=== PATIENT | female | born 1945 | race Caucasian/White ===

== ENCOUNTER → 2017-02-05 | Day surgery (SDC) | payer OTHER ==
[2017-01-30 10:48] VITALS: BMI 51.0
[~2017-02-05] VITALS: Ht 167.6 cm; Wt 144.1 kg
[~2017-02-05] MED LIST: ALBINS/ INH; ALBUAER INH; ALLO300T2 PO; ATV1 PO; BUPR200T2 PO; CALC-51 PO; CHOL20009 PO; CMD4 PO; DTR5 PO; DVNC160 PO; ENOX80IN SQ; GLIP-199 PO; INSDGI SC; LIDOCAINE HCL 2% 2 ML VIAL (20MG/ML) ONE; LPT/40 PO; LSX20 PO; OXGN; OXYC-106 PO; OXYC-292 PO; POLY335019 PO; PROPOFOL IV EMULSION 10 MG/ML 20 ML VIAL IV ONE; RANI300T2 PO; SODIUM CHLORIDE 0.9% 500ML 500 ML IV ONE; WARF6TAB5 PO; ZINC1TAB PO
--- NOTE | 2017-02-05 09:15 | Endo History and Physical ---
History & Physical Date of Service: Feb 05, 2017. Chief Complaint: history of polyps Referring Physician: Dr. Shea History of Present Illness history of polyps Past Medical History Diabetes, Arthritis, Gastrointestinal Disorder, Pulmonary Emboli, Anxiety, Blood Dyscrasias, High Cholesterol, Sleep Apnea, Hypertension, Thrombophlebitis , COPD, Kidney Disease, Other, Depression Past Surgical History Hx Cardiac Surgery: No Hx Internal Defibrillator: No Hx Pacemaker: No Hx Abdominal Surgery: Yes (SIGMOID COLON RESECTION, TUBAL LIGATION, UMBILICAL HERNIA REPAIR) Hx of Implantable Prosthesis: No Hx Post-Op Nausea and Vomiting: No Hx Cancer Surgery: No Hx Thoracic Surgery: No Hx Orthopedic: Yes (RT/LT MINI, MULTIPLE LT HIP REVISIONS (ONLY SPACER)) Hx Urinary Tract Surgery: No Family History None Social History Smoking Status: Former Smoker Hx Substance Use: Yes (SEE MED REC) Hx Alcohol Use: No Allergies Coded Allergies: Quinolones (Verified Allergy, Mild, NEUROLOGIC SYMPTOMS, 01/30/17) Adhesives (Verified Allergy, Unknown, BLISTERS WITH STERI-STRIPS, 01/30/17) Ciprofloxacin (Verified Allergy, Unknown, RASH, 01/30/17) Naproxen (Verified Allergy, Unknown, SWELLING - TOLERATES ESTEVES-[address] HALL, 01/30/17) Penicillins (Verified Allergy, Unknown, HIVES, 01/30/17) Current Medications Reported Home Medications Medications Dose Route/Sig Max Daily Dose Days Date Category Dose Instructions Proventil 0.083% 2.5MG/3ML (Albuterol Sulf) 2.5 Mg/3 Ml Nebu 2.5 Mg INH QID PRN 01/30/17 Reported Jantoven (Warfarin Sodium) 6 Mg Tab 6 Mg PO 5XWK 01/30/17 Reported SUN,TUES,WED,THURS,SAT Oxycodone Hcl Er (Oxycodone Hcl) 10 Mg Tab 10 Mg PO Q12 01/30/17 Reported Zinc (Zinc Gluconate) 50 Mg Tab 1 Tab PO QAM 01/30/17 Reported Percocet 10MG/325MG (Oxycodone/Acetaminophen) Tab 1 Tab PO Q4H PRN 08/21/16 Reported Vitamin D (Cholecalciferol) 2,000 Unit Tab 1 Tab PO QAM 08/21/16 Reported Lantus (Insulin Glargine) 100 Unit/Ml Inj 10 Units SC HS 08/21/16 Reported Glipizide Er (Glipizide) 10 Mg Tab 1 Tab PO BID 08/21/16 Reported Oxygen Gas 2 Liters NA HS 12/20/15 Reported Miralax (Polyethylene Glycol 3350) 1 Pow Pow 17 Gm PO QAM 12/20/15 Reported Calcium (Calcium Carbonate-Vitamin D) 1 Tab Tab 1 Tab PO QAM 12/20/15 Reported Proventil Hfa (Albuterol) Aers 2 Puffs INH QID PRN 12/20/15 Reported Zyloprim (Allopurinol) 300 Mg Tab 300 Mg PO QAM 12/20/15 Reported Zantac (Ranitidine HCl) 300 Mg Tab 300 Mg PO DAILY PRN 08/17/14 Reported Lipitor (Atorvastatin) 40 Mg Tab 40 Mg PO QPM 01/27/12 Reported Diovan * (Valsartan) 160 Mg Cap 160 Mg PO QAM 08/23/10 Reported Wellbutrin Sr (Bupropion HCl) 200 Mg Ertab 200 Mg PO BID 08/23/10 Reported Lasix * (Furosemide) 20 Mg Tab 20 Mg PO QAM 08/23/10 Reported Ativan * (Lorazepam) 1 Mg Tab 1 Mg PO TID PRN 08/23/10 Reported Ditropan * (Oxybutynin Chloride) 5 Mg Tab 5 Mg PO BID 02/21/10 Reported Coumadin * (Warfarin Sodium) 4 Mg Tab 4 Mg PO 2XWK 02/21/10 Reported FRIDAY AND FRIDAY Vital Signs Weight (Kilograms): 144.09 Height (Feet): 5 Height (Inches): 6 Physical Exam General Appearance: WD/WN, no apparent distress Assessment and Plan colonoscopy today
[2017-02-05 09:21] VITALS: Ht 167.6 cm; Wt 144.1 kg
--- NOTE | 2017-02-05 09:57 | GI REPORT ---
Procedure Date: 02/05/2017 9:04 AM Procedure: Colonoscopy Indications: High risk colon cancer surveillance: Personal history of colonic polyps, High risk colon cancer surveillance: Personal history of adenoma with villous component Medicines: See the Anesthesia note for documentation of the administered medications Complications: No immediate complications. Estimated blood loss: Minimal. Estimated Blood Loss: Estimated blood loss was minimal. Procedure: Pre-Anesthesia Assessment: - Prior to the procedure, a History and Physical was performed, and patient medications, allergies and sensitivities were reviewed. The patient's tolerance of previous anesthesia was reviewed. - The risks and benefits of the procedure and the sedation options and risks were discussed with the patient. All questions were answered and informed consent was obtained. - Patient identification and proposed procedure were verified prior to the procedure by the physician and the nurse. The procedure was verified in the pre-procedure area in the procedure room. - Mental Status Examination: alert and oriented. Airway Examination: normal oropharyngeal airway and neck mobility. Respiratory Examination: clear to auscultation. CV Examination: normal. Abdominal Examination: bowel sounds present, abdomen soft and non-tender, no masses or organomegaly noted. - ASA Grade Assessment: III - A patient with severe systemic disease. After I obtained informed consent, the scope was passed under direct vision. Throughout the procedure, the patient's blood pressure, pulse, and oxygen saturations were monitored continuously. The Scope was introduced through the anus and advanced to the cecum, identified by appendiceal orifice and ileocecal valve. The colonoscopy was performed without difficulty. The patient tolerated the procedure well. The quality of the bowel preparation was good. Findings: The perianal and digital rectal examinations were normal. Pertinent negatives include normal sphincter tone and no palpable rectal lesions. Two sessile polyps were found in the descending colon. The polyps were 3 to 4 mm in size. These polyps were removed with a cold snare. Resection and retrieval were complete. Verification of patient identification for the specimen was done by the physician and nurse using the patient's name and date. Estimated blood loss was minimal. Many small and large-mouthed diverticula were found in the sigmoid colon. Internal hemorrhoids were found during retroflexion. The hemorrhoids were medium-sized and Grade I (internal hemorrhoids that do not prolapse). Impression: - Two 3 to 4 mm polyps in the descending colon, removed with a cold snare. Resected and retrieved. - Diverticulosis in the sigmoid colon. - Internal hemorrhoids. Recommendation: - Await pathology results. - Repeat colonoscopy in 3 years for surveillance. - OK to resume anticoagulation. - Return to primary care physician as previously scheduled. - Discharge patient to home. Amanda Vicente D.O. Amanda Vicente DO 02/05/2017 9:57:13 AM This report has been signed electronically. Note Initiated On: 02/05/2017 9:04 AM I attest to the content of the Intraoperative Record and orders documented therein, exceptions below
--- NOTE | 2017-02-05 09:58 | Discharge Instructions ---
Endoscopy Patient Instructions Date / Procedure(s) Performed Feb 05, 2017. Colonoscopy Allergy Information Coded Allergies: Quinolones (Verified Allergy, Mild, NEUROLOGIC SYMPTOMS, 01/30/17) Adhesives (Verified Allergy, Unknown, BLISTERS WITH STERI-STRIPS, 01/30/17) Ciprofloxacin (Verified Allergy, Unknown, RASH, 01/30/17) Naproxen (Verified Allergy, Unknown, SWELLING - TOLERATES ESTEVES-[address] HALL, 01/30/17) Penicillins (Verified Allergy, Unknown, HIVES, 01/30/17) Discharge Date / Findings Feb 05, 2017. polyps, diverticulosis, hemorrhoids Medication Instructions Stopped Medication(s): COUMADIN 4MG LAST DOSE 01/31/17 BRIDGED WITH LOVENOX LAST DOSE 02/04/17 Restart Stopped Medication(s): OK to resume all home medications including blood thinners. as above Provider Instructions Activity Restrictions - No exercising or heavy lifting for 24 hours. - Do not drink alcohol the day of the procedure. - Do not drive a car or operate machinery until the day after the procedure. - Do not make any important decisions or sign important papers in 24 hours after the procedure. Following Day: - Return to full activity which may include returning to work/school. Diet Start your diet with liquids and light foods (jello, soup, juice, toast). Then eat your usual diet if not nauseated. Treatment For Common After Affects For mild abdominal pain, bloating, or excessive gas: - Rest - Eat lightly - Lie on right side Follow-Up Information Follow-up with DR SINGH as scheduled Anesthesia Information What You Should Know You have had a procedure that required some medicine to reduce anxiety and discomfort. This treatment is called moderate sedation. After receiving the treatment, you may be sleepy, but you will be able to breathe on your own. The effects of the treatment may last for several hours. Follow these instructions along with Activity/Diet recommendations noted above: * Do NOT do anything where dizziness or clumsiness would be dangerous. * Rest quietly at home today, then you can be up and about tomorrow. * Have a responsible person stay with you the rest of today. * You may have had an I.V. today. If so, you may take the dressing off later today. Recommendations Call your doctor if: * Trouble breathing * Continuous vomiting for more than 24 hours * Temperature above 101 degrees * Severe abdominal pain or bloating * Pain not relieved by pain medicine ordered * There is increased drainage or redness from any incision * A large amount of rectal bleeding greater than 2-3 tablespoons. (If you had a polyp/s removed or have hemorrhoids, a small amount of blood - from the rectum is to be expected.) * You have any unanswered questions or concerns. IN THE EVENT OF A SERIOUS EMERGENCY, GO TO THE NEAREST EMERGENCY ROOM Your discharge instructions were prepared by provider Amanda Vicente. Patient Instructions Signature Page Pb Liang Patient (or Guardian) Signature/Date: I have read and understand the instructions given to me by my caregivers. Caregiver/RN/Doctor Signature/Date: The above-named patient and/or guardian has received patient instructions on this date. + Original Patient Signature Page (only) stays with chart. Please make copy for patient.
--- NOTE | 2017-02-05 10:20 | Anesthesiology Progress Note ---
Anesthesia Post Op Note Date & Time Feb 05, 2017 at 10:20 Vital Signs Pain Intensity: 0 Vital Signs Past 12 Hours Date Time Temp Pulse Resp B/P Pulse Ox O2 Delivery O2 Flow Rate FiO2 02/05/17 10:14 67 16 142/61 99 Room Air 02/05/17 09:59 80 14 113/58 99 Room Air 02/05/17 09:20 36.5 94 14 199/84 99 Room Air Notes Mental Status: alert / awake / arousable, participated in evaluation Pt Amnestic to Procedure: Yes Nausea / Vomiting: adequately controlled Pain: adequately controlled Airway Patency, RR, SpO2: stable & adequate BP & HR: stable & adequate Hydration State: stable & adequate Anesthetic Complications: no major complications apparent
[2017-02-05 10:29] VITALS: BP 151/67; PULSE 72; O2SAT 97
== END | disposition home or self-care (01) ==
LOC: C.GI 08:45
PROVIDERS: ATTEND Internal Medicine
DX: Z12.11 Encounter for screening for malignant neoplasm of colon (principal); D12.4 Benign neoplasm of descending colon; K64.8 Other hemorrhoids; Z86.010 Personal history of colon polyps; E11.9 Type 2 diabetes mellitus without complications; Z79.01 Long term (current) use of anticoagulants; Z79.4 Long term (current) use of insulin; J44.9 Chronic obstructive pulmonary disease, unspecified; I10 Essential (primary) hypertension; Z87.891 Personal history of nicotine dependence

== ENCOUNTER 2020-06-21 19:55 | Inpatient (IN) ==
[2020-06-21] MEDS ORDERED: SODIUM CHLORIDE 0.9% 1000ML 1,000 ML IV SCH (21:00)
[2020-06-21] MEDS ORDERED: ONDANSETRON INJ 2 MG/ML 2 ML VIAL IV STA (21:04)
--- NOTE | 2020-06-21 21:25 | Emergency Department Note ---
Impression & Plan Diverticulitis, Non-ST elevation ND (NSTEMI), Acute UTI, Weakness, Diarrhea, Kidney stone on left side ED Provider Note Provider: Santana Allison MD DATE OF SERVICE: 06/21/2020 CHIEF COMPLAINT: Diarrhea, chills, weakness HISTORY OF PRESENT ILLNESS: Patient is a 74-year-old female with a past medical history of factor V Leiden, endometrial adenocarcinoma, prior left hip injury, atrial fibrillation, aortic valve dysfunction, GERD, gout and hypertension presenting here today stating that just over 24 hours ago she began to have some lower abdominal discomfort as well as diarrhea. States there is been a little bit of blood in the diarrhea and also had some chills overnight into today. No fever reported. Does report a little bit of urinary frequency and discomfort. Denies trauma. Denies chest pain or shortness of breath at this time. States he feels low but generally weak. Patient also states she had little discomfort of right knee but denies striking it. Patient states she some difficulty with transferring this evening given continued symptoms came here for reevaluation. REVIEW OF SYSTEMS: A total of 10 review of systems was obtained and negative except as stated above in the HPI. PAST MEDICAL HISTORY: As noted above MEDICATIONS: Reviewed home medication list which does include Coumadin SOCIAL HISTORY: Retired and lives with son. PHYSICAL EXAM: GENERAL: alert and oriented in no acute distress on stretcher Head: normocephalic and atraumatic EYES: No injection, discharge or icterus. NECK: Trachea midline. Supple. ENT: Mucous membranes pink and moist. LUNGS: Airway patent. No retractions. Breath sounds clear HEART: Regular rate and rhythm. No chest wall tenderness ABDOMEN: Soft with some slight left lower quadrant tenderness. SKIN: Acyanotic, warm, dry, without rashes EXTREMITIES: Bilateral lower extremities are edematous approximately 2+ bilaterally. No crepitus appreciated. Patient dorsal some slight discomfort around the right knee joint. NEUROLOGICAL: No focal deficits. No aphasia. No facial droop or slurred speech. EK bpm normal sinus rhythm without PVCs or PAC. No acute ST segment elevation concordant leads is noted. When compared to prior EKG from April 08 this year appears similar. CONTINUOUS CARDIAC MONITORING: was ordered and showed a heart rate of 77 bpm in normal sinus rhythm HOSPITAL COURSE: 2099 Patient was first seen and H&P performed. 2234 Patient reassessed and updated. Patient was resting in bed comfortably. Denies any chest pain. Patient's laboratory studies and imaging reviewed. 1 view chest x-ray was reviewed by myself and interpreted showing no acute pneumothorax or pneumonia. Prior reverse left shoulder joint replacement. Mild cardiomegaly noted. 4 view x-ray of the knee was obtained and interpreted and reviewed by myself showing degenerative changes without evidence of dislocation. Do not see clear evidence of acute fracture at this point. Differential includes Infection, dehydration, metabolic abnormality, hypo/hyperglycemia, electrolyte disturbance, anemia, hypoxia, cardiac sources, intracerebral event, toxicologic, neurologic, as well as other pathologies. IMPRESSION/MEDICAL DECISION MAKING: Patient presents here complaining of abdominal symptoms and some weakness since yesterday. Denies any chest pain. No history of kidney stone. History of diverticulitis. Some mild bleeding reported in the stool. Hemoglobin likely stable. EKG without significant changes. Patient denies chest pain. Troponin is significantly elevated. Patient states compliance with Coumadin at home although her INR is subtherapeutic 1.7. proBNP is also mildly elevated. Leukocytes of 12.9 reported. More concern for possible diverticulitis given her pain to left lower quadrant with CT findings and given ceftriaxone. Lactate not elevated. TSH within normal limits. CT scan additionally shows evidence of beyond diverticulitis a large left-sided kidney stone. Again the patient denies a history of stones. proBNP is elevated. Does have some swelling of the lower extremities I believe is more related to edema. Patient had already received initial IV bolus while here. X-ray of the knee without acute fracture noted. Doubt this is acutely infected. Discussed with the [facility] hospitalist for admission for further care. Urinalysis was ordered and does later return positiv e. Already covered with antibiotics and the hospitalist is aware of this finding and her other associated findings including kidney stone. I did order stool cultures and C. difficile although no recent antibiotic exposure given the diarrhea. These are pending collection. DIAGNOSIS: Diverticulitis, left-sided kidney stone, acute UTI, NSTEMI DISPOSITION: Hospitalist will evaluate Patient was agreeable with this plan. Critical Care I have personally spent 32 minutes of critical care time in the direct management of this patient. This includes bedside care, interpretation of diagnostic studies, and testing, discussion with consultants, patient, and family members, and other required patient management activities. These 32 minutes is in excess of all separately billable procedures. Past Med/Surg History Medical History (Updated 06/22/20 @ 00:32 by Santana Allison M.D.) Aortic valve defect pt states she will be needing a valve sx (not scheduled yet) Atrial fibrillation follows with Dr. Bui Chronic back pain Degenerative disc disease Diverticular disease Dyslipidemia Factor 5 Leiden mutation, heterozygous Gastric reflux GERD (gastroesophageal reflux disease) Gout History of anxiety History of blood clots 2003 ? began in left leg and moved to both lungs d/t Factor V History of cellulitis both legs History of COPD mild--inhaler/nebulizer prn History of depression History of esophageal disorder esophageal diverticulum History of obstructive sleep apnea pt wears CPAP History of peripheral neuropathy bilateral feet History of stress incontinence Hx of cancer of uterus diagnosed 03/2019---radiation only Hx of cardiac murmur Hx of carotid artery stenosis left Hx of iron deficiency anemia Hypertension Hyperuricemia Intestinal disorder post op malabsorption On anticoagulant therapy warfarin daily Osteoarthritis Pes planus Post traumatic stress disorder Pulmonary embolism hx of bilateral 2003? Spinal stenosis Stroke 06/03/2019 after I&D left hip--vision loss in left eye--no neurologist Vision abnormalities r peripheral vision loss( posterior ischemic optic neuropathyleft eye), left side altered vision like looking through a screen door Wheelchair dependence Surgical History History of arthroplasty of left hip 2006 @ [facility], [place]--infected after, multiple sx's History of biopsy of bladder benign History of colonoscopy with polypectomy History of incision and drainage 05/2019 of left hip---wound vac placed (currently still on as of 12/31/2019) History of left hip replacement 03/2019 @ [facility] [place] History of left shoulder replacement History of right hip replacement 2005 @ [facility], [place] History of tonsillectomy and adenoidectomy History of tooth extraction Hx of gastric bypass Hx of tubal ligation Hx of umbilical hernia repair mesh inserted S/P colon resection 1984 @ [facility], [place] complete sigmoid removed d/t diverticular disease Family History Mother , age 91 Heart disease Family hx colonic polyps Father , age 42 Factor V deficiency Myocardial infarction Sister No problems noted. Sister Endometrial cancer Brother Family hx colonic polyps Brother , age 50 Meningitis Brother No problems noted. Brother No problems noted. Son No problems noted. Son No problems noted. Son Colon abnormality Son , in his 30 `s , " girl friend over dosed the patients son " Drug overdose Grandfather (Paternal) Family history of diabetes mellitus Other No family history of adverse response to anesthesia Social History Smoking Status: Never smoker Age Started Using Tobacco: 22; packs per day: 0.5; Cigarettes Per Day: 10; Second Hand Exposure: Yes (parents smoked/ smoked); Hx Alcohol Use: No Hx Substance Use: No Preferred Language: Upper Sorbian Communication Ability: Effective Visual Impairment: Limited Hearing Ability: Normal Middleware Consultant Required: No Beliefs That Will Affect Care: None marital status: / Current Living Situation: Family Current Living Situation Comment: Lives with son current occupational status: retired 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 Feels Safe at Home: Yes Allergies Allergies Allergy/AdvReac Type Severity Reaction Status Date / Time adhesive Allergy Intermediate BLISTERS Verified 06/21/20 22:26 WITH STERI-STRIPS Iodinated Contrast Media Allergy Intermediate hive Verified 06/21/20 22:26 [Iodinated Contrast- Oral and IV Dye] naproxen Allergy Intermediate SWELLING - Verified 06/21/20 22:26 TOLERATES ESTEVES-[address] HALL ciprofloxacin Allergy Mild RASH Verified 06/21/20 22:26 Quinolones Allergy Mild NEUROLOGIC Verified 06/21/20 22:26 SYMPTOMS Cipro Allergy Unknown RASH Verified 02/05/17 10:40 Home Meds Home Medications Medication Instructions Recorded Confirmed allopurinol 100 mg PO BID 06/23/19 06/21/20 ascorbic acid (vitamin C) [Vitamin 250 mg PO BID 06/23/19 06/21/20 C] buspirone 5 mg PO TID 06/23/19 06/21/20 cyanocobalamin (vitamin B-12) 1,000 mcg IM UD 06/23/19 06/21/20 duloxetine [Cymbalta] 40 mg PO HS 06/23/19 06/21/20 ondansetron 4 mg PO Q8H PRN 06/23/19 06/21/20 oxycodone [Roxicodone] 5 mg PO Q4 PRN 06/23/19 06/21/20 Flintstones Complete 1 tab PO BID 08/27/19 06/21/20 docusate sodium 100 mg capsule 100 mg PO BID PRN 08/30/19 06/21/20 acetaminophen 650 mg PO Q4 PRN 12/31/19 06/21/20 atorvastatin 40 mg PO PM 12/31/19 06/21/20 bupropion HCl 200 mg PO BID 12/31/19 06/21/20 calcium carbonate [Tums Extra 750 mg PO UD PRN 12/31/19 06/21/20 Strength Smoothies] calcium carbonate-vitamin D3 1 cap PO BID 12/31/19 06/21/20 [Calcium 600 with Vitamin D3] carvedilol 3.125 mg PO BID 12/31/19 06/21/20 cholecalciferol (vitamin D3) 2,000 unit PO QAM 12/31/19 06/21/20 [Vitamin D3] furosemide 20 mg PO QAM 12/31/19 06/21/20 nystatin 1 appln TOP BID PRN 12/31/19 06/21/20 omeprazole 20 mg PO QAM 12/31/19 06/21/20 oxybutynin chloride 5 mg PO BID 12/31/19 06/21/20 spironolactone 25 mg PO QAM 12/31/19 06/21/20 valsartan 320 mg PO QAM 12/31/19 06/21/20 diphenoxylate-atropine [Lomotil] 0 tab PO Q6H PRN MDD 8 tablets (20 04/08/20 06/21/20 mg) lactobacillus combination no.4 3,000 mmu cells PO DAILY 06/21/20 06/21/20 [Probiotic] potassium chloride [K-Tab] 20 meq PO DAILY 06/21/20 06/21/20 warfarin 2 mg PO .Q TU & Fri06/21/20 06/21/20 warfarin 4 mg PO [id number] 06/21/20 06/21/20 Results & Data (ED) Vital Signs Vital Signs - 24 hr 06/21/20 20:13 06/21/20 21:55 06/21/20 22:02 Temperature 37.2 C Temperature Source Oral Pulse Rate 76 Pulse Rate [Apical] 62 Respiratory Rate 18 18 Respiratory Effort / Characteristics Non-Labored Respiratory Depth Normal Respiratory Pattern Blood Pressure 102/69 Blood Pressure [Right Arm] 104/53 L Blood Pressure Mean 80 Blood Pressure Mean [Right Arm] 70 Blood Pressure Position [Right Arm] Pulse Oximetry 97 98 96 Oxygen Delivery Method Room Air Room Air Sepsis Recent Fever Within 48 Hours No Sepsis New/Unexplained Change in Mental Status N/A Sepsis Action Taken by Nursing No Action Required 06/21/20 23:22 06/22/20 01:03 Temperature Temperature Source Pulse Rate 60 Pulse Rate [Apical] 77 Respiratory Rate 18 18 Respiratory Effort / Characteristics Non-Labored Respiratory Depth Normal Respiratory Pattern Regular Blood Pressure 99/54 L Blood Pressure [Right Arm] 98/61 L Blood Pressure Mean Blood Pressure Mean [Right Arm] 73 Blood Pressure Position [Right Arm] Lying Pulse Oximetry 97 96 Oxygen Delivery Method Room Air Room Air Sepsis Recent Fever Within 48 Hours Sepsis New/Unexplained Change in Mental Status Sepsis Action Taken by Nursing Laboratory Data Result diagrams: 06/22/20 00:38 06/21/20 21:46 Lab Results 06/21/20 06/21/20 06/21/20 Range/Units 21:46 21:46 21:46 WBC 12.92 H (4.8-10.8) K/uL RBC 3.59 L (4.2-5.4) M/uL Hgb 11.1 L (12.0-16.0) g/dL Hct 34.2 L (37-47) % MCV 95.3 (80-100) fL MCH 30.9 (25-34) pg MCHC 32.5 (32-36) g/dL RDW Std Deviation 52.4 H (36.4-46.3) fL RDW Coeff of Karla 15.0 H (11.5-14.5) % Plt Count 174 (130-400) K/uL MPV 10.4 (7.4-10.4) fL Immature Gran % (Auto) 0.2 % Neut % (Auto) 87.1 % Lymph % (Auto) 7.2 % [place] % (Auto) 5.1 % Eos % (Auto) 0.2 % Baso % (Auto) 0.2 % Neut # (Auto) 11.27 H (1.4-6.5) K/uL Lymph # (Auto) 0.93 L (1.2-3.4) K/uL [place] # (Auto) 0.66 H (0.11-0.59) K/uL Eos # (Auto) 0.02 (0-0.5) K/uL Baso # (Auto) 0.02 (0-0.2) K/uL Immature Gran # (Auto) 0.02 (0.00-0.02) K/uL PT 17.8 H (9.0-12.0) Seconds INR 1.7 H (0.9-1.1) APTT 31.3 H (21.0-31.0) Seconds PTT Ratio 1.1 Sodium 141 (136-145) mmol/L Potassium 3.7 (3.5-5.1) mmol/L Chloride 110 H (98-107) mmol/L Carbon Dioxide 27 (21-32) mmol/L Anion Gap 4.0 (3-11) BUN 32 H (7-18) mg/dl Creatinine 0.93 (0.6-1.2) mg/dl Est Cr Clr Drug Dosing Not Reportable Est GFR ( Amer) 70.7 Est GFR (Non-Af Amer) 61.0 BUN/Creatinine Ratio 34.2 H (10-20) Glucose 81 (70-99) mg/dl Lactate (0.4-2.0) mmol/L Calcium 8.2 L (8.5-10.1) mg/dl Magnesium 2.0 (1.8-2.4) mg/dl Total Bilirubin 0.4 (0.2-1) mg/dl AST 36 (15-37) U/L ALT 32 (12-78) U/L Alkaline Phosphatase 100 (45-117) U/L Troponin I 3.350 H* (0-0.045) ng/ml NT-Pro-B Natriuret Pep 6545 H (0-900) pg/ml Total Protein 4.8 L (6.4-8.2) gm/dl Albumin 1.9 L (3.4-5.0) gm/dl Globulin 2.9 (2.5-4.0) gm/dl Albumin/Globulin Ratio 0.7 L (0.9-2) TSH 2.160 (0.300-4.500) uIu/ml Urine Color Urine Appearance (Clear) Urine pH (4.5-7.5) Ur Specific [place] (1.000-1.030) Urine Protein (Negative) Urine Glucose (UA) (Negative) Urine Ketones (Negative) Urine Blood (Negative) Urine Nitrite (Negative) Urine Bilirubin (Negative) Urine Urobilinogen (Negative) Ur Leukocyte Esterase (Negative) Urine WBC (Auto) (0-5) /hpf Urine RBC (Auto) (0-4) /hpf U Hyaline Cast (Auto) (0-5) /lpf U Epithel Cells (Auto) (0-5) /lpf Urine Bacteria (Auto) (Negative) Blood Type Antibody Screen 06/21/20 06/21/20 06/22/20 Range/Units 21:57 22:45 00:38 WBC (4.8-10.8) K/uL RBC (4.2-5.4) M/uL Hgb (12.0-16.0) g/dL Hct (37-47) % MCV (80-100) fL MCH (25-34) pg MCHC (32-36) g/dL RDW Std Deviation (36.4-46.3) fL RDW Coeff of Karla (11.5-14.5) % Plt Count (130-400) K/uL MPV (7.4-10.4) fL Immature Gran % (Auto) % Neut % (Auto) % Lymph % (Auto) % [place] % (Auto) % Eos % (Auto) % Baso % (Auto) % Neut # (Auto) (1.4-6.5) K/uL Lymph # (Auto) (1.2-3.4) K/uL [place] # (Auto) (0.11-0.59) K/uL Eos # (Auto) (0-0.5) K/uL Baso # (Auto) (0-0.2) K/uL Immature Gran # (Auto) (0.00-0.02) K/uL PT (9.0-12.0) Seconds INR (0.9-1.1) APTT (21.0-31.0) Seconds PTT Ratio Sodium (136-145) mmol/L Potassium (3.5-5.1) mmol/L Chloride (98-107) mmol/L Carbon Dioxide (21-32) mmol/L Anion Gap (3-11) BUN (7-18) mg/dl Creatinine (0.6-1.2) mg/dl Est Cr Clr Drug Dosing Est GFR ( Amer) Est GFR (Non-Af Amer) BUN/Creatinine Ratio (10-20) Glucose (70-99) mg/dl Lactate 1.4 (0.4-2.0) mmol/L Calcium (8.5-10.1) mg/dl Magnesium (1.8-2.4) mg/dl Total Bilirubin (0.2-1) mg/dl AST (15-37) U/L ALT (12-78) U/L Alkaline Phosphatase (45-117) U/L Troponin I (0-0.045) ng/ml NT-Pro-B Natriuret Pep (0-900) pg/ml Total Protein (6.4-8.2) gm/dl Albumin (3.4-5.0) gm/dl Globulin (2.5-4.0) gm/dl Albumin/Globulin Ratio (0.9-2) TSH (0.300-4.500) uIu/ml Urine Color Dark Yellow Urine Appearance Cloudy A (Clear) Urine pH 5.0 (4.5-7.5) Ur Specific [place] 1.019 (1.000-1.030) Urine Protein Negative (Negative) Urine Glucose (UA) Negative (Negative) Urine Ketones Trace H (Negative) Urine Blood Negative (Negative) Urine Nitrite Positive A (Negative) Urine Bilirubin Negative (Negative) Urine Urobilinogen Negative (Negative) Ur Leukocyte Esterase 2+ H (Negative) Urine WBC (Auto) 10-30 H (0-5) /hpf Urine RBC (Auto) 0-4 (0-4) /hpf U Hyaline Cast (Auto) 5-10 H (0-5) /lpf U Epithel Cells (Auto) 0-5 (0-5) /lpf Urine Bacteria (Auto) 4+ H (Negative) Blood Type A Positive Antibody Screen NEGATIVE 06/22/20 06/22/20 Range/Units 00:38 00:38 WBC (4.8-10.8) K/uL RBC (4.2-5.4) M/uL Hgb 10.3 L (12.0-16.0) g/dL Hct 31.6 L (37-47) % MCV (80-100) fL MCH (25-34) pg MCHC (32-36) g/dL RDW Std Deviation (36.4-46.3) fL RDW Coeff of Karla (11.5-14.5) % Plt Count (130-400) K/uL MPV (7.4-10.4) fL Immature Gran % (Auto) % Neut % (Auto) % Lymph % (Auto) % [place] % (Auto) % Eos % (Auto) % Baso % (Auto) % Neut # (Auto) (1.4-6.5) K/uL Lymph # (Auto) (1.2-3.4) K/uL [place] # (Auto) (0.11-0.59) K/uL Eos # (Auto) (0-0.5) K/uL Baso # (Auto) (0-0.2) K/uL Immature Gran # (Auto) (0.00-0.02) K/uL PT (9.0-12.0) Seconds INR (0.9-1.1) APTT (21.0-31.0) Seconds PTT Ratio Sodium (136-145) mmol/L Potassium (3.5-5.1) mmol/L Chloride (98-107) mmol/L Carbon Dioxide (21-32) mmol/L Anion Gap (3-11) BUN (7-18) mg/dl Creatinine (0.6-1.2) mg/dl Est Cr Clr Drug Dosing Est GFR ( Amer) Est GFR (Non-Af Amer) BUN/Creatinine Ratio (10-20) Glucose (70-99) mg/dl Lactate (0.4-2.0) mmol/L Calcium (8.5-10.1) mg/dl Magnesium (1.8-2.4) mg/dl Total Bilirubin (0.2-1) mg/dl AST (15-37) U/L ALT (12-78) U/L Alkaline Phosphatase (45-117) U/L Troponin I 3.150 H* (0-0.045) ng/ml NT-Pro-B Natriuret Pep (0-900) pg/ml Total Protein (6.4-8.2) gm/dl Albumin (3.4-5.0) gm/dl Globulin (2.5-4.0) gm/dl Albumin/Globulin Ratio (0.9-2) TSH (0.300-4.500) uIu/ml Urine Color Urine Appearance (Clear) Urine pH (4.5-7.5) Ur Specific [place] (1.000-1.030) Urine Protein (Negative) Urine Glucose (UA) (Negative) Urine Ketones (Negative) Urine Blood (Negative) Urine Nitrite (Negative) Urine Bilirubin (Negative) Urine Urobilinogen (Negative) Ur Leukocyte Esterase (Negative) Urine WBC (Auto) (0-5) /hpf Urine RBC (Auto) (0-4) /hpf U Hyaline Cast (Auto) (0-5) /lpf U Epithel Cells (Auto) (0-5) /lpf Urine Bacteria (Auto) (Negative) Blood Type Antibody Screen Administered Medications Discontinued Medications Sodium Chloride (Nss 1000ml) 1,000 mls @ 999 mls/hr IV .[id number] NAY Stop: 06/21/20 22:00 Last Infusion: 06/21/20 23:05 Dose: 0 mls/hr Documented by: [id number] Admin: 06/21/20 22:02 Dose: 999 mls/hr Documented by: [id number] Ceftriaxone Sodium (Rocephin) 2,000 mg in 70 mls @ 140 mls/hr IV NOW STA Stop: 06/21/20 22:37 Last Infusion: 06/21/20 23:05 Dose: 0 mls/hr Documented by: [id number] Admin: 06/21/20 22:32 Dose: 140 mls/hr Documented by: [id number] Metronidazole (Flagyl) 500 mg in 100 mls @ 100 mls/hr IV NOW STA Stop: 06/22/20 00:01 Last Admin: 06/21/20 23:27 Dose: 100 mls/hr Documented by: [id number] Cefepime HCl (Maxipime) 2,000 mg in 20 mls @ 5 mls/min IV NOW STA; Protocol Stop: 06/21/20 23:12 Last Admin: 06/21/20 23:27 Dose: 5 mls/min Documented by: [id number] Miscellaneous (Patient's Weight Needed) 1 ea N/A NOW STA Stop: 06/22/20 00:15 Last Admin: 06/22/20 00:43 Dose: 1 ea Documented by: [id number] Ondansetron HCl (Ondansetron Inj 2 Mg/Ml 2 Ml Vial) 4 mg IV NOW STA Stop: 06/21/20 21:05 Last Admin: 06/21/20 22:02 Dose: 4 mg Documented by: [id number] Discharge Plan Visit Data Chief Complaint: Illness Stated Complaint: CHILLS, DIARRHEA ED Provider: Santana Allison Discharge Problem: Diverticulitis, Non-ST elevation ND (NSTEMI), Acute UTI, Weakness, Diarrhea, Kidney stone on left side Patient Disposition: Admitted As Inpatient Discharge Instructions Interventions: ED Discharge Assessment Last Done: 06/22/20 01:03 Forms Stand Alone Forms: [facility] Prescriptions Prescriptions: No Action Flintstones Complete Tablet,Chewable 1 tab PO BID RF: 0 acetaminophen 325 mg Tablet 650 mg PO Q4 PRN (Reason: Pain) RF: 0 calcium carbonate [Tums Extra Strength Smoothies] 300 mg (750 mg) Tablet,Chewable 750 mg PO UD PRN (Reason: Heartburn) RF: 0 spironolactone 25 mg Tablet 25 mg PO QAM RF: 0 carvedilol 3.125 mg Tablet 3.125 mg PO BID RF: 0 omeprazole 20 mg Tablet,Delayed Release (Dr/Ec) 20 mg PO QAM RF: 0 nystatin 100,000 unit/gram powder 1 appln TOP BID PRN (Reason: rash) RF: 0 atorvastatin 40 mg Tablet 40 mg PO PM RF: 0 valsartan 320 mg Tablet 320 mg PO QAM RF: 0 furosemide 20 mg Tablet 20 mg PO QAM RF: 0 oxybutynin chloride 5 mg Tablet 5 mg PO BID RF: 0 bupropion HCl 200 mg Tablet Sustained-Release 12 Hr 200 mg PO BID RF: 0 cholecalciferol (vitamin D3) [Vitamin D3] 50 mcg (2,000 unit) Tablet 2,000 unit PO QAM RF: 0 calcium carbonate-vitamin D3 [Calcium 600 with Vitamin D3] 600 mg(1,500mg) - 500 unit Capsule 1 cap PO BID RF: 0 oxycodone [Roxicodone] 5 mg Tablet 5 mg PO Q4 PRN (Reason: Pain) RF: 0 buspirone 5 mg Tablet 5 mg PO TID RF: 0 ascorbic acid (vitamin C) [Vitamin C] 250 mg Tablet 250 mg PO BID RF: 0 ondansetron 4 mg Tablet,Disintegrating 4 mg PO Q8H PRN (Reason: Nausea) RF: 0 allopurinol 100 mg Tablet 100 mg PO BID RF: 0 duloxetine [Cymbalta] 20 mg Capsule,Delayed Release(Dr/Ec) 40 mg PO HS RF: 0 cyanocobalamin (vitamin B-12) 1,000 mcg/mL Kit 1,000 mcg IM UD RF: 0 docusate sodium 100 mg capsule 100 mg PO BID PRN (Reason: constipation) RF: 0 diphenoxylate-atropine [Lomotil] 2.5-0.025 mg tablet 0 tab PO Q6H MDD 8 tablets (20 mg) PRN (Reason: diarrhea) RF: 0 potassium chloride [K-Tab] 10 mEq tablet extended release 20 meq PO DAILY RF: 0 Probiotic 3 billion cell Capsule 3,000 mmu cells PO DAILY RF: 0 warfarin 4 mg tablet 4 mg PO [id number] RF: 0 warfarin 4 mg tablet 2 mg PO .Q TUES & FRI RF: 0 Referrals Referrals: Sadi Shea DO [Primary Care Provider] - Discharge Problem: Diarrhea Qualifiers: Diarrhea type: unspecified type Qualified Code(s): R19.7 - Diarrhea, unspecified
[2020-06-21 21:57] LABS: Basophils # (auto) 0.02 K/uL (0-0.2); Basophils % (auto) 0.2 %; Eosinophils # (auto) 0.02 K/uL (0-0.5); Eosinophils % (auto) 0.2 %; Hematocrit (blood only) 34.2 % (37-47); Hemoglobin 11.1 g/dL (12.0-16.0); Immature Granulocytes # (auto) 0.02 K/uL (0.00-0.02); Immature Granulocytes % (auto) 0.2 %; Lymphocytes # (auto) 0.93 K/uL (1.2-3.4); Lymphocytes % (auto) 7.2 %; Mean Corpuscular Hemoglobin 30.9 pg (25-34); Mean Corpuscular Hgb Conc 32.5 g/dL (32-36); Mean Corpuscular Volume 95.3 fL (80-100); Mean Platelet Volume 10.4 fL (7.4-10.4); Monocytes # (auto) 0.66 K/uL (0.11-0.59); Monocytes % (auto) 5.1 %; Neutrophils # (auto) 11.27 K/uL (1.4-6.5); Neutrophils % (auto) 87.1 %; Platelet Count 174 K/uL (130-400); RDW Standard Deviation 52.4 fL (36.4-46.3); Red Blood Count 3.59 M/uL (4.2-5.4); White Blood Count 12.92 K/uL (4.8-10.8)
[2020-06-21 22:08] LABS: INR 1.7 (0.9-1.1); Partial Thromboplastin Ratio 1.1; Partial Thromboplastin Time 31.3 Seconds (21.0-31.0); Prothrombin Time 17.8 Seconds (9.0-12.0)
[2020-06-21] MEDS ORDERED: cefTRIAXone SODIUM 2,000 MG/70 ML BAG IV STA (22:08)
[2020-06-21 22:13] LABS: Alanine Aminotransferase 32 U/L (12-78); Albumin Level 1.9 gm/dl (3.4-5.0); Aspartate Aminotransferase 36 U/L (15-37); BUN Creatinine Ratio 34.2 (10-20); Blood Urea Nitrogen 32 mg/dl (7-18); Calcium 8.2 mg/dl (8.5-10.1); Carbon Dioxide 27 mmol/L (21-32); Chloride 110 mmol/L (98-107); Est GFR (African American) 70.7; Glucose 81 mg/dl (70-99); Potassium 3.7 mmol/L (3.5-5.1); Sodium 141 mmol/L (136-145)
[2020-06-21 22:28] LABS: Albumin Globulin Ratio 0.7 (0.9-2); Alkaline Phosphatase 100 U/L (45-117); Bilirubin,Total 0.4 mg/dl (0.2-1); Globulin 2.9 gm/dl (2.5-4.0); NT Pro B Type Natriuretic Pept 6545 pg/ml (0-900); Total Protein 4.8 gm/dl (6.4-8.2)
[2020-06-21] MEDS ORDERED: metroNIDAZOLE 500 MG/100 ML BAG IV STA (23:02)
[2020-06-21 23:08] LABS: Appearance Urine Cloudy (Clear); Bacteria Urine Automated 4+ (Negative); Bilirubin Urine Negative (Negative); Blood Urine Negative (Negative); Color Urine Dark Yellow; Epithelial Cell Urine Auto 0-5 /lpf (0-5); Glucose Urine UA Negative (Negative); Ketones Urine Trace (Negative); Leukocyte Esterase Urine 2+ (Negative); Nitrite Urine Positive (Negative); Protein Urine Negative (Negative); RBC Urine Automated 0-4 /hpf (0-4); Specific Gravity Urine 1.019 (1.000-1.030); Urobilinogen Urine Negative (Negative)
[2020-06-21] MEDS ORDERED: CEFEPIME 2,000 MG/20 ML VIAL IV STA (23:09)
[2020-06-21] MEDS ORDERED: DAPTOMYCIN CONSULT ACTIVE PRN (23:55)
--- NOTE | 2020-06-21 23:55 | History & Physical Report ---
Date of Service June 21, 2020 Assessment & Plan (1) Sepsis: Admission and Anticipated Discharge Date Admission Date: Multifactorial : Diverticulitis rule out C. difficile, patient with L GIB symptoms, hemoglobin at baseline although BP soft Complicated UTI, obstructive uropathy (hx recurrent UTI, VRE as per records) Troponin elevation secondary to above History nonocclusive CAD/PVD/stroke as per records Chronic diastolic heart failure Equivocal volume status Congestion on x-ray Patient intravascularly dry. Hypertension, BP on the lower side hypercoagulable state (recurrent PE/DVT plus factor V Leiden mutation status post IVC filter placement on Coumadin), subtherapeutic INR COPD, not in acute exacerbation hyperlipidemia, on statin Rx moderate/severe aortic stenosis (DSE 2018) uterine cancer status post radiation DM 2 diet-controlled, well-controlled as of recent outpatient hemoglobin A1c of 5.14 November 2019 past tobacco abuse. PCU given troponin elevation Cultures, Daptomycin and Cefepime for complicated UTI on the basis of urinary pathogen history Add Flagyl to cefepime for diverticulitis Check stool C. difficile Urology consult Re: Obstructive uropathy N.p.o. until patient seen by urology in a.m. Appropriate to hold anticoagulation for now given a GI bleed Transfuse PRBC if hemoglobin less than 8 and or for symptomatic anemia Follow troponin TTE RE troponin elevation Cardiology consult if with troponin progression Appropriate to hold antihypertensives for now given low blood pressure DVT prophylaxis. SCDs while Coumadin on hold if INR less than 2 RE L GIB Full code Text document was generated using [employer] voice recognition software. It may contain grammatical or spelling errors. Kindly contact undersigned for clarification of any documentation item in question. History of Present Illness Chief Complaint: Fever chills abdominal pain Primary Care Provider: Sadi Shea DO History obtained from patient and records. Medical history significant for hypercoagulable state (recurrent PE/DVT plus factor V Leiden mutation status post IVC filter placement on Coumadin), COPD, chronic diastolic heart failure (EF 70%, TTE 2018), nonocclusive CAD/PVD as per records, history CVA as per records hypertension, hyperlipidemia, moderate/severe aortic stenosis (DSE 2018), chronic anemia (baseline hemoglobin 10-11), uterine cancer status post radiation, DM 2 diet-controlled, recurrent UTIs (hx VRE as per records), NICOLASA on BiPAP, history gastric bypass surgery, history diverticulosis/internal hemorrhoids, past tobacco abuse. Last confinement January 2012 for complicated UTI. Cultures grew Morganella morganii and Enterococcus. Yesterday patient noted gassy lower abdominal discomfort with bloody diarrhea symptoms and dysuria symptoms. Fever, chills at home. Patient denies chest pain, cough, S OB. Right leg more swollen than usual as per patient. At the ER, patient received ceftriaxone for sepsis. Medical History as above 2020 colonoscopy showed sigmoid diverticulosis and internal hemorrhoids. 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 Allergies Allergy/AdvReac Type Severity Reaction Status Date / Time adhesive Allergy Intermediate BLISTERS Verified 06/21/20 22:26 WITH STERI-STRIPS Iodinated Contrast Media Allergy Intermediate hive Verified 06/21/20 22:26 [Iodinated Contrast- Oral and IV Dye] naproxen Allergy Intermediate SWELLING - Verified 06/21/20 22:26 TOLERATES ESTEVES-[address] HALL ciprofloxacin Allergy Mild RASH Verified 06/21/20 22:26 Quinolones Allergy Mild NEUROLOGIC Verified 06/21/20 22:26 SYMPTOMS Cipro Allergy Unknown RASH Verified 02/05/17 10:40 Home Medications Home Medications Medication Instructions Recorded Confirmed Type allopurinol 100 mg PO BID 06/23/19 06/21/20 History ascorbic acid (vitamin C) [Vitamin 250 mg PO BID 06/23/19 06/21/20 History C] buspirone 5 mg PO TID 06/23/19 06/21/20 History cyanocobalamin (vitamin B-12) 1,000 mcg IM UD 06/23/19 06/21/20 History duloxetine [Cymbalta] 40 mg PO HS 06/23/19 06/21/20 History ondansetron 4 mg PO Q8H PRN 06/23/19 06/21/20 History oxycodone [Roxicodone] 5 mg PO Q4 PRN 06/23/19 06/21/20 History Flintstones Complete 1 tab PO BID 08/27/19 06/21/20 History docusate sodium 100 mg capsule 100 mg PO BID PRN 08/30/19 06/21/20 History acetaminophen 650 mg PO Q4 PRN 12/31/19 06/21/20 History atorvastatin 40 mg PO PM 12/31/19 06/21/20 History bupropion HCl 200 mg PO BID 12/31/19 06/21/20 History calcium carbonate [Tums Extra 750 mg PO UD PRN 12/31/19 06/21/20 History Strength Smoothies] calcium carbonate-vitamin D3 1 cap PO BID 12/31/19 06/21/20 History [Calcium 600 with Vitamin D3] carvedilol 3.125 mg PO BID 12/31/19 06/21/20 History cholecalciferol (vitamin D3) 2,000 unit PO QAM 12/31/19 06/21/20 History [Vitamin D3] furosemide 20 mg PO QAM 12/31/19 06/21/20 History nystatin 1 appln TOP BID PRN 12/31/19 06/21/20 History omeprazole 20 mg PO QAM 12/31/19 06/21/20 History oxybutynin chloride 5 mg PO BID 12/31/19 06/21/20 History spironolactone 25 mg PO QAM 12/31/19 06/21/20 History valsartan 320 mg PO QAM 12/31/19 06/21/20 History diphenoxylate-atropine [Lomotil] 0 tab PO Q6H PRN MDD 8 tablets (04/08/20 06/21/20 History mg) lactobacillus combination no.4 3,000 mmu cells PO DAILY 06/21/20 06/21/20 History [Probiotic] potassium chloride [K-Tab] 20 meq PO DAILY 06/21/20 06/21/20 History warfarin 2 mg PO .Q TUES & FRI 06/21/20 06/21/20 History warfarin 4 mg PO 5XWK 06/21/20 06/21/20 History Past Med/Surg History Medical History (Updated 06/22/20 @ 08:36 by MORGAN Dozier) Aortic valve defect pt states she will be needing a valve sx (not scheduled yet) Atrial fibrillation follows with Dr. Bui Chronic back pain Degenerative disc disease Diverticular disease Dyslipidemia Factor 5 Leiden mutation, heterozygous Gastric reflux GERD (gastroesophageal reflux disease) Gout History of anxiety History of blood clots 2002 ? began in left leg and moved to both lungs d/t Factor V History of cellulitis both legs History of COPD mild--inhaler/nebulizer prn History of depression History of esophageal disorder esophageal diverticulum History of obstructive sleep apnea pt wears CPAP History of peripheral neuropathy bilateral feet History of stress incontinence Hx of cancer of uterus diagnosed 03/2019---radiation only Hx of cardiac murmur Hx of carotid artery stenosis left Hx of iron deficiency anemia Hypertension Hyperuricemia Intestinal disorder post op malabsorption On anticoagulant therapy warfarin daily Osteoarthritis Pes planus Post traumatic stress disorder Pulmonary embolism hx of bilateral 2002? Spinal stenosis Stroke 06/03/2019 after I&D left hip--vision loss in left eye--no neurologist Vision abnormalities r peripheral vision loss( posterior ischemic optic neuropathyleft eye), left side altered vision like looking through a screen door Wheelchair dependence Surgical History History of arthroplasty of left hip 2006 @ [facility]--infected after, multiple sx's History of biopsy of bladder benign History of colonoscopy with polypectomy History of incision and drainage 05/2019 of left hip---wound vac placed (currently still on as of 12/31/2019) History of left hip replacement 03/2019 @ [facility] [place] History of left shoulder replacement History of right hip replacement 2005 @ [facility] History of tonsillectomy and adenoidectomy History of tooth extraction Hx of gastric bypass Hx of tubal ligation Hx of umbilical hernia repair mesh inserted S/P colon resection 1984 @ [facility] complete sigmoid removed d/t diverticular disease Family History Mother , age 91 Heart disease Family hx colonic polyps Father , age 42 Factor V deficiency Myocardial infarction Sister No problems noted. Sister Endometrial cancer Brother Family hx colonic polyps Brother , age 50 Meningitis Brother No problems noted. Brother No problems noted. Son No problems noted. Son No problems noted. Son Colon abnormality Son , in his 30 `s , " girl friend over dosed the patients son " Drug overdose Grandfather (Paternal) Family history of diabetes mellitus Other No family history of adverse response to anesthesia Social History Smoking Status: Former smoker Age Started Using Tobacco: 22; packs per day: 0.5; Cigarettes Per Day: 10; Smoking End Date: 1998; Second Hand Exposure: Yes (parents smoked/ smoked); Hx Alcohol Use: No Hx Substance Use: No Preferred Language: Moroccan Communication Ability: Effective Visual Impairment: Limited Hearing Ability: Normal Compressor Station Engineer Required: No Beliefs That Will Affect Care: None marital status: / Current Living Situation: Family Current Living Situation Comment: lives with son giovanny) current occupational status: retired 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 Other Information That Helps Us Care for You: No Feels Safe at Home: Yes Safety Concerns: Feels Safe At This Time Review of Systems Review of Systems: As per HPI, all 10 systems reviewed, all other ROS negative Physical Exam Physical Exam: GENERAL: Comfortable, pleasant, obese, no respiratory distress SKIN: Pallor, warm HEENT: Pale palpebral conjunctivae, no ptosis, dry buccal mucosa NECK : Supple, short neck, no tenderness CHEST : Decreased breath sounds , no tenderness HEART : RRR, systolic murmur ABDOMEN: Some distention, hypogastric tenderness EXTREMITIES : RLE swelling, no LE tenderness, no other conspicuous deformities noted NEUROLOGIC : Coherent, no facial asymmetry, no other gross focality Results & Data Results & Data ([facility]) Vital Signs (Past 12 Hours) Vital Signs Temp Pulse Pulse Resp BP BP Pulse Ox 06/21/20 23:22 77 18 98/61 L 97 06/21/20 22:02 96 06/21/20 21:55 62 18 104/53 L 98 06/21/20 20:13 37.2 C 76 18 102/69 97 Laboratory Results Laboratory Results WBC 12.92 K/uL (4.8-10.8) H 06/21/20 21:46 RBC 3.59 M/uL (4.2-5.4) L 06/21/20 21:46 Hgb 11.1 g/dL (12.0-16.0) L 06/21/20 21:46 Hct 34.2 % (37-47) L 06/21/20 21:46 MCV 95.3 fL (80-100) 06/21/20 21:46 MCH 30.9 pg (25-34) 06/21/20 21:46 MCHC 32.5 g/dL (32-36) 06/21/20 21:46 RDW Std Deviation 52.4 fL (36.4-46.3) H 06/21/20 21:46 RDW Coeff of Karla 15.0 % (11.5-14.5) H 06/21/20 21:46 Plt Count 174 K/uL (130-400) 06/21/20 21:46 MPV 10.4 fL (7.4-10.4) 06/21/20 21:46 Immature Gran % (Auto) 0.2 % 06/21/20 21:46 Neut % (Auto) 87.1 % 06/21/20 21:46 Lymph % (Auto) 7.2 % 06/21/20 21:46 [place] % (Auto) 5.1 % 06/21/20 21:46 Eos % (Auto) 0.2 % 06/21/20 21:46 Baso % (Auto) 0.2 % 06/21/20 21:46 Neut # (Auto) 11.27 K/uL (1.4-6.5) H 06/21/20 21:46 Lymph # (Auto) 0.93 K/uL (1.2-3.4) L 06/21/20 21:46 [place] # (Auto) 0.66 K/uL (0.11-0.59) H 06/21/20 21:46 Eos # (Auto) 0.02 K/uL (0-0.5) 06/21/20 21:46 Baso # (Auto) 0.02 K/uL (0-0.2) 06/21/20 21:46 Immature Gran # (Auto) 0.02 K/uL (0.00-0.02) 06/21/20 21:46 PT 17.8 Seconds (9.0-12.0) H 06/21/20 21:46 INR 1.7 (0.9-1.1) H 06/21/20 21:46 APTT 31.3 Seconds (21.0-31.0) H 06/21/20 21:46 PTT Ratio 1.1 06/21/20 21:46 Sodium 141 mmol/L (136-145) 06/21/20 21:46 Potassium 3.7 mmol/L (3.5-5.1) 06/21/20 21:46 Chloride 110 mmol/L (98-107) H 06/21/20 21:46 Carbon Dioxide 27 mmol/L (21-32) 06/21/20 21:46 Anion Gap 4.0 (3-11) 06/21/20 21:46 BUN 32 mg/dl (7-18) H 06/21/20 21:46 Creatinine 0.93 mg/dl (0.6-1.2) 06/21/20 21:46 Est Cr Clr Drug Dosing Not Reportable 06/21/20 21:46 Est GFR ( Amer) 70.7 06/21/20 21:46 Est GFR (Non-Af Amer) 61.0 06/21/20 21:46 BUN/Creatinine Ratio 34.2 (10-20) H 06/21/20 21:46 Glucose 81 mg/dl (70-99) 06/21/20 21:46 Lactate 1.4 mmol/L (0.4-2.0) 06/21/20 21:57 Calcium 8.2 mg/dl (8.5-10.1) L 06/21/20 21:46 Magnesium 2.0 mg/dl (1.8-2.4) 06/21/20 21:46 Total Bilirubin 0.4 mg/dl (0.2-1) 06/21/20 21:46 AST 36 U/L (15-37) 06/21/20 21:46 ALT 32 U/L (12-78) 06/21/20 21:46 Alkaline Phosphatase 100 U/L (45-117) 06/21/20 21:46 Troponin I 3.350 ng/ml (0-0.045) H* 06/21/20 21:46 NT-Pro-B Natriuret Pep 6545 pg/ml (0-900) H 06/21/20 21:46 Total Protein 4.8 gm/dl (6.4-8.2) L 06/21/20 21:46 Albumin 1.9 gm/dl (3.4-5.0) L 06/21/20 21:46 Globulin 2.9 gm/dl (2.5-4.0) 06/21/20 21:46 Albumin/Globulin Ratio 0.7 (0.9-2) L 06/21/20 21:46 TSH 2.160 uIu/ml (0.300-4.500) 06/21/20 21:46 Urine Color Dark Yellow 06/21/20 22:45 Urine Appearance Cloudy (Clear) A 06/21/20 22:45 Urine pH 5.0 (4.5-7.5) 06/21/20 22:45 Ur Specific [place] 1.019 (1.000-1.030) 06/21/20 22:45 Urine Protein Negative (Negative) 06/21/20 22:45 Urine Glucose (UA) Negative (Negative) 06/21/20 22:45 Urine Ketones Trace (Negative) H 06/21/20 22:45 Urine Blood Negative (Negative) 06/21/20 22:45 Urine Nitrite Positive (Negative) A 06/21/20 22:45 Urine Bilirubin Negative (Negative) 06/21/20 22:45 Urine Urobilinogen Negative (Negative) 06/21/20 22:45 Ur Leukocyte Esterase 2+ (Negative) H 06/21/20 22:45 Urine WBC (Auto) 10-30 /hpf (0-5) H 06/21/20 22:45 Urine RBC (Auto) 0-4 /hpf (0-4) 06/21/20 22:45 U Hyaline Cast (Auto) 5-10 /lpf (0-5) H 06/21/20 22:45 U Epithel Cells (Auto) 0-5 /lpf (0-5) 06/21/20 22:45 Urine Bacteria (Auto) 4+ (Negative) H 06/21/20 22:[address] abdomen pelvis initial read: Diverticulosis with mild adjacent fat stranding which could represent diverticulitis. Obstructing left ureteropelvic junction stone measuring up to 13 mm with moderate left hydroureteronephrosis. Streak artifact from right hip prosthesis. Cystitis. Moderate hiatal hernia. Postop changes left femur, ventral abdominal hernia repair. Hyperdensity in the gallbladder may represent sludge or cholelithiasis. Chest x-ray as per my interpretation mild cardiomegaly, no infiltrate RLE venous Dopplers initial read no DVT, mild cellulitis EKG as per my interpretation : Rate 65, NSR, normal axis, septal infarct
[2020-06-22] MEDS ORDERED: PATIENT'S WEIGHT NEEDED STA (00:14)
[2020-06-22] MEDS ORDERED: DAPTOmycin 325 MG in SYRINGE 0 ML IV STA (01:08)
[2020-06-22 01:13] LABS: Hematocrit (blood only) 31.6 % (37-47); Hemoglobin 10.3 g/dL (12.0-16.0)
[2020-06-22] MEDS ORDERED: CEFEPIME CONSULT ACTIVE PRN (02:27)
[2020-06-22] MEDS ORDERED: PROMETHAZINE HCL 12.5 MG in SODIUM CHLORIDE 0.9% 50 ML IV PRN (02:27)
[2020-06-22] MEDS ORDERED: ACETAMINOPHEN 325 MG TAB PO PRN (02:27)
[2020-06-22] MEDS ORDERED: DEXTROSE 50% 50 ML SYRINGE IV PRN (03:56)
[2020-06-22] MEDS ORDERED: CARBOHYDRATES FOR HYPOGLYCEMIA PO PRN (03:56)
[2020-06-22] MEDS ORDERED: GLUCOSE 10 TABS/TUBE PO PRN (03:56)
[2020-06-22] MEDS ORDERED: GLUCOSE 40% GEL 15 GM TUBE PO PRN (03:56)
[2020-06-22] MEDS ORDERED: GLUCAGON FOR INJ 1 MG VIAL SQ PRN (03:56)
[2020-06-22] MEDS: INSULIN ASPART 100 UNITS/ML 3 ML PEN SC SCH ×3 (05:10→17:03)
[2020-06-22 06:09] LABS: Basophils # (auto) 0.01 K/uL (0-0.2); Basophils % (auto) 0.1 %; Eosinophils # (auto) 0.05 K/uL (0-0.5); Eosinophils % (auto) 0.6 %; Hematocrit (blood only) 32.1 % (37-47); Hemoglobin 10.6 g/dL (12.0-16.0); Immature Granulocytes # (auto) 0.01 K/uL (0.00-0.02); Immature Granulocytes % (auto) 0.1 %; Lymphocytes # (auto) 0.42 K/uL (1.2-3.4); Lymphocytes % (auto) 4.7 %; Mean Corpuscular Hemoglobin 31.6 pg (25-34); Mean Corpuscular Volume 95.8 fL (80-100); Mean Platelet Volume 11.2 fL (7.4-10.4); Monocytes # (auto) 0.49 K/uL (0.11-0.59); Monocytes % (auto) 5.5 %; Neutrophils # (auto) 7.95 K/uL (1.4-6.5); Platelet Count 138 K/uL (130-400); RDW Coefficient of Variation 15.1 % (11.5-14.5); RDW Standard Deviation 53.4 fL (36.4-46.3); Red Blood Count 3.35 M/uL (4.2-5.4); White Blood Count 8.93 K/uL (4.8-10.8)
[2020-06-22 06:18] LABS: INR 1.9 (0.9-1.1); Prothrombin Time 19.2 Seconds (9.0-12.0)
--- NOTE | 2020-06-22 06:27 | Ultrasound Report ---
US venous doppler LE RT CLINICAL HISTORY: RLE swelling PAIN. EDEMA. COMPARISON STUDY: No previous studies for comparison. FINDINGS: Real-time and color flow Doppler imaging were performed. Flow was seen within the femoral, popliteal and calf veins with no intraluminal thrombus demonstrated. The saphenous vein is patent. IMPRESSION: No evidence of deep venous thrombosis. ACT 112: Negative or not required by law. The above report was generated using voice recognition software. It may contain grammatical, syntax or spelling errors. Electronically signed by: Michael Min M.D. 06/22/2020 6:26 AM
[2020-06-22 06:40] LABS: BUN Creatinine Ratio 40.3 (10-20); Calcium 7.3 mg/dl (8.5-10.1); Creatinine Clr Calc Pharmacy 89.4 ml/min; Est GFR (African American) 100.1; Est GFR (Non-African American) 86.4; Potassium 3.3 mmol/L (3.5-5.1)
[2020-06-22 06:47] LABS: Troponin I 3.12 ng/ml (0-0.045)
[2020-06-22] MEDS ORDERED: POTASSIUM CHLORIDE 20 MEQ TABCR PO STA (06:58)
[2020-06-22 07:55] LABS: Estimated Average Glucose 100 mg/dl; Hemoglobin A1C 5.1 % (4.5-5.6)
[2020-06-22] MEDS: metroNIDAZOLE 500 MG/100 ML BAG IV SCH ×2 (07:57→15:50)
[2020-06-22] MEDS: PANTOprazole 40 MG TAB PO SCH (07:58)
[2020-06-22] MEDS: BuPROPion SR 100 MG TABCR PO SCH ×2 (07:58→20:05)
[2020-06-22] MEDS: allopurinoL 100 MG TAB PO SCH ×2 (07:58→20:06)
[2020-06-22] MEDS: OXYBUTYNIN CHLORIDE 5 MG TAB PO SCH ×2 (07:58→20:06)
[2020-06-22] MEDS: FLINTSTONES COMPLETE CHEWABLE TAB PO SCH ×2 (07:58→20:06)
--- NOTE | 2020-06-22 08:02 | XRay Report ---
XR knee RT 4V HISTORY: 74 years-old Female pain acute right knee pain COMPARISON: None TECHNIQUE: 4 views of the right knee FINDINGS: Moderate lateral compartment with severe medial and patellofemoral compartment osteoarthritis. Small joint effusion. Arterial calcifications. No acute fracture or dislocation. Probable chondrocalcinosis . Diffuse soft tissue prominence. IMPRESSION: 1. Tricompartmental osteoarthritis and chondrocalcinosis without acute fracture or dislocation. 2. Small joint effusion. ACT 112: Negative or not required by law. The above report was generated using voice recognition software. It may contain grammatical, syntax o r spelling errors. Electronically signed by: Ezequiel Denise M.D. 06/22/2020 8:01 AM
--- NOTE | 2020-06-22 08:06 | CT Scan Report ---
CT SCAN OF THE ABDOMEN AND PELVIS WITHOUT IV CONTRAST CLINICAL HISTORY: Diarrhea. Chills. COMPARISON STUDY: Abdominal CT dated 02/19/2010. TECHNIQUE: CT scan of the abdomen and pelvis is performed from the lung bases to the proximal femora. Images are reviewed in the axial, sagittal, and coronal planes. IV contrast was not administered for this examination as per the referring clinician. A dose lowering technique was utilized adhering to the principles of ALARA. CT DOSE: 1444.61 mGy.cm FINDINGS: Lung bases: The heart is normal in size and without pericardial effusion. The mitral annulus is dense ly calcified. There is a small to moderate hiatal hernia. There is trace left pleural effusion and de pendent atelectasis. Liver: The unenhanced liver is normal in size, contour, and attenuation. There is no intrahepatic jayda iary ductal dilatation. Gallbladder: There are numerous small calcified gallstones with no CT evidence of acute cholecystitis . Spleen: Normal in size and attenuation. A 1.7 cm splenic hypodensity seen on image #61 and is of doub tful significance. Pancreas: The unenhanced pancreas is atrophic and grossly unremarkable. Adrenal glands: Bilateral adrenal adenomas measure up to 2.2 cm. Kidneys: The unenhanced kidneys are atrophic. There is an 18 mm obstructing calculus in the left prox imal ureter at the level of L4. This is seen on axial image #194 and causes moderate left-sided hydro ureteronephrosis. No additional calculi are identified in either kidney. There is no right-sided hydr onephrosis. A 1.8 cm cyst arises from the interpolar left kidney. Abdominal vasculature: The abdominal aorta is normal in course and caliber noting advanced atheroscle rotic calcification. An IVC filter is in place. Bowel: Postoperative change is noted involving the stomach. There is also postoperative change from l eft colonic resection. A small bowel anastomosis is noted in the left lower quadrant. There is mild d iverticulosis of the remaining colon without CT evidence of acute diverticulitis. There is no bowel o bstruction. The appendix is not visualized. Peritoneum: There is no intraperitoneal free air or abdominal ascites. Postoperative change is noted in the ventral abdominal wall. Lymphadenopathy: None. Pelvic viscera: Evaluation of the pelvis is degraded by streak artifact from a right hip arthroplasty . The bladder wall is thickened and trabeculated. There are numerous small bladder diverticula. Mild pericystic stranding is noted. The uterus and adnexa are normal as imaged. Skeletal structures: The skeletal structures are osteopenic. There is advanced lumbosacral spondylosi s and mild scoliosis. No lytic or blastic lesions are seen. A right hip arthroplasty is in place. The re are healed left-sided rib fractures. There is advanced chronic deformity of the left hip with dest ruction of the left femoral head and surrounding bursal fluid. There is dorsal dislocation of the pro ximal femur. Soft tissues: There is body wall edema. IMPRESSION: 1. There is an 18 mm obstructing calculus in the left proximal ureter. This causes moderate left-side d hydroureteronephrosis. 2. No additional calculi are identified in either kidney. 3. Postoperative change is noted involving the stomach, colon, and small bowel. There is no bowel obs truction. 4. Chronic destructive change and deformity/dislocation is seen in the left hip. 5. Cholelithiasis. 6. The bladder wall is thickened and trabeculated and there are numerous small bladder diverticula. T he appearance suggests neurogenic bladder or chronic outlet obstruction. There is mild pericystic str anding. Correlate clinically and with urinalysis for evidence of superimposed cystitis. 7. Additional findings as above. ACT 112: Negative or not required by law. Electronically signed by: Srinivasan Finn M.D. 06/22/2020 8:04 AM
--- NOTE | 2020-06-22 08:17 | XRay Report ---
XR chest 1V portable HISTORY: 74 years-old Female weakness acute weakness COMPARISON: Chest radiograph 01/27/2012 TECHNIQUE: Portable AP view of the chest FINDINGS: Cardiac silhouette is mildly enlarged. Chronic interstitial coarsening of the lung bases. Calcified p laque of the thoracic aortic arch. No pneumothorax, pleural effusion, overt pulmonary edema or airspa ce consolidation typical for pneumonia. Sigmoidal thoracolumbar scoliosis. Severe osteoarthritis of t he right glenohumeral joint with loose bodies of the subscapularis and axillary recesses. Reverse lef t shoulder total joint arthroplasty. Remote left clavicular fracture deformity. Hiatal hernia. IMPRESSION: No acute process. ACT 112: Negative or not required by law. The above report was generated using voice recognition software. It may contain grammatical, syntax o r spelling errors. Electronically signed by: Ezequiel Denise M.D. 06/22/2020 8:15 AM
--- NOTE | 2020-06-22 08:42 | Urology Consultation ---
Date of Consultation June 22, 2020 Assessment & Plan (1) Left ureteral calculus: (2) Hydronephrosis, left: 74yo F with a complex medical history with an 18mm left proximal ureteral stone with moderate left hydronephrosis -Reviewed plan of care with Dr. Castellanos -Patient doing well -She remains afebrile, WBC and Cr are stable -Urine and blood cultures are pending, continue broad spectrum antibiotics -Given she is awaiting work-up for other acute findings, no emergent intervention planned today -Continue to monitor status, Make NPO at midnight to reassess in the morning -Please consult our service urgently if patient develops fever >101F, intractable pain or nausea, as this will necessitate urgent surgical intervention. Thank you for the consultation and we will continue to monitor closely with primary service. History of Present Illness Reason for Consultation: Obstructive Uropathy Attending Physician: Hermelindo Dyer MD History of Present Illness Patient is a 74yo F with a complex medical history including Factor V Leiden, uterine ca s/p radiation, Afib, and COPD who presented to the ER on 06/21/20 with c/o lower abdominal discomfort, diarrhea, and chills. Chart Review: -Afebrile -WBC (06/22)- 8.93 -Cr (06/22)- 0.69 -HgB (06/22)- 10.6 -UA- 4+Bacteria, 10-30WBC, 2+Leuks, Positive Nitrites, trace ketones -Urine and blood cultures - pending -Currently on Daptomycin, Cefepime, and Flagyl for suspected Diverticulitis/UTI -CT Abd/Pelvis - An 18 mm obstructing calculus in the left proximal ureter with moderate left-sided hydroureteronephrosis; No additional calculi are identified in either kidney; The bladder wall is thickened and trabeculated and there are numerous small bladder diverticula. The appearance suggests neurogenic bladder or chronic outlet obstruction. There is mild pericystic stranding. Patient was examined at the bedside today. She reports a significant improvement in symptoms since yesterday. She denies any back, flank, or abdominal pain. Denies fevers or chills. No nausea or vomiting. She has been NPO since midnight. At present, she denies gross hematuria or dysuria. Patient denies any additional urinary symptoms. She has not been seen by our service in the past. She denies a prior history of stones. She reports a history of microscopic hematuria and recurrent UTIs. No additional Urological concerns today Allergies Allergy/AdvReac Type Severity Reaction Status Date / Time adhesive Allergy Intermediate BLISTERS Verified 06/21/20 22:26 WITH STERI-STRIPS Iodinated Contrast Media Allergy Intermediate hive Verified 06/21/20 22:26 [Iodinated Contrast- Oral and IV Dye] naproxen Allergy Intermediate SWELLING - Verified 06/21/20 22:26 TOLERATES ESTEVES-[address] HALL ciprofloxacin Allergy Mild RASH Verified 06/21/20 22:26 Quinolones Allergy Mild NEUROLOGIC Verified 06/21/20 22:26 SYMPTOMS Cipro Allergy Unknown RASH Verified 02/05/17 10:40 Home Medications Home Medications Medication Instructions Recorded Confirmed Type allopurinol 100 mg PO BID 06/23/19 06/21/20 History ascorbic acid (vitamin C) [Vitamin 250 mg PO BID 06/23/19 06/21/20 History C] buspirone 5 mg PO TID 06/23/19 06/21/20 History cyanocobalamin (vitamin B-12) 1,000 mcg IM UD 06/23/19 06/21/20 History duloxetine [Cymbalta] 40 mg PO HS 06/23/19 06/21/20 History ondansetron 4 mg PO Q8H PRN 06/23/19 06/21/20 History oxycodone [Roxicodone] 5 mg PO Q4 PRN 06/23/19 06/21/20 History Flintstones Complete 1 tab PO BID 08/27/19 06/21/20 History docusate sodium 100 mg capsule 100 mg PO BID PRN 08/30/19 06/21/20 History acetaminophen 650 mg PO Q4 PRN 12/31/19 06/21/20 History atorvastatin 40 mg PO PM 12/31/19 06/21/20 History bupropion HCl 200 mg PO BID 12/31/19 06/21/20 History calcium carbonate [Tums Extra 750 mg PO UD PRN 12/31/19 06/21/20 History Strength Smoothies] calcium carbonate-vitamin D3 1 cap PO BID 12/31/19 06/21/20 History [Calcium 600 with Vitamin D3] carvedilol 3.125 mg PO BID 12/31/19 06/21/20 History cholecalciferol (vitamin D3) 2,000 unit PO QAM 12/31/19 06/21/20 History [Vitamin D3] furosemide 20 mg PO QAM 12/31/19 06/21/20 History nystatin 1 appln TOP BID PRN 12/31/19 06/21/20 History omeprazole 20 mg PO QAM 12/31/19 06/21/20 History oxybutynin chloride 5 mg PO BID 12/31/19 06/21/20 History spironolactone 25 mg PO QAM 12/31/19 06/21/20 History valsartan 320 mg PO QAM 12/31/19 06/21/20 History diphenoxylate-atropine [Lomotil] 0 tab PO Q6H PRN MDD 8 tablets (04/08/20 06/21/20 History mg) lactobacillus combination no.4 3,000 mmu cells PO DAILY 06/21/20 06/21/20 History [Probiotic] potassium chloride [K-Tab] 20 meq PO DAILY 06/21/20 06/21/20 History warfarin 2 mg PO .Q TUES & FRI 06/21/20 06/21/20 History warfarin 4 mg PO 5XWK 06/21/20 06/21/20 History Patient History Medical History Aortic valve defect pt states she will be needing a valve sx (not scheduled yet) Atrial fibrillation follows with Dr. Bui Chronic back pain Degenerative disc disease Diverticular disease Dyslipidemia Factor 5 Leiden mutation, heterozygous Gastric reflux GERD (gastroesophageal reflux disease) Gout History of anxiety History of blood clots 2002 ? began in left leg and moved to both lungs d/t Factor V History of cellulitis both legs History of COPD mild--inhaler/nebulizer prn History of depression History of esophageal disorder esophageal diverticulum History of obstructive sleep apnea pt wears CPAP History of peripheral neuropathy bilateral feet History of stress incontinence Hx of cancer of uterus diagnosed 03/2019---radiation only Hx of cardiac murmur Hx of carotid artery stenosis left Hx of iron deficiency anemia Hypertension Hyperuricemia Intestinal disorder post op malabsorption On anticoagulant therapy warfarin daily Osteoarthritis Pes planus Post traumatic stress disorder Pulmonary embolism hx of bilateral 2003? Spinal stenosis Stroke 06/03/2019 after I&D left hip--vision loss in left eye--no neurologist Vision abnormalities r peripheral vision loss( posterior ischemic optic neuropathyleft eye), left side altered vision like looking through a screen door Wheelchair dependence Surgical History History of arthroplasty of left hip 2006 @ [facility]--infected after, multiple sx's History of biopsy of bladder benign History of colonoscopy with polypectomy History of incision and drainage 05/2019 of left hip---wound vac placed (currently still on as of 12/31/2019) [place] [facility] [place] of left shoulder replacement History of right hip replacement 2005 @ [facility] History of tonsillectomy and adenoidectomy History of tooth extraction Hx of gastric bypass Hx of tubal ligation Hx of umbilical hernia repair mesh inserted S/P colon resection 1984 @ [facility] complete sigmoid removed d/t diverticular disease Family History Mother , age 91 Heart disease Family hx colonic polyps Father , age 42 Factor V deficiency Myocardial infarction Sister No problems noted. Sister Endometrial cancer Brother Family hx colonic polyps Brother , age 50 Meningitis Brother No problems noted. Brother No problems noted. Son No problems noted. Son No problems noted. Son Colon abnormality Son , in his 30 `s , " girl friend over dosed the patients son " Drug overdose Grandfather (Paternal) Family history of diabetes mellitus Other No family history of adverse response to anesthesia Social History Smoking Status: Former smoker Age Started Using Tobacco: 22; packs per day: 0.5; Cigarettes Per Day: 10; Smoking End Date: 1998; Second Hand Exposure: Yes (parents smoked/ smoked); Hx Alcohol Use: No Hx Substance Use: No Preferred Language: Turkish Communication Ability: Effective Visual Impairment: Limited Hearing Ability: Normal [employer] Required: No Beliefs That Will Affect Care: None marital status: / Current Living Situation: Family Current Living Situation Comment: lives with son (laurent) current occupational status: retired 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 Other Information That Helps Us Care for You: No Feels Safe at Home: Yes Safety Concerns: Feels Safe At This Time Review of Systems Review of Systems: All systems reviewed & are unremarkable except as noted in HPI & below Physical Exam Constitutional: well developed, well nourished and + obese; no acute distress Eyes: no eyelid abnormality ENMT: Ears: no external ear abnormality Neck: normal visual inspection; no anterior neck swelling Respiratory: normal respiratory effort and able to speak in complete sentences Cardiovascular: Rate/Rhythm: regular rate and regular rhythm Extremities: + edema (2+BLE) Gastrointestinal (Abdomen): Inspection/Auscultation: abdomen normal to inspection; abdomen not distended Percussion/Palpation: abdomen soft; abdomen nontender and no guarding Musculoskeletal: Head/Neck/Chest: normocephalic and head atraumatic Skin: no rashes, warm and dry normal color to visualized skin areas Neurologic: awake; not confused Psychiatric: Orientation: alert, oriented x 3 and cooperative Genitourinary: no CVA tenderness Results & Data ([facility]) Vital Signs (Past 12 Hours) Vital Signs Temp Pulse Pulse Resp BP BP BP 06/22/20 07:16 36.5 C 64 19 107/63 06/22/20 03:00 65 16 06/22/20 02:38 71 06/22/20 01:50 36.7 C 66 20 94/54 L 06/22/20 01:03 60 18 99/54 L 06/21/20 23:22 77 18 98/61 L 06/21/20 22:02 06/21/20 21:55 62 18 104/53 L Pulse Ox 06/22/20 07:16 98 06/22/20 03:00 97 06/22/20 02:38 06/22/20 01:50 99 06/22/20 01:03 96 06/21/20 23:22 97 06/21/20 22:02 96 06/21/20 21:55 98 PG Care Time/CCT Total # of Minutes Spent Total Time Spent with Patient: Total time spent is greater than 50% in coordination of care (as documented) at patient's floor/unit and/or counseling patient: Coding Level of Care Code 90359 Initial Inpt Care Lvl 3 Diagnoses Left ureteral calculus N20.1 Hydronephrosis, left N13.30
[2020-06-22] MEDS: OXYCODONE HCL IR 5 MG TAB (IMMEDIATE RELEASE) PO PRN ×2 (10:17→20:40)
[2020-06-22] MEDS: CEFEPIME 2,000 MG in SYRINGE 7.5 ML IV SCH ×2 (10:48→22:04)
--- NOTE | 2020-06-22 12:46 | Hospitalist Progress Note ---
Date of Service June 22, 2020 Assessment & Plan (1) Left ureteral calculus: (2) Hydronephrosis, left: Present on admission with abdominal pain and diarrhea CT abd/pelvis showed 18 mm obstructing calculus in the left proximal ureter. This causes moderate left-sided hydroureteronephrosis. Urology on board No emergent intervention plan by urology today If pt develops any fever, intractable pain or nausea, will require urgent intervention procedure Will make NPO after midnight (3) Acute UTI: Sepsis r/o since pt is afebrile, no tachycardia with normal respiratory rate UA positive for leukocytes and nitrites and bacteria Received IV Rocephin in the ER Continue Cefepime currently Urine cx and blood cx pending Consider to D/C dapto if blood cx negative Continue monitor closely (4) Non-ST elevation IN (NSTEMI): Mostly related to acute illness Troponin on admission 3.35, then slightly decreased to 3.15 -->3.12 EKG showed no acute ischemic changes Cardiology on board Echo showed moderate concentric left ventricular hypertrophy. There was focal ballooning severe hypokinesis of the apex with ejection fraction 45 to 50%. Severe calcific aortic valve stenosis. Moderate to severe mitral annular calcification. No aspirin due to GI bleed INR 1.9 today Continue statin and carvedilol GI bleed Abdominal pain Diarrhea CT abd/pelvis showed mild diverticulosis of the remaining colon without CT evidence of acute diverticulitis. There is no bowel obstruction. Stools for Cdiff did not collect yet since diarrhea improves Continue Cefepime and Flagyl Starting on clear liquid diet Coumadin on hold due to GI bleed Hgb stable at 10.7 Continue monitor H/H Factor V Leiden mutation Hx DVT and PE S/P IVC filter Coumadin on hold due to GI bleed as pt reported INR 1.9 today If hgb stable and no GI bleeding, will consider to resume anticoagulant soon HTN BP in the low side Continue to hold spironolactone, furosemide and Valsartan Continue monitor BP closely Right Lower extremity swelling/Erythema Doppler of LE extremity showed no evidence of DVT Continue monitor Anxiety Continue Bupropion Will add a low dose of Ativan since her anxiety worsening by being in the hospital DVT px coumadin on hold due to GI bleed INR 1.9 today Will add SCDs CODE STATUS FULL CODE Admission and Anticipated Discharge Date Admission Date: June 21, 2020 Subjective Pt was seen and examined Lying in bed with no distress Pt said that her abdominal pain slightly improves She said that her last episode of diarrhea was around 2AM She said that she feels very anxious by being in the hospital Denies any chest pain, palpitation, N/V and SOB Physical Exam Physical Exam: General- No acute distress Head- atraumatic Eyes- PERRL, EOMI, ENT- oropharynx clear Neck- supple, no JVD Lungs- diminished BS Heart- regular rhythm; +systolic murmur Abdomen- normal bowel sounds, soft Extremities- no calf tenderness, +edema Neuro- alert, oriented x 3; PERRL, EOMI; no facial palsy; no dysarthria Skin- warm & dry Results & Data Results & Data ([facility]) Vital Signs (Past 12 Hours) Vital Signs Temp Pulse Pulse Resp BP BP BP 06/22/20 11:29 36.8 C 70 19 94/50 L 06/22/20 07:16 36.5 C 64 19 107/63 06/22/20 03:00 65 16 06/22/20 02:38 71 06/22/20 01:50 36.7 C 66 20 94/54 L 06/22/20 01:03 60 18 99/54 L Pulse Ox 06/22/20 11:29 98 06/22/20 07:16 98 06/22/20 03:00 97 06/22/20 02:38 06/22/20 01:50 99 06/22/20 01:03 96
[2020-06-22 13:14] LABS: Hematocrit (blood only) 33.8 % (37-47); Hemoglobin 10.7 g/dL (12.0-16.0)
--- NOTE | 2020-06-22 15:23 | Cardiology Consultation ---
Date of Consultation June 22, 2020 Assessment & Plan (1) Sepsis: Patient is a 74-year-old female with multiple underlying medical issues as well outlined above presents with 2-day history of chills and rigor, diarrhea abdominal pain with possible sepsis. Imaging studies demonstrating ureteral stone. Past history notable for significant infections underlying severe aortic stenosis. Troponins as noted are elevated but flat EKG suggests septal infarct echocardiogram reveals apical ballooning wall motion abnormality question ischemic versus stress mediated Patient already anticoagulated orally Plan: Continue to follow closely, restarting beta-sheryl using metoprolol succinate to allow slightly higher blood pressure than carvedilol Continue to hold valsartan and diuretics Follow infectious process closely given underlying valvular heart disease. Echocardiogram insufficient to exclude vegetation. multiple other infectious sources present. Blood cultures pending (2) Diarrhea: (3) Elevated troponin: (4) Aortic stenosis, severe: (5) Factor V Leiden mutation: History of Present Illness Reason for Consultation: Elevated troponin, acute febrile illness Requesting Physician: Dr. Dyer Attending Physician: Hermelindo Dyer MD History of Present Illness Patient is a 74-year-old female weighing cardiac and medical issues include 1. Longstanding hypertension with hypertensive heart disease and past diastolic heart failure 2. Calcific aortic valve disease approaching severe 3. Factor V Leiden mutation with past DVT/thromboembolic disease with indwelling [place] filter and chronic anticoagulation with warfarin 4. Obstructive sleep apnea 5. Morbid obesity status post gastric bypass surgery 2016 6. Chronic obstructive lung disease 7. Left carotid artery stenosis, moderate 8. Diabetes mellitus 9. Prior left prosthetic hip joint infection November 2011 Patient presents this admission noting approximately 2-day history of not abdominal discomfort malaise chills with rigor, diarrhea possible bloody stools. Patient noted minimal dysuria and increased urinary frequent. No chest pains no tachypalpitations no syncope. No nausea or vomiting. No overt bleeding issues though stools possibly bloody. No headache or visual changes no rash arthritic complaints though right leg warm and knee tender. No acute changes in medications. Compliant with therapies. No acute weight loss or gain Allergies Allergy/AdvReac Type Severity Reaction Status Date / Time adhesive Allergy Intermediate BLISTERS Verified 06/21/20 22:26 WITH STERI-STRIPS Iodinated Contrast Media Allergy Intermediate hive Verified 06/21/20 22:26 [Iodinated Contrast- Oral and IV Dye] naproxen Allergy Intermediate SWELLING - Verified 06/21/20 22:26 TOLERATES ESTEVES-[address] HALL ciprofloxacin Allergy Mild RASH Verified 06/21/20 22:26 Quinolones Allergy Mild NEUROLOGIC Verified 06/21/20 22:26 SYMPTOMS Cipro Allergy Unknown RASH Verified 02/05/17 10:40 Home Medications Home Medications Medication Instructions Recorded Confirmed Type allopurinol 100 mg PO BID 06/23/19 06/21/20 History ascorbic acid (vitamin C) [Vitamin 250 mg PO BID 06/23/19 06/21/20 History C] buspirone 5 mg PO TID 06/23/19 06/21/20 History cyanocobalamin (vitamin B-12) 1,000 mcg IM UD 06/23/19 06/21/20 History duloxetine [Cymbalta] 40 mg PO HS 06/23/19 06/21/20 History ondansetron 4 mg PO Q8H PRN 06/23/19 06/21/20 History oxycodone [Roxicodone] 5 mg PO Q4 PRN 06/23/19 06/21/20 History Flintstones Complete 1 tab PO BID 08/27/19 06/21/20 History docusate sodium 100 mg capsule 100 mg PO BID PRN 08/30/19 06/21/20 History acetaminophen 650 mg PO Q4 PRN 12/31/19 06/21/20 History atorvastatin 40 mg PO PM 12/31/19 06/21/20 History bupropion HCl 200 mg PO BID 12/31/19 06/21/20 History calcium carbonate [Tums Extra 750 mg PO UD PRN 12/31/19 06/21/20 History Strength Smoothies] calcium carbonate-vitamin D3 1 cap PO BID 12/31/19 06/21/20 History [Calcium 600 with Vitamin D3] carvedilol 3.125 mg PO BID 12/31/19 06/21/20 History cholecalciferol (vitamin D3) 2,000 unit PO QAM 12/31/19 06/21/20 History [Vitamin D3] furosemide 20 mg PO QAM 12/31/19 06/21/20 History nystatin 1 appln TOP BID PRN 12/31/19 06/21/20 History omeprazole 20 mg PO QAM 12/31/19 06/21/20 History oxybutynin chloride 5 mg PO BID 12/31/19 06/21/20 History spironolactone 25 mg PO QAM 12/31/19 06/21/20 History valsartan 320 mg PO QAM 12/31/19 06/21/20 History diphenoxylate-atropine [Lomotil] 0 tab PO Q6H PRN MDD 8 tablets (20 04/08/20 06/21/20 History mg) lactobacillus combination no.4 3,000 mmu cells PO DAILY 06/21/20 06/21/20 History [Probiotic] potassium chloride [K-Tab] 20 meq PO DAILY 06/21/20 06/21/20 History warfarin 2 mg PO .Q TUES & Fri06/21/20 06/21/20 History warfarin 4 mg PO 5XWK 06/21/20 06/21/20 History Patient History Medical History Aortic valve defect pt states she will be needing a valve sx (not scheduled yet) Atrial fibrillation follows with Dr. Bui Chronic back pain Degenerative disc disease Diverticular disease Dyslipidemia Factor 5 Leiden mutation, heterozygous Gastric reflux GERD (gastroesophageal reflux disease) Gout History of anxiety History of blood clots 2002 ? began in left leg and moved to both lungs d/t Factor V History of cellulitis both legs History of COPD mild--inhaler/nebulizer prn History of depression History of esophageal disorder esophageal diverticulum History of obstructive sleep apnea pt wears CPAP History of peripheral neuropathy bilateral feet History of stress incontinence Hx of cancer of uterus diagnosed 03/2019---radiation only Hx of cardiac murmur Hx of carotid artery stenosis left Hx of iron deficiency anemia Hypertension Hyperuricemia Intestinal disorder post op malabsorption On anticoagulant therapy warfarin daily Osteoarthritis Pes planus Post traumatic stress disorder Pulmonary embolism hx of bilateral 2003? Spinal stenosis Stroke 06/03/2019 after I&D left hip--vision loss in left eye--no neurologist Vision abnormalities r peripheral vision loss( posterior ischemic optic neuropathyleft eye), left side altered vision like looking through a screen door Wheelchair dependence Surgical History History of arthroplasty of left hip 2006 @ [facility]--infected after, multiple sx's History of biopsy of bladder benign History of colonoscopy with polypectomy History of incision and drainage 05/2019 of left hip---wound vac placed (currently still on as of 12/31/2019) History of left hip replacement 03/2019 @ [facility] [place] History of left shoulder replacement History of right hip replacement 2005 @ [facility] History of tonsillectomy and adenoidectomy History of tooth extraction Hx of gastric bypass Hx of tubal ligation Hx of umbilical hernia repair mesh inserted S/P colon resection 1984 @ [facility] complete sigmoid removed d/t diverticular disease Family History Mother , age 91 Heart disease Family hx colonic polyps Father , age 42 Factor V deficiency Myocardial infarction Sister No problems noted. Sister Endometrial cancer Brother Family hx colonic polyps Brother , age 50 Meningitis Brother No problems noted. Brother No problems noted. Son No problems noted. Son No problems noted. Son Colon abnormality Son , in his 30 `s , " girl friend over dosed the patients son " Drug overdose Grandfather (Paternal) Family history of diabetes mellitus Other No family history of adverse response to anesthesia Social History Smoking Status: Former smoker Age Started Using Tobacco: 22; packs per day: 0.5; Cigarettes Per Day: 10; Smoking End Date: 1998; Second Hand Exposure: Yes (parents smoked/ smoked); Hx Alcohol Use: No Hx Substance Use: No Preferred Language: Venezuelan Communication Ability: Effective Visual Impairment: Limited Hearing Ability: Normal Toppiece Cutter Required: No Beliefs That Will Affect Care: None marital status: / Current Living Situation: Family Current Living Situation Comment: lives with son giovanny) current occupational status: retired 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
[2020-06-22] MEDS: METOPROLOL SUCC 25MG EXT REL TAB PO SCH (17:03)
[2020-06-22] MEDS ORDERED: DAPTOmycin 325 MG in SYRINGE 0 ML IV SCH (20:00)
[2020-06-22] MEDS: DULOXETINE HCL 20 MG CAP PO SCH (20:06)
[2020-06-22] MEDS ORDERED: Nursing to Pharmacy Communication SCH (22:00)
--- NOTE | 2020-06-22 22:05 | Urology Progress Note ---
Date of Service June 22, 2020 Assessment & Plan Admission and Anticipated Discharge Date Admission Date: June 21, 2020 Subjective Checked on patient at approximately 9:30 PM She is awake and alert She has no flank pain Her only complaint is some low back pain and she tells me she has had that for years secondary to arthritis No nausea or vomiting Temp is 36.8 pulse 71 respiratory rate 20 O2 sat 95 Blood pressure is 94/59 which she says is a little bit low for her she tells me she usually runs about 120/80 Her cardiac work-up is in progress He did have positive blood cultures Urine cultures are pending Assessment 1 left Ureteral calculus Patient will need stent placed at some point Need cardiac clearance for anesthesia Due to elevated troponin and question of NH She does not appear septic at this point so emergent stent placement is not necessary if she would develop a fever or shaking chills or signs of sepsis the stent needs to be placed emergently. Results & Data ([facility]) Vital Signs (Past 12 Hours) Vital Signs Temp Pulse Pulse Resp BP Pulse Ox 06/22/20 20:02 36.8 C 71 20 94/59 L 95 06/22/20 14:59 36.7 C 70 16 98/58 L 96 06/22/20 11:29 36.8 C 70 19 94/50 L 98 PG Care Time/CCT Total # of Minutes Spent Total Time Spent with Patient: Total time spent is greater than 50% in coordination of care (as documented) at patient's floor/unit and/or counseling patient: Coding Level of Care Code None
[2020-06-23] MEDS: metroNIDAZOLE 500 MG/100 ML BAG IV SCH ×3 (00:01→17:58)
--- NOTE | 2020-06-23 06:06 | Electrocardiogram Report ---
Test Reason : Blood Pressure : / mmHG Vent. Rate : 064 BPM Atrial Rate : 064 BPM P-R Int : 160 ms QRS Dur : 096 ms QT Int : 428 ms P-R-T Axes : 064 014 020 degrees QTc Int : 441 ms Normal sinus rhythm Septal infarct (cited on or before 08-APR-2020) Abnormal ECG When compared with ECG of 08-APR-2020 13:17, No significant change was found Confirmed by Harrison Ware ([id number]) on 06/23/2020 6:06:25 AM Referred By: REFERRED SELF Confirmed By:Harrison Ware
[2020-06-23 06:16] LABS: Hemoglobin 10.8 g/dL (12.0-16.0); Mean Corpuscular Hemoglobin 32.2 pg (25-34); Mean Corpuscular Hgb Conc 33.8 g/dL (32-36); Mean Corpuscular Volume 95.5 fL (80-100); Platelet Count 137 K/uL (130-400); RDW Coefficient of Variation 15.1 % (11.5-14.5); RDW Standard Deviation 52.4 fL (36.4-46.3); Red Blood Count 3.35 M/uL (4.2-5.4); White Blood Count 6.12 K/uL (4.8-10.8)
[2020-06-23 06:27] LABS: INR 1.6 (0.9-1.1); Prothrombin Time 16.4 Seconds (9.0-12.0)
[2020-06-23] MEDS: BuPROPion SR 100 MG TABCR PO SCH ×2 (06:31→14:31)
[2020-06-23 07:10] LABS: BUN Creatinine Ratio 28.8 (10-20); Calcium 8.2 mg/dl (8.5-10.1); Creatinine Clr Calc Pharmacy 88.8 ml/min; Est GFR (African American) 100.1; Est GFR (Non-African American) 86.4; Potassium 3.9 mmol/L (3.5-5.1)
[2020-06-23] MEDS: INSULIN ASPART 100 UNITS/ML 3 ML PEN SC SCH ×2 (07:58→12:26)
[2020-06-23] MEDS: FLINTSTONES COMPLETE CHEWABLE TAB PO SCH ×2 (08:10→21:41)
[2020-06-23] MEDS: PANTOprazole 40 MG TAB PO SCH (08:11)
[2020-06-23] MEDS: allopurinoL 100 MG TAB PO SCH ×2 (08:11→21:40)
[2020-06-23] MEDS: OXYBUTYNIN CHLORIDE 5 MG TAB PO SCH ×2 (08:11→21:40)
[2020-06-23] MEDS: METOPROLOL SUCC 25MG EXT REL TAB PO SCH ×2 (08:15→18:04)
[2020-06-23] MEDS: CEFEPIME 2,000 MG in SYRINGE 7.5 ML IV SCH ×2 (10:10→21:41)
--- NOTE | 2020-06-23 10:33 | Urology Progress Note ---
Date of Service June 23, 2020 Assessment & Plan (1) Left ureteral calculus: (2) Hydronephrosis, left: 74yo F with a complex medical history with an 18mm left proximal ureteral stone with moderate left hydronephrosis -Patient remains afebrile, WBC and Cr are stable -Urine and blood cultures prelim - gram negative bacilli - continue broad- spectrum antibiotics while awaiting final culture sensitivities -Keep NPO -Findings reviewed with Dr. Pabon. Given her hydronephrosis and preliminary positive urine culture in the context of an obstructing 18mm left proximal ureteral stone, will proceed with OR for cysto, Left retrograde pyelogram and Left stent placement. Risks and benefits to be reviewed with patient by Dr. Pabon. OR notified. Preoperative CXR and EKG completed while inpatient. Patient currently on IV Flagyl and Cefepime. Admission and Anticipated Discharge Date Admission Date: June 21, 2020 Subjective 74yo F with a complex medical history with an 18mm left proximal ureteral stone with moderate left hydronephrosis Patient doing well overall, resting in bed Denies fevers or chills Denies back, flank, and suprapubic pain Tolerated clear liquids for breakfast without nausea or vomiting Denies gross hematuria and dysuria Urine and blood cultures still pending - receiving IV Flagyl and Cefepime No additional Urological concerns today Review of Systems Constitutional: as per Subjective / HPI Gastrointestinal: as per Subjective / HPI Genitourinary: as per Subjective / HPI Physical Exam Constitutional: well developed, well nourished and + obese; no acute distress and not ill appearing Eyes: no eyelid abnormality ENMT: Ears: no external ear abnormality Neck: normal visual inspection; no anterior neck swelling Respiratory: normal respiratory effort and able to speak in complete sentences Cardiovascular: Rate/Rhythm: regular rate and regular rhythm Extremities: + edema (2+BLE) Gastrointestinal (Abdomen): Percussion/Palpation: abdomen soft; abdomen nontender and no guarding Musculoskeletal: Head/Neck/Chest: normocephalic and head atraumatic Skin: no rashes, warm and dry normal color to visualized skin areas Neurologic: awake; not confused Psychiatric: Orientation: alert, oriented x 3 and cooperative Genitourinary: no CVA tenderness Results & Data ([facility]) Vital Signs (Past 12 Hours) Vital Signs Temp Pulse Pulse Resp BP BP Pulse Ox 08/14/20 07:19 36.7 C 71 19 100/59 L 96 06/23/20 03:12 36.8 C 60 18 95/60 L 95 06/22/20 23:20 62 12 96 06/22/20 23:07 36.8 C 87 19 106/67 94 PG Care Time/CCT Total # of Minutes Spent Total Time Spent with Patient: Total time spent is greater than 50% in coordination of care (as documented) at patient's floor/unit and/or counseling patient: Coding Level of Care Code 07039 Subseq Hosp Care Lvl 2 Diagnoses Left ureteral calculus N20.1 Hydronephrosis, left N13.30
--- NOTE | 2020-06-23 10:46 | Cardiology Progress Note ---
Date of Service June 23, 2020 Assessment & Plan (1) Sepsis: Patient is a 74-year-old female with multiple underlying medical issues as well outlined above presents with 2-day history of chills and rigor, diarrhea abdominal pain with possible sepsis. Imaging studies demonstrating ureteral stone. Past history notable for significant infections underlying severe aortic stenosis. Troponins as noted are elevated but flat, EKG suggests septal infarct however echocardiogram reveals apical ballooning wall motion abnormality question ischemic versus likely stress mediated Patient already anticoagulated orally Urine and blood cultures now growing gram-negative bacilli, CT scan with obstru ctive uropathy Plan: Agree with urology proceeding with ureteral stent. Continue beta-sheryl, holding diuretics and valsartan Treat underlying infectious process. Will likely require RAHUL to aid in determining length of course. 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 Patient on appropriate beta-sheryl therapy (3) Diarrhea: (4) Elevated troponin: (5) Aortic stenosis, severe: (6) Factor V Leiden mutation: Admission and Anticipated Discharge Date Admission Date: June 21, 2020 Subjective Patient was seen and examined, chart, medications, telemetry reviewed. Feeling substantially improved overnight. No further fever or chills. No chest pain or discomfort no worsening shortness of breath no tachypalpitations. No dizziness or lightheadedness. Review of Systems Review of Systems: All systems reviewed & are unremarkable except as noted in HPI & below Physical Exam Constitutional: + morbidly obese Eyes: PERRL, conjunctivae normal, anicteric sclerae ENMT: external ear and nose normal, oropharynx normal Neck: trachea midline, no thyromegaly Respiratory: normal respiratory effort, lungs clear to auscultation Cardiovascular: Rate/Rhythm: regular rate and regular rhythm Heart Sounds: normal S1 and + murmur (Harsh grade 3/6 systolic murmur heard throughout the precordium); + abnormal S2 (Diminished) and no gallop Palpation: no heave Vessels: no JVD Extremities: no edema Gastrointestinal (Abdomen): normal bowel sounds, soft, nontender, no hepatosplenomegaly Musculoskeletal: no cyanosis or clubbing, extremities motor strength 5/5 Neurologic: PERRL, EOMI, accommodation nl, no face palsy, no dysarthria Psychiatric: A+Ox3, euthymic affect Results & Data ([facility]) Vital Signs (Past 12 Hours) Vital Signs Temp Pulse Pulse Resp BP BP Pulse Ox 06/23/20 07:19 36.7 C 71 19 100/59 L 96 06/23/20 03:12 36.8 C 60 18 95/60 L 95 06/22/20 23:20 62 12 96 06/22/20 23:07 36.8 C 87 19 106/67 94 Laboratory Results Laboratory Results - last 24 hr 06/22/20 06/22/20 06/22/20 00:38 11:26 12:33 WBC RBC Hgb 10.7 L Hct 33.8 L MCV MCH MCHC RDW Std Deviation RDW Coeff of Karla Plt Count MPV PT INR Sodium Potassium Chloride Carbon Dioxide Anion Gap BUN Creatinine Est Cr Clr Drug Dosing Est GFR ( Amer) Est GFR (Non-Af Amer) BUN/Creatinine Ratio Glucose POC Glucose 81 Calcium Specimen Hemolysis Antigen Identification E Antigen - NEGATIVE 06/22/20 06/22/20 06/23/20 16:00 21:11 05:29 WBC 6.12 RBC 3.35 L Hgb 10.8 L Hct 32.0 L MCV 95.5 MCH 32.2 MCHC 33.8 RDW Std Deviation 52.4 H RDW Coeff of Karla 15.1 H Plt Count 137 MPV 11.0 H PT INR Sodium Potassium Chloride Carbon Dioxide Anion Gap BUN Creatinine Est Cr Clr Drug Dosing Est GFR ( Amer) Est GFR (Non-Af Amer) BUN/Creatinine Ratio Glucose POC Glucose 107 H 100 H Calcium Specimen Hemolysis Antigen Identification 06/23/20 06/23/20 06/23/20 05:29 05:29 07:17 WBC RBC Hgb Hct MCV MCH MCHC RDW Std Deviation RDW Coeff of Karla Plt Count MPV PT 16.4 H INR 1.6 H Sodium 141 Potassium 3.9 D Chloride 111 H Carbon Dioxide 26 Anion Gap 4.0 BUN 20 H Creatinine 0.69 Est Cr Clr Drug Dosing 88.8 Est GFR ( Amer) 100.1 Est GFR (Non-Af Amer) 86.4 BUN/Creatinine Ratio 28.8 H Glucose 73 POC Glucose 78 Calcium 8.2 L Specimen Hemolysis Antigen Identification (1) Diarrhea Diarrhea type: unspecified type Qualified Code(s): R19.7 - Diarrhea, unspecified
[2020-06-23] MEDS ORDERED: MIDAZOLAM HCL 1 MG/ML 2ML VIAL ONE (13:25)
[2020-06-23] MEDS ORDERED: fentaNYL citrate 100 MCG/2 ML VIAL ONE (13:25)
[2020-06-23] MEDS ORDERED: LIDOCAINE HCL 2% 2 ML VIAL/AMP(20MG/ML) INFIL ONE (13:25)
[2020-06-23] MEDS ORDERED: PROPOFOL IV EMULSION 10 MG/ML 20 ML VIAL IV ONE (13:25)
--- NOTE | 2020-06-23 14:08 | History & Physical Bridge Note ---
Date of Service June 23, 2020 History & Physical Bridge Note I have examined the patient, reviewed the History & Physical and in the interval since the performance of the History & Physical I have noted the following changes of clinical significance: no changes noted
--- NOTE | 2020-06-23 14:10 | Anesthesiology Consultation ---
Date of Service June 23, 2020 Assessment & Plan (1) Encounter for pre-operative examination: Chart Review Chart Review: Acceptable Risk for Surgery and Patient NOT seen in Pre Admission Testing Consults Requested none Cardiology consult 06/23/2020: Plan: Agree with urology proceeding with ureteral stent. Continue beta-sheryl, holding diuretics and valsartan Treat underlying infectious process. Will likely require RAHUL to aid in dete rmining length of course. 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 Patient on appropriate beta-sheryl therapy History Surgery Operation Date: 06/23/20 17:15 Proposed Procedures p Cystoscopy, Left Retrogradepyelogram, stent placement - Chad Pabon MD Height/Weight Height: 5 ft 6 in Weight: 104.7 kg Allergies Allergy/AdvReac Type Severity Reaction Status Date / Time adhesive Allergy Intermediate BLISTERS Verified 06/21/20 22:26 WITH STERI-STRIPS Iodinated Contrast Media Allergy Intermediate hive Verified 06/21/20 22:26 [Iodinated Contrast- Oral and IV Dye] naproxen Allergy Intermediate SWELLING - Verified 06/21/20 22:26 TOLERATES ESTEVES-[address] HALL ciprofloxacin Allergy Mild RASH Verified 06/21/20 22:26 Quinolones Allergy Mild NEUROLOGIC Verified 06/21/20 22:26 SYMPTOMS Cipro Allergy Unknown RASH Verified 02/05/17 10:40 Medications Home Medications Medication Instructions Recorded Confirmed Last Taken allopurinol 100 mg PO BID 06/23/19 06/21/20 04/08/20 ascorbic acid (vitamin C) [Vitamin 250 mg PO BID 06/23/19 06/21/20 04/08/20 C] buspirone 5 mg PO TID 06/23/19 06/21/20 04/08/20 cyanocobalamin (vitamin B-12) 1,000 mcg IM UD 06/23/19 06/21/20 01/11/20 duloxetine [Cymbalta] 40 mg PO HS 06/23/19 06/21/20 04/07/20 ondansetron 4 mg PO Q8H PRN 06/23/19 06/21/20 Unknown oxycodone [Roxicodone] 5 mg PO Q4 PRN 06/23/19 06/21/20 01/11/20 Flintstones Complete 1 tab PO BID 08/27/19 06/21/20 04/08/20 docusate sodium 100 mg capsule 100 mg PO BID PRN 08/30/19 06/21/20 01/11/20 acetaminophen 650 mg PO Q4 PRN 12/31/19 06/21/20 Unknown atorvastatin 40 mg PO PM 12/31/19 06/21/20 01/11/20 bupropion HCl 200 mg PO BID 12/31/19 06/21/20 04/08/20 calcium carbonate [Tums Extra 750 mg PO UD PRN 12/31/19 06/21/20 Unknown Strength Smoothies] calcium carbonate-vitamin D3 1 cap PO BID 12/31/19 06/21/20 04/08/20 [Calcium 600 with Vitamin D3] carvedilol 3.125 mg PO BID 12/31/19 06/21/20 04/08/20 cholecalciferol (vitamin D3) 2,000 unit PO QAM 12/31/19 06/21/20 04/08/20 [Vitamin D3] furosemide 20 mg PO QAM 12/31/19 06/21/20 04/08/20 nystatin 1 appln TOP BID PRN 12/31/19 06/21/20 Unknown omeprazole 20 mg PO QAM 12/31/19 06/21/20 04/08/20 oxybutynin chloride 5 mg PO BID 12/31/19 06/21/20 04/08/20 spironolactone 25 mg PO QAM 12/31/19 06/21/20 04/08/20 valsartan 320 mg PO QAM 12/31/19 06/21/20 04/08/20 diphenoxylate-atropine [Lomotil] 0 tab PO Q6H PRN MDD 8 tablets (04/08/20 06/21/20 Unknown mg) lactobacillus combination no.4 3,000 mmu cells PO DAILY 06/21/20 06/21/20 Unknown [Probiotic] potassium chloride [K-Tab] 20 meq PO DAILY 06/21/20 06/21/20 Unknown warfarin 2 mg PO .Q TUES & FRI 06/21/20 06/21/20 Unknown warfarin 4 mg PO [id number] 06/21/20 06/21/20 06/21/20 Active Medications Generic Name Dose Route Start Last Admin Trade Name Abilio PRN Reason Stop Dose Admin Acetaminophen 650 mg 06/22/20 02:27 06/22/20 13:45 Acetaminophen 325 Mg Tab PO 07/22/20 02:26 650 mg Q4 PRN Administration Pain Allopurinol 100 mg 06/22/20 09:00 06/23/20 08:11 Allopurinol 100 Mg Tab PO 07/22/20 08:59 100 mg BID NAY Administration Bupropion HCl 200 mg 06/23/20 07:00 06/23/20 06:31 Bupropion Sr 100 Mg Tabcr PO 07/23/20 06:59 200 mg BID@0700,1300 NAY Administration Buspirone HCl 5 mg 06/22/20 09:00 06/23/20 08:10 Buspirone 5 Mg Tab PO 07/22/20 08:59 5 mg TID NAY Administration Duloxetine HCl 40 mg 06/22/20 21:00 06/22/20 20:06 Duloxetine Hcl 20 Mg Cap PO 07/22/20 20:59 40 mg HS NAY Administration Metronidazole 500 mg in 100 mls @ 100 mls/hr 06/22/20 08:00 06/23/20 09:15 Flagyl IV 07/02/20 07:59 Infused Q8H NAY Infusion Cefepime HCl 2,000 mg/ Syringe 20 mls @ 5 mls/min 06/22/20 10:00 06/23/20 10:10 IV 07/02/20 09:59 5 mls/min Q12H NAY Administration Protocol Insulin Aspart 0 units 06/23/20 07:30 06/23/20 12:26 Insulin Aspart 100 Units/Ml 3 Ml Pen SC 07/23/20 07:29 Not Given ACHS NAY Metoprolol Succinate 12.5 mg 06/22/20 17:00 06/23/20 08:15 Metoprolol Succ 25mg Ext Rel Tab PO 07/22/20 16:59 12.5 mg [id number] NAY Administration Multivitamins/Folic Acid/Vitamin C 1 tab 06/22/20 09:00 06/23/20 08:10 Flintstones Complete Chewable Tab PO 07/22/20 08:59 1 tab BID NAY Administration Oxybutynin Chloride 5 mg 06/22/20 09:00 06/23/20 08:11 Oxybutynin Chloride 5 Mg Tab PO 07/22/20 08:59 5 mg BID NAY Administration Oxycodone HCl 5 mg 06/22/20 02:27 06/22/20 20:40 Oxycodone Hcl Ir 5 Mg Tab (Immediate Release) PO 07/06/20 02:26 5 mg Q4 PRN Administration Pain Pantoprazole Sodium 40 mg 06/22/20 09:00 06/23/20 08:11 Pantoprazole 40 Mg Tab PO 07/22/20 08:59 40 mg QAM NAY Administration NPO Date Last Intake of Fluids: 06/23/20 Time Last Intake of Fluids: 10:00 Date Last Intake of Solids: 06/23/20 Time Last Intake of Solids: 10:00 Past Medical History Medical History Aortic valve defect pt states she will be needing a valve sx (not scheduled yet) Atrial fibrillation follows with Dr. Bui Chronic back pain Degenerative disc disease Diverticular disease Dyslipidemia Factor 5 Leiden mutation, heterozygous Gastric reflux GERD (gastroesophageal reflux disease) Gout History of anxiety History of blood clots 2003 ? began in left leg and moved to both lungs d/t Factor V History of cellulitis both legs History of COPD mild--inhaler/nebulizer prn History of depression History of esophageal disorder esophageal diverticulum History of obstructive sleep apnea pt wears CPAP History of peripheral neuropathy bilateral feet History of stress incontinence Hx of cancer of uterus diagnosed 03/2019---radiation only Hx of cardiac murmur Hx of carotid artery stenosis left Hx of iron deficiency anemia Hypertension Hyperuricemia Intestinal disorder post op malabsorption On anticoagulant therapy warfarin daily Osteoarthritis Pes planus Post traumatic stress disorder Pulmonary embolism hx of bilateral 2003? Spinal stenosis Stroke 06/03/2019 after I&D left hip--vision loss in left eye--no neurologist Vision abnormalities r peripheral vision loss( posterior ischemic optic neuropathyleft eye), left side altered vision like looking through a screen door Wheelchair dependence Exercise / Class Metabolic Activity III < 4 Walking/Shop/Light housework Past Family History Family History Mother , age 91 Heart disease Family hx colonic polyps Father , age 42 Factor V deficiency Myocardial infarction Sister No problems noted. Sister Endometrial cancer Brother Family hx colonic polyps Brother , age 50 Meningitis Brother No problems noted. Brother No problems noted. Son No problems noted. Son No problems noted. Son Colon abnormality Son , in his 30 `s , " girl friend over dosed the patients son " Drug overdose Grandfather (Paternal) Family history of diabetes mellitus Other No family history of adverse response to anesthesia Past Surgical History Surgical History History of arthroplasty of left hip 2006 @ [facility]--infected after, multiple sx's History of biopsy of bladder benign History of colonoscopy with polypectomy History of incision and drainage 05/2019 of left hip---wound vac placed (currently still on as of 12/31/2019) History of left hip replacement 03/2019 @ [facility] [place] History of left shoulder replacement History of right hip replacement 2005 @ [facility] History of tonsillectomy and adenoidectomy History of tooth extraction Hx of gastric bypass Hx of tubal ligation Hx of umbilical hernia repair mesh inserted S/P colon resection 1984 @ [facility] complete sigmoid removed d/t diverticular disease Past Anesthesia History No Hx of Anesthesia Complications and No Family Hx of Anesthesia Complications History of PONV No Hx of PONV and No Hx of Motion Sickness Social History Smoking Status: Former smoker tobacco type: cigarettes Smoking cigarettes per day: 10 Smoking End Date: 1998 Hx Alcohol Use: No Hx Substance Use: No substance use type: does not use Physical Exam Vital Signs Last Vital Signs Temp 37.1 C 06/23/20 14:01 Pulse 70 06/23/20 14:01 Resp 19 06/23/20 14:01 BP 118/72 06/23/20 14:01 Pulse Ox 98 06/23/20 14:01 Testing Laboratory Results 06/23/20 05:29 06/23/20 05:29 PT 16.4 Seconds (9.0-12.0) H 06/23/20 05:29 INR 1.6 (0.9-1.1) H 06/23/20 05:29 APTT 31.3 Seconds (21.0-31.0) H 06/21/20 21:46 Hemoglobin A1c 5.1 % (4.5-5.6) 06/22/20 05:20 Urine Color Dark Yellow 06/21/20 22:45 Urine Appearance Cloudy (Clear) A 06/21/20 22:45 Urine pH 5.0 (4.5-7.5) 06/21/20 22:45 Ur Specific Fishtail 1.019 (1.000-1.030) 06/21/20 22:45 Urine Protein Negative (Negative) 06/21/20 22:45 Urine Glucose (UA) Negative (Negative) 06/21/20 22:45 Urine Ketones Trace (Negative) H 06/21/20 22:45 Urine Nitrite Positive (Negative) A 06/21/20 22:45 Ur Leukocyte Esterase 2+ (Negative) H 06/21/20 22:45 Urine WBC (Auto) 10-30 /hpf (0-5) H 06/21/20 22:45 Urine RBC (Auto) 0-4 /hpf (0-4) 06/21/20 22:45 U Hyaline Cast (Auto) 5-10 /lpf (0-5) H 06/21/20 22:45 U Epithel Cells (Auto) 0-5 /lpf (0-5) 06/21/20 22:45 Urine Bacteria (Auto) 4+ (Negative) H 06/21/20 22:45 Blood Type A Positive 06/22/20 00:38 Antibody Screen NEGATIVE 06/22/20 00:38 06/21/20 21:57 Aerobic Blood Culture - Preliminary Blood Gram negative bacilli Anaerobic Blood Culture - Preliminary No growth in Anaerobic bottle after 24 hours. 06/21/20 21:46 Aerobic Blood Culture - Preliminary Blood Gram negative bacilli Anaerobic Blood Culture - Final 06/21/20 22:45 Urine Culture - Preliminary Urine,Straight Cath Gram negative bacilli 06/23/20 06/23/20 11:16 07:17 POC Glucose 84 78 Electrocardiogram Date: 06/23/20 Normal sinus rhythm Anteroseptal infarct (cited on or before 08-APR-2020) ACUTE AK / STEMI Abnormal ECG When compared with ECG of 21-JUN-2020 21:47, No significant change was found Echocardiogram Date: 06/22/20 LV normal size Moderate LVH Focal ballooning severe hypokinesis of apex EF 45-50% Severe Trace mitral regurg
[2020-06-23] MEDS ORDERED: ONDANSETRON INJ 2 MG/ML 2 ML VIAL ONE (14:30)
--- NOTE | 2020-06-23 14:31 | Hospitalist Progress Note ---
Date of Service June 23, 2020 Assessment & Plan (1) Left ureteral calculus: (2) Hydronephrosis, left: Present on admission with abdominal pain and diarrhea CT abd/pelvis showed 18 mm obstructing calculus in the left proximal ureter. This causes moderate left-sided hydroureteronephrosis. Urology on board Plan to proceed with OR for cysto, Left retrograde pyelogram and Left stent placement. Will keep NPO for now (3) Acute UTI: Sepsis r/o since pt is afebrile, no tachycardia with normal respiratory rate UA positive for leukocytes and nitrites and bacteria Urine cx positive for gram negative baccili Received IV Rocephin in the ER Continue Cefepime and flagyl currently Daptomycin discontinued Will follow urine sensitivity Continue monitor closely (4) Bacteremia due to Gram-negative bacteria: Blood cx positive for gram negative bacilli Continue Cefepime IV repeat blood cx collected today Will discuss with ID after sensitivity resolves (5) Non-ST elevation AL (NSTEMI): Mostly related to acute illness Troponin on admission 3.35, then slightly decreased to 3.15 -->3.12 EKG showed no acute ischemic changes Cardiology on board Echo showed moderate concentric left ventricular hypertrophy. There was focal ballooning severe hypokinesis of the apex with ejection fraction 45 to 50%. Severe calcific aortic valve stenosis. Moderate to severe mitral annular calcification. No aspirin due to GI bleed INR 1.6 today Continue statin and carvedilol GI bleed Abdominal pain Diarrhea CT abd/pelvis showed mild diverticulosis of the remaining colon without CT evidence of acute diverticulitis. There is no bowel obstruction. Stools for Cdiff did not collect yet since diarrhea improves Continue Cefepime and Flagyl FOBT negative Plan to resume coumadin, once stable after urology procedure Hgb stable at 10.8 Monitor CBC Factor V Leiden mutation Hx DVT and PE S/P IVC filter Coumadin on hold due to GI bleed as pt reported, but FOBT negative INR 1.6 today Will resume anticoagulant after urology intervention HTN BP stable Continue to hold spironolactone, furosemide and Valsartan Continue monitor BP closely Right Lower extremity swelling/Erythema Doppler of LE extremity showed no evidence of DVT Continue monitor Anxiety Continue Bupropion Will add a low dose of Ativan since her anxiety worsening by being in the hospital DVT px coumadin on hold due to GI bleed INR 1.9 today Will add SCDs CODE STATUS FULL CODE Admission and Anticipated Discharge Date Admission Date: June 21, 2020 Subjective Pt was seen and examined Lying in bed with no distress Pt said that she feels better She said that she had a normal bowel movement this morning She said that her pain improved Denies any chest pain, palpitation, dizziness and SOB Physical Exam Physical Exam: General- No acute distress Head- atraumatic Eyes- PERRL, EOMI, ENT- oropharynx clear Neck- supple, no JVD Lungs- diminished BS Heart- regular rhythm; +systolic murmur Abdomen- normal bowel sounds, soft Extremities- no calf tenderness, +edema Neuro- alert, oriented x 3; PERRL, EOMI; no facial palsy; no dysarthria Skin- warm & dry Results & Data Results & Data ([facility]) Vital Signs (Past 12 Hours) Vital Signs Temp Pulse Pulse Resp BP BP Pulse Ox 06/23/20 14:01 37.1 C 70 19 118/72 98 06/23/20 11:47 62 06/23/20 11:18 36.8 C 66 19 98/62 L 98 06/23/20 07:19 36.7 C 71 19 100/59 L 96 06/23/20 03:12 36.8 C 60 18 95/60 L 95
--- NOTE | 2020-06-23 15:02 | Post Operative Brief Note ---
PG Immediate Post Op with CF Date of Surgery June 23, 2020 Pre & Post Diagnosis Operation Date: 06/23/20 17:15 Pre-Op Diagnosis: Left Ureteral Calculus Post-Op Diagnosis: Left Ureteral Calculus I identified the patient and participated in the time-out.: Yes Procedure Operation Date: 06/23/20 17:15 Actual Procedures p Cystoscopy, Left Retrograde Pyelogram, stent placement(Left) - Chad Pabon MD Surgeon hCad Pabon MD Outbound Supervisor none Estimated Blood Loss 0 Findings Consistent with Post-Op Diagnosis Specimens Specimen Description: None per surgeon
[2020-06-23] MEDS ORDERED: DIPHENOXYLATE/ATROPINE 2.5/0.025MG TAB PO PRN (15:57)
[2020-06-23] MEDS ORDERED: CALCIUM CARBONATE 500 MG CHEWABLE TAB PO PRN (15:57)
[2020-06-23] MEDS ORDERED: ONDANSETRON 4 MG OD TAB PO PRN (15:57)
[2020-06-23] MEDS ORDERED: DOCUSATE SODIUM 100 MG CAP PO PRN (15:57)
[2020-06-23] MEDS ORDERED: NON-FORMULARY MEDICATION (Cyanocobalamin (Vitamin B-12) 1,000 MCG) IM SCH (15:57)
[2020-06-23] MEDS ORDERED: NYSTATIN POWDER 15GM BTL EXT PRN (15:57)
--- NOTE | 2020-06-23 16:10 | Fluoroscopy Report ---
FL retrograde includes kub HISTORY: 74 years-old Female LT CYSTO/STENT left-sided cystourethrogram with stent placement COMPARISON: CT abdomen and pelvis 06/21/2020 TECHNIQUE: 33 spot fluoroscopic images of the abdomen were obtained utilizing 171.5 seconds fluorosco py time. FINDINGS: Left-sided urethrogram. Duplicated renal collecting system is noted with dilation of the inferior azeb e moiety and ureter. Subsequent images demonstrate a guidewire within the inferior pole with deployme nt of a ureteral stent. The proximal portion appears to be in satisfactory positioning. The distal po rtion of the stent was not imaged. IMPRESSION: Fluoroscopic assistance as above. Please see procedural report for further details. ACT 112: Negative or not required by law. The above report was generated using voice recognition software. It may contain grammatical, syntax o r spelling errors. Electronically signed by: Ezequiel Denise M.D. 06/23/2020 4:08 PM
[2020-06-23] MEDS ORDERED: IOTHALAMATE MEGLUMINE II 17.2% 250 ML VIAL INSTIL ONE (16:33)
--- NOTE | 2020-06-23 16:55 | Anesthesiology Progress Note ---
Date of Service June 23, 2020 Anesthesia Post Procedure Vital Signs Vital Signs: Temp Pulse Pulse Pulse Resp BP BP 06/23/20 16:05 36.9 C 66 16 124/73 06/23/20 15:50 36.9 C 62 16 115/71 06/23/20 15:15 67 15 125/68 06/23/20 15:05 36.6 C 68 16 119/60 06/23/20 14:01 37.1 C 70 19 118/72 06/23/20 11:47 62 06/23/20 11:18 36.8 C 66 19 98/62 L 06/23/20 07:19 36.7 C 71 19 100/59 L 06/23/20 03:12 36.8 C 60 18 95/60 L 06/22/20 23:20 62 12 06/22/20 23:07 36.8 C 87 19 106/67 06/22/20 20:02 36.8 C 71 20 94/59 L Pulse Ox 06/23/20 16:05 98 06/23/20 15:50 97 06/23/20 15:15 98 06/23/20 15:05 100 06/23/20 14:01 98 06/23/20 11:47 06/23/20 11:18 98 06/23/20 07:19 96 06/23/20 03:12 95 06/22/20 23:20 96 06/22/20 23:07 94 06/22/20 20:02 95 Pain Intensity Generalized: Pain Intensity: 5 Transfer of Care Handoff Completed per policy Notes Mental Status: alert / awake / arousable and participated in evaluation Patient Amnestic to Procedure: Yes Nausea / Vomiting: adequately controlled Pain: adequately controlled Airway Patency, RR, SpO2: stable & adequate BP & HR: stable & adequate Hydration State: stable & adequate Anesthetic Complications: no major complications apparent and Pt Satisfied with anesthetic care
[2020-06-23] MEDS: OXYCODONE HCL IR 5 MG TAB (IMMEDIATE RELEASE) PO PRN ×2 (18:01→21:49)
[2020-06-23] MEDS: WARFARIN SOD 2 MG TAB PO SCH (18:49)
[2020-06-23] MEDS: CALCIUM 600MG + VIT D 400 IU TAB PO SCH (21:40)
[2020-06-23] MEDS: DULOXETINE HCL 20 MG CAP PO SCH (21:41)
[2020-06-23] MEDS: ASCORBIC ACID 500 MG TAB PO SCH (21:41)
[2020-06-23] MEDS: carvediloL 3.125 MG TAB PO SCH (21:41)
[2020-06-23] MEDS: ATORVASTATIN 40 MG TAB PO SCH (21:47)
[2020-06-24] MEDS: metroNIDAZOLE 500 MG/100 ML BAG IV SCH ×4 (00:10→22:49)
[2020-06-24] MEDS: BuPROPion SR 100 MG TABCR PO SCH ×2 (06:28→11:57)
--- NOTE | 2020-06-24 07:11 | Electrocardiogram Report ---
Test Reason : Blood Pressure : / mmHG Vent. Rate : 068 BPM Atrial Rate : 068 BPM P-R Int : 160 ms QRS Dur : 092 ms QT Int : 412 ms P-R-T Axes : 049 007 064 degrees QTc Int : 438 ms Normal sinus rhythm Anteroseptal infarct (cited on or before 08-APR-2020) Abnormal ECG When compared with ECG of 21-JUN-2020 21:47, No significant change was found Confirmed by Harrison Ware ([id number]) on 06/24/2020 7:11:09 AM Referred By: REFERRED SELF Confirmed By:Harrison Ware
[2020-06-24 07:39] LABS: Hematocrit (blood only) 32.9 % (37-47); Hemoglobin 10.8 g/dL (12.0-16.0); Mean Corpuscular Hemoglobin 31.5 pg (25-34); Mean Corpuscular Hgb Conc 32.8 g/dL (32-36); Mean Corpuscular Volume 95.9 fL (80-100); Mean Platelet Volume 10.8 fL (7.4-10.4); Platelet Count 137 K/uL (130-400); RDW Standard Deviation 52.3 fL (36.4-46.3); Red Blood Count 3.43 M/uL (4.2-5.4); White Blood Count 5.39 K/uL (4.8-10.8)
[2020-06-24] MEDS: OXYCODONE HCL IR 5 MG TAB (IMMEDIATE RELEASE) PO PRN ×2 (07:59→17:08)
[2020-06-24] MEDS: carvediloL 3.125 MG TAB PO SCH ×2 (08:01→21:20)
[2020-06-24] MEDS: LACTOBACILLUS ACIDOPHILUS (FLORANEX) TAB PO SCH (08:01)
[2020-06-24 08:02] LABS: INR 1.6 (0.9-1.1); Prothrombin Time 16.3 Seconds (9.0-12.0)
[2020-06-24] MEDS: VALSARTAN 80 MG TAB PO SCH (08:02)
[2020-06-24] MEDS: POTASSIUM CHLORIDE 20 MEQ TABCR PO SCH (08:02)
[2020-06-24] MEDS: OXYBUTYNIN CHLORIDE 5 MG TAB PO SCH ×2 (08:03→21:00)
[2020-06-24] MEDS: ASCORBIC ACID 500 MG TAB PO SCH ×2 (08:04→20:59)
[2020-06-24] MEDS: allopurinoL 100 MG TAB PO SCH ×2 (08:04→21:00)
[2020-06-24] MEDS: PANTOprazole 40 MG TAB PO SCH (08:04)
[2020-06-24] MEDS: FLINTSTONES COMPLETE CHEWABLE TAB PO SCH ×2 (08:05→21:00)
[2020-06-24] MEDS: FUROSEMIDE 20 MG TAB PO SCH (08:05)
[2020-06-24 08:06] LABS: Calcium 7.5 mg/dl (8.5-10.1); Creatinine Clr Calc Pharmacy 101.6 ml/min; Est GFR (African American) 104.8; Est GFR (Non-African American) 90.4; Potassium 3.6 mmol/L (3.5-5.1)
[2020-06-24] MEDS: CHOLECALCIFEROL 1,000 UNITS 25 MCG TAB PO SCH (08:06)
[2020-06-24] MEDS: CALCIUM 600MG + VIT D 400 IU TAB PO SCH ×2 (08:06→21:00)
[2020-06-24] MEDS: SPIRONOLACTONE 25 MG TAB PO SCH (08:08)
[2020-06-24] MEDS: METOPROLOL SUCC 25MG EXT REL TAB PO SCH ×2 (09:04→16:43)
[2020-06-24] MEDS: CEFEPIME 2,000 MG in SYRINGE 7.5 ML IV SCH (09:05)
--- NOTE | 2020-06-24 11:45 | Cardiology Progress Note ---
Date of Service June 24, 2020 Assessment & Plan (1) Sepsis: Patient is a 74-year-old female with multiple underlying medical issues as well outlined above presents with 2-day history of chills and rigor, diarrhea abdominal pain with possible sepsis. Imaging studies demonstrating ureteral stone. Past history notable for significant infections underlying severe aortic stenosis. Troponins as noted are elevated but flat, EKG suggests septal infarct however echocardiogram reveals apical ballooning wall motion abnormality question ischemic versus likely stress mediated Patient already anticoagulated orally Urine and blood cultures positive for E. coli Plan: Tolerated ureteral stent Continue beta-sheryl, holding diuretics and valsartan Treat underlying infectious process. 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 Patient on appropriate beta-sheryl therapy (3) Diarrhea: (4) Elevated troponin: (5) Aortic stenosis, severe: (6) Factor V Leiden mutation: Admission and Anticipated Discharge Date Admission Date: June 21, 2020 Subjective Patient seen and examined, chart, medications, telemetry reviewed Patient feels improved this morning. No cardiac complaints, chest pain, shortness of breath Blood cultures growing E. coli consistent with urinary tract infection, obstructive uropathy Physical Exam Constitutional: + morbidly obese Eyes: PERRL, conjunctivae normal, anicteric sclerae ENMT: external ear and nose normal, oropharynx normal Neck: trachea midline, no thyromegaly Respiratory: normal respiratory effort, lungs clear to auscultation Cardiovascular: Rate/Rhythm: regular rate and regular rhythm Heart Sounds: normal S1 and + murmur (Harsh grade 3/6 systolic murmur heard throughout the precordium); + abnormal S2 (Diminished) and no gallop Palpation: no heave Vessels: no JVD Extremities: no edema Gastrointestinal (Abdomen): normal bowel sounds, soft, nontender, no hepatosplenomegaly Musculoskeletal: no cyanosis or clubbing, extremities motor strength 5/5 Neurologic: PERRL, EOMI, accommodation nl, no face palsy, no dysarthria Psychiatric: A+Ox3, euthymic affect Results & Data ([facility]) Vital Signs (Past 12 Hours) Vital Signs Temp Pulse Pulse Resp BP Pulse Ox 06/24/20 11:08 36.8 C 65 18 124/63 95 06/24/20 06:51 36.8 C 65 20 123/58 L 96 06/24/20 03:52 36.6 C 60 20 110/66 96 (1) Diarrhea Diarrhea type: unspecified type Qualified Code(s): R19.7 - Diarrhea, unspecified
--- NOTE | 2020-06-24 12:35 | Operative Report (OR) ---
DATE OF OPERATION: 06/21/2020 PROCEDURES PERFORMED: Cystoscopy, left retrograde and left stent placement. PREOPERATIVE DIAGNOSES: Urosepsis, history of heart failure and proximal left ureteral stone. HISTORY OF PRESENTATION: The patient is a 74-year-old female who presented with abdominal pain, but also had significant cardiac issues with elevated troponins and was evaluated, initially was not febrile and did not have an elevated white blood cell count, but did have positive blood cultures and obstructing stone with hydronephrosis, as well as what appeared to be a UTI. The patient was evaluated the day of her admission because of the cardiac status and the lack of fever, it was opted not to place a stent. She was reevaluated that night, was still afebrile, had not been definitively cleared by cardiology. I spoke with cardiology the morning of the procedure and they did clear her for a stent placement under sedation. DESCRIPTION OF THE PROCEDURE: The patient was taken to the cystoscopy suite where she had been on IV antibiotics. She had her legs placed in dorsal lithotomy position, she was prepped and draped in the usual sterile fashion. A cystoscope was passed per urethra and the left orifice was visualized, it was cannulated and a retrograde was performed. 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 It was attempted to pass a wire, but would not go by this, had to pass the 5-[place]izen [place] open-ended catheter over the wire up to just below where the stone appeared to be fine. I was able to pass a dual-flex guidewire beyond the obstructing stone into the distal ____ and then a 4.8-[place]izen [place] 24 cm stent beyond the stone into the distal hydronephrotic ____ and there was a curl left in the bladder. There did appear to be a hydronephrotic drip after this through the stent and I did speak with radiology and confirmed that the stent was in good position beyond the obstructing stone. At the end of the procedure, the patient was transferred to recovery room in stable condition. I attest to the content of the Intraoperative Record and any orders documented therein. Any exception s are noted below.
[2020-06-24] MEDS: WARFARIN SOD 4 MG TAB PO SCH (15:20)
--- NOTE | 2020-06-24 20:20 | Hospitalist Progress Note ---
Date of Service June 24, 2020 Assessment & Plan (1) Left ureteral calculus: (2) Hydronephrosis, left: Present on admission with abdominal pain and diarrhea CT abd/pelvis showed 18 mm obstructing calculus in the left proximal ureter. This causes moderate left-sided hydroureteronephrosis. Urology on board S/P day#1 cysto, Left retrograde pyelogram and Left stent placement. Stable (3) Acute UTI: Sepsis r/o since pt is afebrile, no tachycardia with normal respiratory rate UA positive for leukocytes and nitrites and bacteria Urine cx positive for gram negative baccili Received IV Rocephin in the ER On Cefepime and flagyl currently Urine cx and blood cx grew Ecoli Daptomycin discontinued Will changed Cefepime to Rocephin IV Continue monitor closely (4) Bacteremia due to Gram-negative bacteria: Blood cx positive for gram negative bacilli - Ecoli IV Cefepime IV changed to rocephin Repeat blood cx collected on 06/23 showed no growth Plan for RAHUL on Friday (5) Non-ST elevation CT (NSTEMI): Mostly related to acute illness Troponin on admission 3.35, then slightly decreased to 3.15 -->3.12 EKG showed no acute ischemic changes Cardiology on board Echo showed moderate concentric left ventricular hypertrophy. There was focal ballooning severe hypokinesis of the apex with ejection fraction 45 to 50%. Severe calcific aortic valve stenosis. Moderate to severe mitral annular calcification. No aspirin due to GI bleed INR 1.6 today Continue statin and carvedilol GI bleed Abdominal pain Diarrhea CT abd/pelvis showed mild diverticulosis of the remaining colon without CT evidence of acute diverticulitis. There is no bowel obstruction. Stools for Cdiff did not collect yet since diarrhea improves Continue Cefepime and Flagyl FOBT negative Continue coumadin, Hgb stable at 10.8 Monitor CBC Factor V Leiden mutation Hx DVT and PE S/P IVC filter Coumadin on hold due to GI bleed as pt reported, but FOBT negative INR 1.6 today Continue coumadin HTN BP stable Continue to hold spironolactone, furosemide and Valsartan Continue monitor BP closely Right Lower extremity swelling/Erythema Doppler of LE extremity showed no evidence of DVT Continue monitor Anxiety Continue Bupropion Will add a low dose of Ativan since her anxiety worsening by being in the hospital DVT px On coumadin INR 1.6 today On SCDs CODE STATUS FULL CODE Admission and Anticipated Discharge Date Admission Date: June 21, 2020 Subjective Pt was seen and examined Lying in bed with no distress Pt said that she feels much better She said that her pain improves Denies any chest pain, dizziness and SOB Physical Exam Physical Exam: General- No acute distress Head- atraumatic Eyes- PERRL, EOMI, ENT- oropharynx clear Neck- supple, no JVD Lungs- diminished BS Heart- regular rhythm; +systolic murmur Abdomen- normal bowel sounds, soft Extremities- no calf tenderness, +edema Neuro- alert, oriented x 3; PERRL, EOMI; no facial palsy; no dysarthria Skin- warm & dry Results & Data Results & Data ([facility]) Vital Signs (Past 12 Hours) Vital Signs Temp Pulse Resp BP Pulse Ox 06/24/20 20:04 36.9 C 65 20 114/70 94 06/24/20 14:55 37.0 C 64 18 119/61 100 06/24/20 11:08 36.8 C 65 18 124/63 95
[2020-06-24] MEDS: cefTRIAXone SODIUM 2,000 MG in DEXTROSE 5% 50 ML IV SCH (21:00)
[2020-06-24] MEDS: ATORVASTATIN 40 MG TAB PO SCH (21:00)
[2020-06-24] MEDS: DULOXETINE HCL 20 MG CAP PO SCH (21:00)
[2020-06-25] MEDS: OXYCODONE HCL IR 5 MG TAB (IMMEDIATE RELEASE) PO PRN ×3 (05:07→20:15)
[2020-06-25] MEDS: BuPROPion SR 100 MG TABCR PO SCH ×2 (06:19→13:21)
[2020-06-25 07:15] LABS: INR 1.7 (0.9-1.1); Prothrombin Time 17.7 Seconds (9.0-12.0)
[2020-06-25] MEDS: metroNIDAZOLE 500 MG/100 ML BAG IV SCH ×2 (07:39→15:30)
[2020-06-25] MEDS: ASCORBIC ACID 500 MG TAB PO SCH ×2 (07:40→20:16)
[2020-06-25] MEDS: allopurinoL 100 MG TAB PO SCH ×2 (07:40→20:16)
[2020-06-25] MEDS: SPIRONOLACTONE 25 MG TAB PO SCH (07:40)
[2020-06-25] MEDS: POTASSIUM CHLORIDE 20 MEQ TABCR PO SCH (07:40)
[2020-06-25] MEDS: CALCIUM 600MG + VIT D 400 IU TAB PO SCH ×2 (07:41→20:15)
[2020-06-25] MEDS: VALSARTAN 80 MG TAB PO SCH (07:41)
[2020-06-25] MEDS: PANTOprazole 40 MG TAB PO SCH (07:41)
[2020-06-25] MEDS: FLINTSTONES COMPLETE CHEWABLE TAB PO SCH ×2 (07:41→20:15)
[2020-06-25] MEDS: CHOLECALCIFEROL 1,000 UNITS 25 MCG TAB PO SCH (07:41)
[2020-06-25] MEDS: FUROSEMIDE 20 MG TAB PO SCH (07:42)
[2020-06-25] MEDS: LACTOBACILLUS ACIDOPHILUS (FLORANEX) TAB PO SCH (07:42)
[2020-06-25] MEDS: carvediloL 3.125 MG TAB PO SCH ×2 (07:42→20:16)
[2020-06-25] MEDS: METOPROLOL SUCC 25MG EXT REL TAB PO SCH ×2 (07:43→16:44)
[2020-06-25] MEDS: OXYBUTYNIN CHLORIDE 5 MG TAB PO SCH ×2 (07:43→20:17)
--- NOTE | 2020-06-25 11:24 | Cardiology Progress Note ---
Date of Service June 25, 2020 Assessment & Plan (1) Sepsis: Patient is a 74-year-old female with multiple underlying medical issues as well outlined above presents with 2-day history of chills and rigor, diarrhea abdominal pain with possible sepsis. Imaging studies demonstrating ureteral stone. Past history notable for significant infections underlying severe aortic stenosis. Troponins as noted are elevated but flat, EKG suggests septal infarct however echocardiogram reveals apical ballooning wall motion abnormality question ischemic versus likely stress mediated Patient already anticoagulated orally Urine and blood cultures positive for E. coli, pansensitive Plan: Tolerated ureteral stent Continue beta-sheryl, holding diuretics and valsartan Treat underlying infectious process. 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 Patient on appropriate beta-sheryl therapy (3) Diarrhea: (4) Elevated troponin: (5) Aortic stenosis, severe: (6) Factor V Leiden mutation: Admission and Anticipated Discharge Date Admission Date: June 21, 2020 Subjective Patient seen and examined, chart medications telemetry reviewed States feels better. Has not been out of bed. No chest pains or dizziness. No lightheadedness. Physical Exam Constitutional: + morbidly obese Eyes: PERRL, conjunctivae normal, anicteric sclerae ENMT: external ear and nose normal, oropharynx normal Neck: trachea midline, no thyromegaly Respiratory: normal respiratory effort, lungs clear to auscultation Cardiovascular: Rate/Rhythm: regular rate and regular rhythm Heart Sounds: normal S1 and + murmur (Harsh grade 3/6 systolic murmur heard throughout the precordium); + abnormal S2 (Diminished) and no gallop Palpation: no heave Vessels: no JVD Extremities: no edema Gastrointestinal (Abdomen): normal bowel sounds, soft, nontender, no hepatosplenomegaly Musculoskeletal: no cyanosis or clubbing, extremities motor strength 5/5 Neurologic: PERRL, EOMI, accommodation nl, no face palsy, no dysarthria Psychiatric: A+Ox3, euthymic affect Results & Data ([facility]) Vital Signs (Past 12 Hours) Vital Signs Temp Pulse Pulse Pulse Resp BP Pulse Ox 06/25/20 11:19 36.8 C 64 16 111/69 95 06/25/20 08:02 36.6 C 78 19 115/75 95 06/25/20 08:00 65 06/25/20 07:30 80 06/25/20 02:58 36.9 C 59 L 17 103/53 L 94 Laboratory Results Laboratory Results - last 24 hr 06/24/20 06/24/20 06/25/20 16:13 20:45 06:34 PT 17.7 H INR 1.7 H POC Glucose 146 H 184 H 06/25/20 06/25/20 07:15 11:17 PT INR POC Glucose 96 123 H (1) Diarrhea Diarrhea type: unspecified type Qualified Code(s): R19.7 - Diarrhea, unspecified
[2020-06-25] MEDS: WARFARIN SOD 4 MG TAB PO SCH (15:30)
--- NOTE | 2020-06-25 18:04 | Hospitalist Progress Note ---
Date of Service June 25, 2020 Assessment & Plan (1) Left ureteral calculus: (2) Hydronephrosis, left: Present on admission with abdominal pain and diarrhea CT abd/pelvis showed 18 mm obstructing calculus in the left proximal ureter. This causes moderate left-sided hydroureteronephrosis. Urology on board S/P day#2 cysto, Left retrograde pyelogram and Left stent placement. Stable (3) Acute UTI: Sepsis r/o since pt is afebrile, no tachycardia with normal respiratory rate UA positive for leukocytes and nitrites and bacteria Urine cx positive for gram negative baccili Received IV Rocephin in the ER On Cefepime and flagyl currently Urine cx and blood cx grew Ecoli Daptomycin discontinued Will changed Cefepime to Rocephin IV, continue IV rocephin Continue monitor closely (4) Bacteremia due to Gram-negative bacteria: Blood cx positive for gram negative bacilli - Ecoli IV Cefepime IV changed to rocephin Repeat blood cx collected on 06/23 showed no growth Plan for RAHUL tomorrow Will make NPO after midnight (5) Non-ST elevation [place] (NSTEMI): Mostly related to acute illness Troponin on admission 3.35, then slightly decreased to 3.15 -->3.12 EKG showed no acute ischemic changes Cardiology on board Echo showed moderate concentric left ventricular hypertrophy. There was focal ballooning severe hypokinesis of the apex with ejection fraction 45 to 50%. Severe calcific aortic valve stenosis. Moderate to severe mitral annular calcification. No aspirin due to GI bleed INR 1.7 today Continue statin and carvedilol GI bleed Abdominal pain Diarrhea CT abd/pelvis showed mild diverticulosis of the remaining colon without CT evidence of acute diverticulitis. There is no bowel obstruction. Stools for Cdiff did not collect yet since diarrhea improves Continue Cefepime and Flagyl FOBT negative Continue coumadin, Hgb stable at 10.8 Monitor CBC Factor V Leiden mutation Hx DVT and PE S/P IVC filter Coumadin on hold due to GI bleed as pt reported, but FOBT negative INR 1.7 today Continue coumadin HTN BP stable Continue to hold spironolactone, furosemide and Valsartan Continue monitor BP closely Right Lower extremity swelling/Erythema Doppler of LE extremity showed no evidence of DVT Continue monitor Anxiety Continue Bupropion Will add a low dose of Ativan since her anxiety worsening by being in the hospital DVT px On coumadin INR 1.7 today On SCDs CODE STATUS FULL CODE Admission and Anticipated Discharge Date Admission Date: June 21, 2020 Subjective Pt was seen and examined Lying in bed with no distress Pt said that she feels achy ( she said that is her normal arthritis pain) Denies any chest pain, palpitation, dizziness and SOB Physical Exam Physical Exam: General- No acute distress Head- atraumatic Eyes- PERRL, EOMI, ENT- oropharynx clear Neck- supple, no JVD Lungs- diminished BS Heart- regular rhythm; +systolic murmur Abdomen- normal bowel sounds, soft Extremities- no calf tenderness, +edema Neuro- alert, oriented x 3; PERRL, EOMI; no facial palsy; no dysarthria Skin- warm & dry Results & Data Results & Data ([facility]) Vital Signs (Past 12 Hours) Vital Signs Temp Pulse Pulse Pulse Resp BP Pulse Ox 06/25/20 16:43 125/78 06/25/20 16:02 67 06/25/20 15:06 37 C 63 18 98/64 L 95 06/25/20 11:19 36.8 C 64 16 111/69 95 06/25/20 08:02 36.6 C 78 19 115/75 95 06/25/20 08:00 65 06/25/20 07:30 80
[2020-06-25] MEDS: ATORVASTATIN 40 MG TAB PO SCH (20:15)
[2020-06-25] MEDS: cefTRIAXone SODIUM 2,000 MG in DEXTROSE 5% 50 ML IV SCH (20:16)
[2020-06-25] MEDS: DULOXETINE HCL 20 MG CAP PO SCH (20:16)
[2020-06-26] MEDS: metroNIDAZOLE 500 MG/100 ML BAG IV SCH ×4 (00:19→23:33)
[2020-06-26] MEDS: BuPROPion SR 100 MG TABCR PO SCH ×2 (06:43→14:10)
[2020-06-26 07:54] LABS: INR 1.9 (0.9-1.1); Prothrombin Time 19.7 Seconds (9.0-12.0)
[2020-06-26 08:00] LABS: BUN Creatinine Ratio 20.5 (10-20); Calcium 7.3 mg/dl (8.5-10.1); Creatinine Clr Calc Pharmacy 88.2 ml/min; Est GFR (African American) 100.6; Est GFR (Non-African American) 86.8; Potassium 3.6 mmol/L (3.5-5.1)
[2020-06-26] MEDS ORDERED: fentaNYL citrate 100 MCG/2 ML VIAL ONE ×2 (09:46→09:47)
[2020-06-26] MEDS ORDERED: MIDAZOLAM HCL 1 MG/ML 2ML VIAL ONE ×3 (09:47)
--- NOTE | 2020-06-26 10:30 | Pre Anesthesia Assessment ---
Date of Service June 26, 2020 Pre Sedation Assessment Vital Signs Temp Pulse Pulse Pulse Resp BP Pulse Ox 06/26/20 10:25 69 18 157/81 H 100 06/26/20 10:20 83 18 160/79 H 98 06/26/20 10:15 77 20 154/77 H 98 06/26/20 10:10 83 20 145/62 H 100 06/26/20 10:09 81 20 148/68 H 100 06/26/20 10:08 83 20 146/68 H 99 06/26/20 08:00 66 06/26/20 07:11 36.7 C 68 18 100/60 97 06/26/20 03:25 36.7 C 63 21 93/61 L 95 06/25/20 23:06 36.7 C 63 20 104/68 96 06/25/20 19:31 36.6 C 65 18 115/72 96 06/25/20 16:43 125/78 06/25/20 16:02 67 06/25/20 15:06 37 C 63 18 98/64 L 95 06/25/20 11:19 36.8 C 64 16 111/69 95 Cardiovascular + regular rate and + regular rhythm + murmur; no gallop no heave Respiratory normal respiratory effort, lungs clear to auscultation Pre-Sedation Airway Assessment Smoking Status: Former smoker Hx Sleep Apnea: No Short, Thick Neck: Yes Thyromental Distance: > or= 3.5 Finger Breadths Oral Cavity: + WNL Mallampati Class: II ASA: ASA3 NPO Status Date of Last Intake of Fluids: 06/25/20 Date of Last Intake of Solid Food: 06/25/20 Procedure Planning Contraindications for Sedation: none Current Medications Reviewed: Yes Notes The planned sedation has been discussed with the patient. Informed Consent was obtained. I have identified the patient, determined the appropriateness of sedation and have assessed the patient immediately prior to the procedure. All medicine(s) and interventions are by my order.
--- NOTE | 2020-06-26 10:51 | Post Anesthesia Assessment ---
Date of Service June 26, 2020 Post Sedation Assessment Vital Signs Temp Pulse Pulse Pulse Resp BP Pulse Ox 06/26/20 10:30 72 20 141/67 H 99 06/26/20 10:25 69 18 157/81 H 100 06/26/20 10:20 83 18 160/79 H 98 06/26/20 10:15 77 20 154/77 H 98 06/26/20 10:10 83 20 145/62 H 100 06/26/20 10:09 81 20 148/68 H 100 06/26/20 10:08 83 20 146/68 H 99 06/26/20 08:00 66 06/26/20 07:11 36.7 C 68 18 100/60 97 06/26/20 03:25 36.7 C 63 21 93/61 L 95 06/25/20 23:06 36.7 C 63 20 104/68 96 06/25/20 19:31 36.6 C 65 18 115/72 96 06/25/20 16:43 125/78 06/25/20 16:02 67 06/25/20 15:06 37 C 63 18 98/64 L 95 06/25/20 11:19 36.8 C 64 16 111/69 95 Recovery Score Activity: Moves 4 extremities Respiration: Deep Breath/Cough Circulation: +/-20% PreAnes Value Consciousness: Fully Awake Oxygen Saturation: > 92% On Room Air Post Anesthesia Score: 10 Discharge Sedation Level of Care: Phase I Post Sedation Plan On clinical assessment, the patient appears to have tolerated the sedation without complications. Patient is recovering as anticipated. Patient will continue to be monitored by nursing and may be discharged when sedation discharge criteria are met per below protocol. Upon Completions of procedure up to 15 minutes continue every 5 minute vital s igns and the P.A.R. score; then discharge to a Phase I or Fast Track to Phase II per the following guidelines: * Discharge Patient to appropriate Phase II area if PAR is 8 or greater or return to pre- procedure baseline. The post - procedure orders will be as directed. * If PAR score is less than 8 or not return to pre-procedure baseline then patient will follow Phase I monitoring till PAR is reached for Phase II. The Phase I may be done in procedure room or may call to secure a Phase I area. * If naloxone or flumazenil are used for reversal, hold in Phase I for continued monitoring from when last reversal dose was given for a minimum of 60 minutes or longer pending the nurse and/or physician discretion of patient condition before discharge to Phase II. Please call the Sedation Physician to re-evaluate and complete post-note for discharge to Phase II area. Do NOT discharge from procedure sedation or Phase 1 until post- sedation evaluation note is complete by procedure /sedation MD Sedation Discharge Instructions to be given to the patient at discharge to home.
--- NOTE | 2020-06-26 10:55 | Cardiology Progress Note ---
Date of Service June 26, 2020 Assessment & Plan (1) Sepsis: Patient is a 74-year-old female with multiple underlying medical issues as well outlined above presented with 2-day history of chills and rigor, diarrhea abdominal pain with possible sepsis. Imaging studies demonstrating ureteral stone. Past history notable for significant infections underlying severe aortic stenosis. Troponins as noted are elevated but flat, EKG suggests septal infarct however echocardiogram reveals apical ballooning wall motion abnormality question ischemic versus likely stress mediated Patient already anticoagulated orally Urine and blood cultures positive for E. coli, pansensitive Plan: Tolerated ureteral stent Continue beta-sheryl, holding diuretics and valsartan Treat underlying infectious process. RAHUL today demonstrates severe calcific aortic stenosis, mild focal hypokinesis the apex with preserved LV systolic function. 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 Patient on appropriate beta-sheryl therapy (3) Diarrhea: (4) Elevated troponin: (5) Aortic stenosis, severe: (6) Factor V Leiden mutation: Admission and Anticipated Discharge Date Admission Date: June 21, 2020 Subjective Patient was seen and examined chart medications telemetry reviewed with patient examined both pre-and post transesophageal echocardiogram No complaints overnight no further fevers or chills. No chest pain or discomfort. Physical Exam Constitutional: + morbidly obese Eyes: PERRL, conjunctivae normal, anicteric sclerae ENMT: Mallampati Class: II Neck: trachea midline, no thyromegaly Respiratory: normal respiratory effort, lungs clear to auscultation Cardiovascular: Rate/Rhythm: regular rate and regular rhythm Heart Sounds: normal S1 and + murmur; + abnormal S2 (Diminished) and no gallop Palpation: no heave Vessels: no JVD Extremities: no edema Gastrointestinal (Abdomen): normal bowel sounds, soft, nontender, no hepatosplenomegaly Musculoskeletal: no cyanosis or clubbing, extremities motor strength 5/5 Neurologic: PERRL, EOMI, accommodation nl, no face palsy, no dysarthria Psychiatric: A+Ox3, euthymic affect Results & Data ([facility]) Vital Signs (Past 12 Hours) Vital Signs Temp Pulse Pulse Pulse Resp BP Pulse Ox 06/26/20 10:45 80 20 123/54 L 100 06/26/20 10:30 72 20 141/67 H 99 06/26/20 10:25 69 18 157/81 H 100 06/26/20 10:20 83 18 160/79 H 98 06/26/20 10:15 77 20 154/77 H 98 06/26/20 10:10 83 20 145/62 H 100 06/26/20 10:09 81 20 148/68 H 100 06/26/20 10:08 83 20 146/68 H 99 06/26/20 08:00 66 06/26/20 07:11 36.7 C 68 18 100/60 97 06/26/20 03:25 36.7 C 63 21 93/61 L 95 06/25/20 23:06 36.7 C 63 20 104/68 96 (1) Diarrhea Diarrhea type: unspecified type Qualified Code(s): R19.7 - Diarrhea, unspecified
[2020-06-26] MEDS: LACTOBACILLUS ACIDOPHILUS (FLORANEX) TAB PO SCH (11:04)
[2020-06-26] MEDS: FUROSEMIDE 20 MG TAB PO SCH (11:04)
[2020-06-26] MEDS: ASCORBIC ACID 500 MG TAB PO SCH ×2 (11:04→19:51)
[2020-06-26] MEDS: OXYBUTYNIN CHLORIDE 5 MG TAB PO SCH ×2 (11:04→19:50)
[2020-06-26] MEDS: CHOLECALCIFEROL 1,000 UNITS 25 MCG TAB PO SCH (11:05)
[2020-06-26] MEDS: FLINTSTONES COMPLETE CHEWABLE TAB PO SCH ×2 (11:05→19:51)
[2020-06-26] MEDS: SPIRONOLACTONE 25 MG TAB PO SCH (11:05)
[2020-06-26] MEDS: METOPROLOL SUCC 25MG EXT REL TAB PO SCH ×2 (11:05→15:53)
[2020-06-26] MEDS: VALSARTAN 80 MG TAB PO SCH (11:06)
[2020-06-26] MEDS: carvediloL 3.125 MG TAB PO SCH ×2 (11:06→19:50)
[2020-06-26] MEDS: allopurinoL 100 MG TAB PO SCH ×2 (11:06→19:52)
[2020-06-26] MEDS: POTASSIUM CHLORIDE 20 MEQ TABCR PO SCH (11:06)
[2020-06-26] MEDS: CALCIUM 600MG + VIT D 400 IU TAB PO SCH ×2 (11:07→19:50)
[2020-06-26] MEDS: PANTOprazole 40 MG TAB PO SCH (11:07)
[2020-06-26] MEDS: OXYCODONE HCL IR 5 MG TAB (IMMEDIATE RELEASE) PO PRN ×2 (14:14→19:52)
--- NOTE | 2020-06-26 14:34 | Hospitalist Progress Note ---
Date of Service June 26, 2020 Assessment & Plan (1) Left ureteral calculus: (2) Hydronephrosis, left: Present on admission with abdominal pain and diarrhea CT abd/pelvis showed 18 mm obstructing calculus in the left proximal ureter. This causes moderate left-sided hydroureteronephrosis. Urology on board S/P day#3 cysto, Left retrograde pyelogram and Left stent placement. Stable (3) Acute UTI: Sepsis r/o since pt is afebrile, no tachycardia with normal respiratory rate UA positive for leukocytes and nitrites and bacteria Urine cx positive for gram negative baccili Received IV Rocephin in the ER On Cefepime and flagyl currently Urine cx and blood cx grew Ecoli Daptomycin discontinued Will changed Cefepime to Rocephin IV, continue IV rocephin Waiting for call back from ID in [place] for abx on discharge Will transition to PO Bactrim on discharge (4) Bacteremia due to Gram-negative bacteria: Blood cx positive for gram negative bacilli - Ecoli IV Cefepime IV changed to rocephin Repeat blood cx collected on 06/23 showed no growth RAHUL done today showed no vegetation ID at [facility] contacted about final axb course on discharge Case discussed with ID Dr. Wagner in [place] that recommended to transition to PO Bactrim to complete 14 days course (5) Non-ST elevation [place] (NSTEMI): Mostly related to acute illness Troponin on admission 3.35, then slightly decreased to 3.15 -->3.12 EKG showed no acute ischemic changes Cardiology on board Echo showed moderate concentric left ventricular hypertrophy. There was focal ballooning severe hypokinesis of the apex with ejection fraction 45 to 50%. Severe calcific aortic valve stenosis. Moderate to severe mitral annular calcification. No aspirin due to GI bleed INR 1.9 today Continue statin and carvedilol GI bleed Abdominal pain Diarrhea CT abd/pelvis showed mild diverticulosis of the remaining colon without CT evidence of acute diverticulitis. There is no bowel obstruction. Stools for Cdiff did not collect yet since diarrhea improves Continue Cefepime and Flagyl FOBT negative Continue coumadin, Hgb stable at 10.8 Monitor CBC Factor V Leiden mutation Hx DVT and PE S/P IVC filter Coumadin on hold due to GI bleed as pt reported, but FOBT negative INR 1.9 today Continue coumadin HTN BP stable Continue to hold spironolactone, furosemide and Valsartan Continue monitor BP closely Severe Aortic Stenosis RAHUL done today showed moderate concentric left ventricular hypertrophy. Moderate apical wall hypokinesis. Aortic valve is trileaflet. Severe calcific aortic valve stenosis. Ejection fraction 50 to 55%. cardiology on board Will need surgical evaluation for aortic valve replacement versus TAVR likely next 6 months time Right Lower extremity swelling/Erythema Doppler of LE extremity showed no evidence of DVT Continue monitor Anxiety Continue Bupropion Will add a low dose of Ativan since her anxiety worsening by being in the hospital DVT px On coumadin INR 1.9 today On SCDs CODE STATUS FULL CODE Disposition Possible discharge home tomorrow Admission and Anticipated Discharge Date Admission Date: June 21, 2020 Subjective Pt was seen and examined Lying in bed with no distress Pt said that she feels tired because she just got back from [place] Denies any chest pain, palpitation, dizziness and SOB Physical Exam Physical Exam: General- No acute distress Head- atraumatic Eyes- PERRL, EOMI, ENT- oropharynx clear Neck- supple, no JVD Lungs- diminished BS Heart- regular rhythm; +systolic murmur Abdomen- normal bowel sounds, soft Extremities- no calf tenderness, +edema Neuro- alert, oriented x 3; PERRL, EOMI; no facial palsy; no dysarthria Skin- warm & dry Results & Data Results & Data ([facility]) Vital Signs (Past 12 Hours) Vital Signs Temp Pulse Pulse Pulse Resp BP Pulse Ox 06/26/20 11:29 36.7 C 65 18 95/50 L 98 06/26/20 11:00 36.9 C 68 20 117/66 97 06/26/20 10:45 80 20 123/54 L 100 06/26/20 10:30 72 20 141/67 H 99 06/26/20 10:25 69 18 157/81 H 100 06/26/20 10:20 83 18 160/79 H 98 06/26/20 10:15 77 20 154/77 H 98 06/26/20 10:10 83 20 145/62 H 100 06/26/20 10:09 81 20 148/68 H 100 06/26/20 10:08 83 20 146/68 H 99 06/26/20 08:00 66 06/26/20 07:11 36.7 C 68 18 100/60 97 06/26/20 03:25 36.7 C 63 21 93/61 L 95
[2020-06-26] MEDS: WARFARIN SOD 4 MG TAB PO SCH (15:54)
[2020-06-26] MEDS: cefTRIAXone SODIUM 2,000 MG in DEXTROSE 5% 50 ML IV SCH (19:44)
[2020-06-26] MEDS: DULOXETINE HCL 20 MG CAP PO SCH (19:50)
[2020-06-26] MEDS: ATORVASTATIN 40 MG TAB PO SCH (19:50)
[2020-06-27 08:05] LABS: INR 2.1 (0.9-1.1); Prothrombin Time 20.9 Seconds (9.0-12.0)
[2020-06-27] MEDS: allopurinoL 100 MG TAB PO SCH ×2 (08:16→21:16)
[2020-06-27] MEDS: POTASSIUM CHLORIDE 20 MEQ TABCR PO SCH (08:16)
[2020-06-27] MEDS: SPIRONOLACTONE 25 MG TAB PO SCH (08:16)
[2020-06-27] MEDS: CHOLECALCIFEROL 1,000 UNITS 25 MCG TAB PO SCH (08:16)
[2020-06-27] MEDS: FLINTSTONES COMPLETE CHEWABLE TAB PO SCH ×2 (08:16→21:15)
[2020-06-27] MEDS: OXYBUTYNIN CHLORIDE 5 MG TAB PO SCH ×2 (08:16→21:16)
[2020-06-27] MEDS: ASCORBIC ACID 500 MG TAB PO SCH ×2 (08:16→21:14)
[2020-06-27] MEDS: METOPROLOL SUCC 25MG EXT REL TAB PO SCH ×2 (08:17→17:03)
[2020-06-27] MEDS: carvediloL 3.125 MG TAB PO SCH ×2 (08:17→21:15)
[2020-06-27] MEDS: VALSARTAN 80 MG TAB PO SCH (08:17)
[2020-06-27] MEDS: PANTOprazole 40 MG TAB PO SCH (08:17)
[2020-06-27] MEDS: BuPROPion SR 100 MG TABCR PO SCH ×2 (08:17→13:19)
[2020-06-27] MEDS: CALCIUM 600MG + VIT D 400 IU TAB PO SCH ×2 (08:17→21:14)
[2020-06-27] MEDS: FUROSEMIDE 20 MG TAB PO SCH (08:17)
[2020-06-27] MEDS: LACTOBACILLUS ACIDOPHILUS (FLORANEX) TAB PO SCH (08:18)
[2020-06-27] MEDS: metroNIDAZOLE 500 MG/100 ML BAG IV SCH ×2 (08:18→17:03)
--- NOTE | 2020-06-27 10:00 | Urology Progress Note ---
Date of Service June 27, 2020 Assessment & Plan (1) Left ureteral calculus: (2) Hydronephrosis, left: (3) Acute UTI: 74 year-old female with a complex medical history status post cystoscopy, left retrograde pyelogram, and left stent placement secondary to 18 mm left proximal ureteral stone and UTI. -Clinically progressing as expected. -Remains afebrile, creatinine stable. -Urine and blood cultures positive for E.Coli, currently on Ceftriaxone. -Agree with awaiting recommendations from ID regarding antibiotic regimen on discharge. -Will arrange outpatient follow-up with urology service to discuss stone management. -Okay from perspective for discharge once medically stable, continue management per primary team. Thank you for allowing us to participate in the acute care of Mrs. Liang. Please reconsult us with additional questions, concerns or changes in patient status. Admission and Anticipated Discharge Date Admission Date: June 21, 2020 Subjective Patient POD#4 cystoscopy, left retrograde pyelogram, and left stent placement secondary to 18 mm left proximal ureteral stone and UTI. Patient feeling better overall. Does complain of having several episodes of loose stool today. Denies flank or abdominal pain. Denies fevers or chills. No nausea or vomiting. Denies urinary frequency or urgency. Denies dysuria or hematuria. Tolerating stent well. Denies additional urologic concerns today. Review of Systems Constitutional: as per Subjective / HPI; no fever and no chills Respiratory: no cough and no dyspnea Cardiovascular: + edema Gastrointestinal: as per Subjective / HPI and + diarrhea/loose stools; no nausea and no vomiting Genitourinary: as per Subjective / HPI Physical Exam Constitutional: well developed and well nourished; no acute distress and not ill appearing Respiratory: normal respiratory effort and able to speak in complete sentences; no respiratory distress and no audible wheezes Cardiovascular: Extremities: + edema (Trace pitting edema to bilateral lower extremities) Gastrointestinal (Abdomen): Inspection/Auscultation: abdomen normal to inspection; abdomen not distended Percussion/Palpation: abdomen soft; abdomen nontender and no guarding Psychiatric: Orientation: alert, oriented x 3 and cooperative Affect: euthymic affect Genitourinary: no CVA tenderness Results & Data ([facility]) Vital Signs (Past 12 Hours) Vital Signs Temp Pulse Pulse Resp BP Pulse Ox 06/27/20 07:04 36.4 C L 72 19 104/68 97 06/27/20 03:01 36.5 C 69 20 104/67 96 06/27/20 00:08 64 06/26/20 23:13 36.6 C 74 19 106/69 95 PG Care Time/CCT Total # of Minutes Spent Total Time Spent with Patient: Total time spent is greater than 50% in coordination of care (as documented) at patient's floor/unit and/or counseling patient: Coding Level of Care Code 52959 Subseq Hosp Care Lvl 2 Diagnoses Left ureteral calculus N20.1 Hydronephrosis, left N13.30 Acute UTI N39.0
[2020-06-27] MEDS ORDERED: LOPERAMIDE HCL 2 MG CAP PO PRN (10:46)
--- NOTE | 2020-06-27 12:17 | Cardiology Progress Note ---
Date of Service June 27, 2020 Assessment & Plan (1) Sepsis: Patient is a 74-year-old female with multiple underlying medical issues as well outlined above presented with 2-day history of chills and rigor, diarrhea abdominal pain with possible sepsis. Imaging studies demonstrating ureteral stone. Past history notable for significant orthopedic infections ,underlying severe aortic stenosis. Troponins as noted are elevated but flat, EKG suggests septal infarct however echocardiogram reveals apical ballooning wall motion abnormality question ischemic versus likely stress mediated Patient already anticoagulated orally Urine and blood cultures positive for E. 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 Patient on appropriate beta-sheryl therapy Would continue to hold valsartan. Carvedilol switch to metoprolol succinate Patient will require diagnostic cardiac catheterization in future as part of evaluation of aortic valve disease, scheduled appointment with cardiology on 07/07/2020 (3) Diarrhea: (4) Elevated troponin: (5) Aortic stenosis, severe: Patient scheduled for outpatient follow-up on 07/07/2020 will begin to process towards evaluation for elective surgical procedure versus TAVR (6) Factor V Leiden mutation: [place] filter in place Patient on full anticoagulation with warfarin Admission and Anticipated Discharge Date Admission Date: June 21, 2020 Subjective Patient seen and examined, chart, medications, telemetry reviewed. No chest pains or shortness of breath. No tachypalpitations or dizziness. No significant activity in hospital but patient at home wheelchair-bound due to nonfunctional left hip Physical Exam Constitutional: + morbidly obese Eyes: PERRL, conjunctivae normal, anicteric sclerae ENMT: Mallampati Class: II Neck: trachea midline, no thyromegaly Respiratory: normal respiratory effort, lungs clear to auscultation Cardiovascular: Rate/Rhythm: regular rate and regular rhythm Heart Sounds: normal S1 and + murmur; + abnormal S2 (Diminished) and no gallop Palpation: no heave Vessels: no JVD Extremities: no edema Gastrointestinal (Abdomen): normal bowel sounds, soft, nontender, no hepatosplenomegaly Musculoskeletal: no cyanosis or clubbing, extremities motor strength 5/5 Neurologic: PERRL, EOMI, accommodation nl, no face palsy, no dysarthria Psychiatric: A+Ox3, euthymic affect Results & Data ([facility]) Vital Signs (Past 12 Hours) Vital Signs Temp Pulse Resp BP Pulse Ox 06/27/20 11:28 36.5 C 76 20 98/66 L 98 06/27/20 07:04 36.4 C L 72 19 104/68 97 06/27/20 03:01 36.5 C 69 20 104/67 96 Laboratory Results Laboratory Results - last 24 hr 06/26/20 06/26/20 06/27/20 16:13 20:14 07:13 PT 20.9 H INR 2.1 H POC Glucose 174 H 133 H Stl C. diff Tox B Gene 06/27/20 06/27/20 06/27/20 07:24 08:45 11:27 PT INR POC Glucose 81 97 Stl C. diff Tox B Gene Negative Cdiff Gene (1) Diarrhea Diarrhea type: unspecified type Qualified Code(s): R19.7 - Diarrhea, unspecified
[2020-06-27] MEDS: OXYCODONE HCL IR 5 MG TAB (IMMEDIATE RELEASE) PO PRN ×2 (14:55→19:38)
[2020-06-27] MEDS: WARFARIN SOD 2 MG TAB PO SCH (17:03)
--- NOTE | 2020-06-27 17:47 | Hospitalist Progress Note ---
Date of Service June 27, 2020 Assessment & Plan (1) Left ureteral calculus: (2) Hydronephrosis, left: Present on admission with abdominal pain and diarrhea CT abd/pelvis showed 18 mm obstructing calculus in the left proximal ureter. This causes moderate left-sided hydroureteronephrosis. Urology on board S/P day#4 cysto, Left retrograde pyelogram and Left stent placement. [facility] Ok from urology standpoint to discharge home (3) Acute UTI: Sepsis r/o since pt is afebrile, no tachycardia with normal respiratory rate UA positive for leukocytes and nitrites and bacteria Urine cx positive for gram negative baccili Received IV Rocephin in the ER On Cefepime and flagyl currently Urine cx and blood cx grew Ecoli Daptomycin discontinued Cefepime changed to Rocephin IV Case discussed with YARELI Wagner that recommended to transition to PO Bactrim DS on discharge to complete a total 14 days course from 06/23 (4) Bacteremia due to Gram-negative bacteria: Blood cx positive for gram negative bacilli - Ecoli IV Cefepime IV changed to rocephin Repeat blood cx collected on 06/23 showed no growth RAHUL done today showed no vegetation ID at [facility] contacted about final axb course on discharge Case discussed with ID Dr. Wagner in [place] that recommended to transition to PO Bactrim to complete 14 days course (5) Non-ST elevation [place] (NSTEMI): Mostly related to acute illness Troponin on admission 3.35, then slightly decreased to 3.15 -->3.12 EKG showed no acute ischemic changes Cardiology on board Echo showed moderate concentric left ventricular hypertrophy. There was focal ballooning severe hypokinesis of the apex with ejection fraction 45 to 50%. Severe calcific aortic valve stenosis. Moderate to severe mitral annular calcification. No aspirin due to GI bleed INR 2.1 today Continue statin and carvedilol GI bleed Abdominal pain Diarrhea CT abd/pelvis showed mild diverticulosis of the remaining colon without CT evidence of acute diverticulitis. There is no bowel obstruction. Stools for Cdiff did not collect yet since diarrhea improves Continue Cefepime and Flagyl FOBT negative Continue coumadin Hgb stable at 10.8 Monitor CBC Factor V Leiden mutation Hx DVT and PE S/P IVC filter Coumadin was held for possible GI bleed as pt reported, but FOBT negative INR 2.1 today Continue coumadin Follow up with the [facility] HTN BP stable Continue to hold spironolactone, furosemide and Valsartan Continue monitor BP closely Severe Aortic Stenosis RAHUL done today showed moderate concentric left ventricular hypertrophy. Moderate apical wall hypokinesis. Aortic valve is trileaflet. Severe calcific aortic valve stenosis. Ejection fraction 50 to 55%. cardiology on board Will need surgical evaluation for aortic valve replacement versus TAVR likely next 6 months time as per cardiology Ok from cardiology standpoint to discharge home Right Lower extremity swelling/Erythema Doppler of LE extremity showed no evidence of DVT Continue monitor Anxiety Continue Bupropion Stable Diarrhea Possible related to abx Stools for Cdiff negative Loperamide added PRN Monitor electrolytes DVT px On coumadin INR 2.1 today CODE STATUS FULL CODE Disposition Possible discharge home tomorrow if diarrhea improves Will transfer to Medical Admission and Anticipated Discharge Date Admission Date: June 21, 2020 Subjective Pt was seen and examined Lying in bed with no distress Pt said that she feels fine She would like to go home today, but she is having recurrent episode diarrhea She said that she had more than 6 episodes of diarrhea today Denies any abdominal pain, SOB, dizziness and SOB Physical Exam Physical Exam: General- No acute distress Head- atraumatic Eyes- PERRL, EOMI, ENT- oropharynx clear Neck- supple, no JVD Lungs- diminished BS Heart- regular rhythm; +systolic murmur Abdomen- normal bowel sounds, soft Extremities- no calf tenderness, +edema Neuro- alert, oriented x 3; PERRL, EOMI; no facial palsy; no dysarthria Skin- warm & dry Results & Data Results & Data ([facility]) Vital Signs (Past 12 Hours) Vital Signs Temp Pulse Resp BP Pulse Ox 06/27/20 15:27 36.9 C 74 18 107/70 98 06/27/20 11:28 36.5 C 76 20 98/66 L 98 06/27/20 07:04 36.4 C L 72 19 104/68 97
[2020-06-27] MEDS: cefTRIAXone SODIUM 2,000 MG in DEXTROSE 5% 50 ML IV SCH (21:13)
[2020-06-27] MEDS: DULOXETINE HCL 20 MG CAP PO SCH (21:14)
[2020-06-27] MEDS: ATORVASTATIN 40 MG TAB PO SCH (21:16)
[2020-06-28] MEDS: metroNIDAZOLE 500 MG/100 ML BAG IV SCH ×2 (00:01→09:04)
[2020-06-28] MEDS: BuPROPion SR 100 MG TABCR PO SCH ×2 (06:28→13:53)
[2020-06-28 06:40] LABS: Hematocrit (blood only) 36.2 % (37-47); Hemoglobin 11.5 g/dL (12.0-16.0); Mean Corpuscular Hemoglobin 30.7 pg (25-34); Mean Corpuscular Hgb Conc 31.8 g/dL (32-36); Mean Corpuscular Volume 96.5 fL (80-100); Mean Platelet Volume 10.4 fL (7.4-10.4); Platelet Count 260 K/uL (130-400); RDW Standard Deviation 52.6 fL (36.4-46.3); Red Blood Count 3.75 M/uL (4.2-5.4); White Blood Count 7.26 K/uL (4.8-10.8)
[2020-06-28 06:49] LABS: INR 2.1 (0.9-1.1); Prothrombin Time 21.1 Seconds (9.0-12.0)
[2020-06-28 07:08] LABS: Calcium 7.6 mg/dl (8.5-10.1); Creatinine Clr Calc Pharmacy 72.7 ml/min; Est GFR (African American) 82.3; Magnesium 1.8 mg/dl (1.8-2.4); Potassium 3.8 mmol/L (3.5-5.1)
[2020-06-28] MEDS ORDERED: ACETAMINOPHEN 325 MG TAB PO PRN (07:27)
[2020-06-28] MEDS ORDERED: MAGNESIUM SULFATE / D5W 1 GM/100 ML BAG IV SCH (07:45)
[2020-06-28 08:18] VITALS: O2SAT 95
[2020-06-28] MEDS ORDERED: MAGNESIUM OXIDE 400 MG TAB PO SCH (09:00)
[2020-06-28] MEDS: PANTOprazole 40 MG TAB PO SCH (09:11)
[2020-06-28] MEDS: FLINTSTONES COMPLETE CHEWABLE TAB PO SCH (09:11)
[2020-06-28] MEDS: LACTOBACILLUS ACIDOPHILUS (FLORANEX) TAB PO SCH (09:11)
[2020-06-28] MEDS: carvediloL 3.125 MG TAB PO SCH (09:12)
[2020-06-28] MEDS: CALCIUM 600MG + VIT D 400 IU TAB PO SCH (09:13)
[2020-06-28] MEDS: CHOLECALCIFEROL 1,000 UNITS 25 MCG TAB PO SCH (09:13)
[2020-06-28] MEDS: METOPROLOL SUCC 25MG EXT REL TAB PO SCH ×2 (09:14→15:59)
[2020-06-28] MEDS: SPIRONOLACTONE 25 MG TAB PO SCH (09:14)
[2020-06-28] MEDS: ASCORBIC ACID 500 MG TAB PO SCH (09:15)
[2020-06-28] MEDS: POTASSIUM CHLORIDE 20 MEQ TABCR PO SCH (09:16)
[2020-06-28] MEDS: FUROSEMIDE 20 MG TAB PO SCH (09:19)
[2020-06-28] MEDS: allopurinoL 100 MG TAB PO SCH (09:26)
[2020-06-28] MEDS: VALSARTAN 80 MG TAB PO SCH (09:26)
[2020-06-28] MEDS: OXYBUTYNIN CHLORIDE 5 MG TAB PO SCH (09:27)
--- NOTE | 2020-06-28 12:12 | Urology Progress Note ---
Date of Service June 28, 2020 Assessment & Plan (1) Kidney stone on left side: (2) Bacteremia due to Gram-negative bacteria: ok for discharge on antibiotic from gu Point of view on oral antibiotics follow up with urology next 1 to 2 weeks fto schedule ureteroscopy as outpatient Admission and Anticipated Discharge Date Admission Date: June 21, 2020 Subjective Pt feeling well from urologic point of view .Spoke with Dr. Stroud pt cleared for outpatient ureteroscopy in several weeks . She needs to come in to urology to set up date . Would stay on bactrim or keflex 250 q6 per culture as outpatient for 2 weeks Results & Data ([facility]) Vital Signs (Past 12 Hours) Vital Signs Temp Pulse Resp BP Pulse Ox 06/28/20 08:17 36.6 C 72 14 111/70 95 PG Care Time/CCT Total # of Minutes Spent Total Time Spent with Patient: Total time spent is greater than 50% in coordination of care (as documented) at patient's floor/unit and/or counseling patient: Coding Level of Care Code 67524 Subseq Hosp Care Lvl 1 Diagnoses Kidney stone on left side N20.0 Bacteremia due to Gram-negative bacteria R78.81
--- NOTE | 2020-06-28 12:18 | Hospitalist Progress Note ---
Date of Service June 28, 2020 Assessment & Plan (1) Left ureteral calculus: (2) Hydronephrosis, left: -Present on admission with abdominal pain and diarrhea -admission CT abd/pelvis showed 18 mm obstructing calculus in the left proximal ureter. This causes moderate left-sided hydroureteronephrosis. -Patient had left ureteral stent placed by Dr. Chad Pabon on 06/24/2020 and patient will need to follow up with [facility] [address] [place] [address], [place] [address] on outpatient basis in regard to future management of the left ureteral stent (3) Acute UTI: -Urine and blood cultures positive for E. coli, pansensitive. Patient responded to treatment for sepsis. Transesophageal echocardiogram did not demonstrate significant valvular vegetation or infection. Patient will require repeat blood cultures post completion of antibiotics -Received IV Rocephin in the ER, then on Cefepime and dapotmycin and metronidazole, then ceftriaxone and metronidazole -Case discussed with YARELI Wagner that recommended to transition to PO Bactrim DS on discharge to complete a total 14 days course from 06/23 (4) Bacteremia due to Gram-negative bacteria: Bacteremia due to Gram negative bacteria (E.coli in blood cultures) - management as above discharge medications sent electronically to [facility] [address] [facility], [place] [address] of metoprolol 12.5 mg twice a day (do not take the home dose carvedilol while on metoprolol) magnesium oxide 400 mg daily for 10 days loperamide 2 mg every 6 hours as needed for loose stools (20 tablets) prescribed Bactrim DS on discharge to complete a total 14 days course of antibiotics from 06/23/2020 (bactrim to be completed as last day on 07/07/2020) INR is 2.1 on 06/28/2020. Because bactrim can affect INR, patient should have INR checked by outpatient doctors Urine and blood cultures positive for E. coli, pansensitive. Patient responded to treatment for sepsis. Transesophageal echocardiogram did not demonstrate significant valvular vegetation or infection. Patient will require repeat blood cultures post completion of antibiotics upcoming appointments 07/03/2020 3:00 PM Provider Sadi Shea DO Department General Internal Medicine [facility] Patient will require diagnostic cardiac catheterization in future as part of evaluation of aortic valve disease, scheduled appointment with cardiology on 07/07/2020 1:30 PM Provider Michael Bui PA-C Department Cardiology, [facility] 07/25/2020 1:00 PM Provider Sadi Shea DO Department General Internal Medicine [facility] 08/01/2020 12:00 PM Provider [facility]rese [facility]/10/2020 11:30 AM Provider Neida Elias DO Department Endocrinology, [place] (5) Non-ST elevation [place] (NSTEMI): Apical ballooning syndrome with elevated troponin, Non-ST elevation [place] was suspected Severe Aortic Stenosis -Troponin on admission 3.35, then slightly decreased to 3.15 -->3.12; Echo showed moderate concentric left ventricular hypertrophy. There was focal ballooning severe hypokinesis of the apex with ejection fraction 45 to 50%. -as per cardiology 06/27/2020 "Only mild left ventricular dysfunction and suspect stress mediated etiology rather than acute ischemic event. Carvedilol switch to metoprolol succinate" -Severe calcific aortic valve stenosis. Moderate to severe mitral annular calcification; Patient will require diagnostic cardiac catheterization in future as part of evaluation of aortic valve disease, scheduled appointment with cardiology on 07/07/2020 1:30 PM Provider Michael Bui PA-C Department Cardiology, [facility] Hypertension -blood pressure stable with metoprolol, valsartan, spironolactone, furosemide -patient to be on scheduled oral magnesium after IV magnesium given on 06/28/2020 Factor V Leiden mutation -Hx DVT and PE and S/P IVC filter -on coumadin continue Right Lower extremity swelling/Erythema -Doppler of LE extremity showed no evidence of DVT Anemia GI bleed ruled out -CT abd/pelvis showed mild diverticulosis of the remaining colon without CT evidence of acute diverticulitis. There is no bowel obstruction. -FOBT negative -Hgb stable above 10 Diarrhea -Stools for Cdiff negative -Loperamide added PRN Anxiety -Continue home dose Bupropion CODE STATUS FULL CODE Admission and Anticipated Discharge Date Admission Date: June 21, 2020 Subjective Patient reports some diarrhea. but she wishes to be discharged to home. she reports her immobility is baseline. she can raise her right leg but not her left leg which is baseline for her. she reports that she lives with son and that she can trasnfer herself to electric wheel chair/scooter at home. Review of Systems Review of Systems: All systems reviewed & are unremarkable except as noted in Subjective Physical Exam Constitutional: comfortable Eyes: PERRL, conjunctivae normal, anicteric sclerae EOM intact bilaterally ENMT: external ear and nose normal, oropharynx normal Neck: trachea midline, no thyromegaly Respiratory: normal respiratory effort, lungs clear to auscultation Cardiovascular: Rate/Rhythm: regular rate Heart Sounds: + murmur Gastrointestinal (Abdomen): normal bowel sounds, soft, nontender, no hepatosplenomegaly Musculoskeletal: Head/Neck/Chest: normocephalic and head atraumatic Neurologic: PERRL, EOMI, accommodation nl, no face palsy, no dysarthria (patient generally bedbound, she reports she can transfer motor wheelchair) Psychiatric: A+Ox3, euthymic affect Results & Data Results & Data ([facility]) Vital Signs (Past 12 Hours) Vital Signs Temp Pulse Resp BP Pulse Ox 06/28/20 08:17 36.6 C 72 14 111/70 95
--- NOTE | 2020-06-28 12:36 | Discharge Summary ---
Date of Service June 28, 2020 Admission HPI Per Admitting Provider History obtained from patient and records. 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 Last confinement January 2012 for complicated UTI. Cultures grew Morganella morganii and Enterococcus. Yesterday patient noted gassy lower abdominal discomfort with bloody diarrhea symptoms and dysuria symptoms. Fever, chills at home. Patient denies chest pain, cough, S OB. Right leg more swollen than usual as per patient. At the ER, patient received ceftriaxone for sepsis. Medical History as above 2019 colonoscopy showed sigmoid diverticulosis and internal hemorrhoids. 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 Principal Diagnosis Left ureteral calculus Hydronephrosis, left Acute Urinary tract infection Bacteremia due to Gram-negative bacteria (E.coli) Diarrhea Apical ballooning syndrome with elevated troponin, Non-ST elevation OR was suspected Severe Aortic Stenosis Hypertension Factor V Leiden mutation Discharge Exam Constitutional comfortable Eyes PERRL, conjunctivae normal, anicteric sclerae EOM intact bilaterally ENMT external ear and nose normal, oropharynx normal Neck trachea midline, no thyromegaly Respiratory normal respiratory effort, lungs clear to auscultation Cardiovascular Rate/Rhythm: regular rate Heart Sounds: + murmur Gastrointestinal (Abdomen) normal bowel sounds, soft, nontender, no hepatosplenomegaly Musculoskeletal Head/Neck/Chest: normocephalic and head atraumatic Neurologic PERRL, EOMI, accommodation nl, no face palsy, no dysarthria (patient generally bedbound, she reports she can transfer motor wheelchair) Psychiatric A+Ox3, euthymic affect Discharge Data Allergies Allergy/AdvReac Type Severity Reaction Status Date / Time adhesive Allergy Intermediate BLISTERS Verified 06/21/20 22:26 WITH STERI-STRIPS Iodinated Contrast Media Allergy Intermediate hive Verified 06/21/20 22:26 [Iodinated Contrast- Oral and IV Dye] naproxen Allergy Intermediate SWELLING - Verified 06/21/20 22:26 TOLERATES ESTEVES-[address] HALL ciprofloxacin Allergy Mild RASH Verified 06/21/20 22:26 Quinolones Allergy Mild NEUROLOGIC Verified 06/21/20 22:26 SYMPTOMS Cipro Allergy Unknown RASH Verified 02/05/17 10:40 Consultations 06/21/20 22:43 ED Decision to Admit Stat 06/22/20 02:27 Consult Urology Routine 06/22/20 07:55 Consult Cardiology Routine Procedures Performed Operation Date: 06/23/20 17:15 Actual Procedures p Cystoscopy, Left Retrograde Pyelogram, stent placement(Left) - Chad nava MD Operation Date: 06/26/20 09:30 Actual Procedures p Echo Transesophageal - Joaquin Stroud MD s Echo Color Flow - Joaquin Stroud MD s Echo Doppler Complete - Joaquin Stroud MD Ordered Studies 06/21/20 20:54 CT abd pelvis wo con Stat 06/22/20 00:00 US venous doppler LE RT Urgent 06/23/20 13:30 FL retrograde includes kub Routine Hospital Course (1) Left ureteral calculus: (2) Hydronephrosis, left: -Present on admission with abdominal pain and diarrhea -admission CT abd/pelvis showed 18 mm obstructing calculus in the left proximal ureter. This causes moderate left-sided hydroureteronephrosis. -Patient had left ureteral stent placed by Dr. Chad Pabon on 06/24/2020 and patient will need to follow up with [facility] [address] [place] [address] Dr, [place], [place] [id number] on outpatient basis in regard to future management of the left ureteral stent (3) Acute UTI: -Urine and blood cultures positive for E. coli, pansensitive. Patient responded to treatment for sepsis. Transesophageal echocardiogram did not demonstrate significant valvular vegetation or infection. Patient will require repeat blood cultures post completion of antibiotics -Received IV Rocephin in the ER, then on Cefepime and dapotmycin and metronidazole, then ceftriaxone and metronidazole -Case discussed with YARELI Wagner that recommended to transition to PO Bactrim DS on discharge to complete a total 14 days course from 06/23 (4) Bacteremia due to Gram-negative bacteria: Bacteremia due to Gram negative bacteria (E.coli in blood cultures) - management as above discharge medications sent electronically to [facility] [address] [place] [facility] [place] [address] of metoprolol 12.5 mg twice a day (do not take the home dose carvedilol while on metoprolol) magnesium oxide 400 mg daily for 10 days loperamide 2 mg every 6 hours as needed for loose stools (20 tablets) prescribed Bactrim DS on discharge to complete a total 14 days course of antibiotics from 06/23/2020 (bactrim to be completed as last day on 07/07/2020) INR is 2.1 on 06/28/2020. Because bactrim can affect INR, patient should have INR checked by outpatient doctors Urine and blood cultures positive for E. coli, pansensitive. Patient responded to treatment for sepsis. Transesophageal echocardiogram did not demonstrate significant valvular vegetation or infection. Patient will require repeat blood cultures post completion of antibiotics upcoming appointments 07/03/2020 3:00 PM Provider Sadi Shea DO Department General Internal Medicine [facility] Patient will require diagnostic cardiac catheterization in future as part of evaluation of aortic valve disease, scheduled appointment with cardiology on 07/07/2020 1:30 PM Provider Michael Bui PA-C Department Cardiology, [facility] 07/25/2020 1:00 PM Provider Sadi Shea DO Department General Internal Medicine [facility] 08/01/2020 12:00 PM Provider Tyrese Baker [facility]-C [facility] 08/10/2020 11:30 AM Provider Neida Elias DO Department Endocrinology, [place] (5) Non-ST elevation OR (NSTEMI): Apical ballooning syndrome with elevated troponin, Non-ST elevation OR was suspected Severe Aortic Stenosis -Troponin on admission 3.35, then slightly decreased to 3.15 -->3.12; Echo showed moderate concentric left ventricular hypertrophy. There was focal ballooning severe hypokinesis of the apex with ejection fraction 45 to 50%. -as per cardiology 06/27/2020 "Only mild left ventricular dysfunction and suspect stress mediated etiology rather than acute ischemic event. Carvedilol switch to metoprolol succinate" -Severe calcific aortic valve stenosis. Moderate to severe mitral annular calcification; Patient will require diagnostic cardiac catheterization in future as part of evaluation of aortic valve disease, scheduled appointment with cardiology on 07/07/2020 1:30 PM Provider Michael Bui PA-C Department Cardiology, [facility] Hypertension -blood pressure stable with metoprolol, valsartan, spironolactone, furosemide -patient to be on scheduled oral magnesium after IV magnesium given on 06/28/2020 Factor V Leiden mutation -Hx DVT and PE and S/P IVC filter -on coumadin continue Right Lower extremity swelling/Erythema -Doppler of LE extremity showed no evidence of DVT Anemia GI bleed ruled out -CT abd/pelvis showed mild diverticulosis of the remaining colon without CT evidence of acute diverticulitis. There is no bowel obstruction. -FOBT negative -Hgb stable above 10 Diarrhea -Stools for Cdiff negative -Loperamide added PRN Anxiety -Continue home dose Bupropion CODE STATUS FULL CODE Total Time Total Time Spent Total Time Spent (In Minutes): 40 minutes Total Time Includes: Examination of the Patient, Discharge Planning, Medication Reconciliation and Communication With Other Providers Discharge Plan Discharge Items Patient Disposition: Home - Self-Care Reason For Visit: DEPSIS, NSTEMI Discharge Diagnosis: Left ureteral calculus Hydronephrosis, left Acute Urinary tract infection Bacteremia due to Gram-negative bacteria (E.coli) Diarrhea Apical ballooning syndrome with elevated troponin, Non-ST elevation OR was suspected Severe Aortic Stenosis Hypertension Factor V Leiden mutation Condition on Discharge: Good Activity: Resume your previous activity Non-emergency contact: Primary Care Provider and 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 Box Operator Call non-emergency contact if: you have any medication questions Follow-up/Referrals: Sadi Shea DO [Primary Care Provider] - 07/03/20 3:00 pm (Date & Time 07/03/2020 3:00 PM Provider Sadi Shea DO Department General Internal Medicine [facility] ) Diet: Heart Healthy Add Attending Provider Instructions: discharge medications sent electronically to [facility] [address] [place] [facility] [place] [address] of metoprolol 12.5 mg twice a day (do not take the home dose carvedilol while on metoprolol) magnesium oxide 400 mg daily for 10 days loperamide 2 mg every 6 hours as needed for loose stools (20 tablets) prescribed Bactrim DS on discharge to complete a total 14 days course of antibiotics from 06/23/2020 (bactrim to be completed as last day on 07/07/2020) INR is 2.1 on 06/28/2020. Because bactrim can affect INR, patient should have INR checked by outpatient doctors Urine and blood cultures positive for E. coli, pansensitive. Patient responded to treatment for sepsis. Transesophageal echocardiogram did not demonstrate significant valvular vegetation or infection. Patient will require repeat blood cultures post completion of antibiotics upcoming appointments 07/03/2020 3:00 PM Provider Sadi Shea DO Department General Internal Medicine [facility] Patient will require diagnostic cardiac catheterization in future as part of evaluation of aortic valve disease, scheduled appointment with cardiology on 07/07/2020 1:30 PM Provider Michael Bui PA-C Department Cardiology, [facility] 07/25/2020 1:00 PM Provider Sadi Shea DO Department General Internal Medicine [facility] 08/01/2020 12:00 PM Provider Tyrese Baker PA-C Department Gynecology/Oncology, [place] 08/10/2020 11:30 AM Provider Neida Elias DO Department Endocrinology, [facility] Material Flow Analyst Provider Instructions: Patient had left ureteral stent placed by Dr. Chad Pabon on 06/24/2020 and patient will need to follow up with [facility] [address] [place] [address], [place], [place] [id number] on outpatient basis in regard to future management of the left ureteral stent in next 1 to 2 weeks for schedule ureteroscopy as outpatient Pending Studies at Discharge: No Stand-Alone Forms: [email or web address], Smoking Cessation Medications and DC Order Prescriptions: New loperamide 2 mg Capsule 2 mg PO Q6H PRN (Reason: loose stool) 5 Days Qty: 20 RF: 0 magnesium oxide 400 mg (241.3 mg magnesium) Tablet 400 mg PO QAM 10 Days Qty: 10 RF: 0 metoprolol succinate 25 mg Tablet Extended Release 24 Hr 12.5 mg PO BID17 30 Days Qty: 15 RF: 0 Continued Flintstones Complete Tablet,Chewable 1 tab PO BID RF: 0 calcium carbonate [Tums Extra Strength Smoothies] 300 mg (750 mg) Tablet,Chewable 750 mg PO UD PRN (Reason: Heartburn) RF: 0 spironolactone 25 mg Tablet 25 mg PO QAM RF: 0 omeprazole 20 mg Tablet,Delayed Release (Dr/Ec) 20 mg PO QAM RF: 0 nystatin 100,000 unit/gram powder 1 appln TOP BID PRN (Reason: rash) RF: 0 atorvastatin 40 mg Tablet 40 mg PO PM RF: 0 valsartan 320 mg Tablet 320 mg PO QAM RF: 0 furosemide 20 mg Tablet 20 mg PO QAM RF: 0 oxybutynin chloride 5 mg Tablet 5 mg PO BID RF: 0 bupropion HCl 200 mg Tablet Sustained-Release 12 Hr 200 mg PO BID RF: 0 cholecalciferol (vitamin D3) [Vitamin D3] 50 mcg (2,000 unit) Tablet 2,000 unit PO QAM RF: 0 calcium carbonate-vitamin D3 [Calcium 600 with Vitamin D3] 600 mg(1,500mg) - 500 unit Capsule 1 cap PO BID RF: 0 oxycodone [Roxicodone] 5 mg Tablet 5 mg PO Q4 PRN (Reason: Pain) RF: 0 buspirone 5 mg Tablet 5 mg PO TID RF: 0 ascorbic acid (vitamin C) [Vitamin C] 250 mg Tablet 250 mg PO BID RF: 0 ondansetron 4 mg Tablet,Disintegrating 4 mg PO Q8H PRN (Reason: Nausea) RF: 0 allopurinol 100 mg Tablet 100 mg PO BID RF: 0 duloxetine [Cymbalta] 20 mg Capsule,Delayed Release(Dr/Ec) 40 mg PO HS RF: 0 cyanocobalamin (vitamin B-12) 1,000 mcg/mL Kit 1,000 mcg IM UD RF: 0 docusate sodium 100 mg capsule 100 mg PO BID PRN (Reason: constipation) RF: 0 potassium chloride [K-Tab] 10 mEq tablet extended release 20 meq PO DAILY RF: 0 Probiotic 3 billion cell Capsule 3,000 mmu cells PO DAILY RF: 0 warfarin 4 mg tablet 4 mg PO 5XWK RF: 0 warfarin 4 mg tablet 2 mg PO .Q TUES & FRI RF: 0 Discontinued acetaminophen 325 mg Tablet 650 mg PO Q4 PRN (Reason: Pain) RF: 0 carvedilol 3.125 mg Tablet 3.125 mg PO BID RF: 0 diphenoxylate-atropine [Lomotil] 2.5-0.025 mg tablet 0 tab PO Q6H MDD 8 tablets (20 mg) PRN (Reason: diarrhea) RF: 0 Discharge Orders: Discharge Order (Routine); Ordered 06/28/20 Ordered By: Ten Cho Admission Data Admit Date/Time: 06/21/20 23:59 Attending Provider: Ten Cho Admit Provider: Biju Zhao Primary Care Provider: Sadi Shea Other Providers: Biju Zhao ; Chad Pabon ; Cem Holguin ; Vasile Arauz I. ; Crispin Sanchez ; Kathelen Arce ; Yvette Zhao ; Albert Castellanos ; Dilcia Porter ; Chandni Anand ; Omar Joshi ; Mary Mejia ; Joaquin Stroud
[2020-06-28] MEDS: OXYCODONE HCL IR 5 MG TAB (IMMEDIATE RELEASE) PO PRN (13:54)
[2020-06-28 15:26] VITALS: BP 114/69; PULSE 78; TEMP 98.6
[2020-06-28] MEDS: WARFARIN SOD 4 MG TAB PO SCH (15:59)
[2020-06-28] MEDS ORDERED: SULFAMETHOXAZOLE/TRIMETHOPRIM DS 800/160MG TAB PO SCH (21:00)
== END 2020-06-28 16:35 | disposition home or self-care (01) | DRG 871 ==
LOC: ED 19:55 → 2S 23:59 → SUATTDRO 23:59 → 2S 06-22 01:03 → 3W 06-27 22:13

== ENCOUNTER 2020-08-01 07:13 | Inpatient (IN) ==
--- NOTE | 2020-08-01 08:42 | XRay Report ---
XR chest 1V portable HISTORY: 74 years-old Female Chest Pain acute atypical chest pain COMPARISON: Chest radiograph 06/21/2020 TECHNIQUE: Portable AP view of the chest FINDINGS: Cardiac silhouette is mildly enlarged. Chronic interstitial coarsening of the lung bases. Calcified p laque of the thoracic aortic arch. No pneumothorax, pleural effusion, overt pulmonary edema or airspa ce consolidation typical for pneumonia. Sigmoidal thoracolumbar scoliosis. Severe osteoarthritis of t he right glenohumeral joint with loose bodies of the subscapularis and axillary recesses. Reverse lef t shoulder total joint arthroplasty. Remote left clavicular fracture deformity. Loose bodies of the r ight subscapularis recess. Hiatal hernia. IMPRESSION: No acute process. ACT 112: Negative or not required by law. The above report was generated using voice recognition software. It may contain grammatical, syntax o r spelling errors. Electronically signed by: Ezequiel Denise M.D. 08/01/2020 8:41 AM
[2020-08-01 08:53] LABS: Basophils # (auto) 0.02 K/uL (0-0.2); Basophils % (auto) 0.2 %; Eosinophils # (auto) 0.14 K/uL (0-0.5); Eosinophils % (auto) 1.4 %; Hematocrit (blood only) 34.6 % (37-47); Hemoglobin 10.9 g/dL (12.0-16.0); Immature Granulocytes # (auto) 0.02 K/uL (0.00-0.02); Immature Granulocytes % (auto) 0.2 %; Lymphocytes # (auto) 0.87 K/uL (1.2-3.4); Mean Corpuscular Hemoglobin 30.6 pg (25-34); Mean Corpuscular Hgb Conc 31.5 g/dL (32-36); Mean Corpuscular Volume 97.2 fL (80-100); Mean Platelet Volume 10.4 fL (7.4-10.4); Monocytes # (auto) 0.47 K/uL (0.11-0.59); Monocytes % (auto) 4.9 %; Neutrophils # (auto) 8.17 K/uL (1.4-6.5); Neutrophils % (auto) 84.3 %; Platelet Count 277 K/uL (130-400); RDW Coefficient of Variation 16.3 % (11.5-14.5); RDW Standard Deviation 57.8 fL (36.4-46.3); Red Blood Count 3.56 M/uL (4.2-5.4); White Blood Count 9.69 K/uL (4.8-10.8)
[2020-08-01 09:03] LABS: INR 2.3 (0.9-1.1); Partial Thromboplastin Ratio 1.1; Partial Thromboplastin Time 31.8 Seconds (21.0-31.0); Prothrombin Time 23.5 Seconds (9.0-12.0)
[2020-08-01 09:10] LABS: Alanine Aminotransferase 35 U/L (12-78); Albumin Level 2.2 gm/dl (3.4-5.0); Aspartate Aminotransferase 30 U/L (15-37); BUN Creatinine Ratio 26.4 (10-20); Blood Urea Nitrogen 22 mg/dl (7-18); Calcium 8.1 mg/dl (8.5-10.1); Carbon Dioxide 29 mmol/L (21-32); Chloride 109 mmol/L (98-107); Est GFR (African American) 81.1; Glucose 80 mg/dl (70-99); Lipase 63 U/L (73-393); Potassium 3.5 mmol/L (3.5-5.1); Sodium 145 mmol/L (136-145)
[2020-08-01 09:15] LABS: Albumin Globulin Ratio 0.7 (0.9-2); Alkaline Phosphatase 102 U/L (45-117); Bilirubin,Total 0.4 mg/dl (0.2-1); Creatine Kinase 51 U/L (26-192); Creatine Kinase MB 1.2 ng/ml (0.5-3.6); NT Pro B Type Natriuretic Pept 6495 pg/ml (0-900); Total Protein 5.2 gm/dl (6.4-8.2); Troponin I 0.022 ng/ml (0-0.045)
[2020-08-01] MEDS ORDERED: PIPERACILLIN/TAZOBACTAM 4.5 GM/120 ML BAG IV ONE (09:23)
[2020-08-01] MEDS ORDERED: FUROSEMIDE 40 MG/4 ML VIAL IV STA (09:23)
[2020-08-01] MEDS ORDERED: PIPERACILL/TAZOBAC CONSULT ACTIVE PRN (09:23)
--- NOTE | 2020-08-01 10:48 | History & Physical Report ---
Date of Service August 01, 2020 Assessment & Plan (1) Acute on chronic heart failure with preserved ejection fraction (HFpEF): This is a 74-year-old female who has significant past medical history of HTN, HLD, severe calcific aortic valve stenosis, factor V Leiden deficiency, history of recurrent DVT, on long-term anticoagulation, history of left prosthetic hip infection now wheelchair-bound, GERD, gout, history of gastric bypass who presents to ED secondary to "I am filling up with fluid since yesterday." Admit to tele Consult cardiology Lasix 40mg IVBID 17 - caution with strict I and O, mccurdy placement (2) Cellulitis of right lower extremity: Erythema and warmth to pretibial aspect of RLE, no fluctuance or abscess formation Nurse to may with skin marker Start IV Ancef and likely transition to oral keflex wound nurse consulted for b/l lower extremity drainage (3) Aortic stenosis, severe: Follows [facility] cardiology recent echo 06/2020 revealed severe calcific (4) BRBPR (bright red blood per rectum): pt c/o BRBPR x several months She had colonoscopy by Dr. Vicente 01/2020 which revealed internal hemorrhoids and sigmoid diverticulosis She notes worsening over the past week and passing, clots H&H stable at 10.9 and 34 point Recently had iron panel on 07/27 iron 52, total saturation 23, TIBC 230, ferritin 3476 (previous ferritin level 11/2019 223.9) Ferritin possibly elevated in setting of acute phase reactant Will follow H&H, repeat at 7 PM if continues/worsens consult GI Continue PPI (5) Dyslipidemia: continue statin (6) Left ureteral stone: Status post cystoscopy, laser treatment and stent exchange on 07/20/[address] Sanchez Patient she is to have a stent removed 08/08 Will obtain renal ultrasound to ensure stent patency (7) Factor V Leiden mutation: History of DVT/PE on long-term anticoagulation INR therapeutic Warfarin home regimen 2 mg Friday and Friday and 4 mg all other days (8) Gout: Continue allopurinol (9) GERD (gastroesophageal reflux disease): Continue PPI (10) Depression with anxiety: Continue Cymbalta, Wellbutrin and BuSpar Mood stable (11) Wheelchair dependence: Secondary to left periprosthetic hip infection status post removal Currently not on any long-term antibiotics (12) DVT prophylaxis: Continue warfarin, INR therapeutic Disposition: Admit to telemetry Follow-up: PCP Dr. Shea upon discharge Patient was seen and examined in collaboration with Dr. Lyman, please see addendum History of Present Illness Chief Complaint: "I am feeling up with fluid since yesterday." Primary Care Provider: Sadi Shea, DO This is a 74-year-old female who has significant past medical history of HTN, HLD, severe calcific aortic valve stenosis, factor V Leiden deficiency, history of recurrent DVT, on long-term anticoagulation, history of left prosthetic hip infection now wheelchair-bound, GERD, gout, history of gastric bypass who presents to ED secondary to "I am filling up with fluid since yesterday." Of significance patient did have surgical procedure for left ureteral stone on 07/20. She underwent cystoscopy with laser destruction and stent placement by Dr. Sanchez. She tolerated the procedure well and is to have stent out 08/08. She states since yesterday she has been filling up with fluid everywhere. She notes increased lower extremity swelling, arm swelling, bloating, early satiety. She also notes decreased urinary frequency and output, increased bright red blood per rectum and passing clots and generalized weakness. She also admits to fluid draining from left leg and increased redness to right lower extremity. At baseline she is wheelchair-bound. She denies any fever, chills, sweats, lightheadedness, dizziness, chest pain, shortness of breath, cough, orthopnea, PND, nausea, vomiting, abdominal pain. She denies any hematuria or dysuria. She follows with [facility] and had a colonoscopy 01/2020. She was found to have internal hemorrhoids and sigmoid diverticulosis. She has been complaining of bright red blood per rectum for the past several weeks but over the past week has noted passing significant bright red blood clots. She also admits to having recent blood work by Dr. Shea stating that her ferritin is very high in the 30 00. She has been compliant with her BiPAP at night. She also is taking 20 mg of Lasix daily. She admits to drinking at least 64 ounces of water for the past week secondary to having her kidney stone. In ED patient remained hemodynamically stable, blood pressure 156/84 upon my evaluation. She is saturating well on room air. She is not in any distress. She is afebrile and WBC is 9.69, H&H stable at 10.9 and 34.6, INR 2.3, K3.5, BUN 22, creatinine 0.83, proBNP 6495. Chest x-ray was negative for acute process. In ED patient did receive IV Zosyn secondary to concern for lower extremity cellulitis as well as 40 mg of IV Lasix. Per ER physician patient was heme positive. Allergies Allergy/AdvReac Type Severity Reaction Status Date / Time adhesive Allergy Intermediate BLISTERS Verified 08/01/20 08:25 WITH STERI-STRIPS Iodinated Contrast Media Allergy Intermediate hive Verified 08/01/20 08:25 [Iodinated Contrast- Oral and IV Dye] naproxen Allergy Intermediate SWELLING - Verified 08/01/20 08:25 TOLERATES ESTEVES-[address] HALL ciprofloxacin Allergy Mild RASH Verified 08/01/20 08:25 Quinolones Allergy Mild NEUROLOGIC Verified 08/01/20 08:25 SYMPTOMS Home Medications Home Medications Medication Instructions Recorded Confirmed Type allopurinol 100 mg PO BID 06/23/19 08/01/20 History ascorbic acid (vitamin C) [Vitamin 250 mg PO BID 06/23/19 08/01/20 History C] buspirone 5 mg PO TID 06/23/19 08/01/20 History cyanocobalamin (vitamin B-12) 1,000 mcg IM UD 06/23/19 08/01/20 History duloxetine [Cymbalta] 40 mg PO HS 06/23/19 08/01/20 History ondansetron 4 mg PO Q8H PRN 06/23/19 08/01/20 History oxycodone [Roxicodone] 5 mg PO Q4 PRN 06/23/19 08/01/20 History Flintstones Complete 1 tab PO BID 08/27/19 08/01/20 History docusate sodium 100 mg capsule 100 mg PO BID PRN 08/30/19 08/01/20 History atorvastatin 40 mg PO PM 12/31/19 08/01/20 History bupropion HCl 200 mg PO BID 12/31/19 08/01/20 History calcium carbonate [Tums Extra 750 mg PO UD PRN 12/31/19 08/01/20 History Strength Smoothies] calcium carbonate-vitamin D3 1 cap PO BID 12/31/19 08/01/20 History [Calcium 600 with Vitamin D3] cholecalciferol (vitamin D3) 2,000 unit PO QAM 12/31/19 08/01/20 History [Vitamin D3] furosemide 20 mg PO QAM 12/31/19 08/01/20 History nystatin 1 appln TOP BID PRN 12/31/19 08/01/20 History omeprazole 20 mg PO QAM 12/31/19 08/01/20 History oxybutynin chloride 5 mg PO BID 12/31/19 08/01/20 History Probiotic 3,000 mmu cells PO QAM 06/21/20 08/01/20 History potassium chloride [K-Tab] 10 meq PO DAILY 06/21/20 08/01/20 History warfarin 4 mg PO SUMOWETHSA 06/21/20 08/01/20 History metoprolol succinate 12.5 mg PO BID 08/01/20 08/01/20 History warfarin 2 mg PO TUFR 08/01/20 08/01/20 History Past Med/Surg History Medical History (Updated 08/01/20 @ 14:40 by Joaquin Stroud MD) Aortic stenosis, severe 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 Per cardiology consult , "Only mild left ventricular dysfunction and suspect stress mediated etiology rather than acute ischemic event. Patient on appropriate beta-sheryl therapy." Arthritis Atrial fibrillation follows with Dr. Bui Carotid artery stenosis [place] , 50%, LICA 50-69% by 04/09/19 doppler Chronic back pain Degenerative disc disease Depression Diverticulitis Dyslipidemia Factor 5 Leiden mutation, heterozygous recurrent PE/DVT; status post IVC filter placement, on Coumadin Frequent UTI GERD (gastroesophageal reflux disease) Gout [place] filter in place History of anxiety History of cellulitis both legs History of COPD mild--inhaler/nebulizer prn History of depression History of esophageal disorder esophageal diverticulum History of obstructive sleep apnea pt wears CPAP History of peripheral neuropathy bilateral feet History of stress incontinence Hx of cancer of uterus diagnosed 03/2019---radiation only Hx of iron deficiency anemia Hypertension Hyperuricemia Intestinal disorder post op malabsorption Non-ST elevation ND (NSTEMI) On anticoagulant therapy warfarin daily Osteoarthritis Pes planus Post traumatic stress disorder Pulmonary embolism hx of bilateral ~2002 2/2 FFL Spinal stenosis Stroke 06/03/2019 after I&D left hip--vision loss in left eye--no neurologist Vision abnormalities r peripheral vision loss( posterior ischemic optic neuropathyleft eye), left side altered vision like looking through a screen door Weakness Wheelchair dependence Surgical History H/O cystoscopy 06/23/20 [facility] History of arthroplasty of left hip 2006 @ [facility]--infected after, multiple sx's History of biopsy of bladder benign History of colonoscopy with polypectomy History of incision and drainage 05/2019 of left hip---wound vac placed (currently still on as of 12/31/2019) History of left hip replacement 03/2019 @ [facility] History of left shoulder replacement History of right hip replacement 2005 @ [facility] History of tonsillectomy and adenoidectomy History of tooth extraction Hx of gastric bypass Hx of tubal ligation Hx of umbilical hernia repair mesh inserted S/P colon resection 1984 @ [facility] complete sigmoid removed d/t diverticular disease Family History Mother , age 91 Heart disease Family hx colonic polyps Father , age 42 Factor V deficiency Myocardial infarction Sister No problems noted. Sister Endometrial cancer Brother Family hx colonic polyps Brother , age 50 Meningitis Brother No problems noted. Brother No problems noted. Son No problems noted. Son No problems noted. Son Colon abnormality Son , in his 30 `s , " girl friend over dosed the patients son " Drug overdose Grandfather (Paternal) Family history of diabetes mellitus Family hx of colon cancer Other No family history of adverse response to anesthesia Social History Smoking Status: Former smoker Age Started Using Tobacco: 22; packs per day: 0.5; Cigarettes Per Day: 10; Second Hand Exposure: Yes (PARENTS SMOKED); Hx Alcohol Use: No Hx Substance Use: No Preferred Language: Scottish Communication Ability: Effective Visual Impairment: No Limitations Hearing Ability: Normal Furniture Sprayer Required: No Beliefs That Will Affect Care: None marital status: / Current Living Situation: Family Current Living Situation Comment: lives with son giovanny) current occupational status: retired 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 Other Information That Helps Us Care for You: No Feels Safe at Home: Yes Safety Concerns: Feels Safe At This Time Assistive Devices: CPAP, Glasses and Wheelchair Review of Systems Review of Systems: All systems reviewed & are unremarkable except as noted in HPI & below Physical Exam Physical Exam: Constitutional: WD/WN, obese, female, vitals as above, NAD, sitting up in bed, pleasant, conversing easily Head: Normocephalic, Atraumatic Eyes: PERRL, conjunctivae normal, anicteric sclerae ENMT: external ear and nose normal, oropharynx normal Neck: trachea midline, no thyromegaly normal visual inspection Respiratory: normal respiratory effort, lungs clear to auscultation, no wheeze, rales, rhonchi. Normal insp/exp effort, no accessory muscle use Cardiovascular: RRR, 3/6 harsh JAMAL best RUSB, bilateral lower extremity pitting edema, right pretibial erythematous and warm to palpation, left pretibial area with clear drainage Vessels: no JVD or carotid bruit Chest: normal inspection of chest Abdomen: Obese abdomen, normal bowel sounds, soft, nontender, no hepatosplenomegaly Musculoskeletal: no cyanosis or clubbing, patient with limited range of motion to left lower extremity otherwise active range of motion x3, strength intact in bilateral lower extremities 5/5 Skin: Right lower extremity pretibial erythema and warmth, warm and dry normal turgor Neurologic: PERRL, EOMI, accommodation nl, no face palsy, no dysarthria CN's II-XI intact bilaterally and moves all extremities Psychiatric: A+Ox3, euthymic affect Lymphatic: no cervical or axillary lymphadenopathy : deferred Results & Data Results & Data ([facility]) Vital Signs (Past 12 Hours) Vital Signs Temp Pulse Pulse Resp BP BP Pulse Ox 08/01/20 10:01 69 18 08/01/20 10:00 82 15 156/84 H 95 08/01/20 09:31 77 19 97 08/01/20 09:30 67 18 134/101 H 95 08/01/20 09:18 64 22 162/63 H 95 08/01/20 09:02 63 17 97 08/01/20 09:01 60 22 162/63 H 99 08/01/20 09:00 64 15 95 08/01/20 08:45 59 L 20 154/64 H 99 08/01/20 08:30 63 08/01/20 08:00 62 142/48 H 08/01/20 07:57 62 22 98 08/01/20 07:36 68 14 96 08/01/20 07:34 64 13 143/87 H 100 08/01/20 07:22 36.8 C 78 20 142/72 H 95 Laboratory Results Short CBC 08/01/20 Range/Units 08:41 WBC 9.69 (4.8-10.8) K/uL Hgb 10.9 L (12.0-16.0) g/dL Hct 34.6 L (37-47) % Plt Count 277 (130-400) K/uL BMP 08/01/20 08:41 Sodium 145 Potassium 3.5 Chloride 109 H Carbon Dioxide 29 BUN 22 H Creatinine 0.83 Glucose 80 Calcium 8.1 L Cardiac Enzymes 08/01/20 Range/Units 08:41 Total Creatine Kinase 51 (26-192) U/L CK-MB (CK-2) 1.2 (0.5-3.6) ng/ml Troponin I 0.022 (0-0.045) ng/ml Liver Function 08/01/20 Range/Units 08:41 Total Bilirubin 0.4 (0.2-1) mg/dl AST 30 (15-37) U/L ALT 35 (12-78) U/L Alkaline Phosphatase 102 (45-117) U/L Albumin 2.2 L (3.4-5.0) gm/dl Diagnostic Findings CXR: negative for acute process. Medications Administered Discontinued Medications Furosemide (Furosemide 40 Mg/4 Ml Vial) 40 mg IV NOW STA Stop: 08/01/20 09:24 Last Admin: 08/01/20 10:53 Dose: 40 mg Documented by: [id number] Piperacillin Sod/Tazobactam Sod (Zosyn) 4.5 gm in 120 mls @ 240 mls/hr IV NOW ONE Stop: 08/01/20 09:52 Last Infusion: 08/01/20 10:42 Dose: 0 mls/hr Documented by: [id number] Admin: 08/01/20 10:01 Dose: 240 mls/hr Documented by: [id number] ECG Rate (beats per minute): 63 Rhythm: normal sinus Code Status & VTE Plan Code Status Full Code VTE Prophylaxis Plan VTE Prophylaxis will be ordered: No Reason for no VTE drug order: Contraindicated (pt on warfarin) Reason for no VTE mechanical prophylaxis: Contraindicated (pt with cellulitis and drainage to LLE) Supervising Physician Co-Signing Physician Notes Attending addendum The patient was seen and examined in medical telemetry unit She is a 74-year-old obese female with significant past medical history as mentioned in H&P including severe calcific aortic valve stenosis has been complaining of bloating due to fluid overload all over She did not have any significant shortness of breath at rest She received intravenous Lasix and has been feeling a lot better since admission Denies any significant symptoms during examination On examination Lying in bed comfortably Hemodynamically stable with blood pressure on the upper side of systolic 157 Chest-clear to auscultate bilaterally Heart-S1-S2, regular with 2/6 systolic murmur over aortic area Abdomen-distended, soft, benign, was not present Extremities-bilateral leg edema about 1-2+ with left mid leg inflammatory palumbo ges Admission labs, EKG and imaging studies reviewed Has acute on chronic heart failure with preserved ejection fraction complicated by severe aortic stenosis Cellulitis of the left leg Status post left ureteric stent placed on of this month Agree with assessment and plan as outlined above by Tricia Lyman
[2020-08-01 11:08] LABS: Appearance Urine Cloudy (Clear); Bacteria Urine Automated Negative (Negative); Bilirubin Urine Negative (Negative); Blood Urine 3+ (Negative); Color Urine Dark Yellow; Epithelial Cell Urine Auto >30 /lpf (0-5); Glucose Urine UA Negative (Negative); Ketones Urine Negative (Negative); Leukocyte Esterase Urine 2+ (Negative); Nitrite Urine Negative (Negative); Protein Urine 1+ (Negative); Urobilinogen Urine Negative (Negative); WBC Urine Automated >30 /hpf (0-5); pH Urine 5.5 (4.5-7.5)
[2020-08-01] MEDS ORDERED: ONDANSETRON INJ 2 MG/ML 2 ML VIAL IV PRN (11:53)
[2020-08-01] MEDS ORDERED: ALUMINUM/MAGNESIUM SUSP 30 ML UDC PO PRN (11:53)
[2020-08-01] MEDS ORDERED: ACETAMINOPHEN 325 MG TAB PO PRN (11:53)
[2020-08-01] MEDS ORDERED: POLYETHYLENE (MIRALAX) 17 GM PACK PO PRN (11:53)
[2020-08-01] MEDS ORDERED: MAGNESIUM HYDROXIDE SUSP 30 ML UDC PO PRN (11:53)
[2020-08-01 11:59] LABS: Amorphous Sediment Urine Present (None Prsent)
[2020-08-01] MEDS ORDERED: CALCIUM CARBONATE 500 MG CHEWABLE TAB PO PRN (12:08)
[2020-08-01] MEDS ORDERED: POTASSIUM CHLORIDE 20 MEQ TABCR PO STA (14:30)
--- NOTE | 2020-08-01 14:30 | Cardiology Consultation ---
Date of Consultation August 01, 2020 Assessment & Plan (1) Acute on chronic heart failure with preserved ejection fraction (HFpEF): Patient is a 74-year-old female with complex underlying issues as noted presents with acute on chronic decompensated right greater than left diastolic heart failure secondary to valvular disease. Symptoms of volume overload and edema possibly worsened by increased volume intake aid in urinary stone passing. Patient initially responding to IV diuretics would continue holding dose after this evening's dose given brisk response. Follow renal function electrolytes closely Medications as prescribed (2) Aortic stenosis, severe: Patient scheduled for valve clinic evaluation August 14 (3) Left ureteral stone: Status post laser lithotripsy. Patient without current complaint, anticipate removal of urinary stent on 08/08/2020 History of Present Illness Reason for Consultation: Volume overload, edema Requesting Physician: Dr. Lyman Attending Physician: Janett Lyman MD History of Present Illness Patient is a 74-year-old female with complex underlying cardiac and noncardiac issues including 1. Chronic diastolic congestive heart failure 2. Severe calcific aortic valve stenosis, peak aortic valve velocity 4.1 m/sec, mean gradient 40 mm Hg June 23, 2020 3. Hypertension, hypertensive heart disease. 4. Apical ballooning LV dysfunction June 2020 stress versus ischemic mediated 5. History of ocular CVA 6. Factor V Leiden mutation, on chronic Coumadin therapy. 7. History of recurrent DVT/pulmonary embolus, [place] filter in place 8. Carotid artery stenosis, moderate 9. Diabetes mellitus with neuropathy 10. Dyslipidemia 11. Chronic left hip prosthetic joint infection, status post prior excisional debridement permanent nonunion, wheelchair-bound 12. Obesity, Status post gastric bypass 13. Iron deficiency anemia secondary to chronic urinary and GI blood loss 14. Obstructive sleep apnea on BiPAP therapy 15. Gout 16. Uterine cancer, status post radiation 17. Acute E coli sepsis secondary to obstructive uropathy/renal lithiasis June 21, 2020 requiring left ureteral stenting for hydronephrosis. 18. Status post laser lithotripsy 07/20/2020 with anticipated ureteral stent removal 08/08/2020 Patient presents now noting "filling up with fluid " over the past 2 days. Patient notes increasing abdominal girth and lower extremity edema. Has been drinking additional fluid to aid in passing of ureteral stone. Notes no fevers chills, chest pain, tachypalpitations, syncope, near syncope. Leg edema substantially worse. Had been taking medications as prescribed. No overt change in dietary sodium indiscretion. Has chronic rectal bleeding attributed to hemorrhoidal bleeding in the past. Patient presented for evaluation he has received 40 mg IV Lasix in the emergency room. Patient had as had already a profound response with nearly 2 L diuresis. Patient feeling improved EKG without acute ischemic changes. Initial troponin negative Allergies Allergy/AdvReac Type Severity Reaction Status Date / Time adhesive Allergy Intermediate BLISTERS Verified 08/01/20 08:25 WITH STERI-STRIPS Iodinated Contrast Media Allergy Intermediate hive Verified 08/01/20 08:25 [Iodinated Contrast- Oral and IV Dye] naproxen Allergy Intermediate SWELLING - Verified 08/01/20 08:25 TOLERATES ESTEVES-[address] HALL ciprofloxacin Allergy Mild RASH Verified 08/01/20 08:25 Quinolones Allergy Mild NEUROLOGIC Verified 08/01/20 08:25 SYMPTOMS Home Medications Home Medications Medication Instructions Recorded Confirmed Type allopurinol 100 mg PO BID 06/23/19 08/01/20 History ascorbic acid (vitamin C) [Vitamin 250 mg PO BID 06/23/19 08/01/20 History C] buspirone 5 mg PO TID 06/23/19 08/01/20 History cyanocobalamin (vitamin B-12) 1,000 mcg IM UD 06/23/19 08/01/20 History duloxetine [Cymbalta] 40 mg PO HS 06/23/19 08/01/20 History ondansetron 4 mg PO Q8H PRN 06/23/19 08/01/20 History oxycodone [Roxicodone] 5 mg PO Q4 PRN 06/23/19 08/01/20 History Flintstones Complete 1 tab PO BID 08/27/19 08/01/20 History docusate sodium 100 mg capsule 100 mg PO BID PRN 08/30/19 08/01/20 History atorvastatin 40 mg PO PM 12/31/19 08/01/20 History bupropion HCl 200 mg PO BID 12/31/19 08/01/20 History calcium carbonate [Tums Extra 750 mg PO UD PRN 12/31/19 08/01/20 History Strength Smoothies] calcium carbonate-vitamin D3 1 cap PO BID 12/31/19 08/01/20 History [Calcium 600 with Vitamin D3] cholecalciferol (vitamin D3) 2,000 unit PO QAM 12/31/19 08/01/20 History [Vitamin D3] furosemide 20 mg PO QAM 12/31/19 08/01/20 History nystatin 1 appln TOP BID PRN 12/31/19 08/01/20 History omeprazole 20 mg PO QAM 12/31/19 08/01/20 History oxybutynin chloride 5 mg PO BID 12/31/19 08/01/20 History Probiotic 3,000 mmu cells PO QAM 06/21/20 08/01/20 History potassium chloride [K-Tab] 10 meq PO DAILY 06/21/20 08/01/20 History warfarin 4 mg PO SUMOWETHSA 06/21/20 08/01/20 History metoprolol succinate 12.5 mg PO BID 08/01/20 08/01/20 History warfarin 2 mg PO TUFR 08/01/20 08/01/20 History Patient History Medical History (Updated 08/01/20 @ 14:40 by Joaquin Stroud MD) Aortic stenosis, severe Apical ballooning syndrome Noted on RAHUL. Per cardiology consult , "Only mild left ventricular dysfunction and suspect stress mediated etiology rather than acute ischemic event. Patient on appropriate beta-sheryl therapy." Arthritis Atrial fibrillation follows with Dr. Bui Carotid artery stenosis [place] , 50%, [place]ICA 50-69% by 04/09/19 doppler Chronic back pain Degenerative disc disease Depression Diverticulitis Dyslipidemia Factor 5 Leiden mutation, heterozygous recurrent PE/DVT; status post IVC filter placement, on Coumadin Frequent UTI GERD (gastroesophageal reflux disease) Gout [place] filter in place History of anxiety History of cellulitis both legs History of COPD mild--inhaler/nebulizer prn History of depression History of esophageal disorder esophageal diverticulum History of obstructive sleep apnea pt wears CPAP History of peripheral neuropathy bilateral feet History of stress incontinence Hx of cancer of uterus diagnosed 03/2019---radiation only Hx of iron deficiency anemia Hypertension Hyperuricemia Intestinal disorder post op malabsorption Non-ST elevation UT (NSTEMI) On anticoagulant therapy warfarin daily Osteoarthritis Pes planus Post traumatic stress disorder Pulmonary embolism hx of bilateral ~12/12 FFL Spinal stenosis Stroke 06/03/2019 after I&D left hip--vision loss in left eye--no neurologist Vision abnormalities r peripheral vision loss( posterior ischemic optic neuropathyleft eye), left side altered vision like looking through a screen door Weakness Wheelchair dependence Surgical History H/O cystoscopy 06/23/20 [facility] History of arthroplasty of left hip 2006 @ [facility]--infected after, multiple sx's History of biopsy of bladder benign History of colonoscopy with polypectomy History of incision and drainage 05/2019 of left hip---wound vac placed (currently still on as of 12/31/2019) History of left hip replacement 03/2019 @ [facility] [place] History of left shoulder replacement History of right hip replacement 2005 @ [facility] History of tonsillectomy and adenoidectomy History of tooth extraction Hx of gastric bypass Hx of tubal ligation Hx of umbilical hernia repair mesh inserted S/P colon resection 1984 @ [facility] complete sigmoid removed d/t diverticular disease Family History Mother , age 91 Heart disease Family hx colonic polyps Father , age 42 Factor V deficiency Myocardial infarction Sister No problems noted. Sister Endometrial cancer Brother Family hx colonic polyps Brother , age 50 Meningitis Brother No problems noted. Brother No problems noted. Son No problems noted. Son No problems noted. Son Colon abnormality Son , in his 30 `s , " girl friend over dosed the patients son " Drug overdose Grandfather (Paternal) Family history of diabetes mellitus Family hx of colon cancer Other No family history of adverse response to anesthesia Social History Smoking Status: Former smoker Age Started Using Tobacco: 22; packs per day: 0.5; Cigarettes Per Day: 10; Second Hand Exposure: Yes (PARENTS SMOKED); Hx Alcohol Use: No Hx Substance Use: No Preferred Language: Mohawk Communication Ability: Effective Visual Impairment: No Limitations Hearing Ability: Normal Content Coordinator Required: No Beliefs That Will Affect Care: None marital status: / Current Living Situation: Family Current Living Situation Comment: lives with son (laurent) current occupational status: retired 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 Other Information That Helps Us Care for You: No Feels Safe at Home: Yes Safety Concerns: Feels Safe At This Time Assistive Devices: CPAP, Glasses and Wheelchair Review of Systems Review of Systems: All systems reviewed & are unremarkable except as noted in HPI & below Physical Exam Constitutional: WD/WN, vitals as above + morbidly obese Eyes: PERRL, conjunctivae normal, anicteric sclerae ENMT: external ear and nose normal, oropharynx normal Neck: trachea midline, no thyromegaly Respiratory: Auscultation: + diminished lung sounds; no rales Cardiovascular: Rate/Rhythm: regular rate and regular rhythm Heart Sounds: normal S1, normal S2 and + murmur (Grade 3/6 harsh systolic murmur); no gallop Palpation: normal PMI Vessels: normal carotid upstroke and radial pulses present; no JVD and no carotid bruit Extremities: + edema (2-3+ lower extremity edema) Gastrointestinal (Abdomen): normal bowel sounds, soft, nontender, no hepatosplenomegaly Musculoskeletal: no cyanosis or clubbing, extremities motor strength 5/5 Skin: Skin breakdown over left and right bella Neurologic: PERRL, EOMI, accommodation nl, no face palsy, no dysarthria Psychiatric: A+Ox3, euthymic affect Results & Data ([facility]) Vital Signs (Past 12 Hours) Vital Signs Temp Pulse Pulse Resp BP BP BP 08/01/20 12:13 36.8 C 62 18 136/76 08/01/20 11:00 62 22 147/51 H 08/01/20 10:31 66 20 152/66 H 08/01/20 10:30 64 17 08/01/20 10:01 69 18 08/01/20 10:00 82 15 156/84 H 08/01/20 09:31 77 19 08/01/20 09:30 67 18 134/101 H 08/01/20 09:18 64 22 162/63 H 08/01/20 09:02 63 17 08/01/20 09:01 60 22 162/63 H 08/01/20 09:00 64 15 08/01/20 08:45 59 L 20 154/64 H 08/01/20 08:30 63 08/01/20 08:00 62 142/48 H 08/01/20 07:57 62 22 08/01/20 07:36 68 14 08/01/20 07:34 64 13 143/87 H 08/01/20 07:22 36.8 C 78 20 142/72 H Pulse Ox 08/01/20 12:13 99 08/01/20 11:00 99 08/01/20 10:31 08/01/20 10:30 08/01/20 10:01 08/01/20 10:00 95 08/01/20 09:31 97 08/01/20 09:30 95 08/01/20 09:18 95 08/01/20 09:02 97 08/01/20 09:01 99 08/01/20 09:00 95 08/01/20 08:45 99 08/01/20 08:30 08/01/20 08:00 08/01/20 07:57 98 08/01/20 07:36 96 08/01/20 07:34 100 08/01/20 07:22 95 Laboratory Results Laboratory Results - last 24 hr 08/01/20 08/01/20 08/01/20 08:41 08:41 08:41 WBC 9.69 RBC 3.56 L Hgb 10.9 L Hct 34.6 L MCV 97.2 MCH 30.6 MCHC 31.5 L RDW Std Deviation 57.8 H RDW Coeff of Karla 16.3 H Plt Count 277 MPV 10.4 Immature Gran % (Auto) 0.2 Neut % (Auto) 84.3 Lymph % (Auto) 9.0 [place] % (Auto) 4.9 Eos % (Auto) 1.4 Baso % (Auto) 0.2 Neut # (Auto) 8.17 H Lymph # (Auto) 0.87 L [place] # (Auto) 0.47 Eos # (Auto) 0.14 Baso # (Auto) 0.02 Immature Gran # (Auto) 0.02 PT 23.5 H INR 2.3 H APTT 31.8 H PTT Ratio 1.1 Sodium 145 Potassium 3.5 Chloride 109 H Carbon Dioxide 29 Anion Gap 7.0 BUN 22 H Creatinine 0.83 Est Cr Clr Drug Dosing Not Reportable Est GFR ( Amer) 81.1 Est GFR (Non-Af Amer) 70.0 BUN/Creatinine Ratio 26.4 H Glucose 80 Calcium 8.1 L Total Bilirubin 0.4 AST 30 ALT 35 Alkaline Phosphatase 102 Total Creatine Kinase 51 CK-MB (CK-2) 1.2 CK/CKMB % Calc 2.4 Troponin I 0.022 NT-Pro-B Natriuret Pep 6495 H Total Protein 5.2 L Albumin 2.2 L Globulin 3.0 Albumin/Globulin Ratio 0.7 L Lipase 63 L Urine Color Urine Appearance Urine pH Ur Specific Heath Urine Protein Urine Glucose (UA) Urine Ketones Urine Blood Urine Nitrite Urine Bilirubin Urine Urobilinogen Ur Leukocyte Esterase Urine WBC (Auto) Urine RBC (Auto) U Hyaline Cast (Auto) U Epithel Cells (Auto) Urine Bacteria (Auto) Ur Renal Epithelial Cell Amorphous Sediment Urine Yeast 08/01/20 10:50 WBC RBC Hgb Hct MCV MCH MCHC RDW Std Deviation RDW Coeff of Karla Plt Count MPV Immature Gran % (Auto) Neut % (Auto) Lymph % (Auto) [place] % (Auto) Eos % (Auto) Baso % (Auto) Neut # (Auto) Lymph # (Auto) [place] # (Auto) Eos # (Auto) Baso # (Auto) Immature Gran # (Auto) PT INR APTT PTT Ratio Sodium Potassium Chloride Carbon Dioxide Anion Gap BUN Creatinine Est Cr Clr Drug Dosing Est GFR ( Amer) Est GFR (Non-Af Amer) BUN/Creatinine Ratio Glucose Calcium Total Bilirubin AST ALT Alkaline Phosphatase Total Creatine Kinase CK-MB (CK-2) CK/CKMB % Calc Troponin I NT-Pro-B Natriuret Pep Total Protein Albumin Globulin Albumin/Globulin Ratio Lipase Urine Color Dark Yellow Urine Appearance Cloudy A Urine pH 5.5 Ur Specific [place] 1.020 Urine Protein 1+ H Urine Glucose (UA) Negative Urine Ketones Negative Urine Blood 3+ H Urine Nitrite Negative Urine Bilirubin Negative Urine Urobilinogen Negative Ur Leukocyte Esterase 2+ H Urine WBC (Auto) >30 H Urine RBC (Auto) 10-30 H U Hyaline Cast (Auto) 10-30 H U Epithel Cells (Auto) >30 H Urine Bacteria (Auto) Negative Ur Renal Epithelial Cell Not Reportable Amorphous Sediment Present A Urine Yeast Not Reportable
--- NOTE | 2020-08-01 15:27 | Ultrasound Report ---
RENAL ULTRASOUND HISTORY: Left ureteral stent. Assess for hydronephrosis. COMPARISON: Abdomen and pelvis CT 06/21/2020. FINDINGS: Right kidney: 10.2 cm. No hydronephrosis. Normal corticomedullary differentiation and cortical thickn ess. Left kidney: 11.9 cm. Moderate hydronephrosis. This remains unchanged. There is a 1.[address] Normal corticomedullary differentiation and cortical thickness. Bladder: Decompressed by a Ramírez catheter. The bladder wall appears thickened and irregular. However, this is not well visualized due to the decompression. IMPRESSION: 1. Moderate left hydronephrosis, unchanged. 2. Normal right kidney. 3. Thickened and irregular bladder wall which is suboptimally assessed given the decompression by the Ramírez catheter. ACT 112: Negative or not required by law. Electronically signed by: Lane Bridges M.D. 08/01/2020 3:25 PM
--- NOTE | 2020-08-01 15:30 | Emergency Department Note ---
History of Present Illness General Chief complaint: Swelling/Edema to Extremity Stated complaint: FILLING UP W/ FLUID, BLEEDING FROM RECTUM Source: patient, family, EMS, RN notes reviewed and old records reviewed Mode of arrival: EMS Limitations: no limitations History of Present Illness Onset (ago): day(s) 1 Location: abdomen Severity: mild Pain Consistency: + intermittent Maximum Pain Intensity: 5 Current Pain Intensity: 5 Quality: + aching Relieved By: + immobilization Exacerbated By: + movement Associated symptoms: + cough, + nausea/vomiting, + shortness of breath and + other (rectal bleeding); no chest pain and no fever/chills Treatments prior to arrival: other (Lasix) This is a 74-year-old female who presents emergency department complaining of abdominal cramping as well as shortness of breath. Patient reports that she took Lasix for the shortness of breath however she still has a cough. In addition to the cough she is also complaining of generalized body aches abdominal pain as well as rectal bleeding she describes the pain as a cramping sensation that comes and goes. She has not taken anything for the pain. Home Medications Home Medications Medication Instructions Recorded Confirmed Type allopurinol 100 mg PO BID 06/23/19 08/01/20 History ascorbic acid (vitamin C) [Vitamin 250 mg PO BID 06/23/19 08/01/20 History C] buspirone 5 mg PO TID 06/23/19 08/01/20 History cyanocobalamin (vitamin B-12) 1,000 mcg IM UD 06/23/19 08/01/20 History duloxetine [Cymbalta] 40 mg PO HS 06/23/19 08/01/20 History ondansetron 4 mg PO Q8H PRN 06/23/19 08/01/20 History oxycodone [Roxicodone] 5 mg PO Q4 PRN 06/23/19 08/01/20 History Flintstones Complete 1 tab PO BID 08/27/19 08/01/20 History docusate sodium 100 mg capsule 100 mg PO BID PRN 08/30/19 08/01/20 History atorvastatin 40 mg PO PM 12/31/19 08/01/20 History bupropion HCl 200 mg PO BID 12/31/19 08/01/20 History calcium carbonate [Tums Extra 750 mg PO UD PRN 12/31/19 08/01/20 History Strength Smoothies] calcium carbonate-vitamin D3 1 cap PO BID 12/31/19 08/01/20 History [Calcium 600 with Vitamin D3] cholecalciferol (vitamin D3) 2,000 unit PO QAM 12/31/19 08/01/20 History [Vitamin D3] nystatin 1 appln TOP BID PRN 12/31/19 08/01/20 History omeprazole 20 mg PO QAM 12/31/19 08/01/20 History oxybutynin chloride 5 mg PO BID 12/31/19 08/01/20 History Probiotic 3,000 mmu cells PO QAM 06/21/20 08/01/20 History potassium chloride [K-Tab] 10 meq PO DAILY 06/21/20 08/01/20 History warfarin 4 mg PO SUMOWETHSA 06/21/20 08/01/20 History metoprolol succinate 12.5 mg PO BID 08/01/20 08/01/20 History warfarin 2 mg PO TUFR 08/01/20 08/01/20 History cephalexin [Keflex] 500 mg PO Q6H #28 cap 08/03/20 Rx furosemide [Lasix] 40 mg PO DAILY #30 tab 08/03/20 Rx hydrocortisone acetate [Anusol-HC] 25 mg OR HS #24 ea 08/03/20 Rx spironolactone 25 mg PO QAM #30 tab 08/03/20 Rx Allergies Allergy/AdvReac Type Severity Reaction Status Date / Time adhesive Allergy Intermediate BLISTERS Verified 08/01/20 08:25 WITH STERI-STRIPS Iodinated Contrast Media Allergy Intermediate hive Verified 08/01/20 08:25 [Iodinated Contrast- Oral and IV Dye] naproxen Allergy Intermediate SWELLING - Verified 08/01/20 08:25 TOLERATES ESTEVES-[address] HALL ciprofloxacin Allergy Mild RASH Verified 08/01/20 08:25 Quinolones Allergy Mild NEUROLOGIC Verified 08/01/20 08:25 SYMPTOMS Past Med/Surg History Medical History Aortic stenosis, severe Apical ballooning syndrome Noted on RAHUL. Per cardiology consult , "Only mild left ventricular dysfunction and suspect stress mediated etiology rather than acute ischemic event. Patient on appropriate beta-sheryl therapy." Arthritis Atrial fibrillation follows with Dr. Ramya Carotid artery stenosis [place] , 50%, LICA 50-69% by 04/09/19 doppler Chronic back pain Degenerative disc disease Depression Diverticulitis Dyslipidemia Factor 5 Leiden mutation, heterozygous recurrent PE/DVT; status post IVC filter placement, on Coumadin Frequent UTI GERD (gastroesophageal reflux disease) Gout [place] filter in place History of anxiety History of cellulitis both legs History of COPD mild--inhaler/nebulizer prn History of depression History of esophageal disorder esophageal diverticulum History of obstructive sleep apnea pt wears CPAP History of peripheral neuropathy bilateral feet History of stress incontinence Hx of cancer of uterus diagnosed 03/2019---radiation only Hx of iron deficiency anemia Hypertension Hyperuricemia Intestinal disorder post op malabsorption Non-ST elevation HI (NSTEMI) On anticoagulant therapy warfarin daily Osteoarthritis Pes planus Post traumatic stress disorder Pulmonary embolism hx of bilateral ~12/12 FFL Spinal stenosis Stroke 06/03/2019 after I&D left hip--vision loss in left eye--no neurologist Vision abnormalities r peripheral vision loss( posterior ischemic optic neuropathyleft eye), left side altered vision like looking through a screen door Weakness Wheelchair dependence Surgical History H/O cystoscopy 06/23/20 [facility] History of arthroplasty of left hip 2006 @ [facility]--infected after, multiple sx's History of biopsy of bladder benign History of colonoscopy with polypectomy History of incision and drainage 05/2019 of left hip---wound vac placed (currently still on as of 12/31/2019) History of left hip replacement 03/2019 @ [facility] [place] History of left shoulder replacement History of right hip replacement 2005 @ [facility] History of tonsillectomy and adenoidectomy History of tooth extraction Hx of gastric bypass Hx of tubal ligation Hx of umbilical hernia repair mesh inserted S/P colon resection 1984 @ [facility] complete sigmoid removed d/t diverticular disease Family History Mother , age 91 Heart disease Family hx colonic polyps Father , age 42 Factor V deficiency Myocardial infarction Sister No problems noted. Sister Endometrial cancer Brother Family hx colonic polyps Brother , age 50 Meningitis Brother No problems noted. Brother No problems noted. Son No problems noted. Son No problems noted. Son Colon abnormality Son , in his 30 `s , " girl friend over dosed the patients son " Drug overdose Grandfather (Paternal) Family history of diabetes mellitus Family hx of colon cancer Other No family history of adverse response to anesthesia Social History Smoking Status: Former smoker Age Started Using Tobacco: 22; packs per day: 0.5; Cigarettes Per Day: 10; Second Hand Exposure: Yes (PARENTS SMOKED); Hx Alcohol Use: No Hx Substance Use: No Preferred Language: Dutch Communication Ability: Effective Visual Impairment: No Limitations Hearing Ability: Normal Stenotype Operator Required: No Beliefs That Will Affect Care: None marital status: / Current Living Situation: Family Current Living Situation Comment: lives with son (laurent) current occupational status: retired 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 Other Information That Helps Us Care for You: No Feels Safe at Home: Yes Safety Concerns: Feels Safe At This Time Assistive Devices: Wheelchair Review of Systems A total of 10 systems reviewed and were otherwise negative Physical Exam Vital Signs Vital Signs - 24 hr 08/01/20 07:22 08/01/20 07:34 08/01/20 07:36 Temperature 36.8 C Temperature Source Oral Pulse Rate 78 64 68 Pulse Rate [Apical] Pulse Rate from SpO2 Sensor 66 69 Pulse Rhythm Regular Pulse Strength Normal Respiratory Rate 20 13 14 Respiratory Effort / Characteristics Non-Labored Spontaneous Normal for Patient Respiratory Depth Normal Respiratory Pattern Regular Blood Pressure 142/72 H 143/87 H Blood Pressure [Right Arm] Blood Pressure Mean 95 99 Blood Pressure Mean [Right Arm] Blood Pressure Position Sitting Pulse Oximetry 95 100 96 Oxygen Delivery Method Room Air Sepsis Recent Fever Within 48 Hours No Sepsis New/Unexplained Change in Mental Status N/A Sepsis Action Taken by Nursing No Action Required 08/01/20 07:57 08/01/20 08:00 08/01/20 08:30 Temperature Temperature Source Pulse Rate 62 62 63 Pulse Rate [Apical] Pulse Rate from SpO2 Sensor Pulse Rhythm Pulse Strength Respiratory Rate 22 Respiratory Effort / Characteristics Respiratory Depth Respiratory Pattern Blood Pressure 142/48 H Blood Pressure [Right Arm] Blood Pressure Mean 76 Blood Pressure Mean [Right Arm] Blood Pressure Position Pulse Oximetry 98 Oxygen Delivery Method Room Air Sepsis Recent Fever Within 48 Hours Sepsis New/Unexplained Change in Mental Status Sepsis Action Taken by Nursing 08/01/20 08:45 08/01/20 09:00 08/01/20 09:01 Temperature Temperature Source Pulse Rate 59 L 64 60 Pulse Rate [Apical] Pulse Rate from SpO2 Sensor 58 L 66 60 Pulse Rhythm Pulse Strength Respiratory Rate 20 15 22 Respiratory Effort / Characteristics Respiratory Depth Respiratory Pattern Blood Pressure 154/64 H 162/63 H Blood Pressure [Right Arm] Blood Pressure Mean 103 94 Blood Pressure Mean [Right Arm] Blood Pressure Position Pulse Oximetry 99 95 99 Oxygen Delivery Method Sepsis Recent Fever Within 48 Hours Sepsis New/Unexplained Change in Mental Status Sepsis Action Taken by Nursing 08/01/20 09:02 08/01/20 09:18 08/01/20 09:30 Temperature Temperature Source Pulse Rate 63 67 Pulse Rate [Apical] 64 Pulse Rate from SpO2 Sensor 62 65 Pulse Rhythm Pulse Strength Respiratory Rate 17 22 18 Respiratory Effort / Characteristics Non-Labored Spontaneous Respiratory Depth Normal Respiratory Pattern Regular Blood Pressure 134/101 H Blood Pressure [Right Arm] 162/63 H Blood Pressure Mean 116 Blood Pressure Mean [Right Arm] 96 Blood Pressure Position Pulse Oximetry 97 95 95 Oxygen Delivery Method Room Air Sepsis Recent Fever Within 48 Hours Sepsis New/Unexplained Change in Mental Status Sepsis Action Taken by Nursing 08/01/20 09:31 Temperature Temperature Source Pulse Rate 77 Pulse Rate [Apical] Pulse Rate from SpO2 Sensor 71 Pulse Rhythm Pulse Strength Respiratory Rate 19 Respiratory Effort / Characteristics Respiratory Depth Respiratory Pattern Blood Pressure Blood Pressure [Right Arm] Blood Pressure Mean Blood Pressure Mean [Right Arm] Blood Pressure Position Pulse Oximetry 97 Oxygen Delivery Method Sepsis Recent Fever Within 48 Hours Sepsis New/Unexplained Change in Mental Status Sepsis Action Taken by Nursing VITAL SIGNS - Vital signs and nursing notes were reviewed. GENERAL - 74-year-old female appearing stated age who is in no acute distress. Communicates well with provider and answers questions appropriately. SKIN - Without rashes. HEAD - NC/AT. EYES - PERRL with EOMI bilaterally. Sclera anicteric. Palpebral conjunctiva pink and moist with no injection noted. EARS - No deformities of external structures noted on gross examination bilaterally. No pain elicited with palpation of the tragus bilaterally. External auditory canals without discharge or otorrhea. Tympanic membranes pearly valentino without retraction or bulging. No fluid or purulent material visualized behind the TM. Handle of malleus, umbo, cone of light, pars tensa/flaccid all easily visualized. NOSE - Midline and without cyanosis. No epistaxis or purulent drainage noted. Septum midline without deviation or septal hematoma noted. MOUTH/OROPHARYNX - Without perioral cyanosis. Buccal mucosa pink and moist and without leukoplakia. Tongue midline with equal elevation of palate bilaterally. No tonsillar hypertrophy, erythema, or exudates noted. dentition noted. NECK - Neck with FROM. Supple to palpation. lymphadenopathy noted. No nuchal rigidity. LUNGS - Chest wall symmetric without accessory muscle use, intercostals retractions, or central cyanosis. Normal vesicular breath sounds CTA B/L. No wheezes, rales, or rhonchi appreciated. CARDIAC - RRR with S1/S2. No murmur, rubs, or gallops appreciated. ABDOMEN - Abdominal contour without pulsations or visible masses. BS normoactive all four quadrants. No tenderness, palpable masses, hepat osplenomegaly, or ascites noted. EXTREMITIES - No clubbing or peripheral cyanosis. No pretibial edema present. +3/5 radial, posterior tibial, and dorsalis pedis pulses palpated throughout. +5/5 strength noted in UE/LE bilaterally. NEUROLOGIC - Cranial nerves II through XII grossly intact. Sensory intact to light touch throughout. Patellar reflexes +2/4. PSYCH - A&Ox3 and cooperates fully with examiner. Pt is very pleasant and interacts well with examiner. Course Administered Medications Discontinued Medications Allopurinol (Allopurinol 100 Mg Tab) 100 mg PO BID [facility] Stop: 08/31/20 20:59 Last Admin: 08/03/20 08:13 Dose: 100 mg Documented by: [id number] Admin: 08/02/20 20:28 Dose: 100 mg Documented by: [id number] Admin: 08/02/20 08:15 Dose: 100 mg Documented by: [id number] Admin: 08/01/20 20:28 Dose: 100 mg Documented by: [id number] Ascorbic Acid (Ascorbic Acid 500 Mg Tab) 250 mg PO BID NAY Stop: 08/31/20 20:59 Last Admin: 08/03/20 08:09 Dose: 250 mg Documented by: [id number] Admin: 08/02/20 20:27 Dose: 250 mg Documented by: [id number] Admin: 08/02/20 08:14 Dose: 250 mg Documented by: [id number] Admin: 08/01/20 20:27 Dose: 250 mg Documented by: [id number] Atorvastatin Calcium (Atorvastatin 40 Mg Tab) 40 mg PO PM NAY Stop: 08/31/20 20:59 Last Admin: 08/02/20 20:28 Dose: 40 mg Documented by: [id number] Admin: 08/01/20 20:27 Dose: 40 mg Documented by: [id number] Bupropion HCl (Bupropion Sr 100 Mg Tabcr) 200 mg PO BID NAY Stop: 08/31/20 20:59 Last Admin: 08/03/20 08:10 Dose: 200 mg Documented by: [id number] Admin: 08/02/20 20:27 Dose: 200 mg Documented by: [id number] Admin: 08/02/20 09:33 Dose: 200 mg Documented by: [id number] Admin: 08/01/20 20:28 Dose: 200 mg Documented by: [id number] Buspirone HCl (Buspirone 5 Mg Tab) 5 mg PO TID NAY Stop: 08/31/20 13:59 Last Admin: 08/03/20 13:58 Dose: 5 mg Documented by: [id number] Admin: 08/03/20 08:11 Dose: 5 mg Documented by: [id number] Admin: 08/02/20 20:28 Dose: 5 mg Documented by: [id number] Admin: 08/02/20 14:21 Dose: 5 mg Documented by: [id number] Admin: 08/02/20 08:13 Dose: 5 mg Documented by: [id number] Admin: 08/01/20 20:26 Dose: 5 mg Documented by: [id number] Admin: 08/01/20 13:51 Dose: 5 mg Documented by: [id number] Duloxetine HCl (Duloxetine Hcl 20 Mg Cap) 40 mg PO HS NAY Stop: 08/31/20 20:59 Last Admin: 08/02/20 20:28 Dose: 40 mg Documented by: [id number] Admin: 08/01/20 20:23 Dose: 40 mg Documented by: [id number] Furosemide (Furosemide 40 Mg/4 Ml Vial) 40 mg IV NOW STA Stop: 08/01/20 09:24 Last Admin: 08/01/20 10:53 Dose: 40 mg Documented by: [id number] Piperacillin Sod/Tazobactam Sod (Zosyn) 4.5 gm in 120 mls @ 240 mls/hr IV NOW ONE Stop: 08/01/20 09:52 Last Infusion: 08/01/20 10:42 Dose: 0 mls/hr Documented by: [id number] Admin: 08/01/20 10:01 Dose: 240 mls/hr Documented by: [id number] Cefazolin Sodium (Ancef 1000mg) 1,000 mg in 7.5 mls @ 2.5 mls/min IV Q8H NAY Stop: 08/08/20 15:59 Last Admin: 08/03/20 08:14 Dose: 2.5 mls/min Documented by: [id number] Admin: 08/02/20 23:48 Dose: 2.5 mls/min Documented by: [id number] Admin: 08/02/20 15:31 Dose: 2.5 mls/min Documented by: [id number] Admin: 08/02/20 09:50 Dose: 2.5 mls/min Documented by: [id number] Admin: 08/02/20 00:04 Dose: 2.5 mls/min Documented by: [id number] Admin: 08/01/20 16:24 Dose: 2.5 mls/min Documented by: [id number] Furosemide 40 mg/ Syringe 4 mls @ 4 mls/min IV [id number] NAY Stop: 08/31/20 16:59 Last Admin: 08/01/20 16:36 Dose: 4 mls/min Documented by: [id number] Furosemide 40 mg/ Syringe 4 mls @ 4 mls/min IV ONE ONE Stop: 08/02/20 11:16 Last Admin: 08/02/20 12:14 Dose: 4 mls/min Documented by: [id number] Furosemide 40 mg/ Syringe 4 mls @ 4 mls/min IV ONE ONE Stop: 08/02/20 19:01 Last Admin: 08/02/20 18:56 Dose: 4 mls/min Documented by: [id number] Magnesium Sulfate/Dextrose (Magnesium Sulfate / D5w) 1 gm in 100 mls @ 50 mls/hr IV Q2H NAY Stop: 08/03/20 13:59 Last Infusion: 08/03/20 13:39 Dose: 0 mls/hr Documented by: [id number] Admin: 08/03/20 11:06 Dose: 50 mls/hr Documented by: [id number] Infusion: 08/03/20 11:06 Dose: 50 mls/hr Documented by: [id number] Admin: 08/03/20 11:06 Dose: 50 mls/hr Documented by: [id number] Lactobacillus Acidophilus (Lactobacillus Acidophilus (Floranex) Tab) 4 tab PO QAM NAY Stop: 09/01/20 08:59 Last Admin: 08/03/20 08:09 Dose: 4 tab Documented by: [id number] Admin: 08/02/20 08:13 Dose: 4 tab Documented by: [id number] Metoprolol Succinate (Metoprolol Succ 25mg Ext Rel Tab) 12.5 mg PO BID NAY Stop: 08/31/20 20:59 Last Admin: 08/03/20 08:12 Dose: 12.5 mg Documented by: [id number] Admin: 08/02/20 20:27 Dose: 12.5 mg Documented by: [id number] Admin: 08/02/20 08:13 Dose: 12.5 mg Documented by: [id number] Admin: 08/01/20 20:28 Dose: 12.5 mg Documented by: [id number] Multivitamins/Folic Acid/Vitamin C (Flintstones Complete Chewable Tab) 1 tab PO BID NAY Stop: 08/31/20 20:59 Last Admin: 08/03/20 08:08 Dose: 1 tab Documented by: [id number] Admin: 08/02/20 20:27 Dose: 1 tab Documented by: [id number] Admin: 08/02/20 08:13 Dose: 1 tab Documented by: [id number] Admin: 08/01/20 20:26 Dose: 1 tab Documented by: [id number] Multivitamins/Minerals (Calcium 600mg + Vit D 400 Iu Tab) 1 tab PO BID NAY Stop: 08/31/20 20:59 Last Admin: 08/03/20 08:08 Dose: 1 tab Documented by: [id number] Admin: 08/02/20 20:28 Dose: 1 tab Documented by: [id number] Admin: 08/02/20 08:13 Dose: 1 tab Documented by: [id number] Admin: 08/01/20 20:26 Dose: 1 tab Documented by: [id number] Oxybutynin Chloride (Oxybutynin Chloride 5 Mg Tab) 5 mg PO BID NAY Stop: 08/31/20 20:59 Last Admin: 08/03/20 08:13 Dose: 5 mg Documented by: [id number] Admin: 08/02/20 20:28 Dose: 5 mg Documented by: [id number] Admin: 08/02/20 08:13 Dose: 5 mg Documented by: [id number] Admin: 08/01/20 20:27 Dose: 5 mg Documented by: [id number] Oxycodone HCl (Oxycodone Hcl Ir 5 Mg Tab (Immediate Release)) 5 mg PO Q4 PRN PRN Reason: Pain Stop: 08/15/20 12:09 Last Admin: 08/03/20 10:25 Dose: 5 mg Documented by: [id number] Admin: 08/02/20 23:48 Dose: 5 mg Documented by: [id number] Admin: 08/02/20 15:31 Dose: 5 mg Documented by: [id number] Admin: 08/02/20 09:49 Dose: 5 mg Documented by: [id number] Admin: 08/01/20 16:22 Dose: 5 mg Documented by: [id number] Pantoprazole Sodium (Pantoprazole 40 Mg Tab) 40 mg PO QAM [facility] Stop: 09/01/20 08:59 Last Admin: 08/03/20 08:10 Dose: 40 mg Documented by: [id number] Admin: 08/02/20 08:13 Dose: 40 mg Documented by: [id number] Potassium Chloride (Potassium Chloride 10 Meq Tabcr) 10 meq PO DAILY NAY Stop: 09/01/20 08:59 Last Admin: 08/03/20 08:13 Dose: 10 meq Documented by: [id number] Admin: 08/02/20 08:13 Dose: 10 meq Documented by: [id number] Potassium Chloride (Potassium Chloride 20 Meq Tabcr) 40 meq PO NOW STA Stop: 08/01/20 14:31 Last Admin: 08/01/20 16:24 Dose: 40 meq Documented by: [id number] Potassium Chloride (Potassium Chloride 20 Meq Tabcr) 40 meq PO ONE ONE Stop: 08/02/20 10:31 Last Admin: 08/02/20 12:13 Dose: 40 meq Documented by: [id number] Spironolactone (Spironolactone 25 Mg Tab) 25 mg PO QAM [facility] Stop: 09/01/20 11:14 Last Admin: 08/03/20 08:11 Dose: 25 mg Documented by: [id number] Admin: 08/02/20 12:14 Dose: 25 mg Documented by: [id number] Vitamin D (Cholecalciferol 1,000 Units 25 Mcg Tab) [facility] [place] Stop: 09/01/20 08:59 Last Admin: 08/03/20 08:12 Dose: 2,000 units Documented by: [id number] Admin: 08/02/20 08:15 Dose: 2,000 units Documented by: [id number] Warfarin Sodium (Warfarin Sod 2 Mg Tab) 2 mg PO TuFr@1600 NAY Stop: 08/31/20 15:59 Last Admin: 08/01/20 16:36 Dose: 2 mg Documented by: [id number] Warfarin Sodium (Warfarin Sod 4 Mg Tab) 4 mg PO SuMoWeThSa@1600 NAY Stop: 09/01/20 15:59 Last Admin: 08/02/20 15:31 Dose: 4 mg Documented by: [id number] Medical Decision Making Differential Diagnosis Reactive airway disease, pneumonia, pneumothorax, COPD, CHF, infections, cardiac ischemia, pulmonary embolism, musculoskeletal, gastrointestinal, as well as other pathologies. Medical Records Attestation: I reviewed the patient's medical records. Home Medications Current Medication List: was personally reviewed by me Laboratory Data Attestation: I reviewed the patient's lab results. Result diagrams: 08/03/20 05:52 08/03/20 05:52 Lab Results 08/01/20 08/01/20 08/01/20 Range/Units 08:41 08:41 08:41 WBC 9.69 (4.8-10.8) K/uL RBC 3.56 L (4.2-5.4) M/uL Hgb 10.9 L (12.0-16.0) g/dL Hct 34.6 L (37-47) % MCV 97.2 (80-100) fL MCH 30.6 (25-34) pg MCHC 31.5 L (32-36) g/dL RDW Std Deviation 57.8 H (36.4-46.3) fL RDW Coeff of Karla 16.3 H (11.5-14.5) % Plt Count 277 (130-400) K/uL MPV 10.4 (7.4-10.4) fL Immature Gran % (Auto) 0.2 % Neut % (Auto) 84.3 % Lymph % (Auto) 9.0 % [place] % (Auto) 4.9 % Eos % (Auto) 1.4 % Baso % (Auto) 0.2 % Neut # (Auto) 8.17 H (1.4-6.5) K/uL Lymph # (Auto) 0.87 L (1.2-3.4) K/uL [place] # (Auto) 0.47 (0.11-0.59) K/uL Eos # (Auto) 0.14 (0-0.5) K/uL Baso # (Auto) 0.02 (0-0.2) K/uL Immature Gran # (Auto) 0.02 (0.00-0.02) K/uL PT 23.5 H (9.0-12.0) Seconds INR 2.3 H (0.9-1.1) APTT 31.8 H (21.0-31.0) Seconds PTT Ratio 1.1 Sodium 145 (136-145) mmol/L Potassium 3.5 (3.5-5.1) mmol/L Chloride 109 H (98-107) mmol/L Carbon Dioxide 29 (21-32) mmol/L Anion Gap 7.0 (3-11) BUN 22 H (7-18) mg/dl Creatinine 0.83 (0.6-1.2) mg/dl Est Cr Clr Drug Dosing Not Reportable Est GFR ( Amer) 81.1 Est GFR (Non-Af Amer) 70.0 BUN/Creatinine Ratio 26.4 H (10-20) Glucose 80 (70-99) mg/dl Calcium 8.1 L (8.5-10.1) mg/dl Total Bilirubin 0.4 (0.2-1) mg/dl AST 30 (15-37) U/L ALT 35 (12-78) U/L Alkaline Phosphatase 102 (45-117) U/L Total Creatine Kinase 51 (26-192) U/L CK-MB (CK-2) 1.2 (0.5-3.6) ng/ml CK/CKMB % Calc 2.4 (0-3.0) Troponin I 0.022 (0-0.045) ng/ml NT-Pro-B Natriuret Pep 6495 H (0-900) pg/ml Total Protein 5.2 L (6.4-8.2) gm/dl Albumin 2.2 L (3.4-5.0) gm/dl Globulin 3.0 (2.5-4.0) gm/dl Albumin/Globulin Ratio 0.7 L (0.9-2) Lipase 63 L (73-393) U/L Urine Color Urine Appearance (Clear) Urine pH (4.5-7.5) Ur Specific [place] (1.000-1.030) Urine Protein (Negative) Urine Glucose (UA) (Negative) Urine Ketones (Negative) Urine Blood (Negative) Urine Nitrite (Negative) Urine Bilirubin (Negative) Urine Urobilinogen (Negative) Ur Leukocyte Esterase (Negative) Urine WBC (Auto) (0-5) /hpf Urine RBC (Auto) (0-4) /hpf U Hyaline Cast (Auto) (0-5) /lpf U Epithel Cells (Auto) (0-5) /lpf Urine Bacteria (Auto) (Negative) Ur Renal Epithelial Cell Amorphous Sediment (None Prsent) Urine Yeast 08/01/20 08/01/20 08/02/20 Range/Units 10:50 19:29 07:16 WBC 7.06 (4.8-10.8) K/uL RBC 3.35 L (4.2-5.4) M/uL Hgb 9.7 L 10.1 L (12.0-16.0) g/dL Hct 30.5 L 32.1 L (37-47) % MCV 95.8 (80-100) fL MCH 30.1 (25-34) pg MCHC 31.5 L (32-36) g/dL RDW Std Deviation 57.0 H (36.4-46.3) fL RDW Coeff of Karla 16.2 H (11.5-14.5) % Plt Count 242 (130-400) K/uL MPV 10.1 (7.4-10.4) fL Immature Gran % (Auto) 0.3 % Neut % (Auto) 81.2 % Lymph % (Auto) 10.6 % [place] % (Auto) 5.8 % Eos % (Auto) 1.7 % Baso % (Auto) 0.4 % Neut # (Auto) 5.73 (1.4-6.5) K/uL Lymph # (Auto) 0.75 L (1.2-3.4) K/uL [place] # (Auto) 0.41 (0.11-0.59) K/uL Eos # (Auto) 0.12 (0-0.5) K/uL Baso # (Auto) 0.03 (0-0.2) K/uL Immature Gran # (Auto) 0.02 (0.00-0.02) K/uL PT (9.0-12.0) Seconds INR (0.9-1.1) APTT (21.0-31.0) Seconds PTT Ratio Sodium (136-145) mmol/L Potassium (3.5-5.1) mmol/L Chloride (98-107) mmol/L Carbon Dioxide (21-32) mmol/L Anion Gap (3-11) BUN (7-18) mg/dl Creatinine (0.6-1.2) mg/dl Est Cr Clr Drug Dosing Est GFR ( Amer) Est GFR (Non-Af Amer) BUN/Creatinine Ratio (10-20) Glucose (70-99) mg/dl Calcium (8.5-10.1) mg/dl Total Bilirubin (0.2-1) mg/dl AST (15-37) U/L ALT (12-78) U/L Alkaline Phosphatase (45-117) U/L Total Creatine Kinase (26-192) U/L CK-MB (CK-2) (0.5-3.6) ng/ml CK/CKMB % Calc (0-3.0) Troponin I (0-0.045) ng/ml NT-Pro-B Natriuret Pep (0-900) pg/ml Total Protein (6.4-8.2) gm/dl Albumin (3.4-5.0) gm/dl Globulin (2.5-4.0) gm/dl Albumin/Globulin Ratio (0.9-2) Lipase (73-393) U/L Urine Color Dark Yellow Urine Appearance Cloudy A (Clear) Urine pH 5.5 (4.5-7.5) Ur Specific [place] 1.020 (1.000-1.030) Urine Protein 1+ H (Negative) Urine Glucose (UA) Negative (Negative) Urine Ketones Negative (Negative) Urine Blood 3+ H (Negative) Urine Nitrite Negative (Negative) Urine Bilirubin Negative (Negative) Urine Urobilinogen Negative (Negative) Ur Leukocyte Esterase 2+ H (Negative) Urine WBC (Auto) >30 H (0-5) /hpf Urine RBC (Auto) 10-30 H (0-4) /hpf U Hyaline Cast (Auto) 10-30 H (0-5) /lpf U Epithel Cells (Auto) >30 H (0-5) /lpf Urine Bacteria (Auto) Negative (Negative) Ur Renal Epithelial Cell Not Reportable Amorphous Sediment Present A (None Prsent) Urine Yeast Not Reportable 08/02/20 08/02/20 Range/Units 07:16 07:16 WBC (4.8-10.8) K/uL RBC (4.2-5.4) M/uL Hgb (12.0-16.0) g/dL Hct (37-47) % MCV (80-100) fL MCH (25-34) pg MCHC (32-36) g/dL RDW Std Deviation (36.4-46.3) fL RDW Coeff of Karla (11.5-14.5) % Plt Count (130-400) K/uL MPV (7.4-10.4) fL Immature Gran % (Auto) % Neut % (Auto) % Lymph % (Auto) % [place] % (Auto) % Eos % (Auto) % Baso % (Auto) % Neut # (Auto) (1.4-6.5) K/uL Lymph # (Auto) (1.2-3.4) K/uL [place] # (Auto) (0.11-0.59) K/uL Eos # (Auto) (0-0.5) K/uL Baso # (Auto) (0-0.2) K/uL Immature Gran # (Auto) (0.00-0.02) K/uL PT 22.7 H (9.0-12.0) Seconds INR 2.2 H (0.9-1.1) APTT (21.0-31.0) Seconds PTT Ratio Sodium 144 (136-145) mmol/L Potassium 3.3 L (3.5-5.1) mmol/L Chloride 108 H (98-107) mmol/L Carbon Dioxide 31 (21-32) mmol/L Anion Gap 5.0 (3-11) BUN 22 H (7-18) mg/dl Creatinine 0.96 (0.6-1.2) mg/dl Est Cr Clr Drug Dosing 70.7 Est GFR ( Amer) 68.0 Est GFR (Non-Af Amer) 58.7 BUN/Creatinine Ratio 22.6 H (10-20) Glucose 79 (70-99) mg/dl Calcium 7.5 L (8.5-10.1) mg/dl Total Bilirubin (0.2-1) mg/dl AST (15-37) U/L ALT (12-78) U/L Alkaline Phosphatase (45-117) U/L Total Creatine Kinase (26-192) U/L CK-MB (CK-2) (0.5-3.6) ng/ml CK/CKMB % Calc (0-3.0) Troponin I (0-0.045) ng/ml NT-Pro-B Natriuret Pep (0-900) pg/ml Total Protein (6.4-8.2) gm/dl Albumin (3.4-5.0) gm/dl Globulin (2.5-4.0) gm/dl Albumin/Globulin Ratio (0.9-2) Lipase (73-393) U/L Urine Color Urine Appearance (Clear) Urine pH (4.5-7.5) Ur Specific [place] (1.000-1.030) Urine Protein (Negative) Urine Glucose (UA) (Negative) Urine Ketones (Negative) Urine Blood (Negative) Urine Nitrite (Negative) Urine Bilirubin (Negative) Urine Urobilinogen (Negative) Ur Leukocyte Esterase (Negative) Urine WBC (Auto) (0-5) /hpf Urine RBC (Auto) (0-4) /hpf U Hyaline Cast (Auto) (0-5) /lpf U Epithel Cells (Auto) (0-5) /lpf Urine Bacteria (Auto) (Negative) Ur Renal Epithelial Cell Amorphous Sediment (None Prsent) Urine Yeast Imaging Data Radiologist's Impression: [facility], [place] [phone] XRay Report Patient: RAHEEM POSADAS AAdmit Date: 08/01/20 MR#: [id number]: [facility] [place] ONDINA SANCHEZ Acct ID:[id number] Date: 1945[facility] Zip: [place] [address] Age: 74Location: ED Sex: FRoom/Bed: Att Phy:Diagnosis: FILLING UP W/ FLUID, BLEEDING FROM RECTUM Faby Phy: Sadi Shea, DOService Date: 08/01/20 Fam Phy:Interpreting Phy: Edmundo Denise Admit Phy: Ordering Phy: Brandon Cope MD cc: ~ XR chest 1V portable HISTORY: 74 years-old Female Chest Pain acute atypical chest pain COMPARISON: Chest radiograph 06/21/2020 TECHNIQUE: Portable AP view of the chest FINDINGS: Cardiac silhouette is mildly enlarged. Chronic interstitial coarsening of the lung bases. Calcified plaque of the thoracic aortic arch. No pneumothorax, pleural effusion, overt pulmonary edema or airspace consolidation typical for pneumonia. Sigmoidal thoracolumbar scoliosis. Severe osteoarthritis of the right glenohumeral joint with loose bodies of the subscapularis and axillary recesses. Reverse left shoulder total joint arthroplasty. Remote left clavicular fracture deformity. Loose bodies of the right subscapularis recess. Hiatal hernia. IMPRESSION: No acute process. ACT 112: Negative or not required by law. The above report was generated using voice recognition software. It may contain grammatical, syntax or spelling errors. Electronically signed by: Ezequiel Denise M.D. 08/01/2020 8:41 AM Dictated: 08/01/20838 Transcribed: 08/01/20838 ECG Data Attestation: I personally reviewed and interpreted this ECG as follows: Indication: + SOB/dyspnea Rate (beats per minute): 63 Rhythm: + normal sinus ECG [place]: + Normal ECG ST segments: no ST depression and no ST elevation Comparison ECG Date: from (06/23/2020) Change: no significant change MDM Narrative Patient was seen and evaluated as above in room A10. Review was performed of nursing notes and vital signs. I did review pertinent previous visits and patient history. After obtaining a thorough history and physical examination the above work up was performed. This is a 74-year-old female who presents emergency department complaining of shortness of breath with a number of complaints. The patient is complaining of shortness of breath as well as a rectal bleed. She was given Lasix here in the emergency department. I did discuss the case with the hospitalist service who did agreed admit the patient. Patient is in agreement with the treatment plan. An order was placed for continuous cardiac monitoring. The monitor shows a rate of 76 with Normal Sinus rhythm. GCS: 15 The patient was evaluated during the global COVID-19 pandemic, and that diagnosis was suspected/considered upon their initial presentation. Their evaluation, treatment and testing was consistent with current guidelines for patients who present with complaints or symptoms that may be related to COVID- 19. Impression & Plan BRBPR (bright red blood per rectum), Cellulitis of right lower extremity, Acute on chronic heart failure with preserved ejection fraction (HFpEF) Discharge Plan Visit Data Chief Complaint: Swelling/Edema to Extremity Stated Complaint: FILLING UP W/ FLUID, BLEEDING FROM RECTUM ED Provider: Brandon Cope Discharge Problem: BRBPR (bright red blood per rectum), Cellulitis of right lower extremity, Acute on chronic heart failure with preserved ejection fraction (HFpEF) Patient Disposition: Admitted As Inpatient Condition: Good Discharge Instructions Interventions: ED Discharge Assessment Last Done: 08/01/20 11:06
[2020-08-01] MEDS ORDERED: WARFARIN SOD 2 MG TAB PO SCH (16:00)
[2020-08-01] MEDS: OXYCODONE HCL IR 5 MG TAB (IMMEDIATE RELEASE) PO PRN (16:22)
[2020-08-01] MEDS: CEFAZOLIN 1000MG 1,000 MG/7.5 ML SYR IV SCH (16:24)
[2020-08-01] MEDS ORDERED: FUROSEMIDE 40 MG/4 ML VIAL IV SCH (17:00)
[2020-08-01] MEDS ORDERED: FUROSEMIDE 40 MG in SYRINGE 0 ML IV SCH (17:00)
[2020-08-01 19:43] LABS: Hematocrit (blood only) 30.5 % (37-47); Hemoglobin 9.7 g/dL (12.0-16.0)
[2020-08-01] MEDS: DULOXETINE HCL 20 MG CAP PO SCH (20:23)
[2020-08-01] MEDS: MULTIVITAMIN CHEWABLE TAB PO SCH (20:26)
[2020-08-01] MEDS: CALCIUM 600MG + VIT D 400 IU TAB PO SCH (20:26)
[2020-08-01] MEDS: ATORVASTATIN 40 MG TAB PO SCH (20:27)
[2020-08-01] MEDS: ASCORBIC ACID 500 MG TAB PO SCH (20:27)
[2020-08-01] MEDS: OXYBUTYNIN CHLORIDE 5 MG TAB PO SCH (20:27)
[2020-08-01] MEDS: BuPROPion SR 100 MG TABCR PO SCH (20:28)
[2020-08-01] MEDS: METOPROLOL SUCC 25MG EXT REL TAB PO SCH (20:28)
[2020-08-01] MEDS: allopurinoL 100 MG TAB PO SCH (20:28)
[2020-08-02] MEDS: CEFAZOLIN 1000MG 1,000 MG/7.5 ML SYR IV SCH ×4 (00:04→23:48)
[2020-08-02 07:36] LABS: Basophils # (auto) 0.03 K/uL (0-0.2); Basophils % (auto) 0.4 %; Eosinophils # (auto) 0.12 K/uL (0-0.5); Eosinophils % (auto) 1.7 %; Hematocrit (blood only) 32.1 % (37-47); Hemoglobin 10.1 g/dL (12.0-16.0); Immature Granulocytes # (auto) 0.02 K/uL (0.00-0.02); Immature Granulocytes % (auto) 0.3 %; Lymphocytes # (auto) 0.75 K/uL (1.2-3.4); Lymphocytes % (auto) 10.6 %; Mean Corpuscular Hemoglobin 30.1 pg (25-34); Mean Corpuscular Hgb Conc 31.5 g/dL (32-36); Mean Corpuscular Volume 95.8 fL (80-100); Mean Platelet Volume 10.1 fL (7.4-10.4); Monocytes # (auto) 0.41 K/uL (0.11-0.59); Monocytes % (auto) 5.8 %; Neutrophils # (auto) 5.73 K/uL (1.4-6.5); Neutrophils % (auto) 81.2 %; Platelet Count 242 K/uL (130-400); RDW Coefficient of Variation 16.2 % (11.5-14.5); Red Blood Count 3.35 M/uL (4.2-5.4); White Blood Count 7.06 K/uL (4.8-10.8)
[2020-08-02 07:44] LABS: INR 2.2 (0.9-1.1); Prothrombin Time 22.7 Seconds (9.0-12.0)
[2020-08-02] MEDS: CALCIUM 600MG + VIT D 400 IU TAB PO SCH ×2 (08:13→20:28)
[2020-08-02] MEDS: PANTOprazole 40 MG TAB PO SCH (08:13)
[2020-08-02] MEDS: METOPROLOL SUCC 25MG EXT REL TAB PO SCH ×2 (08:13→20:27)
[2020-08-02] MEDS: LACTOBACILLUS ACIDOPHILUS (FLORANEX) TAB PO SCH (08:13)
[2020-08-02] MEDS: POTASSIUM CHLORIDE 10 MEQ TABCR PO SCH (08:13)
[2020-08-02] MEDS: MULTIVITAMIN CHEWABLE TAB PO SCH ×2 (08:13→20:27)
[2020-08-02] MEDS: OXYBUTYNIN CHLORIDE 5 MG TAB PO SCH ×2 (08:13→20:28)
[2020-08-02 08:14] LABS: BUN Creatinine Ratio 22.6 (10-20); Calcium 7.5 mg/dl (8.5-10.1); Creatinine Clr Calc Pharmacy 70.7 ml/min; Est GFR (Non-African American) 58.7; Potassium 3.3 mmol/L (3.5-5.1)
[2020-08-02] MEDS: ASCORBIC ACID 500 MG TAB PO SCH ×2 (08:14→20:27)
[2020-08-02] MEDS: CHOLECALCIFEROL 1,000 UNITS 25 MCG TAB PO SCH (08:15)
[2020-08-02] MEDS: allopurinoL 100 MG TAB PO SCH ×2 (08:15→20:28)
[2020-08-02] MEDS: BuPROPion SR 100 MG TABCR PO SCH ×2 (09:33→20:27)
[2020-08-02] MEDS: OXYCODONE HCL IR 5 MG TAB (IMMEDIATE RELEASE) PO PRN ×3 (09:49→23:48)
[2020-08-02] MEDS ORDERED: POTASSIUM CHLORIDE 20 MEQ TABCR PO ONE (10:30)
[2020-08-02] MEDS ORDERED: FUROSEMIDE 40 MG in SYRINGE 0 ML IV ONE ×2 (11:15→19:00)
[2020-08-02] MEDS: SPIRONOLACTONE 25 MG TAB PO SCH (12:14)
--- NOTE | 2020-08-02 14:05 | Electrocardiogram Report ---
Test Reason : Blood Pressure : / mmHG Vent. Rate : 063 BPM Atrial Rate : 063 BPM P-R Int : 150 ms QRS Dur : 102 ms QT Int : 432 ms P-R-T Axes : 019 -03 102 degrees QTc Int : 442 ms Poor data quality, interpretation may be adversely affected Normal sinus rhythm Nonspecific ST and T wave abnormality Abnormal ECG When compared with ECG of 23-JUN-2020 12:28, Criteria for Anteroseptal infarct are no longer Present Confirmed by Chad Mcguire ([id number]) on 08/02/2020 2:04:43 PM Referred By: REFERRED SELF Confirmed By:Chad Mcguire
--- NOTE | 2020-08-02 14:07 | Cardiology Progress Note ---
Date of Service August 02, 2020 Assessment & Plan (1) Acute on chronic heart failure with preserved ejection fraction (HFpEF): Patient is a 74-year-old female with complex underlying issues as noted presents with acute on chronic decompensated right greater than left diastolic heart failure secondary to valvular disease. Symptoms of volume overload and edema possibly worsened by increased volume intake aid in urinary stone passing. Renal function remains stable after nearly 6 L diuresis. Exam reflects persistent right-sided greater than left volume overload with peripheral edema Additional furosemide 40 mg IV today and this evening Potassium supplemented this morning We will add spironolactone 25 mg p.o. (2) Aortic stenosis, severe: Patient scheduled for valve clinic evaluation August 14 (3) Left ureteral stone: Status post laser lithotripsy. Patient without current complaint, anticipate removal of urinary stent on 08/08/2020 Admission and Anticipated Discharge Date Admission Date: August 01, 2020 Subjective Patient was seen and examined, chart, medications, telemetry reviewed. Patient has had very brisk response to IV diuretics (6 L) and feels improved though persistent lower extremity edema present. No chest pains, tachypalpitations, dizziness or lightheadedness. Physical Exam Constitutional: WD/WN, vitals as above + morbidly obese Eyes: PERRL, conjunctivae normal, anicteric sclerae ENMT: external ear and nose normal, oropharynx normal Neck: trachea midline, no thyromegaly Respiratory: Auscultation: + diminished lung sounds; no rales Cardiovascular: Rate/Rhythm: regular rate and regular rhythm Heart Sounds: normal S1, normal S2 and + murmur (Grade 3/6 harsh systolic murmur); no gallop Palpation: normal PMI Vessels: normal carotid upstroke and radial pulses present; no JVD and no carotid bruit Extremities: + edema (2-3+ lower extremity edema) Gastrointestinal (Abdomen): normal bowel sounds, soft, nontender, no hepatosplenomegaly Musculoskeletal: no cyanosis or clubbing, extremities motor strength 5/5 Neurologic: PERRL, EOMI, accommodation nl, no face palsy, no dysarthria Psychiatric: A+Ox3, euthymic affect Results & Data ([facility]) Vital Signs (Past 12 Hours) Vital Signs Temp Pulse Pulse Resp BP Pulse Ox 08/02/20 11:35 36.9 C 66 18 126/68 95 08/02/20 07:51 36.7 C 69 20 138/76 96 08/02/20 07:14 63 08/02/20 04:18 36.9 C 66 20 122/71 96
[2020-08-02] MEDS ORDERED: WARFARIN SOD 4 MG TAB PO SCH (16:00)
--- NOTE | 2020-08-02 17:08 | Hospitalist Progress Note ---
Date of Service August 02, 2020 Assessment & Plan (1) Acute on chronic heart failure with preserved ejection fraction (HFpEF): Has responded well to IV diuresis over the past couple days (7L out). Cont with this now, monitor renal function and lytes with daily BMP. (2) Cellulitis of right lower extremity: She has a light pink area to her RLE and a pinpoint wound which is covered in a think bandage because of the amount of drainage present. This appears improved. Cont Ancef for now with plan to transition to oral abx soon. (3) Aortic stenosis, severe: Follows [facility] cardiology recent echo 06/2020 revealed severe calcific outpatient followup to consider fixing this per cardiology. (4) BRBPR (bright red blood per rectum): having these symptoms for months now, h/o colonoscopy in Jan 2020 showing internal hemorrhooids and sigmoid diverticulosis. H/H and hemodynamics remain stable but she is now reporting having significant pain with BMs. Will consider consulting GI. (5) Left ureteral stone: Status post cystoscopy, laser treatment and stent exchange on 07/20/[address] Sanchez Patient she is to have a stent removed 08/08 Will obtain renal ultrasound to ensure stent patency (6) Dyslipidemia: cont statin per home regimen. 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 (9) DVT prophylaxis: Continue warfarin, INR therapeutic Full Code Disposition: cont telemetry monitoring Alice Granados DO [facility] Hospitalist Admission and Anticipated Discharge Date Admission Date: August 01, 2020 Subjective 74 yo F presented with fluid overload and found to have acute heart failure. She has been diuresing well under the direction of cardiology and is feeling well. Denies chest pain or SOB. She does report new onset pain with bowel movements that is gone with completion of the movement. This has been associated with bright red blood per her report for the past two months, but now she is reporting clots in her stool. Review of Systems Review of Systems: All systems reviewed & are unremarkable except as noted in Subjective Physical Exam Physical Exam: CONSTITUTIONAL: morbidly obese, vitals as above, generally well-appearing EYES: normal conjunctivae, no scleral icterus ENT: external ear and nose normal, oropharynx clear, MMM RESPIRATORY: clear to auscultation bilaterally, no crackles, rales or wheezes, normal respiratory effort CARDIOVASCULAR: regular rate and rhythm, S1 and 2 heard without murmurs, gallops or rubs, no JVD, 2+ peripheral edema to distal knees GASTROINTESTINAL: large pannus, soft, nontender, nondistended, no guarding MUSCULOSKELETAL: strength 5/5 throughout, head is normocephalic and atraumatic SKIN: warm and dry, light pink erythema to skin on lower right leg. NEUROLOGIC: No facial palsy, no dysarthria. CN 2-12 grossly intact, no sensory deficit, normal cognition, normal speech, no tremor PSYCHIATRIC: alert cooperative and oriented to person, place and time. Results & Data Results & Data ([facility]) Vital Signs (Past 12 Hours) Vital Signs Temp Pulse Pulse Resp BP Pulse Ox 08/02/20 11:35 36.9 C 66 18 126/68 95 08/02/20 07:51 36.7 C 69 20 138/76 96 08/02/20 07:14 63 Laboratory Results Short CBC 08/01/20 08/02/20 Range/Units 19:29 07:16 WBC 7.06 (4.8-10.8) K/uL Hgb 9.7 L 10.1 L (12.0-16.0) g/dL Hct 30.5 L 32.1 L (37-47) % Plt Count 242 (130-400) K/uL BMP 08/02/20 07:16 Sodium 144 Potassium 3.3 L Chloride 108 H Carbon Dioxide 31 BUN 22 H Creatinine 0.96 Glucose 79 Calcium 7.5 L Medications Administered Current Inpatient Medications Acetaminophen (Acetaminophen 325 Mg Tab) 650 mg PO Q4H PRN PRN Reason: Pain or Fever Stop: 08/31/20 11:52 Al Hydrox/Mg Hydrox/Simethicone (Aluminum/Magnesium Susp 30 Ml Udc) 15 ml PO Q4H PRN PRN Reason: Dyspepsia Stop: 08/31/20 11:52 Allopurinol (Allopurinol 100 Mg Tab) 100 mg PO BID NAY Stop: 08/31/20 20:59 Last Admin: 08/02/20 08:15 Dose: 100 mg Documented by: Ascorbic Acid (Ascorbic Acid 500 Mg Tab) 250 mg PO BID NAY Stop: 08/31/20 20:59 Last Admin: 08/02/20 08:14 Dose: 250 mg Documented by: Atorvastatin Calcium (Atorvastatin 40 Mg Tab) 40 mg PO PM NAY Stop: 08/31/20 20:59 Last Admin: 08/01/20 20:27 Dose: 40 mg Documented by: Bupropion HCl (Bupropion Sr 100 Mg Tabcr) 200 mg PO BID NAY Stop: 08/31/20 20:59 Last Admin: 08/02/20 09:33 Dose: 200 mg Documented by: Buspirone HCl (Buspirone 5 Mg Tab) 5 mg PO TID NAY Stop: 08/31/20 13:59 Last Admin: 08/02/20 14:21 Dose: 5 mg Documented by: Calcium Carbonate (Calcium Carbonate 500 Mg Chewable Tab) 500 mg PO UD PRN PRN Reason: Heartburn Stop: 08/31/20 12:07 Duloxetine HCl (Duloxetine Hcl 20 Mg Cap) 40 mg PO HS NAY Stop: 08/31/20 20:59 Last Admin: 08/01/20 20:23 Dose: 40 mg Documented by: Cefazolin Sodium (Ancef 1000mg) 1,000 mg in 7.5 mls @ 2.5 mls/min IV Q8H NAY Stop: 08/08/20 15:59 Last Admin: 08/02/20 15:31 Dose: 2.5 mls/min Documented by: Furosemide 40 mg/ Syringe 4 mls @ 4 mls/min IV BID17 NAY Stop: 08/31/20 16:59 Last Admin: 08/01/20 16:36 Dose: 4 mls/min Documented by: Furosemide 40 mg/ Syringe 4 mls @ 4 mls/min IV ONE ONE Stop: 08/02/20 19:01 Lactobacillus Acidophilus (Lactobacillus Acidophilus (Floranex) Tab) 4 tab PO QAM NAY Stop: 09/01/20 08:59 Last Admin: 08/02/20 08:13 Dose: 4 tab Documented by: Magnesium Hydroxide (Magnesium Hydroxide Susp 30 Ml Udc) 30 ml PO Q12H PRN PRN Reason: Constipation Stop: 08/31/20 11:52 Metoprolol Succinate (Metoprolol Succ 25mg Ext Rel Tab) 12.5 mg PO BID NAY Stop: 08/31/20 20:59 Last Admin: 08/02/20 08:13 Dose: 12.5 mg Documented by: Multivitamins/Folic Acid/Vitamin C (Flintstones Complete Chewable Tab) 1 tab PO BID NAY Stop: 08/31/20 20:59 Last Admin: 08/02/20 08:13 Dose: 1 tab Documented by: Multivitamins/Minerals (Calcium 600mg + Vit D 400 Iu Tab) 1 tab PO BID NAY Stop: 08/31/20 20:59 Last Admin: 08/02/20 08:13 Dose: 1 tab Documented by: Ondansetron HCl (Ondansetron Inj 2 Mg/Ml 2 Ml Vial) 4 mg IV Q6H PRN PRN Reason: Nausea Stop: 08/31/20 11:52 Oxybutynin Chloride (Oxybutynin Chloride 5 Mg Tab) 5 mg PO BID [facility] Stop: 08/31/20 20:59 Last Admin: 08/02/20 08:13 Dose: 5 mg Documented by: Oxycodone HCl (Oxycodone Hcl Ir 5 Mg Tab (Immediate Release)) 5 mg PO Q4 PRN PRN Reason: Pain Stop: 08/15/20 12:09 Last Admin: 08/02/20 15:31 Dose: 5 mg Documented by: Pantoprazole Sodium (Pantoprazole 40 Mg Tab) 40 mg PO QAM [facility] Stop: 09/01/20 08:59 Last Admin: 08/02/20 08:13 Dose: 40 mg Documented by: Polyethylene Glycol (Polyethylene (Miralax) 17 Gm Pack) 17 gm PO DAILY PRN PRN Reason: Constipation Stop: 08/31/20 11:52 Potassium Chloride (Potassium Chloride 10 Meq Tabcr) 10 meq PO DAILY [facility] Stop: 09/01/20 08:59 Last Admin: 08/02/20 08:13 Dose: 10 meq Documented by: Spironolactone (Spironolactone 25 Mg Tab) 25 mg PO QAM [facility] Stop: 09/01/20 11:14 Last Admin: 08/02/20 12:14 Dose: 25 mg Documented by: Vitamin D (Cholecalciferol 1,000 Units 25 Mcg Tab) 2,000 units PO QAM [facility] Stop: 09/01/20 08:59 Last Admin: 08/02/20 08:15 Dose: 2,000 units Documented by: Warfarin Sodium (Warfarin Sod 2 Mg Tab) 2 mg PO TuFr@1600 [facility] Stop: 08/31/20 15:59 Last Admin: 08/01/20 16:36 Dose: 2 mg Documented by: Warfarin Sodium (Warfarin Sod 4 Mg Tab) 4 mg PO SuMoWeThSa@1600 [facility] Stop: 09/01/20 15:59 Last Admin: 08/02/20 15:31 Dose: 4 mg Documented by:
[2020-08-02] MEDS: DULOXETINE HCL 20 MG CAP PO SCH (20:28)
[2020-08-02] MEDS: ATORVASTATIN 40 MG TAB PO SCH (20:28)
[2020-08-03 03:07] VITALS: O2SAT 95
[2020-08-03 06:26] LABS: Hematocrit (blood only) 29.2 % (37-47); Hemoglobin 9.3 g/dL (12.0-16.0); Mean Corpuscular Hemoglobin 30.7 pg (25-34); Mean Corpuscular Hgb Conc 31.8 g/dL (32-36); Mean Corpuscular Volume 96.4 fL (80-100); Mean Platelet Volume 10.2 fL (7.4-10.4); Platelet Count 243 K/uL (130-400); RDW Coefficient of Variation 16.2 % (11.5-14.5); RDW Standard Deviation 56.5 fL (36.4-46.3); Red Blood Count 3.03 M/uL (4.2-5.4); White Blood Count 6.49 K/uL (4.8-10.8)
[2020-08-03 06:30] LABS: Prothrombin Time 20.3 Seconds (9.0-12.0)
[2020-08-03 06:56] LABS: BUN Creatinine Ratio 22.6 (10-20); Calcium 7.5 mg/dl (8.5-10.1); Creatinine Clr Calc Pharmacy 71.7 ml/min; Est GFR (African American) 77.7; Magnesium 1.7 mg/dl (1.8-2.4); Potassium 3.7 mmol/L (3.5-5.1)
[2020-08-03] MEDS: MULTIVITAMIN CHEWABLE TAB PO SCH (08:08)
[2020-08-03] MEDS: CALCIUM 600MG + VIT D 400 IU TAB PO SCH (08:08)
[2020-08-03] MEDS: LACTOBACILLUS ACIDOPHILUS (FLORANEX) TAB PO SCH (08:09)
[2020-08-03] MEDS: ASCORBIC ACID 500 MG TAB PO SCH (08:09)
[2020-08-03] MEDS: PANTOprazole 40 MG TAB PO SCH (08:10)
[2020-08-03] MEDS: BuPROPion SR 100 MG TABCR PO SCH (08:10)
[2020-08-03] MEDS: SPIRONOLACTONE 25 MG TAB PO SCH (08:11)
[2020-08-03] MEDS: CHOLECALCIFEROL 1,000 UNITS 25 MCG TAB PO SCH (08:12)
[2020-08-03] MEDS: METOPROLOL SUCC 25MG EXT REL TAB PO SCH (08:12)
[2020-08-03] MEDS: POTASSIUM CHLORIDE 10 MEQ TABCR PO SCH (08:13)
[2020-08-03] MEDS: allopurinoL 100 MG TAB PO SCH (08:13)
[2020-08-03] MEDS: OXYBUTYNIN CHLORIDE 5 MG TAB PO SCH (08:13)
[2020-08-03] MEDS: CEFAZOLIN 1000MG 1,000 MG/7.5 ML SYR IV SCH (08:14)
[2020-08-03] MEDS: OXYCODONE HCL IR 5 MG TAB (IMMEDIATE RELEASE) PO PRN (10:25)
[2020-08-03] MEDS: MAGNESIUM SULFATE / D5W 1 GM/100 ML BAG IV SCH (11:06)
[2020-08-03 11:37] VITALS: BP 118/76; TEMP 98.1
--- NOTE | 2020-08-03 13:29 | Cardiology Progress Note ---
Date of Service August 03, 2020 Assessment & Plan (1) Acute on chronic heart failure with preserved ejection fraction (HFpEF): Patient is a 74-year-old female with complex underlying issues as noted presents with acute on chronic decompensated right greater than left diastolic heart failure secondary to valvular disease. Symptoms of volume overload and edema possibly worsened by increased volume intake aid in urinary stone passing. Patient has responded to IV diuretics nicely. We will continue furosemide at 40 mg daily, spironolactone 25 mg p.o. daily usual CHF instructions discussed (2) Aortic stenosis, severe: Patient scheduled for valve clinic evaluation August 14 (3) Left ureteral stone: Status post laser lithotripsy. Patient without current complaint, anticipate removal of urinary stent on 08/08/2020 Admission and Anticipated Discharge Date Admission Date: August 02, 2020 Subjective Patient seen and examined, chart medications telemetry reviewed. Clinically improved after 2 days of diuretics nearly 10 L diuresis. Renal functions remain preserved overall feeling improved. No fevers or chills Review of Systems Review of Systems: All systems reviewed & are unremarkable except as noted in HPI & below Physical Exam Constitutional: WD/WN, vitals as above + morbidly obese Eyes: PERRL, conjunctivae normal, anicteric sclerae ENMT: external ear and nose normal, oropharynx normal Neck: trachea midline, no thyromegaly Respiratory: Auscultation: + diminished lung sounds; no rales Cardiovascular: Rate/Rhythm: regular rate and regular rhythm Heart Sounds: normal S1, normal S2 and + murmur (Grade 3/6 harsh systolic murmur); no gallop Palpation: normal PMI Vessels: normal carotid upstroke and radial pulses present; no JVD and no carotid bruit Extremities: + edema (1+ lower extremity edema) Gastrointestinal (Abdomen): normal bowel sounds, soft, nontender, no hepatosplenomegaly Musculoskeletal: no cyanosis or clubbing, extremities motor strength 5/5 Neurologic: PERRL, EOMI, accommodation nl, no face palsy, no dysarthria Psychiatric: A+Ox3, euthymic affect Results & Data ([facility]) Vital Signs (Past 12 Hours) Vital Signs Temp Pulse Pulse Resp BP BP Pulse Ox 08/03/20 11:35 36.7 C 66 16 118/76 95 08/03/20 07:12 36.5 C 66 16 114/71 95 08/03/20 03:44 69 09/24/20 03:00 36.6 C 67 20 107/68 95 Laboratory Results Laboratory Results - last 24 hr 08/03/20 08/03/20 08/03/20 05:52 05:52 05:52 WBC 6.49 RBC 3.03 L Hgb 9.3 L Hct 29.2 L MCV 96.4 MCH 30.7 MCHC 31.8 L RDW Std Deviation 56.5 H RDW Coeff of Karla 16.2 H Plt Count 243 MPV 10.2 PT 20.3 H INR 2.0 H Sodium 144 Potassium 3.7 Chloride 106 Carbon Dioxide 34 H Anion Gap 4.0 BUN 19 H Creatinine 0.86 Est Cr Clr Drug Dosing 71.7 Est GFR ( Amer) 77.7 Est GFR (Non-Af Amer) 67.0 BUN/Creatinine Ratio 22.6 H Glucose 74 Calcium 7.5 L Magnesium 1.7 L
--- NOTE | 2020-08-03 13:44 | Discharge Summary ---
Date of Service August 03, 2020 Admission HPI Per Admitting Provider This is a 74-year-old female who has significant past medical history of HTN, HLD, severe calcific aortic valve stenosis, factor V Leiden deficiency, history of recurrent DVT, on long-term anticoagulation, history of left prosthetic hip infection now wheelchair-bound, GERD, gout, history of gastric bypass who presents to ED secondary to "I am filling up with fluid since yesterday." Of significance patient did have surgical procedure for left ureteral stone on 07/20. She underwent cystoscopy with laser destruction and stent placement by Dr. Sanhcez. She tolerated the procedure well and is to have stent out 08/08. She states since yesterday she has been filling up with fluid everywhere. She notes increased lower extremity swelling, arm swelling, bloating, early satiety. She also notes decreased urinary frequency and output, increased bright red blood per rectum and passing clots and generalized weakness. She also admits to fluid draining from left leg and increased redness to right lower extremity. At baseline she is wheelchair-bound. She denies any fever, chills, sweats, lightheadedness, dizziness, chest pain, shortness of breath, cough, orthopnea, PND, nausea, vomiting, abdominal pain. She denies any hematuria or dysuria. She follows with [facility] and had a colonoscopy 01/2020. She was found to have internal hemorrhoids and sigmoid diverticulosis. She has been complaining of bright red blood per rectum for the past several weeks but over the past week has noted passing significant bright red blood clots. She also admits to having recent blood work by Dr. Shea stating that her ferritin is very high in the 3000. She has been compliant with her BiPAP at night. She also is taking 20 mg of Lasix daily. She admits to drinking at least 64 ounces of water for the past week secondary to having her kidney stone. In ED patient remained hemodynamically stable, blood pressure 156/84 upon my evaluation. She is saturating well on room air. She is not in any distress. She is afebrile and WBC is 9.69, H&H stable at 10.9 and 34.6, INR 2.3, K3.5, BUN 22, creatinine 0.83, proBNP 6495. Chest x-ray was negative for acute process. In ED patient did receive IV Zosyn secondary to concern for lower extremity cellulitis as well as 40 mg of IV Lasix. Per ER physician patient was heme positive. Admission Exam Per Admitting Provider Constitutional: WD/WN, obese, female, vitals as above, NAD, sitting up in bed, pleasant, conversing easily Head: Normocephalic, Atraumatic Eyes: PERRL, conjunctivae normal, anicteric sclerae ENMT: external ear and nose normal, oropharynx normal Neck: trachea midline, no thyromegaly normal visual inspection Respiratory: normal respiratory effort, lungs clear to auscultation, no wheeze, rales, rhonchi. Normal insp/exp effort, no accessory muscle use Cardiovascular: RRR, 3/6 harsh JAMAL best RUSB, bilateral lower extremity pitting edema, right pretibial erythematous and warm to palpation, left pretibial area with clear drainage Vessels: no JVD or carotid bruit Chest: normal inspection of chest Abdomen: Obese abdomen, normal bowel sounds, soft, nontender, no hepatosplenomegaly Musculoskeletal: no cyanosis or clubbing, patient with limited range of motion to left lower extremity otherwise active range of motion x3, strength intact in bilateral lower extremities 5/5 Skin: Right lower extremity pretibial erythema and warmth, warm and dry normal turgor Neurologic: PERRL, EOMI, accommodation nl, no face palsy, no dysarthria CN's II-XI intact bilaterally and moves all extremities Psychiatric: A+Ox3, euthymic affect Lymphatic: no cervical or axillary lymphadenopathy : deferred Principal Diagnosis Acute heart failure with preserved ejection fraction LLE cellulitis Hematochezia Severe Aortic Stenosis L ureteral stone Discharge Exam CONSTITUTIONAL: morbidly obese, vitals as above, generally well-appearing EYES: normal conjunctivae, no scleral icterus ENT: external ear and nose normal, oropharynx clear, MMM RESPIRATORY: clear to auscultation bilaterally, no crackles, rales or wheezes, normal respiratory effort CARDIOVASCULAR: regular rate and rhythm, S1 and 2 heard without murmurs, gallops or rubs, no JVD, peripheral edema is much better GASTROINTESTINAL: large pannus, soft, nontender, nondistended, no guarding MUSCULOSKELETAL: strength 5/5 throughout, head is normocephalic and atraumatic SKIN: warm and dry, light pink erythema to skin on lower right leg. NEUROLOGIC: No facial palsy, no dysarthria. CN 2-12 grossly intact, no sensory deficit, normal cognition, normal speech, no tremor PSYCHIATRIC: alert cooperative and oriented to person, place and time. Discharge Data Allergies Allergy/AdvReac Type Severity Reaction Status Date / Time adhesive Allergy Intermediate BLISTERS Verified 08/01/20 08:25 WITH STERI-STRIPS Iodinated Contrast Media Allergy Intermediate hive Verified 08/01/20 08:25 [Iodinated Contrast- Oral and IV Dye] naproxen Allergy Intermediate SWELLING - Verified 08/01/20 08:25 TOLERATES ESTEVES-[address] HALL ciprofloxacin Allergy Mild RASH Verified 08/01/20 08:25 Quinolones Allergy Mild NEUROLOGIC Verified 08/01/20 08:25 SYMPTOMS Consultations 08/01/20 09:46 ED Decision to Admit Stat 08/01/20 10:25 Consult Cardiology Routine 08/01/20 11:53 Consult Case Management - Discharge Planning Routine Ordered Studies 08/01/20 14:30 US renal/blad retro comp Routine Hospital Course (1) Acute on chronic heart failure with preserved ejection fraction (HFpEF): (2) Cellulitis of right lower extremity: (3) Aortic stenosis, severe: (4) BRBPR (bright red blood per rectum): (5) Left ureteral stone: 74-year-old female admitted with fluid overload. She was noted to hospital service and cardiology was consulted. She was put on twice daily diuretics with caution as she is a history of aortic stenosis. Ramírez was placed for accurate fluid management. She diuresed approximately 9 to 10 L overall during the hospitalization and was clinically improved by the time of discharge. She also had a cellulitis of the right lower extremity which was treated successfully with Ancef with transition to oral Keflex. With respect to her aortic stenosis which was severe she follows with [facility] cardiology. Recent echocardiogram performed on 08/04/20 revealed severe concentric left ventricular hypertrophy, prior apical wall motion abnormality which is resolved, ejection fraction 60 to 65% and grade 1 diastolic dysfunction. Severe calcific aortic valve stenosis was noted. The patient also had a left ureteral stone and was status post laser lithotripsy without issues in the hospital. She anticipated removal of the urinary stent on 08/08/2020. At time of discharge she was mentating ambulating at baseline and tolerating p.o. She was hemodynamically stable and afebrile and oxygenating well on room air. She was sent home in stable condition with close primary care follow-up recommended. She will also follow with a valve specialist in [place] per cardiology recommendations. She was discharged on 40 mg of Lasix daily and was started on spironolactone 25 mg daily in the hospital. Repeat blood work in 1 to 2 weeks by her primary care doctor was recommended. Lastly, she does have a history of intermittent hematochezia described as bright red blood per rectum. She has not seen GI for this but did undergo a colonoscopy in January 2020 which revealed evidence of internal hemorrhoids. I peripherally discussed this with GI who recommended a trial of Anusol nightly with close follow-up with GI as outpatient. She does have anemia and this should be followed/worked up further by her primary care doctor as outpatient. Total Time Total Time Spent Total Time Spent (In Minutes): 60 Total Time Includes: Examination of the Patient, Discharge Planning, Medication Reconciliation and Communication With Other Providers Discharge Plan Discharge Items Patient Disposition: Home - Home Health Services Reason For Visit: LLE CELLULITIS Discharge Diagnosis: Acute heart failure with preserved ejection fraction LLE cellulitis Hematochezia Severe Aortic Stenosis L ureteral stone Condition on Discharge: Good Activity: Resume your previous activity Non-emergency contact: Primary Care Provider and Transit Survey Worker Call non-emergency contact if: you have any medication questions, your symptoms worsen, you have a fever, your wound has increased redness, your wound has increased drainage and your wound pain has increased Follow-up/Referrals: Sadi Shea DO [Primary Care Provider] - 08/09/20 12:00 pm (Date & Time 08/09/2020 12:00 PM Provider Alli Amos MD Department General Internal Medicine [facility] ) Diet: Low Sodium (2gm) Addtl Attending Provider Instructions: Amilcar MORA with [facility] will see you on Tuesday 08/07 at 1 PM. Berkley Goldstein RN with [facility] will see you on Saturday 08/11 at 8:30am. Please take all medications as instructed on discharge list below. I have reached out to the [facility] gastroenterology nurse practitioner who will have her schedule her contact you to be seen in the office soon. In the meantime it is recommended that you try 2 weeks of Anusol suppositories in the evenings to help with your bleeding. Please follow-up with the specialty laboratory phlebotomist as instructed by Dr. Stroud. It is recommended that you follow-up with your primary care doctor at the time and date above to ensure you are doing well on the new medications and to perform blood work to ensure your kidney function and electrolytes are stable. This appointment will also be important to ensure your left lower extremity cellulitis has completely resolved on antibiotics. It was a pleasure taking care of you! Please call if you have any questions or problems. [facility] can [facility] 24 hours a day by calling [phone]. Take care of yourself. Alice Granados DO [facility] Addtl Medicinal Chemist Provider Instructions: Call [phone] and go to the Emergency Room if: * You have tightness or pain in your chest that does not go away with rest or Nitroglycerin * You are very short of breath even with rest Call your doctor if any of the following symptoms or problems start or get worse: * Shortness of breath or difficulty breathing * Wake up at night short of breath * Chest pain * Cough * Swelling of your hands, fee, or legs * More fatigued or tired with your normal activity * Palpitations - sudden fast heart beats WEIGHT * Weigh yourself every morning after using the bathroom. * Use the same scale. * Wear the same amount of clothing. * Write your weight down on your chart. * Call your doctor if you gain more than 2-3 pounds in 1-2 days. MEDICATIONS * Use this discharge instruction sheet for instructions. * Take your medications at the time your doctor ordered. * Do not skip a dose of your medicines. * If you miss a dose of medicine, take as soon as possible, but DO NOT DOUBLE A DOSE. * Read your medicine information when you get home. * Know all of the side effects of your medicine. * Call your doctor's office if you have any side effects. * Be sure all of your doctors know what medicine and herbs you take (including cold, flu, and herbal medicine). * Pain Medicine: If you do not get relief from your pain, please call your doctor for help. Take the following with you to your follow-up doctor appointments: * Weight Chart * Medication List * List of questions Do not drink excessive alcohol, beer or wine. Pending Studies at Discharge: No Stand-Alone Forms: My [facility] Medications and DC Order Prescriptions: New spironolactone 25 mg Tablet 25 mg PO QAM Qty: 30 RF: 1 furosemide [Lasix] 40 mg tablet 40 mg PO DAILY Qty: 30 RF: 1 cephalexin [Keflex] 500 mg capsule 500 mg PO Q6H Qty: 28 RF: 0 hydrocortisone acetate [Anusol-HC] 25 mg suppository 25 mg OH HS Qty: 24 RF: 0 Continued Flintstones Complete Tablet,Chewable 1 tab PO BID RF: 0 calcium carbonate [Tums Extra Strength Smoothies] 300 mg (750 mg) Tablet,Chewable 750 mg PO UD PRN (Reason: Heartburn) RF: 0 omeprazole 20 mg Tablet,Delayed Release (Dr/Ec) 20 mg PO QAM RF: 0 nystatin 100,000 unit/gram powder 1 appln TOP BID PRN (Reason: rash) RF: 0 atorvastatin 40 mg Tablet 40 mg PO PM RF: 0 oxybutynin chloride 5 mg Tablet 5 mg PO BID RF: 0 bupropion HCl 200 mg Tablet Sustained-Release 12 Hr 200 mg PO BID RF: 0 cholecalciferol (vitamin D3) [Vitamin D3] 50 mcg (2,000 unit) Tablet 2,000 unit PO QAM RF: 0 calcium carbonate-vitamin D3 [Calcium 600 with Vitamin D3] 600 mg(1,500mg) - 500 unit Capsule 1 cap PO BID RF: 0 oxycodone [Roxicodone] 5 mg Tablet 5 mg PO Q4 PRN (Reason: Pain) RF: 0 buspirone 5 mg Tablet 5 mg PO TID RF: 0 ascorbic acid (vitamin C) [Vitamin C] 250 mg Tablet 250 mg PO BID RF: 0 ondansetron 4 mg Tablet,Disintegrating 4 mg PO Q8H PRN (Reason: Nausea) RF: 0 allopurinol 100 mg Tablet 100 mg PO BID RF: 0 duloxetine [Cymbalta] 20 mg Capsule,Delayed Release(Dr/Ec) 40 mg PO HS RF: 0 cyanocobalamin (vitamin B-12) 1,000 mcg/mL Kit 1,000 mcg IM UD RF: 0 docusate sodium 100 mg capsule 100 mg PO BID PRN (Reason: constipation) RF: 0 potassium chloride [K-Tab] 10 mEq tablet extended release 10 meq PO DAILY RF: 0 Probiotic 3 billion cell Capsule 3,000 mmu cells PO QAM RF: 0 warfarin 4 mg tablet 4 mg PO SUMOWETHSA RF: 0 metoprolol succinate 25 mg tablet extended release 24 hr 12.5 mg PO BID RF: 0 warfarin 4 mg Tablet 2 mg PO TUFR RF: 0 Discontinued furosemide 20 mg Tablet 20 mg PO QAM RF: 0 Discharge Orders: Discharge Order (Routine); Ordered 08/03/20 Ordered By: Alice Granados Admission Data Admit Date/Time: 08/02/20 17:10 Attending Provider: Alice Granados Admit Provider: Janett Lyman Primary Care Provider: Sadi Shea Other Providers: Janett Lyman ; Joaquin Stroud ; [facility] Other Interventions: Discharge Summary Assessment (RN) Last Done: 08/03/20 15:18
[2020-08-03 15:19] VITALS: PULSE 62
== END 2020-08-03 16:29 | disposition home health service (06) | DRG 292 ==
LOC: 2N 07:13 → ED 07:13 → SUATTDRO 10:00 → 2N 11:06

== ENCOUNTER 2020-09-27 07:07 | Inpatient (IN) ==
[2020-09-27] MEDS ORDERED: ceFAZolin 3,000 MG in DEXTROSE 5% 50 ML IV STA (08:00)
[2020-09-27] MEDS ORDERED: ONDANSETRON INJ 2 MG/ML 2 ML VIAL IV STA (08:00)
--- NOTE | 2020-09-27 08:31 | XRay Report ---
XR chest 1V portable CLINICAL HISTORY: weakness COMPARISON STUDY: Chest radiograph August 01, 2020. FINDINGS: Lung volumes are normal. Minimal left basilar opacity favors atelectasis. There is no pneum othorax or pleural effusion. Cardiac size is stable with mitral annular calcification. Mediastinal co ntours are normal. There is no evidence for pulmonary edema. 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 Old left rib f ractures are incidentally noted. IMPRESSION: No acute cardiopulmonary findings. ACT 112: Negative or not required by law. Electronically signed by: Duke Terry M.D. 09/27/2020 8:30 AM
[2020-09-27 09:55] LABS: Mean Corpuscular Hgb Conc 32.1 g/dL (32-36); Mean Platelet Volume 11.5 fL (7.4-10.4); Platelet Count 235 K/uL (130-400)
[2020-09-27 10:04] LABS: Basophils # (auto) 0.01 K/uL (0-0.2); Basophils % (auto) 0.1 %; Hematocrit (blood only) 29.6 % (37-47); Hemoglobin 9.5 g/dL (12.0-16.0); Immature Granulocytes # (auto) 0.03 K/uL (0.00-0.02); Immature Granulocytes % (auto) 0.2 %; Lymphocytes # (auto) 0.39 K/uL (1.2-3.4); Lymphocytes % (auto) 2.7 %; Mean Corpuscular Hemoglobin 30.3 pg (25-34); Mean Corpuscular Volume 94.3 fL (80-100); Monocytes # (auto) 0.32 K/uL (0.11-0.59); Monocytes % (auto) 2.2 %; Neutrophils # (auto) 13.65 K/uL (1.4-6.5); Neutrophils % (auto) 94.8 %; RDW Coefficient of Variation 17.6 % (11.5-14.5); Red Blood Count 3.14 M/uL (4.2-5.4)
[2020-09-27 11:54] LABS: INR 1.5 (0.9-1.1); Prothrombin Time 15.1 Seconds (9.0-12.0)
[2020-09-27 11:54] LABS: Appearance Urine Cloudy (Clear); Bacteria Urine Automated Negative (Negative); Bilirubin Urine Negative (Negative); Blood Urine Negative (Negative); Color Urine Yellow; Epithelial Cell Urine Auto 0-5 /lpf (0-5); Glucose Urine UA Negative (Negative); Ketones Urine Negative (Negative); Leukocyte Esterase Urine 2+ (Negative); Nitrite Urine Positive (Negative); Protein Urine Negative (Negative); RBC Urine Automated 0-4 /hpf (0-4); Specific Gravity Urine 1.014 (1.000-1.030); Urobilinogen Urine Negative (Negative); WBC Urine Automated >30 /hpf (0-5)
--- NOTE | 2020-09-27 11:58 | Emergency Department Note ---
History of Present Illness General Chief complaint: Illness Stated complaint: WEAKNESS/HEADACHE/NAUSEA/DIARRHEA Time Seen by Provider: 09/27/20 07:42 Source: patient Mode of arrival: EMS Limitations: no limitations History of Present Illness Provider complaint: Weakness Maximum Pain Intensity: 2 Zentz to the ED with a chief complaint of not feeling well for the past 2 days. She states that she was too weak to get in the van to come to the hospital for procedure today. She was supposed to have a stent placed for kidney stones. The patient has seen Dr. Pabon for this. She states that she has been on Lasix and has had decreased p.o. intake. The patient also states that she has had some diarrhea once per day sometimes associated with blood for the past month or so. The patient is currently on Lovenox. She is typically on warfarin but was placed on Lovenox for the procedure. She states that a week ago a skillet fell on her left leg. It has been swollen and warm since then. A urine culture on the showed E. coli that is sensitive to everything but Augmentin/ampicillin . The patient has no additional complaints at this time. Home Medications Medication Instructions Recorded Confirmed Type allopurinol 100 mg PO BID 06/23/19 09/27/20 History ascorbic acid (vitamin C) [Vitamin 250 mg PO BID 06/23/19 09/27/20 History C] buspirone 5 mg PO TID 06/23/19 09/27/20 History cyanocobalamin (vitamin B-12) 1,000 mcg IM UD 06/23/19 09/27/20 History duloxetine [Cymbalta] 40 mg PO HS 06/23/19 09/27/20 History ondansetron 4 mg PO Q8H PRN 06/23/19 09/27/20 History oxycodone [Roxicodone] 5 mg PO Q4 PRN 06/23/19 09/27/20 History Flintstones Complete 1 tab PO QAM 08/27/19 09/27/20 History atorvastatin 40 mg PO PM 12/31/19 09/27/20 History bupropion HCl [Wellbutrin SR] 200 mg PO BID 12/31/19 09/27/20 History calcium carbonate [Tums Extra 750 mg PO UD PRN 12/31/19 09/27/20 History Strength Smoothies] calcium carbonate-vitamin D3 1 cap PO BID 12/31/19 09/27/20 History [Calcium 600 with Vitamin D3] cholecalciferol (vitamin D3) 2,000 unit PO QAM 12/31/19 09/27/20 History [Vitamin D3] nystatin 1 appln TOP BID PRN 12/31/19 09/27/20 History omeprazole 20 mg PO QAM 12/31/19 09/27/20 History oxybutynin chloride 5 mg PO BID 12/31/19 09/27/20 History Probiotic 3,000 mmu cells PO QAM 06/21/20 09/27/20 History potassium chloride [K-Tab] 10 meq PO QAM 06/21/20 09/27/20 History warfarin 4 mg PO SUMOWETHSA 06/21/20 09/27/20 History warfarin 2 mg PO TUFR 08/01/20 09/27/20 History hydrocortisone acetate [Anusol-HC] 25 mg AR HS #24 ea 08/03/20 09/27/20 Rx cefdinir 300 mg PO BID 10 Days #19 cap 09/20/20 09/27/20 Rx enoxaparin [Lovenox] 80 mg SUBCUT Q12H 09/25/20 09/27/20 History furosemide 20 mg PO PM 09/25/20 09/27/20 History furosemide [Lasix] 40 mg PO QAM 09/25/20 09/27/20 History metoprolol succinate 12.5 mg PO BID 09/25/20 09/27/20 History Allergies Allergy/AdvReac Type Severity Reaction Status Date / Time adhesive Allergy Intermediate BLISTERS Verified 09/27/20 07:42 WITH STERI-STRIPS Iodinated Contrast Media Allergy Intermediate hive Verified 09/27/20 07:42 [Iodinated Contrast- Oral and IV Dye] naproxen Allergy Intermediate SWELLING - Verified 09/27/20 07:42 TOLERATES ESTEVES-[address] HALL ciprofloxacin Allergy Mild RASH Verified 09/27/20 07:42 Quinolones Allergy Mild NEUROLOGIC Verified 09/27/20 07:42 SYMPTOMS Past Med/Surg History Medical History Aortic stenosis, severe 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 Per cardiology consult , "Only mild left ventricular dysfunction and suspect stress mediated etiology rather than acute ischemic event. Patient on appropriate beta-sheryl therapy." Apical wall motion abnormality resolved on 08/04/20 ECHO Atrial fibrillation follows with Dr. Bui> NO PACER Bleeding hemorrhoids TO BE GETTING SURGERY FOR THIS IN NEAR FUTURE Carotid artery stenosis [place] , 50%, [place] 50-69% by 04/09/19 doppler Chronic diastolic heart failure Degenerative disc disease Depression Dyslipidemia Factor 5 Leiden mutation, heterozygous recurrent PE/DVT; status post IVC filter placement, on Coumadin Frequent UTI GERD (gastroesophageal reflux disease) Gout [place] filter in place History of COPD mild--inhaler/nebulizer prn History of esophageal disorder esophageal diverticulum History of peripheral neuropathy bilateral feet History of stress incontinence Hx of cancer of uterus diagnosed 03/2019---radiation only Hx of iron deficiency anemia Hypertension Intestinal disorder post op malabsorption Non-ST elevation [place] (NSTEMI) On anticoagulant therapy warfarin daily Pes planus Post traumatic stress disorder Pulmonary embolism hx of bilateral ~12/12 FFL Sleep apnea CPAP Spinal stenosis Stroke 06/03/2019 after I&D left hip--vision loss in left eye--no neurologist Vision abnormalities r peripheral vision loss( posterior ischemic optic neuropathyleft eye), left side altered vision like looking through a screen door Weakness Wheelchair dependence Surgical History H/O cystoscopy 06/23/20 and 07/20/20 [facility] History of arthroplasty of left hip 2006 @ [facility]--infected after, multiple sx's History of biopsy of bladder benign History of colonoscopy with polypectomy History of incision and drainage 05/2019 of left hip [place] [facility] [facility] [place] of left shoulder replacement History of right hip replacement 2005 @ [facility] History of tonsillectomy and adenoidectomy History of tooth extraction Hx of gastric bypass Hx of tubal ligation Hx of umbilical hernia repair mesh inserted S/P colon resection 1984 @ [facility] complete sigmoid removed d/t diverticular disease Family History Mother , age 91 Heart disease Family hx colonic polyps Father , age 42 Factor V deficiency Myocardial infarction Sister No problems noted. Sister Endometrial cancer Brother Family hx colonic polyps Brother , age 50 Meningitis Brother No problems noted. Brother No problems noted. Son No problems noted. Son No problems noted. Son Colon abnormality Son , in his 30 `s , " girl friend over dosed the patients son " Drug overdose Grandfather (Paternal) Family history of diabetes mellitus Family hx of colon cancer Other No family history of adverse response to anesthesia Social History Smoking Status: Never smoker Age Started Using Tobacco: 22; packs per day: 0.5; Years Smoked: 25; Cigarettes Per Day: 10; Second Hand Exposure: Yes; Hx Alcohol Use: No Hx Substance Use: No Preferred Language: Gibraltarian Communication Ability: Effective Visual Impairment: No Limitations Hearing Ability: Normal Pathologist Assistant Required: No Beliefs That Will Affect Care: None marital status: / Current Living Situation: Family Current Living Situation Comment: lives with son (laurent) current occupational status: retired 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 Feels Safe at Home: Yes Assistive Devices: Glasses and Wheelchair Review of Systems A total of 10 systems reviewed and were otherwise negative Physical Exam Vital Signs Vital Signs - 24 hr 09/27/20 07:12 09/27/20 07:18 09/27/20 07:22 Temperature 36.8 C Temperature Source Oral Pulse Rate 87 100 H Pulse Rate from SpO2 Sensor Respiratory Rate 18 20 Respiratory Effort / Characteristics Non-Labored Spontaneous Blood Pressure 122/49 L 122/49 L Blood Pressure Mean 69 73 Pulse Oximetry 93 95 94 Oxygen Delivery Method Room Air Room Air Room Air Sepsis Recent Fever Within 48 Hours No Sepsis New/Unexplained Change in Mental Status N/A Sepsis Action Taken by Nursing No Action Required 09/27/20 07:30 09/27/20 08:00 09/27/20 08:30 Temperature Temperature Source Pulse Rate 73 70 75 Pulse Rate from SpO2 Sensor 67 73 Respiratory Rate 12 12 14 Respiratory Effort / Characteristics Blood Pressure 121/65 127/67 108/62 Blood Pressure Mean 91 96 80 Pulse Oximetry 94 100 98 Oxygen Delivery Method Room Air Room Air Sepsis Recent Fever Within 48 Hours Sepsis New/Unexplained Change in Mental Status Sepsis Action Taken by Nursing 09/27/20 09:30 09/27/20 10:31 09/27/20 11:30 Temperature Temperature Source Pulse Rate 68 77 71 Pulse Rate from SpO2 Sensor 68 75 Respiratory Rate 12 20 12 Respiratory Effort / Characteristics Blood Pressure 117/66 157/83 H 122/53 L Blood Pressure Mean 98 104 77 Pulse Oximetry 100 95 96 Oxygen Delivery Method Room Air Room Air Room Air Sepsis Recent Fever Within 48 Hours Sepsis New/Unexplained Change in Mental Status Sepsis Action Taken by Nursing 09/27/20 12:00 09/27/20 12:01 Temperature Temperature Source Pulse Rate 76 78 Pulse Rate from SpO2 Sensor 77 79 Respiratory Rate 14 14 Respiratory Effort / Characteristics Blood Pressure 127/61 Blood Pressure Mean 99 Pulse Oximetry 96 98 Oxygen Delivery Method Sepsis Recent Fever Within 48 Hours Sepsis New/Unexplained Change in Mental Status Sepsis Action Taken by Nursing CONSTITUTIONAL/VITAL SIGNS: Reviewed / noted above. GENERAL: Non-toxic in appearance. Generalized weakness. INTEGUMENTARY: Warm, dry, and Rocky. HEAD: Normocephalic. EYES: without scleral icterus or trauma. ENT/OROPHARYNX: clear and moist. LYMPHADENOPATHY/NECK: Is supple without lymphadenopathy or meningismus. RESPIRATORY: Lungs clear and equal. CARDIOVASCULAR: Regular rate and rhythm. GI/ABDOMEN: Soft and nontender. No organomegaly or pulsatile mass. No rebound or guarding. Normal bowel sounds. EXTREMITIES: Warm and well perfused. Left leg shows erythema and a wound in the left anterior lower tibial region. There is surrounding erythema and warmth suggesting cellulitis. BACK: No CVA tenderness. NEUROLOGICAL: Intact without focal deficits. PSYCHIATRIC: normal affect. MUSCULOSKELETAL: Normally developed with good muscle tone. TRIAGE NURSING DOCUMENTATION REVIEWED. Procedures Central Line Placement Right IJ: Time Out Performed: Yes Patient Placed on Monitor/Pulse Ox: Yes Prep: mask and gloves Central Line Prep: Povidone-Iodine 1% Ultrasound Used for Placement: Yes Central Line Lumen Inserted: single Post Procedure: good blood return, all ports aspirated, flushed, capped and sterile dressing applied Patient Tolerated Procedure: well Complications: none Additional Comments: A 18-gauge 1 3/4 inch catheter was used. Course Administered Medications Discontinued Medications Cefazolin Sodium 3,000 mg/ (Dextrose) 72.5 mls @ 145 mls/hr IV NOW STA Stop: 09/27/20 08:29 Last Infusion: 09/27/20 12:16 Dose: 0 mls/hr Documented by: [id number] Admin: 09/27/20 11:31 Dose: 145 mls/hr Documented by: [id number] Ondansetron HCl (Ondansetron Inj 2 Mg/Ml 2 Ml Vial) 4 mg IV NOW STA Stop: 09/27/20 08:01 Last Admin: 09/27/20 11:31 Dose: 4 mg Documented by: [id number] Medical Decision Making Differential Diagnosis Differential includes acute coronary syndrome, myocardial infarction, CVA, TIA, anemia, infection, pneumonia, UTI, pyelonephritis, poor nutrition, dehydration, electrolyte disturbance,hypoglycemia. Medical Records Attestation: I reviewed the patient's medical records. Home Medications Current Medication List: was personally reviewed by me Laboratory Data Attestation: I reviewed the patient's lab results. Result diagrams: 09/27/20 09:31 09/27/20 11:30 Lab Results 09/27/20 09/27/20 09/27/20 Range/Units 09:31 11:30 11:30 WBC 14.40 H (4.8-10.8) K/uL RBC 3.14 L (4.2-5.4) M/uL Hgb 9.5 L (12.0-16.0) g/dL Hct 29.6 L (37-47) % MCV 94.3 (80-100) fL MCH 30.3 (25-34) pg MCHC 32.1 (32-36) g/dL RDW Std Deviation 60.0 H (36.4-46.3) fL RDW Coeff of Karla 17.6 H (11.5-14.5) % Plt Count 235 (130-400) K/uL MPV 11.5 H (7.4-10.4) fL Immature Gran % (Auto) 0.2 % Neut % (Auto) 94.8 % Lymph % (Auto) 2.7 % Gregory % (Auto) 2.2 % Eos % (Auto) 0.0 % Baso % (Auto) 0.1 % Neut # (Auto) 13.65 H (1.4-6.5) K/uL Lymph # (Auto) 0.39 L (1.2-3.4) K/uL Gregory # (Auto) 0.32 (0.11-0.59) K/uL Eos # (Auto) 0.00 (0-0.5) K/uL Baso # (Auto) 0.01 (0-0.2) K/uL Immature Gran # (Auto) 0.03 H (0.00-0.02) K/uL PT 15.1 H (9.0-12.0) Seconds INR 1.5 H (0.9-1.1) Sodium 141 (136-145) mmol/L Potassium 3.3 L (3.5-5.1) mmol/L Chloride 107 (98-107) mmol/L Carbon Dioxide 27 (21-32) mmol/L Anion Gap 7.0 (3-11) BUN 50 H (7-18) mg/dl Creatinine 1.59 H (0.6-1.2) mg/dl Est Cr Clr Drug Dosing 36.3 ml/min Est GFR ( Amer) 36.9 Est GFR (Non-Af Amer) 31.9 BUN/Creatinine Ratio 31.7 H (10-20) Glucose 75 (70-99) mg/dl Calcium 8.1 L (8.5-10.1) mg/dl Total Bilirubin 0.3 (0.2-1) mg/dl AST 26 (15-37) U/L ALT 28 (12-78) U/L Alkaline Phosphatase 93 (45-117) U/L Total Creatine Kinase 51 (26-192) U/L Troponin I 0.024 (0-0.045) ng/ml Total Protein 4.2 L (6.4-8.2) gm/dl Albumin 1.8 L (3.4-5.0) gm/dl Globulin 2.4 L (2.5-4.0) gm/dl Albumin/Globulin Ratio 0.8 L (0.9-2) Urine Color Urine Appearance (Clear) Urine pH (4.5-7.5) Ur Specific [place] (1.000-1.030) Urine Protein (Negative) Urine Glucose (UA) (Negative) Urine Ketones (Negative) Urine Blood (Negative) Urine Nitrite (Negative) Urine Bilirubin (Negative) Urine Urobilinogen (Negative) Ur Leukocyte Esterase (Negative) Urine WBC (Auto) (0-5) /hpf Urine RBC (Auto) (0-4) /hpf U Hyaline Cast (Auto) (0-5) /lpf U Epithel Cells (Auto) (0-5) /lpf Urine Bacteria (Auto) (Negative) 09/27/20 Range/Units 11:40 WBC (4.8-10.8) K/uL RBC (4.2-5.4) M/uL Hgb (12.0-16.0) g/dL Hct (37-47) % MCV (80-100) fL MCH (25-34) pg MCHC (32-36) g/dL RDW Std Deviation (36.4-46.3) fL RDW Coeff of Karla (11.5-14.5) % Plt Count (130-400) K/uL MPV (7.4-10.4) fL Immature Gran % (Auto) % Neut % (Auto) % Lymph % (Auto) % Gregory % (Auto) % Eos % (Auto) % Baso % (Auto) % Neut # (Auto) (1.4-6.5) K/uL Lymph # (Auto) (1.2-3.4) K/uL Gregory # (Auto) (0.11-0.59) K/uL Eos # (Auto) (0-0.5) K/uL Baso # (Auto) (0-0.2) K/uL Immature Gran # (Auto) (0.00-0.02) K/uL PT (9.0-12.0) Seconds INR (0.9-1.1) Sodium (136-145) mmol/L Potassium (3.5-5.1) mmol/L Chloride (98-107) mmol/L Carbon Dioxide (21-32) mmol/L Anion Gap (3-11) BUN (7-18) mg/dl Creatinine (0.6-1.2) mg/dl Est Cr Clr Drug Dosing ml/min Est GFR ( Amer) Est GFR (Non-Af Amer) BUN/Creatinine Ratio (10-20) Glucose (70-99) mg/dl Calcium (8.5-10.1) mg/dl Total Bilirubin (0.2-1) mg/dl AST (15-37) U/L ALT (12-78) U/L Alkaline Phosphatase (45-117) U/L Total Creatine Kinase (26-192) U/L Troponin I (0-0.045) ng/ml Total Protein (6.4-8.2) gm/dl Albumin (3.4-5.0) gm/dl Globulin (2.5-4.0) gm/dl Albumin/Globulin Ratio (0.9-2) Urine Color Yellow Urine Appearance Cloudy A (Clear) Urine pH 7.0 (4.5-7.5) Ur Specific [place] 1.014 (1.000-1.030) Urine Protein Negative (Negative) Urine Glucose (UA) Negative (Negative) Urine Ketones Negative (Negative) Urine Blood Negative (Negative) Urine Nitrite Positive A (Negative) Urine Bilirubin Negative (Negative) Urine Urobilinogen Negative (Negative) Ur Leukocyte Esterase 2+ H (Negative) Urine WBC (Auto) >30 H (0-5) /hpf Urine RBC (Auto) 0-4 (0-4) /hpf U Hyaline Cast (Auto) 5-10 H (0-5) /lpf U Epithel Cells (Auto) 0-5 (0-5) /lpf Urine Bacteria (Auto) Negative (Negative) Imaging Data Radiologist's Impression: XR chest 1V portable CLINICAL HISTORY: weakness COMPARISON STUDY: Chest radiograph August 01, 2020. FINDINGS: Lung volumes are normal. Minimal left basilar opacity favors atelectasis. There is no pneumothorax or pleural effusion. Cardiac size is stable with mitral annular calcification. Mediastinal contours are normal. There is no evidence for pulmonary edema. Left shoulder arthroplasty and severe osteoarthritis of the right glenohumeral joint with joint bodies are incidentally noted. Old left rib fractures are incidentally noted. IMPRESSION: No acute cardiopulmonary findings. ECG Data Attestation: I personally reviewed and interpreted this ECG as follows: Indication: + weakness Rate (beats per minute): 67 Rhythm: + normal sinus ECG Intervals/blocks: + Normal QT-c ECG ST segments: no ST elevation ECG Findings: no PVCs MDM Narrative Patient presents with weakness. She has history of a left-sided 6 mm stone that she was supposed to have a stent in today. The patient could not make it today for her procedure because she was too weak. She does have history of recent E. coli infection that is sensitive to Ancef. The patient has a left lower extremity cellulitis. She also reports some periodic blood in her stools in addition to diarrhea once a day for the last month. She was so weak that she was unable to get in her van with her sons. Her chest x-ray was clear. EKG showed a normal sinus rhythm. White blood cell count was elevated at 14.4. Hemoglobin is 9.5. The hemoglobin 2 days ago was 11.1. BUN is 50 and creatinine is 1.59. Troponin is negative. The patient was treated with IV Ancef. This covers cellulitis and the E. coli infection she recently had. She also was given some IV fluids. Nursing staff and IV team was unable to obtain an IV on the patient therefore a 18-gauge right IJ catheter was placed using ultrasound guidance. The patient was given IV Zofran as well as IV Ancef and IV fluids. Impression & Plan Weakness, Acute UTI, Cellulitis of left leg, Calculus, ureteral, GI bleed Discharge Plan Visit Data Chief Complaint: Illness Stated Complaint: WEAKNESS/HEADACHE/NAUSEA/DIARRHEA ED Provider: Brandon Turk Discharge Problem: Weakness, Acute UTI, Cellulitis of left leg, Calculus, ureteral, GI bleed Forms Stand Alone Forms: [facility] Prescriptions Prescriptions: No Action Flintstones Complete Tablet,Chewable 1 tab PO QAM RF: 0 calcium carbonate [Tums Extra Strength Smoothies] 300 mg (750 mg) Tablet,Chewable 750 mg PO UD PRN (Reason: Heartburn) RF: 0 omeprazole 20 mg Tablet,Delayed Release (Dr/Ec) 20 mg PO QAM RF: 0 nystatin 100,000 unit/gram powder 1 appln TOP BID PRN (Reason: rash) RF: 0 atorvastatin 40 mg Tablet 40 mg PO PM RF: 0 oxybutynin chloride 5 mg Tablet 5 mg PO BID RF: 0 bupropion HCl [Wellbutrin SR] 200 mg Tablet Sustained-Release 12 Hr 200 mg PO BID RF: 0 cholecalciferol (vitamin D3) [Vitamin D3] 50 mcg (2,000 unit) Tablet 2,000 unit PO QAM RF: 0 calcium carbonate-vitamin D3 [Calcium 600 with Vitamin D3] 600 mg(1,500mg) - 500 unit Capsule 1 cap PO BID RF: 0 oxycodone [Roxicodone] 5 mg Tablet 5 mg PO Q4 PRN (Reason: Pain) RF: 0 buspirone 5 mg Tablet 5 mg PO TID RF: 0 ascorbic acid (vitamin C) [Vitamin C] 250 mg Tablet 250 mg PO BID RF: 0 ondansetron 4 mg Tablet,Disintegrating 4 mg PO Q8H PRN (Reason: Nausea) RF: 0 allopurinol 100 mg Tablet 100 mg PO BID RF: 0 duloxetine [Cymbalta] 20 mg Capsule,Delayed Release(Dr/Ec) 40 mg PO HS RF: 0 cyanocobalamin (vitamin B-12) 1,000 mcg/mL Kit 1,000 mcg IM UD RF: 0 potassium chloride [K-Tab] 10 mEq tablet extended release 10 meq PO QAM RF: 0 Probiotic 3 billion cell Capsule 3,000 mmu cells PO QAM RF: 0 warfarin 4 mg tablet 4 mg PO SUMOWETHSA RF: 0 warfarin 4 mg Tablet 2 mg PO TUFR RF: 0 hydrocortisone acetate [Anusol-HC] 25 mg suppository 25 mg AR HS Qty: 24 RF: 0 furosemide 20 mg Tablet 20 mg PO PM RF: 0 enoxaparin [Lovenox] 80 mg/0.8 mL Syringe 80 mg SUBCUT Q12H RF: 0 furosemide [Lasix] 40 mg tablet 40 mg PO QAM RF: 0 metoprolol succinate 25 mg Tablet Extended Release 24 Hr 12.5 mg PO BID RF: 0 cefdinir 300 mg capsule 300 mg PO BID 10 Days Qty: 19 RF: 0 Discharge Problem: GI bleed Qualifiers: GI bleed type/associated pathology: unspecified gastrointestinal hemorrhage type Qualified Code(s): K92.2 - Gastrointestinal hemorrhage, unspecified
[2020-09-27 12:05] LABS: Albumin Level 1.8 gm/dl (3.4-5.0); BUN Creatinine Ratio 31.7 (10-20); Calcium 8.1 mg/dl (8.5-10.1); Creatinine Clr Calc Pharmacy 36.3 ml/min; Est GFR (African American) 36.9; Est GFR (Non-African American) 31.9; Potassium 3.3 mmol/L (3.5-5.1)
[2020-09-27 12:07] LABS: Albumin Globulin Ratio 0.8 (0.9-2); Bilirubin,Total 0.3 mg/dl (0.2-1); Globulin 2.4 gm/dl (2.5-4.0); Total Protein 4.2 gm/dl (6.4-8.2); Troponin I 0.024 ng/ml (0-0.045)
--- NOTE | 2020-09-27 12:18 | Electrocardiogram Report ---
Test Reason : Blood Pressure : / mmHG Vent. Rate : 067 BPM Atrial Rate : 067 BPM P-R Int : 162 ms QRS Dur : 100 ms QT Int : 448 ms P-R-T Axes : 070 015 089 degrees QTc Int : 473 ms Normal sinus rhythm Possible Left atrial enlargement Nonspecific ST and T wave abnormality Abnormal ECG When compared with ECG of 20-SEP-2020 14:01, Premature supraventricular complexes are no longer Present Confirmed by Louis Carballo ([id number]) on 09/27/2020 12:17:41 PM Referred By: Confirmed By:Louis Carballo
--- NOTE | 2020-09-27 12:51 | Urology Consultation ---
Date of Consultation September 27, 2020 Assessment & Plan (1) Calculus, ureteral: pending ct if stones in lft ureter would place a stent (2) Acute UTI: (3) Weakness: History of Present Illness Reason for Consultation: ureteral stones Requesting Physician: Burke History of Present Illness 74 y/o female for ureteroscopy today but went too ER because she felt weak . She has a history of distal left residual stones from a previous ureteroscopy found incidentally when a ct was done for a GI bleed .She was scheduled for removal of stones today and culture done last week was positive for ecoli . She was placed initially on macrodantin bid but changed to cefinadir that day. She denies fever but has had chills and some left flank pain . She also has an elevated wbc and lower hct . She has had some blood in her stools. Could not see stones on kub this am due to poor technique . Reviewed with Dr. Terry who recommends non cotrast CT to be sure . Pending this would plce a stent under sedation to protect her from possible urosepsis. She also has cellulitis of her lower extremity. Urine with wbc and nitrite positive Allergies Allergy/AdvReac Type Severity Reaction Status Date / Time adhesive Allergy Intermediate BLISTERS Verified 09/27/20 07:42 WITH STERI-STRIPS Iodinated Contrast Media Allergy Intermediate hive Verified 09/27/20 07:42 [Iodinated Contrast- Oral and IV Dye] naproxen Allergy Intermediate SWELLING - Verified 09/27/20 07:42 TOLERATES ESTEVES-[address] HALL ciprofloxacin Allergy Mild RASH Verified 09/27/20 07:42 Quinolones Allergy Mild NEUROLOGIC Verified 09/27/20 07:42 SYMPTOMS Home Medications Medication Instructions Recorded Confirmed Type allopurinol 100 mg PO BID 06/23/19 09/27/20 History ascorbic acid (vitamin C) [Vitamin 250 mg PO BID 06/23/19 09/27/20 History C] buspirone 5 mg PO TID 06/23/19 09/27/20 History cyanocobalamin (vitamin B-12) 1,000 mcg IM UD 06/23/19 09/27/20 History duloxetine [Cymbalta] 40 mg PO HS 06/23/19 09/27/20 History ondansetron 4 mg PO Q8H PRN 06/23/19 09/27/20 History oxycodone [Roxicodone] 5 mg PO Q4 PRN 06/23/19 09/27/20 History Flintstones Complete 1 tab PO QAM 08/27/19 09/27/20 History atorvastatin 40 mg PO PM 12/31/19 09/27/20 History bupropion HCl [Wellbutrin SR] 200 mg PO BID 12/31/19 09/27/20 History calcium carbonate [Tums Extra 750 mg PO UD PRN 12/31/19 09/27/20 History Strength Smoothies] calcium carbonate-vitamin D3 1 cap PO BID 12/31/19 09/27/20 History [Calcium 600 with Vitamin D3] cholecalciferol (vitamin D3) 2,000 unit PO QAM 12/31/19 09/27/20 History [Vitamin D3] nystatin 1 appln TOP BID PRN 12/31/19 09/27/20 History omeprazole 20 mg PO QAM 12/31/19 09/27/20 History oxybutynin chloride 5 mg PO BID 12/31/19 09/27/20 History Probiotic 3,000 mmu cells PO QAM 06/21/20 09/27/20 History potassium chloride [K-Tab] 10 meq PO QAM 06/21/20 09/27/20 History warfarin 4 mg PO SUMOWETHSA 06/21/20 09/27/20 History warfarin 2 mg PO TUFR 08/01/20 09/27/20 History hydrocortisone acetate [Anusol-HC] 25 mg RI HS #24 ea 08/03/20 09/27/20 Rx cefdinir 300 mg PO BID 10 Days #19 cap 09/20/20 09/27/20 Rx enoxaparin [Lovenox] 80 mg SUBCUT Q12H 09/25/20 09/27/20 History furosemide 20 mg PO PM 09/25/20 09/27/20 History furosemide [Lasix] 40 mg PO QAM 09/25/20 09/27/20 History metoprolol succinate 12.5 mg PO BID 09/25/20 09/27/20 History Patient History Medical History Aortic stenosis, severe 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 Per cardiology consult , "Only mild left ventricular dysfunction and suspect stress mediated etiology rather than acute ischemic event. Patient on appropriate beta-sheryl therapy." Apical wall motion abnormality resolved on 08/04/20 ECHO Atrial fibrillation follows with Dr. Bui> NO PACER Bleeding hemorrhoids TO BE GETTING SURGERY FOR THIS IN NEAR FUTURE Carotid artery stenosis [place] , 50%, [place] 50-69% by 04/09/19 doppler Chronic diastolic heart failure Degenerative disc disease Depression Dyslipidemia Factor 5 Leiden mutation, heterozygous recurrent PE/DVT; status post IVC filter placement, on Coumadin Frequent UTI GERD (gastroesophageal reflux disease) Gout [place] filter in place History of COPD mild--inhaler/nebulizer prn History of esophageal disorder esophageal diverticulum History of peripheral neuropathy bilateral feet History of stress incontinence Hx of cancer of uterus diagnosed 03/2019---radiation only Hx of iron deficiency anemia Hypertension Intestinal disorder post op malabsorption Non-ST elevation CA (NSTEMI) On anticoagulant therapy warfarin daily Pes planus Post traumatic stress disorder Pulmonary embolism hx of bilateral ~12/12 FFL Sleep apnea CPAP Spinal stenosis Stroke 06/03/2019 after I&D left hip--vision loss in left eye--no neurologist Vision abnormalities r peripheral vision loss( posterior ischemic optic neuropathyleft eye), left side altered vision like looking through a screen door Weakness Wheelchair dependence Surgical History H/O cystoscopy 06/23/20 and 07/20/20 [facility] [place] History of arthroplasty of left hip 2006 @ [facility]--infected after, multiple sx's History of biopsy of bladder benign History of colonoscopy with polypectomy History of incision and drainage 05/2019 of left hip History of left [place] [facility] [place] of left shoulder replacement History of right hip replacement 2005 @ [facility] History of tonsillectomy and adenoidectomy History of tooth extraction Hx of gastric bypass Hx of tubal ligation Hx of umbilical hernia repair mesh inserted S/P colon resection 1984 @ [facility] complete sigmoid removed d/t diverticular disease Family History Mother , age 91 Heart disease Family hx colonic polyps Father , age 42 Factor V deficiency Myocardial infarction Sister No problems noted. Sister Endometrial cancer Brother Family hx colonic polyps Brother , age 50 Meningitis Brother No problems noted. Brother No problems noted. Son No problems noted. Son No problems noted. Son Colon abnormality Son , in his 30 `s , " girl friend over dosed the patients son " Drug overdose Grandfather (Paternal) Family history of diabetes mellitus Family hx of colon cancer Other No family history of adverse response to anesthesia Social History Smoking Status: Never smoker Age Started Using Tobacco: 22; packs per day: 0.5; Years Smoked: 25; Cigarettes Per Day: 10; Second Hand Exposure: Yes; Hx Alcohol Use: No Hx Substance Use: No Preferred Language: Indonesian Communication Ability: Effective Visual Impairment: No Limitations Hearing Ability: Normal Chicken Hanger Required: No Beliefs That Will Affect Care: None marital status: / Current Living Situation: Family Current Living Situation Comment: lives with son (laurent) current occupational status: retired 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 Feels Safe at Home: Yes Assistive Devices: Glasses and Wheelchair Review of Systems Review of Systems: All systems reviewed & are unremarkable except as noted in HPI & below Physical Exam Constitutional: + ill appearing Eyes: PERRL, conjunctivae normal, anicteric sclerae ENMT: external ear and nose normal, oropharynx normal Neck: trachea midline, no thyromegaly Respiratory: normal respiratory effort Cardiovascular: Extremities: + edema Gastrointestinal (Abdomen): no flank pain Musculoskeletal: pt unable to ambulate easily Skin: cellulitis of lower extremity Neurologic: PERRL, EOMI, accommodation nl, no face palsy, no dysarthria Psychiatric: A+Ox3, euthymic affect Lymphatic: no cervical lymphadenopathy Results & Data ([facility]) Vital Signs (Past 12 Hours) Vital Signs Temp Pulse Resp BP Pulse Ox 09/27/20 12:01 78 14 98 09/27/20 12:00 76 14 127/61 96 09/27/20 11:30 71 12 122/53 L 96 09/27/20 10:31 77 20 157/83 H 95 09/27/20 09:30 68 12 117/66 100 09/27/20 08:30 75 14 108/62 98 09/27/20 08:00 70 12 127/67 100 09/27/20 07:30 73 12 121/65 94 09/27/20 07:22 94 11/18/20 07:18 36.8 C 100 H 20 122/49 L 95 09/27/20 07:12 87 18 122/49 L 93 PG Care Time/CCT Total # of Minutes Spent Total Time Spent with Patient: Total time spent is greater than 50% in coordination of care (as documented) at patient's floor/unit and/or counseling patient:60 minutes Coding Level of Care Code 72357 Inpt Consult Level 4 Diagnoses Calculus, ureteral N20.1 Acute UTI N39.0 Weakness R53.1
[2020-09-27] MEDS ORDERED: POTASSIUM CHLORIDE CRTAB 20 MEQ TABCR PO STA (12:57)
--- NOTE | 2020-09-27 13:20 | History & Physical Report ---
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 coli sepsis secondary to obstructive uropathy/renal lithiasis requiring left ureteral stenting who presents to ED secondary to weakness x2 days. CT A/P: There are numerous obstructing calculi/Steinstrasse seen in the distal left ureter above the vesicoureteral junction. Fragments measure up to at least 5 mm, and this causes moderate left-sided hydroureteronephrosis. Pt to undergo urologic procedure by Dr. Pabon this afternoon. Admit to med tele post operatively continue IV antibiotics IV Rocephin (UTI/cellulitis) and Dapto (cellulitis) hold on IVF for now given severe and pt appears mild volume overload lactic acid/pro alondra pending consult urology - discussed at bedside with Dr. Pabon (3) Acute UTI: recent urine culture + e.coli continue rocephin Day #1, cultures pending (4) Cellulitis of left leg: wound culture, wound nurse consult IV rocephin and daptomycin ordered Statin on hold, monitor CK (5) Diarrhea: complains of diarrhea daily x 1 month stool culture, stool for diff (6) Chronic diastolic heart failure: (7) Aortic stenosis, severe: (8) Apical ballooning syndrome: Chronic diastolic CHF with apical ballooning syndrome on 06/2020 echo Severe calcific aortic stenosis -work up In progress Follows [facility] cardiology monitor volume status closely, daily weights, strict I and O hold lasix for now, reassess in a.m., resume when able ( takes 80mg fr, sa, sun and 60mg all other days) continue metoprolol (9) CKD (chronic kidney disease), stage III: Patient with fluctuation of creatinine, but general baseline 1.4-1.6 BUN/creatinine 50 and 1.59 today Likely exacerbated in setting of mild to moderate hydronephrosis secondary to multiple stones Monitor renal function daily, avoid nephrotoxic agent (10) Anemia: H&H 9.5 and 29.6 today On 09/25/2020 H&H was 11.1 She does receive vitamin B12 injections in setting of history of gastric bypass Obtain FOBT Iron studies 07/27/2020 revealed ferritin 3476, iron 52, transferrin saturation 23, TIBC 230 Currently warfarin on hold in setting of upcoming procedure, postoperatively will place on heparin drip until determine GIB follows [facility] - consider inpt consult if worsens Last cspope 01/2020 showed sigmoid divertic, int hemorrhoids - on anusol check H/H @ 8pm (11) Factor 5 Leiden mutation, heterozygous: History of recurrent DVT/PE, Tyner filter in place Prior to admission was on Lovenox bridge, last dose a.m. of 09/26 for procedure on 09/27 Will undergo procedure today Placed on heparin drip, no bolus postoperatively when GI bleed ruled out can resume Coumadin, per MTM recommendations are 8mg x 2 days and then resume normal dosing of 2 mg Friday and Friday and 4 mg all other days (12) Wheelchair dependence: Patient with chronic left prosthetic hip infection and is wheelchair dependent At baseline she is able to do self transfers will place PT OT consult to start tomorrow (13) NICOLASA on CPAP: CPAP at HS (14) DVT prophylaxis: hx of DVT/PE, on chronic Coumadin therapy Postoperatively we will place on heparin and monitor for further melena with eventual transition to Coumadin if no sign of GI bleed Disposition: Admit to med telemetry postoperatively Follow-up: PCP Dr. Shea upon discharge Patient was seen and examined in collaboration with Dr. Lema, please see addendum History of Present Illness Chief Complaint: Weakness x2 days. Primary Care Provider: Sadi Shea, This is a 74-year-old female who has significant past medical history of chronic diastolic CHF, severe calcific aortic valve stenosis, apical ballooning LV dysfunction, history of ocular CVA, HTN, HLD, factor V Leiden mutation with h istory of DVT/PE and Marianna filter in place on chronic Coumadin therapy, carotid artery stenosis, history of diabetes mellitus, HLD, chronic left hip prosthetic joint infection status post excisional debridement and permanent nonunion wheelchair-bound, NICOLASA on CPAP, DUNIA, gout, history of uterine cancer, hypoalbuminemia, history of E. coli sepsis secondary to obstructive uropathy/renal lithiasis requiring left ureteral stenting who presents to ED secondary to weakness x2 days. Of significance patient was to undergo ureteroscopy today by Dr. Pabon secondary to persistent renal lithiasis, but opted to present to ED secondary to weakness. Of significance patient is wheelchair-bound secondary to chronic left hip prosthetic joint infection and typically she is able to transfer on her own. Over the last 2 days she has been unable to do so and is much more weak diffusely. She also admits to having diarrhea 1 episode daily associated with bleeding. Bleeding is intermittent when it does occur described as clotting. Blood is bright red. She does complain of anal pain and has been following with GI. She has had recent fever, chills, sweats, lightheadedness, dizziness, chest pain, cough, shortness of breath, nausea, vomiting, dysuria, increased urgency or frequency with urination. She does admit to crampy abdominal pain associated with bowel movement. She states all symptoms occur with bowel movement. She has been taking antibiotics secondary to UTI and for upcoming procedure. She also elicits to being on Lovenox bridge due to procedure today. Last dose of Lovenox was yesterday morning. She also admits to dropping iron skillet on left leg and developing skin tear. She states leg is more red and swollen than usual. In ED patient remained hemodynamically stable. She did not meet SIRS or sepsis criteria. Lab abnormalities notable for WBC 14.4k, H&H 9.5 and 29.6, platelet 235, INR 1.5, K3.3, BUN 50, creatinine 1.59, urinalysis positive for nitrites and leukocyte esterase. Chest x-ray negative acute abnormality. CT abdomen pelvis pending. She was seen and evaluated by urology in ED. The pending results of CT if stone still present she is going to go to OR for stent placement. Allergies Allergy/AdvReac Type Severity Reaction Status Date / Time adhesive Allergy Intermediate BLISTERS Verified 09/27/20 07:42 WITH STERI-STRIPS Iodinated Contrast Media Allergy Intermediate hive Verified 09/27/20 07:42 [Iodinated Contrast- Oral and IV Dye] naproxen Allergy Intermediate SWELLING - Verified 09/27/20 07:42 TOLERATES ESTEVES-[address] HALL ciprofloxacin Allergy Mild RASH Verified 09/27/20 07:42 Quinolones Allergy Mild NEUROLOGIC Verified 09/27/20 07:42 SYMPTOMS Home Medications Medication Instructions Recorded Confirmed Type allopurinol 100 mg PO BID 06/23/19 09/27/20 History ascorbic acid (vitamin C) [Vitamin 250 mg PO BID 06/23/19 09/27/20 History C] buspirone 5 mg PO TID 06/23/19 09/27/20 History cyanocobalamin (vitamin B-12) 1,000 mcg IM UD 06/23/19 09/27/20 History duloxetine [Cymbalta] 40 mg PO HS 06/23/19 09/27/20 History ondansetron 4 mg PO Q8H PRN 06/23/19 09/27/20 History oxycodone [Roxicodone] 5 mg PO Q4 PRN 06/23/19 09/27/20 History Flintstones Complete 1 tab PO QAM 08/27/19 09/27/20 History atorvastatin 40 mg PO PM 12/31/19 09/27/20 History bupropion HCl [Wellbutrin SR] 200 mg PO BID 12/31/19 09/27/20 History calcium carbonate [Tums Extra 750 mg PO UD PRN 12/31/19 09/27/20 History Strength Smoothies] calcium carbonate-vitamin D3 1 cap PO BID 12/31/19 09/27/20 History [Calcium 600 with Vitamin D3] cholecalciferol (vitamin D3) 2,000 unit PO QAM 12/31/19 09/27/20 History [Vitamin D3] nystatin 1 appln TOP BID PRN 12/31/19 09/27/20 History omeprazole 20 mg PO QAM 12/31/19 09/27/20 History oxybutynin chloride 5 mg PO BID 12/31/19 09/27/20 History Probiotic 3,000 mmu cells PO QAM 06/21/20 09/27/20 History potassium chloride [K-Tab] 10 meq PO QAM 06/21/20 09/27/20 History warfarin 4 mg PO SUMOWETHSA 06/21/20 09/27/20 History warfarin 2 mg PO TUFR 08/01/20 09/27/20 History hydrocortisone acetate [Anusol-HC] 25 mg NV HS #24 ea 08/03/20 09/27/20 Rx cefdinir 300 mg PO BID 10 Days #19 cap 09/20/20 09/27/20 Rx enoxaparin [Lovenox] 80 mg SUBCUT Q12H 09/25/20 09/27/20 History furosemide 20 mg PO SUFRSA 09/25/20 09/27/20 History furosemide [Lasix] 40 mg PO QAM 09/25/20 09/27/20 History metoprolol succinate 12.5 mg PO BID 09/25/20 09/27/20 History furosemide 40 mg PO MOTUWETH 09/27/20 09/27/20 History Past Med/Surg History Medical History (Updated 09/27/20 @ 13:53 by Tricia Marinelli PA-C) Aortic stenosis, severe Apical ballooning syndrome Noted on RAHUL. Per cardiology consult , "Only mild left ventricular dysfunction and suspect stress mediated etiology rather than acute ischemic event. Patient on appropriate beta-sheryl therapy." Apical wall motion abnormality resolved on 08/04/20 ECHO Atrial fibrillation follows with Dr. Bui> NO PACER Bleeding hemorrhoids TO BE GETTING SURGERY FOR THIS IN NEAR FUTURE Carotid artery stenosis [place] , 50%, [place] 50-69% by 04/09/19 doppler Chronic diastolic heart failure CKD (chronic kidney disease), stage III Degenerative disc disease Depression Dyslipidemia Factor 5 Leiden mutation, heterozygous recurrent PE/DVT; status post IVC filter placement, on Coumadin Frequent UTI GERD (gastroesophageal reflux disease) Gout Marianna filter in place History of COPD mild--inhaler/nebulizer prn History of esophageal disorder esophageal diverticulum History of peripheral neuropathy bilateral feet History of stress incontinence Hx of cancer of uterus diagnosed 03/2019---radiation only Hx of iron deficiency anemia Hypertension Intestinal disorder post op malabsorption Non-ST elevation IA (NSTEMI) On anticoagulant therapy warfarin daily NICOLASA on CPAP Pes planus Post traumatic stress disorder Pulmonary embolism hx of bilateral ~2002 2/2 FFL Sleep apnea CPAP Spinal stenosis Stroke 06/03/2019 after I&D left hip--vision loss in left eye--no neurologist Vision abnormalities r peripheral vision loss( posterior ischemic optic neuropathyleft eye), left side altered vision like looking through a screen door Weakness Wheelchair dependence Surgical History H/O cystoscopy 06/23/20 and 07/20/20 [facility] History of arthroplasty of left hip 2006 @ [facility]--infected after, multiple sx's History of biopsy of bladder benign History of colonoscopy with polypectomy History of incision and drainage 05/2019 of left hip History of left hip replacement 03[place]2019 [place] [facility] [place] of left shoulder replacement History of right hip replacement 2005 @ [facility] History of tonsillectomy and adenoidectomy History of tooth extraction Hx of gastric bypass Hx of tubal ligation Hx of umbilical hernia repair mesh inserted S/P colon resection 1984 @ [facility] complete sigmoid removed d/t diverticular disease Family History Mother , age 91 Heart disease Family hx colonic polyps Father , age 42 Factor V deficiency Myocardial infarction Sister No problems noted. Sister Endometrial cancer Brother Family hx colonic polyps Brother , age 50 Meningitis Brother No problems noted. Brother No problems noted. Son No problems noted. Son No problems noted. Son Colon abnormality Son , in his 30 `s , " girl friend over dosed the patients son " Drug overdose Grandfather (Paternal) Family history of diabetes mellitus Family hx of colon cancer Other No family history of adverse response to anesthesia Social History Smoking Status: Never smoker Age Started Using Tobacco: 22; packs per day: 0.5; Years Smoked: 25; Cigarettes Per Day: 10; Second Hand Exposure: Yes; Hx Alcohol Use: No Hx Substance Use: No Preferred Language: Khmer Communication Ability: Effective Visual Impairment: No Limitations Hearing Ability: Normal Laborer High Density Press Required: No Beliefs That Will Affect Care: None marital status: / Current Living Situation: Family Current Living Situation Comment: lives with son (laurent) current occupational status: retired 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 Feels Safe at Home: Yes Assistive Devices: Walker Review of Systems Review of Systems: All systems reviewed & are unremarkable except as noted in HPI & below Physical Exam Physical Exam: Constitutional: Chronically ill-appearing female, limited by mobility, vitals as above, NAD, sitting up in bed, pleasant, conversing easily Head: Normocephalic, Atraumatic Eyes: PERRL, conjunctivae normal, anicteric sclerae ENMT: external ear and nose normal, oropharynx normal Neck: trachea midline, no thyromegaly normal visual inspection Respiratory: normal respiratory effort, lungs clear to auscultation, no wheeze, rales, rhonchi. Normal insp/exp effort, no accessory muscle use Cardiovascular: RRR, harsh 3/6 JAMAL noted best RUSB, b/l lower ext edema with erythema L > R, L pretibial skin tear with surrounding erythema, distal pulses +1 Vessels: no JVD or carotid bruit Chest: normal inspection of chest Abdomen: normal bowel sounds, soft, nontender, no hepatosplenomegaly Musculoskeletal: no cyanosis or clubbing, extremities motor strength 5/5 Skin: ecchymosis to b/l upper ext L > R, warm and dry normal turgor Neurologic: PERRL, EOMI, accommodation nl, no face palsy, no dysarthria CN's II-XI intact bilaterally and moves all extremities Psychiatric: A+Ox3, euthymic affect Lymphatic: no cervical or axillary lymphadenopathy : deferred Results & Data Results & Data ([facility]) Vital Signs (Past 12 Hours) Vital Signs Temp Pulse Resp BP Pulse Ox 09/27/20 12:01 78 14 98 09/27/20 12:00 76 14 127/61 96 09/27/20 11:30 71 12 122/53 L 96 09/27/20 10:31 77 20 157/83 H 95 09/27/20 09:30 68 12 117/66 100 09/27/20 08:30 75 14 108/62 98 09/27/20 08:00 70 12 127/67 100 09/27/20 07:30 73 12 121/65 94 09/27/20 07:22 94 09/27/20 07:18 36.8 C 100 H 20 122/49 L 95 09/27/20 07:12 87 18 122/49 L 93 Laboratory Results Short CBC 09/27/20 Range/Units 09:31 WBC 14.40 H (4.8-10.8) K/uL Hgb 9.5 L (12.0-16.0) g/dL Hct 29.6 L (37-47) % Plt Count 235 (130-400) K/uL BMP 09/27/20 11:30 Sodium 141 Potassium 3.3 L Chloride 107 Carbon Dioxide 27 BUN 50 H Creatinine 1.59 H Glucose 75 Calcium 8.1 L Cardiac Enzymes 09/27/20 Range/Units 11:30 Total Creatine Kinase 51 (26-192) U/L Troponin I 0.024 (0-0.045) ng/ml Liver Function 09/27/20 Range/Units 11:30 Total Bilirubin 0.3 (0.2-1) mg/dl AST 26 (15-37) U/L ALT 28 (12-78) U/L Alkaline Phosphatase 93 (45-117) U/L Albumin 1.8 L (3.4-5.0) gm/dl Urine 09/27/20 Range/Units 11:40 Urine Color Yellow Urine Appearance Cloudy A (Clear) Urine pH 7.0 (4.5-7.5) Ur Specific [place] 1.014 (1.000-1.030) Urine Protein Negative (Negative) Urine Glucose (UA) Negative (Negative) Diagnostic Findings CXR: IMPRESSION: No acute cardiopulmonary findings. CT abd/Pelvis: pending Medications Administered Discontinued Medications Cefazolin Sodium 3,000 mg/ (Dextrose) 72.5 mls @ 145 mls/hr IV NOW STA Stop: 09/27/20 08:29 Last Infusion: 09/27/20 12:16 Dose: 0 mls/hr Documented by: [id number] Admin: 09/27/20 11:31 Dose: 145 mls/hr Documented by: [id number] Ondansetron HCl (Ondansetron Inj 2 Mg/Ml 2 Ml Vial) 4 mg IV NOW STA Stop: 09/27/20 08:01 Last Admin: 09/27/20 11:31 Dose: 4 mg Documented by: [id number] Potassium Chloride (Potassium Chloride Crtab 20 Meq Tabcr) 40 meq PO NOW STA Stop: 09/27/20 12:58 Last Admin: 09/27/20 13:33 Dose: 40 meq Documented by: [id number] ECG Rate (beats per minute): 67 Rhythm: normal sinus Findings: + nonspecific-ST abn Code Status & VTE Plan Code Status Conditional Code, CPR okay, no mechanical ventilation, other ACLS procedures okay VTE Prophylaxis Plan VTE Prophylaxis will be ordered: No Reason for no VTE drug order: Treatment not indicated Reason for no VTE mechanical prophylaxis: Treatment not indicated Supervising Physician Co-Signing Physician Notes Patient is a 74-year-old female with history of CHF, severe aortic stenosis, H/O DVT, PE, factor V Leyden mutation and other comorbidities presents with history of significant generalized weakness since 2 days duration. Also states having diarrhea since last few days associated with intermittent bleeding, rectal pain, some abdominal discomfort with bowel movement. She admits to have hemorrhoids and anticoagulation for DVT. Is currently on antibiotics secondary to UTI and for planned procedure--ureteral stent. Please review HPI for complete details of presentation. CT abdomen suggestive of numerous obstructing calculi in the distal left ureter, moderate left-sided hydroureteronephrosis. Patient also states having left leg redness and minor wound which resulted from a skillet which fell on left leg 1 week ago. Labs, imaging studies, EKG reviewed. On exam patient is moderately built and nourished, normocephalic atraumatic, lungs are clear to auscultation, S1-S2, +systolic murmur, EOMI, abdomen soft, nontender, alert awake oriented, no focal neurologic deficits, + bilateral leg erythema, edema, small pretibial skin tear on LLE. Patient is admitted for management of complicated UTI, obstructive uropathy, SELWYN, left leg cellulitis, chronic ongoing diarrhea. Patient is to undergo left ureteral stent placement today. Urology on board. Agree with starting on Rocephin given E. coli on prior urine culture. Also will start on doxycycline for cellulitis. Agree with holding Coumadin and start on IV heparin. Will monitor H&H closely. Check fecal occult. If any signs of GI bleed, will consider GI evaluation. Blood, urine cultures obtained. Negative procalcitonin, lactate levels. Check stool studies to rule out C. difficile given antibiotic use. Monitor renal function, CBC closely. I personally reviewed the record. Patient is interviewed and examined at bedside. Patient's care is coordinated with Tricia Farooq. Please refer to the documentation above for details of patient's presentation and for discussion of other issues. (1) Diarrhea Diarrhea type: unspecified type Qualified Code(s): R19.7 - Diarrhea, unspecified
--- NOTE | 2020-09-27 13:39 | CT Scan Report ---
CT SCAN OF THE ABDOMEN AND PELVIS WITHOUT IV CONTRAST CLINICAL HISTORY: Left-sided abdominal pain. COMPARISON STUDY: Abdominal CT dated 06/21/2020 and 09/12/2020. TECHNIQUE: CT scan of the abdomen and pelvis is performed from the lung bases to the proximal femora. Images are reviewed in the axial, sagittal, and coronal planes. IV contrast was not administered for this examination as per the referring clinician. A dose lowering technique was utilized adhering to the principles of ALARA. CT DOSE: 982.36 mGycm FINDINGS: Lung bases: The heart is normal in size and without pericardial effusion. The coronary arteries and m itral annulus are densely calcified. There is a moderate hiatal hernia. There is trace left pleural e ffusion and bibasilar scarring/atelectasis. Liver: The unenhanced liver is normal in size, contour, and attenuation. There is no intrahepatic jayda iary ductal dilatation. Gallbladder: There are numerous tiny calcified gallstones with no CT evidence of acute cholecystitis. Spleen: Normal in size and attenuation. A 1.8 cm splenic hypodensity seen on image #79 is unchanged a nd of doubtful significance. Pancreas: The unenhanced pancreas is atrophic and grossly unremarkable. Adrenal glands: Bilateral adrenal adenomas measure up to 2.2 cm. Kidneys: The unenhanced kidneys are atrophic. 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 There are numerous small distal left ureteral calculi the pelvis seen on images #298 through #327. This is suboptimally assessed due to significant streak artifact from the hip arthroplasty. The largest fragments measure up to at least 5 mm. These terminates just above the vesicoureteral junction and causes moderate left hydroureteronephrosis. The re is hydronephrosis of both the upper and lower pole moieties. Additional small fragments are seen i n the interpolar left kidney. Question a punctate nonobstructing right renal calculus. There is no ri ght-sided hydronephrosis. Scattered renal cysts and indeterminate cortical hypodensities measure up t o 1.6 cm in diameter. Abdominal vasculature: The abdominal aorta is normal in course and caliber noting advanced atheroscle rotic calcification. An IVC filter is in place. Bowel: Postoperative change is noted involving the stomach. There is also postoperative change from l eft colonic resection. A small bowel anastomosis is noted in the left lower quadrant. There is mild d iverticulosis of the remaining colon without CT evidence of acute diverticulitis. There is mild colon ic fecal retention. No bowel obstruction is seen. The appendix is not visualized. Peritoneum: There is no intraperitoneal free air or abdominal ascites. Postoperative change is noted in the ventral abdominal wall. Lymphadenopathy: None. Pelvic viscera: Evaluation of the pelvis is degraded by streak artifact from a right hip arthroplasty . The bladder is decompressed. The bladder wall is thickened and trabeculated. There are numerous sma ll bladder diverticula. Mild pericystic stranding is noted. The uterus and adnexa are normal as image d. Skeletal structures: The skeletal structures are osteopenic. There is advanced lumbosacral spondylosi s and mild scoliosis. No lytic or blastic lesions are seen. A right hip arthroplasty is in place. The re are healed left-sided rib fractures. There is advanced chronic deformity of the left hip with dest ruction of the left femoral head and surrounding bursal fluid. There is dorsal dislocation of the pro ximal femur. Soft tissues: There is body wall edema. IMPRESSION: 1. There are numerous obstructing calculi/Steinstrasse seen in the distal left ureter above the vesic oureteral junction. Fragments measure up to at least 5 mm, and this causes moderate left-sided hydrou reteronephrosis. 2. 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 3. Additional tiny fragments/punctate calculi are suggested in both kidneys. 4. Postoperative change is noted involving the stomach, colon, and small bowel. There is no bowel obs truction. 5. Chronic destructive change and deformity/dislocation is again seen in the left hip. 6. Cholelithiasis. 7. The bladder wall is thickened and trabeculated and there are numerous small bladder diverticula. T he appearance suggests neurogenic bladder or chronic outlet obstruction. Correlation with clinical fi ndings and urinalysis will be required. 8. Additional findings as above. ACT 112: Negative or not required by law. Electronically signed by: Srinivasan Finn M.D. 09/27/2020 1:37 PM
[2020-09-27] MEDS ORDERED: OPTIRAY 300 ONE (15:04)
--- NOTE | 2020-09-27 15:17 | Post Operative Brief Note ---
PG Immediate Post Op with CF Date of Surgery September 27, 2020 Pre & Post Diagnosis Operation Date: 09/27/20 14:00 Pre-Op Diagnosis: Left Ureteral Stone and Hydronephrosis Post-Op Diagnosis: Left Ureteral Stone and Hydronephrosis I identified the patient and participated in the time-out.: Yes Procedure Operation Date: 09/27/20 14:00 Actual Procedures p Cystoscopy and Left Ureteral Stent Insertion(Left) - Chad Pabon MD Surgeon Cahd Pabon MD Therapist Phys none Estimated Blood Loss 10 Findings Consistent with Post-Op Diagnosis Specimens Specimen Description: Cath urine for routine C&S
--- NOTE | 2020-09-27 15:23 | Anesthesiology Progress Note ---
Date of Service September 27, 2020 Anesthesia Post Procedure Vital Signs Vital Signs: Temp Pulse Pulse Resp BP BP Pulse Ox 09/27/20 14:04 36.6 C 74 18 157/56 H 100 09/27/20 13:30 77 13 108/57 L 100 09/27/20 13:00 71 14 112/60 98 09/27/20 12:30 76 18 123/53 L 94 09/27/20 12:01 78 14 98 09/27/20 12:00 76 14 127/61 96 09/27/20 11:30 71 12 122/53 L 96 09/27/20 10:31 77 20 157/83 H 95 09/27/20 09:30 68 12 117/66 100 09/27/20 08:30 75 14 108/62 98 09/27/20 08:00 70 12 127/67 100 09/27/20 07:30 73 12 121/65 94 09/27/20 07:22 94 09/27/20 07:18 36.8 C 100 H 20 122/49 L 95 09/27/20 07:12 87 18 122/49 L 93 Pain Intensity Generalized: Pain Intensity: 2 Transfer of Care Handoff Completed per policy Notes Mental Status: alert / awake / arousable Patient Amnestic to Procedure: Yes Nausea / Vomiting: adequately controlled Pain: adequately controlled Airway Patency, RR, SpO2: stable & adequate BP & HR: stable & adequate Hydration State: stable & adequate Anesthetic Complications: no major complications apparent
[2020-09-27] MEDS ORDERED: POLYETHYLENE (MIRALAX) 17 GM PACK PO PRN (16:24)
[2020-09-27] MEDS ORDERED: ALUMINUM/MAGNESIUM SUSP 30 ML UDC PO PRN (16:24)
[2020-09-27] MEDS ORDERED: MAGNESIUM HYDROXIDE SUSP 30 ML UDC PO PRN (16:24)
[2020-09-27] MEDS ORDERED: CALCIUM CARBONATE 500 MG CHEWABLE TAB PO PRN (16:35)
[2020-09-27] MEDS ORDERED: Heparin IV Standard *NO* Bolus IV SCH (16:45)
[2020-09-27 17:21] LABS: Basophils # (auto) 0.01 K/uL (0-0.2); Basophils % (auto) 0.1 %; Eosinophils # (auto) 0.01 K/uL (0-0.5); Eosinophils % (auto) 0.1 %; Hemoglobin 9.7 g/dL (12.0-16.0); Immature Granulocytes # (auto) 0.01 K/uL (0.00-0.02); Immature Granulocytes % (auto) 0.1 %; Lymphocytes # (auto) 0.68 K/uL (1.2-3.4); Lymphocytes % (auto) 8.2 %; Mean Corpuscular Hemoglobin 29.7 pg (25-34); Mean Corpuscular Hgb Conc 31.3 g/dL (32-36); Mean Corpuscular Volume 94.8 fL (80-100); Mean Platelet Volume 10.7 fL (7.4-10.4); Monocytes # (auto) 0.26 K/uL (0.11-0.59); Monocytes % (auto) 3.2 %; Neutrophils # (auto) 7.28 K/uL (1.4-6.5); Neutrophils % (auto) 88.3 %; Platelet Count 227 K/uL (130-400); RDW Coefficient of Variation 17.6 % (11.5-14.5); RDW Standard Deviation 59.6 fL (36.4-46.3); Red Blood Count 3.27 M/uL (4.2-5.4); White Blood Count 8.25 K/uL (4.8-10.8)
[2020-09-27] MEDS: cefTRIAXone SODIUM 2,000 MG in DEXTROSE 5% 50 ML IV SCH (17:46)
[2020-09-27] MEDS: HEPARIN SODIUM/DEXTROSE 25,000 UNITS/500 ML BAG IV SCH (17:47)
[2020-09-27] MEDS: buPROPion SR 100 MG TABCR PO SCH (18:22)
[2020-09-27] MEDS: busPIRone 5 MG TAB PO SCH ×2 (18:22→21:03)
[2020-09-27] MEDS: CALCIUM 600MG + VIT D 400 IU TAB PO SCH (21:03)
[2020-09-27] MEDS: DULoxetine HCL 20 MG CAP PO SCH (21:03)
[2020-09-27] MEDS: OXYBUTYNIN CHLORIDE 5 MG TAB PO SCH (21:03)
[2020-09-27] MEDS: ATORVASTATIN 40 MG TAB PO SCH (21:04)
[2020-09-27] MEDS: METOPROLOL SUCC 25MG EXT REL TAB PO SCH (21:04)
[2020-09-27 21:05] LABS: INR 1.4 (0.9-1.1); Partial Thromboplastin Ratio 1.5; Partial Thromboplastin Time 41.6 Seconds (21.0-31.0); Prothrombin Time 14.5 Seconds (9.0-12.0)
[2020-09-27] MEDS: allopurinoL 100 MG TAB PO SCH (21:05)
[2020-09-27] MEDS: oxyCODONE HCL IR 5 MG TAB (IMMEDIATE RELEASE) PO PRN (21:05)
[2020-09-27] MEDS: HYDROCORTISONE ACETATE 25 MG SUPP PR SCH (21:31)
[2020-09-28] MEDS: DOXYCYCLINE HYCLATE 100 MG CAP PO SCH ×3 (00:22→22:37)
[2020-09-28 01:15] LABS: Basophils # (auto) 0.01 K/uL (0-0.2); Basophils % (auto) 0.1 %; Eosinophils # (auto) 0.04 K/uL (0-0.5); Eosinophils % (auto) 0.5 %; Hematocrit (blood only) 27.7 % (37-47); Hemoglobin 8.9 g/dL (12.0-16.0); Immature Granulocytes # (auto) 0.01 K/uL (0.00-0.02); Immature Granulocytes % (auto) 0.1 %; Lymphocytes # (auto) 0.53 K/uL (1.2-3.4); Lymphocytes % (auto) 6.4 %; Mean Corpuscular Hemoglobin 30.3 pg (25-34); Mean Corpuscular Hgb Conc 32.1 g/dL (32-36); Mean Corpuscular Volume 94.2 fL (80-100); Mean Platelet Volume 10.2 fL (7.4-10.4); Monocytes # (auto) 0.34 K/uL (0.11-0.59); Monocytes % (auto) 4.1 %; Neutrophils # (auto) 7.37 K/uL (1.4-6.5); Neutrophils % (auto) 88.8 %; Platelet Count 220 K/uL (130-400); RDW Coefficient of Variation 17.6 % (11.5-14.5); RDW Standard Deviation 59.9 fL (36.4-46.3); Red Blood Count 2.94 M/uL (4.2-5.4)
[2020-09-28 01:26] LABS: INR 1.4 (0.9-1.1); Prothrombin Time 14.6 Seconds (9.0-12.0)
[2020-09-28 01:44] LABS: Albumin Globulin Ratio 0.6 (0.9-2); Albumin Level 1.7 gm/dl (3.4-5.0); BUN Creatinine Ratio 25.5 (10-20); Bilirubin,Total 0.2 mg/dl (0.2-1); Creatinine Clr Calc Pharmacy 31.2 ml/min; Est GFR (African American) 30.8; Est GFR (Non-African American) 26.5; Globulin 2.6 gm/dl (2.5-4.0); Magnesium 2.1 mg/dl (1.8-2.4); Potassium 3.9 mmol/L (3.5-5.1); Total Protein 4.3 gm/dl (6.4-8.2)
[2020-09-28 01:45] LABS: Partial Thromboplastin Ratio > 5.0
[2020-09-28 01:47] LABS: Partial Thromboplastin Time > 139.0 Seconds (21.0-31.0)
[2020-09-28 03:30] LABS: Partial Thromboplastin Ratio 3.9
[2020-09-28 03:43] LABS: Partial Thromboplastin Time 108.9 Seconds (21.0-31.0)
[2020-09-28 04:25] LABS: Partial Thromboplastin Ratio 1.6
[2020-09-28 04:40] LABS: Partial Thromboplastin Time 44.1 Seconds (21.0-31.0)
[2020-09-28] MEDS: buPROPion SR 100 MG TABCR PO SCH ×2 (06:29→12:05)
[2020-09-28] MEDS: allopurinoL 100 MG TAB PO SCH ×2 (07:48→20:26)
[2020-09-28] MEDS: POTASSIUM CHLORIDE 10 MEQ TABCR PO SCH (07:48)
[2020-09-28] MEDS: METOPROLOL SUCC 25MG EXT REL TAB PO SCH ×2 (07:48→20:26)
[2020-09-28] MEDS: MULTIVITAMIN CHEWABLE TAB PO SCH (07:48)
[2020-09-28] MEDS: ADVANCED PROBIOTIC 1250 MG CAPSULE PO SCH (07:48)
[2020-09-28] MEDS: CHOLECALCIFEROL 1,000 UNITS 25 MCG TAB PO SCH (07:48)
[2020-09-28] MEDS: OXYBUTYNIN CHLORIDE 5 MG TAB PO SCH ×2 (07:49→20:27)
[2020-09-28] MEDS: busPIRone 5 MG TAB PO SCH ×3 (07:49→20:27)
[2020-09-28] MEDS: CALCIUM 600MG + VIT D 400 IU TAB PO SCH ×2 (07:49→20:26)
[2020-09-28] MEDS: oxyCODONE HCL IR 5 MG TAB (IMMEDIATE RELEASE) PO PRN ×2 (07:53→19:45)
--- NOTE | 2020-09-28 08:03 | Anesthesiology Progress Note ---
Date of Service September 28, 2020 Anesthesia Post Procedure Vital Signs Vital Signs: Temp Pulse Pulse Pulse Resp BP BP 09/28/20 07:18 36.7 C 68 18 135/77 09/28/20 03:00 36.6 C 68 16 107/62 09/28/20 01:00 80 09/27/20 23:00 36.4 C L 66 20 103/51 L 09/27/20 19:55 36.7 C 70 18 101/67 09/27/20 18:29 36.5 C 76 17 109/66 09/27/20 17:14 36.5 C 67 20 126/75 09/27/20 16:46 36.4 C L 64 19 110/70 09/27/20 16:35 36.5 C 64 16 145/81 H 09/27/20 15:55 63 14 159/64 H 09/27/20 15:40 36.2 C L 60 16 157/91 H 09/27/20 15:30 61 15 161/71 H 09/27/20 15:20 64 14 159/62 H 09/27/20 15:11 36.1 C L 62 16 158/77 H 09/27/20 14:04 36.6 C 74 18 157/56 H 09/27/20 13:30 77 13 108/57 L 09/27/20 13:00 71 14 112/60 09/27/20 12:30 76 18 123/53 L 09/27/20 12:01 78 14 09/27/20 12:00 76 14 127/61 09/27/20 11:30 71 12 122/53 L 09/27/20 10:31 77 20 157/83 H 09/27/20 09:30 68 12 117/66 09/27/20 08:30 75 14 108/62 Pulse Ox 09/28/20 07:18 97 09/28/20 03:00 99 09/28/20 01:00 09/27/20 23:00 95 09/27/20 19:55 98 09/27/20 18:29 96 09/27/20 17:14 95 09/27/20 16:46 97 09/27/20 16:35 93 09/27/20 15:55 97 09/27/20 15:40 94 09/27/20 15:30 94 09/27/20 15:20 93 09/27/20 15:11 95 09/27/20 14:04 100 09/27/20 13:30 100 09/27/20 13:00 98 09/27/20 12:30 94 09/27/20 12:01 98 09/27/20 12:00 96 09/27/20 11:30 96 09/27/20 10:31 95 09/27/20 09:30 100 09/27/20 08:30 98 Pain Intensity Generalized: Pain Intensity: 2 Notes Mental Status: alert / awake / arousable and participated in evaluation Patient Amnestic to Procedure: Yes Nausea / Vomiting: adequately controlled Pain: adequately controlled Airway Patency, RR, SpO2: stable & adequate BP & HR: stable & adequate Hydration State: stable & adequate Anesthetic Complications: no major complications apparent and Pt Satisfied with anesthetic care
[2020-09-28] MEDS ORDERED: PANTOprazole 40 MG TAB PO SCH (09:00)
--- NOTE | 2020-09-28 09:58 | Urology Progress Note ---
Date of Service September 28, 2020 Assessment & Plan (1) Calculus, ureteral: 74 yo F POD #1 s/p left stent placement with Dr. Pabon secondary to multiple obstructing calculi in distal left ureter. - Subjectively feels some improvement today - Labs reviewed: WBC improved to 8.30, Hgb decreased to 8.9, creatinine increased to 1.85 - continue to trend - Per chart review, IVF on hold by primary team for now due to , mild volume overload - Tolerating left ureteral stent with minimal bother - Urine and blood cultures pending - continue broad spectrum abx, follow cultures - Expected clinical course reviewed, all questions answered - Will arrange outpatient follow-up with our service for definitive stone management - Will continue to follow peripherally Admission and Anticipated Discharge Date Admission Date: September 27, 2020 Subjective 74 yo F POD #1 s/p left stent placement with Dr. Pabon secondary to multiple obstructing calculi in distal left ureter. Pt seen and examined at bedside this AM. Continues to feel weak, but improved since yesterday. No abdominal, suprapubic or flank pain. Reports some mild low back pain. Ramírez catheter intact, patent, and draining clear yellow urine with some sediment noted. Tolerating Ramírez catheter. Tolerating diet - ate breakfast this AM. Mild nausea, no vomiting. Reports occasional chills, no fever. CT A/P wo con on 09/27/20 showed numerous obstructing calculi/Steinstrasse seen in the distal left ureter above the UVJ. Fragments measure up to at least 5 mm, and this causes moderate left-sided hydroureteronephrosis. Additional tiny fragments/punctate calculi are suggested in bilateral kidneys. Chart review: Afebrile. Creatinine 1.85 (previously 1.59), Hgb 8.9 (previously 9.7), WBC 8.30 (previously 14.4). Prelim urine culture showing prelim gram negative bacilli and BCx prelim showing no growth x 24 hours. On IV Ceftriaxone. On Heparin gtt. No additional concerns today. Review of Systems Constitutional: as per Subjective / HPI Gastrointestinal: as per Subjective / HPI Genitourinary: as per Subjective / HPI Physical Exam Constitutional: well developed, well nourished and + obese; no acute distress Respiratory: normal respiratory effort and able to speak in complete sentences; no respiratory distress and no labored breathing Cardiovascular: Extremities: + edema (B/L lower extremity edema) Gastrointestinal (Abdomen): Inspection/Auscultation: abdomen normal to inspection; abdomen not distended Percussion/Palpation: abdomen soft; abdomen nontender and no guarding Musculoskeletal: Head/Neck/Chest: normocephalic and head atraumatic Skin: + ecchymosis (scattered B/L upper extremities) and + erythema (left lower extremity cellulitis) Neurologic: moves all extremities and awake Psychiatric: Orientation: alert and oriented x 3 Genitourinary: no CVA tenderness Ramírez catheter intact, patent, draining c lear yellow urine with some sediment Results & Data ([facility]) Vital Signs (Past 12 Hours) Vital Signs Temp Pulse Pulse Resp BP Pulse Ox 09/28/20 08:00 64 09/28/20 07:18 36.7 C 68 18 135/77 97 09/28/20 03:00 36.6 C 68 16 107/62 99 09/28/20 01:00 80 09/27/20 23:00 36.4 C L 66 20 103/51 L 95 PG Care Time/CCT Total # of Minutes Spent Total Time Spent with Patient: Total time spent is greater than 50% in coordination of care (as documented) at patient's floor/unit and/or counseling patient: Coding Level of Care Code 69623 Subseq Hosp Care Lvl 2 Diagnoses Calculus, ureteral N20.1
[2020-09-28 11:46] LABS: Eosinophils # (auto) 0.05 K/uL (0-0.5); Eosinophils % (auto) 0.5 %; Hematocrit (blood only) 27.1 % (37-47); Hemoglobin 8.6 g/dL (12.0-16.0); Immature Granulocytes # (auto) 0.02 K/uL (0.00-0.02); Immature Granulocytes % (auto) 0.2 %; Lymphocytes # (auto) 0.48 K/uL (1.2-3.4); Lymphocytes % (auto) 5.1 %; Mean Corpuscular Hemoglobin 30.3 pg (25-34); Mean Corpuscular Hgb Conc 31.7 g/dL (32-36); Mean Corpuscular Volume 95.4 fL (80-100); Monocytes # (auto) 0.23 K/uL (0.11-0.59); Monocytes % (auto) 2.5 %; Neutrophils # (auto) 8.57 K/uL (1.4-6.5); Neutrophils % (auto) 91.7 %; Platelet Count 212 K/uL (130-400); RDW Coefficient of Variation 17.7 % (11.5-14.5); RDW Standard Deviation 61.2 fL (36.4-46.3); Red Blood Count 2.84 M/uL (4.2-5.4); White Blood Count 9.35 K/uL (4.8-10.8)
[2020-09-28 12:16] LABS: Partial Thromboplastin Time 112.4 Seconds (21.0-31.0)
[2020-09-28 12:20] LABS: BUN Creatinine Ratio 28.1 (10-20); Calcium 8.2 mg/dl (8.5-10.1); Creatinine Clr Calc Pharmacy 35.5 ml/min; Est GFR (African American) 35.9; Est GFR (Non-African American) 30.9; Potassium 3.9 mmol/L (3.5-5.1)
[2020-09-28] MEDS: HEPARIN SODIUM/DEXTROSE 25,000 UNITS/500 ML BAG IV SCH (13:29)
--- NOTE | 2020-09-28 14:48 | Hospitalist Progress Note ---
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 coli sepsis secondary to obstructive uropathy/renal lithiasis requiring left ureteral stenting who presents to ED secondary to weakness x2 days. (1) Weakness: (2) Calculus, ureteral: Acute renal failure, on CKD stage III CT A/P: There are numerous obstructing calculi/Steinstrasse seen in the distal left ureter above the vesicoureteral junction. Fragments measure up to at least 5 mm, and this causes moderate left-sided hydroureteronephrosis. Status post cystoscopy with left ureteral stent placement Stable after procedure Creatinine improving from 1.8 now 1.6, baseline 0.8 Continue monitoring (3) Acute UTI: recent urine culture + e.coli Urine culture: Gram-negative bacilli continue rocephin Day #2 Follow-up urine and blood cultures (4) Cellulitis of left leg: wound culture, wound nurse consult IV rocephin and doxycycline ordered Continue to monitor (5) hematochezia, possible lower GI bleed Colonoscopy January 12, 2020 reveals diverticulosis, internal hemorrhoids Hemoglobin 9.5, today 8.6 Currently on heparin drip, will continue to monitor hemoglobin GI consulted, plan for possible colonoscopy tomorrow complains of diarrhea daily x 1 month stool culture, stool for diff --No diarrhea today (6) Chronic diastolic heart failure: (7) Aortic stenosis, severe: (8) Apical ballooning syndrome: Chronic diastolic CHF with apical ballooning syndrome on 06/2020 echo Severe calcific aortic stenosis -work up In progress Follows [facility] cardiology Continue to hold Lasix Resume when able ( takes 80mg fr, sa, sun and 60mg all other days) continue metoprolol (9) CKD (chronic kidney disease), stage III: Management per above (10) Anemia: Per admitting service notes H&H 9.5 and 29.6 today On 09/25/2020 H&H was 11.1 She does receive vitamin B12 injections in setting of history of gastric bypass Obtain FOBT Iron studies 07/27/2020 revealed ferritin 3476, iron 52, transferrin saturation 23, TIBC 230 Currently warfarin on hold in setting of upcoming procedure, postoperatively will place on heparin drip until determine GIB Last cspope 01/2020 showed sigmoid divertic, int hemorrhoids - on anusol --Will need iron supplement (11) Factor 5 Leiden mutation, heterozygous: History of recurrent DVT/PE, [place] filter in place Prior to admission was on Lovenox bridge, last dose a.m. of 09/26 for procedure on 09/27 Continue heparin drip When stable will resume Coumadin, per MTM recommendations are 8mg x 2 days and then resume normal dosing of 2 mg Friday and Friday and 4 mg all other days (12) Wheelchair dependence: Patient with chronic left prosthetic hip infection and is wheelchair dependent At baseline she is able to do self transfers PT and OT evaluation (13) NICOLASA on CPAP: CPAP at HS (14) DVT prophylaxis: hx of DVT/PE, on chronic Coumadin therapy Heparin drip Disposition: Lives with children at home Will need PT and OT evaluation Follow-up: PCP Dr. Shea upon discharge Admission and Anticipated Discharge Date Admission Date: September 27, 2020 Subjective Follow-up for left ureteral stones, hydronephrosis, acute renal failure, anemia, etc. Seen resting in bed, comfortable, not in distress States she feels improved compared to yesterday but still feels very weak overall No abdominal pain, no nausea vomiting, no fevers or chills No hematochezia or melena today Denies shortness of breath, chest pain, palpitations, dizziness, headache Denies pain in her leg No other symptoms Review of Systems Review of Systems: All systems reviewed & are unremarkable except as noted in Subjective Physical Exam Physical Exam: General- oriented x 3, not in distress, speaks in sentences with no effort or accessory muscle use Head- atraumatic Eyes- PERRL, EOMI, anicteric ENT- oropharynx clear Neck- supple, no JVD, no adenopathy, no thyromegaly; carotids +2/2, no bruits appreciated Lungs- clear to auscultation bilaterally, no rales/wheezes Heart- normal rate, regular rhythm; no murmur, no gallop, no rub appreciated Abdomen- normal bowel sounds, nondistended, soft, nontender, no masses or hepatosplenomegaly Extremities-left upper extremity: Positive significant edema, mild erythema in the forearm, with small area of hematoma, no tenderness Left lower extremity: Positive small wound on the anterior bella, with surrounding erythema, and warmth, mild edema Right lower extremity: Essentially normal No pretibial edema, no calf tenderness; peripheral pulses intact Neuro- alert, oriented x 3; CN 2-12 grossly intact; motor 5/5 bi laterally;sensation 100% on all extremities; no other gross focal neurologic deficits Skin- warm & dry Results & Data Results & Data ([facility]) Vital Signs (Past 12 Hours) Vital Signs Temp Pulse Pulse Resp BP Pulse Ox 09/28/20 11:50 36.7 C 66 18 105/68 97 09/28/20 08:00 64 09/28/20 07:18 36.7 C 68 18 135/77 97 09/28/20 03:00 36.6 C 68 16 107/62 99 Laboratory Results Laboratory Results - last 24 hr 09/27/20 09/27/20 09/28/20 20:43 Unknown 01:00 WBC 8.30 RBC 2.94 L Hgb 8.9 L Hct 27.7 L MCV 94.2 MCH 30.3 MCHC 32.1 RDW Std Deviation 59.9 H RDW Coeff of Karla 17.6 H Plt Count 220 MPV 10.2 Immature Gran % (Auto) 0.1 Neut % (Auto) 88.8 Lymph % (Auto) 6.4 [place] % (Auto) 4.1 Eos % (Auto) 0.5 Baso % (Auto) 0.1 Neut # (Auto) 7.37 H Lymph # (Auto) 0.53 L [place] # (Auto) 0.34 Eos # (Auto) 0.04 Baso # (Auto) 0.01 Immature Gran # (Auto) 0.01 PT 14.5 H INR 1.4 H APTT 41.6 H PTT Ratio 1.5 Sodium Potassium Chloride Carbon Dioxide Anion Gap BUN Creatinine Est Cr Clr Drug Dosing Est GFR ( Amer) Est GFR (Non-Af Amer) BUN/Creatinine Ratio Glucose Calcium Magnesium Total Bilirubin AST ALT Alkaline Phosphatase Total Protein Albumin Globulin Albumin/Globulin Ratio Nasal Screen MRSA (PCR) Negative 09/28/20 09/28/20 09/28/20 01:00 01:00 01:00 WBC RBC Hgb Hct MCV MCH MCHC RDW Std Deviation RDW Coeff of Karla Plt Count MPV Immature Gran % (Auto) Neut % (Auto) Lymph % (Auto) Madison % (Auto) Eos % (Auto) Baso % (Auto) Neut # (Auto) Lymph # (Auto) Madison # (Auto) Eos # (Auto) Baso # (Auto) Immature Gran # (Auto) PT 14.6 H INR 1.4 H APTT > 139.0 H* PTT Ratio > 5.0 Sodium 140 Potassium 3.9 D Chloride 107 Carbon Dioxide 29 Anion Gap 5.0 BUN 47 H Creatinine 1.85 H Est Cr Clr Drug Dosing 31.2 Est GFR ( Amer) 30.8 Est GFR (Non-Af Amer) 26.5 BUN/Creatinine Ratio 25.5 H Glucose 87 Calcium 8.0 L Magnesium 2.1 Total Bilirubin 0.2 AST 26 ALT 23 Alkaline Phosphatase 90 Total Protein 4.3 L Albumin 1.7 L Globulin 2.6 Albumin/Globulin Ratio 0.6 L Nasal Screen MRSA (PCR) 09/28/20 09/28/20 09/28/20 02:59 04:00 11:30 WBC RBC Hgb Hct MCV MCH MCHC RDW Std Deviation RDW Coeff of Karla Plt Count MPV Immature Gran % (Auto) Neut % (Auto) Lymph % (Auto) [place] % (Auto) Eos % (Auto) Baso % (Auto) Neut # (Auto) Lymph # (Auto) [place] # (Auto) Eos # (Auto) Baso # (Auto) Immature Gran # (Auto) PT INR APTT 108.9 H* 44.1 H 112.4 H* PTT Ratio 3.9 1.6 4.0 Sodium Potassium Chloride Carbon Dioxide Anion Gap BUN Creatinine Est Cr Clr Drug Dosing Est GFR ( Amer) Est GFR (Non-Af Amer) BUN/Creatinine Ratio Glucose Calcium Magnesium Total Bilirubin AST ALT Alkaline Phosphatase Total Protein Albumin Globulin Albumin/Globulin Ratio Nasal Screen MRSA (PCR) 09/28/20 09/28/20 11:30 11:30 WBC 9.35 RBC 2.84 L Hgb 8.6 L Hct 27.1 L MCV 95.4 MCH 30.3 MCHC 31.7 L RDW Std Deviation 61.2 H RDW Coeff of Karla 17.7 H Plt Count 212 MPV 11.0 H Immature Gran % (Auto) 0.2 Neut % (Auto) 91.7 Lymph % (Auto) 5.1 [place] % (Auto) 2.5 Eos % (Auto) 0.5 Baso % (Auto) 0.0 Neut # (Auto) 8.57 H Lymph # (Auto) 0.48 L [place] # (Auto) 0.23 Eos # (Auto) 0.05 Baso # (Auto) 0.00 Immature Gran # (Auto) 0.02 PT INR APTT PTT Ratio Sodium 139 Potassium 3.9 Chloride 108 H Carbon Dioxide 26 Anion Gap 5.0 BUN 46 H Creatinine 1.63 H Est Cr Clr Drug Dosing 35.5 Est GFR ( Amer) 35.9 Est GFR (Non-Af Amer) 30.9 BUN/Creatinine Ratio 28.1 H Glucose 97 Calcium 8.2 L Magnesium Total Bilirubin AST ALT Alkaline Phosphatase Total Protein Albumin Globulin Albumin/Globulin Ratio Nasal Screen MRSA (PCR)
--- NOTE | 2020-09-28 16:56 | Ultrasound Report ---
LEFT UPPER EXTREMITY VENOUS DOPPLER HISTORY: left arm edema, r/o dvt COMPARISON STUDY: None. FINDINGS: The left internal jugular vein is patent. There is normal flow within the left subclavian v ein. There is normal flow and compressibility within the left axillary, basilic, brachial, radial, ul charity, and visualized cephalic veins. IMPRESSION: No DVT within the left upper extremity. ACT 112: Negative or not required by law. Electronically signed by: Lane Bridges M.D. 09/28/2020 4:54 PM
--- NOTE | 2020-09-28 17:00 | Gastrointestinal Consultation ---
Date of Consultation September 28, 2020 Assessment & Plan (1) Rectal bleeding: Most likely secondary to anal fissure or hemorrhoids. However, she does seem to have had a 1-2 point drop in her Hb in the past month (though may very due to CHF and diuretic use). Other differentials considered are a diverticular bleed. Unlikely to be caused by colon cancer because she had colonoscopy 8 months ago, though prep was poor. Will prep tonight and consider colonoscopy or possible flex sig tomorrow. Pt was agreeable to this plan. Present on Admission?: Yes Supervising Physician Co-Signing Physician Notes I discussed the case on the phone with Ms. Nelson, the inpatient attending today is Dr. Azar. The patient will undergo a bowel preparation this evening to determine if she may have a colonoscopy tomorrow given the hematochezia we would also recommend screening for C. difficile as she did have a recent course of antibiotics. History of Present Illness Reason for Consultation: Hematochezia Requesting Physician: Dr. Evans Attending Physician: Pablito Evans MD History of Present Illness Ms. Pb Liang is a 74 yr old female pt of Dr. Shea with a hx of severe , Afib, CHF with preserved EF,PE, Factor 4 Leiden mutation, Sleep apnea, DM, CKD3, depression, GERD, cellulitis. She was admitted yesterday and underwent cystoscopy and ureteral stenting for stone. She is awake, alert, oriented. She tells me that she has had rectal bleeding, nearly every day for the past month. The bleeding is a bright red and is on "the end" of the soft formed BM or drips into the toilet between the BMs. She also has severe anal pain with passing a BM. She denies any recent constipation or straining. She has not had any abdominal pain. She does get some nausea intermittently. Initially she had diarrhea but recently stools have been soft, formed. Hb today is 8.6. down from 11 earlier in September. Anemia is normocytic. She is on warfarin which has been held. Most recent INR today is 1.4. Most recent colonoscopy was 01/12/[address] Vicente for hx of adenomatous polyps with findings of internal hemorrhoids, diverticulosis, no polyps. Allergies Allergy/AdvReac Type Severity Reaction Status Date / Time adhesive Allergy Intermediate BLISTERS Verified 09/27/20 07:42 WITH STERI-STRIPS Iodinated Contrast Media Allergy Intermediate hive Verified 09/27/20 07:42 [Iodinated Contrast- Oral and IV Dye] naproxen Allergy Intermediate SWELLING - Verified 09/27/20 07:42 TOLERATES ESTEVES-[address] HALL ciprofloxacin Allergy Mild RASH Verified 09/27/20 07:42 Quinolones Allergy Mild NEUROLOGIC Verified 09/27/20 07:42 SYMPTOMS Home Medications Medication Instructions Recorded Confirmed Type allopurinol 100 mg PO BID 06/23/19 09/27/20 History ascorbic acid (vitamin C) [Vitamin 250 mg PO BID 06/23/19 09/27/20 History C] buspirone 5 mg PO TID 06/23/19 09/27/20 History cyanocobalamin (vitamin B-12) 1,000 mcg IM UD 06/23/19 09/27/20 History duloxetine [Cymbalta] 40 mg PO HS 06/23/19 09/27/20 History ondansetron 4 mg PO Q8H PRN 06/23/19 09/27/20 History oxycodone [Roxicodone] 5 mg PO Q4 PRN 06/23/19 09/27/20 History Flintstones Complete 1 tab PO QAM 08/27/19 09/27/20 History atorvastatin 40 mg PO PM 12/31/19 09/27/20 History bupropion HCl [Wellbutrin SR] 200 mg PO BID 12/31/19 09/27/20 History calcium carbonate [Tums Extra 750 mg PO UD PRN 12/31/19 09/27/20 History Strength Smoothies] calcium carbonate-vitamin D3 1 cap PO BID 12/31/19 09/27/20 History [Calcium 600 with Vitamin D3] cholecalciferol (vitamin D3) 2,000 unit PO QAM 12/31/19 09/27/20 History [Vitamin D3] nystatin 1 appln TOP BID PRN 12/31/19 09/27/20 History omeprazole 20 mg PO QAM 12/31/19 09/27/20 History oxybutynin chloride 5 mg PO BID 12/31/19 09/27/20 History Probiotic 3,000 mmu cells PO QAM 06/21/20 09/27/20 History potassium chloride [K-Tab] 10 meq PO QAM 06/21/20 09/27/20 History warfarin 4 mg PO SUMOWETHSA 06/21/20 09/27/20 History warfarin 2 mg PO TUFR 08/01/20 09/27/20 History hydrocortisone acetate [Anusol-HC] [address] HS #24 ea 08/03/20 09/27/20 Rx cefdinir 300 mg PO BID 10 Days #19 cap 09/20/20 09/27/20 Rx enoxaparin [Lovenox] 80 mg SUBCUT Q12H 09/25/20 09/27/20 History furosemide 20 mg PO SUFRSA 09/25/20 09/27/20 History furosemide [Lasix] 40 mg PO QAM 09/25/20 09/27/20 History metoprolol succinate 12.5 mg PO BID 09/25/20 09/27/20 History furosemide 40 mg PO MOTUWETH 09/27/20 09/27/20 History Patient History Medical History (Updated 09/28/20 @ 17:38 by MORGAN Leos) Aortic stenosis, severe Apical ballooning syndrome Noted on RAHUL. Per cardiology consult , "Only mild left ventricular dysfunction and suspect stress mediated etiology rather than acute ischemic event. Patient on appropriate beta-sheryl therapy." Apical wall motion abnormality resolved on 08/04/20 ECHO Atrial fibrillation follows with Dr. Bui> NO PACER Bleeding hemorrhoids TO BE GETTING SURGERY FOR THIS IN NEAR FUTURE Carotid artery stenosis [place] , 50%, [place] 50-69% by 04/09/19 doppler Chronic diastolic heart failure CKD (chronic kidney disease), stage III Degenerative disc disease Depression Dyslipidemia Factor 5 Leiden mutation, heterozygous recurrent PE/DVT; status post IVC filter placement, on Coumadin Frequent UTI GERD (gastroesophageal reflux disease) Gout [place] filter in place History of COPD mild--inhaler/nebulizer prn History of esophageal disorder esophageal diverticulum History of peripheral neuropathy bilateral feet History of stress incontinence Hx of cancer of uterus diagnosed 03/2019---radiation only Hx of iron deficiency anemia Hypertension Intestinal disorder post op malabsorption Non-ST elevation IN (NSTEMI) On anticoagulant therapy warfarin daily NICOLASA on CPAP Pes planus Post traumatic stress disorder Pulmonary embolism hx of bilateral ~2002 2/2 FFL Sleep apnea CPAP Spinal stenosis Stroke 06/03/2019 after I&D left hip--vision loss in left eye--no neurologist Vision abnormalities r peripheral vision loss( posterior ischemic optic neuropathyleft eye), left side altered vision like looking through a screen door Weakness Wheelchair dependence Surgical History H/O cystoscopy 06/23/20 and 07/20/20 [facility] History of arthroplasty of left hip 2006 @ [facility]--infected after, multiple sx's History of biopsy of bladder benign History of colonoscopy with polypectomy History of incision and drainage 05/2019 of left hip History of left hip replacement 03/2019 @ [facility] History of left shoulder replacement History of right hip replacement 2005 @ [facility] History of tonsillectomy and adenoidectomy History of tooth extraction Hx of gastric bypass Hx of tubal ligation Hx of umbilical hernia repair mesh inserted S/P colon resection 1984 @ [facility] complete sigmoid removed d/t diverticular disease Family History Mother , age 91 Heart disease Family hx colonic polyps Father , age 42 Factor V deficiency Myocardial infarction Sister No problems noted. Sister Endometrial cancer Brother Family hx colonic polyps Brother , age 50 Meningitis Brother No problems noted. Brother No problems noted. Son No problems noted. Son No problems noted. Son Colon abnormality Son , in his 30 `s , " girl friend over dosed the patients son " Drug overdose Grandfather (Paternal) Family history of diabetes mellitus Family hx of colon cancer Other No family history of adverse response to anesthesia Social History Smoking Status: Former smoker Age Started Using Tobacco: 22; packs per day: 0.5; Years Smoked: 25; Cigarettes Per Day: 10; Second Hand Exposure: Yes; Hx Alcohol Use: No Hx Substance Use: No Preferred Language: Telugu Communication Ability: Effective Visual Impairment: No Limitations Hearing Ability: Normal Narrow Fabrics Weaver Required: No Beliefs That Will Affect Care: None marital status: / Current Living Situation: Family Current Living Situation Comment: Lives w/ son current occupational status: retired 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 Feels Safe at Home: Yes Assistive Devices: Glasses and Wheelchair Review of Systems Review of Systems: ROS: Gen: Denies weakness, fevers, weight loss Eyes: No eye redness, or pain, no recent vision changes Resp: + chronic exertional SOB but not worsening during the past month; no cough Cardio: + irregular beats (Hx A-fib), no chest pain GI: No abdominal pain, no vomiting; + mild ongoing nausea not worsening in the past month : Denies pain on urination Skin: No jaundice, itching or new rashes Physical Exam Constitutional: + ill appearing (chronically), + obese and cooperative; no acute distress Eyes: PERRL, conjunctivae normal, anicteric sclerae ENMT: external ear and nose normal, oropharynx normal Neck: trachea midline, no thyromegaly Respiratory: normal respiratory effort, lungs clear to auscultation Cardiovascular: Rate/Rhythm: regular rate and regular rhythm Heart Sounds: + murmur (3/6 systolic consistent with severe ) Vessels: no JVD Gastrointestinal (Abdomen): Inspection/Auscultation: abdomen normal to inspection; abdomen not distended Percussion/Palpation: abdomen soft; abdomen nontender and no abdominal mass Skin: left lower leg with dressing in place; both lower legs with slight redness/dry skin Neurologic: PERRL, EOMI, accommodation nl, no face palsy, no dysarthria Psychiatric: A+Ox3, euthymic affect Lymphatic: no cervical or axillary lymphadenopathy Results & Data ([facility]) Vital Signs (Past 12 Hours) Vital Signs Temp Pulse Pulse Resp BP Pulse Ox 09/28/20 15:10 36.7 C 71 18 125/73 95 09/28/20 15:05 74 09/28/20 11:50 36.7 C 66 18 105/68 97 09/28/20 08:00 64 09/28/20 07:18 36.7 C 68 18 135/77 97 Laboratory Results WBC 9.6, Hb 8.6, Hct 27.1, Plts 212, Na 139, K 3.9, BUN 46, Cr 1.6. INR 1.4. Diagnostic Findings CT abd/pelvis (non contrast) 09/27/20: 1. There are numerous obstructing calculi/Steinstrasse seen in the distal left ureter above the vesicoureteral junction. Fragments measure up to at least 5 mm, and this causes moderate left-sided hydroureteronephrosis. 2. 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 3. Additional tiny fragments/punctate calculi are suggested in both kidneys. 4. Postoperative change is noted involving the stomach, colon, and small bowel. There is no bowel obstruction. 5. Chronic destructive change and deformity/dislocation is again seen in the left hip. 6. Cholelithiasis. 7. The bladder wall is thickened and trabeculated and there are numerous small bladder diverticula. The appearance suggests neurogenic bladder or chronic ou tlet obstruction. Correlation with clinical findings and urinalysis will be required.
[2020-09-28] MEDS: cefTRIAXone SODIUM 2,000 MG in DEXTROSE 5% 50 ML IV SCH (17:07)
[2020-09-28] MEDS ORDERED: bisacodyL 5 MG TABEC PO ONE (17:42)
[2020-09-28 19:52] LABS: Hematocrit (blood only) 27.6 % (37-47); Hemoglobin 8.6 g/dL (12.0-16.0)
[2020-09-28] MEDS ORDERED: LAVAGE SOLUTION 4000ML PO SCH (20:00)
[2020-09-28 20:12] LABS: Partial Thromboplastin Ratio 2.2
[2020-09-28 20:14] LABS: Partial Thromboplastin Time 61.2 Seconds (21.0-31.0)
[2020-09-28] MEDS: PANTOprazole 40 MG in SYRINGE 0 ML IV SCH (20:26)
[2020-09-28] MEDS: DULoxetine HCL 20 MG CAP PO SCH (20:27)
[2020-09-28] MEDS: ATORVASTATIN 40 MG TAB PO SCH (20:27)
[2020-09-28] MEDS: HYDROCORTISONE ACETATE 25 MG SUPP PR SCH (20:29)
[2020-09-29] MEDS: buPROPion SR 100 MG TABCR PO SCH ×2 (06:20→12:52)
[2020-09-29] MEDS: oxyCODONE HCL IR 5 MG TAB (IMMEDIATE RELEASE) PO PRN ×2 (06:20→20:55)
[2020-09-29 08:04] LABS: Partial Thromboplastin Ratio 2.2
[2020-09-29 08:05] LABS: Partial Thromboplastin Time 60.9 Seconds (21.0-31.0)
[2020-09-29] MEDS: MULTIVITAMIN CHEWABLE TAB PO SCH (08:47)
[2020-09-29] MEDS: CHOLECALCIFEROL 1,000 UNITS 25 MCG TAB PO SCH (08:48)
[2020-09-29] MEDS: ADVANCED PROBIOTIC 1250 MG CAPSULE PO SCH (08:48)
[2020-09-29] MEDS: OXYBUTYNIN CHLORIDE 5 MG TAB PO SCH ×2 (08:49→21:00)
[2020-09-29] MEDS: busPIRone 5 MG TAB PO SCH ×3 (08:49→20:59)
[2020-09-29] MEDS: POTASSIUM CHLORIDE 10 MEQ TABCR PO SCH (08:49)
[2020-09-29] MEDS: CALCIUM 600MG + VIT D 400 IU TAB PO SCH ×2 (08:50→20:59)
[2020-09-29] MEDS: METOPROLOL SUCC 25MG EXT REL TAB PO SCH ×2 (08:50→20:59)
[2020-09-29 08:51] LABS: Basophils # (auto) 0.01 K/uL (0-0.2); Basophils % (auto) 0.1 %; Eosinophils # (auto) 0.08 K/uL (0-0.5); Eosinophils % (auto) 1.2 %; Hematocrit (blood only) 25.3 % (37-47); Hemoglobin 8.1 g/dL (12.0-16.0); Immature Granulocytes # (auto) 0.02 K/uL (0.00-0.02); Immature Granulocytes % (auto) 0.3 %; Lymphocytes # (auto) 0.53 K/uL (1.2-3.4); Lymphocytes % (auto) 7.9 %; Mean Corpuscular Hemoglobin 30.6 pg (25-34); Mean Corpuscular Volume 95.5 fL (80-100); Mean Platelet Volume 11.4 fL (7.4-10.4); Monocytes # (auto) 0.33 K/uL (0.11-0.59); Monocytes % (auto) 4.9 %; Neutrophils # (auto) 5.73 K/uL (1.4-6.5); Neutrophils % (auto) 85.6 %; Platelet Count 189 K/uL (130-400); RDW Coefficient of Variation 17.8 % (11.5-14.5); Red Blood Count 2.65 M/uL (4.2-5.4)
[2020-09-29] MEDS: PANTOprazole 40 MG in SYRINGE 0 ML IV SCH ×2 (08:51→21:01)
[2020-09-29] MEDS: allopurinoL 100 MG TAB PO SCH ×2 (08:51→21:00)
[2020-09-29 08:58] LABS: BUN Creatinine Ratio 28.3 (10-20); Calcium 7.9 mg/dl (8.5-10.1); Creatinine Clr Calc Pharmacy 43.7 ml/min; Est GFR (African American) 45.4; Est GFR (Non-African American) 39.2; Potassium 3.6 mmol/L (3.5-5.1)
--- NOTE | 2020-09-29 09:01 | Gastroenterology Progress Note ---
Date of Service September 29, 2020 Assessment & Plan (1) Rectal bleeding: Most likely secondary to anal fissure or hemorrhoids. However, she does seem to have had a 1-2 point drop in her Hb in the past month (though may very due to CHF and diuretic use). Other differentials considered are a diverticular bleed. Unlikely to be caused by colon cancer because she had colonoscopy 8 months ago, though prep was poor. Attempted to prep last night for colonoscopy this morning, but took only a small amt of prep and only passed 2 formed BMs. Arranged Colonoscopy for next week on Friday. Pt tends toward constipation and will need an aggressive prep. Spoke with Dr. Evans who will likely keep her as an IP until then. Prep: per pt request will use Gatoraid. Today, tomorr and Friday: 2 doses of Miralax and 10mg of Dulcolax. Will re-evaluate on Friday based on response to prior days but will order now for: Friday: 4 doses of Miralax and 20mg Dulcolax; Friday 4 doses of Miralax. Continue to follow Hb/Hct. Please hold coumadin until colonoscopy. If on a Heparin drip, please hold 6 hrs prior. Admission and Anticipated Discharge Date Admission Date: September 28, 2020 Supervising Physician Co-Signing Physician Notes I saw and evaluated the patient. Patient has a history of diverticulosis and internal hemorrhoids and presented due to diarrhea which is now become solid stool. She has persistent low-volume hematochezia. Colonoscopy has been requested by the internal medicine service for further evaluation of note the patient is on anticoagulation Physical examination No obvious distress Obese female Impression: Patient with a history of diverticulosis and intermittent perirectal bleeding. She could certainly have an outpatient colonoscopy however the inpatient attending would like to keep this patient until after the exam next available due to scheduling at the hospital is Friday. The patient is known to have very poor bowel preparation need a 2-day in order to maximize the potential for a good examination Subjective 74 yr old female w severe , Afib, CHF with preserved EF,PE, Factor 4 Leiden mutation, Sleep apnea, DM, CKD3, depression, GERD, cellulitis. Admitted for cystoscopy and ureteral stenting for stone. Reported diarrhea, bright red rectal bleeding and pain on defecation x 1 month. Attempted to prep for colonoscopy today, but drank only 1/4 of the prep and passed two formed brown BMs last night, no diarrhea. Pt unsure if any blood on the BMs She is awake, alert, oriented. She tells me that she has had rectal bleeding, nearly every day for the past month. The bleeding is a bright red and is on "the end" of the soft formed BM or drips into the toilet between the BMs. She also has severe anal pain with passing a BM. She denies any recent constipation or straining. She has not had any abdominal pain. She does get some nausea intermittently. Initially she had diarrhea but recently stools have been soft, formed. Hb today is 8.1, down from 8.6 yesterday and 11 earlier in September. Anemia is normocytic. Most recent colonoscopy was 01/12/[address] Vicente for hx of adenomatous polyps with findings of internal hemorrhoids, diverticulosis, no polyps, but poor prep, so recommended repeat in 1 yr. Review of Systems Review of Systems: ROS: Gen: Denies weakness, fevers, weight loss Eyes: No eye redness, or pain, no recent vision changes Resp: + chronic exertional SOB but not worsening during the past month; no cough Cardio: + irregular beats (Hx A-fib), no chest pain GI: No abdominal pain, no vomiting; + mild ongoing nausea not worsening in the past month : Denies pain on urination Skin: No jaundice, itching or new rashes Physical Exam Constitutional: + ill appearing (chronically), + obese and cooperative; no acute distress Eyes: PERRL, conjunctivae normal, anicteric sclerae ENMT: external ear and nose normal, oropharynx normal Neck: trachea midline, no thyromegaly Respiratory: normal respiratory effort, lungs clear to auscultation Cardiovascular: Rate/Rhythm: regular rate and regular rhythm Heart Sounds: + murmur (3/6 systolic consistent with severe ) Vessels: no JVD Gastrointestinal (Abdomen): Inspection/Auscultation: abdomen normal to inspection; abdomen not distended Percussion/Palpation: abdomen soft; abdomen nontender and no abdominal mass Neurologic: PERRL, EOMI, accommodation nl, no face palsy, no dysarthria Psychiatric: A+Ox3, euthymic affect Lymphatic: no cervical or axillary lymphadenopathy Results & Data ([facility]) Vital Signs (Past 12 Hours) Vital Signs Temp Pulse Pulse Pulse Resp BP BP 09/29/20 08:00 36.4 C L 70 20 97/49 L 09/29/20 04:00 36.4 C L 67 20 128/74 09/28/20 22:20 74 09/28/20 22:00 36.8 C 76 18 104/63 Pulse Ox 09/29/20 08:00 96 09/29/20 04:00 96 09/28/20 22:20 09/28/20 22:00 90
[2020-09-29] MEDS ORDERED: POLYETHYLENE (MIRALAX) 17 GM PACK PO PRN (09:22)
[2020-09-29] MEDS: bisacodyL 5 MG TABEC PO SCH (09:46)
[2020-09-29] MEDS: POLYETHYLENE (MIRALAX) 17 GM PACK PO SCH (10:02)
[2020-09-29] MEDS: DOXYCYCLINE HYCLATE 100 MG CAP PO SCH (10:02)
[2020-09-29 13:13] LABS: Hematocrit (blood only) 26.5 % (37-47); Hemoglobin 8.4 g/dL (12.0-16.0)
[2020-09-29 14:40] LABS: Cdiff Antigen Positive; Cdiff Toxin A+B Negative Cdiff Toxin (Negative)
[2020-09-29] MEDS: cefTRIAXone SODIUM 2,000 MG in DEXTROSE 5% 50 ML IV SCH (17:51)
--- NOTE | 2020-09-29 18:35 | Hospitalist Progress Note ---
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 coli sepsis secondary to obstructive uropathy/renal lithiasis requiring left ureteral stenting who presents to ED secondary to weakness x2 days. (1) Weakness: (2) Calculus, ureteral: Acute renal failure, on CKD stage III CT A/P: There are numerous obstructing calculi/Steinstrasse seen in the distal left ureter above the vesicoureteral junction. Fragments measure up to at least 5 mm, and this causes moderate left-sided hydroureteronephrosis. Status post cystoscopy with left ureteral stent placement Stable after procedure Creatinine improving from 1.8 now 1.3, baseline 0.8 Continue monitoring (3) Acute UTI: recent urine culture + e.coli Urine culture: Gram-negative bacilli continue Rocephin Day #3 Follow-up urine and blood cultures (4) Cellulitis of left leg: wound culture, wound nurse consult IV rocephin and doxycycline ordered Improving Follow-up wound cultures (5) Hematochezia, possible lower GI bleed Colonoscopy January 12, 2020 reveals diverticulosis, internal hemorrhoids Hemoglobin 9.5, today 8.5 Currently on heparin drip, will continue to monitor hemoglobin GI consulted, plan for colonoscopy on Friday as patient will need several days of prep, per GI Covid screen a day prior to colonoscopy complains of diarrhea daily x 1 month stool culture, stool for diff pending (6) Chronic diastolic heart failure: (7) Aortic stenosis, severe: (8) Apical ballooning syndrome: Chronic diastolic CHF with apical ballooning syndrome on 06/2020 echo Severe calcific aortic stenosis -work up In progress Follows [facility] cardiology Continue to hold Lasix for now Resume when able ( takes 80mg fr, sa, sun and 60mg all other days) continue metoprolol (9) CKD (chronic kidney disease), stage III: Management per above (10) Anemia: Per admitting service notes H&H 9.5 and 29.6 today On 09/25/2020 H&H was 11.1 She does receive vitamin B12 injections in setting of history of gastric bypass Obtain FOBT Iron studies 07/27/2020 revealed ferritin 3476, iron 52, transferrin saturation 23, TIBC 230 Currently warfarin on hold in setting of upcoming procedure, postoperatively will place on heparin drip until determine GIB Last cspope 01/2020 showed sigmoid divertic, int hemorrhoids - on anusol --Will need iron supplement (11) Factor 5 Leiden mutation, heterozygous: History of recurrent DVT/PE, Fleischmanns filter in place Prior to admission was on Lovenox bridge, last dose a.m. of 09/26 for procedure on 09/27 Patient has minimal hematochezia today, hemoglobin stable continue heparin drip with close monitoring of hemoglobin and signs of GI bleed ing (benefits of continuing heparin to prevent venous thromboembolism in this patient outweighs risk of minimal GI bleeding) When stable will resume Coumadin, per MTM recommendations are 8mg x 2 days and then resume normal dosing of 2 mg Friday and Friday and 4 mg all other days (12) Wheelchair dependence: Patient with chronic left prosthetic hip infection and is wheelchair dependent At baseline she is able to do self transfers PT and OT evaluation (13) NICOLASA on CPAP: CPAP at HS (14) DVT prophylaxis: hx of DVT/PE, on chronic Coumadin therapy Heparin drip Disposition: Lives with children at home Will need PT and OT evaluation Follow-up: PCP Dr. Shea upon discharge Plan of care discussed with patient in detail and at length All questions were answered She is understanding, agreeable, comfortable with plan of care Admission and Anticipated Discharge Date Admission Date: September 28, 2020 Subjective Follow-up for acute renal failure, obstructive uropathy, status post ureteral stent placement, hematochezia, anemia Seen sitting up in bed, comfortable, alert, oriented x3 Dates that she feels improved compared to yesterday No problems with Ramírez catheter, no abdominal pain/nausea/vomiting/fevers or chills Reports one episode of hematochezia this morning with bowel movement-stools were loose Denies headache, dizziness, chest pain, shortness of breath No other symptoms Review of Systems Review of Systems: All systems reviewed & are unremarkable except as noted in Subjective Physical Exam Physical Exam: General- oriented x 3, not in distress, speaks in sentences with no effort or accessory muscle use Eyes- anicteric Neck- no JVD Lungs- clear breath sounds bilaterally, no rales/wheezes Heart- normal rate, regular rhythm; no murmurs Abdomen- normal bowel sounds, nondistended, soft, nontender Extremities-left upper extremity: Mild edema, erythema, small area of hematoma, no tenderness, no warmth Left lower extremity: Wound healing Erythema improving, warmth improving, no tenderness No pretibial edema, no calf tenderness Neuro- alert, oriented x 3; no gross focal neurologic deficits Skin- warm & dry Results & Data Results & Data ([facility]) Vital Signs (Past 12 Hours) Vital Signs Temp Pulse Resp BP Pulse Ox 09/29/20 16:00 36.7 C 66 20 133/72 93 09/29/20 12:00 36.4 C L 76 20 105/70 98 09/29/20 08:00 36.4 C L 70 20 97/49 L 96 Laboratory Results Laboratory Results - last 24 hr 09/28/20 09/28/20 09/29/20 19:40 19:40 07:26 WBC RBC Hgb 8.6 L Hct 27.6 L MCV MCH MCHC RDW Std Deviation RDW Coeff of Karla Plt Count MPV Immature Gran % (Auto) Neut % (Auto) Lymph % (Auto) [place] % (Auto) Eos % (Auto) Baso % (Auto) Neut # (Auto) Lymph # (Auto) [place]ing # (Auto) Eos # (Auto) Baso # (Auto) Immature Gran # (Auto) APTT 61.2 H* 60.9 H* PTT Ratio 2.2 2.2 Sodium Potassium Chloride Carbon Dioxide Anion Gap BUN Creatinine Est Cr Clr Drug Dosing Est GFR ( Amer) Est GFR (Non-Af Amer) BUN/Creatinine Ratio Glucose Calcium Stool Occult Bld Scrn Stl C. diff Tox B Gene Stl C.difficile Tox A&B 09/29/20 09/29/20 09/29/20 07:31 07:31 11:25 WBC 6.70 RBC 2.65 L Hgb 8.1 L Hct 25.3 L MCV 95.5 MCH 30.6 MCHC 32.0 RDW Std Deviation 61.0 H RDW Coeff of Karla 17.8 H Plt Count 189 MPV 11.4 H Immature Gran % (Auto) 0.3 Neut % (Auto) 85.6 Lymph % (Auto) 7.9 Harding % (Auto) 4.9 Eos % (Auto) 1.2 Baso % (Auto) 0.1 Neut # (Auto) 5.73 Lymph # (Auto) 0.53 L Harding # (Auto) 0.33 Eos # (Auto) 0.08 Baso # (Auto) 0.01 Immature Gran # (Auto) 0.02 APTT PTT Ratio Sodium 141 Potassium 3.6 Chloride 110 H Carbon Dioxide 28 Anion Gap 3.0 BUN 38 H Creatinine 1.34 H Est Cr Clr Drug Dosing 43.7 Est GFR ( Amer) 45.4 Est GFR (Non-Af Amer) 39.2 BUN/Creatinine Ratio 28.3 H Glucose 75 Calcium 7.9 L Stool Occult Bld Scrn Stl C. diff Tox B Gene Positive Cdiff Gene H Stl C.difficile Tox A&B Negative Cdiff Toxin 09/29/20 09/29/20 11:25 12:49 WBC RBC Hgb 8.4 L Hct 26.5 L MCV MCH MCHC RDW Std Deviation RDW Coeff of Karla Plt Count MPV Immature Gran % (Auto) Neut % (Auto) Lymph % (Auto) [place] % (Auto) Eos % (Auto) Baso % (Auto) Neut # (Auto) Lymph # (Auto) Harding # (Auto) Eos # (Auto) Baso # (Auto) Immature Gran # (Auto) APTT PTT Ratio Sodium Potassium Chloride Carbon Dioxide Anion Gap BUN Creatinine Est Cr Clr Drug Dosing Est GFR ( Amer) Est GFR (Non-Af Amer) BUN/Creatinine Ratio Glucose Calcium Stool Occult Bld Scrn Negative Stl C. diff Tox B Gene Stl C.difficile Tox A&B
[2020-09-29] MEDS: DULoxetine HCL 20 MG CAP PO SCH (20:58)
[2020-09-29] MEDS: ATORVASTATIN 40 MG TAB PO SCH (20:59)
[2020-09-29] MEDS: HYDROCORTISONE ACETATE 25 MG SUPP PR SCH (21:01)
[2020-09-29] MEDS: HEPARIN SODIUM/DEXTROSE 25,000 UNITS/500 ML BAG IV SCH (23:18)
[2020-09-30] MEDS: DOXYCYCLINE HYCLATE 100 MG CAP PO SCH ×2 (00:04→12:03)
[2020-09-30] MEDS: oxyCODONE HCL IR 5 MG TAB (IMMEDIATE RELEASE) PO PRN ×3 (06:40→21:38)
[2020-09-30] MEDS: METOPROLOL SUCC 25MG EXT REL TAB PO SCH ×2 (07:39→21:35)
[2020-09-30] MEDS: PANTOprazole 40 MG in SYRINGE 0 ML IV SCH ×2 (07:39→21:33)
[2020-09-30] MEDS: busPIRone 5 MG TAB PO SCH ×3 (07:40→21:37)
[2020-09-30] MEDS: POTASSIUM CHLORIDE 10 MEQ TABCR PO SCH (07:40)
[2020-09-30] MEDS: CHOLECALCIFEROL 1,000 UNITS 25 MCG TAB PO SCH (07:40)
[2020-09-30] MEDS: MULTIVITAMIN CHEWABLE TAB PO SCH (07:41)
[2020-09-30] MEDS: buPROPion SR 100 MG TABCR PO SCH ×2 (07:41→13:04)
[2020-09-30] MEDS: ADVANCED PROBIOTIC 1250 MG CAPSULE PO SCH (07:41)
[2020-09-30] MEDS: allopurinoL 100 MG TAB PO SCH ×2 (07:41→21:34)
[2020-09-30] MEDS: CALCIUM 600MG + VIT D 400 IU TAB PO SCH ×2 (07:42→21:36)
[2020-09-30] MEDS: OXYBUTYNIN CHLORIDE 5 MG TAB PO SCH ×2 (07:42→21:37)
[2020-09-30] MEDS: bisacodyL 5 MG TABEC PO SCH (07:42)
[2020-09-30] MEDS: POLYETHYLENE (MIRALAX) 17 GM PACK PO SCH (07:46)
[2020-09-30] MEDS ORDERED: POLYETHYLENE (MIRALAX) 17 GM PACK PO SCH (09:00)
[2020-09-30 10:40] LABS: Partial Thromboplastin Ratio 0.9; Partial Thromboplastin Time 26.4 Seconds (21.0-31.0)
[2020-09-30 10:41] LABS: Basophils # (auto) 0.01 K/uL (0-0.2); Basophils % (auto) 0.2 %; Eosinophils # (auto) 0.12 K/uL (0-0.5); Eosinophils % (auto) 2.1 %; Hematocrit (blood only) 27.7 % (37-47); Hemoglobin 8.8 g/dL (12.0-16.0); Immature Granulocytes # (auto) 0.02 K/uL (0.00-0.02); Immature Granulocytes % (auto) 0.4 %; Lymphocytes # (auto) 0.73 K/uL (1.2-3.4); Lymphocytes % (auto) 12.8 %; Mean Corpuscular Hemoglobin 30.4 pg (25-34); Mean Corpuscular Hgb Conc 31.8 g/dL (32-36); Mean Corpuscular Volume 95.8 fL (80-100); Mean Platelet Volume 11.4 fL (7.4-10.4); Monocytes # (auto) 0.27 K/uL (0.11-0.59); Monocytes % (auto) 4.7 %; Neutrophils # (auto) 4.55 K/uL (1.4-6.5); Neutrophils % (auto) 79.8 %; Platelet Count 191 K/uL (130-400); RDW Coefficient of Variation 17.9 % (11.5-14.5); RDW Standard Deviation 62.3 fL (36.4-46.3); Red Blood Count 2.89 M/uL (4.2-5.4)
[2020-09-30 10:53] LABS: BUN Creatinine Ratio 28.3 (10-20); Calcium 7.5 mg/dl (8.5-10.1); Creatinine Clr Calc Pharmacy 52.6 ml/min; Est GFR (African American) 58.3; Est GFR (Non-African American) 50.3; Potassium 4.2 mmol/L (3.5-5.1)
[2020-09-30] MEDS ORDERED: FUROSEMIDE 40 MG in SYRINGE 0 ML IV STA (12:02)
[2020-09-30] MEDS ORDERED: CEFEPIME 2,000 MG in SYRINGE 0 ML IV STA (12:06)
--- NOTE | 2020-09-30 12:06 | Hospitalist Progress Note ---
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 coli sepsis secondary to obstructive uropathy/renal lithiasis requiring left ureteral stenting who presents to ED secondary to weakness x2 days. (1) Weakness: (2) Calculus, ureteral: Acute renal failure, on CKD stage III CT A/P: There are numerous obstructing calculi/Steinstrasse seen in the distal left ureter above the vesicoureteral junction. Fragments measure up to at least 5 mm, and this causes moderate left-sided hydroureteronephrosis. Status post cystoscopy with left ureteral stent placement Stable after procedure Creatinine improving from 1.8 now back to baseline Continue monitoring (3) Acute UTI: recent urine culture + e.coli Urine culture: Morganella and E. coli Position from Rocephin to cefepime day 4 of antibiotics out of 10 Follow-up urine and blood cultures (4) Cellulitis of left leg: wound culture: Pseudomonas Transition to cefepime (5) Hematochezia, possible lower GI bleed Colonoscopy January 12, 2020 reveals diverticulosis, internal hemorrhoids Hemoglobin 9.5, today stable at 8.8 Currently on heparin drip, will continue to monitor hemoglobin GI consulted, plan for colonoscopy on Friday as patient will need several days of prep, per GI Covid screen a day prior to colonoscopy complains of diarrhea daily x 1 month C. difficile gene positive, toxin negative (6) Chronic diastolic heart failure: (7) Aortic stenosis, severe: (8) Apical ballooning syndrome: Chronic diastolic CHF with apical ballooning syndrome on 06/2020 echo Severe calcific aortic stenosis -work up In progress --Patient showing signs of volume overload Lasix 40 mg IV now Resume p.o. Lasix when able ( takes 80mg fr, sa, sun and 60mg all other days) continue metoprolol (9) CKD (chronic kidney disease), stage III: Management per above (10) Anemia: Per admitting service notes H&H 9.5 and 29.6 today On 09/25/2020 H&H was 11.1 She does receive vitamin B12 injections in setting of history of gastric bypass Obtain FOBT Iron studies 07/27/2020 revealed ferritin 3476, iron 52, transferrin saturation 23, TIBC 230 Currently warfarin on hold in setting of upcoming procedure, postoperatively will place on heparin drip until determine GIB Last cspope 01/2020 showed sigmoid divertic, int hemorrhoids - on anusol --Will need iron supplement (11) Factor 5 Leiden mutation, heterozygous: History of recurrent DVT/PE, Wall filter in place Prior to admission was on Lovenox bridge, last dose a.m. of 09/26 for procedure on 09/27 Patient has no hematochezia today, hemoglobin stable continue heparin drip with close monitoring of hemoglobin and signs of GI bleeding (benefits of continuing heparin to prevent venous thromboembolism in this patient outweighs risk of minimal GI bleeding) When stable will resume Coumadin, per MTM recommendations are 8mg x 2 days and then resume normal dosing of 2 mg Friday and Friday and 4 mg all other days (12) Wheelchair dependence: Patient with chronic left prosthetic hip infection and is wheelchair dependent At baseline she is able to do self transfers PT and OT evaluation (13) NICOLASA on CPAP: CPAP at HS (14) DVT prophylaxis: hx of DVT/PE, on chronic Coumadin therapy Heparin drip Disposition: Lives with children at home Will need PT and OT evaluation Follow-up: PCP Dr. Shea upon discharge Plan of care discussed with patient in detail and at length All questions were answered She is understanding, agreeable, comfortable with plan of care Admission and Anticipated Discharge Date Admission Date: September 28, 2020 Subjective Follow-up for obstructive uropathy, status post ureteral stent placement, anemia, factor V [place] patient seen etc. Seen resting in bedside chair, sitting up, comfortable, not in distress States she feels fine overall except feeling very tired Denies abdominal pain, nausea vomiting Was having diarrhea overnight, resolved now No hematochezia this morning Denies chest pain, palpitations, shortness of breath, dizziness, headaches No other symptoms Review of Systems Review of Systems: All systems reviewed & are unremarkable except as noted in Subjective Physical Exam Physical Exam: General- oriented x 3, not in distress, speaks in sentences with no effort or accessory muscle use Eyes- anicteric Neck- no JVD Lungs-positive crackles bilateral bases, mild, no wheezing Heart- normal rate, regular rhythm; no murmurs Abdomen- normal bowel sounds, nondistended, soft, nontender Extremities-grade 1 lower extremity edema, positive small wound on the left anterior bella, with surrounding erythema/warmth, no calf tenderness left upper extremity edema and erythema improving Neuro- alert, oriented x 3; no gross focal neurologic deficits Skin- warm & dry Results & Data Results & Data ([facility]) Vital Signs (Past 12 Hours) Vital Signs Temp Pulse Pulse Resp BP Pulse Ox 09/30/20 11:12 36.5 C 80 20 138/81 96 09/30/20 08:00 36.5 C 61 58 L 20 110/58 L 98 09/30/20 02:46 36.8 C 81 20 107/74 96 09/30/20 00:16 67 09/30/20 00:12 112/75
[2020-09-30] MEDS ORDERED: Nursing to Pharmacy Communication SCH (12:45)
[2020-09-30] MEDS ORDERED: CONSULT PHARMACY PRN (12:58)
[2020-09-30 17:11] LABS: Partial Thromboplastin Ratio 2.3
[2020-09-30 17:12] LABS: Partial Thromboplastin Time 63.1 Seconds (21.0-31.0)
[2020-09-30] MEDS: ATORVASTATIN 40 MG TAB PO SCH (21:34)
[2020-09-30] MEDS: DULoxetine HCL 20 MG CAP PO SCH (21:34)
[2020-09-30] MEDS: HYDROCORTISONE ACETATE 25 MG SUPP PR SCH (21:37)
[2020-10-01] MEDS: buPROPion SR 100 MG TABCR PO SCH ×2 (06:21→13:25)
[2020-10-01] MEDS: ADVANCED PROBIOTIC 1250 MG CAPSULE PO SCH (06:21)
[2020-10-01] MEDS ORDERED: Nursing to Pharmacy Communication SCH (06:30)
[2020-10-01] MEDS: CHOLECALCIFEROL 1,000 UNITS 25 MCG TAB PO SCH (07:40)
[2020-10-01] MEDS: POTASSIUM CHLORIDE 10 MEQ TABCR PO SCH (07:40)
[2020-10-01] MEDS: OXYBUTYNIN CHLORIDE 5 MG TAB PO SCH ×2 (07:40→19:32)
[2020-10-01] MEDS: MULTIVITAMIN CHEWABLE TAB PO SCH (07:40)
[2020-10-01] MEDS: bisacodyL 5 MG TABEC PO SCH (07:40)
[2020-10-01] MEDS: PANTOprazole 40 MG in SYRINGE 0 ML IV SCH ×2 (07:41→19:32)
[2020-10-01] MEDS: busPIRone 5 MG TAB PO SCH ×3 (07:41→19:32)
[2020-10-01] MEDS: CALCIUM 600MG + VIT D 400 IU TAB PO SCH ×2 (07:41→19:31)
[2020-10-01] MEDS: METOPROLOL SUCC 25MG EXT REL TAB PO SCH ×2 (07:41→21:07)
[2020-10-01] MEDS: allopurinoL 100 MG TAB PO SCH ×2 (07:41→19:29)
[2020-10-01 07:43] LABS: Basophils # (auto) 0.01 K/uL (0-0.2); Basophils % (auto) 0.2 %; Eosinophils # (auto) 0.16 K/uL (0-0.5); Eosinophils % (auto) 3.2 %; Hematocrit (blood only) 26.1 % (37-47); Hemoglobin 8.2 g/dL (12.0-16.0); Immature Granulocytes # (auto) 0.01 K/uL (0.00-0.02); Immature Granulocytes % (auto) 0.2 %; Lymphocytes # (auto) 0.65 K/uL (1.2-3.4); Lymphocytes % (auto) 13.2 %; Mean Corpuscular Hemoglobin 30.3 pg (25-34); Mean Corpuscular Hgb Conc 31.4 g/dL (32-36); Mean Corpuscular Volume 96.3 fL (80-100); Mean Platelet Volume 10.6 fL (7.4-10.4); Monocytes % (auto) 6.1 %; Neutrophils % (auto) 77.1 %; Platelet Count 216 K/uL (130-400); RDW Coefficient of Variation 18.2 % (11.5-14.5); Red Blood Count 2.71 M/uL (4.2-5.4); White Blood Count 4.93 K/uL (4.8-10.8)
[2020-10-01] MEDS: POLYETHYLENE (MIRALAX) 17 GM PACK PO SCH (07:45)
[2020-10-01 08:05] LABS: Partial Thromboplastin Ratio 1.9
[2020-10-01 08:06] LABS: Partial Thromboplastin Time 53.5 Seconds (21.0-31.0)
[2020-10-01 08:11] LABS: Creatinine Clr Calc Pharmacy 52.2 ml/min; Est GFR (African American) 58.3; Est GFR (Non-African American) 50.3; Potassium 3.7 mmol/L (3.5-5.1)
[2020-10-01] MEDS: HEPARIN SODIUM/DEXTROSE 25,000 UNITS/500 ML BAG IV SCH (08:28)
[2020-10-01] MEDS ORDERED: FUROSEMIDE 40 MG in SYRINGE 0 ML IV ONE (09:00)
[2020-10-01] MEDS: ONDANSETRON INJ 2 MG/ML 2 ML VIAL IV PRN (09:23)
--- NOTE | 2020-10-01 10:26 | XRay Report ---
XR chest 1V portable CLINICAL HISTORY: right central line placement COMPARISON STUDY: 09/27/2020 FINDINGS: There is been interval placement of a right internal jugular central venous catheter. The t ip projects over the superior vena cava. No pneumothorax is visualized. The cardiac and mediastinal c ontours remain stable. There is no focal pulmonary consolidation. There are postsurgical changes of a reverse total left shoulder arthroplasty. Advanced arthritic changes are present within the right sh oulder.[There is a thoracic scoliosis. The apex of an IVC filter is visualized. IMPRESSION: 1. No evidence of pneumothorax status post placement of a right internal jugular central venous kerri ter. The tip projects over the superior vena cava ACT 112: Negative or not required by law. Electronically signed by: Brett Vila M.D. 10/01/2020 10:25 AM
--- NOTE | 2020-10-01 10:46 | Emergency Department Note ---
ED Visit Note I was asked to evaluate this patient who is currently on the floor receiving IV heparin as well as IV antibiotics for multiple infections. She has very poor IV access. Blood draw as well as IV medications have been difficult. The patient's had multiple peripheral IV sticks without good IV access obtained. I was asked by the admitting team to evaluate the patient for possible central line placement. Consent was obtained from the patient. She has had central lines before. The patient had a central line placed. Please see the procedure note. She tolerated the procedure well. The chest x-ray was reviewed. I advised nursing staff they were able to use the central line as usual at this time. Central Venous Catheter Indication: Need for IV medications, IV blood thinners, and blood draws. The patient is a very poor stick. Catheter type: Triple-lumen Location: Right internal jugular Verbal consent was obtained after the risks and benefits were explained, including but not limited to pneumothorax, hemothorax, vessel injury, bleeding, scarring, infection, pain, and bone/joint/nerve damage. At this time, the risks of the procedure are less than the risks of NOT performing the procedure. A time out was taken and the correct patient and site identified. The patient was placed in the position and the skin was prepped in the standard fashion with chlorhexidine and full sterile drapes applied. The proper landmarks were identified with ultrasound, anesthetized with 1% lidocaine without epinephrine, and the needle was inserted through the skin in the standard fashion. The needle was carefully advanced into blood vessel lumen under ultrasound guidance. The guidewire was placed uneventfully. The vessel is dilated and the catheter was placed. It was sutured into position. There was good blood return from all ports. The patient tolerated the procedure well and there were no complications. Post procedure x-ray was normal. Patient: RAHEEM POSADAS AAdmit Date: 09/28/20MR#: [id number]: [id number] [facility] ID:[id number]: Date: 1945[facility] Zip: [id number]: [id number]: 2NSex: FRoom/Bed: [address] Phy: Pablito Evans, MDDiagnosis: E. COLI UTI, CELLULITIS, Rectal BleedingPri Phy: Sadi Shea, DOService Date: 10/01/20Fam Phy:Interpreting Phy: Brett Vila MDAdmit Phy: Pablito Evans MD Ordering Phy: Louis Bowden DO cc: ~ XR chest 1V portable CLINICAL HISTORY: right central line placement COMPARISON STUDY: 09/27/2020 FINDINGS: There is been interval placement of a right internal jugular central venous catheter. The tip projects over the superior vena cava. No pneumothorax is visualized. The cardiac and mediastinal contours remain stable. There is no focal pulmonary consolidation. There are postsurgical changes of a reverse total left shoulder arthroplasty. Advanced arthritic changes are present within the right shoulder.[There is a thoracic scoliosis. The apex of an IVC filter is visualized. IMPRESSION: 1. No evidence of pneumothorax status post placement of a right internal jugular central venous catheter. The tip projects over the superior vena cava ACT 112: Negative or not required by law. Electronically signed by: Brett Vila M.D. 10/01/2020 10:25 AM Dictated: 10/01/20 1023Transcribed: 10/01/20 1023 . : GI bleed Qualifiers: GI bleed type/associated pathology: unspecified gastrointestinal hemorrhage type Qualified Code(s): K92.2 - Gastrointestinal hemorrhage, unspecified
[2020-10-01] MEDS: oxyCODONE HCL IR 5 MG TAB (IMMEDIATE RELEASE) PO PRN ×3 (11:15→21:07)
[2020-10-01] MEDS: CEFEPIME 2,000 MG in SYRINGE 0 ML IV SCH (11:16)
--- NOTE | 2020-10-01 13:46 | Hospitalist Progress Note ---
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 coli sepsis secondary to obstructive uropathy/renal lithiasis requiring left ureteral stenting who presents to ED secondary to weakness x2 days. (1) Weakness: (2) Calculus, ureteral: Acute renal failure, on CKD stage III CT A/P: There are numerous obstructing calculi/Steinstrasse seen in the distal left ureter above the vesicoureteral junction. Fragments measure up to at least 5 mm, and this causes moderate left-sided hydroureteronephrosis. Status post cystoscopy with left ureteral stent placement Stable after procedure Creatinine improved from 1.8 now back to baseline Continue monitoring ff up with Urologist (3) Acute UTI: recent urine culture + e.coli Urine culture: Morganella and E. coli Transitioned from Rocephin to cefepime (day 5 of antibiotics out of 10) clinically improving (4) Cellulitis of left leg: wound culture: Pseudomonas Transitioned to cefepime improving (5) Hematochezia, possible lower GI bleed Colonoscopy January 12, 2020 reveals diverticulosis, internal hemorrhoids Hemoglobin 9.5, today stable at 8.2 Currently on heparin drip, will continue to monitor hemoglobin GI consulted, plan for colonoscopy on Friday as patient will need several days of prep, per GI Covid screen a day prior to colonoscopy- Friday complains of diarrhea daily x 1 month C. difficile gene positive, toxin negative (6) Chronic diastolic heart failure: (7) Aortic stenosis, severe: (8) Apical ballooning syndrome: Chronic diastolic CHF with apical ballooning syndrome on 06/2020 echo Severe calcific aortic stenosis -work up In progress --Patient showing signs of volume overload Lasix 40 mg IV now usually on p.o. Lasix( takes 80mg fr, sa, sun and 60mg all other days) continue metoprolol (9) CKD (chronic kidney disease), stage III: Management per above (10) Anemia: Per admitting service notes H&H 9.5 and 29.6 today On 09/25/2020 H&H was 11.1 She does receive vitamin B12 injections in setting of history of gastric bypass Obtain FOBT Iron studies 07/27/2020 revealed ferritin 3476, iron 52, transferrin saturation 23, TIBC 230 Currently warfarin on hold in setting of upcoming procedure, postoperatively will place on heparin drip until determine GIB Last cspope 01/2020 showed sigmoid divertic, int hemorrhoids - on anusol --Will need iron supplement (11) Factor 5 Leiden mutation, heterozygous: History of recurrent DVT/PE, [place] filter in place Prior to admission was on Lovenox bridge, last dose a.m. of 09/26 for procedure on 09/27 Patient has no hematochezia today, hemoglobin stable overall continue heparin drip with close monitoring of hemoglobin and signs of GI bleeding (benefits of continuing heparin to prevent venous thromboembolism in this patient outweighs risk of minimal GI bleeding) When stable will resume Coumadin, per MTM recommendations are 8mg x 2 days and then resume normal dosing of 2 mg Friday and Friday and 4 mg all other days (12) Wheelchair dependence: Patient with chronic left prosthetic hip infection and is wheelchair dependent At baseline she is able to do self transfers PT and OT evaluation (13) NICOLASA on CPAP: CPAP at HS (14) DVT prophylaxis: hx of DVT/PE, on chronic Coumadin therapy Heparin drip Disposition: Lives with children at home Will need PT and OT evaluation Follow-up: PCP Dr. Shea upon discharge Plan of care discussed with patient in detail and at length All questions were answered She is understanding, agreeable, comfortable with plan of care Admission and Anticipated Discharge Date Admission Date: September 28, 2020 Subjective ff up for acute renal failure, obstructive uropathy, UTI, cellulitis, anemia, hematochezia, etc seen resting in bed, comfortable states she feels about the same as yesterday feels tired but ok having loose BMs, on bowel prep- no hematochezia no nausea/vomiting, fever/chills denies chest pain, dyspnea, dizziness no other symptoms Review of Systems Review of Systems: All systems reviewed & are unremarkable except as noted in Subjective Physical Exam Physical Exam: General- oriented x 3, not in distress, speaks in sentences with no effort or accessory muscle use Eyes- anicteric Neck- no JVD Lungs- clear breath sounds bilaterally, no rales/wheezes Heart- normal rate, regular rhythm; no murmurs Abdomen- normal bowel sounds, nondistended, soft, nontender Extremities- LUE edema, erythema- improving Left lower ext: moderate edema, (+) small wound healing well, surrounding erythema/warmth/tenderness improving RLE: essentially normal Neuro- alert, oriented x 3; no gross focal neurologic deficits Skin- warm & dry Results & Data Results & Data ([facility]) Vital Signs (Past 12 Hours) Vital Signs Temp Pulse Pulse Resp BP BP Pulse Ox 10/01/20 11:00 36.6 C 73 20 100/62 95 10/01/20 08:00 64 10/01/20 07:00 36.5 C 72 20 124/65 96 10/01/20 04:00 36.5 C 67 18 99/53 L 95
[2020-10-01] MEDS: ACETAMINOPHEN 325 MG TAB PO PRN (19:28)
[2020-10-01] MEDS: DULoxetine HCL 20 MG CAP PO SCH (19:30)
[2020-10-01] MEDS: ATORVASTATIN 40 MG TAB PO SCH (19:31)
[2020-10-01] MEDS: HYDROCORTISONE ACETATE 25 MG SUPP PR SCH (21:07)
--- NOTE | 2020-10-01 21:48 | Communication Note ---
Date of Service: October 01, 2020 Patient complaining of worsening back pain as well as IJ site pain radiating to her head AP Worsening back pain Rule out retroperitoneal bleed given ongoing IV anticoagulation for hypercoagulable state CT abdomen pelvis Hold IV heparin for now until CT results available. Patient currently has it done to go for study despite being told of rationale for imaging request and consequences of delayed bleeding diagnosis. Patient to reconsider decision depending on her comfort after augmented analgesic regimen. Will relay to AM provider.
[2020-10-01] MEDS ORDERED: MoRPHine SULFATE 4 MG/ML 1 ML CARP\\VIAL IV STA (21:50)
[2020-10-01] MEDS: MoRPHine SULFATE 4 MG/ML 1 ML CARP\\VIAL IV PRN (21:55)
[2020-10-01 22:49] LABS: Basophils # (auto) 0.02 K/uL (0-0.2); Basophils % (auto) 0.4 %; Eosinophils # (auto) 0.12 K/uL (0-0.5); Eosinophils % (auto) 2.3 %; Hematocrit (blood only) 26.2 % (37-47); Hemoglobin 8.2 g/dL (12.0-16.0); Immature Granulocytes # (auto) 0.02 K/uL (0.00-0.02); Immature Granulocytes % (auto) 0.4 %; Lymphocytes # (auto) 0.73 K/uL (1.2-3.4); Lymphocytes % (auto) 14.2 %; Mean Corpuscular Hemoglobin 30.1 pg (25-34); Mean Corpuscular Hgb Conc 31.3 g/dL (32-36); Mean Corpuscular Volume 96.3 fL (80-100); Mean Platelet Volume 10.5 fL (7.4-10.4); Monocytes % (auto) 7.8 %; Neutrophils # (auto) 3.86 K/uL (1.4-6.5); Neutrophils % (auto) 74.9 %; Platelet Count 217 K/uL (130-400); RDW Coefficient of Variation 18.2 % (11.5-14.5); Red Blood Count 2.72 M/uL (4.2-5.4); White Blood Count 5.15 K/uL (4.8-10.8)
[2020-10-02] MEDS: MoRPHine SULFATE 4 MG/ML 1 ML CARP\\VIAL IV PRN (05:35)
[2020-10-02] MEDS: ADVANCED PROBIOTIC 1250 MG CAPSULE PO SCH (05:39)
[2020-10-02 05:46] LABS: Basophils # (auto) 0.01 K/uL (0-0.2); Basophils % (auto) 0.2 %; Eosinophils # (auto) 0.12 K/uL (0-0.5); Eosinophils % (auto) 2.7 %; Hematocrit (blood only) 26.1 % (37-47); Hemoglobin 8.3 g/dL (12.0-16.0); Immature Granulocytes # (auto) 0.01 K/uL (0.00-0.02); Immature Granulocytes % (auto) 0.2 %; Lymphocytes # (auto) 0.73 K/uL (1.2-3.4); Lymphocytes % (auto) 16.3 %; Mean Corpuscular Hemoglobin 30.7 pg (25-34); Mean Corpuscular Hgb Conc 31.8 g/dL (32-36); Mean Corpuscular Volume 96.7 fL (80-100); Mean Platelet Volume 10.2 fL (7.4-10.4); Monocytes # (auto) 0.21 K/uL (0.11-0.59); Monocytes % (auto) 4.7 %; Neutrophils # (auto) 3.41 K/uL (1.4-6.5); Neutrophils % (auto) 75.9 %; Platelet Count 213 K/uL (130-400); RDW Coefficient of Variation 18.4 % (11.5-14.5); RDW Standard Deviation 63.5 fL (36.4-46.3); White Blood Count 4.49 K/uL (4.8-10.8)
[2020-10-02 05:56] LABS: Partial Thromboplastin Ratio 0.9; Partial Thromboplastin Time 25.8 Seconds (21.0-31.0)
[2020-10-02 06:12] LABS: BUN Creatinine Ratio 23.8 (10-20); Calcium 7.9 mg/dl (8.5-10.1); Creatinine Clr Calc Pharmacy 43.5 ml/min; Est GFR (African American) 46.7; Est GFR (Non-African American) 40.3; Potassium 3.9 mmol/L (3.5-5.1)
--- NOTE | 2020-10-02 07:58 | Operative Report (OR) ---
DATE OF OPERATION: 09/27/2020 PREOPERATIVE DIAGNOSES: Left distal ureteral calculi and possible urosepsis. POSTOPERATIVE DIAGNOSES: Left distal ureteral calculi and possible urosepsis. SURGEON: Chad Pabon MD. ANESTHESIA: Sedation. 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 A stent was placed. The patient recovered and subsequently had ureteroscopy with Dr. Sanchez who fragmented the stone into multiple fragments. It appeared that the fragments would be small enough to pass. He did remove multiple fragments and did have the dusting setting on as well. The patient seemed to be doing well. It was difficult to see any fragments and her stent was removed, and she subsequently had incidentally a steinstrasse with 4-5 stones 2-3 mm in her distal left ureter found on CT scan. She presented to the office, seemed to be doing well, was scheduled for removal of the stones electively, placed on Macrodantin b.i.d. as a prophylaxis and had a urine culture checked. She did have a positive culture, was switched to cefdinir incidentally at the hospital and on the day of the procedure, she had been feeling poorly for several days and presented to the Emergency Room instead of to the procedure for definitive surgery. She had a negative COVID test 2 days prior to the procedure. She was seen in the Emergency Room, had a KUB done, which did not definitely show the stone. They had great difficulty getting access to see what her blood count was. She also has had a repeat melena, which she had previously and had cellulitis in her left lower leg. It was unclear why she was feeling poorly, but my concern was given the fact that her urine appeared to still be infected and the fact that she had what appeared to be obstructing stones previously with some hydro that she might have urosepsis, so I elected to place a stent with sedation after a CT scan was performed confirming the distal stones and persistent hydronephrosis. DESCRIPTION OF THE PROCEDURE: The patient was taken to the cystoscopy suite after she was given preoperative antibiotics. She was given sedation, no Venodyne stockings were placed secondary to the severe cellulitis of her lower extremity. The scope was placed in the bladder. With some difficulty, through an open-ended catheter, a dual flex guidewire was passed beyond the stones in the proximal ureter and then the open-ended catheter with some force was passed over the guidewire into the proximal ureter. The stent was removed and contrast was placed in the upper tracts after the urine was sucked out and sent for culture. The dual flex guidewire was replaced through the open-ended catheter, which was removed coaxially and a 4.8 x 26 cm stent was passed over the guidewire without difficulty and left in place. The patient was then transferred to the recovery room in stable condition. I attest to the content of the Intraoperative Record and any orders documented therein. Any exception s are noted below.
[2020-10-02] MEDS: PANTOprazole 40 MG in SYRINGE 0 ML IV SCH ×2 (08:00→22:05)
[2020-10-02] MEDS: CALCIUM 600MG + VIT D 400 IU TAB PO SCH ×2 (08:00→22:11)
[2020-10-02] MEDS: CHOLECALCIFEROL 1,000 UNITS 25 MCG TAB PO SCH (08:00)
[2020-10-02] MEDS: POTASSIUM CHLORIDE 10 MEQ TABCR PO SCH (08:01)
[2020-10-02] MEDS: busPIRone 5 MG TAB PO SCH ×3 (08:01→22:11)
[2020-10-02] MEDS: METOPROLOL SUCC 25MG EXT REL TAB PO SCH ×2 (08:01→22:12)
[2020-10-02] MEDS: allopurinoL 100 MG TAB PO SCH ×2 (08:01→22:10)
[2020-10-02] MEDS: buPROPion SR 100 MG TABCR PO SCH ×2 (08:01→12:39)
[2020-10-02] MEDS: MULTIVITAMIN CHEWABLE TAB PO SCH (08:02)
[2020-10-02] MEDS: OXYBUTYNIN CHLORIDE 5 MG TAB PO SCH ×2 (08:03→22:11)
[2020-10-02] MEDS ORDERED: bisacodyL 5 MG TABEC PO ONE (09:00)
[2020-10-02] MEDS ORDERED: POLYETHYLENE (MIRALAX) 17 GM PACK PO ONE ×2 (09:00→16:30)
[2020-10-02] MEDS ORDERED: POLYETHYLENE (MIRALAX) 17 GM PACK PO PRN (09:22)
[2020-10-02] MEDS ORDERED: CEFEPIME CONSULT ACTIVE PRN (09:32)
--- NOTE | 2020-10-02 09:47 | CT Scan Report ---
CT head/brain wo con CLINICAL HISTORY: 74 years-old Female with headache, r/o bleed. Acute headache TECHNIQUE: Multiple axial CT images of the head were obtained without contrast. A dose lowering tech nique was utilized adhering to the principles of ALARA. CT DOSE: 690.05 mGycm COMPARISON: None. FINDINGS: No acute intracranial hemorrhage, midline shift, intracranial mass, hydrocephalus, territorial ischem ia or abnormal extra-axial collection. Age-related involutional changes. Confluent white matter hypod ensities suggest chronic microvascular ischemic disease. Hypodensities of the left lentiform nucleus measure up to 6 mm. Cerebral vascular calcifications. Linear calcifications of the left thalamus also noted. The calvarium is intact. Mastoid air cells are clear. Minimal polypoid mucosal thickening of the max illary sinuses. Soft tissues and orbits are unremarkable. IMPRESSION: 1. No acute intracranial hemorrhage or acute territorial infarct. 2. Age-related involutional changes with chronic microvascular ischemic disease. 3. Age-indeterminate likely chronic subcentimeter lacunar infarct of the left lentiform nucleus. ACT 112: Negative or not required by law. The above report was generated using voice recognition software. It may contain grammatical, syntax o r spelling errors. Electronically signed by: Ezequiel Denise M.D. 10/02/2020 9:46 AM
--- NOTE | 2020-10-02 09:55 | CT Scan Report ---
CT SCAN OF THE ABDOMEN AND PELVIS WITHOUT CONTRAST CLINICAL HISTORY: Diffuse abdominal and back pain. Evaluate for retroperitoneal hemorrhage. COMPARISON STUDY: 09/27/2020 TECHNIQUE: CT scan of the abdomen and pelvis was performed from the lung bases to the proximal femurs . Images are reviewed in the axial, sagittal, and coronal planes. IV contrast was not administered fo r this examination. A dose lowering technique was utilized adhering to the principles of ALARA. CT DOSE: 932.38 mGycm FINDINGS: Lower chest: There are small bilateral pleural effusions with basilar atelectatic changes. There is n ew right lower lobe tree-in-bud nodularity suggestive of a infectious process. There is a hiatal jose ia Liver: The unenhanced liver is normal in size, contour, and attenuation. There is no intrahepatic jayda iary ductal dilatation. Gallbladder: Mildly distended. No calculi are visualized. Spleen: There is a stable 12 mm splenic hypodensity. Pancreas: Unremarkable. Adrenal glands: There is bilateral low density adrenal gland thickening suggestive of adenomatous hyp erplasia Kidneys: There are nonobstructing left renal calculi. There are low-density left renal lesions likely representing cysts. There is mild fullness of the left renal collecting system and left ureter. Ther e is an indwelling double pigtail left sided nephroureteral stent. There is a tiny distal left ureter al calculus. No right ureteral calculi are visualized Bowel: There are no transition zones to indicate bowel obstruction. There is stool and fluid within t he colon. Postsurgical changes involve the sigmoid colon. There is mild nonspecific rectosigmoid wall thickening. Peritoneum: There is no intraperitoneal free air or abdominal ascites. There are postsurgical changes of a prior mesh hernia repair. There is no evidence of retroperitoneal hemorrhage. Vasculature: There is no evidence of abdominal aortic aneurysm. There is an indwelling vena cava filt er. Adenopathy: None. Pelvic viscera: There is a joint Ramírez catheter. There is gas in the bladder likely iatrogenic. The p shira is partially obscured due to beam hardening artifact from a right hip arthroplasty Skeletal structures: There is marked left psoas and left hip muscular atrophy. There is chronic sublu xation destructive changes involving the left proximal femur. There is a left hip joint effusion. IMPRESSION: 1. No evidence of bowel obstruction. No evidence of free air 2. No evidence of retroperitoneal hemorrhage 3. Small bilateral pleural effusions and basilar atelectasis. In addition there are new tree-in-bud o pacities within the right lower lobe, likely infectious 4. Left-sided nephrolithiasis. Indwelling double pigtail left sided nephroureteral stent 5. Tiny distal left ureteral calculus. Decreased ureteral stone burden as compared with the prior antonio dy 6. Chronic destructive changes involving the left hip with a chronic dislocation. ACT 112: Negative or not required by law. Electronically signed by: Brett Vila M.D. 10/02/2020 9:54 AM
[2020-10-02] MEDS ORDERED: HEPARIN IV BOLUS 4,500 UNITS in SYRINGE 0 ML IV ONE (10:04)
[2020-10-02] MEDS: HEPARIN SODIUM/DEXTROSE 25,000 UNITS/500 ML BAG IV SCH (10:37)
[2020-10-02] MEDS: CEFEPIME 2,000 MG in SYRINGE 0 ML IV SCH (11:27)
[2020-10-02] MEDS: oxyCODONE HCL IR 5 MG TAB (IMMEDIATE RELEASE) PO PRN ×2 (13:58→20:25)
[2020-10-02] MEDS: ONDANSETRON INJ 2 MG/ML 2 ML VIAL IV PRN ×2 (16:31→22:06)
[2020-10-02 17:21] LABS: Partial Thromboplastin Ratio 4.6
[2020-10-02 17:36] LABS: Partial Thromboplastin Time 127.9 Seconds (21.0-31.0)
--- NOTE | 2020-10-02 20:43 | Hospitalist Progress Note ---
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 coli sepsis secondary to obstructive uropathy/renal lithiasis requiring left ureteral stenting who presents to ED secondary to weakness x2 days. (1) Weakness: (2) Calculus, ureteral: Acute renal failure, on CKD stage III CT A/P: There are numerous obstructing calculi/Steinstrasse seen in the distal left ureter above the vesicoureteral junction. Fragments measure up to at least 5 mm, and this causes moderate left-sided hydroureteronephrosis. Status post cystoscopy with left ureteral stent placement Stable after procedure Creatinine improved from 1.8, back to baseline, but today creatinine is elevated Continue monitoring ff up with Urologist (3) Acute UTI: recent urine culture + e.coli Urine culture: Morganella and E. coli Transitioned from Rocephin to cefepime (day 6 of antibiotics out of 10) clinically improving (4) Cellulitis of left leg: wound culture: Pseudomonas Transitioned to cefepime improving (5) Hematochezia, possible lower GI bleed Colonoscopy January 12, 2020 reveals diverticulosis, internal hemorrhoids Hemoglobin 9.5, today stable at 8.3 Currently on heparin drip, will continue to monitor hemoglobin GI consulted, plan for colonoscopy tomorrow Covid screen ordered Heparin drip to be stopped at 1 AM complains of diarrhea daily x 1 month C. difficile gene positive, toxin negative (6) Chronic diastolic heart failure: (7) Aortic stenosis, severe: (8) Apical ballooning syndrome: Chronic diastolic CHF with apical ballooning syndrome on 06/2020 echo Severe calcific aortic stenosis -work up In progress --Creatinine increased to 1.3 Hold Lasix for now usually on p.o. Lasix( takes 80mg fr, sa, sun and 60mg all other days) continue metoprolol (9) CKD (chronic kidney disease), stage III: Management per above (10) Anemia: Per admitting service notes H&H 9.5 and 29.6 today On 09/25/2020 H&H was 11.1 She does receive vitamin B12 injections in setting of history of gastric bypass Obtain FOBT Iron studies 07/27/2020 revealed ferritin 3476, iron 52, transferrin saturation 23, TIBC 230 Currently warfarin on hold in setting of upcoming procedure, postoperatively will place on heparin drip until determine GIB Last cspope 01/2020 showed sigmoid divertic, int hemorrhoids - on anusol --Will need iron supplement (11) Factor 5 Leiden mutation, heterozygous: History of recurrent DVT/PE, [place] filter in place Prior to admission was on Lovenox bridge, last dose a.m. of 09/26 for procedure on 09/27 Patient has no hematochezia today, hemoglobin stable overall continue heparin drip with close monitoring of hemoglobin and signs of GI bleeding (benefits of continuing heparin to prevent venous thromboembolism in this patient outweighs risk of minimal GI bleeding) When stable will resume Coumadin, per MTM recommendations are 8mg x 2 days and then resume normal dosing of 2 mg Friday and Friday and 4 mg all other days --Heparin drip to be discontinued at 1 AM for colonoscopy tomorrow CT head and abdomen: No hemorrhage (12) Wheelchair dependence: Patient with chronic left prosthetic hip infection and is wheelchair dependent At baseline she is able to do self transfers PT and OT evaluation (13) NICOLASA on CPAP: CPAP at (14) DVT prophylaxis: hx of DVT/PE, on chronic Coumadin therapy Heparin drip Disposition: Lives with children at home Will need PT and OT evaluation Follow-up: PCP Dr. Shea upon discharge Plan of care discussed with patient in detail and at length All questions were answered She is understanding, agreeable, comfortable with plan of care Admission and Anticipated Discharge Date Admission Date: September 28, 2020 Subjective Follow-up for obstructive uropathy, status post ureteral stent placement, rectal bleeding, history of factor V deficiency next Seen resting in bed, comfortable, not in distress Reports lower back pain, new, started last night, worse with movement Also reports some discomfort on the central line site radiating to the right side of the head Denies focal neurologic symptoms No shortness of breath, chest pain, abdominal pain No hematochezia Denies other symptoms Review of Systems Review of Systems: All systems reviewed & are unremarkable except as noted in Subjective Physical Exam Physical Exam: General- oriented x 3, not in distress, speaks in sentences with no effort or accessory muscle use Eyes- anicteric Neck- no JVD Central line site: No erythema/hematoma/edema/tenderness Lungs- clear BS bilaterally, no crackles or wheezing Heart- normal rate, regular rhythm; no murmurs Abdomen- normal bowel sounds, nondistended, soft, nontender Extremities-mild edema of the upper extremities Left lower extremity: Small wound to the anterior bella, healing, less erythema/warmth/tenderness Right lower extremity: Essentially normal Neuro- alert, oriented x 3; no gross focal neurologic deficits Skin- warm & dry Results & Data Results & Data ([facility]) Vital Signs (Past 12 Hours) Vital Signs Temp Pulse Pulse Resp BP Pulse Ox 10/02/20 19:01 36.7 C 76 16 107/58 L 99 10/02/20 16:00 72 10/02/20 11:35 36.9 C 70 16 112/65 95
[2020-10-02] MEDS: HYDROCORTISONE ACETATE 25 MG SUPP PR SCH (22:12)
[2020-10-02] MEDS: DULoxetine HCL 20 MG CAP PO SCH (22:12)
[2020-10-02] MEDS: ATORVASTATIN 40 MG TAB PO SCH (22:12)
[2020-10-03] MEDS: MoRPHine SULFATE 4 MG/ML 1 ML CARP\\VIAL IV PRN (03:45)
[2020-10-03] MEDS: ADVANCED PROBIOTIC 1250 MG CAPSULE PO SCH (05:05)
[2020-10-03 06:04] LABS: Basophils # (auto) 0.01 K/uL (0-0.2); Basophils % (auto) 0.2 %; Eosinophils # (auto) 0.13 K/uL (0-0.5); Eosinophils % (auto) 2.9 %; Hematocrit (blood only) 25.3 % (37-47); Hemoglobin 7.9 g/dL (12.0-16.0); Immature Granulocytes # (auto) 0.01 K/uL (0.00-0.02); Immature Granulocytes % (auto) 0.2 %; Lymphocytes # (auto) 0.59 K/uL (1.2-3.4); Lymphocytes % (auto) 13.4 %; Mean Corpuscular Hemoglobin 30.3 pg (25-34); Mean Corpuscular Hgb Conc 31.2 g/dL (32-36); Mean Corpuscular Volume 96.9 fL (80-100); Mean Platelet Volume 9.8 fL (7.4-10.4); Monocytes # (auto) 0.27 K/uL (0.11-0.59); Monocytes % (auto) 6.1 %; Neutrophils % (auto) 77.2 %; Platelet Count 190 K/uL (130-400); RDW Coefficient of Variation 18.2 % (11.5-14.5); RDW Standard Deviation 64.2 fL (36.4-46.3); Red Blood Count 2.61 M/uL (4.2-5.4); White Blood Count 4.41 K/uL (4.8-10.8)
[2020-10-03 06:14] LABS: Partial Thromboplastin Ratio 0.9; Partial Thromboplastin Time 26.5 Seconds (21.0-31.0)
[2020-10-03 06:27] LABS: RBC Morphology Unremarkable
[2020-10-03 06:33] LABS: BUN Creatinine Ratio 25.6 (10-20); Creatinine Clr Calc Pharmacy 52.8 ml/min; Est GFR (Non-African American) 50.9; Potassium 3.8 mmol/L (3.5-5.1)
[2020-10-03] MEDS: PANTOprazole 40 MG in SYRINGE 0 ML IV SCH ×2 (08:40→20:09)
[2020-10-03] MEDS: CALCIUM 600MG + VIT D 400 IU TAB PO SCH ×2 (08:44→20:09)
[2020-10-03] MEDS: buPROPion SR 100 MG TABCR PO SCH ×2 (08:44→12:50)
[2020-10-03] MEDS: busPIRone 5 MG TAB PO SCH ×3 (08:44→20:10)
[2020-10-03] MEDS: OXYBUTYNIN CHLORIDE 5 MG TAB PO SCH ×3 (11:51→20:09)
[2020-10-03] MEDS: CHOLECALCIFEROL 1,000 UNITS 25 MCG TAB PO SCH (11:52)
[2020-10-03] MEDS: allopurinoL 100 MG TAB PO SCH ×3 (11:52→20:09)
[2020-10-03] MEDS: MULTIVITAMIN CHEWABLE TAB PO SCH (11:52)
[2020-10-03] MEDS: CEFEPIME 2,000 MG in SYRINGE 0 ML IV SCH (12:00)
[2020-10-03] MEDS ORDERED: bisacodyL 5 MG TABEC PO ONE (12:26)
--- NOTE | 2020-10-03 12:27 | Communication Note ---
Date of Service: October 03, 2020 Patient arrived in endoscopy. Bms still with particulate matter and not clear. Repeat prep and plan for colonoscopy tomorrow. Clears today. NPO except for prep after midnight.
[2020-10-03] MEDS: POTASSIUM CHLORIDE 10 MEQ TABCR PO SCH (12:49)
[2020-10-03] MEDS: ONDANSETRON INJ 2 MG/ML 2 ML VIAL IV PRN (12:52)
[2020-10-03] MEDS: METOPROLOL SUCC 25MG EXT REL TAB PO SCH ×2 (12:52→20:09)
[2020-10-03] MEDS ORDERED: POLYETHYLENE (MIRALAX) 17 GM PACK PO ONE (13:00)
[2020-10-03] MEDS ORDERED: HEPARIN IV BOLUS 4,500 UNITS in SYRINGE 0 ML IV ONE (15:30)
[2020-10-03] MEDS: HEPARIN SODIUM/DEXTROSE 25,000 UNITS/500 ML BAG IV SCH (15:41)
[2020-10-03] MEDS: DULoxetine HCL 20 MG CAP PO SCH (20:09)
[2020-10-03] MEDS: ATORVASTATIN 40 MG TAB PO SCH (20:09)
[2020-10-03] MEDS: oxyCODONE HCL IR 5 MG TAB (IMMEDIATE RELEASE) PO PRN (21:13)
--- NOTE | 2020-10-03 21:44 | Hospitalist Progress Note ---
Date of Service delayed entry date of service noted below October 03, 2020 Assessment & Plan (1) Calculus, ureteral: (1) Calculus, ureteral: Per admitting service notes: This is a 74-year-old female who has significant past medical history of chronic diastolic CHF, severe calcific aortic valve stenosis, apical ballooning LV dysfunction, history of ocular CVA, HTN, HLD, factor V Leiden mutation with history of DVT/PE and [place] filter in place on chronic Coumadin therapy, carotid artery stenosis, history of diabetes mellitus, HLD, chronic left hip prosthetic joint infection status post excisional debridement and permanent nonunion wheelchair-bound, NICOLASA on CPAP, DUNIA, gout, history of uterine cancer, hypoalbuminemia, history of E. coli sepsis secondary to obstructive uropathy/renal lithiasis requiring left ureteral stenting who presents to ED secondary to weakness x2 days. (1) Weakness: (2) Calculus, ureteral: Acute renal failure, on CKD stage III CT A/P: There are numerous obstructing calculi/Steinstrasse seen in the distal left ureter above the vesicoureteral junction. Fragments measure up to at least 5 mm, and this causes moderate left-sided hydroureteronephrosis. Status post cystoscopy with left ureteral stent placement Stable after procedure Creatinine improved from 1.8, back to baseline Continue monitoring ff up with Urologist (3) Acute UTI: recent urine culture + e.coli Urine culture: Morganella and E. coli Transitioned from Rocephin to cefepime (day 7 of antibiotics out of 10) clinically improving (4) Infected Wound, Cellulitis of left leg: wound culture: Pseudomonas Transitioned to cefepime Day 7/10 improving (5) Hematochezia, possible lower GI bleed Colonoscopy January 12, 2020 reveals diverticulosis, internal hemorrhoids Hemoglobin 9.5--> decreased but remained stable around 8 Currently on heparin drip (for Factor V Leiden Deficiency), continue to monitor hemoglobin GI consulted, plan for colonoscopy tomorrow Heparin drip to be stopped at 1 AM complains of diarrhea daily x 1 month C. difficile gene positive, toxin negative (6) Chronic diastolic heart failure: (7) Aortic stenosis, severe: (8) Apical ballooning syndrome: Chronic diastolic CHF with apical ballooning syndrome on 06/2020 echo Severe calcific aortic stenosis -work up In progress -- Lasix held for elevated crea 1.3, likely due to dehydration from bowel prep crea now back to baseline HOLD Lasix as patient seems to be euvolemic, still having bowel prep monitor volume status closely, patient easily develops crackles and leg edema usually on p.o. Lasix( takes 80mg fr, sa, sun and 60mg all other days) (9) CKD (chronic kidney disease), stage III: Management per above (10) Anemia: Per admitting service notes H&H 9.5 and 29.6 today On 09/25/2020 H&H was 11.1 She does receive vitamin B12 injections in setting of history of gastric bypass Obtain FOBT Iron studies 07/27/2020 revealed ferritin 3476, iron 52, transferrin saturation 23, TIBC 230 Currently warfarin on hold in setting of upcoming procedure, postoperatively will place on heparin drip until determine GIB Last cspope 01/2020 showed sigmoid divertic, int hemorrhoids - on anusol --Will need iron supplement (11) Factor 5 Leiden mutation, heterozygous: History of recurrent DVT/PE, [place] filter in place Prior to admission was on Lovenox bridge, last dose a.m. of 09/26 for procedure on 09/27 Patient has no hematochezia today, hemoglobin stable overall continue heparin drip with close monitoring of hemoglobin and signs of GI bleeding (benefits of continuing heparin to prevent venous thromboembolism in this patient outweighs risk of minimal GI bleeding) When stable will resume Coumadin, per MTM recommendations are 8mg x 2 days and then resume normal dosing of 2 mg Friday and Friday and 4 mg all other days --Heparin drip to be discontinued at 1 AM for colonoscopy tomorrow CT head and abdomen: No hemorrhage (12) Wheelchair dependence: Patient with chronic left prosthetic hip infection and is wheelchair dependent At baseline she is able to do self transfers PT and OT evaluation (13) NICOLASA on CPAP: CPAP at HS (14) DVT prophylaxis: hx of DVT/PE, on chronic Coumadin therapy Heparin drip Disposition: Lives with children at home Will need PT and OT evaluation Patient prefers to go home with home health services Follow-up: PCP Dr. Shea upon discharge Plan of care discussed with patient in detail and at length All questions were answered She is understanding, agreeable, comfortable with plan of care Admission and Anticipated Discharge Date Admission Date: September 28, 2020 Subjective ff up for obstructive uropathy, rectal bleeding, etc seen resting in bed, comfortable, not in distress states she feels ok denies abdominal pain, nausea/vomiting, hematochezia no chest pain, dyspnea, palpitations, dizziness no other symptoms Review of Systems Review of Systems: All systems reviewed & are unremarkable except as noted in Subjective Physical Exam Physical Exam: General- oriented x 3, not in distress, speaks in sentences with no effort or accessory muscle use Eyes- anicteric Neck- no JVD Lungs- clear breath sounds bilaterally, no rales/wheezes Heart- normal rate, regular rhythm; no murmurs Abdomen- normal bowel sounds, nondistended, soft, nontender Extremities- UE edema: improving LLE: small wound healing well, surrounding erythema/edema/warmth almost resolved no calf tenderness RLE: essentially masood Neuro- alert, oriented x 3; no gross focal neurologic deficits Skin- warm & dry Results & Data Results & Data ([facility]) Vital Signs (Past 12 Hours) Vital Signs Temp Pulse Resp BP BP Pulse Ox 10/03/20 20:00 36.5 C 73 18 108/75 99 10/03/20 15:51 36.6 C 84 20 107/57 L 100 10/03/20 11:34 36.7 C 68 18 120/71 92 Laboratory Results noted and reviewed
[2020-10-03] MEDS: HYDROCORTISONE ACETATE 25 MG SUPP PR SCH (22:19)
[2020-10-03 22:45] LABS: Partial Thromboplastin Ratio 2.8
[2020-10-03 22:48] LABS: Partial Thromboplastin Time 78.5 Seconds (21.0-31.0)
[2020-10-04] MEDS: ADVANCED PROBIOTIC 1250 MG CAPSULE PO SCH (06:15)
[2020-10-04] MEDS: buPROPion SR 100 MG TABCR PO SCH ×2 (06:15→13:10)
[2020-10-04] MEDS ORDERED: MIDAZOLAM HCL 1 MG/ML 2ML VIAL ONE (08:31)
[2020-10-04] MEDS ORDERED: LIDOCAINE HCL 2% 2 ML VIAL/AMP(20MG/ML) INFIL ONE (08:40)
[2020-10-04] MEDS ORDERED: PROPOFOL IV EMULSION 10 MG/ML 20 ML VIAL IV ONE (08:40)
[2020-10-04] MEDS ORDERED: ONDANSETRON INJ 2 MG/ML 2 ML VIAL ONE (08:42)
--- NOTE | 2020-10-04 08:44 | Anesthesiology Consultation ---
Date of Service October 04, 2020 Assessment & Plan Chart Review Chart Review: Acceptable Risk for Surgery and Patient NOT seen in Pre Admission Testing Consults Requested none ASA ASA4 Proposed Anesthesia Anesthesia Type: MAC Risk / Benefits Reviewed With: PT / POA / Parent / Guardian, Accepts Plan and Informed Consent Obtained Additional Comments: covid test negative History Surgery Operation Date: 09/27/20 14:00 Proposed Procedures p Cystoscopy Stent - Chad Pabon MD Operation Date: 09/29/20 15:30 Proposed Procedures p Colonoscopy Dr Jose Garcia DO Operation Date: 10/04/20 10:45 Proposed Procedures p Colonoscopy Dr Vicente - Amanda Vicente, DO Height/Weight Height: 5 ft 6 in Weight: 90.2 kg Allergies Allergy/AdvReac Type Severity Reaction Status Date / Time adhesive Allergy Intermediate BLISTERS Verified 09/27/20 07:42 WITH STERI-STRIPS Iodinated Contrast Media Allergy Intermediate hive Verified 09/27/20 07:42 [Iodinated Contrast- Oral and IV Dye] naproxen Allergy Intermediate SWELLING - Verified 09/27/20 07:42 TOLERATES ESTEVES-[address] HALL ciprofloxacin Allergy Mild RASH Verified 09/27/20 07:42 Quinolones Allergy Mild NEUROLOGIC Verified 09/27/20 07:42 SYMPTOMS Medications Home Medications Medication Instructions Recorded Confirmed Last Taken allopurinol 100 mg PO BID 06/23/19 09/27/20 09/26/20 ascorbic acid (vitamin C) [Vitamin 250 mg PO BID 06/23/19 09/27/20 07/19/20 19:30 C] buspirone 5 mg PO TID 06/23/19 09/27/20 09/27/20 cyanocobalamin (vitamin B-12) 1,000 mcg IM UD 06/23/19 09/27/20 06/23/20 duloxetine [Cymbalta] 40 mg PO HS 06/23/19 09/27/20 09/26/20 ondansetron 4 mg PO Q8H PRN 06/23/19 09/27/20 Unknown oxycodone [Roxicodone] 5 mg PO Q4 PRN 06/23/19 09/27/20 07/19/20 19:30 Flintstones Complete 1 tab PO QAM 08/27/19 09/27/20 09/26/20 atorvastatin 40 mg PO PM 12/31/19 09/27/20 09/26/20 bupropion HCl [Wellbutrin SR] 200 mg PO BID 12/31/19 09/27/20 09/27/20 calcium carbonate [Tums Extra 750 mg PO UD PRN 12/31/19 09/27/20 Unknown Strength Smoothies] calcium carbonate-vitamin D3 1 cap PO BID 12/31/19 09/27/20 09/26/20 [Calcium 600 with Vitamin D3] cholecalciferol (vitamin D3) 2,000 unit PO QAM 12/31/19 09/27/20 07/19/20 07:00 [Vitamin D3] nystatin 1 appln TOP BID PRN 12/31/19 09/27/20 Unknown omeprazole 20 mg PO QAM 12/31/19 09/27/20 09/26/20 oxybutynin chloride 5 mg PO BID 12/31/19 09/27/20 09/26/20 Probiotic 3,000 mmu cells PO QAM 06/21/20 09/27/20 09/26/20 potassium chloride [K-Tab] 10 meq PO QAM 06/21/20 09/27/20 09/26/20 warfarin 4 mg PO SUMOWETHSA 06/21/20 09/27/20 07/13/20 19:00 warfarin 2 mg PO TUFR 08/01/20 09/27/20 Unknown hydrocortisone acetate [Anusol-HC] 25 mg [place] HS #24 ea 08/03/20 09/27/20 09/26/20 cefdinir 300 mg PO BID 10 Days #19 cap 09/20/20 09/27/20 09/26/20 enoxaparin [Lovenox] 80 mg SUBCUT Q12H 09/25/20 09/27/20 09/26/20 furosemide 20 mg PO SUFRSA 09/25/20 09/27/20 09/26/20 furosemide [Lasix] 40 mg PO QAM 09/25/20 09/27/20 09/26/20 metoprolol succinate 12.5 mg PO BID 09/25/20 09/27/20 09/27/20 furosemide 40 mg PO MOTUWETH 09/27/20 09/27/20 Unknown Active Medications Generic Name Dose Route Start Last Admin Trade Name Freq PRN Reason Stop Dose Admin Acetaminophen 650 mg 09/27/20 16:24 10/01/20 19:28 Acetaminophen 325 Mg Tab PO 10/27/20 16:23 650 mg Q4H PRN Administration Pain or Fever Allopurinol 100 mg 09/27/20 21:00 10/03/20 20:09 Allopurinol 100 Mg Tab PO 10/27/20 20:59 100 mg BID NAY Administration Atorvastatin Calcium 40 mg 09/27/20 21:00 10/03/20 20:09 Atorvastatin 40 Mg Tab PO 10/27/20 20:59 40 mg PM NAY Administration Bupropion HCl 200 mg 09/27/20 17:00 10/04/20 06:15 Bupropion Sr 100 Mg Tabcr PO 10/27/20 16:59 Not Given BID@0700,1300 NAY Buspirone HCl 5 mg 09/27/20 17:00 10/03/20 20:10 Buspirone 5 Mg Tab PO 10/27/20 16:59 5 mg TID NAY Administration Duloxetine HCl 40 mg 09/27/20 21:00 10/03/20 20:09 Duloxetine Hcl 20 Mg Cap PO 10/27/20 20:59 40 mg HS NAY Administration Heparin Sodium (Beef Lung) 5 ml 10/01/20 22:32 10/03/20 18:15 Heparin 10 Unit/Ml 5 Ml Flush FLUSH 10/31/20 22:31 15 ml PRN PRN Administration Flush Hydrocortisone 25 mg 09/27/20 21:00 10/03/20 22:19 Hydrocortisone Acetate 25 Mg Supp OR 10/27/20 20:59 25 mg HS NAY Administration Heparin Sodium/Dextrose 25,000 units in 500 mls @ 0 mls/hr 09/27/20 17:15 10/04/20 01:06 Heparin Sodium/Dextrose IV 10/27/20 17:14 0 units/hr .Q0M NAY 0 mls/hr Titration Protocol 0 UNITS/HR Pantoprazole Sodium 40 mg/ 10 mls @ 5 mls/min 09/28/20 21:00 10/03/20 20:09 Syringe IV 10/28/20 20:59 5 mls/min BID NAY Administration Cefepime HCl 2,000 mg/ Syringe 20 mls @ 5 mls/min 10/01/20 12:00 10/03/20 12:00 IV 10/07/20 11:59 5 mls/min Q24H NAY Administration Protocol Lactobacillus Acidoph/Casei/Rhamnos 2 cap 10/02/20 06:00 10/04/20 06:15 Advanced Probiotic 1250 Mg Capsule PO 11/01/20 05:59 Not Given DAILY@0600 NAY Metoprolol Succinate 12.5 mg 09/27/20 21:00 10/03/20 20:09 Metoprolol Succ 25mg Ext Rel Tab PO 10/27/20 20:59 12.5 mg BID NAY Administration Morphine Sulfate 4 mg 10/01/20 21:16 10/03/20 03:45 Morphine Sulfate 4 Mg/Ml 1 Ml Carp\\Vial IV 10/15/20 21:15 4 mg Q4H PRN Administration Pain Multivitamins/Folic Acid/Vitamin C 1 tab 09/28/20 09:00 10/03/20 11:52 Multivitamin Chewable Tab PO 10/28/20 08:59 [facility] [place] [facility] [place]iv[place]/Minerals 1 tab 09/27/20 21:00 10/03/20 20:09 Calcium 600mg + Vit D 400 Iu Tab PO 10/27/20 20:59 1 tab BID NAY Administration Ondansetron HCl 4 mg 09/27/20 16:24 10/03/20 12:52 Ondansetron Inj 2 Mg/Ml 2 Ml Vial IV 10/27/20 16:23 4 mg Q6H PRN Administration Nausea Oxybutynin Chloride 5 mg 09/27/20 21:00 10/03/20 20:09 Oxybutynin Chloride 5 Mg Tab PO 10/27/20 20:59 5 mg BID NAY Administration Oxycodone HCl 5 - 10 mg 10/01/20 21:16 10/03/20 21:13 Oxycodone Hcl Ir 5 Mg Tab (Immediate Release) PO 10/11/20 16:37 10 mg Q4 PRN Administration Pain Potassium Chloride 10 meq 09/28/20 09:00 10/03/20 12:49 Potassium Chloride 10 Meq Tabcr PO 10/28/20 08:59 10 meq QAM NAY Administration Vitamin D 2,000 units 09/28/20 09:00 10/03/20 11:52 Cholecalciferol 1,000 Units 25 Mcg Tab PO 10/28/20 08:59 Not Given QAM [facility] NPO Date Last Intake of Fluids: 10/03/20 Time Last Intake of Fluids: 21:30 Date Last Intake of Solids: 10/02/20 Time Last Intake of Solids: 18:00 Last Intake of Solids Comment: Pt has been an a clear liquid Past Medical History Medical History Aortic stenosis, severe Apical ballooning syndrome Noted on RAHUL. Per cardiology consult , "Only mild left ventricular dysfunction and suspect stress mediated etiology rather than acute ischemic event. Patient on appropriate beta-sheryl therapy." Apical wall motion abnormality resolved on 08/04/20 ECHO Atrial fibrillation follows with Dr. Bui> NO PACER Bleeding hemorrhoids TO BE GETTING SURGERY FOR THIS IN NEAR FUTURE Carotid artery stenosis [place] , 50%, LICA 50-69% by 04/09/19 doppler Chronic diastolic heart failure CKD (chronic kidney disease), stage III Degenerative disc disease Depression Dyslipidemia Factor 5 Leiden mutation, heterozygous recurrent PE/DVT; status post IVC filter placement, on Coumadin Frequent UTI GERD (gastroesophageal reflux disease) Gout [place] filter in place History of COPD mild--inhaler/nebulizer prn History of esophageal disorder esophageal diverticulum History of peripheral neuropathy bilateral feet History of stress incontinence Hx of cancer of uterus diagnosed 03/2019---radiation only Hx of iron deficiency anemia Hypertension Intestinal disorder post op malabsorption Non-ST elevation [place] (NSTEMI) On anticoagulant therapy warfarin daily NICOLASA on CPAP Pes planus Post traumatic stress disorder Pulmonary embolism hx of bilateral ~2002 2/2 FFL Sleep apnea CPAP Spinal stenosis Stroke 06/03/2019 after I&D left hip--vision loss in left eye--no neurologist Vision abnormalities r peripheral vision loss( posterior ischemic optic neuropathyleft eye), left side altered vision like looking through a screen door Weakness Wheelchair dependence Exercise / Class Metabolic Activity III < 4 Walking/Shop/Light housework Past Family History Family History Mother , age 91 Heart disease Family hx colonic polyps Father , age 42 Factor V deficiency Myocardial infarction Sister No problems noted. Sister Endometrial cancer Brother Family hx colonic polyps Brother , age 50 Meningitis Brother No problems noted. Brother No problems noted. Son No problems noted. Son No problems noted. Son Colon abnormality Son , in his 30 `s , " girl friend over dosed the patients son " Drug overdose Grandfather (Paternal) Family history of diabetes mellitus Family hx of colon cancer Other No family history of adverse response to anesthesia Past Surgical History Surgical History H/O cystoscopy 06/23/20 and 07/20/20 [facility] History of arthroplasty of left hip 2006 @ [facility]--infected after, multiple sx's History of biopsy of bladder benign History of colonoscopy with polypectomy History of incision and drainage 05/2019 of left hip History of left hip replacement 03/2019 @ [facility] [place] History of left shoulder replacement History of right hip replacement 2005 @ [facility] History of tonsillectomy and adenoidectomy History of tooth extraction Hx of gastric bypass Hx of tubal ligation Hx of umbilical hernia repair mesh inserted S/P colon resection 1984 @ [facility] complete sigmoid removed d/t diverticular disease Past Anesthesia History No Hx of Anesthesia Complications and No Family Hx of Anesthesia Complications History of PONV No Hx of PONV and No Hx of Motion Sickness Social History Smoking Status: Former smoker tobacco type: cigarettes Smoking cigarettes per day: 10 Hx Alcohol Use: No Hx Substance Use: No substance use type: does not use Physical Exam Vital Signs Last Vital Signs Temp 36.3 C L 10/04/20 07:54 Pulse 59 L 10/04/20 07:54 Resp 18 10/04/20 07:54 BP 106/65 10/04/20 07:54 Pulse Ox 94 10/04/20 07:54 Constitutional + obese ENMT Mouth: + dentition abnormality and + poor dentition Thyromental Distance: < 3.5 Finger Breadths Mallampati Class: II Neck normal visual inspection and trachea midline; neck extension not limited Respiratory normal respiratory effort Auscultation: lungs clear to auscultation bilaterally Cardiovascular Rate/Rhythm: regular rate and regular rhythm Heart Sounds: + murmur (RUSB;3/6 ) Vessels: no carotid bruit Musculoskeletal Spine: normal cervical ROM Extremities: extremities normal to inspection Neurologic moves all extremities Motor/Sensory: no sensory deficit Psychiatric Orientation: alert and oriented x 3 Testing Laboratory Results 10/03/20 05:54 10/03/20 05:54 PT 14.6 Seconds (9.0-12.0) H 09/28/20 01:00 INR 1.4 (0.9-1.1) H 09/28/20 01:00 APTT 78.5 Seconds (21.0-31.0) H* 10/03/20 22:07 Urine Color Yellow 09/27/20 11:40 Urine Appearance Cloudy (Clear) A 09/27/20 11:40 Urine pH 7.0 (4.5-7.5) 09/27/20 11:40 Ur Specific [place] 1.014 (1.000-1.030) 09/27/20 11:40 Urine Protein Negative (Negative) 09/27/20 11:40 Urine Glucose (UA) Negative (Negative) 09/27/20 11:40 Urine Ketones Negative (Negative) 09/27/20 11:40 Urine Nitrite Positive (Negative) A 09/27/20 11:40 Ur Leukocyte Esterase 2+ (Negative) H 09/27/20 11:40 Urine WBC (Auto) >30 /hpf (0-5) H 09/27/20 11:40 Urine RBC (Auto) 0-4 /hpf (0-4) 09/27/20 11:40 U Hyaline Cast (Auto) 5-10 /lpf (0-5) H 09/27/20 11:40 U Epithel Cells (Auto) 0-5 /lpf (0-5) 09/27/20 11:40 Urine Bacteria (Auto) Negative (Negative) 09/27/20 11:40 Blood Type A Positive 10/01/20 22:30 Antibody Screen NEGATIVE 10/01/20 22:30 09/27/20 09:31 Aerobic Blood Culture - Final Blood No growth in Aerobic bottle after 5 days. Anaerobic Blood Culture - Final 09/27/20 09:30 Aerobic Blood Culture - Final Blood No growth in Aerobic bottle after 5 days. Anaerobic Blood Culture - Final 09/29/20 11:25 Escherichia coli Shiga Toxins Test - Final Stool Stool Culture - Final No Salmonella isolated, No Shigella isolated, No Campylobacter jejuni isolated. 09/27/20 14:45 Urine Culture - Final Urine,Straight Cath Yeast not [place] albicans/dub 09/27/20 11:45 Urine Culture - Final Urine,Straight Cath Morganella morganii Escherichia coli 09/28/20 18:15 Gram Stain - Final Leg,Left Wound Culture - Final Pseudomonas aeruginosa
[2020-10-04] MEDS ORDERED: ATROPINE SULFATE 0.1 MG/ML 10ML SYR IV PRN (08:47)
[2020-10-04] MEDS ORDERED: ePHEDrine sulfate 50 MG/ML AMP IV PRN (08:47)
--- NOTE | 2020-10-04 08:50 | History & Physical Report ---
Date of Service October 04, 2020 Assessment & Plan (1) Rectal bleeding: colonoscopy today (2) Anemia: Admission and Anticipated Discharge Date Admission Date: September 28, 2020 History of Present Illness Chief Complaint: heme positive stool Primary Care Provider: Sadi Shea DO heme positive stool Allergies Allergy/AdvReac Type Severity Reaction Status Date / Time adhesive Allergy Intermediate BLISTERS Verified 09/27/20 07:42 WITH STERI-STRIPS Iodinated Contrast Media Allergy Intermediate hive Verified 09/27/20 07:42 [Iodinated Contrast- Oral and IV Dye] naproxen Allergy Intermediate SWELLING - Verified 09/27/20 07:42 TOLERATES ESTEVES-[address] HALL ciprofloxacin Allergy Mild RASH Verified 09/27/20 07:42 Quinolones Allergy Mild NEUROLOGIC Verified 09/27/20 07:42 SYMPTOMS Home Medications Medication Instructions Recorded Confirmed Type allopurinol 100 mg PO BID 06/23/19 09/27/20 History ascorbic acid (vitamin C) [Vitamin 250 mg PO BID 06/23/19 09/27/20 History C] buspirone 5 mg PO TID 06/23/19 09/27/20 History cyanocobalamin (vitamin B-12) 1,000 mcg IM UD 06/23/19 09/27/20 History duloxetine [Cymbalta] 40 mg PO HS 06/23/19 09/27/20 History ondansetron 4 mg PO Q8H PRN 06/23/19 09/27/20 History oxycodone [Roxicodone] 5 mg PO Q4 PRN 06/23/19 09/27/20 History Flintstones Complete 1 tab PO QAM 08/27/19 09/27/20 History atorvastatin 40 mg PO PM 12/31/19 09/27/20 History bupropion HCl [Wellbutrin SR] 200 mg PO BID 12/31/19 09/27/20 History calcium carbonate [Tums Extra 750 mg PO UD PRN 12/31/19 09/27/20 History Strength Smoothies] calcium carbonate-vitamin D3 1 cap PO BID 12/31/19 09/27/20 History [Calcium 600 with Vitamin D3] cholecalciferol (vitamin D3) 2,000 unit PO QAM 12/31/19 09/27/20 History [Vitamin D3] nystatin 1 appln TOP BID PRN 12/31/19 09/27/20 History omeprazole 20 mg PO QAM 12/31/19 09/27/20 History oxybutynin chloride 5 mg PO BID 12/31/19 09/27/20 History Probiotic 3,000 mmu cells PO QAM 06/21/20 09/27/20 History potassium chloride [K-Tab] 10 meq PO QAM 06/21/20 09/27/20 History warfarin 4 mg PO SUMOWETHSA 06/21/20 09/27/20 History warfarin 2 mg PO TUFR 08/01/20 09/27/20 History hydrocortisone acetate [Anusol-HC] 25 mg NV HS #24 ea 08/03/20 09/27/20 Rx cefdinir 300 mg PO BID 10 Days #19 cap 09/20/20 09/27/20 Rx enoxaparin [Lovenox] 80 mg SUBCUT Q12H 09/25/20 09/27/20 History furosemide 20 mg PO SUFRSA 09/25/20 09/27/20 History furosemide [Lasix] 40 mg PO QAM 09/25/20 09/27/20 History metoprolol succinate 12.5 mg PO BID 09/25/20 09/27/20 History furosemide 40 mg PO MOTUWETH 09/27/20 09/27/20 History Past Med/Surg History Medical History Aortic stenosis, severe Apical ballooning syndrome Noted on RAHUL. Per cardiology consult , "Only mild left ventricular dysfunction and suspect stress mediated etiology rather than acute ischemic event. Patient on appropriate beta-sheryl therapy." Apical wall motion abnormality resolved on 08/04/20 ECHO Atrial fibrillation follows with Dr. Bui> NO PACER Bleeding hemorrhoids TO BE GETTING SURGERY FOR THIS IN NEAR FUTURE Carotid artery stenosis [place] , 50%, LICA 50-69% by 04/09/19 doppler Chronic diastolic heart failure CKD (chronic kidney disease), stage III Degenerative disc disease Depression Dyslipidemia Factor 5 Leiden mutation, heterozygous recurrent PE/DVT; status post IVC filter placement, on Coumadin Frequent UTI GERD (gastroesophageal reflux disease) Gout [place] filter in place History of COPD mild--inhaler/nebulizer prn History of esophageal disorder esophageal diverticulum History of peripheral neuropathy bilateral feet History of stress incontinence Hx of cancer of uterus diagnosed 03/2019---radiation only Hx of iron deficiency anemia Hypertension Intestinal disorder post op malabsorption Non-ST elevation [place] (NSTEMI) On anticoagulant therapy warfarin daily NICOLASA on CPAP Pes planus Post traumatic stress disorder Pulmonary embolism hx of bilateral ~12/12 FFL Sleep apnea CPAP Spinal stenosis Stroke 06/03/2019 after I&D left hip--vision loss in left eye--no neurologist Vision abnormalities r peripheral vision loss( posterior ischemic optic neuropathyleft eye), left side altered vision like looking through a screen door Weakness Wheelchair dependence Surgical History H/O cystoscopy 06/23/20 and 07/20/20 [facility] History of arthroplasty of left hip 2006 @ [facility]--infected after, multiple sx's History of biopsy of bladder benign History of colonoscopy with polypectomy History of incision and drainage 05/2019 of left hip History of left hip replacement 03/2019 @ [facility] [place] History of left shoulder replacement History of right hip replacement 2005 @ [facility] History of tonsillectomy and adenoidectomy History of tooth extraction Hx of gastric bypass Hx of tubal ligation Hx of umbilical hernia repair mesh inserted S/P colon resection 1984 @ [facility] [place] complete sigmoid removed d/t diverticular disease Family History Mother , age 91 Heart disease Family hx colonic polyps Father , age 42 Factor V deficiency Myocardial infarction Sister No problems noted. Sister Endometrial cancer Brother Family hx colonic polyps Brother , age 50 Meningitis Brother No problems noted. Brother No problems noted. Son No problems noted. Son No problems noted. 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: No Beliefs That Will Affect Care: None marital status: / Current Living Situation: Family Current Living Situation Comment: Lives w/ son current occupational status: retired 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 Feels Safe at Home: Yes Assistive Devices: Glasses and Walker Review of Systems All systems reviewed & are unremarkable except as noted in HPI & below Results & Data ([facility]) Vital Signs (Past 12 Hours) Vital Signs Temp Pulse Pulse Resp BP BP Pulse Ox 10/04/20 08:37 36.6 C 68 18 131/80 97 10/04/20 07:54 36.3 C L 59 L 18 106/65 94 10/04/20 07:11 70 10/04/20 03:37 36.4 C L 67 18 99/63 L 95 10/03/20 23:53 36.8 C 77 19 108/67 93 10/03/20 22:50 74 Code Status & VTE Plan VTE Prophylaxis Plan VTE Prophylaxis will be ordered: No Reason for no VTE drug order: Treatment not indicated Reason for no VTE mechanical prophylaxis: Treatment not indicated
[2020-10-04] MEDS ORDERED: WATER, STERILE FOR INJ 10 ML VIAL ONE (09:11)
[2020-10-04] MEDS ORDERED: ePHEDrine sulfate 50 MG/ML AMP ONE (09:11)
--- NOTE | 2020-10-04 09:19 | GI REPORT ---
Patient Name: Pb Liang Procedure Date: 10/04/2020 8:52 AM Date of : 1945 Admit Type: Inpatient Age: 74 Gender: Female Attending MD: Amanda Vicente DO Procedure: Colonoscopy Providers: Amanda Vicente DO Referring MD: Anuja Iqbal Md Indications: Rectal bleeding Medicines: Propofol per Anesthesia Complications: No immediate complications. Estimated blood loss: Minimal. Estimated Blood Loss: Estimated blood loss was minimal. Procedure: Pre-Anesthesia Assessment: - Prior to the procedure, a History and Physical was performed, and patient medications, allergies and sensitivities were reviewed. The patient's tolerance of previous anesthesia was reviewed. - The risks and benefits of the procedure and the sedation options and risks were discussed with the patient. All questions were answered and informed consent was obtained. - Patient identification and proposed procedure were verified prior to the procedure by the physician and the nurse. The procedure was verified in the pre-procedure area in the procedure room. - Mental Status Examination: alert and oriented. Airway Examination: normal oropharyngeal airway and neck mobility. Respiratory Examination: clear to auscultation. CV Examination: normal. Abdominal Examination: bowel sounds present, abdomen soft and non-tender, no masses or organomegaly noted. - ASA Grade Assessment: III - A patient with severe systemic disease. After I obtained informed consent, the scope was passed under direct vision. Throughout the procedure, the patient's blood pressure, pulse, and oxygen saturations were monitored continuously. The Colonoscope was introduced through the anus with the intention of advancing to the cecum. The scope was advanced to the transverse colon before the procedure was aborted. Medications were given. The colonoscopy was performed without difficulty. The patient tolerated the procedure well. The quality of the bowel preparation was inadequate. Findings: The perianal and digital rectal examinations were normal. Pertinent negatives include normal sphincter tone and no palpable rectal lesions. A segmental area of mildly congested and erythematous mucosa was found in the recto-sigmoid colon. Biopsies were taken with a cold forceps for histology. Verification of patient identification for the specimen was done by the physician and nurse using the patient's name and date. Estimated blood loss was minimal. Internal hemorrhoids were found during retroflexion. The hemorrhoids were medium-sized and Grade I (internal hemorrhoids that do not prolapse). Impression: - Preparation of the colon was inadequate. - Congested and erythematous mucosa in the recto-sigmoid colon. Biopsied. - Internal hemorrhoids. Recommendation: - Await pathology results. - Return patient to [facility] for ongoing care. - Advance diet as tolerated. Patrick Bruce, 10/04/2020 9:18:52 AM This report has been signed electronically. Note Initiated On: 10/04/2020 8:52 AM Number of Addenda: 0 I attest to the content of the Intraoperative Record and orders documented therein, exceptions below {[id number]}
--- NOTE | 2020-10-04 09:34 | Anesthesiology Progress Note ---
Date of Service October 04, 2020 Anesthesia Post Procedure Vital Signs Vital Signs: Temp Pulse Pulse Resp BP BP Pulse Ox 10/04/20 09:28 65 16 138/80 98 10/04/20 09:14 36.6 C 70 16 146/76 H 97 10/04/20 08:37 36.6 C 68 18 131/80 97 10/04/20 07:54 36.3 C L 59 L 18 106/65 94 10/04/20 07:11 70 10/04/20 03:37 36.4 C L 67 18 99/63 L 95 10/03/20 23:53 36.8 C 77 19 108/67 93 10/03/20 22:50 74 10/03/20 20:00 36.5 C 73 18 108/75 99 10/03/20 15:51 36.6 C 84 20 107/57 L 100 10/03/20 11:34 36.7 C 68 18 120/71 92 Pain Intensity Generalized: Pain Intensity: 7 Transfer of Care Handoff Completed per policy Notes Mental Status: alert / awake / arousable Patient Amnestic to Procedure: Yes Nausea / Vomiting: adequately controlled Pain: adequately controlled Airway Patency, RR, SpO2: stable & adequate BP & HR: stable & adequate Hydration State: stable & adequate Anesthetic Complications: no major complications apparent
[2020-10-04] MEDS: busPIRone 5 MG TAB PO SCH ×3 (10:56→20:41)
[2020-10-04] MEDS: CALCIUM 600MG + VIT D 400 IU TAB PO SCH ×2 (10:57→20:40)
[2020-10-04] MEDS: OXYBUTYNIN CHLORIDE 5 MG TAB PO SCH ×2 (10:58→20:40)
[2020-10-04] MEDS: POTASSIUM CHLORIDE 10 MEQ TABCR PO SCH (10:58)
[2020-10-04] MEDS: PANTOprazole 40 MG in SYRINGE 0 ML IV SCH ×2 (10:59→20:40)
[2020-10-04] MEDS: MULTIVITAMIN CHEWABLE TAB PO SCH (10:59)
[2020-10-04] MEDS: METOPROLOL SUCC 25MG EXT REL TAB PO SCH ×2 (11:00→20:41)
[2020-10-04] MEDS: CHOLECALCIFEROL 1,000 UNITS 25 MCG TAB PO SCH (11:03)
[2020-10-04] MEDS: allopurinoL 100 MG TAB PO SCH ×2 (11:04→20:41)
[2020-10-04 11:36] LABS: Basophils # (auto) 0.01 K/uL (0-0.2); Basophils % (auto) 0.2 %; Eosinophils % (auto) 2.1 %; Hematocrit (blood only) 26.7 % (37-47); Hemoglobin 8.3 g/dL (12.0-16.0); Immature Granulocytes # (auto) 0.01 K/uL (0.00-0.02); Immature Granulocytes % (auto) 0.2 %; Lymphocytes # (auto) 0.58 K/uL (1.2-3.4); Lymphocytes % (auto) 12.2 %; Mean Corpuscular Hemoglobin 30.2 pg (25-34); Mean Corpuscular Hgb Conc 31.1 g/dL (32-36); Mean Corpuscular Volume 97.1 fL (80-100); Mean Platelet Volume 10.6 fL (7.4-10.4); Monocytes # (auto) 0.34 K/uL (0.11-0.59); Monocytes % (auto) 7.2 %; Neutrophils % (auto) 78.1 %; Platelet Count 217 K/uL (130-400); RDW Coefficient of Variation 18.4 % (11.5-14.5); RDW Standard Deviation 64.2 fL (36.4-46.3); Red Blood Count 2.75 M/uL (4.2-5.4); White Blood Count 4.74 K/uL (4.8-10.8)
[2020-10-04 11:48] LABS: Partial Thromboplastin Time 27.5 Seconds (21.0-31.0)
[2020-10-04] MEDS: CEFEPIME 2,000 MG in SYRINGE 0 ML IV SCH (11:59)
[2020-10-04 12:03] LABS: BUN Creatinine Ratio 20.9 (10-20); Calcium 7.8 mg/dl (8.5-10.1); Est GFR (Non-African American) 52.6; Potassium 4.1 mmol/L (3.5-5.1)
[2020-10-04] MEDS: HEPARIN SODIUM/DEXTROSE 25,000 UNITS/500 ML BAG IV SCH (13:09)
--- NOTE | 2020-10-04 13:14 | Hospitalist Progress Note ---
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 coli sepsis secondary to obstructive uropathy/renal lithiasis requiring left ureteral stenting who presents to ED secondary to weakness x2 days. (1) Weakness: (2) Calculus, ureteral: Acute renal failure, on CKD stage III CT A/P showed numerous obstructing calculi/Steinstrasse seen in the distal left ureter above the vesicoureteral junction. Fragments measure up to at least 5 mm, and this causes moderate left-sided hydroureteronephrosis. Status post cystoscopy with left ureteral stent placement Stable after procedure Creatinine improved from 1.8, back to 1.05 today Continue monitoring Will follow up with Urology outpatient for definitive stone treatment (3) Acute UTI: Recent urine culture + e.coli Urine culture on admission grew Morganella and E. coli Currently on cefepime to complete therapy for another 3 days (4) Infected Wound, Cellulitis of left leg: Wound culture grew Pseudomonas Improving Continue cefepime (5) Hematochezia Possible lower GI bleed Colonoscopy January 12, 2020 reveals diverticulosis, internal hemorrhoids Hemoglobin 9.5--> decreased but remained stable around 8 Currently on heparin drip (for Factor V Leiden Deficiency) GI on board Had colonoscopy this morning. Discussed with Dr Vicente. Had mild congested and erythematous mucosa in recto-sigmoid colon with biopsies takes. Colon prep was inadequate Has not had any more bleeding since admission Reported diarrhea daily x 1 month C. difficile gene positive, toxin negative (6) Chronic diastolic heart failure: (7) Aortic stenosis, severe: (8) Apical ballooning syndrome: Chronic diastolic CHF with apical ballooning syndrome on 06/2020 echo Severe calcific aortic stenosis -work up In progress Lasix initially held for elevated crea 1.3, likely due to dehydration from bowel prep Cr is 1.05 today Resume lasix today at 40mg daily and monitor. Gradually increase to home dose while monitoring volume and renal status (takes 80mg fr, sa, sun and 60mg all other days) (9) CKD (chronic kidney disease), stage III: Creatinine improved from 1.8, back to 1.05 today (10) Anemia: On 09/25/2020 H&H was 11.1 She does receive vitamin B12 injections in setting of history of gastric bypass Iron studies 07/27/2020 revealed ferritin 3476, iron 52, transferrin saturation 23, TIBC 230 Hb trended down and has been stable in 8s Last cspope 01/2020 showed sigmoid divertic, int hemorrhoids - on anusol Warfarin was initially held while being prepped for colonoscopy and was on heparin drip No hematochezia since admission. FOBT negative Resume heparin to coumadin bridge Monitor INR and Hb (11) Factor 5 Leiden mutation, heterozygous: History of recurrent DVT/PE, [place] filter in place Prior to admission was on Lovenox bridge, last dose a.m. of 09/26 for procedure on 09/27 Per MTM recommendations are 8mg x 2 days and then resume normal dosing of 2 mg Friday and Friday and 4 mg all other days Start warfarin 8mg x 2 days today with heparin bridge (12) Wheelchair dependence: Patient with chronic left prosthetic hip infection and is wheelchair dependent At baseline she is able to do self transfers PT and OT evaluation (13) NICOLASA on CPAP: CPAP at HS (14) DVT prophylaxis: Hx of DVT/PE, on chronic Coumadin therapy Heparin drip Disposition: Lives with children at home Patient prefers to go home with home health services Follow-up: PCP Dr. Shea upon discharge Plan of care discussed with patient in details Updated CM Admission and Anticipated Discharge Date Admission Date: September 28, 2020 Subjective Patient seen and examined on return from colonoscopy. Denied any abd pain, nausea, vomiting No rectal bleed since after admission Denied fevers, chills Denied chest pain, SOB, cough Denied dysuria, freq Reports chronic right shoulder and left hip pain Physical Exam Constitutional: + well hydrated and + obese; no acute distress Eyes: PERRL, conjunctivae normal, anicteric sclerae ENMT: external ear and nose normal, oropharynx normal Neck: Right central line Respiratory: normal respiratory effort, lungs clear to auscultation Cardiovascular: Rate/Rhythm: regular rate and regular rhythm S1 S2, harsh systolic ejection murmur Gastrointestinal (Abdomen): normal bowel sounds, soft, nontender, no hepatosplenomegaly Musculoskeletal: LLE wound healing well. Has surrounding erythema. No tenderness Trace bilateral leg edema Neurologic: PERRL, EOMI, accommodation nl, no face palsy, no dysarthria Psychiatric: A+Ox3, euthymic affect Results & Data Results & Data ([facility]) Vital Signs (Past 12 Hours) Vital Signs Temp Pulse Pulse Resp BP BP Pulse Ox 10/04/20 11:00 36.7 C 64 18 105/69 96 10/04/20 09:43 62 16 151/70 H 97 10/04/20 09:28 65 16 138/80 98 10/04/20 09:14 36.6 C 70 16 146/76 H 97 10/04/20 08:37 36.6 C 68 18 131/80 97 10/04/20 07:54 36.3 C L 59 L 18 106/65 94 10/04/20 07:11 70 10/04/20 03:37 36.4 C L 67 18 99/63 L 95 Laboratory Results Laboratory Results - last 24 hr 10/03/20 10/03/20 10/03/20 14:34 22:07 Unknown WBC RBC Hgb Hct MCV MCH MCHC RDW Std Deviation RDW Coeff of Karla Plt Count MPV Immature Gran % (Auto) Neut % (Auto) Lymph % (Auto) [place] % (Auto) Eos % (Auto) Baso % (Auto) Neut # (Auto) Lymph # (Auto) [place] # (Auto) Eos # (Auto) Baso # (Auto) Immature Gran # (Auto) APTT 27.0 78.5 H* PTT Ratio 1.0 2.8 Sodium Potassium Chloride Carbon Dioxide Anion Gap BUN Creatinine Est Cr Clr Drug Dosing Est GFR ( Amer) Est GFR (Non-Af Amer) BUN/Creatinine Ratio Glucose Calcium Stool Occult Bld Scrn Negative 10/04/20 10/04/20 10/04/20 11:03 11:03 11:03 WBC 4.74 L RBC 2.75 L Hgb 8.3 L Hct 26.7 L MCV 97.1 MCH 30.2 MCHC 31.1 L RDW Std Deviation 64.2 H RDW Coeff of Karla 18.4 H Plt Count 217 MPV 10.6 H Immature Gran % (Auto) 0.2 Neut % (Auto) 78.1 Lymph % (Auto) 12.2 [place] % (Auto) 7.2 Eos % (Auto) 2.1 Baso % (Auto) 0.2 Neut # (Auto) 3.70 Lymph # (Auto) 0.58 L [place] # (Auto) 0.34 Eos # (Auto) 0.10 Baso # (Auto) 0.01 Immature Gran # (Auto) 0.01 APTT 27.5 PTT Ratio 1.0 Sodium 140 Potassium 4.1 Chloride 109 H Carbon Dioxide 31 Anion Gap 0 L BUN 22 H Creatinine 1.05 Est Cr Clr Drug Dosing 54.0 Est GFR ( Amer) 61.0 Est GFR (Non-Af Amer) 52.6 BUN/Creatinine Ratio 20.9 H Glucose 66 L Calcium 7.8 L Stool Occult Bld Scrn
[2020-10-04] MEDS ORDERED: FUROSEMIDE 40 MG TAB PO ONE (13:45)
[2020-10-04] MEDS: WARFARIN SOD 4 MG TAB PO SCH (15:54)
[2020-10-04 19:14] LABS: Partial Thromboplastin Ratio 1.9
[2020-10-04 19:19] LABS: Partial Thromboplastin Time 52.1 Seconds (21.0-31.0)
[2020-10-04] MEDS: DULoxetine HCL 20 MG CAP PO SCH (20:41)
[2020-10-04] MEDS: HYDROCORTISONE ACETATE 25 MG SUPP PR SCH (20:42)
[2020-10-04] MEDS: ATORVASTATIN 40 MG TAB PO SCH (20:42)
[2020-10-04] MEDS: oxyCODONE HCL IR 5 MG TAB (IMMEDIATE RELEASE) PO PRN (21:48)
[2020-10-05] MEDS: ADVANCED PROBIOTIC 1250 MG CAPSULE PO SCH (06:17)
[2020-10-05] MEDS: buPROPion SR 100 MG TABCR PO SCH ×2 (06:17→11:59)
[2020-10-05 07:43] LABS: Hematocrit (blood only) 25.1 % (37-47); Mean Corpuscular Hgb Conc 31.9 g/dL (32-36); Mean Corpuscular Volume 97.3 fL (80-100); Mean Platelet Volume 10.1 fL (7.4-10.4); Platelet Count 200 K/uL (130-400); RDW Coefficient of Variation 18.6 % (11.5-14.5); RDW Standard Deviation 64.7 fL (36.4-46.3); Red Blood Count 2.58 M/uL (4.2-5.4)
[2020-10-05 07:54] LABS: INR 1.4 (0.9-1.1); Prothrombin Time 14.4 Seconds (9.0-12.0)
[2020-10-05] MEDS: ACETAMINOPHEN 325 MG TAB PO PRN (08:05)
[2020-10-05] MEDS: METOPROLOL SUCC 25MG EXT REL TAB PO SCH ×2 (08:06→20:36)
[2020-10-05] MEDS: busPIRone 5 MG TAB PO SCH ×3 (08:06→20:39)
[2020-10-05] MEDS: CALCIUM 600MG + VIT D 400 IU TAB PO SCH ×2 (08:06→20:39)
[2020-10-05] MEDS: PANTOprazole 40 MG in SYRINGE 0 ML IV SCH ×2 (08:07→20:41)
[2020-10-05] MEDS: CHOLECALCIFEROL 1,000 UNITS 25 MCG TAB PO SCH (08:07)
[2020-10-05] MEDS: OXYBUTYNIN CHLORIDE 5 MG TAB PO SCH ×2 (08:07→20:42)
[2020-10-05] MEDS: allopurinoL 100 MG TAB PO SCH ×2 (08:07→20:39)
[2020-10-05] MEDS: MULTIVITAMIN CHEWABLE TAB PO SCH (08:08)
[2020-10-05] MEDS: POTASSIUM CHLORIDE 10 MEQ TABCR PO SCH (08:08)
[2020-10-05] MEDS: FUROSEMIDE 40 MG TAB PO SCH (08:08)
[2020-10-05 08:31] LABS: Partial Thromboplastin Ratio 2.8
[2020-10-05 08:48] LABS: Partial Thromboplastin Time 78.8 Seconds (21.0-31.0)
[2020-10-05 09:09] LABS: BUN Creatinine Ratio 19.9 (10-20); Calcium 7.7 mg/dl (8.5-10.1); Creatinine Clr Calc Pharmacy 48.1 ml/min; Est GFR (Non-African American) 45.7
--- NOTE | 2020-10-05 09:44 | Hospitalist Progress Note ---
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 coli sepsis secondary to obstructive uropathy/renal lithiasis requiring left ureteral stenting who presents to ED secondary to weakness x2 days. (1) Weakness: (2) Calculus, ureteral: Acute renal failure, on CKD stage III CT A/P showed numerous obstructing calculi/Steinstrasse seen in the distal left ureter above the vesicoureteral junction. Fragments measure up to at least 5 mm, and this causes moderate left-sided hydroureteronephrosis. Status post cystoscopy with left ureteral stent placement Stable after procedure Creatinine improved from peak of 1.8 Cr is 1.18 today Continue monitoring Will follow up with Urology outpatient for definitive stone treatment (3) Acute UTI: Recent urine culture + e.coli Urine culture on admission grew Morganella and E. coli Currently on cefepime to complete therapy for another 2 days (4) Infected Wound, Cellulitis of left leg: Wound culture grew Pseudomonas Improving Continue cefepime (5) Hematochezia Possible lower GI bleed Colonoscopy January 12, 2020 reveals diverticulosis, internal hemorrhoids Hemoglobin 9.5--> decreased but remained stable around 8 Currently on heparin drip (for Factor V Leiden Deficiency) GI on board Had colonoscopy on 10/04/20. Discussed with Dr Vicente. Had mild congested and erythematous mucosa in recto-sigmoid colon with biopsies takes. Colon prep was inadequate Has not had any more bleeding since admission Reported diarrhea daily x 1 month C. difficile gene positive, toxin negative (6) Chronic diastolic heart failure: (7) Aortic stenosis, severe: (8) Apical ballooning syndrome: Chronic diastolic CHF with apical ballooning syndrome on 06/2020 echo Severe calcific aortic stenosis -work up In progress Lasix initially held for elevated crea 1.3, likely due to dehydration from bowel prep Cr is 1.18 today Monitor Cr with resumption of diuretics Gradually increase to home dose while monitoring volume and renal status (takes 80mg fr, sa, sun and 60mg all other days) (9) CKD (chronic kidney disease), stage III: Creatinine improved from 1.8, back to 1.05 today (10) Anemia: On 09/25/2020 H&H was 11.1 She does receive vitamin B12 injections in setting of history of gastric bypass Iron studies 07/27/2020 revealed ferritin 3476, iron 52, transferrin saturation 23, TIBC 230 Hb trended down and has been stable in 8s Last cspope 01/2020 showed sigmoid divertic, int hemorrhoids - on anusol Warfarin was initially held while being prepped for colonoscopy and was on heparin drip No hematochezia since admission. FOBT negative Warfarin resumed Monitor INR and Hb (11) Factor 5 Leiden mutation, heterozygous: History of recurrent DVT/PE, [place] filter in place Prior to admission was on Lovenox bridge, last dose a.m. of 09/26 for procedure on 09/27 Per MTM recommendations are 8mg x 2 days and then resume normal dosing of 2 mg Friday and Friday and 4 mg all other days INR 1.4 today Give warfarin 8mg today with heparin bridge and then continue home regimen from tomorrow (12) Wheelchair dependence: Patient with chronic left prosthetic hip infection and is wheelchair dependent At baseline she is able to do self transfers PT and OT evaluation (13) NICOLASA on CPAP: CPAP at (14) DVT prophylaxis: Hx of DVT/PE, on chronic Coumadin therapy Heparin drip Disposition: Lives with children at home Patient prefers to go home with home health services Follow-up: PCP Dr. Shea upon discharge Plan of care discussed with patient in details Admission and Anticipated Discharge Date Admission Date: September 28, 2020 Subjective Patient seen and examined Reported abdominal pain during bowel movement yesterday that resolved once she moved her bowel. Reported BM was loose, nonbloody Denied any chest pain, cough, SOB No fevers Denied chills Reports arthritic pain controlled Physical Exam Constitutional: + well hydrated and + obese; no acute distress Eyes: PERRL, conjunctivae normal, anicteric sclerae ENMT: external ear and nose normal, oropharynx normal Respiratory: normal respiratory effort, lungs clear to auscultation Cardiovascular: Rate/Rhythm: regular rate and regular rhythm Gastrointestinal (Abdomen): normal bowel sounds, soft, nontender, no hepat osplenomegaly Musculoskeletal: LLE wound healing well. Has surrounding erythema. No tenderness No pedal edema Neurologic: PERRL, EOMI, accommodation nl, no face palsy, no dysarthria Psychiatric: A+Ox3, euthymic affect Results & Data Results & Data ([facility]) Vital Signs (Past 12 Hours) Vital Signs Temp Pulse Pulse Resp BP BP Pulse Ox 10/05/20 07:20 65 10/05/20 07:09 37.0 C 76 18 121/64 94 10/05/20 03:15 36.5 C 66 18 92/53 L 95 10/04/20 23:43 76 10/04/20 23:41 37.0 C 86 20 94/62 L 93 Laboratory Results Laboratory Results - last 24 hr 10/04/20 10/04/20 10/04/20 11:03 11:03 11:03 WBC 4.74 L RBC 2.75 L Hgb 8.3 L Hct 26.7 L MCV 97.1 MCH 30.2 MCHC 31.1 L RDW Std Deviation 64.2 H RDW Coeff of Karla 18.4 H Plt Count 217 MPV 10.6 H Immature Gran % (Auto) 0.2 Neut % (Auto) 78.1 Lymph % (Auto) 12.2 [place] % (Auto) 7.2 Eos % (Auto) 2.1 Baso % (Auto) 0.2 Neut # (Auto) 3.70 Lymph # (Auto) 0.58 L [place] # (Auto) 0.34 Eos # (Auto) 0.10 Baso # (Auto) 0.01 Immature Gran # (Auto) 0.01 PT INR APTT 27.5 PTT Ratio 1.0 Sodium 140 Potassium 4.1 Chloride 109 H Carbon Dioxide 31 Anion Gap 0 L BUN 22 H Creatinine 1.05 Est Cr Clr Drug Dosing 54.0 Est GFR ( Amer) 61.0 Est GFR (Non-Af Amer) 52.6 BUN/Creatinine Ratio 20.9 H Glucose 66 L Calcium 7.8 L 10/04/20 10/05/20 10/05/20 18:39 07:30 07:30 WBC 5.10 RBC 2.58 L Hgb 8.0 L Hct 25.1 L MCV 97.3 MCH 31.0 MCHC 31.9 L RDW Std Deviation 64.7 H RDW Coeff of Karla 18.6 H Plt Count 200 MPV 10.1 Immature Gran % (Auto) Neut % (Auto) Lymph % (Auto) [place] % (Auto) Eos % (Auto) Baso % (Auto) Neut # (Auto) Lymph # (Auto) [place] # (Auto) Eos # (Auto) Baso # (Auto) Immature Gran # (Auto) PT 14.4 H INR 1.4 H APTT 52.1 H* PTT Ratio 1.9 Sodium Potassium Chloride Carbon Dioxide Anion Gap BUN Creatinine Est Cr Clr Drug Dosing Est GFR ( Amer) Est GFR (Non-Af Amer) BUN/Creatinine Ratio Glucose Calcium 10/05/20 10/05/20 07:30 07:30 WBC RBC Hgb Hct MCV MCH MCHC RDW Std Deviation RDW Coeff of Karla Plt Count MPV Immature Gran % (Auto) Neut % (Auto) Lymph % (Auto) [place] % (Auto) Eos % (Auto) Baso % (Auto) Neut # (Auto) Lymph # (Auto) [place] # (Auto) Eos # (Auto) Baso # (Auto) Immature Gran # (Auto) PT INR APTT 78.8 H* PTT Ratio 2.8 Sodium 139 Potassium 4.0 Chloride 109 H Carbon Dioxide 27 Anion Gap 3.0 BUN 23 H Creatinine 1.18 Est Cr Clr Drug Dosing 48.1 Est GFR ( Amer) 53.0 Est GFR (Non-Af Amer) 45.7 BUN/Creatinine Ratio 19.9 Glucose 71 Calcium 7.7 L
[2020-10-05] MEDS: CEFEPIME 2,000 MG in SYRINGE 0 ML IV SCH (11:59)
[2020-10-05 15:40] LABS: Partial Thromboplastin Ratio 2.6
[2020-10-05 16:09] LABS: Partial Thromboplastin Time 71.9 Seconds (21.0-31.0)
[2020-10-05] MEDS: HEPARIN SODIUM/DEXTROSE 25,000 UNITS/500 ML BAG IV SCH (16:13)
[2020-10-05] MEDS: WARFARIN SOD 4 MG TAB PO SCH (16:16)
[2020-10-05] MEDS: HYDROCORTISONE ACETATE 25 MG SUPP PR SCH (20:36)
[2020-10-05] MEDS: ATORVASTATIN 40 MG TAB PO SCH (20:36)
[2020-10-05] MEDS: DULoxetine HCL 20 MG CAP PO SCH (20:39)
[2020-10-05 23:08] LABS: Partial Thromboplastin Ratio 2.6
[2020-10-05 23:37] LABS: Partial Thromboplastin Time 72.7 Seconds (21.0-31.0)
[2020-10-06] MEDS: oxyCODONE HCL IR 5 MG TAB (IMMEDIATE RELEASE) PO PRN ×3 (01:15→18:51)
[2020-10-06] MEDS: ADVANCED PROBIOTIC 1250 MG CAPSULE PO SCH (06:15)
[2020-10-06] MEDS: buPROPion SR 100 MG TABCR PO SCH ×2 (06:15→13:54)
[2020-10-06 08:10] LABS: Prothrombin Time 20.3 Seconds (9.0-12.0)
--- NOTE | 2020-10-06 08:57 | Hospitalist Progress Note ---
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 coli sepsis secondary to obstructive uropathy/renal lithiasis requiring left ureteral stenting who presents to ED secondary to weakness x2 days. (1) Weakness: (2) Calculus, ureteral: Acute renal failure, on CKD stage III CT A/P showed numerous obstructing calculi/Steinstrasse seen in the distal left ureter above the vesicoureteral junction. Fragments measure up to at least 5 mm, and this causes moderate left-sided hydroureteronephrosis. Status post cystoscopy with left ureteral stent placement Stable after procedure Creatinine improved from peak of 1.8 and trended down Continue monitoring Will follow up with Urology outpatient for definitive stone treatment (3) Acute UTI: Recent urine culture + e.coli Urine culture on admission grew Morganella (resistant to multiple antibiotics) and E. coli Currently on cefepime to complete therapy- Day 6 today Ramírez removed yesterday. Monitor urinary symptoms (4) Infected Wound, Cellulitis of left leg: Wound culture grew Pseudomonas Healing Cefepime for UTI covers for this as well (5) Hematochezia Possible lower GI bleed Colonoscopy January 12, 2020 reveals diverticulosis, internal hemorrhoids Hemoglobin 9.5--> decreased but remained stable around 8 Currently on heparin drip (for Factor V Leiden Deficiency) GI on board Had colonoscopy on 10/04/20. Discussed with Dr Vicente. Had mild congested and erythematous mucosa in recto-sigmoid colon with biopsies takes. Colon prep was inadequate Has not had any more bleeding since admission Reported diarrhea daily x 1 month C. difficile gene positive, toxin negative (6) Chronic diastolic heart failure: (7) Aortic stenosis, severe: (8) Apical ballooning syndrome: Chronic diastolic CHF with apical ballooning syndrome on 06/2020 echo Severe calcific aortic stenosis -work up In progress Lasix initially held for elevated crea 1.3, likely due to dehydration from bowel prep Monitor Cr If stable tomorrow, increase to home dose while monitoring volume and renal status (takes 80mg fr, sa, sun and 60mg all other days) (9) CKD (chronic kidney disease), stage III: Creatinine improved from 1.8, trended down (10) Anemia: On 09/25/2020 H&H was 11.1 She does receive vitamin B12 injections in setting of history of gastric bypass Iron studies 07/27/2020 revealed ferritin 3476, iron 52, transferrin saturation 23, TIBC 230 Hb trended down and has been stable in 8s Last cspope 01/2020 showed sigmoid divertic, int hemorrhoids - on anusol Warfarin was initially held while being prepped for colonoscopy and was on heparin drip No hematochezia since admission. FOBT negative Warfarin resumed Monitor INR and Hb (11) Factor 5 Leiden mutation, heterozygous: History of recurrent DVT/PE, [place] filter in place Prior to admission was on Lovenox bridge, last dose a.m. of 09/26 for procedure on 09/27 Per MTM recommendations are 8mg x 2 days and then resume normal dosing of 2 mg Friday and Friday and 4 mg all other days INR is 2 today Discontinue heparin drip. Resume home warfarin dose and monitor (12) Wheelchair dependence: Patient with chronic left prosthetic hip infection and is wheelchair dependent At baseline she is able to do self transfers PT and OT evaluation noted. Patient wants to go home instead (13) NICOLASA on CPAP: CPAP at HS (14) DVT prophylaxis: Hx of DVT/PE, on chronic Coumadin therapy Heparin drip Disposition: Lives with children at home Patient prefers to go home with home health services once medically stable Follow-up: PCP Dr. Shea upon discharge Plan of care discussed with patient in details Admission and Anticipated Discharge Date Admission Date: September 28, 2020 Physical Exam Constitutional: + well hydrated and + obese; no acute distress Eyes: PERRL, conjunctivae normal, anicteric sclerae ENMT: external ear and nose normal, oropharynx normal Respiratory: normal respiratory effort, lungs clear to auscultation Cardiovascular: Rate/Rhythm: regular rate and regular rhythm Gastrointestinal (Abdomen): normal bowel sounds, soft, nontender, no hepatosplenomegaly Musculoskeletal: LLE wound healing well. Has surrounding erythema. No tenderness No pedal edema Some bruise on left forearm. Neurologic: PERRL, EOMI, accommodation nl, no face palsy, no dysarthria Psychiatric: A+Ox3, euthymic affect Results & Data Results & Data ([facility]) Vital Signs (Past 12 Hours) Vital Signs Temp Pulse Pulse Resp BP BP Pulse Ox 10/06/20 07:23 68 10/06/20 07:13 36.6 C 64 20 90/59 L 96 10/06/20 03:09 36.6 C 67 17 96/50 L 96 10/06/20 00:00 68 10/05/20 23:00 37.0 C 69 17 92/49 L 97 Laboratory Results Laboratory Results - last 24 hr 10/05/20 10/05/20 10/06/20 15:07 22:34 07:41 PT 20.3 H INR 2.0 H APTT 71.9 H* 72.7 H* 61.0 H* PTT Ratio 2.6 2.6 2.2
[2020-10-06] MEDS: PANTOprazole 40 MG in SYRINGE 0 ML IV SCH ×2 (09:09→22:01)
[2020-10-06] MEDS: CHOLECALCIFEROL 1,000 UNITS 25 MCG TAB PO SCH (09:10)
[2020-10-06] MEDS: OXYBUTYNIN CHLORIDE 5 MG TAB PO SCH ×2 (09:10→22:03)
[2020-10-06] MEDS: busPIRone 5 MG TAB PO SCH ×3 (09:10→22:03)
[2020-10-06] MEDS: MULTIVITAMIN CHEWABLE TAB PO SCH (09:10)
[2020-10-06] MEDS: METOPROLOL SUCC 25MG EXT REL TAB PO SCH ×2 (09:11→22:03)
[2020-10-06] MEDS: POTASSIUM CHLORIDE 10 MEQ TABCR PO SCH (09:11)
[2020-10-06] MEDS: FUROSEMIDE 40 MG TAB PO SCH (09:11)
[2020-10-06] MEDS: allopurinoL 100 MG TAB PO SCH ×2 (09:11→22:04)
[2020-10-06] MEDS: CALCIUM 600MG + VIT D 400 IU TAB PO SCH ×2 (09:12→22:04)
[2020-10-06] MEDS: NYSTATIN POWDER 15GM BTL EXT SCH ×2 (09:12→22:04)
[2020-10-06 10:31] LABS: Partial Thromboplastin Ratio 2.2
[2020-10-06] MEDS: CEFEPIME 2,000 MG in SYRINGE 0 ML IV SCH (11:44)
[2020-10-06] MEDS ORDERED: WARFARIN SOD 2 MG TAB PO SCH (16:00)
[2020-10-06] MEDS: DULoxetine HCL 20 MG CAP PO SCH (22:03)
[2020-10-06] MEDS: ATORVASTATIN 40 MG TAB PO SCH (22:04)
[2020-10-06] MEDS: HYDROCORTISONE ACETATE 25 MG SUPP PR SCH (22:04)
[2020-10-06] MEDS: ONDANSETRON INJ 2 MG/ML 2 ML VIAL IV PRN (22:04)
[2020-10-06] MEDS: HEPARIN SODIUM/DEXTROSE 25,000 UNITS/500 ML BAG IV SCH ×2 (23:13→23:14)
[2020-10-07] MEDS: buPROPion SR 100 MG TABCR PO SCH (05:56)
[2020-10-07] MEDS: ADVANCED PROBIOTIC 1250 MG CAPSULE PO SCH (05:56)
[2020-10-07 06:20] LABS: Hematocrit (blood only) 27.8 % (37-47); Hemoglobin 8.6 g/dL (12.0-16.0); Mean Corpuscular Hemoglobin 30.4 pg (25-34); Mean Corpuscular Hgb Conc 30.9 g/dL (32-36); Mean Corpuscular Volume 98.2 fL (80-100); Mean Platelet Volume 10.9 fL (7.4-10.4); Platelet Count 251 K/uL (130-400); RDW Coefficient of Variation 18.5 % (11.5-14.5); RDW Standard Deviation 66.9 fL (36.4-46.3); Red Blood Count 2.83 M/uL (4.2-5.4); White Blood Count 5.78 K/uL (4.8-10.8)
[2020-10-07 06:26] LABS: INR 2.4 (0.9-1.1); Partial Thromboplastin Ratio 1.2; Partial Thromboplastin Time 32.2 Seconds (21.0-31.0); Prothrombin Time 24.6 Seconds (9.0-12.0)
[2020-10-07 06:45] LABS: BUN Creatinine Ratio 21.6 (10-20); Calcium 7.7 mg/dl (8.5-10.1); Creatinine Clr Calc Pharmacy 42.5 ml/min; Est GFR (African American) 45.8; Est GFR (Non-African American) 39.6; Potassium 4.3 mmol/L (3.5-5.1)
[2020-10-07] MEDS: oxyCODONE HCL IR 5 MG TAB (IMMEDIATE RELEASE) PO PRN (07:32)
[2020-10-07] MEDS: PANTOprazole 40 MG in SYRINGE 0 ML IV SCH (07:34)
[2020-10-07] MEDS: OXYBUTYNIN CHLORIDE 5 MG TAB PO SCH (07:36)
[2020-10-07] MEDS: CHOLECALCIFEROL 1,000 UNITS 25 MCG TAB PO SCH (07:36)
[2020-10-07] MEDS: allopurinoL 100 MG TAB PO SCH (07:36)
[2020-10-07] MEDS: FUROSEMIDE 40 MG TAB PO SCH (07:37)
[2020-10-07] MEDS: busPIRone 5 MG TAB PO SCH (07:37)
[2020-10-07] MEDS: CALCIUM 600MG + VIT D 400 IU TAB PO SCH (07:37)
[2020-10-07] MEDS: POTASSIUM CHLORIDE 10 MEQ TABCR PO SCH (07:38)
[2020-10-07] MEDS: MULTIVITAMIN CHEWABLE TAB PO SCH (07:39)
[2020-10-07] MEDS: METOPROLOL SUCC 25MG EXT REL TAB PO SCH (07:39)
[2020-10-07] MEDS: NYSTATIN POWDER 15GM BTL EXT SCH (07:42)
[2020-10-07 08:15] VITALS: PULSE 67; TEMP 97.7; O2SAT 96
[2020-10-07] MEDS ORDERED: CEFEPIME 2,000 MG in SYRINGE 0 ML IV STA (09:25)
[2020-10-07 09:55] VITALS: BP 102/58
--- NOTE | 2020-10-07 10:11 | Discharge Summary ---
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 coli sepsis secondary to obstructive uropat hy/renal lithiasis requiring left ureteral stenting who presents to ED secondary to weakness x2 days. Of significance patient was to undergo ureteroscopy today by Dr. Pabon secondary to persistent renal lithiasis, but opted to present to ED secondary to weakness. Of significance patient is wheelchair-bound secondary to chronic left hip prosthetic joint infection and typically she is able to tra nsfer on her own. Over the last 2 days she has been unable to do so and is much more weak diffusely. She also admits to having diarrhea 1 episode daily associated with bleeding. Bleeding is intermittent when it does occur described as clotting. Blood is bright red. She does complain of anal pain and has been following with GI. She has had recent fever, chills, sweats, lightheadedness, dizziness, chest pain, cough, shortness of breath, nausea, vomiting, dysuria, increased urgency or frequency with urination. She does admit to crampy abdominal pain associated with bowel movement. She states all symptoms occur with bowel movement. She has been taking antibiotics secondary to UTI and for upcoming procedure. She also elicits to being on Lovenox bridge due to procedure today. Last dose of Lovenox was yesterday morning. She also admits to dropping iron skillet on left leg and developing skin tear. She states leg is more red and swollen than usual. In ED patient remained hemodynamically stable. She did not meet SIRS or sepsis criteria. Lab abnormalities notable for WBC 14.4k, H&H 9.5 and 29.6, platelet 235, INR 1.5, K3.3, BUN 50, creatinine 1.59, urinalysis positive for nitrites and leukocyte esterase. Chest x-ray negative acute abnormality. CT abdomen pelvis pending. She was seen and evaluated by urology in ED. The pending results of CT if stone still present she is going to go to OR for stent placement. Admission Exam Per Admitting Provider Constitutional: Chronically ill-appearing female, limited by mobility, vitals as above, NAD, sitting up in bed, pleasant, conversing easily Head: Normocephalic, Atraumatic Eyes: PERRL, conjunctivae normal, anicteric sclerae ENMT: external ear and nose normal, oropharynx normal Neck: trachea midline, no thyromegaly normal visual inspection Respiratory: normal respiratory effort, lungs clear to auscultation, no wheeze, rales, rhonchi. Normal insp/exp effort, no accessory muscle use Cardiovascular: RRR, harsh 3/6 JAMAL noted best RUSB, b/l lower ext edema with erythema L > R, L pretibial skin tear with surrounding erythema, distal pulses +1 Vessels: no JVD or carotid bruit Chest: normal inspection of chest Abdomen: normal bowel sounds, soft, nontender, no hepatosplenomegaly Musculoskeletal: no cyanosis or clubbing, extremities motor strength 5/5 Skin: ecchymosis to b/l upper ext L > R, warm and dry normal turgor Neurologic: PERRL, EOMI, accommodation nl, no face palsy, no dysarthria CN's II-XI intact bilaterally and moves all extremities Psychiatric: A+Ox3, euthymic affect Lymphatic: no cervical or axillary lymphadenopathy : deferred Principal Diagnosis Ureteral calculi Rectal bleeding Acute on chronic renal failure Urinary tract infection Left leg cellulitis Discharge Exam Constitutional + well hydrated and + obese; no acute distress Eyes PERRL, conjunctivae normal, anicteric sclerae ENMT external ear and nose normal, oropharynx normal Respiratory normal respiratory effort, lungs clear to auscultation Cardiovascular Rate/Rhythm: regular rate and regular rhythm Gastrointestinal (Abdomen) normal bowel sounds, soft, nontender, no hepatosplenomegaly Neurologic PERRL, EOMI, accommodation nl, no face palsy, no dysarthria Psychiatric A+Ox3, euthymic affect Discharge Data Allergies Allergy/AdvReac Type Severity Reaction Status Date / Time adhesive Allergy Intermediate BLISTERS Verified 09/27/20 07:42 WITH STERI-STRIPS Iodinated Contrast Media Allergy Intermediate hive Verified 09/27/20 07:42 [Iodinated Contrast- Oral and IV Dye] naproxen Allergy Intermediate SWELLING - Verified 09/27/20 07:42 TOLERATES ESTEVES-[address] HALL ciprofloxacin Allergy Mild RASH Verified 09/27/20 07:42 Quinolones Allergy Mild NEUROLOGIC Verified 09/27/20 07:42 SYMPTOMS Consultations 09/27/20 12:34 ED Decision to Admit Stat 09/27/20 12:57 Consult Urology Routine 09/27/20 16:24 Consult Case Management - Discharge Planning Routine 09/28/20 14:46 Consult Gastroenterology Routine Procedures Performed Operation Date: 09/27/20 14:00 Actual Procedures p Cystoscopy and Left Ureteral Stent Insertion(Left) - Chad Pabon MD Operation Date: 09/29/20 15:30 <No data on this case meets the specified criteria> Operation Date: 10/04/20 10:45 Actual Procedures p Colonoscopy Biopsy Cytology(Not Applicable) - Amanda Vicente DO Ordered Studies 09/27/20 12:33 CT abd pelvis wo con Stat Lung bases: The heart is normal in size and without pericardial effusion. The coronary arteries and mitral annulus are densely calcified. There is a moderate hiatal hernia. There is trace left pleural effusion and bibasilar scarring/atelectasis. Liver: The unenhanced liver is normal in size, contour, and attenuation. There is no intrahepatic biliary ductal dilatation. Gallbladder: There are numerous tiny calcified gallstones with no CT evidence of acute cholecystitis. Spleen: Normal in size and attenuation. A 1.8 cm splenic hypodensity seen on image #79 is unchanged and of doubtful significance. Pancreas: The unenhanced pancreas is atrophic and grossly unremarkable. Adrenal glands: Bilateral adrenal adenomas measure up to 2.2 cm. Kidneys: The unenhanced kidneys are atrophic. 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 There are numerous small distal left ureteral calculi the pelvis seen on images #[id number] through #[id number]. This is suboptimally assessed due to significant streak artifact from the hip arthroplasty. The largest fragments measure up to at least 5 mm. These terminates just above the vesicoureteral junction and causes moderate left hydroureteronephrosis. There is hydronephrosis of both the upper and lower pole moieties. Additional small fragments are seen in the interpolar left kidney. Question a punctate nonobstructing right renal calculus. There is no right-sided hydronephrosis. Scattered renal cysts and indeterminate cortical hypodensities measure up to 1.6 cm in diameter. Abdominal vasculature: The abdominal aorta is normal in course and caliber noting advanced atherosclerotic calcification. An IVC filter is in place. Bowel: Postoperative change is noted involving the stomach. There is also postoperative change from left colonic resection. A small bowel anastomosis is noted in the left lower quadrant. There is mild diverticulosis of the remaining colon without CT evidence of acute diverticulitis. There is mild colonic fecal retention. No bowel obstruction is seen. The appendix is not visualized. Peritoneum: There is no intraperitoneal free air or abdominal ascites. Postoperative change is noted in the ventral abdominal wall. Lymphadenopathy: None. Pelvic viscera: Evaluation of the pelvis is degraded by streak artifact from a right hip arthroplasty. The bladder is decompressed. The bladder wall is thickened and trabeculated. There are numerous small bladder diverticula. Mild pericystic stranding is noted. The uterus and adnexa are normal as imaged. Skeletal structures: The skeletal structures are osteopenic. There is advanced lumbosacral spondylosis and mild scoliosis. No lytic or blastic lesions are seen. A right hip arthroplasty is in place. There are healed left-sided rib fractures. There is advanced chronic deformity of the left hip with destruction of the left femoral head and surrounding bursal fluid. There is dorsal dislocation of the proximal femur. Soft tissues: There is body wall edema. IMPRESSION: 1. There are numerous obstructing calculi/Steinstrasse seen in the distal left ureter above the vesicoureteral junction. Fragments measure up to at least 5 mm, and this causes moderate left-sided hydroureteronephrosis. 2. Note that there is duplication of the left renal collecting system and at le ast partial duplication of the left ureter. 3. Additional tiny fragments/punctate calculi are suggested in both kidneys. 4. Postoperative change is noted involving the stomach, colon, and small bowel. There is no bowel obstruction. 5. Chronic destructive change and deformity/dislocation is again seen in the left hip. 6. Cholelithiasis. 7. The bladder wall is thickened and trabeculated and there are numerous small bladder diverticula. The appearance suggests neurogenic bladder or chronic outlet obstruction. Correlation with clinical findings and urinalysis will be required. 8. Additional findings as above. 09/28/20 14:46 US venous doppler UE LT Stat The left internal jugular vein is patent. There is normal flow within the left subclavian vein. There is normal flow and compressibility within the left axillary, basilic, brachial, radial, ulnar, and visualized cephalic veins. IMPRESSION: No DVT within the left upper extremity. 10/02/20 08:10 CT abd pelvis wo con Stat FINDINGS: Lower chest: There are small bilateral pleural effusions with basilar atelectatic changes. There is new right lower lobe tree-in-bud nodularity suggestive of a infectious process. There is a hiatal hernia Liver: The unenhanced liver is normal in size, contour, and attenuation. There is no intrahepatic biliary ductal dilatation. Gallbladder: Mildly distended. No calculi are visualized. Spleen: There is a stable 12 mm splenic hypodensity. Pancreas: Unremarkable. Adrenal glands: There is bilateral low density adrenal gland thickening suggestive of adenomatous hyperplasia Kidneys: There are nonobstructing left renal calculi. There are low-density left renal lesions likely representing cysts. There is mild fullness of the left renal collecting system and left ureter. There is an indwelling double pigtail left sided nephroureteral stent. There is a tiny distal left ureteral calculus. No right ureteral calculi are visualized Bowel: There are no transition zones to indicate bowel obstruction. There is stool and fluid within the colon. Postsurgical changes involve the sigmoid colon. There is mild nonspecific rectosigmoid wall thickening. Peritoneum: There is no intraperitoneal free air or abdominal ascites. There are postsurgical changes of a prior mesh hernia repair. There is no evidence of retroperitoneal hemorrhage. Vasculature: There is no evidence of abdominal aortic aneurysm. There is an indwelling vena cava filter. Adenopathy: None. Pelvic viscera: There is a joint Ramírez catheter. There is gas in the bladder likely iatrogenic. The pelvis is partially obscured due to beam hardening artifact from a right hip arthroplasty Skeletal structures: There is marked left psoas and left hip muscular atrophy. There is chronic subluxation destructive changes involving the left proximal femur. There is a left hip joint effusion. IMPRESSION: 1. No evidence of bowel obstruction. No evidence of free air 2. No evidence of retroperitoneal hemorrhage 3. Small bilateral pleural effusions and basilar atelectasis. In addition there are new tree-in-bud opacities within the right lower lobe, likely infectious 4. Left-sided nephrolithiasis. Indwelling double pigtail left sided nephroureteral stent 5. Tiny distal left ureteral calculus. Decreased ureteral stone burden as compared with the prior study 6. Chronic destructive changes involving the left hip with a chronic dislocation. CT head/brain wo con Stat No acute intracranial hemorrhage, midline shift, intracranial mass, hydrocephalus, territorial ischemia or abnormal extra-axial collection. Age- related involutional changes. Confluent white matter hypodensities suggest chronic microvascular ischemic disease. Hypodensities of the left lentiform nucleus measure up to 6 mm. Cerebral vascular calcifications. Linear calcifications of the left thalamus also noted. The calvarium is intact. Mastoid air cells are clear. Minimal polypoid mucosal thickening of the maxillary sinuses. Soft tissues and orbits are unremarkable. IMPRESSION: 1. No acute intracranial hemorrhage or acute territorial infarct. 2. Age-related involutional changes with chronic microvascular ischemic disease. 3. Age-indeterminate likely chronic subcentimeter lacunar infarct of the left lentiform nucleus. 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 coli sepsis secondary to obstructive uropathy/renal lithiasis requiring left ureteral stenting who presents to ED secondary to weakness x2 days. (1) Weakness: (2) Calculus, ureteral: Acute renal failure, on CKD stage III CT A/P showed numerous obstructing calculi/Steinstrasse seen in the distal left ureter above the vesicoureteral junction. Fragments measure up to at least 5 mm, and this causes moderate left-sided hydroureteronephrosis. Status post cystoscopy with left ureteral stent placement Stable after procedure Creatinine improved from peak of 1.8 and trended down. Was 1.33 today Continue monitoring Will follow up with Urology outpatient for definitive stone treatment (3) Acute UTI: Recent urine culture + e.coli Urine culture on admission grew Morganella (resistant to multiple antibiotics) and E. coli Completed 7 day cefepime therapy (4) Infected Wound, Cellulitis of left leg: Wound culture grew Pseudomonas Healing well Treated with cefepime as well. Completed therapy (5) Hematochezia Possible lower GI bleed Colonoscopy January 12, 2020 reveals diverticulosis, internal hemorrhoids Hemoglobin 9.5--> decreased but remained stable around 8. Hb was 8.6 today Was evaluated by GI Had colonoscopy on 10/04/20. Discussed with Dr Vicente. Had mild congested and erythematous mucosa in recto-sigmoid colon with biopsies takes. Colon prep was inadequate Has not had any more bleeding since admission Reported diarrhea daily x 1 month C. difficile gene positive, toxin negative (6) Chronic diastolic heart failure: (7) Aortic stenosis, severe: (8) Apical ballooning syndrome: Chronic diastolic CHF with apical ballooning syndrome on 06/2020 echo Severe calcific aortic stenosis -work up In progress Lasix initially held for elevated creatinine Lasix has been resumed at 40mg daily Patient's lasix dose with recently increased by Cardiology the week before admission. However patient discharged on current dose of lasix 40mg daily due to SELWYN on CKD3. To get BMP in 3 days to monitor Cr and follow up result with PCP and Cardiology (9) CKD (chronic kidney disease), stage III: Creatinine improved from 1.8, trended down. Cr is 1.33 today Check BMP in 3 days to monitor Cr (10) Anemia: On 09/25/2020 H&H was 11.1 She does receive vitamin B12 injections in setting of history of gastric bypass Iron studies 07/27/2020 revealed ferritin 3476, iron 52, transferrin saturation 23, TIBC 230 Hb trended down and has been stable in 8s Last cspope 01/2020 showed sigmoid divertic, int hemorrhoids - on anusol Warfarin was initially held while being prepped for colonoscopy and was on heparin drip No hematochezia since admission. FOBT negative Warfarin resumed with Heparin bridge. INR now therapeutic (11) Factor 5 Leiden mutation, heterozygous: History of recurrent DVT/PE, [place] filter in place Prior to admission was on Lovenox bridge, last dose a.m. of 09/26 for procedure on 09/27 Was on heparin while being for procedure and colonoscopy and warfarin held Warfarin resumed afterwards with heparin bridge INR is now therapeutic 2.4 today Continue home dose of of 2 mg Friday and Friday and 4 mg all other days Check INR in 3 days and follow up management with Anticoagulation clinic (12) Wheelchair dependence: Patient with chronic left prosthetic hip infection and is wheelchair dependent At baseline she is able to do self transfers Was evaluted by PT/OT. Rehab was recommended but Patient declined and wanted discharge home Home health services arranged (13) NICOLASA on CPAP: CPAP at HS Total Time Total Time Spent Total Time Spent (In Minutes): 50 Total Time Includes: Examination of the Patient, Discharge Planning and Medication Reconciliation Discharge Plan Discharge Items Patient Disposition: Home - Home Health Services Reason For Visit: E. COLI UTI, CELLULITIS, Rectal Bleeding Discharge Diagnosis: Ureteral calculi Rectal bleeding Acute on chronic renal failure Urinary tract infection Left leg cellulitis Activity: As commented below Activity Comment: As instructed by PT Non-emergency contact: Primary Care Provider, [place] [facility] and Urologist Call non-emergency contact if: you have any medication questions and your symptoms worsen Follow-up/Referrals: Chad Pabon MD [Physician] - Sadi Shea DO [Primary Care Provider] - Diet: Heart Healthy and Low Sodium (2gm) Fluids: 2000ml (8 cups) Ambulatory Orders: Basic Metabolic Panel (Routine) Timeframe: 3 Days Location: Determined by Patient Ordered By: Anuja Iqbal Prothrombin Time INR (Routine) Timeframe: 3 Days Location: Determined by Patient Ordered By: Anuja Iqbal Addtl Attending Provider Instructions: Ms Liang. You came to the hospital complaining of weakness You were evaluated and found to multiple kidney stones, urinary tract infection. You had stents placed by the urologist. You completed antibiotics for the urinary tract infection. He also reported rectal bleeding. You were evaluated by gastroenterology and had an incomplete colonoscopy due to poor prep. The rectal bleeding has resolved. Your warfarin had to be held prior to colonoscopy requiring heparin and warfarin bridge. Warfarin was resumed after colonoscopy and your INR is within normal range. Due to worsening renal function, your Lasix was held briefly and later resumed. You were evaluated by physical therapy and some rehab recommended but you want to go home. You are being discharged home with home health services. Please continue to take all your medications as prescribed. Your Lasix was reduced to 40 mg daily. Please do the lab test basic metabolic panel in 3 days. Follow-up results with your primary doctor and pattern cutter. It is very important that you follow-up with urology in the office for continued management of your kidney stones. Please do your INR in 3 days and follow-up with anticoagulation clinic It is a pleasure taking care of you Pending Studies at Discharge: No Stand-Alone Forms: My [facility] [place], Smoking Cessation Medications and DC Order Prescriptions: Continued Flintstones Complete Tablet,Chewable 1 tab PO QAM RF: 0 calcium carbonate [Tums Extra Strength Smoothies] 300 mg (750 mg) Tablet,Chewable 750 mg PO UD PRN (Reason: Heartburn) RF: 0 omeprazole 20 mg Tablet,Delayed Release (Dr/Ec) 20 mg PO QAM RF: 0 nystatin 100,000 unit/gram powder 1 appln TOP BID PRN (Reason: rash) RF: 0 atorvastatin 40 mg Tablet 40 mg PO PM RF: 0 oxybutynin chloride 5 mg Tablet 5 mg PO BID RF: 0 bupropion HCl [Wellbutrin SR] 200 mg Tablet Sustained-Release 12 Hr 200 mg PO BID RF: 0 cholecalciferol (vitamin D3) [Vitamin D3] 50 mcg (2,000 unit) Tablet 2,000 unit PO QAM RF: 0 calcium carbonate-vitamin D3 [Calcium 600 with Vitamin D3] 600 mg(1,500mg) - 500 unit Capsule 1 cap PO BID RF: 0 oxycodone [Roxicodone] 5 mg Tablet 5 mg PO Q4 PRN (Reason: Pain) RF: 0 buspirone 5 mg Tablet 5 mg PO TID RF: 0 ascorbic acid (vitamin C) [Vitamin C] 250 mg Tablet 250 mg PO BID RF: 0 ondansetron 4 mg Tablet,Disintegrating 4 mg PO Q8H PRN (Reason: Nausea) RF: 0 allopurinol 100 mg Tablet 100 mg PO BID RF: 0 duloxetine [Cymbalta] 20 mg Capsule,Delayed Release(Dr/Ec) 40 mg PO HS RF: 0 cyanocobalamin (vitamin B-12) 1,000 mcg/mL Kit 1,000 mcg IM UD RF: 0 potassium chloride [K-Tab] 10 mEq tablet extended release 10 meq PO QAM RF: 0 Probiotic 3 billion cell Capsule 3,000 mmu cells PO QAM RF: 0 warfarin 4 mg tablet 4 mg PO SUMOWETHSA RF: 0 warfarin 4 mg Tablet 2 mg PO TUFR RF: 0 hydrocortisone acetate [Anusol-HC] 25 mg suppository 25 mg IN HS Qty: 24 RF: 0 furosemide [Lasix] 40 mg tablet 40 mg PO QAM RF: 0 metoprolol succinate 25 mg Tablet Extended Release 24 Hr 12.5 mg PO BID RF: 0 Discontinued furosemide 40 mg Tablet 40 mg PO MOTUWETH RF: 0 furosemide 20 mg Tablet 20 mg PO SUFRSA RF: 0 enoxaparin [Lovenox] 80 mg/0.8 mL Syringe 80 mg SUBCUT Q12H RF: 0 cefdinir 300 mg capsule 300 mg PO BID 10 Days Qty: 19 RF: 0 Discharge Orders: Discharge Order (Routine); Ordered 10/07/20 Ordered By: Anuja Iqbal Admission Data Admit Date/Time: 09/28/20 19:49 Attending Provider: Anuja Iqbal I. Admit Provider: Pablito Evans Primary Care Provider: Sadi Shea Other Providers: Edgardo Lema ; Chad Pabon ; [facility],Home Healthcare ; Alex Azar ; Pablito Evans Other Interventions: Discharge Summary Assessment (RN) Last Done: 10/07/20 09:54
[2020-10-07] MEDS ORDERED: WARFARIN SOD 4 MG TAB PO SCH (16:00)
--- NOTE | 2020-10-12 09:40 | Coding Query ---
CODING QUERY To promote full compliance with coding requirements relating to patient care, provider participation is requested in all cases of electronic equipment maint tech uncertainty. Please assist us with the question(s) below: Coding Question(s): There is documentation in the record, including the Discharge Summary of , "Reported diarrhea daily x 1 month C. difficile gene positive, toxin negative". Please specify below, in your clinical opinion. ( ) This is diarrhea caused by C-Difficile treated during this admission ( ) This is NOT C-Difficile ( x ) This is Other: Please Specify__This is not diarrhea caused by C diff Physician's Response(s): Thank you Leelee Lucas Principal Diagnosis: "that condition established after study, to be chiefly responsible for occasioning the admission of the patient to the hospital for care." Co-Existing Principal Diagnosis: "when two or more diagnoses equally meet the criteria for principal diagnosis as determined by the circumstances of admission, diagnostic work up, and/or therapy provided, and the Alphabetic Index, Tabular List, or another coding guideline does not provide sequencing direction, any one of the diagnoses may be sequenced first." "When the physician has documented what appears to be a current diagnosis in the body of the record, but has not included the diagnosis in the final diagnostic statement, the physician should be asked whether the diagnosis should be added." (Source Coding Clinic 2 QTR90. p3-4) [facility]
--- NOTE | 2020-10-12 09:43 | Coding Query ---
To promote full compliance with coding requirements relating to patient care, provider participation is requested in all cases of residential child care counselor uncertainty. Please assist us with the question(s) below: Coding Question(s): The diagnosis(es) below was documented in the COMMUNICATION NOTE ON 10/01/20, then subsequently fell off all further documentation. Please indicate if it is still a possible diagnosis or ruled out. Physician's Response(s): RULE OUT RETROPERITONEAL BLEED GIVEN ONGOING IV ANTICOAGULATION ( ) Diagnosed ( ) Ruled out ( x ) Other (please specify) Patient does not have retroperitoneal bleed. Ref[facility] CT [facility] and [facility]
--- NOTE | 2020-10-12 09:51 | Coding Query ---
CODING QUERY To promote full compliance with coding requirements relating to patient care, provider participation is requested in all cases of purchase analyst uncertainty. 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 Please specify below in your clinical opinion, regarding Volume Overload. ( x ) Volume Overload is due to Chronic Diastolic CHF - Not Exacerbated ( ) Volume Overload is due to Other: Please Specify ( ) Volume Overload is due to unknown etiology Physician's Response(s): Thank you Leelee Lucas Principal Diagnosis: "that condition established after study, to be chiefly responsible for occasioning the admission of the patient to the hospital for care." Co-Existing Principal Diagnosis: "when two or more diagnoses equally meet the criteria for principal diagnosis as determined by the circumstances of admission, diagnostic work up, and/or therapy provided, and the Alphabetic Index, Tabular List, or another coding guideline does not provide sequencing direction, any one of the diagnoses may be sequenced first." "When the physician has documented what appears to be a current diagnosis in the body of the record, but has not included the diagnosis in the final diagnostic statement, the physician should be asked whether the diagnosis should be added." (Source [facility] 2 QTR90. p3-4) [facility]
== END 2020-10-07 15:06 | disposition home health service (06) | DRG 660 ==
LOC: ED 07:07 → 2N 13:55 → ASU 13:55 → SUATTDRO 13:56

== ENCOUNTER 2020-12-01 13:11 | Inpatient (IN) ==
[2020-12-01] MEDS ORDERED: SODIUM CHLORIDE 0.9% 500 ML IV STA (13:54)
[2020-12-01] MEDS ORDERED: CEFEPIME 2,000 MG/20 ML VIAL IV STA (14:02)
--- NOTE | 2020-12-01 14:02 | Emergency Department Note ---
History of Present Illness General Chief complaint: Abdominal Pain Stated complaint: Recurrent UTIs Time Seen by Provider: 12/01/20 13:43 Source: patient History of Present Illness Provider complaint: Abdominal pain Onset (ago): month(s) Location: abdomen and left Radiation: back (Lower) Severity: moderate Pain Consistency: + intermittent Maximum Pain Intensity: 5 Quality: + other (Cramping) Relieved By: + none Associated symptoms: + nausea/vomiting (Vomiting 2 days ago) and + other (No BM for 5 days; burning on urination); no chest pain, no cough, no fever/chills, no headaches and no shortness of breath This is a 75-year-old female with a history of recurrent UTIs and kidney stones presenting with abdominal pain since June of last year. The patient states that her pain is intermittent. She describes it as cramping. She believes it is due to a UTI. No alleviating factors. The pain does radiate to her lower back. She rates it a 5 out of 10 in severity. She did have an episode of vomiting 2 days ago and states that she has not had a bowel movement in 5 days. She was previously admitted to [facility] where she had her kidney stents removed. She was told recently that she had a culture from the which grew out multidrug-resistant bacteria and the recommendation was admission for IV antibiotics. She still has burning on urination. She denies any fever, chills, cough or cold symptoms, chest pain, shortness of breath or known exposure to COVID-19. She did have a negative Covid test last month when she was at [facility]. Home Medications Medication Instructions Recorded Confirmed Type allopurinol 100 mg PO BID 06/23/19 12/01/20 History buspirone 5 mg PO TID 06/23/19 12/01/20 History cyanocobalamin (vitamin B-12) 1,000 mcg IM UD 06/23/19 12/01/20 History duloxetine [Cymbalta] 40 mg PO HS 06/23/19 12/01/20 History ondansetron 4 mg PO Q8H PRN 06/23/19 12/01/20 History oxycodone [Roxicodone] 5 mg PO Q4 PRN 06/23/19 12/01/20 History Flintstones Complete 1 tab PO QAM 08/27/19 12/01/20 History atorvastatin 40 mg PO PM 12/31/19 12/01/20 History bupropion HCl [Wellbutrin SR] 200 mg PO BID 12/31/19 12/01/20 History calcium carbonate [Tums Extra 750 mg PO UD PRN 12/31/19 12/01/20 History Strength Smoothies] nystatin 1 appln TOP BID PRN 12/31/19 12/01/20 History omeprazole 20 mg PO QAM 12/31/19 12/01/20 History oxybutynin chloride 5 mg PO BID 12/31/19 12/01/20 History Probiotic 3,000 mmu cells PO QAM 06/21/20 12/01/20 History potassium chloride [K-Tab] 10 meq PO QAM 06/21/20 12/01/20 History warfarin 2 mg PO DAILY 08/01/20 12/01/20 History furosemide [Lasix] 40 mg PO QAM 09/25/20 12/01/20 History metoprolol succinate 12.5 mg PO BID 09/25/20 12/01/20 History phenazopyridine [Pyridium] 200 mg PO Q8H PRN #10 tab 10/16/20 12/01/20 Rx Allergies Allergy/AdvReac Type Severity Reaction Status Date / Time adhesive Allergy Intermediate BLISTERS Verified 12/01/20 15:55 WITH STERI-STRIPS Iodinated Contrast Media Allergy Intermediate hive Verified 12/01/20 15:55 [Iodinated Contrast- Oral and IV Dye] naproxen Allergy Intermediate SWELLING - Verified 12/01/20 15:55 TOLERATES ESTEVES-[address] HALL ciprofloxacin Allergy Mild RASH Verified 12/01/20 15:55 Quinolones Allergy Mild NEUROLOGIC Verified 12/01/20 15:55 SYMPTOMS Past Med/Surg History Medical History Aortic stenosis, severe PAULY 0.62-0.66 cm2 per 08/31/2020 echo. Patient seen by [facility] valve clinic 08/14/20 for possible TAVR, workup initiated with repeat echo, but patient subsequently admitted to [facility] again for urologic issues. 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 Per cardiology consult , "Only mild left ventricular dysfunction and suspect stress mediated etiology rather than acute ischemic event. Patient on appropriate beta-sheryl therapy." Apical wall motion abnormality resolved on 08/04/20 ECHO Atrial fibrillation follows with Michael Garciaardo> NO PACER Bleeding hemorrhoids Carotid artery stenosis [place] , 50%, LICA 50-69% by 04/09/19 doppler Chronic diastolic heart failure CKD (chronic kidney disease), stage III Degenerative disc disease Depression Dyslipidemia Factor 5 Leiden mutation, heterozygous recurrent PE/DVT; status post IVC filter placement, on Coumadin Frequent UTI RECENT HOSPITALIZATION GERD (gastroesophageal reflux disease) Leming filter in place History of COPD "MILD" History of esophageal disorder esophageal diverticulum History of peripheral neuropathy bilateral feet History of stress incontinence Hx of cancer of uterus diagnosed 03/2019---radiation only Hx of gout Hx of iron deficiency anemia Hypertension Intestinal disorder post op malabsorption Non-ST elevation CO (NSTEMI) In setting of acute illness (urosepsis 2/2 obstructing stone) 06/21/20 On anticoagulant therapy warfarin daily NICOLASA on CPAP Pes planus Post traumatic stress disorder Pulmonary embolism hx of bilateral ~2002 2/2 FFL Sleep apnea CPAP Spinal stenosis Stroke 06/03/2019 after I&D left hip--vision loss in left eye--no neurologist Vision abnormalities r peripheral vision loss( posterior ischemic optic neuropathyleft eye), left side altered vision like looking through a screen door Weakness Wheelchair dependence Surgical History H/O cystoscopy 06/23/20 and 07/20/20 [facility] History of arthroplasty of left hip 2006 @ [facility]--infected after, multiple sx's History of biopsy of bladder benign History of colonoscopy with polypectomy History of incision and drainage 05/2019 of left hip History of left hip replacement 03/2019 @ [facility] [place] History of left shoulder replacement History of right hip replacement 2005 @ [facility] History of tonsillectomy and adenoidectomy History of tooth extraction Hx of gastric bypass 2016 Hx of tubal ligation Hx of umbilical hernia repair mesh inserted S/P colon resection 1984 @ [facility] complete sigmoid removed d/t diverticular disease Family History Mother , age 91 Heart disease Family hx colonic polyps Father , age 42 Factor V deficiency Myocardial infarction Sister No problems noted. Sister Endometrial cancer Brother Family hx colonic polyps Brother , age 50 Meningitis Brother No problems noted. Brother No problems noted. Son No problems noted. Son No problems noted. Son Colon abnormality Son , in his 30 `s , " girl friend over dosed the patients son " Drug overdose Grandfather (Paternal) Family history of diabetes mellitus Family hx of colon cancer Other No family history of adverse response to anesthesia Social History Smoking Status: Former smoker Age Started Using Tobacco: 22; packs per day: 0.5; Years Smoked: 25; Second Hand Exposure: Yes (parents smoked/ smoked); Hx Alcohol Use: No Hx Substance Use: No Preferred Language: Senegalese Communication Ability: Effective Visual Impairment: No Limitations Hearing Ability: Normal Control Panel Operator Required: No Beliefs That Will Affect Care: None marital status: / Current Living Situation: Family Current Living Situation Comment: Lives w/ son current occupational status: retired 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 and A total of 10 systems reviewed and were otherwise negative Physical Exam Vital Signs Vital Signs - 24 hr 12/01/20 13:19 12/01/20 13:30 12/01/20 14:00 Temperature 36.9 C Temperature Source Oral Pulse Rate 87 82 83 Pulse Rate from SpO2 Sensor 82 83 Respiratory Rate 12 14 14 Blood Pressure 142/78 H 131/82 121/86 Blood Pressure Mean 99 98 97 Pulse Oximetry 94 97 98 Oxygen Delivery Method Room Air Room Air Room Air Sepsis Recent Fever Within 48 Hours No Sepsis New/Unexplained Change in Mental Status No Sepsis Action Taken by Nursing No Action Required 12/01/20 14:39 12/01/20 14:40 12/01/20 15:00 Temperature Temperature Source Pulse Rate 84 82 85 Pulse Rate from SpO2 Sensor 84 82 Respiratory Rate 20 19 17 Blood Pressure 130/73 Blood Pressure Mean 92 Pulse Oximetry 97 96 Oxygen Delivery Method Room Air Room Air Sepsis Recent Fever Within 48 Hours Sepsis New/Unexplained Change in Mental Status Sepsis Action Taken by Nursing 12/01/20 15:30 12/01/20 16:12 12/01/20 16:30 Temperature Temperature Source Pulse Rate 85 91 H 86 Pulse Rate from SpO2 Sensor Respiratory Rate 17 16 16 Blood Pressure 116/71 Blood Pressure Mean 86 Pulse Oximetry Oxygen Delivery Method Room Air Sepsis Recent Fever Within 48 Hours Sepsis New/Unexplained Change in Mental Status Sepsis Action Taken by Nursing 12/01/20 16:31 12/01/20 17:00 Temperature Temperature Source Pulse Rate 86 102 H Pulse Rate from SpO2 Sensor Respiratory Rate 16 13 Blood Pressure Blood Pressure Mean 108 Pulse Oximetry Oxygen Delivery Method Sepsis Recent Fever Within 48 Hours Sepsis New/Unexplained Change in Mental Status Sepsis Action Taken by Nursing Constitutional: Vital signs reviewed. Eyes: Pupils are equal round reactive to light. Conjunctiva are noninjected. ENT: Pharynx is clear without erythema or exudate. Mucous membranes are dry. Neck supple without meningeal signs. Respiratory: Clear to auscultation bilaterally. Breath sounds are equal bilaterally. Cardiovascular: Regular rate and rhythm. No rubs or gallops. GI: Soft, nondistended with suprapubic and left lower quadrant tenderness. No guarding. Bowel sounds are present. Musculoskeletal: Bilateral lower extremity pitting edema. No lower extremity te nderness. No CVA tenderness. Integumentary: No cyanosis. or jaundice. Neurological: The patient is awake and alert. No focal deficits. Psychiatric: Normal affect. Not anxious appearing. Course Administered Medications Sodium Chloride (Nss) 500 mls @ 125 mls/hr IV .Q4H STA Stop: 12/01/20 17:53 Last Admin: 12/01/20 16:20 Dose: 125 mls/hr Documented by: [id number] Discontinued Medications Cefepime HCl (Cefepime 2,000 Mg/20 Ml Vial) Confirm Administered Dose 2,000 mg .ROUTE .[facility] Stop: 12/01/20 16:22 Last Admin: 12/01/20 16:22 Dose: Not Given Documented by: [id number] Cefepime HCl (Maxipime) 2,000 mg in 20 mls @ 5 mls/min IV NOW STA; Protocol Stop: 12/01/20 14:05 Last Admin: 12/01/20 16:21 Dose: 5 mls/min Documented by: [id number] Medical Decision Making Differential Diagnosis Bowel obstruction, constipation, UTI, pyelonephritis, ureterolithiasis, obstructive uropathy, diverticulitis, SELWYN Medical Records Attestation: I reviewed the patient's medical records. I did perform a limited focused review of portions of the patient's old chart on the electronic medical record. The patient was admitted to the hospital in September of last year for SELWYN, UTI, obstructive uropathy, rectal bleeding and l eg cellulitis. Home Medications Current Medication List: was personally reviewed by me Laboratory Data Attestation: I reviewed the patient's lab results. Result diagrams: 12/01/20 16:36 12/01/20 16:36 Lab Results 12/01/20 12/01/20 12/01/20 Range/Units 14:10 14:10 15:10 WBC Cancelled RBC Cancelled Hgb Cancelled Hct Cancelled MCV Cancelled MCH Cancelled MCHC Cancelled RDW Std Deviation Cancelled RDW Coeff of Karla Cancelled Plt Count Cancelled MPV Cancelled Immature Gran % (Auto) Cancelled Neut % (Auto) Cancelled Lymph % (Auto) Cancelled [place] % (Auto) Cancelled Eos % (Auto) Cancelled Baso % (Auto) Cancelled Neut # (Auto) Cancelled Lymph # (Auto) Cancelled [place] # (Auto) Cancelled Eos # (Auto) Cancelled Baso # (Auto) Cancelled Immature Gran # (Auto) Cancelled Absolute Nucleated RBC Cancelled Nucleated RBC % (auto) Cancelled Neutrophils % (Manual) Cancelled Band Neutrophils % Cancelled Lymphocytes % (Manual) Cancelled Prolymphocyte % Cancelled Reactive Lymphs % (Man) Cancelled Monocytes % (Manual) Cancelled Eosinophils % (Manual) Cancelled Basophils % (Manual) Cancelled Metamyelocytes % (Man) Cancelled Myelocytes % (Man) Cancelled Promyelocytes % (Man) Cancelled Blast Cells % (Manual) Cancelled Plasma Cell % (Manual) Cancelled Other Cells % Cancelled Nucleated RBC % Cancelled Neutrophils # (Manual) Cancelled Band Neutrophils # Cancelled Total Absolute Neuts Cancelled Lymphocytes # (Manual) Cancelled Prolymphocyte # Cancelled Reactive Lymphs # Cancelled Total Abs Lymphocytes Cancelled Monocytes # (Manual) Cancelled Eosinophils # (Manual) Cancelled Basophils # (Manual) Cancelled Metamyelocytes # (Man) Cancelled Myelocytes # (Manual) Cancelled Promyelocytes # (Man) Cancelled Blast Cells # (Man) Cancelled Plasma Cell # (Manual) Cancelled Other Cells # Cancelled Nucleated RBCs # (Man) Cancelled Hypersegmented Neuts Cancelled Hyposegmented Neuts Cancelled Hypogranular Neuts Cancelled Large Granular Lymphs Cancelled # Lrg Granular Lymphs Cancelled Hairy Cells Cancelled Smudge Cells Cancelled Toxic Granulation Cancelled Toxic Vacuolation Cancelled Dohle Bodies Cancelled Jean Rods Cancelled Platelet Estimate Cancelled Hypogranular Platelets Cancelled Clumped Platelets Cancelled Giant Platelets Cancelled Platelet Satelliting Cancelled RBC Morphology Cancelled Polychromasia Cancelled Hypochromasia Cancelled Poikilocytosis Cancelled Basophilic Stippling Cancelled Anisocytosis Cancelled Microcytosis Cancelled Macrocytosis Cancelled Spherocytes Cancelled Pappenheimer Bodies Cancelled Sickle Cells Cancelled Target Cells Cancelled Tear Drop Cells Cancelled Ovalocytes Cancelled Stomatocytes Cancelled Rice-Twin Bodies Cancelled Echinocytes Cancelled Acanthocytes (Spur) Cancelled Rouleaux Cancelled RBC Agglutinates Cancelled Schistocytes Cancelled RBC Morph Comment Cancelled Sezary Cell Cancelled PT (9.0-12.0) Seconds INR (0.9-1.1) APTT (21.0-31.0) Seconds PTT Ratio Sodium 136 (136-145) mmol/L Potassium TNP Chloride 105 (98-107) mmol/L Carbon Dioxide 24 (21-32) mmol/L Anion Gap 7.0 (3-11) BUN 40 H (7-18) mg/dl Creatinine 1.67 H (0.6-1.2) mg/dl Est Cr Clr Drug Dosing 32.1 ml/min Est GFR ( Amer) 34.6 Est GFR (Non-Af Amer) 29.8 BUN/Creatinine Ratio 24.2 H (10-20) Glucose 84 (70-99) mg/dl Calcium 8.1 L (8.5-10.1) mg/dl Total Bilirubin 0.3 (0.2-1) mg/dl AST (15-37) U/L ALT 34 (12-78) U/L Alkaline Phosphatase 162 H (45-117) U/L Total Protein 4.9 L (6.4-8.2) gm/dl Albumin 1.9 L (3.4-5.0) gm/dl Globulin 3.0 (2.5-4.0) gm/dl Albumin/Globulin Ratio 0.6 L (0.9-2) Lipase 69 L (73-393) U/L Urine Color Yellow Urine Appearance Turbid A (Clear) Urine pH 8.0 H (4.5-7.5) Ur Specific [place] 1.012 (1.000-1.030) Urine Protein 1+ H (Negative) Urine Glucose (UA) Negative (Negative) Urine Ketones Negative (Negative) Urine Blood 3+ H (Negative) Urine Nitrite Positive A (Negative) Urine Bilirubin Negative (Negative) Urine Urobilinogen Negative (Negative) Ur Leukocyte Esterase 3+ H (Negative) Urine WBC (Auto) >30 H (0-5) /hpf Urine RBC (Auto) 0-4 (0-4) /hpf U Hyaline Cast (Auto) 1-5 (0-5) /lpf U Epithel Cells (Auto) >30 H (0-5) /lpf Urine Bacteria (Auto) 2+ H (Negative) Urine Yeast Not Reportable 12/01/20 12/01/20 12/01/20 Range/Units 15:54 15:54 16:36 WBC Cancelled RBC Cancelled Hgb Cancelled Hct Cancelled MCV Cancelled MCH Cancelled MCHC Cancelled RDW Std Deviation Cancelled RDW Coeff of Karla Cancelled Plt Count Cancelled MPV Cancelled Immature Gran % (Auto) Cancelled Neut % (Auto) Cancelled Lymph % (Auto) Cancelled [place] % (Auto) Cancelled Eos % (Auto) Cancelled Baso % (Auto) Cancelled Neut # (Auto) Cancelled Lymph # (Auto) Cancelled [place] # (Auto) Cancelled Eos # (Auto) Cancelled Baso # (Auto) Cancelled Immature Gran # (Auto) Cancelled Absolute Nucleated RBC Cancelled Nucleated RBC % (auto) Cancelled Neutrophils % (Manual) Cancelled Band Neutrophils % Cancelled Lymphocytes % (Manual) Cancelled Prolymphocyte % Cancelled Reactive Lymphs % (Man) Cancelled Monocytes % (Manual) Cancelled Eosinophils % (Manual) Cancelled Basophils % (Manual) Cancelled Metamyelocytes % (Man) Cancelled Myelocytes % (Man) Cancelled Promyelocytes % (Man) Cancelled Blast Cells % (Manual) Cancelled Plasma Cell % (Manual) Cancelled Other Cells % Cancelled Nucleated RBC % Cancelled Neutrophils # (Manual) Cancelled Band Neutrophils # Cancelled Total Absolute Neuts Cancelled Lymphocytes # (Manual) Cancelled Prolymphocyte # Cancelled Reactive Lymphs # Cancelled Total Abs Lymphocytes Cancelled Monocytes # (Manual) Cancelled Eosinophils # (Manual) Cancelled Basophils # (Manual) Cancelled Metamyelocytes # (Man) Cancelled Myelocytes # (Manual) Cancelled Promyelocytes # (Man) Cancelled Blast Cells # (Man) Cancelled Plasma Cell # (Manual) Cancelled Other Cells # Cancelled Nucleated RBCs # (Man) Cancelled Hypersegmented Neuts Cancelled Hyposegmented Neuts Cancelled Hypogranular Neuts Cancelled Large Granular Lymphs Cancelled # Lrg Granular Lymphs Cancelled Hairy Cells Cancelled Smudge Cells Cancelled Toxic Granulation Cancelled Toxic Vacuolation Cancelled Dohle Bodies Cancelled Jean Rods Cancelled Platelet Estimate Cancelled Hypogranular Platelets Cancelled Clumped Platelets Cancelled Giant Platelets Cancelled Platelet Satelliting Cancelled RBC Morphology Cancelled Polychromasia Cancelled Hypochromasia Cancelled Poikilocytosis Cancelled Basophilic Stippling Cancelled Anisocytosis Cancelled Microcytosis Cancelled Macrocytosis Cancelled Spherocytes Cancelled Pappenheimer Bodies Cancelled Sickle Cells Cancelled Target Cells Cancelled Tear Drop Cells Cancelled Ovalocytes Cancelled Stomatocytes Cancelled Rice-Twin Bodies Cancelled Echinocytes Cancelled Acanthocytes (Spur) Cancelled Rouleaux Cancelled RBC Agglutinates Cancelled Schistocytes Cancelled RBC Morph Comment Cancelled Sezary Cell Cancelled PT 14.6 H (9.0-12.0) Seconds INR 1.4 H (0.9-1.1) APTT 22.6 (21.0-31.0) Seconds PTT Ratio 0.8 Sodium (136-145) mmol/L Potassium 4.4 Chloride (98-107) mmol/L Carbon Dioxide (21-32) mmol/L Anion Gap (3-11) BUN (7-18) mg/dl Creatinine (0.6-1.2) mg/dl Est Cr Clr Drug Dosing ml/min Est GFR ( Amer) Est GFR (Non-Af Amer) BUN/Creatinine Ratio (10-20) Glucose (70-99) mg/dl Calcium (8.5-10.1) mg/dl Total Bilirubin (0.2-1) mg/dl AST 34 (15-37) U/L ALT (12-78) U/L Alkaline Phosphatase (45-117) U/L Total Protein (6.4-8.2) gm/dl Albumin (3.4-5.0) gm/dl Globulin (2.5-4.0) gm/dl Albumin/Globulin Ratio (0.9-2) Lipase (73-393) U/L Urine Color Urine Appearance (Clear) Urine pH (4.5-7.5) Ur Specific [place] (1.000-1.030) Urine Protein (Negative) Urine Glucose (UA) (Negative) Urine Ketones (Negative) Urine Blood (Negative) Urine Nitrite (Negative) Urine Bilirubin (Negative) Urine Urobilinogen (Negative) Ur Leukocyte Esterase (Negative) Urine WBC (Auto) (0-5) /hpf Urine RBC (Auto) (0-4) /hpf U Hyaline Cast (Auto) (0-5) /lpf U Epithel Cells (Auto) (0-5) /lpf Urine Bacteria (Auto) (Negative) Urine Yeast 12/01/20 Range/Units 16:36 WBC 7.57 RBC 4.70 Hgb 13.5 Hct 42.3 MCV 90.0 MCH 28.7 MCHC 31.9 L RDW Std Deviation 58.3 H RDW Coeff of Karla 17.9 H Plt Count 286 MPV 10.7 H Immature Gran % (Auto) 0.1 Neut % (Auto) 83.7 Lymph % (Auto) 11.8 [place] % (Auto) 4.0 Eos % (Auto) 0.3 Baso % (Auto) 0.1 Neut # (Auto) 6.34 Lymph # (Auto) 0.89 L [place] # (Auto) 0.30 Eos # (Auto) 0.02 Baso # (Auto) 0.01 Immature Gran # (Auto) 0.01 Absolute Nucleated RBC Nucleated RBC % (auto) Neutrophils % (Manual) Band Neutrophils % Lymphocytes % (Manual) Prolymphocyte % Reactive Lymphs % (Man) Monocytes % (Manual) Eosinophils % (Manual) Basophils % (Manual) Metamyelocytes % (Man) Myelocytes % (Man) Promyelocytes % (Man) Blast Cells % (Manual) Plasma Cell % (Manual) Other Cells % Nucleated RBC % Neutrophils # (Manual) Band Neutrophils # Total Absolute Neuts Lymphocytes # (Manual) Prolymphocyte # Reactive Lymphs # Total Abs Lymphocytes Monocytes # (Manual) Eosinophils # (Manual) Basophils # (Manual) Metamyelocytes # (Man) Myelocytes # (Manual) Promyelocytes # (Man) Blast Cells # (Man) Plasma Cell # (Manual) Other Cells # Nucleated RBCs # (Man) Hypersegmented Neuts Hyposegmented Neuts Hypogranular Neuts Large Granular Lymphs # Lrg Granular Lymphs Hairy Cells Smudge Cells Toxic Granulation Toxic Vacuolation Dohle Bodies Jean Rods Platelet Estimate Hypogranular Platelets Clumped Platelets Giant Platelets Platelet Satelliting RBC Morphology Polychromasia Hypochromasia Poikilocytosis Basophilic Stippling Anisocytosis Microcytosis Macrocytosis Spherocytes Pappenheimer Bodies Sickle Cells Target Cells Tear Drop Cells Ovalocytes Stomatocytes Rice-Twin Bodies Echinocytes Acanthocytes (Spur) Rouleaux RBC Agglutinates Schistocytes RBC Morph Comment Sezary Cell PT (9.0-12.0) Seconds INR (0.9-1.1) APTT (21.0-31.0) Seconds PTT Ratio Sodium (136-145) mmol/L Potassium Chloride (98-107) mmol/L Carbon Dioxide (21-32) mmol/L Anion Gap (3-11) BUN (7-18) mg/dl Creatinine (0.6-1.2) mg/dl Est Cr Clr Drug Dosing ml/min Est GFR ( Amer) Est GFR (Non-Af Amer) BUN/Creatinine Ratio (10-20) Glucose (70-99) mg/dl Calcium (8.5-10.1) mg/dl Total Bilirubin (0.2-1) mg/dl AST (15-37) U/L ALT (12-78) U/L Alkaline Phosphatase (45-117) U/L Total Protein (6.4-8.2) gm/dl Albumin (3.4-5.0) gm/dl Globulin (2.5-4.0) gm/dl Albumin/Globulin Ratio (0.9-2) Lipase (73-393) U/L Urine Color Urine Appearance (Clear) Urine pH (4.5-7.5) Ur Specific [place] (1.000-1.030) Urine Protein (Negative) Urine Glucose (UA) (Negative) Urine Ketones (Negative) Urine Blood (Negative) Urine Nitrite (Negative) Urine Bilirubin (Negative) Urine Urobilinogen (Negative) Ur Leukocyte Esterase (Negative) Urine WBC (Auto) (0-5) /hpf Urine RBC (Auto) (0-4) /hpf U Hyaline Cast (Auto) (0-5) /lpf U Epithel Cells (Auto) (0-5) /lpf Urine Bacteria (Auto) (Negative) Urine Yeast Imaging Data My Impression: Radiologist's Impression: CT SCAN OF THE ABDOMEN AND PELVIS WITHOUT IV CONTRAST CLINICAL HISTORY: Lower abdominal pain. COMPARISON STUDY: Multiple prior abdominal CT scans, most recently dated 10/02/2020. TECHNIQUE: CT scan of the abdomen and pelvis is performed from the lung bases to the proximal femora. Images are reviewed in the axial, sagittal, and coronal planes. IV contrast was not administered for this examination as per the referring clinician. Note that the examination is suboptimal without IV co ntrast. A dose lowering technique was utilized adhering to the principles of ALARA. CT DOSE: 628.66 mGy.cm FINDINGS: Lung bases: The heart is normal in size and without pericardial effusion. The co ronary arteries and mitral annulus are densely calcified. There is a moderate hiatal hernia. There is trace left pleural effusion and bibasilar scarring/atelectasis. Edema and dermal thickening are noted in the partially imaged left breast. Liver: The unenhanced liver is normal in size, contour, and attenuation. There is no intrahepatic biliary ductal dilatation. Gallbladder: There are numerous tiny calcified gallstones with no CT evidence of acute cholecystitis. Spleen: Normal in size and attenuation. A small splenic hypodensity is unchanged and of doubtful significance. Pancreas: The unenhanced pancreas is atrophic and grossly unremarkable. Adrenal glands: Bilateral adrenal adenomas measure up to 2.2 cm. Kidneys: The unenhanced kidneys are atrophic. 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 These measure 4 mm and 5 mm, and cause moderate left hydroureteronephrosis. Hydronephrosis involves both the upper and lower pole moieties. There are at least 3 small stone fragments within the left renal collecting system. No right renal calculi are identified and there is no right- sided hydronephrosis. Scattered renal cysts and indeterminate cortical hypodensities measure up to 1.6 cm in diameter. Abdominal vasculature: The abdominal aorta is normal in course and caliber noting advanced atherosclerotic calcification. An IVC filter is in place. Bowel: Postoperative change is noted involving the stomach. There is also postoperative change from left colonic resection. A small bowel anastomosis is noted in the left lower quadrant. There is mild diverticulosis of the remaining colon without CT evidence of acute diverticulitis. There is mild to moderate colonic fecal retention. No bowel obstruction is seen. The appendix is not visualized. Peritoneum: There is no intraperitoneal free air or abdominal ascites. Postoperative change is noted in the ventral abdominal wall. Lymphadenopathy: None. Pelvic viscera: Evaluation of the pelvis is degraded by streak artifact from a right hip arthroplasty. The bladder wall is thickened and trabeculated. There are small bladder diverticula. Small bladder calculi are noted. The uterus and adnexa are normal as imaged. Skeletal structures: The skeletal structures are osteopenic. There is advanced lumbosacral spondylosis and mild scoliosis. No lytic or blastic lesions are seen. A right hip arthroplasty is in place. There are healed left-sided rib fractures. There is advanced chronic deformity of the left hip with destruction of the left femoral head with heterotopic bone formation and surrounding bursal fluid. There is dorsal dislocation of the proximal femur. Soft tissues: There is body wall edema. IMPRESSION: 1. There are at least 2 distal left ureteral calculi identified measuring up to 5 mm. This causes moderate left-sided hydroureteronephrosis. 2. 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 3. Additional tiny stones/fragments are identified in the left kidney. 4. Postoperative change is noted involving the stomach, colon, and small bowel. There is no bowel obstruction. 5. Trace left pleural effusion. 6. Cholelithiasis. 7. There are small bladder calculi. 8. Edema and dermal thickening are noted in the left breast. Clinical correlation will be required. 9. Additional findings as above. ACT 112: Positive. There are findings on this exam that require communication between the performing entity and the patient following Patient Test Result Information Act ([place] Act 112) guidelines. Electronically signed by: Srinivasan Finn M.D. 12/01/2020 5:39 PM Dictated: 12/01/201726 Transcribed: 12/01/201726 MDM Narrative I did evaluate the patient as noted above. The patient is presenting with abdominal pain which she has had intermittently since June. On exam she has some mild tenderness in the suprapubic region and left lower quadrant. She states this is normally where her pain is. She has had ureterolithiasis with obstructive uropathy and stents as well as lithotripsy over the past several months. IV access was established. The IV team was unable to get any blood from the patient. I did discuss risks and benefits of a femoral stick with her which she was agreeable to. I did perform a femoral stick using a 20-gauge needle after prepping the skin. Using the ultrasound I easily found the femoral vein and advanced the needle without difficulty. With the nurse assisting with an extension we were able to get 10 mL of blood. When he went to change the syringe we were unable to aspirate. I slightly withdrew the needle without effect. I then slowly advanced the needle and we were able to get 20 more cc of blood. This blood looks slightly brighter than the initial aspiration so I was concerned about the possibility of a femoral artery stick. A FemoStop was placed on the patient for hemostasis as the patient is on Coumadin for factor V Leiden mutation. I did get 1 set of blood cultures. I did order a urine analysis. She does have a UTI. She was treated with cefepime 2 g IV given her history of multidrug-resistant Morganella. I did order and review the patient's blood work as noted in the electronic medical record. Her white blood cell count is not elevated. She is not anemic. Electrolytes are unremarkable. Creatinine is slightly above baseline at 1.67. INR is subtherapeutic at 1.4. I did order a CT of the abdomen and pelvis. I did review the images myself as well as the radiology report as described above. I did discuss the test results with the patient. She will be hospitalized for further evaluation as well as urological consultation and IV antibiotics. I did discuss case with the hospitalist and special education case manager. Impression & Plan UTI (urinary tract infection), bacterial, Ureterolithiasis, Obstructed, uropathy, Subtherapeutic international normalized ratio (INR), Elevated serum creatinine Discharge Plan Visit Data Chief Complaint: Abdominal Pain Stated Complaint: Recurrent UTIs ED Provider: Omar Brown Discharge Problem: UTI (urinary tract infection), bacterial, Ureterolithiasis, Obstructed, uropathy, Subtherapeutic international normalized ratio (INR), Elevated serum creatinine Patient Disposition: Being Evaluated by Hospitalist Forms Stand Alone Forms: My [facility] Prescriptions Prescriptions: No Action furosemide [Lasix] 40 mg tablet 40 mg PO QAM RF: 0 metoprolol succinate 25 mg Tablet Extended Release 24 Hr 12.5 mg PO BID RF: 0 Flintstones Complete Tablet,Chewable 1 tab PO QAM RF: 0 calcium carbonate [Tums Extra Strength Smoothies] 300 mg (750 mg) Tablet,Chewable 750 mg PO UD PRN (Reason: Heartburn) RF: 0 omeprazole 20 mg Tablet,Delayed Release (Dr/Ec) 20 mg PO QAM RF: 0 nystatin 100,000 unit/gram powder 1 appln TOP BID PRN (Reason: rash) RF: 0 atorvastatin 40 mg Tablet 40 mg PO PM RF: 0 oxybutynin chloride 5 mg Tablet 5 mg PO BID RF: 0 bupropion HCl [Wellbutrin SR] 200 mg Tablet Sustained-Release 12 Hr 200 mg PO BID RF: 0 oxycodone [Roxicodone] 5 mg Tablet 5 mg PO Q4 PRN (Reason: Pain) RF: 0 buspirone 5 mg Tablet 5 mg PO TID RF: 0 ondansetron 4 mg Tablet,Disintegrating 4 mg PO Q8H PRN (Reason: Nausea) RF: 0 allopurinol 100 mg Tablet 100 mg PO BID RF: 0 duloxetine [Cymbalta] 20 mg Capsule,Delayed Release(Dr/Ec) 40 mg PO HS RF: 0 cyanocobalamin (vitamin B-12) 1,000 mcg/mL Kit 1,000 mcg IM UD RF: 0 potassium chloride [K-Tab] 10 mEq tablet extended release 10 meq PO QAM RF: 0 Probiotic 3 billion cell Capsule 3,000 mmu cells PO QAM RF: 0 warfarin 4 mg Tablet 2 mg PO DAILY RF: 0 phenazopyridine [Pyridium] 200 mg tablet 200 mg PO Q8H PRN (Reason: pain) Qty: 10 RF: 0 Referrals Referrals: Sadi Shea DO [Primary Care Provider] -
[2020-12-01 15:35] LABS: Appearance Urine Turbid (Clear); Bacteria Urine Automated 2+ (Negative); Bilirubin Urine Negative (Negative); Blood Urine 3+ (Negative); Color Urine Yellow; Epithelial Cell Urine Auto >30 /lpf (0-5); Glucose Urine UA Negative (Negative); Ketones Urine Negative (Negative); Leukocyte Esterase Urine 3+ (Negative); Nitrite Urine Positive (Negative); Specific Gravity Urine 1.012 (1.000-1.030); Urobilinogen Urine Negative (Negative); WBC Urine Automated >30 /hpf (0-5)
[2020-12-01 15:50] LABS: Protein Urine 1+ (Negative)
[2020-12-01 15:54] LABS: RBC Urine Automated 0-4 /hpf (0-4)
[2020-12-01 16:20] LABS: INR 1.4 (0.9-1.1); Partial Thromboplastin Ratio 0.8; Partial Thromboplastin Time 22.6 Seconds (21.0-31.0); Prothrombin Time 14.6 Seconds (9.0-12.0)
[2020-12-01] MEDS ORDERED: CEFEPIME 2,000 MG/20 ML VIAL ONE (16:21)
[2020-12-01 16:29] LABS: Alanine Aminotransferase 34 U/L (12-78); Albumin Globulin Ratio 0.6 (0.9-2); Albumin Level 1.9 gm/dl (3.4-5.0); Alkaline Phosphatase 162 U/L (45-117); BUN Creatinine Ratio 24.2 (10-20); Bilirubin,Total 0.3 mg/dl (0.2-1); Blood Urea Nitrogen 40 mg/dl (7-18); Calcium 8.1 mg/dl (8.5-10.1); Carbon Dioxide 24 mmol/L (21-32); Chloride 105 mmol/L (98-107); Creatinine Clr Calc Pharmacy 32.1 ml/min; Est GFR (African American) 34.6; Est GFR (Non-African American) 29.8; Glucose 84 mg/dl (70-99); Lipase 69 U/L (73-393); Sodium 136 mmol/L (136-145); Total Protein 4.9 gm/dl (6.4-8.2)
[2020-12-01 16:55] LABS: Basophils # (auto) 0.01 K/uL (0-0.2); Basophils % (auto) 0.1 %; Eosinophils # (auto) 0.02 K/uL (0-0.5); Eosinophils % (auto) 0.3 %; Hematocrit (blood only) 42.3 % (37-47); Hemoglobin 13.5 g/dL (12.0-16.0); Immature Granulocytes # (auto) 0.01 K/uL (0.00-0.02); Immature Granulocytes % (auto) 0.1 %; Lymphocytes # (auto) 0.89 K/uL (1.2-3.4); Lymphocytes % (auto) 11.8 %; Mean Corpuscular Hemoglobin 28.7 pg (25-34); Mean Corpuscular Hgb Conc 31.9 g/dL (32-36); Mean Platelet Volume 10.7 fL (7.4-10.4); Neutrophils # (auto) 6.34 K/uL (1.4-6.5); Neutrophils % (auto) 83.7 %; Platelet Count 286 K/uL (130-400); RDW Coefficient of Variation 17.9 % (11.5-14.5); RDW Standard Deviation 58.3 fL (36.4-46.3); White Blood Count 7.57 K/uL (4.8-10.8)
[2020-12-01 17:08] LABS: Potassium 4.4 mmol/L (3.5-5.1)
--- NOTE | 2020-12-01 17:41 | CT Scan Report ---
CT SCAN OF THE ABDOMEN AND PELVIS WITHOUT IV CONTRAST CLINICAL HISTORY: Lower abdominal pain. COMPARISON STUDY: Multiple prior abdominal CT scans, most recently dated 10/02/2020. TECHNIQUE: CT scan of the abdomen and pelvis is performed from the lung bases to the proximal femora. Images are reviewed in the axial, sagittal, and coronal planes. IV contrast was not administered for this examination as per the referring clinician. Note that the examination is suboptimal without IV contrast. A dose lowering technique was utilized adhering to the principles of ALARA. CT DOSE: 628.66 mGy.cm FINDINGS: Lung bases: The heart is normal in size and without pericardial effusion. The coronary arteries and m itral annulus are densely calcified. There is a moderate hiatal hernia. There is trace left pleural e ffusion and bibasilar scarring/atelectasis. Edema and dermal thickening are noted in the partially im aged left breast. Liver: The unenhanced liver is normal in size, contour, and attenuation. There is no intrahepatic jayda iary ductal dilatation. Gallbladder: There are numerous tiny calcified gallstones with no CT evidence of acute cholecystitis. Spleen: Normal in size and attenuation. A small splenic hypodensity is unchanged and of doubtful sign ificance. Pancreas: The unenhanced pancreas is atrophic and grossly unremarkable. Adrenal glands: Bilateral adrenal adenomas measure up to 2.2 cm. Kidneys: The unenhanced kidneys are atrophic. There is duplication of the left renal collecting syste m and at least partial duplication of the left ureter there are least 2 distal left ureteral calculi seen just below the pelvic inlet on images #266 and #270. These measure 4 mm and 5 mm, and cause mode rate left hydroureteronephrosis. Hydronephrosis involves both the upper and lower pole moieties. Ther e are at least 3 small stone fragments within the left renal collecting system. No right renal calcul i are identified and there is no right-sided hydronephrosis. Scattered renal cysts and indeterminate cortical hypodensities measure up to 1.6 cm in diameter. Abdominal vasculature: The abdominal aorta is normal in course and caliber noting advanced atheroscle rotic calcification. An IVC filter is in place. Bowel: Postoperative change is noted involving the stomach. There is also postoperative change from l eft colonic resection. A small bowel anastomosis is noted in the left lower quadrant. There is mild d iverticulosis of the remaining colon without CT evidence of acute diverticulitis. There is mild to mo derate colonic fecal retention. No bowel obstruction is seen. The appendix is not visualized. Peritoneum: There is no intraperitoneal free air or abdominal ascites. Postoperative change is noted in the ventral abdominal wall. Lymphadenopathy: None. Pelvic viscera: Evaluation of the pelvis is degraded by streak artifact from a right hip arthroplasty . The bladder wall is thickened and trabeculated. There are small bladder diverticula. Small bladder calculi are noted. The uterus and adnexa are normal as imaged. Skeletal structures: The skeletal structures are osteopenic. There is advanced lumbosacral spondylosi s and mild scoliosis. No lytic or blastic lesions are seen. A right hip arthroplasty is in place. The re are healed left-sided rib fractures. There is advanced chronic deformity of the left hip with dest ruction of the left femoral head with heterotopic bone formation and surrounding bursal fluid. There is dorsal dislocation of the proximal femur. Soft tissues: There is body wall edema. IMPRESSION: 1. There are at least 2 distal left ureteral calculi identified measuring up to 5 mm. This causes mod erate left-sided hydroureteronephrosis. 2. 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 3. Additional tiny stones/fragments are identified in the left kidney. 4. Postoperative change is noted involving the stomach, colon, and small bowel. There is no bowel obs truction. 5. Trace left pleural effusion. 6. Cholelithiasis. 7. There are small bladder calculi. 8. Edema and dermal thickening are noted in the left breast. Clinical correlation will be required. 9. Additional findings as above. ACT 112: Positive. There are findings on this exam that require communication between the performing entity and the patient following Patient Test Result Information Act ([place] Act 112) guidelines. Electronically signed by: Srinivasan Finn M.D. 12/01/2020 5:39 PM
--- NOTE | 2020-12-01 18:18 | History & Physical Report ---
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 coli sepsis secondary to obstructive uropathy/renal lithiasis requiring left ureteral stenting who presents to ED secondary to referred by PCP 2/2 to UTI requiring IV antibiotics. admit to neoSurgical continue IV cefepime day #1 consult infectious disease 2/2 to MDR organism - pt is afebrile, wbc wnl no s/sx of SIRS/Sepsis consult urology 2/2 to distal L ureteral calculi NPO after midnight in event procedure required (3) Chronic diastolic heart failure: (4) Aortic stenosis, severe: Chronic diastolic CHF with apical ballooning syndrome on 06/2020 echo Severe calcific aortic stenosis Follows [facility] cardiology monitor volume status closely, daily weights, strict I and O hold lasix for now, reassess in a.m., resume when able continue metoprolol (5) CKD (chronic kidney disease), stage III: (6) Obstructed, uropathy: a/c ckd stage 3 baseline cr 1.2 bun/cr 40 and 1.67 hold bactrim, lasix and avoid nephrotoxic agents possibly in setting of UTI/Stones but recently placed on bactrim (7) Factor 5 Leiden mutation, heterozygous: History of DVT/PE on long-term anticoagulation INR sub therapeutic Warfarin home regimen 2 mg daily - continue for now will not give increased dose tonight in event pt to require surgical procedure in a.m. (8) NICOLASA on CPAP: BIPAP at HS 10/8 (9) Wheelchair dependence: Secondary to left periprosthetic hip infection status post removal Currently not on any long-term antibiotics (10) DVT prophylaxis: INR 1.4, continue warfarin repeat INR in a.m. Disposition: admit to med tele Follow up: PCP Dr. Shea upon discharge Pt was seen and examined in collaboration with Dr. 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 coli sepsis secondary to obstructive uropathy/renal lithiasis requiring left ureteral stenting who presents to ED secondary to referred by PCP 2/2 to UTI requiring IV antibiotics. Currently complains of extreme fatigue, nausea, dysuria, constipation and she finally had a BM today after 5 days. Denies f/c/s, dizziness, lightheaded, chest pain, sob, cough, URI sx, nausea, vomiting, diarrhea, melena, hematochezia. She was told to come to ER because her UA was positive for UTI and required IV antibiotics. Previously had been on bactrim w/o improvement. Of significance pt has hx of recurrent UTI and nephrolithiasis. In 09/2020 she required cysto with stent placement. Stent was removed 11/06/[address] Sanchez. Urinalysis in outpatient setting grew greater than 100,000 Morganella Morganii sensitive to only cefepi me, Zosyn and meropenem. She does live at home with her son and is wheelchair- bound. In ED patient did undergo CT scan abdomen pelvis which reveals at least 2 distal left ureteral calculi measuring up to 5 mm causing moderate left-sided hydrouteronephrosis. She was afebrile and her WBC was WNL. INR subtherapeutic at 1.4. She had mild elevation BUN/creatinine 40 and 1.67. Her last dose of Bactrim was this morning. In ED she received IV cefepime. Allergies Allergy/AdvReac Type Severity Reaction Status Date / Time adhesive Allergy Intermediate BLISTERS Verified 12/01/20 15:55 WITH STERI-STRIPS Iodinated Contrast Media Allergy Intermediate hive Verified 12/01/20 15:55 [Iodinated Contrast- Oral and IV Dye] naproxen Allergy Intermediate SWELLING - Verified 12/01/20 15:55 TOLERATES ESTEVES-[address] HALL ciprofloxacin Allergy Mild RASH Verified 12/01/20 15:55 Quinolones Allergy Mild NEUROLOGIC Verified 12/01/20 15:55 SYMPTOMS Home Medications Medication Instructions Recorded Confirmed Type allopurinol 100 mg PO BID 06/23/19 12/01/20 History buspirone 5 mg PO TID 06/23/19 12/01/20 History cyanocobalamin (vitamin B-12) 1,000 mcg IM UD 06/23/19 12/01/20 History duloxetine [Cymbalta] 40 mg PO HS 06/23/19 12/01/20 History ondansetron 4 mg PO Q8H PRN 06/23/19 12/01/20 History oxycodone [Roxicodone] 5 mg PO Q4 PRN 06/23/19 12/01/20 History Flintstones Complete 1 tab PO QAM 08/27/19 12/01/20 History atorvastatin 40 mg PO PM 12/31/19 12/01/20 History bupropion HCl [Wellbutrin SR] 200 mg PO BID 12/31/19 12/01/20 History calcium carbonate [Tums Extra 750 mg PO UD PRN 12/31/19 12/01/20 History Strength Smoothies] nystatin 1 appln TOP BID PRN 12/31/19 12/01/20 History omeprazole 20 mg PO QAM 12/31/19 12/01/20 History oxybutynin chloride 5 mg PO BID 12/31/19 12/01/20 History Probiotic 3,000 mmu cells PO QAM 06/21/20 12/01/20 History potassium chloride [K-Tab] 10 meq PO BID 06/21/20 12/01/20 History warfarin 2 mg PO DAILY 08/01/20 12/01/20 History furosemide [Lasix] 40 mg PO QAM 09/25/20 12/01/20 History metoprolol succinate 12.5 mg PO BID 09/25/20 12/01/20 History phenazopyridine [Pyridium] 200 mg PO Q8H PRN #10 tab 10/16/20 12/01/20 Rx cholecalciferol (vitamin D3) 50 mcg PO DAILY 12/01/20 12/01/20 History docusate sodium 100 mg PO BID 12/01/20 12/01/20 History loperamide [Imodium] 2 mg PO Q4H PRN 12/01/20 12/01/20 History sulfamethoxazole-trimethoprim 1 tab PO BID 12/01/20 12/01/20 History [Sulfamethoprim DS] Past Med/Surg History Medical History Aortic stenosis, severe PAULY 0.62-0.66 cm2 per 08/31/2020 echo. Patient seen by [facility] valve clinic 08/14/20 for possible TAVR, workup initiated with repeat echo, but patient subsequently admitted to [facility] again for urologic issues. 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 Per cardiology consult , "Only mild left ventricular dysfunction and suspect stress mediated etiology rather than acute ischemic event. Patient on appropriate beta-sheryl therapy." Apical wall motion abnormality resolved on 08/04/20 ECHO Atrial fibrillation follows with Michael Bui> NO PACER Bleeding hemorrhoids Carotid artery stenosis [place] , 50%, LICA 50-69% by 04/09/19 doppler Chronic diastolic heart failure CKD (chronic kidney disease), stage III Degenerative disc disease Depression Dyslipidemia Factor 5 Leiden mutation, heterozygous recurrent PE/DVT; status post IVC filter placement, on Coumadin Frequent UTI RECENT HOSPITALIZATION GERD (gastroesophageal reflux disease) [place] filter in place History of COPD "MILD" History of esophageal disorder esophageal diverticulum History of peripheral neuropathy bilateral feet History of stress incontinence Hx of cancer of uterus diagnosed 03/2019---radiation only Hx of gout Hx of iron deficiency anemia Hypertension Intestinal disorder post op malabsorption Non-ST elevation DE (NSTEMI) In setting of acute illness (urosepsis 2/2 obstructing stone) 06/21/20 On anticoagulant therapy warfarin daily NICOLASA on CPAP Pes planus Post traumatic stress disorder Pulmonary embolism hx of bilateral ~2002 2/2 FFL Sleep apnea CPAP Spinal stenosis Stroke 06/03/2019 after I&D left hip--vision loss in left eye--no neurologist Vision abnormalities r peripheral vision loss( posterior ischemic optic neuropathyleft eye), left side altered vision like looking through a screen door Weakness Wheelchair dependence Surgical History H/O cystoscopy 06/23/20 and 07/20/20 [facility] History of arthroplasty of left hip 2006 @ [facility]--infected after, multiple sx's History of biopsy of bladder benign History of colonoscopy with polypectomy History of incision and drainage 05/2019 of left hip History of left hip replacement 03/2019 @ [facility] [place] History of left shoulder replacement History of right hip replacement 2005 @ [facility] History of tonsillectomy and adenoidectomy History of tooth extraction Hx of gastric bypass 2016 Hx of tubal ligation Hx of umbilical hernia repair mesh inserted S/P colon resection 1984 @ [facility] complete sigmoid removed d/t diverticular disease Family History Mother , age 91 Heart disease Family hx colonic polyps Father , age 42 Factor V deficiency Myocardial infarction Sister No problems noted. Sister Endometrial cancer Brother Family hx colonic polyps Brother , age 50 Meningitis Brother No problems noted. Brother No problems noted. Son No problems noted. Son No problems noted. Son Colon abnormality Son , in his 30 `s , " girl friend over dosed the patients son " Drug overdose Grandfather (Paternal) Family history of diabetes mellitus Family hx of colon cancer Other No family history of adverse response to anesthesia Social History Smoking Status: Former smoker Age Started Using Tobacco: 22; packs per day: 0.5; Years Smoked: 25; Second Hand Exposure: Yes (parents smoked/ smoked); Hx Alcohol Use: No Hx Substance Use: No Preferred Language: Arabic Communication Ability: Effective Visual Impairment: No Limitations Hearing Ability: Normal Steamer Operator Required: No Beliefs That Will Affect Care: None marital status: / Current Living Situation: Family Current Living Situation Comment: Lives w/ son current occupational status: retired 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 Feels Safe at Home: Yes Safety Concerns: Feels Safe At This Time Assistive Devices: Glasses Review of Systems Review of Systems: All systems reviewed & are unremarkable except as noted in HPI & below Physical Exam Physical Exam: Constitutional: Chronically ill-appearing female, obese, vitals as above, NAD, sitting up in bed, decent bed mobility, pleasant, conversing easily answers questions appropriately Head: Normocephalic, Atraumatic Eyes: PERRL, conjunctivae normal, anicteric sclerae ENMT: external ear and nose normal, oropharynx normal Neck: trachea midline, no thyromegaly normal visual inspection Respiratory: normal respiratory effort, lungs clear to auscultation, no wheeze, rales, rhonchi. Normal insp/exp effort, no accessory muscle use Cardiovascular: RRR, harsh 3/6 JAMAL noted RUSB, bilateral lower extremity nonpitting edema Vessels: no JVD or carotid bruit Chest: normal inspection of chest Abdomen: normal bowel sounds, soft, nontender, no hepatosplenomegaly Musculoskeletal: no cyanosis or clubbing, bilateral upper extremities 5/5, left lower extremity 2/5, right lower extremity 3/5, left lower extremity with foot eversion Skin: no rashes, warm and dry normal turgor Neurologic: PERRL, EOMI, accommodation nl, no face palsy, no dysarthria CN's II-XI intact bilaterally and moves all extremities Psychiatric: A+Ox3, euthymic affect : deferred Results & Data Results & Data ([facility]) Vital Signs (Past 12 Hours) Vital Signs Temp Pulse Resp BP Pulse Ox 12/01/20 17:00 102 H 13 12/01/20 16:31 86 16 12/01/20 16:30 86 16 12/01/20 16:12 91 H 16 116/71 12/01/20 15:30 85 17 12/01/20 15:00 85 17 12/01/20 14:40 82 19 96 12/01/20 14:39 84 20 130/73 97 12/01/20 14:00 83 14 121/86 98 12/01/20 13:30 82 14 131/82 97 12/01/20 13:19 36.9 C 87 12 142/[address] a/p: FINDINGS: Lung bases: The heart is normal in size and without pericardial effusion. The coronary arteries and mitral annulus are densely calcified. There is a moderate hiatal hernia. There is trace left pleural effusion and bibasilar scarring/atelectasis. Edema and dermal thickening are noted in the partially imaged left breast. Liver: The unenhanced liver is normal in size, contour, and attenuation. There is no intrahepatic biliary ductal dilatation. Gallbladder: There are numerous tiny calcified gallstones with no CT evidence of acute cholecystitis. Spleen: Normal in size and attenuation. A small splenic hypodensity is unchanged and of doubtful significance. Pancreas: The unenhanced pancreas is atrophic and grossly unremarkable. Adrenal glands: Bilateral adrenal adenomas measure up to 2.2 cm. Kidneys: The unenhanced kidneys are atrophic. 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 These measure 4 mm and 5 mm, and cause moderate left hydroureteronephrosis. Hydronephrosis involves both the upper and lower pole moieties. There are at least 3 small stone fragments within the left renal collecting system. No right renal calculi are identified and there is no right- sided hydronephrosis. Scattered renal cysts and indeterminate cortical hypodensities measure up to 1.6 cm in diameter. Abdominal vasculature: The abdominal aorta is normal in course and caliber noting advanced atherosclerotic calcification. An IVC filter is in place. Bowel: Postoperative change is noted involving the stomach. There is also postoperative change from left colonic resection. A small bowel anastomosis is noted in the left lower quadrant. There is mild diverticulosis of the remaining colon without CT evidence of acute diverticulitis. There is mild to moderate colonic fecal retention. No bowel obstruction is seen. The appendix is not visualized. Peritoneum: There is no intraperitoneal free air or abdominal ascites. Postoperative change is noted in the ventral abdominal wall. Lymphadenopathy: None. Pelvic viscera: Evaluation of the pelvis is degraded by streak artifact from a right hip arthroplasty. The bladder wall is thickened and trabeculated. There are small bladder diverticula. Small bladder calculi are noted. The uterus and adnexa are normal as imaged. Skeletal structures: The skeletal structures are osteopenic. There is advanced lumbosacral spondylosis and mild scoliosis. No lytic or blastic lesions are seen. A right hip arthroplasty is in place. There are healed left-sided rib fractures. There is advanced chronic deformity of the left hip with destruction of the left femoral head with heterotopic bone formation and surrounding bursal fluid. There is dorsal dislocation of the proximal femur. Soft tissues: There is body wall edema. IMPRESSION: 1. There are at least 2 distal left ureteral calculi identified measuring up to 5 mm. This causes moderate left-sided hydroureteronephrosis. 2. 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 3. Additional tiny stones/fragments are identified in the left kidney. 4. Postoperative change is noted involving the stomach, colon, and small bowel. There is no bowel obstruction. 5. Trace left pleural effusion. 6. Cholelithiasis. 7. There are small bladder calculi. 8. Edema and dermal thickening are noted in the left breast. Clinical correlation will be required. 9. Additional findings as above. Medications Administered Discontinued Medications Cefepime HCl (Cefepime 2,000 Mg/20 Ml Vial) Confirm Administered Dose 2,000 mg .ROUTE .K-MED ONE Stop: 12/01/20 16:22 Last Admin: 12/01/20 16:22 Dose: Not Given Documented by: [id number] Sodium Chloride (Nss) 500 mls @ 125 mls/hr IV .Q4H STA Stop: 12/01/20 17:53 Last Admin: 12/01/20 16:20 Dose: 125 mls/hr Documented by: [id number] Cefepime HCl (Maxipime) 2,000 mg in 20 mls @ 5 mls/min IV NOW STA; Protocol Stop: 12/01/20 14:05 Last Admin: 12/01/20 16:21 Dose: 5 mls/min Documented by: [id number] COVID-19 Results Results COVID-19 Adm Lab Results: RBC 4.70 M/uL (4.2-5.4) 12/01/20 WBC 7.57 K/uL (4.8-10.8) 12/01/20 Hgb 13.5 g/dL (12.0-16.0) 12/01/20 Hct 42.3 % (37-47) 12/01/20 Plt Count 286 K/uL (130-400) 12/01/20 Neutrophils (%) (Auto) 83.7 % 12/01/20 Lymphocytes (%) (Auto) 11.8 % 12/01/20 Monocytes # (Auto) 0.30 K/uL (0.11-0.59) 12/01/20 Eosinophils # (Auto) 0.02 K/uL (0-0.5) 12/01/20 Immature Granulocyte % (Auto) 0.1 % 12/01/20 Neutrophils # (Auto) 6.34 K/uL (1.4-6.5) 12/01/20 Lymphocytes # (Auto) 0.89 K/uL (1.2-3.4) L 12/01/20 Monocytes # (Auto) 0.30 K/uL (0.11-0.59) 12/01/20 Eosinophils # (Auto) 0.02 K/uL (0-0.5) 12/01/20 Basophils # (Auto) 0.01 K/uL (0-0.2) 12/01/20 Immature Granulocyte # (Auto) 0.01 K/uL (0.00-0.02) 12/01/20 Na 136 mmol/L (136-145) 12/01/20 K 4.4 mmol/L (3.5-5.1) 12/01/20 Cl 105 mmol/L (98-107) 12/01/20 CO2 24 mmol/L (21-32) 12/01/20 Anion Gap 7.0 (3-11) 12/01/20 BUN 40 mg/dl (7-18) H 12/01/20 Creatinine 1.67 mg/dl (0.6-1.2) H 12/01/20 BUN/Creatinine Ratio 24.2 (10-20) H 12/01/20 Glucose Level 84 mg/dl (70-99) 12/01/20 Ca 8.1 mg/dl (8.5-10.1) L 12/01/20 Total Bilirubin 0.3 mg/dl (0.2-1) 12/01/20 AST/SGOT 34 U/L (15-37) 12/01/20 ALT/SGPT 34 U/L (12-78) 12/01/20 Alkaline Phosphatase 162 U/L (45-117) H 12/01/20 Total Protein 4.9 gm/dl (6.4-8.2) L 12/01/20 Albumin 1.9 gm/dl (3.4-5.0) L 12/01/20 Globulin 3.0 gm/dl (2.5-4.0) 12/01/20 Albumin/Globulin Ratio 0.6 (0.9-2) L 12/01/20 PTT 22.6 Seconds (21.0-31.0) 12/01/20 INR 1.4 (0.9-1.1) H 12/01/20 SARS-CoV-2, RNA, NAAT NEGATIVE (NEGATIVE) 12/01/20 Code Status & VTE Plan Code Status Conditional code okay to CPR, No mechanical ventilation, okay for CPAP and Bipap VTE Prophylaxis Plan VTE Prophylaxis will be ordered: Yes Reason for no VTE drug order: Contraindicated (on warfarin) Reason for no VTE mechanical prophylaxis: Treatment not tolerated Supervising Physician Co-Signing Physician Notes 74-year-old female who has significant past medical history of chronic diastolic CHF, severe calcific aortic valve stenosis, apical ballooning LV dysfunction, history of ocular CVA, HTN, HLD, factor V Leiden mutation with history of DVT/PE and [place] filter in place on chronic Coumadin therapy, carotid artery stenosis, history of diabetes mellitus, HLD, 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 coli sepsis secondary to obstructive uropathy/renal lithiasis requiring left ureteral stenting who presents to ED secondary to referred by PCP 2/2 to UTI History as detailed above, notable for dysuria, frequency, fatigue, nausea. Physical exam notable for elderly woman in no obvious distress, no abdominal or CVA tenderness, reduced power in lower extremities [left more than right:2/5 and 3/5 respectively; chronic], systolic ejection murmur Lab work notable for INR of 1.4, alkaline phosphatase of 162, UA suggestive of UTI with nitrite/pyuria CT abdomen and pelvis showing left ureteral calculi with moderate left-sided hydroureteronephrosis, duplication of left renal collecting system, left nephrolithiasis, small bladder calculi -Urinary tract infection -Left ureteral calculi with hydroureteronephrosis -SELWYN on CKD3 Continue cefepime Get urine culture and follow-up results CT history of MDR, consult infectious disease Get urology in view of ureteral stone with hydroureteronephrosis Strain urine Hold diuretics for now and monitor renal function Avoid nephrotoxins Continue warfarin for now Other plans as above
[2020-12-01] MEDS ORDERED: ACETAMINOPHEN 325 MG TAB PO PRN (21:21)
[2020-12-01] MEDS ORDERED: NYSTATIN POWDER 15GM BTL EXT PRN (21:21)
[2020-12-01] MEDS ORDERED: ONDANSETRON INJ 2 MG/ML 2 ML VIAL IV PRN (21:21)
[2020-12-01] MEDS ORDERED: CEFEPIME CONSULT ACTIVE PRN (21:36)
[2020-12-01] MEDS: WARFARIN SOD 2 MG TAB PO SCH (22:14)
[2020-12-01] MEDS: allopurinoL 100 MG TAB PO SCH (22:26)
[2020-12-01] MEDS: busPIRone 5 MG TAB PO SCH (22:26)
[2020-12-01] MEDS: ATORVASTATIN 40 MG TAB PO SCH (22:27)
[2020-12-01] MEDS: METOPROLOL SUCC 25MG EXT REL TAB PO SCH (22:27)
[2020-12-01] MEDS: buPROPion SR 100 MG TABCR PO SCH (22:28)
[2020-12-01] MEDS: OXYBUTYNIN CHLORIDE 5 MG TAB PO SCH (22:28)
[2020-12-01] MEDS: DULoxetine HCL 20 MG CAP PO SCH (22:30)
[2020-12-01] MEDS: DOCUSATE SODIUM 100 MG CAP PO SCH (22:31)
[2020-12-01] MEDS: oxyCODONE HCL IR 5 MG TAB (IMMEDIATE RELEASE) PO PRN (22:41)
[2020-12-02] MEDS: DOCUSATE SODIUM 100 MG CAP PO SCH ×2 (08:16→20:47)
[2020-12-02] MEDS: CEFEPIME 2,000 MG in SYRINGE 0 ML IV SCH ×2 (08:16→18:42)
[2020-12-02] MEDS: CHOLECALCIFEROL 1,000 UNITS 25 MCG TAB PO SCH (08:16)
[2020-12-02] MEDS: ADVANCED PROBIOTIC 1250 MG CAPSULE PO SCH (08:17)
[2020-12-02] MEDS: MULTIVITAMIN TAB PO SCH (08:17)
[2020-12-02] MEDS: OXYBUTYNIN CHLORIDE 5 MG TAB PO SCH ×2 (08:17→20:45)
[2020-12-02] MEDS: buPROPion SR 100 MG TABCR PO SCH ×2 (08:17→13:44)
[2020-12-02] MEDS: PANTOprazole 40 MG TAB PO SCH (08:18)
[2020-12-02] MEDS: busPIRone 5 MG TAB PO SCH ×3 (08:18→20:46)
[2020-12-02] MEDS: allopurinoL 100 MG TAB PO SCH ×2 (08:18→20:47)
[2020-12-02] MEDS: METOPROLOL SUCC 25MG EXT REL TAB PO SCH ×2 (08:18→20:48)
[2020-12-02] MEDS: oxyCODONE HCL IR 5 MG TAB (IMMEDIATE RELEASE) PO PRN ×2 (08:35→20:44)
--- NOTE | 2020-12-02 09:04 | Urology Consultation ---
Date of Consultation December 02, 2020 Assessment & Plan (1) UTI (urinary tract infection), bacterial: (2) Ureterolithiasis: Risks and benefits discussed at length for procedure. These include bleeding, infection, injury to surrounding tissues or organs, and risks associated with anesthesia. Patient states understanding and agrees to proceed. Will sign consent and proceed Plan for cystoscopy with left stent placement possible stone treatment. (3) Obstructed, uropathy: History of Present Illness Attending Physician: Janett Lyman MD History of Present Illness New consultation for patient with stone, discomfort, obstruction, and ill feelings. Patient developed sudden onset of pain into flank going down and radiating into groin and back in waves comes and goes. Can be severe at times. Discussed and reviewed patient's family history for any history of stone disease. Also, discussed patient's medical surgery history especially related to any history of urinary issues or stone disease. Patient was admitted and is undergoing observation. Allergies Allergy/AdvReac Type Severity Reaction Status Date / Time adhesive Allergy Intermediate BLISTERS Verified 12/01/20 15:55 WITH STERI-STRIPS Iodinated Contrast Media Allergy Intermediate hive Verified 12/01/20 15:55 [Iodinated Contrast- Oral and IV Dye] naproxen Allergy Intermediate SWELLING - Verified 12/01/20 15:55 TOLERATES ESTEVES-[address] HALL ciprofloxacin Allergy Mild RASH Verified 12/01/20 15:55 Quinolones Allergy Mild NEUROLOGIC Verified 12/01/20 15:55 SYMPTOMS Home Medications Medication Instructions Recorded Confirmed Type allopurinol 100 mg PO BID 06/23/19 12/01/20 History buspirone 5 mg PO TID 06/23/19 12/01/20 History cyanocobalamin (vitamin B-12) 1,000 mcg IM UD 06/23/19 12/01/20 History duloxetine [Cymbalta] 40 mg PO HS 06/23/19 12/01/20 History ondansetron 4 mg PO Q8H PRN 06/23/19 12/01/20 History oxycodone [Roxicodone] 5 mg PO Q4 PRN 06/23/19 12/01/20 History Flintstones Complete 1 tab PO QAM 08/27/19 12/01/20 History atorvastatin 40 mg PO PM 12/31/19 12/01/20 History bupropion HCl [Wellbutrin SR] 200 mg PO BID 12/31/19 12/01/20 History calcium carbonate [Tums Extra 750 mg PO UD PRN 12/31/19 12/01/20 History Strength Smoothies] nystatin 1 appln TOP BID PRN 12/31/19 12/01/20 History omeprazole 20 mg PO QAM 12/31/19 12/01/20 History oxybutynin chloride 5 mg PO BID 12/31/19 12/01/20 History Probiotic 3,000 mmu cells PO QAM 06/21/20 12/01/20 History potassium chloride [K-Tab] 10 meq PO BID 06/21/20 12/01/20 History warfarin 2 mg PO DAILY 08/01/20 12/01/20 History furosemide [Lasix] 40 mg PO QAM 09/25/20 12/01/20 History metoprolol succinate 12.5 mg PO BID 09/25/20 12/01/20 History phenazopyridine [Pyridium] 200 mg PO Q8H PRN #10 tab 10/16/20 12/01/20 Rx cholecalciferol (vitamin D3) 50 mcg PO DAILY 12/01/20 12/01/20 History docusate sodium 100 mg PO BID 12/01/20 12/01/20 History loperamide [Imodium] 2 mg PO Q4H PRN 12/01/20 12/01/20 History sulfamethoxazole-trimethoprim 1 tab PO BID 12/01/20 12/01/20 History [Sulfamethoprim DS] Patient History Medical History Aortic stenosis, severe PAULY 0.62-0.66 cm2 per 08/31/2020 echo. Patient seen by [facility] valve clinic 08/14/20 for possible TAVR, workup initiated with repeat echo, but patient subsequently admitted to [facility] again for urologic issues. 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 Per cardiology consult , "Only mild left ventricular dysfunction and suspect stress mediated etiology rather than acute ischemic event. Patient on appropriate beta-sheryl therapy." Apical wall motion abnormality resolved on 08/04/20 ECHO Atrial fibrillation follows with Michael Bui> NO PACER Bleeding hemorrhoids Carotid artery stenosis [place] , 50%, LICA 50-69% by 04/09/19 doppler Chronic diastolic heart failure CKD (chronic kidney disease), stage III Degenerative disc disease Depression Dyslipidemia Factor 5 Leiden mutation, heterozygous recurrent PE/DVT; status post IVC filter placement, on Coumadin Frequent UTI RECENT HOSPITALIZATION GERD (gastroesophageal reflux disease) [place] filter in place History of COPD "MILD" History of esophageal disorder esophageal diverticulum History of peripheral neuropathy bilateral feet History of stress incontinence Hx of cancer of uterus diagnosed 03/2019---radiation only Hx of gout Hx of iron deficiency anemia Hypertension Intestinal disorder post op malabsorption Non-ST elevation PR (NSTEMI) In setting of acute illness (urosepsis 2/2 obstructing stone) 06/21/20 On anticoagulant therapy warfarin daily NICOLASA on CPAP Pes planus Post traumatic stress disorder Pulmonary embolism hx of bilateral ~2003 12/12 FFL Sleep apnea CPAP Spinal stenosis Stroke 06/03/2019 after I&D left hip--vision loss in left eye--no neurologist Vision abnormalities r peripheral vision loss( posterior ischemic optic neuropathyleft eye), left side altered vision like looking through a screen door Weakness Wheelchair dependence Surgical History H/O cystoscopy 06/23/20 and 07/20/20 [facility] History of arthroplasty of left hip 2006 @ [facility]--infected after, multiple sx's History of biopsy of bladder benign History of colonoscopy with polypectomy History of incision and drainage 05/2019 of left hip [place] [facility] [place] of left shoulder replacement History of right hip replacement 2005 @ [facility] History of tonsillectomy and adenoidectomy History of tooth extraction Hx of gastric bypass 2016 Hx of tubal ligation Hx of umbilical hernia repair mesh inserted S/P colon resection 1984 @ [facility] complete sigmoid removed d/t diverticular disease Family History Mother , age 91 Heart disease Family hx colonic polyps Father , age 42 Factor V deficiency Myocardial infarction Sister No problems noted. Sister Endometrial cancer Brother Family hx colonic polyps Brother , age 50 Meningitis Brother No problems noted. Brother No problems noted. Son No problems noted. Son No problems noted. 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 Patient is well nourished and well kept. HEENT: Normocephalic Atraumatic. Inspection normal. Cranial Nerves 2-12 Grossly intact. Nares are clear. Neck is supple. Normal inspection of face. Normal inspection of neck. Neurologic: No deficits on inspection. Baseline for motor function and sensory. Psychologic: Normal affect. Respiratory: Nonlabored. No use of accessory muscles. No tachypnea or dyspnea. Cardiovascular: No tachycardia Skin: Stuckey and Dry. No rashes or visible lesions. Extremities: Moving without issues. No motor deficits on inspection Lymphatics: No edema Abdomen: Soft Non-distended. No acites. No rebound or guarding. Results & Data ([facility]) Vital Signs (Past 12 Hours) Vital Signs Temp Pulse Pulse Resp BP Pulse Ox 12/02/20 08:28 36.9 C 79 20 114/71 96 12/02/20 07:25 74 12/02/20 03:02 36.2 C L 81 20 113/61 96 12/01/20 23:42 91 H 12/01/20 23:26 82 18 97 12/01/20 22:11 36.5 C 92 H 18 104/57 L 98 12/01/20 21:21 36.5 C 73 86 16 177/72 H 96 PG Care Time/CCT Total # of Minutes Spent Total Time Spent with Patient: Total time spent is greater than 50% in coordination of care (as documented) at patient's floor/unit and/or counseling patient: Coding Level of Care Code 88749 Inpt Consult Level 5 Diagnoses UTI (urinary tract infection), bacterial N39.0; A49.9 Ureterolithiasis N20.1 Obstructed, uropathy N13.9
--- NOTE | 2020-12-02 09:08 | Anesthesiology Consultation ---
Date of Service December 02, 2020 History Surgery Operation Date: 12/02/20 08:00 Proposed Procedures p Cystoscopy - Albert Castellanos DO s Ureteral Stent Insertion/Removal - Albert Castellanos DO Height/Weight Height: 5 ft 6 in Weight: 82.9 kg Allergies Allergy/AdvReac Type Severity Reaction Status Date / Time adhesive Allergy Intermediate BLISTERS Verified 12/01/20 15:55 WITH STERI-STRIPS Iodinated Contrast Media Allergy Intermediate hive Verified 12/01/20 15:55 [Iodinated Contrast- Oral and IV Dye] naproxen Allergy Intermediate SWELLING - Verified 12/01/20 15:55 TOLERATES ESTEVES-[address] HALL ciprofloxacin Allergy Mild RASH Verified 12/01/20 15:55 Quinolones Allergy Mild NEUROLOGIC Verified 12/01/20 15:55 SYMPTOMS Medications Home Medications Medication Instructions Recorded Confirmed Last Taken allopurinol 100 mg PO BID 06/23/19 12/01/20 12/01/20 buspirone 5 mg PO TID 06/23/19 12/01/20 12/01/20 cyanocobalamin (vitamin B-12) 1,000 mcg IM UD 06/23/19 12/01/20 10/09/20 duloxetine [Cymbalta] 40 mg PO HS 06/23/19 12/01/20 11/30/20 ondansetron 4 mg PO Q8H PRN 06/23/19 12/01/20 12/01/20 oxycodone [Roxicodone] 5 mg PO Q4 PRN 06/23/19 12/01/20 12/01/20 Flintstones Complete 1 tab PO QAM 08/27/19 12/01/20 12/01/20 atorvastatin 40 mg PO PM 12/31/19 12/01/20 11/30/20 bupropion HCl [Wellbutrin SR] 200 mg PO BID 12/31/19 12/01/20 12/01/20 calcium carbonate [Tums Extra 750 mg PO UD PRN 12/31/19 12/01/20 Unknown Strength Smoothies] nystatin 1 appln TOP BID PRN 12/31/19 12/01/20 Unknown omeprazole 20 mg PO QAM 12/31/19 12/01/20 12/01/20 oxybutynin chloride 5 mg PO BID 0212/01/20 12/01/20 Probiotic 3,000 mmu cells PO QAM 06/21/20 12/01/20 12/01/20 potassium chloride [K-Tab] 10 meq PO BID 06/21/20 12/01/20 12/01/20 warfarin 2 mg PO DAILY 08/01/20 12/01/20 12/01/20 furosemide [Lasix] 40 mg PO QAM 09/25/20 12/01/20 12/01/20 metoprolol succinate 12.5 mg PO BID 09/25/20 12/01/20 12/01/20 phenazopyridine [Pyridium] 200 mg PO Q8H PRN #10 tab 10/16/20 12/01/20 Unknown cholecalciferol (vitamin D3) 50 mcg PO DAILY 12/01/20 12/01/20 Unknown docusate sodium 100 mg PO BID 12/01/20 12/01/20 Unknown loperamide [Imodium] 2 mg PO Q4H PRN 12/01/20 12/01/20 Unknown sulfamethoxazole-trimethoprim 1 tab PO BID 12/01/20 12/01/20 12/01/20 08:00 [Sulfamethoprim DS] Active Medications Generic Name Dose Route Start Last Admin Trade Name Freq PRN Reason Stop Dose Admin Allopurinol 100 mg 12/01/20 21:21 12/02/20 08:18 Allopurinol 100 Mg Tab PO 12/31/20 21:20 100 mg BID ANY Administration Atorvastatin Calcium 40 mg 12/01/20 21:21 12/01/20 22:27 Atorvastatin 40 Mg Tab PO 12/31/20 21:20 40 mg PM NAY Administration Bupropion HCl 200 mg 12/01/20 21:21 12/02/20 08:17 Bupropion Sr 100 Mg Tabcr PO 12/31/20 21:20 200 mg BID@0700,1300 NAY Administration Buspirone HCl 5 mg 12/01/20 21:12/02/20 08:18 Buspirone 5 Mg Tab PO 12/31/20 21:20 5 mg TID NAY Administration Docusate Sodium 100 mg 12/01/20 21:21 12/02/20 08:16 Docusate Sodium 100 Mg Cap PO 12/31/20 21:20 100 mg BID NAY Administration Duloxetine HCl 40 mg 12/01/20 21:21 12/01/20 22:30 Duloxetine Hcl 20 Mg Cap PO 12/31/20 21:20 40 mg HS NAY Administration Cefepime HCl 2,000 mg/ Syringe 20 mls @ 5 mls/min 12/02/20 06:00 12/02/20 08:16 IV 12/12/20 05:59 5 mls/min Q12H NAY Administration Protocol Lactobacillus Acidoph/Casei/Rhamnos 2 cap 12/02/20 09:00 12/02/20 08:17 Advanced Probiotic 1250 Mg Capsule PO 01/01/21 08:59 2 cap QAM NAY Administration Metoprolol Succinate 12.5 mg 12/01/20 21:21 12/02/20 08:18 Metoprolol Succ 25mg Ext Rel Tab PO 12/31/20 21:20 12.5 mg BID NAY Administration Multivitamins 1 tab 12/02/20 09:00 12/02/20 08:17 Multivitamin Tab PO 01/01/21 08:59 1 tab QAM NAY Administration Nystatin 1 appln 12/01/20 21:21 12/01/20 22:26 Nystatin Powder 15gm Btl EXT 12/31/20 21:20 1 appln BID PRN Administration rash Oxybutynin Chloride 5 mg 12/01/20 21:21 12/02/20 08:17 Oxybutynin Chloride 5 Mg Tab PO 12/31/20 21:20 5 mg BID NAY Administration Oxycodone HCl 5 mg 12/01/20 21:21 12/02/20 08:35 Oxycodone Hcl Ir 5 Mg Tab (Immediate Release) PO 12/15/20 21:20 5 mg Q4 PRN Administration Pain Pantoprazole Sodium 40 mg 12/02/20 09:00 12/02/20 08:18 Pantoprazole 40 Mg Tab PO 01/01/21 08:59 40 mg QAM NAY Administration Vitamin D 2,000 units 12/02/20 09:00 12/02/20 08:16 Cholecalciferol 1,000 Units 25 Mcg Tab PO 01/01/21 08:59 2,000 units DAILY NAY Administration Warfarin Sodium 2 mg 12/01/20 21:21 12/01/20 22:14 Warfarin Sod 2 Mg Tab PO 12/31/20 21:20 Not Given DAILY@1600 REPLACED BY [facility] Past Medical History Medical History Aortic stenosis, severe PAULY 0.62-0.66 cm2 per 08/31/2020 echo. Patient seen by [facility] valve clinic 08/14/20 for possible TAVR, workup initiated with repeat echo, but patient subsequently admitted to [facility] again for urologic issues. 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 Per cardiology consult , "Only mild left ventricular dysfunction and suspect stress mediated etiology rather than acute ischemic event. Patient on appropriate beta-sheryl therapy." Apical wall motion abnormality resolved on 08/04/20 ECHO Atrial fibrillation follows with Michael Bui> NO PACER Bleeding hemorrhoids Carotid artery stenosis [place] , 50%, LICA 50-69% by 04/09/19 doppler Chronic diastolic heart failure CKD (chronic kidney disease), stage III Degenerative disc disease Depression Dyslipidemia Factor 5 Leiden mutation, heterozygous recurrent PE/DVT; status post IVC filter placement, on Coumadin Frequent UTI RECENT HOSPITALIZATION GERD (gastroesophageal reflux disease) [place] filter in place History of COPD "MILD" History of esophageal disorder esophageal diverticulum History of peripheral neuropathy bilateral feet History of stress incontinence Hx of cancer of uterus diagnosed 03/2019---radiation only Hx of gout Hx of iron deficiency anemia Hypertension Intestinal disorder post op malabsorption Non-ST elevation NE (NSTEMI) In setting of acute illness (urosepsis 2/2 obstructing stone) 06/21/20 On anticoagulant therapy warfarin daily NICOLASA on CPAP Pes planus Post traumatic stress disorder Pulmonary embolism hx of bilateral ~2002 2/2 FFL Sleep apnea CPAP Spinal stenosis Stroke 06/03/2019 after I&D left hip--vision loss in left eye--no neurologist Vision abnormalities r peripheral vision loss( posterior ischemic optic neuropathyleft eye), left side altered vision like looking through a screen door Weakness Wheelchair dependence Past Family History Family History Mother , age 91 Heart disease Family hx colonic polyps Father , age 42 Factor V deficiency Myocardial infarction Sister No problems noted. Sister Endometrial cancer Brother Family hx colonic polyps Brother , age 50 Meningitis Brother No problems noted. Brother No problems noted. Son No problems noted. Son No problems noted. Son Colon abnormality Son , in his 30 `s , " girl friend over dosed the patients son " Drug overdose Grandfather (Paternal) Family history of diabetes mellitus Family hx of colon cancer Other No family history of adverse response to anesthesia Past Surgical History Surgical History H/O cystoscopy 06/23/20 and 07/20/20 [facility] History of arthroplasty of left hip 2006 @ [facility]--infected after, multiple sx's History of biopsy of bladder benign History of colonoscopy with polypectomy History of incision and drainage 05/2019 of left hip History of left hip replacement 03[place]2019 [place] [facility] [place] of left shoulder replacement History of right hip replacement 2005 @ [facility] History of tonsillectomy and adenoidectomy History of tooth extraction Hx of gastric bypass 2016 Hx of tubal ligation Hx of umbilical hernia repair mesh inserted S/P colon resection 1984 @ [facility] complete sigmoid removed d/t diverticular disease Social History Smoking Status: Former smoker tobacco type: cigarettes Hx Alcohol Use: No Hx Substance Use: No substance use type: does not use Physical Exam Vital Signs Last Vital Signs Temp 36.9 C 12/02/20 08:28 Pulse 79 12/02/20 08:28 Resp 20 12/02/20 08:28 BP 114/71 12/02/20 08:28 Pulse Ox 96 12/02/20 08:28 Testing Laboratory Results 12/01/20 16:36 12/01/20 16:36 PT 14.6 Seconds (9.0-12.0) H 12/01/20 15:54 INR 1.4 (0.9-1.1) H 12/01/20 15:54 APTT 22.6 Seconds (21.0-31.0) 12/01/20 15:54 Urine Color Yellow 12/01/20 15:10 Urine Appearance Turbid (Clear) A 12/01/20 15:10 Urine pH 8.0 (4.5-7.5) H 12/01/20 15:10 Ur Specific [place] 1.012 (1.000-1.030) 12/01/20 15:10 Urine Protein 1+ (Negative) H 12/01/20 15:10 Urine Glucose (UA) Negative (Negative) 12/01/20 15:10 Urine Ketones Negative (Negative) 12/01/20 15:10 Urine Nitrite Positive (Negative) A 12/01/20 15:10 Ur Leukocyte Esterase 3+ (Negative) H 12/01/20 15:10 Urine WBC (Auto) >30 /hpf (0-5) H 12/01/20 15:10 Urine RBC (Auto) 0-4 /hpf (0-4) 12/01/20 15:10 U Hyaline Cast (Auto) 1-5 /lpf (0-5) 12/01/20 15:10 U Epithel Cells (Auto) >30 /lpf (0-5) H 12/01/20 15:10 Urine Bacteria (Auto) 2+ (Negative) H 12/01/20 15:10 12/01/20 15:10 Urine Culture - Preliminary Urine,Straight Cath Gram negative bacilli Electrocardiogram Date: 11/27/20 Normal sinus rhythm Possible Left atrial enlargement Nonspecific ST and T wave abnormality Abnormal ECG When compared with ECG of 20-SEP-2020 14:01, Premature supraventricular complexes are no longer Present Confirmed by Louis Carballo ([id number]) on 09/27/2020 12:17:41 PM Echocardiogram Date: 12/01/20 EF: 55-59% Valvular Disease: + (severe) grade 1 diastolic dysfunction
[2020-12-02] MEDS ORDERED: ePHEDrine sulfate 50 MG/ML AMP IV PRN (09:09)
[2020-12-02] MEDS ORDERED: ONDANSETRON INJ 2 MG/ML 2 ML VIAL IV PRN (09:09)
[2020-12-02] MEDS ORDERED: ATROPINE SULFATE 0.1 MG/ML 10ML SYR IV PRN (09:09)
[2020-12-02] MEDS ORDERED: fentaNYL citrate 100 MCG/2 ML VIAL IV PRN (09:09)
[2020-12-02] MEDS ORDERED: PROPOFOL IV EMULSION 10 MG/ML 20 ML VIAL IV ONE (09:11)
[2020-12-02] MEDS ORDERED: LIDOCAINE HCL 2% 2 ML VIAL/AMP(20MG/ML) INFIL ONE (09:11)
[2020-12-02] MEDS ORDERED: KETAMINE 50 MG/5 ML SYRINGE ONE (09:12)
[2020-12-02] MEDS ORDERED: MIDAZOLAM HCL 1 MG/ML 2ML VIAL ONE (09:12)
[2020-12-02] MEDS ORDERED: fentaNYL citrate 100 MCG/2 ML VIAL ONE (09:12)
[2020-12-02] MEDS ORDERED: ONDANSETRON INJ 2 MG/ML 2 ML VIAL ONE (09:12)
[2020-12-02 09:21] LABS: INR 1.4 (0.9-1.1); Prothrombin Time 14.3 Seconds (9.0-12.0)
[2020-12-02 09:33] LABS: Hematocrit (blood only) 30.5 % (37-47); Hemoglobin 9.6 g/dL (12.0-16.0); Mean Corpuscular Hemoglobin 28.7 pg (25-34); Mean Corpuscular Hgb Conc 31.5 g/dL (32-36); Mean Platelet Volume 10.6 fL (7.4-10.4); Platelet Count 247 K/uL (130-400); RDW Standard Deviation 58.9 fL (36.4-46.3); Red Blood Count 3.35 M/uL (4.2-5.4); White Blood Count 5.84 K/uL (4.8-10.8)
[2020-12-02 09:41] LABS: BUN Creatinine Ratio 24.8 (10-20); Calcium 8.3 mg/dl (8.5-10.1); Creatinine Clr Calc Pharmacy 33.1 ml/min; Est GFR (African American) 35.9; Est GFR (Non-African American) 30.9
--- NOTE | 2020-12-02 10:01 | Operative Report ---
PG Post Operative Report Pre & Post Diagnosis Pre: Obstruction of left ureter Post: Same Operation Date: 12/02/20 08:00 <No data on this case meets the specified criteria> I identified the patient and participated in the time-out.: Yes Procedure Cystoscopy with aspiration of urine on left with retrograde pyelogram and stent placement. Operation Date: 12/02/20 08:00 <No data on this case meets the specified criteria> Surgeon Albert Castellanos, II, DO Powder Guard None Estimated Blood Loss 1 Findings Consistent with Post-Op Diagnosis Stent placed in good position. Severely purulent urine in bladder and left ureter/kidney Specimens Urine for culture Drains 4.8 Fr Multilength Left 18 Fr coude. Anesthesia Type MAC Complications none Disposition Disposition: Recovery Room Indications Patient with obstruction. Risks and benefits discussed at length. Description of Procedure Patient was consented and brought back to the operating room. Patient was placed under anesthesia in the supine position and moved to the dorsal lithotomy position. Patient was prepped and draped in the regular sterile fashion. A time out was completed. A 30degree Cystoscope was placed into the bladder and the entire bladder was examined. The UO's were identified. Severely purulent urine was noted to drain from the left ureter and within the bladder. Urine sample was aspirated and sent for analysis. The left UO was cannulized with a catheter and a retrograde pyelogram was completed. A wire was then placed. With the wire in place, a 4.8 Fr Double J stent was placed. It was confirmed with fluoroscopy. With the stent in place, the bladder was emptied. The scope was removed. An 18 Fr coude catheter was placed. The patient was cleaned, aroused from anesthesia, and transferred to the pacu in stable condition having tolerated the procedure well with no complications. I was present and participated in all aspects of the procedure. The patient will be monitored in the PACU until transferred. I attest to the content of the Intraoperative Record and any orders documented therein. Any exceptions are noted below.
--- NOTE | 2020-12-02 10:19 | Anesthesiology Progress Note ---
Date of Service December 02, 2020 Anesthesia Post Procedure Vital Signs Vital Signs: Temp Pulse Pulse Resp BP BP Pulse Ox 12/02/20 08:28 36.9 C 79 20 114/71 96 12/02/20 07:25 74 12/02/20 03:02 36.2 C L 81 20 113/61 96 12/01/20 23:42 91 H 12/01/20 23:26 82 18 97 12/01/20 22:11 36.5 C 92 H 18 104/57 L 98 12/01/20 21:21 36.5 C 73 86 16 177/72 H 96 12/01/20 20:29 88 19 98 12/01/20 20:01 86 14 131/77 97 12/01/20 20:00 88 16 98 12/01/20 19:31 82 21 99 12/01/20 19:30 84 17 144/109 H 96 12/01/20 19:00 22 95 12/01/20 18:32 84 16 135/74 96 12/01/20 18:01 84 21 12/01/20 18:00 85 17 124/77 12/01/20 17:30 86 19 128/82 12/01/20 17:26 86 14 125/80 12/01/20 17:00 102 H 13 12/01/20 16:31 86 16 12/01/20 16:30 86 16 12/01/20 16:12 91 H 16 116/71 12/01/20 15:30 85 17 12/01/20 15:00 85 17 12/01/20 14:40 82 19 96 12/01/20 14:39 84 20 130/73 97 12/01/20 14:00 83 14 121/86 98 12/01/20 13:30 82 14 131/82 97 12/01/20 13:19 36.9 C 87 12 142/78 H 94 Pain Intensity Abdomen: Pain Intensity: 5 Left Hip: Pain Intensity: 2 Transfer of Care Handoff Completed per policy Notes Mental Status: alert / awake / arousable and participated in evaluation Patient Amnestic to Procedure: Yes Nausea / Vomiting: adequately controlled Pain: adequately controlled Airway Patency, RR, SpO2: stable & adequate BP & HR: stable & adequate Hydration State: stable & adequate Anesthetic Complications: no major complications apparent and Pt Satisfied with anesthetic care
--- NOTE | 2020-12-02 13:43 | Fluoroscopy Report ---
FL retrograde includes kub HISTORY: 75 years-old Female LEFT SIDED RETROGRADE, STENT PLACEMENT STATUS post placement of a left ureteral stent COMPARISON: CT abdomen and pelvis 12/01/2020 TECHNIQUE: 3 spot fluoroscopic images of the left abdomen were obtained utilizing 78.0 seconds fluoro scopy time FINDINGS: Status post placement of a left ureteral stent which appears in satisfactory positioning. Severe left -sided hydronephrosis redemonstrated. Previously noted ureteral calculi are not identified. Herniorrh aphy changes of the abdomen with surgical clips and suture material the pelvis. IMPRESSION: Status post placement of a left ureteral stent. ACT 112: Negative or not required by law. The above report was generated using voice recognition software. It may contain grammatical, syntax o r spelling errors. Electronically signed by: Ezequiel Denise M.D. 12/02/2020 1:42 PM
[2020-12-02] MEDS: WARFARIN SOD 2 MG TAB PO SCH (15:14)
--- NOTE | 2020-12-02 15:15 | Hospitalist Progress Note ---
Date of Service December 02, 2020 Assessment & Plan (1) UTI (urinary tract infection), bacterial: She was referred by her PCP with weakness secondary to UTI and requiring intravenous antibiotic Has been on cefepime Clinically better today (2) Ureterolithiasis: This is a 74-year-old female who has significant past medical history of chronic diastolic CHF, severe calcific aortic valve stenosis, apical ballooning LV dysfunction, history of ocular CVA, HTN, HLD, factor V Leiden mutation with history of DVT/PE and Marian[place] filter in place on chronic Coumadin therapy, carotid artery stenosis, history of diabetes mellitus, HLD, 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 coli sepsis secondary to obstructive uropathy/renal lithiasis requiring left ureteral stenting who presents to ED secondary to referred by PCP 2/2 to UTI requiring IV antibiotics. continue IV cefepime day #1 consult infectious disease 2/2 to MDR organism - pt is afebrile, wbc wnl no s/sx of SIRS/Sepsis consult urology 2/2 to distal L ureteral calculi- Appreciate urology input and recommendation Status post left ureteral stent placement on 12/02/2020 (3) Chronic diastolic heart failure: (4) Aortic stenosis, severe: Chronic diastolic CHF with apical ballooning syndrome on 06/2020 echo Severe calcific aortic stenosis Follows [facility] cardiology monitor volume status closely, daily weights, strict I and O hold lasix for now, reassess in a.m., resume when able continue metoprolol Remains asymptomatic (5) CKD (chronic kidney disease), stage III: Acute on chronic CKD We will monitor PRP (6) Obstructed, uropathy: a/c ckd stage 3 baseline cr 1.2 bun/cr 40 and 1.67 hold bactrim, lasix and avoid nephrotoxic agents As above We will give a small amount of intravenous fluid and monitor PRP (7) Factor 5 Leiden mutation, heterozygous: History of DVT/PE on long-term anticoagulation INR sub therapeutic Warfarin home regimen 2 mg daily - continue for now will not give increased dose tonight in event pt to require surgical procedure in a.m. We will continue with Coumadin (8) NICOLASA on CPAP: BIPAP at HS 10/8 (9) Wheelchair dependence: Secondary to left periprosthetic hip infection status post removal Currently not on any long-term antibiotics (10) DVT prophylaxis: INR 1.4, continue warfarin repeat INR in a.m. Disposition: admit to [facility] tele Follow up: PCP Dr. Shea upon discharge Admission and Anticipated Discharge Date Admission Date: December 01, 2020 Subjective 12/02/2020 The patient was seen and examined in medical floor She is a status post left ureteral stent insertion and has been feeling better since the surgery Remains weak but denies any other significant symptoms Review of Systems Review of Systems: All systems reviewed and are unremarkable except as noted below Neurologic: + generalized weakness Physical Exam Physical Exam: Lying down comfortably Constitutional: well developed, well nourished and + ill appearing; no acute distress Eyes: PERRL, conjunctivae normal, anicteric sclerae ENMT: external ear and nose normal, oropharynx normal Neck: trachea midline, no thyromegaly Respiratory: no respiratory distress Auscultation: lungs clear to auscultation bilaterally Cardiovascular: Rate/Rhythm: regular rate and regular rhythm Heart Sounds: no murmur Extremities: no edema Gastrointestinal (Abdomen): Inspection/Auscultation: abdomen not distended Percussion/Palpation: abdomen soft; abdomen nontender Musculoskeletal: No acute arthritis in any joints Neurologic: Alert, awake and oriented x3. Generally weak Psychiatric: A+Ox3, euthymic affect Lymphatic: no cervical or axillary lymphadenopathy Results & Data Results & Data ([facility]) Vital Signs (Past 12 Hours) Vital Signs Temp Pulse Pulse Pulse Resp BP BP 12/02/20 12:19 70 12/02/20 11:55 36.8 C 71 18 128/65 12/02/20 11:05 36.4 C L 75 18 154/79 H 12/02/20 10:47 36.4 C L 77 16 141/76 H 12/02/20 10:35 36.8 C 76 15 151/62 H 12/02/20 10:25 78 14 151/72 H 12/02/20 10:15 78 14 160/65 H 12/02/20 10:08 37.5 C 86 18 151/92 H 12/02/20 08:28 36.9 C 79 20 114/71 12/02/20 07:25 74 Pulse Ox 12/02/20 12:19 12/02/20 11:55 93 12/02/20 11:05 91 12/02/20 10:47 98 12/02/20 10:35 98 12/02/20 10:25 100 12/02/20 10:15 100 12/02/20 10:08 100 12/02/20 08:28 96 12/02/20 07:25 Laboratory Results Short CBC 12/01/20 12/01/20 12/01/20 Range/Units 14:10 15:54 16:36 WBC Cancelled Cancelled 7.57 Hgb Cancelled Cancelled 13.5 Hct Cancelled Cancelled 42.3 Plt Count Cancelled Cancelled 286 12/02/20 Range/Units 07:35 WBC 5.84 Hgb 9.6 L D Hct 30.5 L Plt Count 247 BMP 12/01/20 12/01/20 12/02/20 14:10 16:36 07:35 Sodium 136 139 Potassium TNP 4.4 4.0 Chloride 105 106 Carbon Dioxide 24 27 BUN 40 H 40 H Creatinine 1.67 H 1.62 H Glucose 84 64 L Calcium 8.1 L 8.3 L Liver Function 12/01/20 12/01/20 Range/Units 14:10 16:36 Total Bilirubin 0.3 (0.2-1) mg/dl AST 34 (15-37) U/L ALT 34 (12-78) U/L Alkaline Phosphatase 162 H (45-117) U/L Albumin 1.9 L (3.4-5.0) gm/dl Urine 12/01/20 Range/Units 15:10 Urine Color Yellow Urine Appearance Turbid A (Clear) Urine pH 8.0 H (4.5-7.5) Ur Specific [place] 1.012 (1.000-1.030) Urine Protein 1+ H (Negative) Urine Glucose (UA) Negative (Negative) Medications Administered Current Inpatient Medications Acetaminophen (Acetaminophen 325 Mg Tab) 650 mg PO Q4H PRN PRN Reason: Pain or Fever Stop: 12/31/20 21:20 Allopurinol (Allopurinol 100 Mg Tab) 100 mg PO BID NAY Stop: 12/31/20 21:20 Last Admin: 12/02/20 08:18 Dose: 100 mg Documented by: Atorvastatin Calcium (Atorvastatin 40 Mg Tab) 40 mg PO PM NAY Stop: 12/31/20 21:20 Last Admin: 12/01/20 22:27 Dose: 40 mg Documented by: Bupropion HCl (Bupropion Sr 100 Mg Tabcr) 200 mg PO BID@0700,1300 [facility] Stop: 12/31/20 21:20 Last Admin: 12/02/20 13:44 Dose: 200 mg Documented by: Buspirone HCl (Buspirone 5 Mg Tab) 5 mg PO TID [facility] Stop: 12/31/20 21:20 Last Admin: 12/02/20 13:44 Dose: 5 mg Documented by: Docusate Sodium (Docusate Sodium 100 Mg Cap) 100 mg PO BID [facility] Stop: 12/31/20 21:20 Last Admin: 12/02/20 08:16 Dose: 100 mg Documented by: Duloxetine HCl (Duloxetine Hcl 20 Mg Cap) 40 mg PO HS [facility] Stop: 12/31/20 21:20 Last Admin: 12/01/20 22:30 Dose: 40 mg Documented by: Cefepime HCl 2,000 mg/ Syringe 20 mls @ 5 mls/min IV Q12H [facility]; Protocol Stop: 12/12/20 05:59 Last Admin: 12/02/20 08:16 Dose: 5 mls/min Documented by: Lactobacillus Acidoph/Casei/Rhamnos (Advanced Probiotic 1250 Mg Capsule) 2 cap PO QAM [facility] Stop: 01/01/21 08:59 Last Admin: 12/02/20 08:17 Dose: 2 cap Documented by: Metoprolol Succinate (Metoprolol Succ 25mg Ext Rel Tab) 12.5 mg PO BID [facility] Stop: 12/31/20 21:20 Last Admin: 12/02/20 08:18 Dose: 12.5 mg Documented by: Miscellaneous Information (Cefepime Consult Active) 1 ea N/A UD PRN PRN Reason: Consult Stop: 12/31/20 21:35 Multivitamins (Multivitamin Tab) 1 tab PO QAM [facility] Stop: 01/01/21 08:59 Last Admin: 12/02/20 08:17 Dose: 1 tab Documented by: Nystatin (Nystatin Powder 15gm Btl) 1 appln EXT BID PRN PRN Reason: rash Stop: 12/31/20 21:20 Last Admin: 12/01/20 22:26 Dose: 1 appln Documented by: Ondansetron HCl (Ondansetron Inj 2 Mg/Ml 2 Ml Vial) 4 mg IV Q6H PRN PRN Reason: Nausea Stop: 12/31/20 21:20 Oxybutynin Chloride (Oxybutynin Chloride 5 Mg Tab) 5 mg PO BID [facility] Stop: 12/31/20 21:20 Last Admin: 12/02/20 08:17 Dose: 5 mg Documented by: Oxycodone HCl (Oxycodone Hcl Ir 5 Mg Tab (Immediate Release)) 5 mg PO Q4 PRN PRN Reason: Pain Stop: 12/15/20 21:20 Last Admin: 12/02/20 08:35 Dose: 5 mg Documented by: Pantoprazole Sodium (Pantoprazole 40 Mg Tab) 40 mg PO QAM [facility] Stop: 01/01/21 08:59 Last Admin: 12/02/20 08:18 Dose: 40 mg Documented by: Polyethylene Glycol (Polyethylene (Miralax) 17 Gm Pack) 17 gm PO DAILY PRN PRN Reason: Constipation Stop: 12/31/20 21:20 Vitamin D (Cholecalciferol 1,000 Units 25 Mcg Tab) 2,000 units PO DAILY [facility] Stop: 01/01/21 08:59 Last Admin: 12/02/20 08:16 Dose: 2,000 units Documented by: Warfarin Sodium (Warfarin Sod 2 Mg Tab) 2 mg PO DAILY@1600 [facility] Stop: 12/31/20 21:20 Last Admin: 12/01/20 22:14 Dose: Not Given Documented by:
[2020-12-02] MEDS: SODIUM CHLORIDE 0.9% 1000ML 1,000 ML IV SCH (18:41)
[2020-12-02] MEDS: ATORVASTATIN 40 MG TAB PO SCH (20:47)
[2020-12-02] MEDS: DULoxetine HCL 20 MG CAP PO SCH (20:47)
[2020-12-03] MEDS: buPROPion SR 100 MG TABCR PO SCH ×2 (05:57→12:20)
[2020-12-03] MEDS: SODIUM CHLORIDE 0.9% 1000ML 1,000 ML IV SCH ×2 (05:58→23:39)
[2020-12-03] MEDS: CEFEPIME 2,000 MG in SYRINGE 0 ML IV SCH ×2 (05:58→18:53)
[2020-12-03] MEDS ORDERED: LIDOCAINE HCL 2% (LOCAL) INJ 50 ML VIAL ONE (07:21)
[2020-12-03 07:54] LABS: Basophils # (auto) 0.02 K/uL (0-0.2); Basophils % (auto) 0.3 %; Eosinophils # (auto) 0.07 K/uL (0-0.5); Eosinophils % (auto) 1.2 %; Hematocrit (blood only) 29.6 % (37-47); Hemoglobin 9.3 g/dL (12.0-16.0); Lymphocytes # (auto) 0.64 K/uL (1.2-3.4); Lymphocytes % (auto) 11.1 %; Mean Corpuscular Hemoglobin 28.5 pg (25-34); Mean Corpuscular Hgb Conc 31.4 g/dL (32-36); Mean Corpuscular Volume 90.8 fL (80-100); Mean Platelet Volume 10.6 fL (7.4-10.4); Monocytes # (auto) 0.32 K/uL (0.11-0.59); Monocytes % (auto) 5.5 %; Neutrophils # (auto) 4.72 K/uL (1.4-6.5); Neutrophils % (auto) 81.9 %; Platelet Count 197 K/uL (130-400); RDW Coefficient of Variation 17.9 % (11.5-14.5); RDW Standard Deviation 59.4 fL (36.4-46.3); Red Blood Count 3.26 M/uL (4.2-5.4); White Blood Count 5.77 K/uL (4.8-10.8)
[2020-12-03] MEDS: METOPROLOL SUCC 25MG EXT REL TAB PO SCH ×2 (07:58→21:38)
[2020-12-03] MEDS: OXYBUTYNIN CHLORIDE 5 MG TAB PO SCH ×2 (07:58→21:37)
[2020-12-03] MEDS: DOCUSATE SODIUM 100 MG CAP PO SCH ×2 (07:59→21:37)
[2020-12-03] MEDS: CHOLECALCIFEROL 1,000 UNITS 25 MCG TAB PO SCH (07:59)
[2020-12-03] MEDS: allopurinoL 100 MG TAB PO SCH ×2 (07:59→21:37)
[2020-12-03] MEDS: busPIRone 5 MG TAB PO SCH ×3 (07:59→21:37)
[2020-12-03] MEDS: ADVANCED PROBIOTIC 1250 MG CAPSULE PO SCH (08:00)
[2020-12-03] MEDS: MULTIVITAMIN TAB PO SCH (08:01)
[2020-12-03 08:03] LABS: INR 1.4 (0.9-1.1)
[2020-12-03 08:28] LABS: BUN Creatinine Ratio 26.2 (10-20); Creatinine Clr Calc Pharmacy 36.8 ml/min; Est GFR (African American) 41.7; Potassium 3.6 mmol/L (3.5-5.1)
[2020-12-03] MEDS: PANTOprazole 40 MG TAB PO SCH (08:45)
[2020-12-03] MEDS: oxyCODONE HCL IR 5 MG TAB (IMMEDIATE RELEASE) PO PRN ×3 (09:53→23:38)
--- NOTE | 2020-12-03 12:18 | Urology Progress Note ---
Date of Service December 03, 2020 Assessment & Plan (1) UTI (urinary tract infection), bacterial: (2) Obstructed, uropathy: Stop day 1 status post stent placement and catheter placement with aspiration of purulent urine. Severely purulent urine. Patient had large amount of debris within bladder likely dealing with incomplete emptying issues. Patient had intervention for stones less than 2 months ago and when repeat imaging afterwards had no obvious evidence of continued stone disease. Now has 2 new stones that have developed. Concern for possible infectious stone disease other issues. Will likely need prolonged antibiotic course with plans for outpatient follow-up to set up for stone treatment. Will need to maintain stent and catheter for that timeframe. Will await culture for full assessment. We will continue with supportive care. We will continue to monitor. Patient may not have considerable improvement initially due to significant infection. We will need to continue with close monitoring. Once patient is improved can likely be discharged with catheter in stent in place with plans for outpatient follow-up to set up for procedure Admission and Anticipated Discharge Date Admission Date: December 01, 2020 Subjective Postop from stent placement for obstruction issues. Patient had severely purulent urine and a catheter was placed due to large amount of debris within bladder. Patient has been tolerating well. Has noticed some frequency and urgency. Has not had severe pain in the back and flank. Does have occasional burning and irritation. No severe episodes or major changes. No new nausea or vomiting. Had tolerated anesthesia without major problems Review of Systems Review of Systems: All systems reviewed & are unremarkable except as noted in HPI & below Physical Exam Physical Exam: General: Alert in no acute distress. HEENT: Normocephalic Atraumatic. Inspection normal. Cranial Nerves 2-12 Grossly intact. Normal inspection of face. Normal inspection of neck. Psychologic: Normal affect. Respiratory: Nonlabored. No use of accessory muscles. No tachypnea or dyspnea. Cardiovascular: No tachycardia Skin: [place] and Dry. No rashes or visible lesions. Extremities/Lymphatics: No edema Abdomen: Soft Non-distended. No rebound or guarding. : Catheter in place draining cloudy urine. Results & Data ([facility]) Vital Signs (Past 12 Hours) Vital Signs Temp Pulse Pulse Resp BP BP Pulse Ox 12/03/20 08:02 37.5 C 71 18 128/65 93 12/03/20 07:23 68 12/03/20 03:56 36.5 C 79 16 101/71 98 12/03/20 01:00 79 PG Care Time/CCT Total # of Minutes Spent Total Time Spent with Patient: Total time spent is greater than 50% in coordination of care (as documented) at patient's floor/unit and/or counseling patient: Coding Level of Care Code 72929 Subseq Hosp Care Lvl 3 Diagnoses UTI (urinary tract infection), bacterial N39.0; A49.9 Obstructed, uropathy N13.9
--- NOTE | 2020-12-03 13:22 | Hospitalist Progress Note ---
Date of Service December 03, 2020 Assessment & Plan (1) UTI (urinary tract infection), bacterial: She was referred by her PCP with weakness secondary to UTI and requiring intravenous antibiotic Has been on cefepime Clinically better today We will continue current antibiotic and wait for full sensitivity (2) Ureterolithiasis: This is a 74-year-old female who has significant past medical history of chronic diastolic CHF, severe calcific aortic valve stenosis, apical ballooning LV dysfunction, history of ocular CVA, HTN, HLD, factor V Leiden mutation with history of DVT/PE and [place] filter in place on chronic Coumadin therapy, carotid artery stenosis, history of diabetes mellitus, HLD, 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 coli sepsis secondary to obstructive uropathy/renal lithiasis requiring left ureteral stenting who presents to ED secondary to referred by PCP 2/2 to UTI requiring IV antibiotics. continue IV cefepime day #1 consult infectious disease 2/2 to MDR organism - pt is afebrile, wbc wnl no s/sx of SIRS/Sepsis consult urology 2/2 to distal L ureteral calculi- Appreciate urology input and recommendation Status post left ureteral stent placement on 12/02/2020 We will need to have outpatient appointment with urologist for further procedure and removal of the catheter (3) Chronic diastolic heart failure: No acute issue (4) Aortic stenosis, severe: Chronic diastolic CHF with apical ballooning syndrome on 06/2020 echo Severe calcific aortic stenosis Follows [facility] cardiology monitor volume status closely, daily weights, strict I and O hold lasix for now, reassess in a.m., resume when able continue metoprolol Remains asymptomatic (5) CKD (chronic kidney disease), stage III: Acute on chronic CKD We will monitor PRP-creatinine has been improving (6) Obstructed, uropathy: a/c ckd stage 3 baseline cr 1.2 bun/cr 40 and 1.67 hold bactrim, lasix and avoid nephrotoxic agents As above We will give a small amount of intravenous fluid and monitor PRP (7) Factor 5 Leiden mutation, heterozygous: History of DVT/PE on long-term anticoagulation INR sub therapeutic Warfarin home regimen 2 mg daily - continue for now will not give increased dose tonight in event pt to require surgical procedure in a.m. We will continue with Coumadin INR remains subtherapeutic at 1.4 Will increase Coumadin to 4 mg from today and monitor INR (8) NICOLASA on CPAP: BIPAP at HS 10/8 (9) Wheelchair dependence: Secondary to left periprosthetic hip infection status post removal Currently not on any long-term antibiotics (10) DVT prophylaxis: INR 1.4, continue warfarin repeat INR in a.m. Disposition: admit to [facility] tele Follow up: PCP Dr. Shea upon discharge Admission and Anticipated Discharge Date Admission Date: December 01, 2020 Subjective 12/02/2020 The patient was seen and examined in medical floor She is a status post left ureteral stent insertion and has been feeling better since the surgery Remains weak but denies any other significant symptoms 11/29/2020 The patient was seen and examined in medical floor She has been doing much better as of today Complains any fever and/or chills, abdominal pain or back pain, any nausea and or vomiting Her only problem remains to be generally weak and lethargic Review of Systems Review of Systems: All systems reviewed and are unremarkable except as noted below Neurologic: + generalized weakness Physical Exam Physical Exam: Lying down comfortably Constitutional: well developed, well nourished and + ill appearing; no acute distress Eyes: PERRL, conjunctivae normal, anicteric sclerae ENMT: external ear and nose normal, oropharynx normal Neck: trachea midline, no thyromegaly Respiratory: no respiratory distress Auscultation: lungs clear to auscultation bilaterally Cardiovascular: Rate/Rhythm: regular rate and regular rhythm Heart Sounds: no murmur Extremities: no edema Gastrointestinal (Abdomen): Inspection/Auscultation: abdomen not distended Percussion/Palpation: abdomen soft; abdomen nontender Musculoskeletal: No acute arthritis in any joint Neurologic: Alert, awake and oriented x3. Really weak but no focal sensory and motor deficit appreciated Psychiatric: A+Ox3, euthymic affect Lymphatic: no cervical or axillary lymphadenopathy Results & Data Results & Data ([facility]) Vital Signs (Past 12 Hours) Vital Signs Temp Pulse Pulse Resp BP BP Pulse Ox 12/03/20 12:41 36.7 C 84 17 127/78 96 12/03/20 08:02 37.5 C 71 18 128/65 93 12/03/20 07:23 68 12/03/20 03:56 36.5 C 79 16 101/71 98 Laboratory Results Short CBC 12/03/20 Range/Units 07:06 WBC 5.77 (4.8-10.8) K/uL Hgb 9.3 L (12.0-16.0) g/dL Hct 29.6 L (37-47) % Plt Count 197 (130-400) K/uL BMP 12/03/20 07:06 Sodium 139 Potassium 3.6 Chloride 107 Carbon Dioxide 25 BUN 37 H Creatinine 1.43 H Glucose 74 Calcium 8.0 L Medications Administered Current Inpatient Medications Acetaminophen (Acetaminophen 325 Mg Tab) 650 mg PO Q4H PRN PRN Reason: Pain or Fever Stop: 12/31/20 21:20 Allopurinol (Allopurinol 100 Mg Tab) 100 mg PO BID [facility] Stop: 12/31/20 21:20 Last Admin: 12/03/20 07:59 Dose: 100 mg Documented by: Atorvastatin Calcium (Atorvastatin 40 Mg Tab) 40 mg PO PM [facility] Stop: 12/31/20 21:20 Last Admin: 12/02/20 20:47 Dose: 40 mg Documented by: Bupropion HCl (Bupropion Sr 100 Mg Tabcr) 200 mg PO BID@0700,1300 [facility] Stop: 12/31/20 21:20 Last Admin: 12/03/20 12:20 Dose: 200 mg Documented by: Buspirone HCl (Buspirone 5 Mg Tab) 5 mg PO TID [facility] Stop: 12/31/20 21:20 Last Admin: 12/03/20 07:59 Dose: 5 mg Documented by: Docusate Sodium (Docusate Sodium 100 Mg Cap) 100 mg PO BID [facility] Stop: 12/31/20 21:20 Last Admin: 12/03/20 07:59 Dose: 100 mg Documented by: Duloxetine HCl (Duloxetine Hcl 20 Mg Cap) 40 mg PO HS [facility] Stop: 12/31/20 21:20 Last Admin: 12/02/20 20:47 Dose: 40 mg Documented by: Cefepime HCl 2,000 mg/ Syringe 20 mls @ 5 mls/min IV Q12H [facility]; Protocol Stop: 12/12/20 05:59 Last Admin: 12/03/20 05:58 Dose: 5 mls/min Documented by: Sodium Chloride (Nss 1000ml) 1,000 mls @ 80 mls/hr IV .[id number] [facility] Stop: 12/04/20 04:59 Last Infusion: 12/03/20 06:37 Dose: 50 mls/hr Documented by: Lactobacillus Acidoph/Casei/Rhamnos (Advanced Probiotic 1250 Mg Capsule) 2 cap PO QAM [facility] Stop: 01/01/21 08:59 Last Admin: 12/03/20 08:00 Dose: 2 cap Documented by: Metoprolol Succinate (Metoprolol Succ 25mg Ext Rel Tab) 12.5 mg PO BID [facility] Stop: 12/31/20 21:20 Last Admin: 12/03/20 07:58 Dose: 12.5 mg Documented by: Miscellaneous Information (Cefepime Consult Active) 1 ea N/A UD PRN PRN Reason: Consult Stop: 12/31/20 21:35 Multivitamins ([facility]ivitamin Tab) [facility] Stop: 01/01/21 08:59 Last Admin: 12/03/20 08:01 Dose: 1 tab Documented by: Nystatin (Nystatin Powder 15gm Btl) 1 appln EXT BID PRN PRN Reason: rash Stop: 12/31/20 21:20 Last Admin: 12/01/20 22:26 Dose: 1 appln Documented by: Ondansetron HCl (Ondansetron Inj 2 Mg/Ml 2 Ml Vial) 4 mg IV Q6H PRN PRN Reason: Nausea Stop: 12/31/20 21:20 Last Admin: 12/03/20 00:03 Dose: 4 mg Documented by: Oxybutynin Chloride (Oxybutynin Chloride 5 Mg Tab) 5 mg PO BID [facility] Stop: 12/31/20 21:20 Last Admin: 12/03/20 07:58 Dose: 5 mg Documented by: Oxycodone HCl (Oxycodone Hcl Ir 5 Mg Tab (Immediate Release)) 5 mg PO Q4 PRN PRN Reason: Pain Stop: 12/15/20 21:20 Last Admin: 12/03/20 09:53 Dose: 5 mg Documented by: Pantoprazole Sodium (Pantoprazole 40 Mg Tab) 40 mg PO QAM [facility] Stop: 01/01/21 08:59 Last Admin: 12/03/20 08:45 Dose: 40 mg Documented by: Polyethylene Glycol (Polyethylene (Miralax) 17 Gm Pack) 17 gm PO DAILY PRN PRN Reason: Constipation Stop: 12/31/20 21:20 Vitamin D (Cholecalciferol 1,000 Units 25 Mcg Tab) 2,000 units PO DAILY [facility] Stop: 01/01/21 08:59 Last Admin: 12/03/20 07:59 Dose: 2,000 units Documented by: Warfarin Sodium (Warfarin Sod 4 Mg Tab) 4 mg PO DAILY@1600 [facility] Stop: 01/02/21 15:59
[2020-12-03] MEDS ORDERED: WARFARIN SOD 4 MG TAB PO SCH (16:00)
[2020-12-03] MEDS: DULoxetine HCL 20 MG CAP PO SCH (21:36)
[2020-12-03] MEDS: ATORVASTATIN 40 MG TAB PO SCH (21:38)
[2020-12-03] MEDS ORDERED: Nursing to Pharmacy Communication SCH (22:15)
[2020-12-04] MEDS: CEFEPIME 2,000 MG in SYRINGE 0 ML IV SCH ×2 (05:35→18:40)
[2020-12-04] MEDS: buPROPion SR 100 MG TABCR PO SCH ×2 (05:39→13:36)
[2020-12-04 07:54] LABS: Prothrombin Time 20.1 Seconds (9.0-12.0)
[2020-12-04] MEDS: OXYBUTYNIN CHLORIDE 5 MG TAB PO SCH ×2 (08:00→21:12)
[2020-12-04] MEDS: DOCUSATE SODIUM 100 MG CAP PO SCH ×2 (08:00→21:09)
[2020-12-04] MEDS: busPIRone 5 MG TAB PO SCH ×3 (08:00→21:11)
[2020-12-04] MEDS: CHOLECALCIFEROL 1,000 UNITS 25 MCG TAB PO SCH (08:01)
[2020-12-04] MEDS: ADVANCED PROBIOTIC 1250 MG CAPSULE PO SCH (08:01)
[2020-12-04] MEDS: allopurinoL 100 MG TAB PO SCH ×2 (08:01→21:10)
[2020-12-04] MEDS: PANTOprazole 40 MG TAB PO SCH (08:01)
[2020-12-04] MEDS: MULTIVITAMIN TAB PO SCH (08:01)
[2020-12-04] MEDS: METOPROLOL SUCC 25MG EXT REL TAB PO SCH ×2 (08:02→21:10)
[2020-12-04 08:25] LABS: BUN Creatinine Ratio 25.5 (10-20); Calcium 7.3 mg/dl (8.5-10.1); Creatinine Clr Calc Pharmacy 40.9 ml/min; Est GFR (African American) 46.8; Est GFR (Non-African American) 40.4; Potassium 3.7 mmol/L (3.5-5.1)
--- NOTE | 2020-12-04 09:59 | Urology Progress Note ---
Date of Service December 04, 2020 Assessment & Plan (1) Left ureteral stone: 75 yo F POD #2 s/p cystoscopy and left stent placement secondary to 2 distal left ureteral calculi, moderate left hydro. - Subjectively improving - Afebrile, lab work reviewed - creatinine improved to 1.3, WBC 5.77 (12/03), Hgb 9.3 (12/03) - UC&S on admission grew out Morganella morganii - on IV cefepime at present - Operative UC&S from ureter is showing prelim gram negative bacilli - follow cultures - Continue supportive care, maintain Ramírez catheter - She reports intermittent bladder spasms - Recommend continue oxybutynin - currently scheduled BID, can increase to TID prn, can also add prn Pyridium - Recommend initiate more aggressive bowel regimen as needed for BM - Patient will need follow-up with our service outpatient to discuss definitive stone management - Will continue to follow while inpatient Admission and Anticipated Discharge Date Admission Date: December 01, 2020 Subjective 75 yo F POD #2 s/p cystoscopy and left stent placement. Pt seen and examined at bedside this AM. Awake, alert and sitting up in bed. Reports no issues overnight. Reports intermittent low back pain and occasional bladder spasm/discomfort. Tolerating Ramírez catheter - Ramírez intact, patent and draining cloudy light yellow urine. Tolerating diet, though reports low appetite. No nausea or vomiting. She reports her last BM was day of or day prior to admission. No fever or chills. Chart review: Afebrile. Creatinine 1.30, WBC 5.77 (12/03), Hgb 9.3 (12/03). On IV Cefepime. Operative UC&S, ureter - prelim gram negative bacilli. Review of Systems Constitutional: as per Subjective / HPI Gastrointestinal: as per Subjective / HPI Genitourinary: as per Subjective / HPI Physical Exam Constitutional: well developed, well nourished and + morbidly obese; no acute distress Respiratory: normal respiratory effort and able to speak in complete sentences; no respiratory distress and no labored breathing Gastrointestinal (Abdomen): Inspection/Auscultation: abdomen normal to inspection; abdomen not distended Percussion/Palpation: abdomen soft; abdomen nontender and no guarding Musculoskeletal: Head/Neck/Chest: normocephalic and head atraumatic Genitourinary: no CVA tenderness Ramírez catheter intact, patent, draining cloudy light yellow urine Results & Data ([facility]) Vital Signs (Past 12 Hours) Vital Signs Temp Pulse Pulse Resp BP Pulse Ox 12/04/20 07:31 36.4 C L 61 19 101/64 98 12/04/20 07:22 70 12/04/20 03:43 36.7 C 72 18 105/41 L 97 12/04/20 00:00 78 12/03/20 22:22 36.7 C 73 18 137/65 99 PG Care Time/CCT Total # of Minutes Spent Total Time Spent with Patient: Total time spent is greater than 50% in coordination of care (as documented) at patient's floor/unit and/or counseling patient: Coding Level of Care Code 95911 Subseq Hosp Care Lvl 2 Diagnoses Left ureteral stone N20.1
[2020-12-04] MEDS: oxyCODONE HCL IR 5 MG TAB (IMMEDIATE RELEASE) PO PRN ×3 (10:26→21:09)
[2020-12-04] MEDS: POLYETHYLENE (MIRALAX) 17 GM PACK PO PRN (10:29)
--- NOTE | 2020-12-04 15:10 | Hospitalist Progress Note ---
Date of Service December 04, 2020 Assessment & Plan (1) UTI (urinary tract infection), bacterial: She was referred by her PCP with weakness secondary to UTI and requiring intravenous antibiotic Has been on cefepime Clinically better today We will continue current antibiotic and wait for full sensitivity Denies any symptoms except some back pain Still awaiting sensitivity for correct antibiotics to be used on discharge (2) Ureterolithiasis: This is a 74-year-old female who has significant past medical history of chronic diastolic CHF, severe calcific aortic valve stenosis, apical ballooning LV dysfunction, history of ocular CVA, HTN, HLD, factor V Leiden mutation with history of DVT/PE and [place] filter in place on chronic Coumadin therapy, carotid artery stenosis, history of diabetes mellitus, HLD, 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 coli sepsis secondary to obstructive uropathy/renal lithiasis requiring left ureteral stenting who presents to ED secondary to referred by PCP 2/2 to UTI requiring IV antibiotics. continue IV cefepime day #1 consult infectious disease 2/2 to MDR organism - pt is afebrile, wbc wnl no s/sx of SIRS/Sepsis consult urology 2/2 to distal L ureteral calculi- Appreciate urology input and recommendation Status post left ureteral stent placement on 12/02/2020 We will need to have outpatient appointment with urologist for further procedure and removal of the catheter (3) Chronic diastolic heart failure: No acute issue (4) Aortic stenosis, severe: Chronic diastolic CHF with apical ballooning syndrome on 06/2020 echo Severe calcific aortic stenosis Follows [facility] cardiology monitor volume status closely, daily weights, strict I and O hold lasix for now, reassess in a.m., resume when able continue metoprolol Remains asymptomatic (5) CKD (chronic kidney disease), stage III: Acute on chronic CKD We will monitor PRP-creatinine has been improving (6) Obstructed, uropathy: a/c ckd stage 3 baseline cr 1.2 bun/cr 40 and 1.67 hold bactrim, lasix and avoid nephrotoxic agents As above We will give a small amount of intravenous fluid and monitor PRP Creatinine is improved at 1.30 has a 12/04/2020 (7) Factor 5 Leiden mutation, heterozygous: History of DVT/PE on long-term anticoagulation INR sub therapeutic Warfarin home regimen 2 mg daily - continue for now will not give increased dose tonight in event pt to require surgical procedure in a.m. We will continue with Coumadin INR remains subtherapeutic at 1.4 Will increase Coumadin to 4 mg from today and monitor INR INR is 2.0 today and we will continue with Coumadin 2 mg daily as an outpatient dose (8) NCIOLASA on CPAP: BIPAP at HS 10/8 (9) Wheelchair dependence: Secondary to left periprosthetic hip infection status post removal Currently not on any long-term antibiotics (10) DVT prophylaxis: INR 1.4, continue warfarin repeat INR in a.m. Disposition: admit to [facility] Follow up: PCP Dr. Shea upon discharge Admission and Anticipated Discharge Date Admission Date: December 01, 2020 Subjective 12/02/2020 The patient was seen and examined in medical floor She is a status post left ureteral stent insertion and has been feeling better since the surgery Remains weak but denies any other significant symptoms 12/03/2020 The patient was seen and examined in medical floor She has been doing much better as of today Complains any fever and/or chills, abdominal pain or back pain, any nausea and or vomiting Her only problem remains to be generally weak and lethargic 12/04/2020 The patient was seen and examined in medical floor She has been complaining of back pain likely secondary to lying in bed and denies any other symptoms No fever and/or chills, no abdominal pain, nausea and/or vomiting Review of Systems Review of Systems: All systems reviewed and are unremarkable except as noted below Neurologic: + generalized weakness Physical Exam Physical Exam: Lying down with some back pain Constitutional: well developed, well nourished, + ill appearing and + obese; no acute distress Eyes: PERRL, conjunctivae normal, anicteric sclerae ENMT: external ear and nose normal, oropharynx normal Neck: trachea midline, no thyromegaly Respiratory: no respiratory distress Auscultation: lungs clear to auscultation bilaterally Cardiovascular: Rate/Rhythm: regular rate and regular rhythm Heart Sounds: no murmur Extremities: no edema Gastrointestinal (Abdomen): Inspection/Auscultation: abdomen not distended Percussion/Palpation: abdomen soft; abdomen nontender Musculoskeletal: No acute arthritis in any joint Neurologic: Alert, awake and oriented x3. Generally weak, no focal sensory and motor deficit appreciated Psychiatric: A+Ox3, euthymic affect Lymphatic: no cervical or axillary lymphadenopathy Results & Data Results & Data ([facility]) Vital Signs (Past 12 Hours) Vital Signs Temp Pulse Pulse Resp BP Pulse Ox 12/04/20 14:44 36.6 C 84 20 128/82 95 12/04/20 11:38 36.6 C 79 19 134/78 96 12/04/20 07:31 36.4 C L 61 19 101/64 98 12/04/20 07:22 70 12/04/20 03:43 36.7 C 72 18 105/41 L 97 Laboratory Results BMP 12/04/20 07:16 Sodium 140 Potassium 3.7 Chloride 109 H Carbon Dioxide 24 BUN 33 H Creatinine 1.30 H Glucose 73 Calcium 7.3 L Medications Administered Current Inpatient Medications Acetaminophen (Acetaminophen 325 Mg Tab) 650 mg PO Q4H PRN PRN Reason: Pain or Fever Stop: 12/31/20 21:20 Allopurinol (Allopurinol 100 Mg Tab) 100 mg PO BID NAY Stop: 12/31/20 21:20 Last Admin: 12/04/20 08:01 Dose: 100 mg Documented by: Atorvastatin Calcium (Atorvastatin 40 Mg Tab) 40 mg PO PM NAY Stop: 12/31/20 21:20 Last Admin: 12/03/20 21:38 Dose: 40 mg Documented by: Bupropion HCl (Bupropion Sr 100 Mg Tabcr) 200 mg PO BID@0700,1300 NAY Stop: 12/31/20 21:20 Last Admin: 12/04/20 13:36 Dose: 200 mg Documented by: Buspirone HCl (Buspirone 5 Mg Tab) 5 mg PO TID NAY Stop: 12/31/20 21:20 Last Admin: 12/04/20 13:36 Dose: 5 mg Documented by: Docusate Sodium (Docusate Sodium 100 Mg Cap) 100 mg PO BID NAY Stop: 12/31/20 21:20 Last Admin: 12/04/20 08:00 Dose: 100 mg Documented by: Duloxetine HCl (Duloxetine Hcl 20 Mg Cap) 40 mg PO HS NAY Stop: 12/31/20 21:20 Last Admin: 01/24/21 21:36 Dose: 40 mg Documented by: Cefepime HCl 2,000 mg/ Syringe 20 mls @ 5 mls/min IV Q12H [facility]; Protocol Stop: 12/12/20 05:59 Last Admin: 12/04/20 05:35 Dose: 5 mls/min Documented by: Lactobacillus Acidoph/Casei/Rhamnos (Advanced Probiotic 1250 Mg Capsule) 2 cap PO QAM [facility] Stop: 01/01/21 08:59 Last Admin: 12/04/20 08:01 Dose: 2 cap Documented by: Metoprolol Succinate (Metoprolol Succ 25mg Ext Rel Tab) 12.5 mg PO BID [facility] Stop: 12/31/20 21:20 Last Admin: 12/04/20 08:02 Dose: 12.5 mg Documented by: Miscellaneous Information (Cefepime Consult Active) 1 ea N/A UD PRN PRN Reason: Consult Stop: 12/31/20 21:35 Multivitamins (Multivitamin Tab) [facility] Stop: 01/01/21 08:59 Last Admin: 12/04/20 08:01 Dose: 1 tab Documented by: Nystatin (Nystatin Powder 15gm Btl) 1 appln EXT BID PRN PRN Reason: rash Stop: 12/31/20 21:20 Last Admin: 12/01/20 22:26 Dose: 1 appln Documented by: Ondansetron HCl (Ondansetron Inj 2 Mg/Ml 2 Ml Vial) 4 mg IV Q6H PRN PRN Reason: Nausea Stop: 12/31/20 21:20 Last Admin: 12/03/20 00:03 Dose: 4 mg Documented by: Oxybutynin Chloride (Oxybutynin Chloride 5 Mg Tab) 5 mg PO BID [facility] Stop: 12/31/20 21:20 Last Admin: 12/04/20 08:00 Dose: 5 mg Documented by: Oxycodone HCl (Oxycodone Hcl Ir 5 Mg Tab (Immediate Release)) 5 mg PO Q4 PRN PRN Reason: Pain Stop: 12/15/20 21:20 Last Admin: 12/04/20 10:26 Dose: 5 mg Documented by: Pantoprazole Sodium (Pantoprazole 40 Mg Tab) 40 mg PO QAM [facility] Stop: 01/01/21 08:59 Last Admin: 12/04/20 08:01 Dose: 40 mg Documented by: Polyethylene Glycol (Polyethylene (Miralax) 17 Gm Pack) 17 gm PO DAILY PRN PRN Reason: Constipation Stop: 12/31/20 21:20 Last Admin: 12/04/20 10:29 Dose: 17 gm Documented by: Vitamin D (Cholecalciferol 1,000 Units 25 Mcg Tab) 2,000 units PO DAILY [facility] Stop: 01/01/21 08:59 Last Admin: 12/04/20 08:01 Dose: 2,000 units Documented by: Warfarin Sodium (Warfarin Sod 4 Mg Tab) 4 mg PO DAILY@1600 [facility] Stop: 01/02/21 15:59 Last Admin: 12/03/20 16:13 Dose: 4 mg Documented by:
[2020-12-04] MEDS: WARFARIN SOD 2 MG TAB PO SCH (16:46)
[2020-12-04] MEDS: ATORVASTATIN 40 MG TAB PO SCH (21:11)
[2020-12-04] MEDS: DULoxetine HCL 20 MG CAP PO SCH (21:11)
[2020-12-05] MEDS: buPROPion SR 100 MG TABCR PO SCH ×2 (06:20→13:49)
[2020-12-05] MEDS: CEFEPIME 2,000 MG in SYRINGE 0 ML IV SCH (06:20)
[2020-12-05 07:37] LABS: Basophils # (auto) 0.03 K/uL (0-0.2); Basophils % (auto) 0.6 %; Eosinophils # (auto) 0.16 K/uL (0-0.5); Eosinophils % (auto) 3.1 %; Hematocrit (blood only) 29.7 % (37-47); Hemoglobin 9.2 g/dL (12.0-16.0); Lymphocytes # (auto) 0.74 K/uL (1.2-3.4); Lymphocytes % (auto) 14.5 %; Mean Corpuscular Hemoglobin 28.5 pg (25-34); Mean Platelet Volume 11.1 fL (7.4-10.4); Monocytes # (auto) 0.29 K/uL (0.11-0.59); Monocytes % (auto) 5.7 %; Neutrophils # (auto) 3.89 K/uL (1.4-6.5); Neutrophils % (auto) 76.1 %; Platelet Count 163 K/uL (130-400); RDW Coefficient of Variation 17.8 % (11.5-14.5); RDW Standard Deviation 59.9 fL (36.4-46.3); Red Blood Count 3.23 M/uL (4.2-5.4); White Blood Count 5.11 K/uL (4.8-10.8)
[2020-12-05 07:53] LABS: INR 2.8 (0.9-1.1); Prothrombin Time 27.5 Seconds (9.0-12.0)
[2020-12-05 08:08] LABS: BUN Creatinine Ratio 27.7 (10-20); Creatinine Clr Calc Pharmacy 47.5 ml/min; Est GFR (African American) 56.7; Est GFR (Non-African American) 48.9; Potassium 3.8 mmol/L (3.5-5.1)
--- NOTE | 2020-12-05 08:40 | Urology Progress Note ---
Date of Service December 05, 2020 Assessment & Plan (1) Ureterolithiasis: S/P left ureteral stent placement cultures - initial Ucx grew bact; 2nd Ucx same bacteria, but also yeast (contam?) has likely had a skin fungal infection leading me to suspect this may have been a contaminant on cefepime; topical nystatin - no iv/pos antifungals (uncertain they are necessary) Cr now 1.11 leukocytosis resolved given clinical improvement, plan for d/c home on oral abx seems very reasonable when deemed appropriate by the medical team Admission and Anticipated Discharge Date Admission Date: December 01, 2020 Subjective Feeling much better today Creatinine has returned to baseline No leukocytosis, no fevers, hemodynamically stable Physical Exam Constitutional: well developed and well nourished Respiratory: no respiratory distress Cardiovascular: Extremities: no pedal edema Gastrointestinal (Abdomen): Inspection/Auscultation: abdomen normal to inspe ction Results & Data ([facility]) Vital Signs (Past 12 Hours) Vital Signs Temp Pulse Pulse Resp BP BP Pulse Ox 12/05/20 07:44 36.5 C 69 18 131/70 97 12/05/20 07:00 63 12/05/20 04:48 76 12/05/20 03:52 36.5 C 69 18 116/57 L 99 12/04/20 23:18 36.5 C 85 18 139/66 95 PG Care Time/CCT Total # of Minutes Spent Total Time Spent with Patient: Total time spent is greater than 50% in coordination of care (as documented) at patient's floor/unit and/or counseling patient: Coding Level of Care Code 08911 Subseq Hosp Care Lvl 2 Diagnoses Ureterolithiasis N20.1
[2020-12-05] MEDS: MULTIVITAMIN TAB PO SCH (08:46)
[2020-12-05] MEDS: METOPROLOL SUCC 25MG EXT REL TAB PO SCH ×2 (08:46→21:17)
[2020-12-05] MEDS: DOCUSATE SODIUM 100 MG CAP PO SCH ×2 (08:47→21:15)
[2020-12-05] MEDS: ADVANCED PROBIOTIC 1250 MG CAPSULE PO SCH (08:48)
[2020-12-05] MEDS: PANTOprazole 40 MG TAB PO SCH (08:48)
[2020-12-05] MEDS: allopurinoL 100 MG TAB PO SCH ×2 (08:48→21:17)
[2020-12-05] MEDS: CHOLECALCIFEROL 1,000 UNITS 25 MCG TAB PO SCH (08:49)
[2020-12-05] MEDS: OXYBUTYNIN CHLORIDE 5 MG TAB PO SCH ×2 (08:49→21:16)
[2020-12-05] MEDS: busPIRone 5 MG TAB PO SCH ×3 (08:49→21:15)
[2020-12-05] MEDS: oxyCODONE HCL IR 5 MG TAB (IMMEDIATE RELEASE) PO PRN ×3 (08:56→17:27)
[2020-12-05] MEDS: ERTAPENEM SODIUM 1,000 MG in SODIUM CHLORIDE 0.9% 50 ML IV SCH (11:26)
[2020-12-05] MEDS: POLYETHYLENE (MIRALAX) 17 GM PACK PO PRN (12:40)
--- NOTE | 2020-12-05 13:17 | Hospitalist Progress Note ---
Date of Service December 05, 2020 Assessment & Plan (1) UTI (urinary tract infection), bacterial: She was referred by her PCP with weakness secondary to UTI and requiring intravenous antibiotic Has been on cefepime Clinically better today We will continue current antibiotic and wait for full sensitivity Denies any symptoms except some back pain Still awaiting sensitivity for correct antibiotics to be used on discharge Appreciate ID input and recommendation Will start ertapenem 1 g daily to continue for a total of 14 days from 24th of this month PICC/midline has been ordered Likely discharge tomorrow (2) Ureterolithiasis: This is a 74-year-old female who has significant past medical history of chronic diastolic CHF, severe calcific aortic valve stenosis, apical ballooning LV dysfunction, history of ocular CVA, HTN, HLD, factor V Leiden mutation with history of DVT/PE and [place] filter in place on chronic Coumadin therapy, carotid artery stenosis, history of diabetes mellitus, HLD, 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 coli sepsis secondary to obstructive uropathy /renal lithiasis requiring left ureteral stenting who presents to ED secondary to referred by PCP 2/2 to UTI requiring IV antibiotics. continue IV cefepime consult infectious disease 2/2 to MDR organism - pt is afebrile, wbc wnl no s/sx of SIRS/Sepsis consult urology 2/2 to distal L ureteral calculi- Appreciate urology input and recommendation Status post left ureteral stent placement on 12/02/2020 We will need to have outpatient appointment with urologist for further procedure and removal of the catheter (3) Chronic diastolic heart failure: No acute issue (4) Aortic stenosis, severe: Chronic diastolic CHF with apical ballooning syndrome on 06/2020 echo Severe calcific aortic stenosis Follows [facility] cardiology monitor volume status closely, daily weights, strict I and O hold lasix for now, reassess in a.m., resume when able continue metoprolol Remains asymptomatic (5) CKD (chronic kidney disease), stage III: Acute on chronic CKD We will monitor PRP-creatinine has been improving (6) Obstructed, uropathy: a/c ckd stage 3 baseline cr 1.2 bun/cr 40 and 1.67 hold bactrim, lasix and avoid nephrotoxic agents As above We will give a small amount of intravenous fluid and monitor PRP Creatinine is improved at 1.30 has a 12/04/2020 (7) Factor 5 Leiden mutation, heterozygous: History of DVT/PE on long-term anticoagulation INR sub therapeutic Warfarin home regimen 2 mg daily - continue for now will not give increased dose tonight in event pt to require surgical procedure in a.m. We will continue with Coumadin INR remains subtherapeutic at 1.4 Will increase Coumadin to 4 mg from today and monitor INR INR is 2.0 today and we will continue with Coumadin 2 mg daily as an outpatient dose INR is 2.8 today-we will continue current dose of Coumadin (8) NICOLASA on CPAP: BIPAP at HS 08/17 (9) Wheelchair dependence: Secondary to left periprosthetic hip infection status post removal Currently not on any long-term antibiotics (10) DVT prophylaxis: INR 1.4, continue warfarin repeat INR in a.m. Disposition: admit [facility] Follow up: PCP Dr. Shea upon discharge Admission and Anticipated Discharge Date Admission Date: December 01, 2020 Subjective 12/02/2020 The patient was seen and examined in medical floor She is a status post left ureteral stent insertion and has been feeling better since the surgery Remains weak but denies any other significant symptoms 12/03/2020 The patient was seen and examined in medical floor She has been doing much better as of today Complains any fever and/or chills, abdominal pain or back pain, any nausea and or vomiting Her only problem remains to be generally weak and lethargic 12/04/2020 The patient was seen and examined in medical floor She has been complaining of back pain likely secondary to lying in bed and denies any other symptoms No fever and/or chills, no abdominal pain, nausea and/or vomiting 12/05/2020 The patient was seen and examined in medical floor She has been feeling much better today Complains today of some nonspecific pain involving the lower extremities Denies any fever and/or chills, no nausea and or vomiting Review of Systems Review of Systems: All systems reviewed and are unremarkable except as noted below Musculoskeletal: + back pain Nonspecific discomfort/pain involving the lower extremities Physical Exam Physical Exam: Lying down with some back pain Constitutional: well developed, well nourished, + ill appearing and + obese; no acute distress Eyes: PERRL, conjunctivae normal, anicteric sclerae ENMT: external ear and nose normal, oropharynx normal Neck: trachea midline, no thyromegaly Respiratory: no respiratory distress Auscultation: lungs clear to auscultation bilaterally Cardiovascular: Rate/Rhythm: regular rate and regular rhythm Heart Sounds: no murmur Extremities: + edema (Trace edema on the right and 1+ edema on the left) Gastrointestinal (Abdomen): Inspection/Auscultation: abdomen not distended Percussion/Palpation: abdomen soft; abdomen nontender Musculoskeletal: No acute arthritis in any joint Neurologic: Alert, awake and oriented x3. Generally weak. Almost bedbound Psychiatric: A+Ox3, euthymic affect Lymphatic: no cervical or axillary lymphadenopathy Results & Data Results & Data ([facility]) Vital Signs (Past 12 Hours) Vital Signs Temp Pulse Pulse Resp BP Pulse Ox 12/05/20 11:33 36.8 C 75 20 113/73 96 12/05/20 07:44 36.5 C 69 18 131/70 97 12/05/20 07:00 63 12/05/20 04:48 76 12/05/20 03:52 36.5 C 69 18 116/57 L 99 Laboratory Results Short CBC 12/05/20 Range/Units 07:26 WBC 5.11 (4.8-10.8) K/uL Hgb 9.2 L (12.0-16.0) g/dL Hct 29.7 L (37-47) % Plt Count 163 (130-400) K/uL BMP 12/05/20 07:26 Sodium 138 Potassium 3.8 Chloride 109 H Carbon Dioxide 24 BUN 31 H Creatinine 1.11 Glucose 70 Calcium 8.0 L Medications Administered Current Inpatient Medications Acetaminophen (Acetaminophen 325 Mg Tab) 650 mg PO Q4H PRN PRN Reason: Pain or Fever Stop: 12/31/20 21:20 Allopurinol (Allopurinol 100 Mg Tab) 100 mg PO BID NAY Stop: 12/31/20 21:20 Last Admin: 12/05/20 08:48 Dose: 100 mg Documented by: Atorvastatin Calcium (Atorvastatin 40 Mg Tab) 40 mg PO PM NAY Stop: 12/31/20 21:20 Last Admin: 12/04/20 21:11 Dose: 40 mg Documented by: Bupropion HCl (Bupropion Sr 100 Mg Tabcr) 200 mg PO BID@0700,1300 [facility] Stop: 12/31/20 21:20 Last Admin: 12/05/20 06:20 Dose: 200 mg Documented by: Buspirone HCl (Buspirone 5 Mg Tab) 5 mg PO TID [facility] Stop: 12/31/20 21:20 Last Admin: 12/05/20 08:49 Dose: 5 mg Documented by: Docusate Sodium (Docusate Sodium 100 Mg Cap) 100 mg PO BID [facility] Stop: 12/31/20 21:20 Last Admin: 12/05/20 08:47 Dose: 100 mg Documented by: Duloxetine HCl (Duloxetine Hcl 20 Mg Cap) 40 mg PO HS [facility] Stop: 12/31/20 21:20 Last Admin: 12/04/20 21:11 Dose: 40 mg Documented by: Ertapenem 1,000 mg/ Sodium (Chloride) 60 mls @ 100 mls/hr IV Q24H [facility] Stop: 12/15/20 10:59 Last Infusion: 12/05/20 12:02 Dose: Infused Documented by: Lactobacillus Acidoph/Casei/Rhamnos (Advanced Probiotic 1250 Mg Capsule) 2 cap PO QAM [facility] Stop: 01/01/21 08:59 Last Admin: 12/05/20 08:48 Dose: 2 cap Documented by: Metoprolol Succinate (Metoprolol Succ 25mg Ext Rel Tab) 12.5 mg PO BID [facility] Stop: 12/31/20 21:20 Last Admin: 12/05/20 08:46 Dose: 12.5 mg Documented by: Multivitamins (Multivitamin Tab) 1 tab PO QAM [facility] Stop: 01/01/21 08:59 Last Admin: 12/05/20 08:46 Dose: 1 tab Documented by: Nystatin (Nystatin Powder 15gm Btl) 1 appln EXT BID PRN PRN Reason: rash Stop: 12/31/20 21:20 Last Admin: 12/01/20 22:26 Dose: 1 appln Documented by: Ondansetron HCl (Ondansetron Inj 2 Mg/Ml 2 Ml Vial) 4 mg IV Q6H PRN PRN Reason: Nausea Stop: 12/31/20 21:20 Last Admin: 12/03/20 00:03 Dose: 4 mg Documented by: Oxybutynin Chloride (Oxybutynin Chloride 5 Mg Tab) 5 mg PO BID [facility] Stop: 12/31/20 21:20 Last Admin: 12/05/20 08:49 Dose: 5 mg Documented by: Oxycodone HCl (Oxycodone Hcl Ir 5 Mg Tab (Immediate Release)) 5 mg PO Q4 PRN PRN Reason: Pain Stop: 12/15/20 21:20 Last Admin: 12/05/20 12:39 Dose: 5 mg Documented by: Pantoprazole Sodium (Pantoprazole 40 Mg Tab) 40 mg PO QAM [facility] Stop: 01/01/21 08:59 Last Admin: 12/05/20 08:48 Dose: 40 mg Documented by: Polyethylene Glycol (Polyethylene (Miralax) 17 Gm Pack) 17 gm PO DAILY PRN PRN Reason: Constipation Stop: 12/31/20 21:20 Last Admin: 12/05/20 12:40 Dose: 17 gm Documented by: Vitamin D (Cholecalciferol 1,000 Units 25 Mcg Tab) 2,000 units PO DAILY [facility] Stop: 01/01/21 08:59 Last Admin: 12/05/20 08:49 Dose: 2,000 units Documented by: Warfarin Sodium (Warfarin Sod 2 Mg Tab) 2 mg PO DAILY@1600 [facility] Stop: 01/02/21 15:59 Last Admin: 12/04/20 16:46 Dose: 2 mg Documented by:
[2020-12-05] MEDS: WARFARIN SOD 2 MG TAB PO SCH (17:27)
[2020-12-05] MEDS: ATORVASTATIN 40 MG TAB PO SCH (21:15)
[2020-12-05] MEDS: DULoxetine HCL 20 MG CAP PO SCH (21:16)
[2020-12-06] MEDS: buPROPion SR 100 MG TABCR PO SCH ×2 (06:27→13:21)
[2020-12-06 07:22] LABS: Basophils # (auto) 0.04 K/uL (0-0.2); Basophils % (auto) 0.7 %; Eosinophils % (auto) 1.8 %; Hematocrit (blood only) 31.1 % (37-47); Hemoglobin 9.6 g/dL (12.0-16.0); Immature Granulocytes # (auto) 0.01 K/uL (0.00-0.02); Immature Granulocytes % (auto) 0.2 %; Lymphocytes % (auto) 14.7 %; Mean Corpuscular Hemoglobin 28.5 pg (25-34); Mean Corpuscular Hgb Conc 30.9 g/dL (32-36); Mean Corpuscular Volume 92.3 fL (80-100); Mean Platelet Volume 11.1 fL (7.4-10.4); Monocytes # (auto) 0.33 K/uL (0.11-0.59); Monocytes % (auto) 6.1 %; Neutrophils # (auto) 4.16 K/uL (1.4-6.5); Neutrophils % (auto) 76.5 %; Platelet Count 193 K/uL (130-400); Red Blood Count 3.37 M/uL (4.2-5.4); White Blood Count 5.44 K/uL (4.8-10.8)
[2020-12-06 07:28] LABS: INR 2.7 (0.9-1.1); Prothrombin Time 26.9 Seconds (9.0-12.0)
[2020-12-06] MEDS: METOPROLOL SUCC 25MG EXT REL TAB PO SCH (07:38)
[2020-12-06] MEDS: DOCUSATE SODIUM 100 MG CAP PO SCH (07:39)
[2020-12-06] MEDS: busPIRone 5 MG TAB PO SCH ×2 (07:39→13:21)
[2020-12-06] MEDS: OXYBUTYNIN CHLORIDE 5 MG TAB PO SCH (07:39)
[2020-12-06] MEDS: ADVANCED PROBIOTIC 1250 MG CAPSULE PO SCH (07:39)
[2020-12-06] MEDS: PANTOprazole 40 MG TAB PO SCH (07:40)
[2020-12-06] MEDS: MULTIVITAMIN TAB PO SCH (07:40)
[2020-12-06] MEDS: allopurinoL 100 MG TAB PO SCH (07:40)
[2020-12-06] MEDS: CHOLECALCIFEROL 1,000 UNITS 25 MCG TAB PO SCH (07:40)
[2020-12-06 07:44] VITALS: PULSE 69
[2020-12-06 07:59] LABS: BUN Creatinine Ratio 25.7 (10-20); Calcium 7.9 mg/dl (8.5-10.1); Creatinine Clr Calc Pharmacy 49.3 ml/min; Est GFR (African American) 57.9
[2020-12-06] MEDS: oxyCODONE HCL IR 5 MG TAB (IMMEDIATE RELEASE) PO PRN ×2 (09:07→13:23)
[2020-12-06] MEDS: ERTAPENEM SODIUM 1,000 MG in SODIUM CHLORIDE 0.9% 50 ML IV SCH (10:55)
--- NOTE | 2020-12-06 11:38 | Hospitalist Progress Note ---
Date of Service December 06, 2020 Assessment & Plan (1) UTI (urinary tract infection), bacterial: She was referred by her PCP with weakness secondary to UTI and requiring intravenous antibiotic Has been on cefepime Clinically better today We will continue current antibiotic and wait for full sensitivity Denies any symptoms except some back pain Still awaiting sensitivity for correct antibiotics to be used on discharge Appreciate ID input and recommendation Will start ertapenem 1 g daily to continue for a total of 14 days from of this month PICC/midline has been ordered-placed Has recurrent UTI with obstructive uropathyleft hydroureteral nephrosis with stone Urine culture grew Morganella morganii which is resistant to multiple drugs We will continue with intravenous ertapenem 1 g daily to complete total of 14 days of antibiotic from 12/03/2020 as per ID recommendation from [place] She will be discharged today (2) Ureterolithiasis: This is a 74-year-old female who has significant past medical history of chronic diastolic CHF, severe calcific aortic valve stenosis, apical ballooning LV dysfunction, history of ocular CVA, HTN, HLD, factor V Leiden mutation with history of DVT/PE and [place] filter in place on chronic Coumadin therapy, carotid artery stenosis, history of diabetes mellitus, HLD, 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 coli sepsis secondary to obstructive uropathy/renal lithiasis requiring left ureteral stenting who presents to ED secondary to referred by PCP 2/2 to UTI requiring IV antibiotics. continue IV cefepime consult infectious disease 2/2 to MDR organism - pt is afebrile, wbc wnl no s/sx of SIRS/Sepsis consult urology 2/2 to distal L ureteral calculi- Appreciate urology input and recommendation Status post left ureteral stent placement on 12/02/2020 We will need to have outpatient appointment with urologist for further procedure and removal of the catheter (3) Chronic diastolic heart failure: No acute issue (4) Aortic stenosis, severe: Chronic diastolic CHF with apical ballooning syndrome on 06/2020 echo Severe calcific aortic stenosis Follows [facility] cardiology monitor volume status closely, daily weights, strict I and O hold lasix for now, reassess in a.m., resume when able continue metoprolol Remains asymptomatic (5) CKD (chronic kidney disease), stage III: Acute on chronic CKD We will monitor PRP-creatinine has been improving Creatinine has been normalized (6) Obstructed, uropathy: a/c ckd stage 3 baseline cr 1.2 bun/cr 40 and 1.67 hold bactrim, lasix and avoid nephrotoxic agents As above We will give a small amount of intravenous fluid and monitor PRP Creatinine is improved at 1.30 has a 12/04/2020-normal as of 12/06/2020 (7) Factor 5 Leiden mutation, heterozygous: History of DVT/PE on long-term anticoagulation INR sub therapeutic Warfarin home regimen 2 mg daily - continue for now will not give increased dose tonight in event pt to require surgical procedure in a.m. We will continue with Coumadin INR remains subtherapeutic at 1.4 Will increase Coumadin to 4 mg from today and monitor INR INR is 2.0 today and we will continue with Coumadin 2 mg daily as an outpatient dose INR is 2.8 today-we will continue current dose of Coumadin INR is therapeutic and will continue the outpatient dose of Coumadin (8) NICOLASA on CPAP: BIPAP at HS 10/ (9) Wheelchair dependence: Secondary to left periprosthetic hip infection status post removal Currently not on any long-term antibiotics (10) DVT prophylaxis: INR 1.4, continue warfarin repeat INR in a.m. Disposition: admit to [facility] tele Follow up: PCP Dr. Shea upon discharge Admission and Anticipated Discharge Date Admission Date: December 01, 2020 Subjective 12/02/2020 The patient was seen and examined in medical floor She is a status post left ureteral stent insertion and has been feeling better since the surgery Remains weak but denies any other significant symptoms 12/03/2020 The patient was seen and examined in medical floor She has been doing much better as of today Complains any fever and/or chills, abdominal pain or back pain, any nausea and or vomiting Her only problem remains to be generally weak and lethargic 12/04/2020 The patient was seen and examined in medical floor She has been complaining of back pain likely secondary to lying in bed and denies any other symptoms No fever and/or chills, no abdominal pain, nausea and/or vomiting 12/05/2020 The patient was seen and examined in medical floor She has been feeling much better today Complains today of some nonspecific pain involving the lower extremities Denies any fever and/or chills, no nausea and or vomiting 12/06/2020 The patient was seen and examined in medical floor She has been feeling much better today and denies any symptoms involving the legs as of yesterday She has had PICC line and got her first dose of ertapenem today Denies any other significant symptoms Be discharged this afternoon Review of Systems Review of Systems: All systems reviewed and are unremarkable except as noted below Musculoskeletal: no back pain Nonspecific discomfort/pain involving the lower extremities Neurologic: + generalized weakness Physical Exam Physical Exam: Lying down with some back pain Constitutional: well developed, well nourished, + ill appearing and + obese; no acute distress Eyes: PERRL, conjunctivae normal, anicteric sclerae ENMT: external ear and nose normal, oropharynx normal Neck: trachea midline, no thyromegaly Respiratory: no respiratory distress Auscultation: lungs clear to auscultation bilaterally Cardiovascular: Rate/Rhythm: regular rate and regular rhythm Heart Sounds: no murmur Extremities: + edema (Trace edema on the right and 1+ edema on the left) Gastrointestinal (Abdomen): Inspection/Auscultation: abdomen not distended Percussion/Palpation: abdomen soft; abdomen nontender Musculoskeletal: No acute arthritis in any joint Neurologic: Alert, awake and oriented x3. Generally weak. Bedbound status Psychiatric: A+Ox3, euthymic affect Lymphatic: no cervical or axillary lymphadenopathy Results & Data Results & Data ([facility]) Vital Signs (Past 12 Hours) Vital Signs Temp Pulse Pulse Resp BP Pulse Ox 12/06/20 08:30 69 12/06/20 07:44 36.6 C 69 18 110/71 96 12/06/20 03:49 36.4 C L 74 20 113/74 97 12/06/20 02:10 82 Laboratory Results Short CBC 12/06/20 Range/Units 07:03 WBC 5.44 (4.8-10.8) K/uL Hgb 9.6 L (12.0-16.0) g/dL Hct 31.1 L (37-47) % Plt Count 193 (130-400) K/uL BMP 12/06/20 07:03 Sodium 138 Potassium 4.0 Chloride 108 H Carbon Dioxide 25 BUN 28 H Creatinine 1.09 Glucose 66 L Calcium 7.9 L Medications Administered Current Inpatient Medications Acetaminophen (Acetaminophen 325 Mg Tab) 650 mg PO Q4H PRN PRN Reason: Pain or Fever Stop: 12/31/20 21:20 Allopurinol (Allopurinol 100 Mg Tab) 100 mg PO BID [facility] Stop: 12/31/20 21:20 Last Admin: 12/06/20 07:40 Dose: 100 mg Documented by: Atorvastatin Calcium (Atorvastatin 40 Mg Tab) 40 mg PO PM NAY Stop: 12/31/20 21:20 Last Admin: 12/05/20 21:15 Dose: 40 mg Documented by: Bupropion HCl (Bupropion Sr 100 Mg Tabcr) 200 mg PO BID@0700,1300 [facility] Stop: 12/31/20 21:20 Last Admin: 12/06/20 06:27 Dose: 200 mg Documented by: Buspirone HCl (Buspirone 5 Mg Tab) 5 mg PO TID [facility] Stop: 12/31/20 21:20 Last Admin: 12/06/20 07:39 Dose: 5 mg Documented by: Docusate Sodium (Docusate Sodium 100 Mg Cap) 100 mg PO BID [facility] Stop: 12/31/20 21:20 Last Admin: 12/06/20 07:39 Dose: 100 mg Documented by: Duloxetine HCl (Duloxetine Hcl 20 Mg Cap) 40 mg PO HS [facility] Stop: 12/31/20 21:20 Last Admin: 12/05/20 21:16 Dose: 40 mg Documented by: Ertapenem 1,000 mg/ Sodium (Chloride) 60 mls @ 100 mls/hr IV Q24H [facility] Stop: 12/15/20 10:59 Last Admin: 12/06/20 10:55 Dose: 100 mls/hr Documented by: Lactobacillus Acidoph/Casei/Rhamnos (Advanced Probiotic 1250 Mg Capsule) 2 cap PO QAM [facility] Stop: 01/01/21 08:59 Last Admin: 12/06/20 07:39 Dose: 2 cap Documented by: Metoprolol Succinate (Metoprolol Succ 25mg Ext Rel Tab) 12.5 mg PO BID [facility] Stop: 12/31/20 21:20 Last Admin: 12/06/20 07:38 Dose: 12.5 mg Documented by: Multivitamins (Multivitamin Tab) 1 tab PO QAM [facility] Stop: 01/01/21 08:59 Last Admin: 12/06/20 07:40 Dose: 1 tab Documented by: Nystatin (Nystatin Powder 15gm Btl) 1 appln EXT BID PRN PRN Reason: rash Stop: 12/31/20 21:20 Last Admin: 12/01/20 22:26 Dose: 1 appln Documented by: Ondansetron HCl (Ondansetron Inj 2 Mg/Ml 2 Ml Vial) 4 mg IV Q6H PRN PRN Reason: Nausea Stop: 12/31/20 21:20 Last Admin: 12/03/20 00:03 Dose: 4 mg Documented by: Oxybutynin Chloride (Oxybutynin Chloride 5 Mg Tab) 5 mg PO BID NAY Stop: 12/31/20 21:20 Last Admin: 12/06/20 07:39 Dose: 5 mg Documented by: Oxycodone HCl (Oxycodone Hcl Ir 5 Mg Tab (Immediate Release)) 5 mg PO Q4 PRN PRN Reason: Pain Stop: 12/15/20 21:20 Last Admin: 12/06/20 09:07 Dose: 5 mg Documented by: Pantoprazole Sodium (Pantoprazole 40 Mg Tab) 40 mg PO QAM NAY Stop: 01/01/21 08:59 Last Admin: 12/06/20 07:40 Dose: 40 mg Documented by: Polyethylene Glycol (Polyethylene (Miralax) 17 Gm Pack) 17 gm PO DAILY PRN PRN Reason: Constipation Stop: 12/31/20 21:20 Last Admin: 12/05/20 12:40 Dose: 17 gm Documented by: Vitamin D (Cholecalciferol 1,000 Units 25 Mcg Tab) 2,000 units PO DAILY NAY Stop: 01/01/21 08:59 Last Admin: 12/06/20 07:40 Dose: 2,000 units Documented by: Warfarin Sodium (Warfarin Sod 2 Mg Tab) 2 mg PO DAILY@1600 [facility] Stop: 01/02/21 15:59 Last Admin: 12/05/20 17:27 Dose: 2 mg Documented by:
[2020-12-06 12:38] VITALS: BP 110/76; TEMP 97.2; O2SAT 97
--- NOTE | 2020-12-07 08:20 | Discharge Summary ---
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 coli sepsis secondary to obstructive uropath y/renal lithiasis requiring left ureteral stenting who presents to ED secondary to referred by PCP 2/2 to UTI requiring IV antibiotics. Currently complains of extreme fatigue, nausea, dysuria, constipation and she finally had a BM today after 5 days. Denies f/c/s, dizziness, lightheaded, chest pain, sob, cough, URI sx, nausea, vomiting, diarrhea, melena, hematochezia. She was told to come to ER because her UA was positive for UTI and required IV antibiotics. Previously had been on bactrim w/o improvement. Of significance pt has hx of recurrent UTI and nephrolithiasis. In 09/2020 she required cysto with stent placement. Stent was removed 11/06/[address] Sanchez. Urinalysis in outpatient setting grew greater than 100,000 Morganella Morganii sensitive to only cefepime, Zosyn and meropenem. She does live at home with her son and is wheelchair-bound. In ED patient did undergo CT scan abdomen pelvis which reveals at least 2 distal left ureteral calculi measuring up to 5 mm causing moderate left-sided hydrouteronephrosis. She was afebrile and her WBC was WNL. INR subtherapeutic at 1.4. She had mild elevation BUN/creatinine 40 and 1.67. Her last dose of Bactrim was this morning. In ED she received IV cefepime. Admission Exam Per Admitting Provider Physical Exam: Constitutional: Chronically ill-appearing female, obese, vitals as above, NAD, sitting up in bed, decent bed mobility, pleasant, conversing easily answers questions appropriately Head: Normocephalic, Atraumatic Eyes: PERRL, conjunctivae normal, anicteric sclerae ENMT: external ear and nose normal, oropharynx normal Neck: trachea midline, no thyromegaly normal visual inspection Respiratory: normal respiratory effort, lungs clear to auscultation, no wheeze, rales, rhonchi. Normal insp/exp effort, no accessory muscle use Cardiovascular: RRR, harsh 3/6 JAMAL noted RUSB, bilateral lower extremity nonpitting edema Vessels: no JVD or carotid bruit Chest: normal inspection of chest Abdomen: normal bowel sounds, soft, nontender, no hepatosplenomegaly Musculoskeletal: no cyanosis or clubbing, bilateral upper extremities 5/5, left lower extremity 2/5, right lower extremity 3/5, left lower extremity with foot eversion Skin: no rashes, warm and dry normal turgor Neurologic: PERRL, EOMI, accommodation nl, no face palsy, no dysarthria CN's II-XI intact bilaterally and moves all extremities Psychiatric: A+Ox3, euthymic affect : deferred Principal Diagnosis Recurrent UTI with obstructive uropathy, status post left ureteral stent placement on 12/02/2020, chronic diastolic heart failure, heterozygous factor V Leiden mutation, wheelchair dependence Discharge Exam Constitutional well developed, well nourished, + ill appearing and + obese; no acute distress Eyes PERRL, conjunctivae normal, anicteric sclerae ENMT external ear and nose normal, oropharynx normal Neck trachea midline, no thyromegaly Respiratory no respiratory distress Auscultation: lungs clear to auscultation bilaterally Cardiovascular Rate/Rhythm: regular rate and regular rhythm Heart Sounds: no murmur Extremities: + edema (Trace edema on the right and 1+ edema on the left) Gastrointestinal (Abdomen) Inspection/Auscultation: abdomen not distended Percussion/Palpation: abdomen soft; abdomen nontender Psychiatric A+Ox3, euthymic affect Lymphatic no cervical or axillary lymphadenopathy Discharge Data Allergies Allergy/AdvReac Type Severity Reaction Status Date / Time adhesive Allergy Intermediate BLISTERS Verified 12/01/20 15:55 WITH STERI-STRIPS Iodinated Contrast Media Allergy Intermediate hive Verified 12/01/20 15:55 [Iodinated Contrast- Oral and IV Dye] naproxen Allergy Intermediate SWELLING - Verified 12/01/20 15:55 TOLERATES ESTEVES-[address] HALL ciprofloxacin Allergy Mild RASH Verified 12/01/20 15:55 Quinolones Allergy Mild NEUROLOGIC Verified 12/01/20 15:55 SYMPTOMS Consultations 12/01/20 17:50 ED Decision to Admit Stat 12/01/20 21:21 Consult Case Management - Discharge Planning Routine Consult Infectious Diseases Routine Consult Urology Routine Procedures Performed Operation Date: 12/02/20 08:00 Actual Procedures p Cystoscopy - Albert Castellanos DO s Left Ureteral Stent Insertion(Left) - Albert Castellanos DO Ordered Studies 12/01/20 13:54 CT abd pelvis wo con Stat 12/02/20 [place] retrograde includes kub Routine Hospital Course (1) UTI (urinary tract infection), bacterial: She was referred by her PCP with weakness secondary to UTI and requiring intravenous antibiotic Has been on cefepime Clinically better today We will continue current antibiotic and wait for full sensitivity Denies any symptoms except some back pain Still awaiting sensitivity for correct antibiotics to be used on discharge Appreciate ID input and recommendation Will start ertapenem 1 g daily to continue for a total of 14 days from of this month PICC/midline has been ordered-placed Has recurrent UTI with obstructive uropathyleft hydroureteral nephrosis with stone Urine culture grew Morganella morganii which is resistant to multiple drugs We will continue with intravenous ertapenem 1 g daily to complete total of 14 days of antibiotic from 12/03/2020 as per ID recommendation from [place] She will be discharged today (2) Ureterolithiasis: This is a 74-year-old female who has significant past medical history of chronic diastolic CHF, severe calcific aortic valve stenosis, apical ballooning LV dysfunction, history of ocular CVA, HTN, HLD, factor V Leiden mutation with history of DVT/PE and [place] filter in place on chronic Coumadin therapy, carotid artery stenosis, history of diabetes mellitus, HLD, 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 coli sepsis secondary to obstructive uropathy/renal lithiasis requiring left ureteral stenting who presents to ED secondary to referred by PCP 2/2 to UTI requiring IV antibiotics. continue IV cefepime consult infectious disease 2/2 to MDR organism - pt is afebrile, wbc wnl no s/sx of SIRS/Sepsis consult urology 2/2 to distal L ureteral calculi- Appreciate urology input and recommendation Status post left ureteral stent placement on 12/02/2020 We will need to have outpatient appointment with urologist for further procedure and removal of the catheter (3) Chronic diastolic heart failure: No acute issue (4) Aortic stenosis, severe: Chronic diastolic CHF with apical ballooning syndrome on 06/2020 echo Severe calcific aortic stenosis Follows [facility] cardiology monitor volume status closely, daily weights, strict I and O hold lasix for now, reassess in a.m., resume when able continue metoprolol Remains asymptomatic (5) CKD (chronic kidney disease), stage III: Acute on chronic CKD We will monitor PRP-creatinine has been improving Creatinine has been normalized (6) Obstructed, uropathy: a/c ckd stage 3 baseline cr 1.2 bun/cr 40 and 1.67 hold bactrim, lasix and avoid nephrotoxic agents As above We will give a small amount of intravenous fluid and monitor PRP Creatinine is improved at 1.30 has a 12/04/2020-normal as of 12/06/2020 (7) Factor 5 Leiden mutation, heterozygous: History of DVT/PE on long-term anticoagulation INR sub therapeutic Warfarin home regimen 2 mg daily - continue for now will not give increased dose tonight in event pt to require surgical procedure in a.m. We will continue with Coumadin INR remains subtherapeutic at 1.4 Will increase Coumadin to 4 mg from today and monitor INR INR is 2.0 today and we will continue with Coumadin 2 mg daily as an outpatient dose INR is 2.8 today-we will continue current dose of Coumadin INR is therapeutic and will continue the outpatient dose of Coumadin (8) NICOLASA on CPAP: BIPAP at HS 10/ (9) Wheelchair dependence: Secondary to left periprosthetic hip infection status post removal Currently not on any long-term antibiotics (10) DVT prophylaxis: INR 1.4, continue warfarin repeat INR in a.m. Disposition: admit to [facility] tele Follow up: PCP Dr. Shea upon discharge Total Time Total Time Spent Total Time Spent (In Minutes): 40 minutes Total Time Includes: Examination of the Patient, Discharge Planning, Medication Reconciliation and Communication With Other Providers Discharge Plan Discharge Items Patient Disposition: Home - Home Health Services Reason For Visit: UTI, URETERAL CALCULI Discharge Diagnosis: Recurrent UTI with obstructive uropathy, status post left ureteral stent placement on 12/02/2020, chronic diastolic heart failure, heterozygous factor V Leiden mutation, wheelchair dependence Condition on Discharge: Fair Activity: Resume your previous activity Non-emergency contact: Primary Care Provider Call non-emergency contact if: you have any medication questions and your symptoms worsen Follow-up/Referrals: Crispin Sanchez MD [Physician] - 12/13/20 4:40 pm ([facility] [address] [place] [address] ) Sadi Shea DO [Primary Care Provider] - (Date & Time 12/11/2020 11:20 AM Provider Sadi Shea DO Department General Internal Medicine [facility] ) Diet: Heart Healthy Ambulatory Orders: Complete Blood Count with Diff (Routine) Timeframe: 1 Week Location: Determined by Patient Ordered By: Janett Lyman Comprehensive Metabolic Panel (Routine) Timeframe: 1 Week Location: Determined by Patient Ordered By: Janett Lyman Addtl Attending Provider Instructions: Please take precaution to avoid falls Finish the course of intravenous antibiotic as advised Please keep follow-up appointment with your urologist Please have regular follow-up appointment with coagulation clinic Pending Studies at Discharge: No Stand-Alone Forms: My [facility] [place] [facility], Smoking Cessation Medications and DC Order Prescriptions: Continued furosemide [Lasix] 40 mg tablet 40 mg PO QAM RF: 0 metoprolol succinate 25 mg Tablet Extended Release 24 Hr 12.5 mg PO BID RF: 0 Flintstones Complete Tablet,Chewable 1 tab PO QAM RF: 0 calcium carbonate [Tums Extra Strength Smoothies] 300 mg (750 mg) Tablet,Chewable 750 mg PO UD PRN (Reason: Heartburn) RF: 0 omeprazole 20 mg Tablet,Delayed Release (Dr/Ec) 20 mg PO QAM RF: 0 nystatin 100,000 unit/gram powder 1 appln TOP BID PRN (Reason: rash) RF: 0 atorvastatin 40 mg Tablet 40 mg PO PM RF: 0 oxybutynin chloride 5 mg Tablet 5 mg PO BID RF: 0 bupropion HCl [Wellbutrin SR] 200 mg Tablet Sustained-Release 12 Hr 200 mg PO BID RF: 0 oxycodone [Roxicodone] 5 mg Tablet 5 mg PO Q4 PRN (Reason: Pain) RF: 0 buspirone 5 mg Tablet 5 mg PO TID RF: 0 ondansetron 4 mg Tablet,Disintegrating 4 mg PO Q8H PRN (Reason: Nausea) RF: 0 allopurinol 100 mg Tablet 100 mg PO BID RF: 0 duloxetine [Cymbalta] 20 mg Capsule,Delayed Release(Dr/Ec) 40 mg PO HS RF: 0 cyanocobalamin (vitamin B-12) 1,000 mcg/mL Kit 1,000 mcg IM UD RF: 0 potassium chloride [K-Tab] 10 mEq tablet extended release 10 meq PO BID RF: 0 Probiotic 3 billion cell Capsule 3,000 mmu cells PO QAM RF: 0 warfarin 4 mg Tablet 2 mg PO DAILY RF: 0 phenazopyridine [Pyridium] 200 mg tablet 200 mg PO Q8H PRN (Reason: pain) Qty: 10 RF: 0 loperamide 2 mg Capsule 2 mg PO Q4H PRN (Reason: Diarrhea) RF: 0 docusate sodium 100 mg Tablet 100 mg PO BID RF: 0 cholecalciferol (vitamin D3) 50 mcg (2,000 unit) Tablet 50 mcg PO DAILY RF: 0 Discontinued sulfamethoxazole-trimethoprim [Sulfamethoprim DS] 800-160 mg Tablet 1 tab PO BID RF: 0 Discharge Orders: Discharge Order (Routine); Ordered 12/06/20 Ordered By: Janett Lyman Admission Data Admit Date/Time: 12/01/20 18:15 Attending Provider: Janett Lyman Admit Provider: Anuja Iqbal I. Primary Care Provider: Sadi Shea Other Providers: Anuja Iqbal I. ; Jeovany Mosher ; Bernadine Chowdhury ; Kelby Velasquez I. ; Horace Kruse II ; Starla Hart ; Michael Harrison ; Albert Castellanos ; [facility] Other Interventions: Discharge Summary Assessment (RN) Last Done: 12/06/20 11:53
== END 2020-12-06 15:01 | disposition home health service (06) | DRG 660 ==
LOC: ED 13:11 → 2W 18:15 → SUATTDRO 18:15 → 2W 20:29

== ENCOUNTER 2020-12-08 00:29 | Inpatient (IN) ==
[2020-12-08] MEDS ORDERED: fentaNYL citrate 100 MCG/2 ML VIAL IV ONE (01:01)
[2020-12-08 01:06] LABS: Basophils # (auto) 0.02 K/uL (0-0.2); Basophils % (auto) 0.2 %; Eosinophils # (auto) 0.04 K/uL (0-0.5); Eosinophils % (auto) 0.5 %; Hematocrit (blood only) 33.4 % (37-47); Hemoglobin 10.6 g/dL (12.0-16.0); Immature Granulocytes # (auto) 0.01 K/uL (0.00-0.02); Immature Granulocytes % (auto) 0.1 %; Lymphocytes # (auto) 0.67 K/uL (1.2-3.4); Lymphocytes % (auto) 7.7 %; Mean Corpuscular Hemoglobin 28.8 pg (25-34); Mean Corpuscular Hgb Conc 31.7 g/dL (32-36); Mean Corpuscular Volume 90.8 fL (80-100); Monocytes # (auto) 0.45 K/uL (0.11-0.59); Monocytes % (auto) 5.2 %; Neutrophils # (auto) 7.54 K/uL (1.4-6.5); Neutrophils % (auto) 86.3 %; Platelet Count 242 K/uL (130-400); Red Blood Count 3.68 M/uL (4.2-5.4); White Blood Count 8.73 K/uL (4.8-10.8)
--- NOTE | 2020-12-08 01:11 | Emergency Department Note ---
Impression & Plan Weakness, GI bleed ED Provider Note NAME: RAHEEM POSADAS AGE: 75 SEX: F ARRIVES VIA: Ambulance INFORMANT: Patient ED PROVIDER(S): Sangeeta Medrano DO CHIEF COMPLAINT: Weakness; low back pain PLAN: Disposition: Admitted to the [facility] service Condition: Stable MEDICAL DECISION MAKING: This is a 75-year-old female patient who was recently discharged from the hospital after having a ureteral stent placed by Dr. Sanchez. Patient presents to the emergency department by EMS tonight for increasing weakness and GI bleeding. According to the patient's son, the patient has an 8-month history of GI bleeding but the weakness is progressively worsening. The patient's son explains that she has never been worked up in the past for this crampy abdominal pain and GI bleeding. The patient was just discharged from the hospital yesterday after being admitted for recurrent urinary tract infection with obstructive uropathy and ureteral stent placement. Patient was discharged home on IV antibiotics. The patient became very weak at home and the son describes that she had very painful bowel movements and there was significant GI bleeding. The son is concerned that the patient may have been discharged home too early from her recent admission. He describes GI bleeding that has never been looked into and he is concerned about her profound weakness. Triage Nursing notes reviewed and agree them. Additional history obtained from the patient's son by phone. The nursing staff called the son and he gave a history stating that he did not feel that the patient was ready for discharge from the hospital earlier. She has become more weak. The GI bleeding has been a problem for the past 8 months and continues. She has been having painful bowel movements and that the stools have been dark in color and bloody. Prior medical records reviewed Vital Signs: reviewed and remarkable for no significant abnormalities Differential diagnosis: Hypoglycemia, dehydration, anemia, colitis, hemorrhoidal bleeding, C. difficile, volvulus ER treatment provided: IV fentanyl Diagnostics interpreted by me: ECG: Normal sinus rhythm at a rate of 85. There is no ST segment elevation or signs of ischemia. There is some ST segment depression in leads I and aVL. However, this is unchanged from EKG reviewed from September 20, 2020. There is no ectopy. Cardiac Monitoring: Normal sinus rhythm at a rate of 80 Laboratory studies: See below HPI: 75/F arrives for evaluation of weakness. Patient states that she has become increasingly weak since she was discharged from the hospital after having a ureteral stent placed. Patient has a history of GI bleeding and has had persistent dark stools and bloody bowel movements with abdominal pain during her bowel movements over the past 24 hours. ROS: See above HPI for pertinent positives & negatives. A total of 10 systems reviewed and were otherwise negative. PAST MEDICAL HISTORY:See Below PAST SURGICAL HISTORY:See Below FAMILY HISTORY:See Below SOCIAL HISTORY:See Below HOME MEDICATIONS:See list ALLERGIES:See list VITALS:See Below PHYSICAL EXAMINATION: HEENT: Head - normocephalic and atraumatic Pupils are equal, round, and reactive to light. Extraocular eye muscles are intact, and sclera are anicteric. Nose - moist nasal mucosa without discharge. Mouth - moist buccal mucosa. Oropharynx is nonerythematous and there is no tonsillar exudate or edema noted. Neck: Supple; no JVD, nuchal rigidity, cervical lymphadenopathy, or auscultated bruits. Heart: Regular rate and rhythm. There is a 3/6 blowing systolic ejection murmur Lungs: Clear to auscultation bilaterally with no wheezes, rales, or rhonchi. Abdomen: Soft, completely nontender, nondistended, with good bowel sounds. There are no palpable pulsatile masses or hepatosplenomegaly. There is no guarding, rigidity, or rebound noted. Extremities: No evidence of cyanosis, clubbing, or edema. There are easily palpable peripheral pulses. PICC line in the left upper extremity Skin: warm and dry with good turgor and no rashes. Rectal: Soft yellow/brown stool if and Hemoccult tested positive ED COURSE: Times/Reassessments: 0040: The patient was evaluated in room A 11. An order was placed for continuous cardiac monitoring. The patient was in a normal sinus rhythm at a rate of 80. Laboratory studies were drawn as above. Previous electronic medical records were reviewed. Nursing staff contacted the patient's son with regards to the amount of rectal bleeding. The patient stated that she did not see the rectal bleeding but that the son had described it. A twelve-lead EKG was obtained. Patient was typed and screened for blood. The patient was given 25 mcg of IV fentanyl for some low back pain. The patient's vital signs remained stable. 0155: I examined the patient again at this time and performed a rectal exam. The stool was yellow/brown and soft. I did Hemoccult tested and it was positive. I discussed the case with the assistant office manager and she reviewed the patient's inpatient case management notes. She contacted the patient's son and he explained that he was concerned about the GI bleed note the patient has had over the past 8 months and explained that it has not been looked into. He also explains that the patient has a history of iron deficiency anemia. I reevaluated the patient at this time and she states that the pain medications have helped with her low back pain and that she feels ok. I will discussed the case with the [facility] and they can evaluate for further management. Sangeeta Medrano, Past Med/Surg History Medical History Aortic stenosis, severe PAULY 0.62-0.66 cm2 per 08/31/2020 echo. Patient seen by [facility] valve clinic 08/14/20 for possible TAVR, workup initiated with repeat echo, but patient subsequently admitted to [facility] again for urologic issues. 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 Per cardiology consult , "Only mild left ventricular dys function and suspect stress mediated etiology rather than acute ischemic event. Patient on appropriate beta-sheryl therapy." Apical wall motion abnormality resolved on 08/04/20 ECHO Atrial fibrillation follows with Michael Bui> NO PACER Bleeding hemorrhoids Carotid artery stenosis [place] , 50%, LICA 50-69% by 04/09/19 doppler Chronic diastolic heart failure CKD (chronic kidney disease), stage III Degenerative disc disease Depression Dyslipidemia Factor 5 Leiden mutation, heterozygous recurrent PE/DVT; status post IVC filter placement, on Coumadin Frequent UTI RECENT HOSPITALIZATION GERD (gastroesophageal reflux disease) [place] filter in place History of COPD "MILD" History of esophageal disorder esophageal diverticulum History of peripheral neuropathy bilateral feet History of stress incontinence Hx of cancer of uterus diagnosed 03/2019---radiation only Hx of gout Hx of iron deficiency anemia Hypertension Intestinal disorder post op malabsorption Non-ST elevation ID (NSTEMI) In setting of acute illness (urosepsis 2/2 obstructing stone) 06/21/20 On anticoagulant therapy warfarin daily NICOLASA on CPAP Pes planus Post traumatic stress disorder Pulmonary embolism hx of bilateral ~2003 2/2 FFL Sleep apnea CPAP Spinal stenosis Stroke 06/03/2019 after I&D left hip--vision loss in left eye--no neurologist Vision abnormalities r peripheral vision loss( posterior ischemic optic neuropathyleft eye), left side altered vision like looking through a screen door Weakness Wheelchair dependence Surgical History H/O cystoscopy 06/23/20 and 07/20/20 [facility] History of arthroplasty of left hip 2006 @ [facility]--infected after, multiple sx's History of biopsy of bladder benign History of colonoscopy with polypectomy History of incision and drainage 05/2019 of left hip History [place] [facility] [place] of left shoulder replacement History of right hip replacement 2005 @ [facility] History of tonsillectomy and adenoidectomy History of tooth extraction Hx of gastric bypass 2016 Hx of tubal ligation Hx of umbilical hernia repair mesh inserted S/P colon resection 1984 @ [facility] complete sigmoid removed d/t diverticular disease Family History Mother , age 91 Heart disease Family hx colonic polyps Father , age 42 Factor V deficiency Myocardial infarction Sister No problems noted. Sister Endometrial cancer Brother Family hx colonic polyps Brother , age 50 Meningitis Brother No problems noted. Brother No problems noted. Son No problems noted. Son No problems noted. Son Colon abnormality Son , in his 30 `s , " girl friend over dosed the patients son " Drug overdose Grandfather (Paternal) Family history of diabetes mellitus Family hx of colon cancer Other No family history of adverse response to anesthesia Social History Smoking Status: Former smoker Tobacco Type: Cigarettes Age Started Using Tobacco: 22; packs per day: 0.5; Years Smoked: 25; Second Hand Exposure: No; Hx Alcohol Use: No Hx Substance Use: No Preferred Language: [place] Citizen Communication Ability: Effective Visual Impairment: No Limitations Hearing Ability: Normal Theoretical Physicist Required: No Beliefs That Will Affect Care: None marital status: / Current Living Situation: Family Current Living Situation Comment: Lives w/ son current occupational status: retired 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 Feels Safe at Home: Yes Assistive Devices: Glasses Allergies Allergies Allergy/AdvReac Type Severity Reaction Status Date / Time adhesive Allergy Intermediate BLISTERS Verified 12/01/20 15:55 WITH STERI-STRIPS Iodinated Contrast Media Allergy Intermediate hive Verified 12/01/20 15:55 [Iodinated Contrast- Oral and IV Dye] naproxen Allergy Intermediate SWELLING - Verified 12/01/20 15:55 TOLERATES ESTEVES-[address] HALL ciprofloxacin Allergy Mild RASH Verified 12/01/20 15:55 Quinolones Allergy Mild NEUROLOGIC Verified 12/01/20 15:55 SYMPTOMS Home Meds Home Medications Medication Instructions Recorded Confirmed allopurinol 100 mg PO BID 06/23/19 12/08/20 buspirone 5 mg PO TID 06/23/19 12/08/20 cyanocobalamin (vitamin B-12) 1,000 mcg IM UD 06/23/19 12/08/20 duloxetine [Cymbalta] 40 mg PO HS 06/23/19 12/08/20 ondansetron 4 mg PO Q8H PRN 06/23/19 12/08/20 Flintstones Complete 1 tab PO QAM 08/27/19 12/08/20 atorvastatin 40 mg PO PM 12/31/19 12/08/20 bupropion HCl [Wellbutrin SR] 200 mg PO BID 12/31/19 12/08/20 calcium carbonate [Tums Extra 750 mg PO UD PRN 12/31/19 12/08/20 Strength Smoothies] nystatin 1 appln TOP BID PRN 12/31/19 12/08/20 omeprazole 20 mg PO QAM 12/31/19 12/08/20 oxybutynin chloride 5 mg PO BID 12/31/19 12/08/20 Probiotic 3,000 mmu cells PO QAM 06/21/20 12/08/20 potassium chloride [K-Tab] 10 meq PO BID 06/21/20 12/08/20 warfarin 2 mg PO DAILY 08/01/20 12/08/20 metoprolol succinate 12.5 mg PO BID 09/25/20 12/08/20 cholecalciferol (vitamin D3) 50 mcg PO DAILY 12/01/20 12/08/20 docusate sodium 100 mg PO BID 12/01/20 12/08/20 loperamide 2 mg PO Q4H PRN 12/01/20 12/08/20 furosemide 20 mg PO 2XWK 12/08/20 12/08/20 furosemide 20 mg PO DAILY 12/08/20 12/08/20 oxycodone 5 mg PO Q4 PRN 12/08/20 12/08/20 Results & Data (ED) Vital Signs Vital Signs - 24 hr 12/08/20 00:54 12/08/20 01:01 12/08/20 01:34 Temperature 36.9 C Temperature Source Oral Pulse Rate 80 Pulse Rate [Right Finger] 86 Respiratory Rate 18 16 Blood Pressure 119/68 Blood Pressure [Right Arm] 112/70 Blood Pressure Mean 85 Blood Pressure Mean [Right Arm] 84 Blood Pressure Position Lying Blood Pressure Position [Right Arm] Lying Pulse Oximetry 98 98 98 Oxygen Delivery Method Room Air Room Air Room Air Sepsis Recent Fever Within 48 Hours No Sepsis New/Unexplained Change in Mental Status No Sepsis Action Taken by Nursing No Action Required 12/08/20 03:23 Temperature Temperature Source Pulse Rate Pulse Rate [Right Finger] 87 Respiratory Rate 18 Blood Pressure Blood Pressure [Right Arm] 117/74 Blood Pressure Mean Blood Pressure Mean [Right Arm] 88 Blood Pressure Position Blood Pressure Position [Right Arm] Lying Pulse Oximetry 98 Oxygen Delivery Method Room Air Sepsis Recent Fever Within 48 Hours Sepsis New/Unexplained Change in Mental Status Sepsis Action Taken by Nursing Laboratory Data Result diagrams: 12/08/20 00:50 12/08/20 00:50 Lab Results 12/08/20 12/08/20 12/08/20 Range/Units 00:50 00:50 00:50 WBC 8.73 (4.8-10.8) K/uL RBC 3.68 L (4.2-5.4) M/uL Hgb 10.6 L (12.0-16.0) g/dL Hct 33.4 L (37-47) % MCV 90.8 (80-100) fL MCH 28.8 (25-34) pg MCHC 31.7 L (32-36) g/dL RDW Std Deviation 60.0 H (36.4-46.3) fL RDW Coeff of Karla 18.0 H (11.5-14.5) % Plt Count 242 (130-400) K/uL MPV 11.0 H (7.4-10.4) fL Immature Gran % (Auto) 0.1 % Neut % (Auto) 86.3 % Lymph % (Auto) 7.7 % Blaine % (Auto) 5.2 % Eos % (Auto) 0.5 % Baso % (Auto) 0.2 % Neut # (Auto) 7.54 H (1.4-6.5) K/uL Lymph # (Auto) 0.67 L (1.2-3.4) K/uL Blaine # (Auto) 0.45 (0.11-0.59) K/uL Eos # (Auto) 0.04 (0-0.5) K/uL Baso # (Auto) 0.02 (0-0.2) K/uL Immature Gran # (Auto) 0.01 (0.00-0.02) K/uL PT 19.5 H (9.0-12.0) Seconds INR 1.9 H (0.9-1.1) APTT 78.6 H* (21.0-31.0) Seconds PTT Ratio 2.8 Sodium 141 (136-145) mmol/L Potassium 3.3 L D (3.5-5.1) mmol/L Chloride 114 H (98-107) mmol/L Carbon Dioxide 24 (21-32) mmol/L Anion Gap 3.0 (3-11) BUN 27 H (7-18) mg/dl Creatinine 1.19 (0.6-1.2) mg/dl Est Cr Clr Drug Dosing 44.6 ml/min Est GFR ( Amer) 52.1 Est GFR (Non-Af Amer) 44.9 BUN/Creatinine Ratio 22.9 H (10-20) Glucose 102 H (70-99) mg/dl Calcium 7.5 L (8.5-10.1) mg/dl Magnesium 2.1 (1.8-2.4) mg/dl Total Bilirubin 0.2 (0.2-1) mg/dl AST 32 (15-37) U/L ALT 31 (12-78) U/L Alkaline Phosphatase 136 H (45-117) U/L Troponin I 0.021 (0-0.045) ng/ml Total Protein 4.5 L (6.4-8.2) gm/dl Albumin 1.5 L (3.4-5.0) gm/dl Globulin 3.0 (2.5-4.0) gm/dl Albumin/Globulin Ratio 0.5 L (0.9-2) COVID-19 Eval Order Blood Type Antibody Screen 12/08/20 12/08/20 Range/Units 01:14 03:39 WBC (4.8-10.8) K/uL RBC (4.2-5.4) M/uL Hgb (12.0-16.0) g/dL Hct (37-47) % MCV (80-100) fL MCH (25-34) pg MCHC (32-36) g/dL RDW Std Deviation (36.4-46.3) fL RDW Coeff of Karla (11.5-14.5) % Plt Count (130-400) K/uL MPV (7.4-10.4) fL Immature Gran % (Auto) % Neut % (Auto) % Lymph % (Auto) % Blaine % (Auto) % Eos % (Auto) % Baso % (Auto) % Neut # (Auto) (1.4-6.5) K/uL Lymph # (Auto) (1.2-3.4) K/uL Blaine # (Auto) (0.11-0.59) K/uL Eos # (Auto) (0-0.5) K/uL Baso # (Auto) (0-0.2) K/uL Immature Gran # (Auto) (0.00-0.02) K/uL PT (9.0-12.0) Seconds INR (0.9-1.1) APTT (21.0-31.0) Seconds PTT Ratio Sodium (136-145) mmol/L Potassium (3.5-5.1) mmol/L Chloride (98-107) mmol/L Carbon Dioxide (21-32) mmol/L Anion Gap (3-11) BUN (7-18) mg/dl Creatinine (0.6-1.2) mg/dl Est Cr Clr Drug Dosing ml/min Est GFR ( Amer) Est GFR (Non-Af Amer) BUN/Creatinine Ratio (10-20) Glucose (70-99) mg/dl Calcium (8.5-10.1) mg/dl Magnesium (1.8-2.4) mg/dl Total Bilirubin (0.2-1) mg/dl AST (15-37) U/L ALT (12-78) U/L Alkaline Phosphatase (45-117) U/L Troponin I (0-0.045) ng/ml Total Protein (6.4-8.2) gm/dl Albumin (3.4-5.0) gm/dl Globulin (2.5-4.0) gm/dl Albumin/Globulin Ratio (0.9-2) COVID-19 Eval Order Covid19 [facility] Blood Type A Positive Antibody Screen NEGATIVE Administered Medications Discontinued Medications Fentanyl Citrate (Fentanyl Citrate 100 Mcg/2 Ml Vial) 25 mcg IV NOW ONE Stop: 12/08/20 01:02 Last Admin: 12/08/20 01:19 Dose: 25 mcg Documented by: [id number] Sodium Chloride (Nss) 500 mls @ 999 mls/hr IV .Q31M ONE Stop: 12/08/20 02:13 Last Infusion: 12/08/20 03:24 Dose: 0 mls/hr Documented by: [id number] Admin: 12/08/20 02:10 Dose: 999 mls/hr Documented by: [id number] Discharge Plan Visit Data Chief Complaint: Rectal Bleed Stated Complaint: RECTAL BLEED ED Provider: Sangeeta Medrano Discharge Problem: Weakness, GI bleed Forms Stand Alone Forms: [facility] Prescriptions Prescriptions: No Action metoprolol succinate 25 mg Tablet Extended Release 24 Hr 12.5 mg PO BID RF: 0 Flintstones Complete Tablet,Chewable 1 tab PO QAM RF: 0 calcium carbonate [Tums Extra Strength Smoothies] 300 mg (750 mg) Tablet,Chewable 750 mg PO UD PRN (Reason: Heartburn) RF: 0 omeprazole 20 mg Tablet,Delayed Release (Dr/Ec) 20 mg PO QAM RF: 0 nystatin 100,000 unit/gram powder 1 appln TOP BID PRN (Reason: rash) RF: 0 atorvastatin 40 mg Tablet 40 mg PO PM RF: 0 oxybutynin chloride 5 mg Tablet 5 mg PO BID RF: 0 bupropion HCl [Wellbutrin SR] 200 mg Tablet Sustained-Release 12 Hr 200 mg PO BID RF: 0 furosemide 20 mg tablet 20 mg PO DAILY RF: 0 oxycodone 5 mg tablet 5 mg PO Q4 PRN (Reason: Pain) RF: 0 furosemide 20 mg tablet 20 mg PO 2XWK RF: 0 buspirone 5 mg Tablet 5 mg PO TID RF: 0 ondansetron 4 mg Tablet,Disintegrating 4 mg PO Q8H PRN (Reason: Nausea) RF: 0 allopurinol 100 mg Tablet 100 mg PO BID RF: 0 duloxetine [Cymbalta] 20 mg Capsule,Delayed Release(Dr/Ec) 40 mg PO HS RF: 0 cyanocobalamin (vitamin B-12) 1,000 mcg/mL Kit 1,000 mcg IM UD RF: 0 potassium chloride [K-Tab] 10 mEq tablet extended release 10 meq PO BID RF: 0 Probiotic 3 billion cell Capsule 3,000 mmu cells PO QAM RF: 0 warfarin 4 mg Tablet 2 mg PO DAILY RF: 0 loperamide 2 mg Capsule 2 mg PO Q4H PRN (Reason: Diarrhea) RF: 0 docusate sodium 100 mg Tablet 100 mg PO BID RF: 0 cholecalciferol (vitamin D3) 50 mcg (2,000 unit) Tablet 50 mcg PO DAILY RF: 0 Discharge Problem: GI bleed Qualifiers: GI bleed type/associated pathology: unspecified gastrointestinal hemorrhage ty pe Qualified Code(s): K92.2 - Gastrointestinal hemorrhage, unspecified
[2020-12-08 01:27] LABS: INR 1.9 (0.9-1.1); Partial Thromboplastin Ratio 2.8; Prothrombin Time 19.5 Seconds (9.0-12.0)
[2020-12-08 01:29] LABS: Albumin Level 1.5 gm/dl (3.4-5.0); BUN Creatinine Ratio 22.9 (10-20); Calcium 7.5 mg/dl (8.5-10.1); Creatinine Clr Calc Pharmacy 44.6 ml/min; Est GFR (African American) 52.1; Est GFR (Non-African American) 44.9; Potassium 3.3 mmol/L (3.5-5.1)
[2020-12-08 01:39] LABS: Albumin Globulin Ratio 0.5 (0.9-2); Bilirubin,Total 0.2 mg/dl (0.2-1); Total Protein 4.5 gm/dl (6.4-8.2); Troponin I 0.021 ng/ml (0-0.045)
[2020-12-08 01:42] LABS: Partial Thromboplastin Time 78.6 Seconds (21.0-31.0)
[2020-12-08] MEDS ORDERED: SODIUM CHLORIDE 0.9% 500 ML IV ONE (01:43)
[2020-12-08] MEDS ORDERED: POTASSIUM CHLORIDE CRTAB 20 MEQ TABCR PO STA (03:06)
[2020-12-08 03:35] LABS: Magnesium 2.1 mg/dl (1.8-2.4)
--- NOTE | 2020-12-08 03:36 | History & Physical Report ---
Date of Service December 08, 2020 Assessment & Plan (1) GI bleed: Recurrent LGIB over the last few months History diverticulosis on prior imaging Internal hemorrhoids on recent colonoscopy Rule out C. difficilem hx complicated UTI ongoing Ertapenem rx Patient currently hemodynamically stable. hypercoagulable state (factor V Leiden mutation plus recurrent PE DVT status post IVC filter placement) on Coumadin INR slightly subtherapeutic Hypokalemia secondary to emesis chronic diastolic heart failure (EF 55 to 59%, TTE 2019), patient on the dry side Severe aortic stenosis, TAVR contemplated in the future pending cardiac catheterization hypertension, stable hyperlipidemia, on statin Rx history CVA, PVD as per records COPD as per records, pulmonary status at baseline DM 2 diet-controlled, well-controlled as of recent hemoglobin A1c of 5.10 June 2020 uterine cancer status post radiation History of gastric bypass mood disorder at baseline Functional disability/deconditioning, recurrent admissions past tobacco abuse OBS Medical telemetry Stool C. difficile Trend H&H, resume Coumadin if hemoglobin stable GI consult if with progression of L GIB causing significant hemoglobin drop Replace potassium ISS BG goal 1 40-1 80 PT OT eval DVT prophylaxis. SCDs while Coumadin on hold while INR less than 2 RE L GIB Full code Patient requesting for her son to be updated of plan of care. Mr. Shon Osorio, contact #[phone]. Text document was generated using [employer] voice recognition software. It may contain grammatical or spelling errors. Kindly contact undersigned for clarification of any documentation item in question. History of Present Illness Chief Complaint: Weakness, nausea, vomiting, bloody stools Primary Care Provider: Sadi Shea DO History obtained from patient and records. Medical history significant for chronic diastolic heart failure (EF 55 to 59%, TTE 2019), severe aortic stenosis, hypertension, hyperlipidemia, history CVA, hypercoagulable state (factor V Leiden mutation plus recurrent PE DVT status post IVC filter placement) on Coumadin, COPD as per records, PVD, DM 2 diet-controlled, uterine cancer status post radiation, chronic anemia (baseline hemoglobin 9), History of gastric bypass, mood disorder, past tobacco abuse. Last confinement December 01-2020 for recurrent UTI secondary to obstructive uropathy status post left ureter placement. Urine CS grew MDR Morganella. Patient discharged yesterday on Ertapenem course. Patient had achy abdominal pain nausea emesis symptoms upon arrival at home. Dark bloody stools which happens from time to time at home. No chest pain, no S OB, no cough symptoms. Generalized weakness. No fever, no chills. Patient brought to the ER for urging of son. Patient son not comfortable taking patient home. Medical History as above 2020 colonoscopy showed inadequate colon preparation. Congested/erythematous mucosa rectosigmoid colon. Internal hemorrhoids. 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 Allergies Allergy/AdvReac Type Severity Reaction Status Date / Time adhesive Allergy Intermediate BLISTERS Verified 12/01/20 15:55 WITH STERI-STRIPS Iodinated Contrast Media Allergy Intermediate hive Verified 12/01/20 15:55 [Iodinated Contrast- Oral and IV Dye] naproxen Allergy Intermediate SWELLING - Verified 12/01/20 15:55 TOLERATES ESTEVES-[address] HALL ciprofloxacin Allergy Mild RASH Verified 12/01/20 15:55 Quinolones Allergy Mild NEUROLOGIC Verified 12/01/20 15:55 SYMPTOMS Home Medications Medication Instructions Recorded Confirmed Type allopurinol 100 mg PO BID 06/23/19 12/08/20 History buspirone 5 mg PO TID 06/23/19 12/08/20 History cyanocobalamin (vitamin B-12) 1,000 mcg IM UD 06/23/19 12/08/20 History duloxetine [Cymbalta] 40 mg PO HS 06/23/19 12/08/20 History ondansetron 4 mg PO Q8H PRN 06/23/19 12/08/20 History Flintstones Complete 1 tab PO QAM 08/27/19 12/08/20 History atorvastatin 40 mg PO PM 12/31/19 12/08/20 History bupropion HCl [Wellbutrin SR] 200 mg PO BID 12/31/19 12/08/20 History calcium carbonate [Tums Extra 750 mg PO UD PRN 12/31/19 12/08/20 History Strength Smoothies] nystatin 1 appln TOP BID PRN 12/31/19 12/08/20 History omeprazole 20 mg PO QAM 12/31/19 12/08/20 History oxybutynin chloride 5 mg PO BID 12/31/19 12/08/20 History Probiotic 3,000 mmu cells PO QAM 06/21/20 12/08/20 History potassium chloride [K-Tab] 10 meq PO BID 06/21/20 12/08/20 History warfarin 2 mg PO DAILY 08/01/20 12/08/20 History metoprolol succinate 12.5 mg PO BID 09/25/20 12/08/20 History cholecalciferol (vitamin D3) 50 mcg PO DAILY 12/01/20 12/08/20 History docusate sodium 100 mg PO BID 12/01/20 12/08/20 History loperamide 2 mg PO Q4H PRN 12/01/20 12/08/20 History furosemide 20 mg PO 2XWK 12/08/20 12/08/20 History furosemide 20 mg PO DAILY 12/08/20 12/08/20 History oxycodone 5 mg PO Q4 PRN 12/08/20 12/08/20 History Past Med/Surg History Medical History Aortic stenosis, severe PAULY 0.62-0.66 cm2 per 08/31/2020 echo. Patient seen by [facility] valve clinic 08/14/20 for possible TAVR, workup initiated with repeat echo, but patient subsequently admitted to [facility] again for urologic issues. 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 Per cardiology consult , "Only mild left ventricular dysfunction and suspect stress mediated etiology rather than acute ischemic event. Patient on appropriate beta-sheryl therapy." Apical wall motion abnormality resolved on 08/04/20 ECHO Atrial fibrillation follows with Michael Bui> NO PACER Bleeding hemorrhoids Carotid artery stenosis [place] , 50%, LICA 50-69% by 04/09/19 doppler Chronic diastolic heart failure CKD (chronic kidney disease), stage III Degenerative disc disease Depression Dyslipidemia Factor 5 Leiden mutation, heterozygous recurrent PE/DVT; status post IVC filter placement, on Coumadin Frequent UTI RECENT HOSPITALIZATION GERD (gastroesophageal reflux disease) [place] filter in place History of COPD "MILD" History of esophageal disorder esophageal diverticulum History of peripheral neuropathy bilateral feet History of stress incontinence Hx of cancer of uterus diagnosed 03/2019---radiation only Hx of gout Hx of iron deficiency anemia Hypertension Intestinal disorder post op malabsorption Non-ST elevation OH (NSTEMI) In setting of acute illness (urosepsis 2/2 obstructing stone) 06/21/20 On anticoagulant therapy warfarin daily NICOLASA on CPAP Pes planus Post traumatic stress disorder Pulmonary embolism hx of bilateral ~2002 2/2 FFL Sleep apnea CPAP Spinal stenosis Stroke 06/03/2019 after I&D left hip--vision loss in left eye--no neurologist Vision abnormalities r peripheral vision loss( posterior ischemic optic neuropathyleft eye), left side altered vision like looking through a screen door Weakness Wheelchair dependence Surgical History H/O cystoscopy 06/23/20 and 07/20/20 [facility] History of arthroplasty of left hip 2006 @ [facility]--infected after, multiple sx's History of biopsy of bladder benign History of colonoscopy with polypectomy History of incision and drainage 05/2019 of left hip History of left hip replacement 03/2019 @ [facility] [place] History of left shoulder replacement History of right hip replacement 2005 @ [facility] History of tonsillectomy and adenoidectomy History of tooth extraction Hx of gastric bypass 2016 Hx of tubal ligation Hx of umbilical hernia repair mesh inserted S/P colon resection 1984 @ [facility] complete sigmoid removed d/t diverticular disease Family History Mother , age 91 Heart disease Family hx colonic polyps Father , age 42 Factor V deficiency Myocardial infarction Sister No problems noted. Sister Endometrial cancer Brother Family hx colonic polyps Brother , age 50 Meningitis Brother No problems noted. Brother No problems noted. Son No problems noted. Son No problems noted. Son Colon abnormality Son , in his 30 `s , " girl friend over dosed the patients son " Drug overdose Grandfather (Paternal) Family history of diabetes mellitus Family hx of colon cancer Other No family history of adverse response to anesthesia Social History Smoking Status: Former smoker Tobacco Type: Cigarettes Age Started Using Tobacco: 22; packs per day: 0.5; Years Smoked: 25; Second Hand Exposure: No; Do You Dip or Chew Tobacco: No; Hx Alcohol Use: No Hx Substance Use: No Preferred Language: Sri Lankan Communication Ability: Effective Visual Impairment: No Limitations Hearing Ability: Normal Runner Worker Required: No Beliefs That Will Affect Care: None marital status: / Current Living Situation: Family Current Living Situation Comment: son current occupational status: retired 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 Feels Safe at Home: Yes Assistive Devices: CPAP and Glasses Review of Systems Review of Systems: As per HPI, all 10 systems reviewed, all other ROS negative Physical Exam Physical Exam: GENERAL: uncomfortable, no respiratory distress SKIN: Pallor , warm HEENT: Bespectacled, pale palpebral conjunctivae, no ptosis, dry buccal mucosa NECK : Supple, no tenderness CHEST : CTA, no tenderness HEART : RRR, systolic murmur ABDOMEN: Some distention, minimal hypogastric tenderness EXTREMITIES : Minimal LE swelling, no LE tenderness, no other conspicuous deformities noted NEUROLOGIC : Coherent, no facial asymmetry, no other gross focality Results & Data Results & Data ([facility]) Vital Signs (Past 12 Hours) Vital Signs Temp Pulse Pulse Resp BP BP Pulse Ox 12/08/20 03:23 87 18 117/74 98 12/08/20 01:34 86 16 112/70 98 12/08/20 01:01 98 12/08/20 00:54 36.9 C 80 18 119/68 98 Laboratory Results Laboratory Results WBC 8.73 K/uL (4.8-10.8) 12/08/20 00:50 RBC 3.68 M/uL (4.2-5.4) L 12/08/20 00:50 Hgb 10.6 g/dL (12.0-16.0) L 12/08/20 00:50 Hct 33.4 % (37-47) L 12/08/20 00:50 MCV 90.8 fL (80-100) 12/08/20 00:50 MCH 28.8 pg (25-34) 12/08/20 00:50 MCHC 31.7 g/dL (32-36) L 12/08/20 00:50 RDW Std Deviation 60.0 fL (36.4-46.3) H 12/08/20 00:50 RDW Coeff of Karla 18.0 % (11.5-14.5) H 12/08/20 00:50 Plt Count 242 K/uL (130-400) 12/08/20 00:50 MPV 11.0 fL (7.4-10.4) H 12/08/20 00:50 Immature Gran % (Auto) 0.1 % 12/08/20 00:50 Neut % (Auto) 86.3 % 12/08/20 00:50 Lymph % (Auto) 7.7 % 12/08/20 00:50 Carver % (Auto) 5.2 % 12/08/20 00:50 Eos % (Auto) 0.5 % 12/08/20 00:50 Baso % (Auto) 0.2 % 12/08/20 00:50 Neut # (Auto) 7.54 K/uL (1.4-6.5) H 12/08/20 00:50 Lymph # (Auto) 0.67 K/uL (1.2-3.4) L 12/08/20 00:50 Carver # (Auto) 0.45 K/uL (0.11-0.59) 12/08/20 00:50 Eos # (Auto) 0.04 K/uL (0-0.5) 12/08/20 00:50 Baso # (Auto) 0.02 K/uL (0-0.2) 12/08/20 00:50 Immature Gran # (Auto) 0.01 K/uL (0.00-0.02) 12/08/20 00:50 PT 19.5 Seconds (9.0-12.0) H 12/08/20 00:50 INR 1.9 (0.9-1.1) H 12/08/20 00:50 APTT 78.6 Seconds (21.0-31.0) H* 12/08/20 00:50 PTT Ratio 2.8 12/08/20 00:50 Sodium 141 mmol/L (136-145) 12/08/20 00:50 Potassium 3.3 mmol/L (3.5-5.1) L D 12/08/20 00:50 Chloride 114 mmol/L (98-107) H 12/08/20 00:50 Carbon Dioxide 24 mmol/L (21-32) 12/08/20 00:50 Anion Gap 3.0 (3-11) 12/08/20 00:50 BUN 27 mg/dl (7-18) H 12/08/20 00:50 Creatinine 1.19 mg/dl (0.6-1.2) 12/08/20 00:50 Est Cr Clr Drug Dosing 44.6 ml/min 12/08/20 00:50 Est GFR ( Amer) 52.1 12/08/20 00:50 Est GFR (Non-Af Amer) 44.9 12/08/20 00:50 BUN/Creatinine Ratio 22.9 (10-20) H 12/08/20 00:50 Glucose 102 mg/dl (70-99) H 12/08/20 00:50 Calcium 7.5 mg/dl (8.5-10.1) L 12/08/20 00:50 Magnesium 2.1 mg/dl (1.8-2.4) 12/08/20 00:50 Total Bilirubin 0.2 mg/dl (0.2-1) 12/08/20 00:50 AST 32 U/L (15-37) 12/08/20 00:50 ALT 31 U/L (12-78) 12/08/20 00:50 Alkaline Phosphatase 136 U/L (45-117) H 12/08/20 00:50 Troponin I 0.021 ng/ml (0-0.045) 12/08/20 00:50 Total Protein 4.5 gm/dl (6.4-8.2) L 12/08/20 00:50 Albumin 1.5 gm/dl (3.4-5.0) L 12/08/20 00:50 Globulin 3.0 gm/dl (2.5-4.0) 12/08/20 00:50 Albumin/Globulin Ratio 0.5 (0.9-2) L 12/08/20 00:50 Blood Type A Positive 12/08/20 01:14 Antibody Screen NEGATIVE 12/08/20 01:[address] abdomen pelvis initial read: No acute findings. Postsurgical abdomen with multiple anastomotic sutures within bowel within the pelvis and left hemiabdomen. No focal bowel thickening or free fluid. Mild left hydronephrosis with double-J ureteric stent in place. Proximal end of stent is curled within the renal pelvis. Ramírez catheter visualized. Air in urinary bladder. Stable left renal cyst. Moderate hiatal hernia. Trace pericardial effusion. Trace left pleural effusion. Stable osseous structures with chronic destruction dislocation of left proximal femur.
[2020-12-08] MEDS ORDERED: POTASSIUM CHLORIDE 10 MEQ TABCR PO ONE (05:53)
[2020-12-08] MEDS ORDERED: GLUCAGON FOR INJ 1 MG VIAL SQ PRN (06:37)
[2020-12-08] MEDS ORDERED: CARBOHYDRATES FOR HYPOGLYCEMIA PO PRN (06:37)
[2020-12-08] MEDS ORDERED: GLUCOSE 10 TABS/TUBE PO PRN (06:37)
[2020-12-08] MEDS ORDERED: GLUCOSE 40% GEL 15 GM TUBE PO PRN (06:37)
[2020-12-08] MEDS ORDERED: PROMETHAZINE HCL 12.5 MG in SODIUM CHLORIDE 0.9% 50 ML IV PRN (06:37)
[2020-12-08] MEDS ORDERED: DEXTROSE 50% 50 ML SYRINGE IV PRN (06:37)
[2020-12-08] MEDS ORDERED: ERTAPENEM CONSULT ACTIVE PRN (06:58)
[2020-12-08] MEDS ORDERED: POTASSIUM CHLORIDE 40 MEQ in SODIUM CHLORIDE 0.45 % 1,000 ML IV ONE (07:00)
[2020-12-08] MEDS ORDERED: ERTAPENEM SODIUM 1,000 MG in SODIUM CHLORIDE 0.9% 50 ML IV SCH (08:00)
[2020-12-08] MEDS: busPIRone 5 MG TAB PO SCH ×3 (08:21→20:53)
[2020-12-08] MEDS: METOPROLOL SUCC 25MG EXT REL TAB PO SCH ×2 (08:21→20:56)
[2020-12-08] MEDS: ADVANCED PROBIOTIC 1250 MG CAPSULE PO SCH (08:21)
[2020-12-08] MEDS: PANTOprazole 40 MG TAB PO SCH (08:21)
[2020-12-08] MEDS: POTASSIUM CHLORIDE 10 MEQ TABCR PO SCH ×2 (08:21→21:34)
[2020-12-08] MEDS: OXYBUTYNIN CHLORIDE 5 MG TAB PO SCH ×2 (08:21→20:54)
[2020-12-08] MEDS: MULTIVITAMIN CHEWABLE TAB PO SCH (08:21)
[2020-12-08] MEDS: buPROPion SR 100 MG TABCR PO SCH ×2 (08:22→20:57)
[2020-12-08] MEDS: allopurinoL 100 MG TAB PO SCH ×2 (08:22→20:57)
[2020-12-08] MEDS ORDERED: POTASSIUM CHLORIDE CRTAB 20 MEQ TABCR PO ONE (08:30)
[2020-12-08] MEDS: INSULIN ASPART 100 UNITS/ML 3 ML PEN SC SCH ×4 (08:38→21:03)
[2020-12-08] MEDS: ERTAPENEM SODIUM 1,000 MG in SODIUM CHLORIDE 0.9% 50 ML IV SCH (08:46)
--- NOTE | 2020-12-08 08:51 | CT Scan Report ---
ABDOMEN AND PELVIS CT WITHOUT CONTRAST CT DOSE: 747.71 mGy.cm HISTORY: Generalized abdominal pain. Rectal bleeding. TECHNIQUE: Multiaxial CT images of the abdomen and pelvis were performed without contrast. A dose lo wering technique was utilized adhering to the principles of ALARA. COMPARISON STUDY: Abdomen and pelvis CT 12/01/2020. FINDINGS: Trace left pleural effusion, unchanged. This also a trace pericardial effusion. Aortic and mitral valve calcifications are again noted. There is a debris-filled moderate size hiatus hernia. Po stoperative changes suggesting prior gastric bypass. No pneumoperitoneum. No pneumatosis. Chronic def ormity and dislocation of the left hip, unchanged. There is a right total hip arthroplasty. Soft tiss ue thickening at the expected location of the left femoral head is also unchanged. Old, healed left-s ided rib fractures. Scoliosis and degenerative changes again noted within the lumbar spine. Suspect a few tiny gallstones. The unenhanced liver, spleen, and pancreas are unremarkable. Bilateral adrenal gland thickening which is likely age-related. Normal right kidney without hydronephrosis. There is a dedicated left renal collecting system. Interval placement of a ureteral stent within the lower pole moiety. There is been interval decompression of the dilated lower pole moiety. Mild hydronephrosis wi thin the left upper pole moiety has also improved. The left ureteral stent appears in good position. A Ramírez catheter present within the bladder. There is moderate bladder wall thickening with adjacent fat stranding. Small amount of gas within the bladder is likely due to the prior instrumentation. The re are few punctate nonobstructing stones within the left kidney. This remains unchanged. There is a single mid left ureteral stone measuring 3 mm best seen on image 245. This is adjacent to the ureter al stent. The left ureteral stones have decreased in size and number. Of note, the duplicated left ur eters appear to join just proximal to the location of the mid left ureteral stone. Punctate left blad letitia calculi are again noted. Mild left perinephric edema. Small left renal hyper and hypodense lesion s remain unchanged. These are incompletely characters on this noncontrast study but statistically rep resent cysts. Evidence for prior ventral hernia repair. Moderate body wall edema. Suboptimal evaluati on for bowel pathology due to the lack of intravenous and oral contrast. There appears to be mild rec cathi wall thickening with adjacent fat stranding. Prior rectosigmoid anastomosis. No evidence for matthias l obstruction. Possible thickening of the descending colon and sigmoid colon with mild adjacent fat s tranding. A few scattered colonic diverticula. No evidence for acute diverticulitis. IMPRESSION: 1. Interval placement of a left ureteral stent which is located within the lower pole moiety of the d uplicated left renal collecting system. The lower pole moiety hydronephrosis has resolved. There is a lso improvement in the mild hydronephrosis involving the left upper pole moiety. There is a residual 3 mm stone at the mid left ureter adjacent to the ureteral stent. The left ureteral stones have decre ased in size and number compared the prior study. 2. Left-sided nephrolithiasis and a punctate left bladder calculi remain unchanged. 3. Gas within the bladder lumen is likely due to the Ramírez catheter. 4. Moderate bladder wall thickening with adjacent fat stranding. This could be due to the recent inst rumentation or a cystitis. Recommend correlation with urinalysis. 5. Mild bowel wall thickening involving the descending colon, sigmoid colon, and rectum with adjacent fat stranding. Findings are consistent with a nonspecific proctocolitis and favor infectious or infl ammatory process. 6. Cholelithiasis. 7. Trace left pleural effusion. 8. Additional findings as described above. ACT 112: Negative or not required by law. Electronically signed by: Lane Bridges M.D. 12/08/2020 8:50 AM
[2020-12-08 08:57] LABS: Hematocrit (blood only) 31.3 % (37-47); Hemoglobin 9.9 g/dL (12.0-16.0)
--- NOTE | 2020-12-08 11:28 | Gastrointestinal Consultation ---
Date of Consultation December 08, 2020 Assessment & Plan (1) Hematochezia: This is a 75 y/o female with h/o severe , a-fib on Coumadin and others admitted with weakness following ureteral stent placement 12/02, and GI consulted for GI bleed. Pt has chronic intermittent low-volume hematochezia for which 2 colonoscopies have been done with poor prep. Presently having no acute or significant GIB, and HGB stable at 9.9. CT with mild thickening in the descending colon/sigmoid/rectum, though study was without oral contrast. Abd soft, VSS. Considerations for etiology of her rectal bleeding include hemorrhoids, diverticulosis, AVMs, malignancy. - As she is known to have very poor bowel preparation, would recommend outpt prep with liquid diet x 5 days prior, then 2 day prep with GoLytely to maximize the potential for a good examination; pt is agreeable and our office will arrange this - Continue ABX per primary service - Will defer care regarding her ureteral stent hx to primary service - Would continue to monitor H&H during her hospitalization, and monitor BMs for any changes GI will sign off, please call with questions. Supervising Physician Co-Signing Physician Notes I saw and evaluated the patient. We are consulted with regard to scant hematochezia. The patient has had number of colonoscopy attempts by my partner have been limited by poor preparation. The patient was readmitted after recent ureteral stent placement routine GI consultation was placed to ask about repeat colonoscopy. Physical examination elderly appearing female in no obvious distress Impression: Patient with a history of recurrent hematochezia would recommend outpatient colonoscopy with in 4 to 6 weeks after she is recovered from her recent hospital admission. She will need a prolonged bowel preparation as she has not had adequate bowel preparation in the past. Call with any questions or concerns during the remainder of the hospital admission History of Present Illness Reason for Consultation: Abdominal pain, GI bleed Requesting Physician: Dr. Lema Attending Physician: Edgardo Lema MD History of Present Illness This is a 75 yr old female w severe , Afib, CHF with preserved EF, PE, Factor 4 Leiden mutation, Sleep apnea, DM, CKD3, depression, GERD, and others, now admitted with weakness; The patient was just discharged from the hospital 2 days ago after being admitted for recurrent urinary tract infection with obstructive uropathy and ureteral stent placement. Patient was discharged home on IV antibiotics. Pt states reason she returned to the hospital is her son wasn't prepared to care for her at home. She has a history of diverticulosis and hemorrhoids, and notes chronic intermittent low-volume hematochezia, described as bright red and is on "the end" of the soft formed BM, for the last year or so, and this continues. GI consulted previously for this same problem during admission in September. She's undergone 2 colonoscopies (01/2020 and 09/2020) - both with inadequate preps, even with 2-day prep. Bx from Sep colonoscopy were unremarkable. She denies straining with BMs; denies diarrhea, states she gets intermittent abd discomfort preceding and relieved by BMs. She has chronic normocytic anemia, typically baseline HGB 9-10. Presently HGB 9.9, crit 31%, plt 242, BUN 27 (chronically elevated), WBC 8, K 3.3, INR 1.9. C. diff ordered but not collected as pt hasn't had diarrhea. CTAP done without contrast noting mild bowel wall thickening involving the descending colon, sigmoid colon, and rectum with adjacent fat stranding. Findings are consistent with a nonspecific proctocolitis and favor infectious or inflammatory process. Pt on IV ABX given history of recent uropathy. Denies abd pain, nausea, vomiting, hematemesis, melena, change in appetite, CP, SOB, syncope, dizziness, leg edema Colonoscopy 10/04/20: Prep was inadequate; congested and erythematous mucosa in the recto-sigmoid junction was bx; neg; internal hemorrhoids Colonoscopy 01/12/20: Internal hemorrhoids, diverticulosis, no polyps, but poor prep, so recommended repeat in 1 yr. Allergies Allergy/AdvReac Type Severity Reaction Status Date / Time adhesive Allergy Intermediate BLISTERS Verified 12/01/20 15:55 WITH STERI-STRIPS Iodinated Contrast Media Allergy Intermediate hive Verified 12/01/20 15:55 [Iodinated Contrast- Oral and IV Dye] naproxen Allergy Intermediate SWELLING - Verified 12/01/20 15:55 TOLERATES ESTEVES-[address] HALL ciprofloxacin Allergy Mild RASH Verified 12/01/20 15:55 Quinolones Allergy Mild NEUROLOGIC Verified 12/01/20 15:55 SYMPTOMS Home Medications Medication Instructions Recorded Confirmed Type allopurinol 100 mg PO BID 06/23/19 12/08/20 History buspirone 5 mg PO TID 06/23/19 12/08/20 History cyanocobalamin (vitamin B-12) 1,000 mcg IM UD 06/23/19 12/08/20 History duloxetine [Cymbalta] 40 mg PO HS 06/23/19 12/08/20 History ondansetron 4 mg PO Q8H PRN 06/23/19 12/08/20 History Flintstones Complete 1 tab PO QAM 08/27/19 12/08/20 History atorvastatin 40 mg PO PM 12/31/19 12/08/20 History bupropion HCl [Wellbutrin SR] 200 mg PO BID 12/31/19 12/08/20 History calcium carbonate [Tums Extra 750 mg PO UD PRN 12/31/19 12/08/20 History Strength Smoothies] nystatin 1 appln TOP BID PRN 12/31/19 12/08/20 History omeprazole 20 mg PO QAM 12/31/19 12/08/20 History oxybutynin chloride 5 mg PO BID 12/31/19 12/08/20 History Probiotic 3,000 mmu cells PO QAM 06/21/20 12/08/20 History potassium chloride [K-Tab] 10 meq PO BID 06/21/20 12/08/20 History warfarin 2 mg PO DAILY 08/01/20 12/08/20 History metoprolol succinate 12.5 mg PO BID 09/25/20 12/08/20 History cholecalciferol (vitamin D3) 50 mcg PO DAILY 12/01/20 12/08/20 History docusate sodium 100 mg PO BID 12/01/20 12/08/20 History loperamide 2 mg PO Q4H PRN 12/01/20 12/08/20 History furosemide 20 mg PO 2XWK 12/08/20 12/08/20 History furosemide 20 mg PO DAILY 12/08/20 12/08/20 History oxycodone 5 mg PO Q4 PRN 12/08/20 12/08/20 History Patient History Medical History Aortic stenosis, severe PAULY 0.62-0.66 cm2 per 08/31/2020 echo. Patient seen by [facility] valve clinic 08/14/20 for possible TAVR, workup initiated with repeat echo, but patient subsequently admitted to [facility] again for urologic issues. 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 Per cardiology consult , "Only mild left ventricular dysfunction and suspect stress mediated etiology rather than acute ischemic event. Patient on appropriate beta-sheryl therapy." Apical wall motion abnormality resolved on 08/04/20 ECHO Atrial fibrillation follows with Michael Bui> NO PACER Bleeding hemorrhoids Carotid artery stenosis [place] , 50%, LICA 50-69% by 04/09/19 doppler Chronic diastolic heart failure CKD (chronic kidney disease), stage III Degenerative disc disease Depression Dyslipidemia Factor 5 Leiden mutation, heterozygous recurrent PE/DVT; status post IVC filter placement, on Coumadin Frequent UTI RECENT HOSPITALIZATION GERD (gastroesophageal reflux disease) [place] filter in place History of COPD "MILD" History of esophageal disorder esophageal diverticulum History of peripheral neuropathy bilateral feet History of stress incontinence Hx of cancer of uterus diagnosed 03/2019---radiation only Hx of gout Hx of iron deficiency anemia Hypertension Intestinal disorder post op malabsorption Non-ST elevation IN (NSTEMI) In setting of acute illness (urosepsis 2/2 obstructing stone) 06/21/20 On anticoagulant therapy warfarin daily NICOLASA on CPAP Pes planus Post traumatic stress disorder Pulmonary embolism hx of bilateral ~2002 2/2 FFL Sleep apnea CPAP Spinal stenosis Stroke 06/03/2019 after I&D left hip--vision loss in left eye--no neurologist Vision abnormalities r peripheral vision loss( posterior ischemic optic neuropathyleft eye), left side altered vision like looking through a screen door Weakness Wheelchair dependence Surgical History H/O cystoscopy 06/23/20 and 07/20/20 [facility] History of arthroplasty of left hip 2006 @ [facility]--infected after, multiple sx's History of biopsy of bladder benign History of colonoscopy with polypectomy History of incision and drainage 05/2019 of left hip [place] of [place] [facility] [place] of left shoulder replacement History of right hip replacement 2005 @ [facility] History of tonsillectomy and adenoidectomy History of tooth extraction Hx of gastric bypass 2016 Hx of tubal ligation Hx of umbilical hernia repair mesh inserted S/P colon resection 1984 @ [facility] complete sigmoid removed d/t diverticular disease Family History Mother , age 91 Heart disease Family hx colonic polyps Father , age 42 Factor V deficiency Myocardial infarction Sister No problems noted. Sister Endometrial cancer Brother Family hx colonic polyps Brother , age 50 Meningitis Brother No problems noted. Brother No problems noted. Son No problems noted. Son No problems noted. Son Colon abnormality Son , in his 30 `s , " girl friend over dosed the patients son " Drug overdose Grandfather (Paternal) Family history of diabetes mellitus Family hx of colon cancer Other No family history of adverse response to anesthesia Social History Smoking Status: Former smoker Tobacco Type: Cigarettes Age Started Using Tobacco: 22; packs per day: 0.5; Years Smoked: 25; Second Hand Exposure: No; Do You Dip or Chew Tobacco: No; Hx Alcohol Use: No Hx Substance Use: No Preferred Language: Icelandic Communication Ability: Effective Visual Impairment: No Limitations Hearing Ability: Normal Barrel Plater Required: No Beliefs That Will Affect Care: None marital status: / Current Living Situation: Family Current Living Situation Comment: son current occupational status: retired 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 Feels Safe at Home: Yes Assistive Devices: CPAP and Glasses Physical Exam Constitutional: no acute distress chronically ill Eyes: + anicteric sclerae Respiratory: normal respiratory effort, lungs clear to auscultation Cardiovascular: Rate/Rhythm: + irregularly irregular + systolic murmur Gastrointestinal (Abdomen): Inspection/Auscultation: abdomen normal to inspection and normal bowel sounds; abdomen not distended Percussion/Palpation: abdomen soft; abdomen nontender no gross GIB Skin: no rashes, warm and dry Psychiatric: A+Ox3, euthymic affect Results & Data ([facility]) Vital Signs (Past 12 Hours) Vital Signs Temp Pulse Pulse Resp BP BP Pulse Ox 12/08/20 06:25 36.6 C 84 20 112/76 94 12/08/20 06:13 78 16 112/62 98 12/08/20 04:55 86 18 112/62 98 12/08/20 03:23 87 18 117/74 98 12/08/20 01:34 86 16 112/70 98 12/08/20 01:01 98 12/08/20 00:54 36.9 C 80 18 119/68 98 Laboratory Results 12/08/20 12/08/20 12/08/20 Range/Units 08:39 07:34 03:39 WBC (4.8-10.8) K/uL RBC (4.2-5.4) M/uL Hgb 9.9 L (12.0-16.0) g/dL Hct 31.3 L (37-47) % MCV (80-100) fL MCH (25-34) pg MCHC (32-36) g/dL RDW Std Deviation (36.4-46.3) fL RDW Coeff of Karla (11.5-14.5) % Plt Count (130-400) K/uL MPV (7.4-10.4) fL Immature Gran % (Auto) % Neut % (Auto) % Lymph % (Auto) % [place] % (Auto) % Eos % (Auto) % Baso % (Auto) % Neut # (Auto) (1.4-6.5) K/uL Lymph # (Auto) (1.2-3.4) K/uL [place] # (Auto) (0.11-0.59) K/uL Eos # (Auto) (0-0.5) K/uL Baso # (Auto) (0-0.2) K/uL Immature Gran # (Auto) (0.00-0.02) K/uL PT (9.0-12.0) Seconds INR (0.9-1.1) APTT (21.0-31.0) Seconds PTT Ratio Sodium (136-145) mmol/L Potassium (3.5-5.1) mmol/L Chloride (98-107) mmol/L Carbon Dioxide (21-32) mmol/L Anion Gap (3-11) BUN (7-18) mg/dl Creatinine (0.6-1.2) mg/dl Est Cr Clr Drug Dosing ml/min Est GFR ( Amer) Est GFR (Non-Af Amer) BUN/Creatinine Ratio (10-20) Glucose (70-99) mg/dl POC Glucose 105 H (70-99) mg/dl Calcium (8.5-10.1) mg/dl Magnesium (1.8-2.4) mg/dl Total Bilirubin (0.2-1) mg/dl AST (15-37) U/L ALT (12-78) U/L Alkaline Phosphatase (45-117) U/L Troponin I (0-0.045) ng/ml Total Protein (6.4-8.2) gm/dl Albumin (3.4-5.0) gm/dl Globulin (2.5-4.0) gm/dl Albumin/Globulin Ratio (0.9-2) COVID-19 Eval Order SARS-CoV-2, RNA, NAAT NEGATIVE (NEGATIVE) Blood Type Antibody Screen 12/08/20 12/08/20 12/08/20 Range/Units 03:39 01:14 00:50 WBC (4.8-10.8) K/uL RBC (4.2-5.4) M/uL Hgb (12.0-16.0) g/dL Hct (37-47) % MCV (80-100) fL MCH (25-34) pg MCHC (32-36) g/dL RDW Std Deviation (36.4-46.3) fL RDW Coeff of Karla (11.5-14.5) % Plt Count (130-400) K/uL MPV (7.4-10.4) fL Immature Gran % (Auto) % Neut % (Auto) % Lymph % (Auto) % [place] % (Auto) % Eos % (Auto) % Baso % (Auto) % Neut # (Auto) (1.4-6.5) K/uL Lymph # (Auto) (1.2-3.4) K/uL [place] # (Auto) (0.11-0.59) K/uL Eos # (Auto) (0-0.5) K/uL Baso # (Auto) (0-0.2) K/uL Immature Gran # (Auto) (0.00-0.02) K/uL PT (9.0-12.0) Seconds INR (0.9-1.1) APTT (21.0-31.0) Seconds PTT Ratio Sodium 141 (136-145) mmol/L Potassium 3.3 L D (3.5-5.1) mmol/L Chloride 114 H (98-107) mmol/L Carbon Dioxide 24 (21-32) mmol/L Anion Gap 3.0 (3-11) BUN 27 H (7-18) mg/dl Creatinine 1.19 (0.6-1.2) mg/dl Est Cr Clr Drug Dosing 44.6 ml/min Est GFR ( Amer) 52.1 Est GFR (Non-Af Amer) 44.9 BUN/Creatinine Ratio 22.9 H (10-20) Glucose 102 H (70-99) mg/dl POC Glucose (70-99) mg/dl Calcium 7.5 L (8.5-10.1) mg/dl Magnesium 2.1 (1.8-2.4) mg/dl Total Bilirubin 0.2 (0.2-1) mg/dl AST 32 (15-37) U/L ALT 31 (12-78) U/L Alkaline Phosphatase 136 H (45-117) U/L Troponin I 0.021 (0-0.045) ng/ml Total Protein 4.5 L (6.4-8.2) gm/dl Albumin 1.5 L (3.4-5.0) gm/dl Globulin 3.0 (2.5-4.0) gm/dl Albumin/Globulin Ratio 0.5 L (0.9-2) COVID-19 Eval Order Covid19 [facility] SARS-CoV-2, RNA, NAAT (NEGATIVE) Blood Type A Positive Antibody Screen NEGATIVE 12/08/20 12/08/20 Range/Units 00:50 00:50 WBC 8.73 (4.8-10.8) K/uL RBC 3.68 L (4.2-5.4) M/uL Hgb 10.6 L (12.0-16.0) g/dL Hct 33.4 L (37-47) % MCV 90.8 (80-100) fL MCH 28.8 (25-34) pg MCHC 31.7 L (32-36) g/dL RDW Std Deviation 60.0 H (36.4-46.3) fL RDW Coeff of Karla 18.0 H (11.5-14.5) % Plt Count 242 (130-400) K/uL MPV 11.0 H (7.4-10.4) fL Immature Gran % (Auto) 0.1 % Neut % (Auto) 86.3 % Lymph % (Auto) 7.7 % [place] % (Auto) 5.2 % Eos % (Auto) 0.5 % Baso % (Auto) 0.2 % Neut # (Auto) 7.54 H (1.4-6.5) K/uL Lymph # (Auto) 0.67 L (1.2-3.4) K/uL [place] # (Auto) 0.45 (0.11-0.59) K/uL Eos # (Auto) 0.04 (0-0.5) K/uL Baso # (Auto) 0.02 (0-0.2) K/uL Immature Gran # (Auto) 0.01 (0.00-0.02) K/uL PT 19.5 H (9.0-12.0) Seconds INR 1.9 H (0.9-1.1) APTT 78.6 H* (21.0-31.0) Seconds PTT Ratio 2.8 Sodium (136-145) mmol/L Potassium (3.5-5.1) mmol/L Chloride (98-107) mmol/L Carbon Dioxide (21-32) mmol/L Anion Gap (3-11) BUN (7-18) mg/dl Creatinine (0.6-1.2) mg/dl Est Cr Clr Drug Dosing ml/min Est GFR ( Amer) Est GFR (Non-Af Amer) BUN/Creatinine Ratio (10-20) Glucose (70-99) mg/dl POC Glucose (70-99) mg/dl Calcium (8.5-10.1) mg/dl Magnesium (1.8-2.4) mg/dl Total Bilirubin (0.2-1) mg/dl AST (15-37) U/L ALT (12-78) U/L Alkaline Phosphatase (45-117) U/L Troponin I (0-0.045) ng/ml Total Protein (6.4-8.2) gm/dl Albumin (3.4-5.0) gm/dl Globulin (2.5-4.0) gm/dl Albumin/Globulin Ratio (0.9-2) COVID-19 Eval Order SARS-CoV-2, RNA, NAAT (NEGATIVE) Blood Type Antibody Screen Diagnostic Findings CTAP: FINDINGS: Trace left pleural effusion, unchanged. This also a trace pericardial effusion. Aortic and mitral valve calcifications are again noted. There is a debris-filled moderate size hiatus hernia. Postoperative changes suggesting prior gastric bypass. No pneumoperitoneum. No pneumatosis. Chronic deformity and dislocation of the left hip, unchanged. There is a right total hip arthroplasty. Soft tissue thickening at the expected location of the left femoral head is also unchanged. Old, healed left-sided rib fractures. Scoliosis and degenerative changes again noted within the lumbar spine. Suspect a few tiny gallstones. The unenhanced liver, spleen, and pancreas are unremarkable. Bilateral adrenal gland thickening which is likely age-related. Normal right kidney without hydronephrosis. There is a dedicated left renal collecting system. Interval placement of a ureteral stent within the lower pole moiety. There is been interval decompression of the dilated lower pole moiety. Mild hydronephrosis within the left upper pole moiety has also improved. The left ureteral stent appears in good position. A Ramírez catheter present within the bladder. There is moderate bladder wall thickening with adjacent fat stranding. Small amount of gas within the bladder is likely due to the prior instrumentation. There are few punctate nonobstructing stones within the left kidney. This remains unchanged. There is a single mid left ureteral stone measuring 3 mm best seen on image 245. This is adjacent to the ureteral stent. The left ureteral stones have decreased in size and number. 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 Punctate left bladder calculi are again noted. Mild left perinephric edema. Small left renal hyper and hypodense lesions remain unchanged. These are incompletely characters on this noncontrast study but statistically represent cysts. Evidence for prior ventral hernia repair. Moderate body wall edema. Suboptimal evaluation for bowel pathology due to the lack of intravenous and oral contrast. There appears to be mild rectal wall thickening with adjacent fat stranding. Prior rectosigmoid anastomosis. No evidence for bowel obstruction. Possible thickening of the descending colon and sigmoid colon with mild adjacent fat stranding. A few scattered colonic diverticula. No evidence for acute diverticulitis. IMPRESSION: 1. Interval placement of a left ureteral stent which is located within the lower pole moiety of the duplicated left renal collecting system. The lower pole moiety hydronephrosis has resolved. There is also improvement in the mild hydronephrosis involving the left upper pole moiety. There is a residual 3 mm stone at the mid left ureter adjacent to the ureteral stent. The left ureteral stones have decreased in size and number compared the prior study. 2. Left-sided nephrolithiasis and a punctate left bladder calculi remain unchanged. 3. Gas within the bladder lumen is likely due to the Raímrez catheter. 4. Moderate bladder wall thickening with adjacent fat stranding. This could be due to the recent instrumentation or a cystitis. Recommend correlation with urinalysis. 5. Mild bowel wall thickening involving the descending colon, sigmoid colon, and rectum with adjacent fat stranding. Findings are consistent with a nonspecific proctocolitis and favor infectious or inflammatory process. 6. Cholelithiasis. 7. Trace left pleural effusion. 8. Additional findings as described above
--- NOTE | 2020-12-08 12:59 | Electrocardiogram Report ---
Test Reason : Blood Pressure : / mmHG Vent. Rate : 085 BPM Atrial Rate : 085 BPM P-R Int : 162 ms QRS Dur : 094 ms QT Int : 364 ms P-R-T Axes : 061 -19 108 degrees QTc Int : 433 ms Normal sinus rhythm Nonspecific ST and T wave abnormality Abnormal ECG When compared with ECG of 27-SEP-2020 08:25, No significant change was found Confirmed by Roberto Russo ([id number]) on 12/08/2020 12:59:48 PM Referred By: REFERRED SELF Confirmed By:Elliot Russo
--- NOTE | 2020-12-08 14:20 | Hospitalist Progress Note ---
Date of Service December 08, 2020 Assessment & Plan (1) GI bleed: Hematochezia Diarrhea H/O diverticulosis, internal hemorrhoids CT ABD:Mild bowel wall thickening involving the descending colon, sigmoid colon, and rectum with adjacent fat stranding. Findings are consistent with a nonspecif ic proctocolitis and favor infectious or inflammatory process. Cholelithiasis. DD: Hemorrhoids, diverticulosis, AVMs, malignancy H/O very poor bowel preparation for colonoscopy previously Needs prolonged outpatient prep prior to colonoscopy Negative COVID Screen R/O C.diff Appreciate GI input Advance diet as tolerated Monitor CBC Outpatient colonoscopy with in 4 to 6 weeks Factor V Leiden mutation H/O Recurrent PE/DVT S/P IVC filter placement INR slightly subtherapeutic Coumadin on hold Monitor INR:1.9 Plan to resume Coumadin if no recurrence of bleeding Hypokalemia secondary to emesis Replace electrolytes as needed Recent Complicated UTI Urine Cx from 12/02/20: Morganella Ongoing treatment with IV ertapenem from prior admission. Patient to complete 14-day course of IV antibiotics from November 02 as per ID recommendations Chronic diastolic heart failure EF 55 to 59%, TTE 2019 Severe aortic stenosis TAVR contemplated in the future pending cardiac catheterization Resume Lasix as able Hypertension hyperlipidemia Continue home meds H/O CVA, PVD as per records Continue statin Also on coumadin COPD At baseline Monitor Uterine Cancer S/P Radiation H/O Gastric bypass Mood disorder Functional disability/deconditioning, recurrent admissions Continue home meds DM II Last Hb A1C:5.10 June 2020 Continue Insulin therapy Monitor BGs DVT Px: SCDs Re: Hematochezia Code Status Full code Disposition To be determined PT/OT Family: Mr. Shon Osorio, contact #[phone]. Admission and Anticipated Discharge Date Admission Date: December 08, 2020 Subjective Patient is seen and examined at bedside Very sleepy earlier today States feeling tired, also states having diarrhea Reports chronic lower back pain Denies chest pain, shortness of breath, dizziness, nausea, abdominal pain Hb stable Review of Systems Review of Systems: All systems reviewed & are unremarkable except as noted in HPI & below Physical Exam Physical Exam: Physical Exam: Vitals signs as noted above General Appearance:Moderately built and nourished, no apparent distress Head: normocephalic, Atraumatic Eyes: normal inspection, EOMI Neck: supple, Trachea midline Respiratory/Chest: Normal breath sounds, CTA Cardiovascular: S1, S2, + systolic murmur Abdomen/GI:Soft,non tender, Bowel sounds present Extremities/Musculoskelatal:normal inspection, 1+ B/L LE edema Neurologic/Psych:AAOX3, grossly no focal neurological deficits Skin: normal color, warm Results & Data Results & Data ([facility]) Vital Signs (Past 12 Hours) Vital Signs Temp Pulse Pulse Resp BP BP Pulse Ox 12/08/20 11:02 36.3 C L 81 18 118/70 97 12/08/20 06:25 36.6 C 84 20 112/76 94 12/08/20 06:13 78 16 112/62 98 12/08/20 04:55 86 18 112/62 98 12/08/20 03:23 87 18 117/74 98 Laboratory Results Short CBC 12/08/20 12/08/20 Range/Units 00:50 08:39 WBC 8.73 (4.8-10.8) K/uL Hgb 10.6 L 9.9 L (12.0-16.0) g/dL Hct 33.4 L 31.3 L (37-47) % Plt Count 242 (130-400) K/uL BMP 12/08/20 00:50 Sodium 141 Potassium 3.3 L D Chloride 114 H Carbon Dioxide 24 BUN 27 H Creatinine 1.19 Glucose 102 H Calcium 7.5 L Cardiac Enzymes 12/08/20 Range/Units 00:50 Troponin I 0.021 (0-0.045) ng/ml Liver Function 12/08/20 Range/Units 00:50 Total Bilirubin 0.2 (0.2-1) mg/dl AST 32 (15-37) U/L ALT 31 (12-78) U/L Alkaline Phosphatase 136 H (45-117) U/L Albumin 1.5 L (3.4-5.0) gm/dl
[2020-12-08 15:52] LABS: Hematocrit (blood only) 30.1 % (37-47); Hemoglobin 9.4 g/dL (12.0-16.0)
[2020-12-08] MEDS: DULoxetine HCL 20 MG CAP PO SCH (20:53)
[2020-12-08] MEDS: ATORVASTATIN 40 MG TAB PO SCH (20:55)
[2020-12-09] MEDS: ERTAPENEM SODIUM 1,000 MG in SODIUM CHLORIDE 0.9% 50 ML IV SCH (07:39)
[2020-12-09] MEDS: OXYBUTYNIN CHLORIDE 5 MG TAB PO SCH ×2 (07:48→20:47)
[2020-12-09] MEDS: busPIRone 5 MG TAB PO SCH ×3 (07:48→20:47)
[2020-12-09] MEDS: MULTIVITAMIN CHEWABLE TAB PO SCH (07:48)
[2020-12-09] MEDS: ADVANCED PROBIOTIC 1250 MG CAPSULE PO SCH (07:48)
[2020-12-09] MEDS: METOPROLOL SUCC 25MG EXT REL TAB PO SCH ×2 (07:48→20:58)
[2020-12-09] MEDS: POTASSIUM CHLORIDE 10 MEQ TABCR PO SCH ×2 (07:48→20:47)
[2020-12-09] MEDS: PANTOprazole 40 MG TAB PO SCH (07:49)
[2020-12-09] MEDS: allopurinoL 100 MG TAB PO SCH ×2 (07:50→20:49)
[2020-12-09] MEDS: buPROPion SR 100 MG TABCR PO SCH ×2 (07:51→20:49)
[2020-12-09] MEDS: INSULIN ASPART 100 UNITS/ML 3 ML PEN SC SCH ×4 (07:57→20:48)
[2020-12-09] MEDS: oxyCODONE HCL IR 5 MG TAB (IMMEDIATE RELEASE) PO PRN ×2 (08:41→23:32)
[2020-12-09 12:27] LABS: Basophils # (auto) 0.02 K/uL (0-0.2); Basophils % (auto) 0.4 %; Eosinophils # (auto) 0.07 K/uL (0-0.5); Eosinophils % (auto) 1.3 %; Hematocrit (blood only) 33.3 % (37-47); Hemoglobin 10.2 g/dL (12.0-16.0); Immature Granulocytes # (auto) 0.01 K/uL (0.00-0.02); Immature Granulocytes % (auto) 0.2 %; Lymphocytes # (auto) 0.64 K/uL (1.2-3.4); Lymphocytes % (auto) 11.6 %; Mean Corpuscular Hemoglobin 28.4 pg (25-34); Mean Corpuscular Hgb Conc 30.6 g/dL (32-36); Mean Corpuscular Volume 92.8 fL (80-100); Mean Platelet Volume 11.5 fL (7.4-10.4); Monocytes # (auto) 0.38 K/uL (0.11-0.59); Monocytes % (auto) 6.9 %; Neutrophils # (auto) 4.39 K/uL (1.4-6.5); Neutrophils % (auto) 79.6 %; Platelet Count 207 K/uL (130-400); RDW Coefficient of Variation 18.2 % (11.5-14.5); RDW Standard Deviation 61.1 fL (36.4-46.3); Red Blood Count 3.59 M/uL (4.2-5.4); White Blood Count 5.51 K/uL (4.8-10.8)
[2020-12-09 12:34] LABS: INR 1.3 (0.9-1.1); Prothrombin Time 13.7 Seconds (9.0-12.0)
[2020-12-09 13:00] LABS: BUN Creatinine Ratio 23.7 (10-20); Creatinine Clr Calc Pharmacy 52.8 ml/min; Est GFR (African American) 63.5; Est GFR (Non-African American) 54.8; Magnesium 2.3 mg/dl (1.8-2.4); Potassium 4.7 mmol/L (3.5-5.1)
--- NOTE | 2020-12-09 13:22 | Hospitalist Progress Note ---
Date of Service December 09, 2020 Assessment & Plan (1) GI bleed: Hematochezia Diarrhea H/O diverticulosis, internal hemorrhoids CT ABD:Mild bowel wall thickening involving the descending colon, sigmoid colon, and rectum with adjacent fat stranding. Findings are consistent with a nonspecif ic proctocolitis and favor infectious or inflammatory process. Cholelithiasis. DD: Hemorrhoids, diverticulosis, AVMs, malignancy H/O very poor bowel preparation for colonoscopy previously Needs prolonged outpatient prep prior to colonoscopy Negative COVID Screen Stool for C.diff: Negative Appreciate GI input Advance diet as tolerated Monitor CBC Outpatient colonoscopy with in 4 to 6 weeks Denies any bleeding issues currently Factor V Leiden mutation H/O Recurrent PE/DVT S/P IVC filter placement INR slightly subtherapeutic on presentation Coumadin initially held Monitor INR:1.9>1.3 Resume Coumadin today Hypokalemia secondary to emesis Replace electrolytes as needed Recent Complicated UTI Urine Cx from 12/02/20: Morganella Ongoing treatment with IV ertapenem from prior admission. Patient to complete 14-day course of IV antibiotics from November 02 as per ID recommendations Chronic diastolic heart failure EF 55 to 59%, TTE 2019 Severe aortic stenosis TAVR contemplated in the future pending cardiac catheterization Resume Lasix today Hypertension hyperlipidemia Continue home meds H/O CVA, PVD as per records Continue statin Also on Coumadin COPD At baseline Monitor Uterine Cancer S/P Radiation H/O Gastric bypass Mood disorder Functional disability/deconditioning, recurrent admissions Continue home meds DM II Last Hb A1C:5.10 June 2020 Continue Insulin therapy Monitor BGs DVT Px: SCDs coumadin Code Status Full code Disposition PT/OT Case management to help with discharge planning Family: Mr. Shon Osorio, contact #[phone]. Admission and Anticipated Discharge Date Admission Date: December 08, 2020 Subjective Patient is seen and examined at bedside Denies any blood in stools More alert, awake, oriented today Currently not interested in rehab placement States having intermittent abdominal cramps Also reports chronic nausea, dysuria Denies chest pain, dyspnea, dizziness Review of Systems Review of Systems: All systems reviewed & are unremarkable except as noted in HPI & below Physical Exam Physical Exam: Physical Exam: Vitals signs as noted above General Appearance:Moderately built and nourished, no apparent distress Head: normocephalic, Atraumatic Eyes: normal inspection, EOMI Neck: supple, Trachea midline Respiratory/Chest: Normal breath sounds, CTA Cardiovascular: S1, S2, + systolic murmur Abdomen/GI:Soft,non tender, Bowel sounds present Extremities/Musculoskelatal:normal inspection, 1+ B/L LE edema Neurologic/Psych:AAOX3, grossly no focal neurological deficits Skin: normal color, warm Results & Data Results & Data ([facility]) Vital Signs (Past 12 Hours) Vital Signs Temp Pulse Pulse Resp BP Pulse Ox 12/09/20 11:06 36.2 C L 74 20 105/47 L 100 12/09/20 07:29 36.3 C L 65 20 126/77 93 12/09/20 07:13 67 12/09/20 03:21 36.3 C L 79 16 100/56 L 97 Laboratory Results Short CBC 12/08/20 12/09/20 Range/Units 15:38 12:05 WBC 5.51 (4.8-10.8) K/uL Hgb 9.4 L 10.2 L (12.0-16.0) g/dL Hct 30.1 L 33.3 L (37-47) % Plt Count 207 (130-400) K/uL BMP 12/09/20 12:05 Sodium 140 Potassium 4.7 D Chloride 115 H Carbon Dioxide 25 BUN 24 H Creatinine 1.01 Glucose 77 Calcium 8.0 L
[2020-12-09] MEDS: FUROSEMIDE 20 MG TAB PO SCH (15:24)
[2020-12-09] MEDS: WARFARIN SOD 2 MG TAB PO SCH (15:27)
[2020-12-09] MEDS: ATORVASTATIN 40 MG TAB PO SCH (20:47)
[2020-12-09] MEDS: DULoxetine HCL 20 MG CAP PO SCH (20:47)
[2020-12-10 07:25] LABS: Hematocrit (blood only) 32.5 % (37-47); Hemoglobin 10.1 g/dL (12.0-16.0)
[2020-12-10 07:42] LABS: INR 1.3 (0.9-1.1)
[2020-12-10 07:55] LABS: BUN Creatinine Ratio 22.8 (10-20); Calcium 8.4 mg/dl (8.5-10.1); Creatinine Clr Calc Pharmacy 55.2 ml/min; Est GFR (African American) 65.1; Est GFR (Non-African American) 56.1; Magnesium 2.1 mg/dl (1.8-2.4); Potassium 4.5 mmol/L (3.5-5.1)
[2020-12-10] MEDS: OXYBUTYNIN CHLORIDE 5 MG TAB PO SCH ×2 (08:26→21:02)
[2020-12-10] MEDS: busPIRone 5 MG TAB PO SCH ×3 (08:26→21:02)
[2020-12-10] MEDS: METOPROLOL SUCC 25MG EXT REL TAB PO SCH ×2 (08:26→21:03)
[2020-12-10] MEDS: POTASSIUM CHLORIDE 10 MEQ TABCR PO SCH ×2 (08:27→21:02)
[2020-12-10] MEDS: FUROSEMIDE 20 MG TAB PO SCH (08:27)
[2020-12-10] MEDS: MULTIVITAMIN CHEWABLE TAB PO SCH (08:27)
[2020-12-10] MEDS: buPROPion SR 100 MG TABCR PO SCH ×2 (08:28→21:03)
[2020-12-10] MEDS: ADVANCED PROBIOTIC 1250 MG CAPSULE PO SCH (08:28)
[2020-12-10] MEDS: PANTOprazole 40 MG TAB PO SCH (08:28)
[2020-12-10] MEDS: allopurinoL 100 MG TAB PO SCH ×2 (08:29→21:03)
[2020-12-10] MEDS: INSULIN ASPART 100 UNITS/ML 3 ML PEN SC SCH ×4 (08:31→21:03)
[2020-12-10] MEDS: ERTAPENEM SODIUM 1,000 MG in SODIUM CHLORIDE 0.9% 50 ML IV SCH (08:34)
--- NOTE | 2020-12-10 12:39 | Hospitalist Progress Note ---
Date of Service December 10, 2020 Assessment & Plan (1) GI bleed: Hematochezia Diarrhea H/O diverticulosis, internal hemorrhoids CT ABD:Mild bowel wall thickening involving the descending colon, sigmoid colon, and rectum with adjacent fat stranding. Findings are consistent with a nonspecif ic proctocolitis and favor infectious or inflammatory process. Cholelithiasis. DD: Hemorrhoids, diverticulosis, AVMs, malignancy H/O very poor bowel preparation for colonoscopy previously Needs prolonged outpatient prep prior to colonoscopy Negative COVID Screen Stool for C.diff: Negative Appreciate GI input Monitor CBC Outpatient colonoscopy with in 4 to 6 weeks No recurrence of blood in stool Tolerating regular diet Factor V Leiden mutation H/O Recurrent PE/DVT S/P IVC filter placement INR slightly subtherapeutic on presentation Coumadin initially held Monitor INR:1.9>1.3>1.3 Continue Coumadin (Resumed on 12/09/20) Hypokalemia secondary to emesis Replace electrolytes as needed Recent Complicated UTI Urine Cx from 12/02/20: Morganella Ongoing treatment with IV ertapenem from prior admission. Patient to complete 14-day course of IV antibiotics from November 02 as per ID recommendations Last dose of IV Ertapenem on 12/16/20 Chronic diastolic heart failure EF 55 to 59%, TTE 2019 Severe aortic stenosis TAVR contemplated in the future pending cardiac catheterization Continue Lasix Hypertension hyperlipidemia Continue home meds H/O CVA, PVD as per records Continue statin Also on Coumadin COPD At baseline Monitor Uterine Cancer S/P Radiation H/O Gastric bypass Mood disorder Functional disability/deconditioning, recurrent admissions Continue home meds DM II Last Hb A1C:5.10 June 2020 Continue Insulin therapy Monitor BGs DVT Px: SCDs coumadin Code Status Full code Disposition PT/OT Not interested in Rehab placement Case management to help with discharge planning Family: Mr. Shon Osorio, contact #[phone]. Admission and Anticipated Discharge Date Admission Date: December 08, 2020 Subjective Patient is seen and examined at bedside States feeling better today Generalized weakness, abdominal cramping slowly improving Tolerates food better today Denies any recurrence of blood in stool Persistent dysuria Denies chest pain, dyspnea, dizziness Review of Systems Review of Systems: All systems reviewed & are unremarkable except as noted in HPI & below Physical Exam Physical Exam: Physical Exam: Vitals signs as noted above General Appearance:Moderately built and nourished, no apparent distress Head: normocephalic, Atraumatic Eyes: normal inspection, EOMI Neck: supple, Trachea midline Respiratory/Chest: Normal breath sounds, CTA Cardiovascular: S1, S2, + systolic murmur Abdomen/GI:Soft,non tender, Bowel sounds present Extremities/Musculoskelatal:normal inspection, 1+ B/L LE edema Neurologic/Psych:AAOX3, grossly no focal neurological deficits Skin: normal color, warm Results & Data Results & Data ([facility]) Vital Signs (Past 12 Hours) Vital Signs Temp Pulse Pulse Resp BP Pulse Ox 12/10/20 11:37 36.9 C 77 20 105/54 L 99 12/10/20 07:49 36.4 C L 75 20 137/76 97 12/10/20 07:42 71 12/10/20 03:41 36.7 C 67 16 105/69 97 12/10/20 01:29 76 Laboratory Results Short CBC 12/10/20 Range/Units 07:16 Hgb 10.1 L (12.0-16.0) g/dL Hct 32.5 L (37-47) % BMP 12/09/20 12/10/20 12:05 07:16 Sodium 140 139 Potassium 4.7 D 4.5 Chloride 115 H 112 H Carbon Dioxide 25 21 BUN 24 H 23 H Creatinine 1.01 0.99 Glucose 77 74 Calcium 8.0 L 8.4 L
[2020-12-10] MEDS: oxyCODONE HCL IR 5 MG TAB (IMMEDIATE RELEASE) PO PRN ×2 (15:06→21:03)
[2020-12-10] MEDS: WARFARIN SOD 2 MG TAB PO SCH (17:01)
[2020-12-10] MEDS: DULoxetine HCL 20 MG CAP PO SCH (21:02)
[2020-12-10] MEDS: ATORVASTATIN 40 MG TAB PO SCH (21:03)
[2020-12-11 06:20] LABS: Hematocrit (blood only) 30.7 % (37-47); Hemoglobin 9.5 g/dL (12.0-16.0)
[2020-12-11 06:30] LABS: INR 1.5 (0.9-1.1); Prothrombin Time 15.4 Seconds (9.0-12.0)
[2020-12-11 06:52] LABS: BUN Creatinine Ratio 27.2 (10-20); Calcium 7.5 mg/dl (8.5-10.1); Creatinine Clr Calc Pharmacy 58.6 ml/min; Est GFR (African American) 71.1; Est GFR (Non-African American) 61.3; Potassium 4.2 mmol/L (3.5-5.1)
[2020-12-11] MEDS: ADVANCED PROBIOTIC 1250 MG CAPSULE PO SCH (08:41)
[2020-12-11] MEDS: METOPROLOL SUCC 25MG EXT REL TAB PO SCH ×2 (08:41→21:01)
[2020-12-11] MEDS: MULTIVITAMIN CHEWABLE TAB PO SCH (08:42)
[2020-12-11] MEDS: OXYBUTYNIN CHLORIDE 5 MG TAB PO SCH ×2 (08:42→21:00)
[2020-12-11] MEDS: FUROSEMIDE 20 MG TAB PO SCH (08:42)
[2020-12-11] MEDS: busPIRone 5 MG TAB PO SCH ×3 (08:42→21:01)
[2020-12-11] MEDS: POTASSIUM CHLORIDE 10 MEQ TABCR PO SCH ×2 (08:42→21:01)
[2020-12-11] MEDS: allopurinoL 100 MG TAB PO SCH ×2 (08:42→21:01)
[2020-12-11] MEDS: buPROPion SR 100 MG TABCR PO SCH ×2 (08:42→21:00)
[2020-12-11] MEDS: PANTOprazole 40 MG TAB PO SCH (08:42)
[2020-12-11] MEDS: INSULIN ASPART 100 UNITS/ML 3 ML PEN SC SCH ×4 (08:43→22:20)
[2020-12-11] MEDS: ERTAPENEM SODIUM 1,000 MG in SODIUM CHLORIDE 0.9% 50 ML IV SCH (08:52)
[2020-12-11] MEDS ORDERED: POLYETHYLENE (MIRALAX) 17 GM PACK PO ONE (10:00)
[2020-12-11] MEDS: oxyCODONE HCL IR 5 MG TAB (IMMEDIATE RELEASE) PO PRN (12:19)
--- NOTE | 2020-12-11 12:28 | Hospitalist Progress Note ---
Date of Service December 11, 2020 Assessment & Plan (1) GI bleed: Hematochezia Diarrhea on presentation H/O diverticulosis, internal hemorrhoids CT ABD:Mild bowel wall thickening involving the descending colon, sigmoid colon, and rectum with adjacent fat stranding. Findings are consistent with a nonspecific proctocolitis and favor infectious or inflammatory process. Cholelithiasis. DD: Hemorrhoids, diverticulosis, AVMs, malignancy H/O very poor bowel preparation for colonoscopy previously Needs prolonged outpatient prep prior to colonoscopy Negative COVID Screen Stool for C.diff: Negative Appreciate GI input Monitor CBC Outpatient colonoscopy with in 4 to 6 weeks No recurrence of blood in stool Tolerating regular diet Coumadin resumed Factor V Leiden mutation H/O Recurrent PE/DVT S/P IVC filter placement INR slightly subtherapeutic on presentation Coumadin initially held Monitor INR:1.9>1.3>1.3>1.5 Continue Coumadin (Resumed on 12/09/20) Adjust coumadin as required Hypokalemia secondary to emesis Replace electrolytes as needed Recent Complicated UTI Urine Cx from 12/02/20: Morganella Ongoing treatment with IV ertapenem from prior admission. Patient to complete 14-day course of IV antibiotics from November 02 as per ID recommendations Last dose of IV Ertapenem on 12/16/20 Will Consult Urology given left flank pain with recent stent placement Chronic diastolic heart failure EF 55 to 59%, TTE 2019 Severe aortic stenosis TAVR contemplated in the future pending cardiac catheterization Continue Lasix Hypertension hyperlipidemia Continue home meds H/O CVA, PVD as per records Continue statin Also on Coumadin COPD At baseline Monitor Uterine Cancer S/P Radiation H/O Gastric bypass Mood disorder Functional disability/deconditioning, recurrent admissions Continue home meds DM II Last Hb A1C:5.10 June 2020 Continue Insulin therapy Monitor BGs DVT Px: SCDs Coumadin Code Status Full code Disposition PT/OT Not interested in Rehab placement Case management to help with discharge planning Family: Mr. Shon Osorio, contact #[phone]. Admission and Anticipated Discharge Date Admission Date: December 08, 2020 Subjective Patient is seen and examined at bedside Reports constipation, Left flank pain, dysuria today No other complaints Denies any bleeding issues Also denies chest pain, dyspnea, dizziness Physical Exam Physical Exam: Physical Exam: Vitals signs as noted above General Appearance:Moderately built and nourished, no apparent distress Head: normocephalic, Atraumatic Eyes: normal inspection, EOMI Neck: supple, Trachea midline Respiratory/Chest: Normal breath sounds, Basal crackles Cardiovascular: S1, S2, + systolic murmur Abdomen/GI:Soft,non tender, Bowel sounds present Extremities/Musculoskelatal:normal inspection, 1+ B/L LE edema Neurologic/Psych:AAOX3, grossly no focal neurological deficits Skin: normal color, warm Results & Data Results & Data ([facility]) Vital Signs (Past 12 Hours) Vital Signs Temp Pulse Pulse Resp BP Pulse Ox 12/11/20 11:48 36.4 C L 78 20 118/81 96 12/11/20 07:44 63 12/11/20 07:39 36.4 C L 66 20 110/63 98 12/11/20 04:00 36.4 C L 63 18 129/63 98 Laboratory Results Short CBC 12/11/20 Range/Units 06:02 Hgb 9.5 L (12.0-16.0) g/dL Hct 30.7 L (37-47) % BMP 12/11/20 06:02 Sodium 140 Potassium 4.2 Chloride 113 H Carbon Dioxide 23 BUN 25 H Creatinine 0.92 Glucose 67 L Calcium 7.5 L
--- NOTE | 2020-12-11 13:43 | Urology Consultation ---
Date of Consultation December 11, 2020 Assessment & Plan (1) GI bleed: (2) Weakness: (3) UTI (urinary tract infection), bacterial: Patient is continuing with antibiotics for Morganella infection. Has stent in place. Has decreased burden stone with on imaging likely due to dilation with stent placement. Patient has been tolerating stent today with decreased pain and no major issues. Is being worked up for her GI related issues and bleed. Patient recent imaging was reviewed interpreted by myself. Majority of stone fragments appear to have passed. Stent is in good position with decreased hydronephrosis in both segments. Patient complicated medical and surgical history is all reviewed and summarized above. Patient is resting comfortably. We will need to, with plan for management of stone at some point. Would likely wait until patient has resolved majority of these issues. Also will need full course of antibiotics due to severity of infection. Had severely purulent urine in both bladder and kidney. 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 We will plan with supportive care. Will monitor. Patient will likely need outpatient follow-up to discuss further intervention with stone. Due to decreased burden may be able to pass remainder of stone fragments with hydration and stent however may need intervention. Call if any major changes issues fevers or chills. (4) Ureterolithiasis: (5) Obstructed, uropathy: History of Present Illness Attending Physician: Edgardo Lema MD History of Present Illness New consultation for patient with Recent admission for obstructing stone with UTI/Pyelo, discomfort, and ill feelings. Admitted this time with GI bleed. Being followed closely by the hospitalist team. Patient developed sudden onset of pain into flank going down and radiating into groin and back in waves comes and goes. Had previously troubles tolerating stent. Has had a recent stone with recent intervention with new stone development. Can be severe at times.e. Patient was admitted and is undergoing continue observation with continuation of broad spectrum IV antibiotics. Patient had significant UTI. Had a large amount of debris within bladder. Is tolerating catheter. Stent discomfort has gone down considerably. Patient is being hydrated. Is being watched closely. New imaging shows a decreased burden of stone after stent placement likely from spontaneous passage with passive dilation due to stent in place. Majority of issues are being managed from issues related to GI bleed. Is on anticoagulation due to a factor V Leiden mutation. Allergies Allergy/AdvReac Type Severity Reaction Status Date / Time adhesive Allergy Intermediate BLISTERS Verified 12/01/20 15:55 WITH STERI-STRIPS Iodinated Contrast Media Allergy Intermediate hive Verified 12/01/20 15:55 [Iodinated Contrast- Oral and IV Dye] naproxen Allergy Intermediate SWELLING - Verified 12/01/20 15:55 TOLERATES ESTEVES-[address] HALL ciprofloxacin Allergy Mild RASH Verified 12/01/20 15:55 Quinolones Allergy Mild NEUROLOGIC Verified 12/01/20 15:55 SYMPTOMS Home Medications Medication Instructions Recorded Confirmed Type allopurinol 100 mg PO BID 06/23/19 12/08/20 History buspirone 5 mg PO TID 06/23/19 12/08/20 History cyanocobalamin (vitamin B-12) 1,000 mcg IM UD 06/23/19 12/08/20 History duloxetine [Cymbalta] 40 mg PO HS 06/23/19 12/08/20 History ondansetron 4 mg PO Q8H PRN 06/23/19 12/08/20 History Flintstones Complete 1 tab PO QAM 08/27/19 12/08/20 History atorvastatin 40 mg PO PM 12/31/19 12/08/20 History bupropion HCl [Wellbutrin SR] 200 mg PO BID 12/31/19 12/08/20 History calcium carbonate [Tums Extra 750 mg PO UD PRN 12/31/19 12/08/20 History Strength Smoothies] nystatin 1 appln TOP BID PRN 12/31/19 12/08/20 History omeprazole 20 mg PO QAM 12/31/19 12/08/20 History oxybutynin chloride 5 mg PO BID 12/31/19 12/08/20 History Probiotic 3,000 mmu cells PO QAM 06/21/20 12/08/20 History potassium chloride [K-Tab] 10 meq PO BID 06/21/20 12/08/20 History warfarin 2 mg PO DAILY 08/01/20 12/08/20 History metoprolol succinate 12.5 mg PO BID 09/25/20 12/08/20 History cholecalciferol (vitamin D3) 50 mcg PO DAILY 12/01/20 12/08/20 History docusate sodium 100 mg PO BID 12/01/20 12/08/20 History loperamide 2 mg PO Q4H PRN 12/01/20 12/08/20 History furosemide 20 mg PO 2XWK 12/08/20 12/08/20 History furosemide 20 mg PO DAILY 12/08/20 12/08/20 History oxycodone 5 mg PO Q4 PRN 12/08/20 12/08/20 History Patient History Medical History Aortic stenosis, severe PAULY 0.62-0.66 cm2 per 08/31/2020 echo. Patient seen by [facility] valve clinic 08/14/20 for possible TAVR, workup initiated with repeat echo, but patient subsequently admitted to [facility] again for urologic issues. 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 Per cardiology consult , "Only mild left ventricular dysfunction and suspect stress mediated etiology rather than acute ischemic event. Patient on appropriate beta-sheryl therapy." Apical wall motion abnormality resolved on 08/04/20 ECHO Atrial fibrillation follows with Michael Bui> NO PACER Bleeding hemorrhoids Carotid artery stenosis [place] , 50%, LICA 50-69% by 04/09/19 doppler Chronic diastolic heart failure CKD (chronic kidney disease), stage III Degenerative disc disease Depression Dyslipidemia Factor 5 Leiden mutation, heterozygous recurrent PE/DVT; status post IVC filter placement, on Coumadin Frequent UTI RECENT HOSPITALIZATION GERD (gastroesophageal reflux disease) [place] filter in place History of COPD "MILD" History of esophageal disorder esophageal diverticulum History of peripheral neuropathy bilateral feet History of stress incontinence Hx of cancer of uterus diagnosed 03/2019---radiation only Hx of gout Hx of iron deficiency anemia Hypertension Intestinal disorder post op malabsorption Non-ST elevation NE (NSTEMI) In setting of acute illness (urosepsis 2/2 obstructing stone) 06/21/20 On anticoagulant therapy warfarin daily NICOLASA on CPAP Pes planus Post traumatic stress disorder Pulmonary embolism hx of bilateral ~2003 2/2 FFL Sleep apnea CPAP Spinal stenosis Stroke 06/03/2019 after I&D left hip--vision loss in left eye--no neurologist Vision abnormalities r peripheral vision loss( posterior ischemic optic neuropathyleft eye), left side altered vision like looking through a screen door Weakness Wheelchair dependence Surgical History H/O cystoscopy 06/23/20 and 07/20/20 [facility] History of arthroplasty of left hip 2006 @ [facility]--infected after, multiple sx's History of biopsy of bladder benign History of colonoscopy with polypectomy History of incision and drainage 05/2019 of left hip History of left hip replacement 03/2019 @ [facility] [place] History of left shoulder replacement History of right hip replacement 2005 @ [facility] History of tonsillectomy and adenoidectomy History of tooth extraction Hx of gastric bypass 2016 Hx of tubal ligation Hx of umbilical hernia repair mesh inserted S/P colon resection 1984 @ [facility] complete sigmoid removed d/t diverticular disease Family History Mother , age 91 Heart disease Family hx colonic polyps Father , age 42 Factor V deficiency Myocardial infarction Sister No problems noted. Sister Endometrial cancer Brother Family hx colonic polyps Brother , age 50 Meningitis Brother No problems noted. Brother No problems noted. Son No problems noted. Son No problems noted. Son Colon abnormality Son , in his 30 `s , " girl friend over dosed the patients son " Drug overdose Grandfather (Paternal) Family history of diabetes mellitus Family hx of colon cancer Other No family history of adverse response to anesthesia Social History Smoking Status: Former smoker Tobacco Type: Cigarettes Age Started Using Tobacco: 22; packs per day: 0.5; Years Smoked: 25; Second Hand Exposure: No; Do You Dip or Chew Tobacco: No; Hx Alcohol Use: No Hx Substance Use: No Preferred Language: Yi Communication Ability: Effective Visual Impairment: No Limitations Hearing Ability: Normal Newcomer Hostess Required: No Beliefs That Will Affect Care: None marital status: / Current Living Situation: Family Current Living Situation Comment: son current occupational status: retired 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 Advanced age. Chronic Medical issues. HEENT: Normocephalic. Inspection normal. Cranial Nerves 2-12 Grossly intact with some hearing issues. Normal inspection of face. Normal inspection of neck. Psychologic: Normal affect. Baseline issues with memory. Respiratory: Nonlabored. No use of accessory muscles. No tachypnea or dyspnea. Cardiovascular: No tachycardia Skin: [place] and Dry. No rashes or visible lesions. Extremities/Lymphatics: Significant edema. PICC line left upper extremity. Minor Mobility issues. Slow Gait. Abdomen: Morbidly obese. Non-distended. No rebound or guarding. : Ramírez in place draining clear yellow urine Results & Data ([facility]) Vital Signs (Past 12 Hours) Vital Signs Temp Pulse Pulse Resp BP Pulse Ox 12/11/20 11:48 36.4 C L 78 20 118/81 96 12/11/20 07:44 63 12/11/20 07:39 36.4 C L 66 20 110/63 98 12/11/20 04:00 36.4 C L 63 18 129/63 98 PG Care Time/CCT Total # of Minutes Spent Total Time Spent with Patient: Total time spent is greater than 50% in coordination of care (as documented) at patient's floor/unit and/or counseling patient: Coding Level of Care Code 50987 Inpt Consult Level 5 Diagnoses GI bleed K92.2 Weakness R53.1 UTI (urinary tract infection), bacterial N39.0; A49.9 Ureterolithiasis N20.1 Obstructed, uropathy N13.9
[2020-12-11] MEDS: WARFARIN SOD 2 MG TAB PO SCH (15:59)
[2020-12-11] MEDS: DULoxetine HCL 20 MG CAP PO SCH (21:00)
[2020-12-11] MEDS: ATORVASTATIN 40 MG TAB PO SCH (21:00)
[2020-12-12 07:53] LABS: Hematocrit (blood only) 30.6 % (37-47); Hemoglobin 9.6 g/dL (12.0-16.0)
[2020-12-12 08:04] LABS: INR 1.5 (0.9-1.1); Prothrombin Time 15.7 Seconds (9.0-12.0)
[2020-12-12] MEDS: allopurinoL 100 MG TAB PO SCH ×2 (08:13→20:44)
[2020-12-12] MEDS: PANTOprazole 40 MG TAB PO SCH (08:14)
[2020-12-12] MEDS: OXYBUTYNIN CHLORIDE 5 MG TAB PO SCH ×2 (08:14→20:42)
[2020-12-12] MEDS: FUROSEMIDE 20 MG TAB PO SCH (08:14)
[2020-12-12] MEDS: MULTIVITAMIN CHEWABLE TAB PO SCH (08:14)
[2020-12-12] MEDS: METOPROLOL SUCC 25MG EXT REL TAB PO SCH ×2 (08:14→20:15)
[2020-12-12] MEDS: buPROPion SR 100 MG TABCR PO SCH ×2 (08:14→20:41)
[2020-12-12] MEDS: ADVANCED PROBIOTIC 1250 MG CAPSULE PO SCH (08:14)
[2020-12-12] MEDS: busPIRone 5 MG TAB PO SCH ×3 (08:14→20:41)
[2020-12-12] MEDS: POTASSIUM CHLORIDE 10 MEQ TABCR PO SCH ×2 (08:14→20:42)
[2020-12-12] MEDS: INSULIN ASPART 100 UNITS/ML 3 ML PEN SC SCH ×4 (08:15→20:34)
[2020-12-12] MEDS: ERTAPENEM SODIUM 1,000 MG in SODIUM CHLORIDE 0.9% 50 ML IV SCH (08:21)
--- NOTE | 2020-12-12 08:34 | Urology Progress Note ---
Date of Service December 12, 2020 Assessment & Plan (1) GI bleed: (2) UTI (urinary tract infection), bacterial: (3) Ureterolithiasis: 75 year-old female patient, with multiple comorbidities, admitted secondary to weakness and GI bleed. -S/p cystoscopy, left ureteral stent placement with Dr. Castellanos on 12/02/20. -Imaging reviewed - left stent in place with improvement in left-sided hydronephrosis and decreased stone burden. -Remains on IV Ertapenem for Morganella UTI, plans for patient to complete 14 day course per previous ID recommendations. -Remains afebrile. -Recommend continued supportive care and antibiotic therapy. -No acute intervention indicated at this time. -Will plan for outpatient stone management, likely wait until acute issues (GI bleed) have resolved. -Expected clinical course reviewed with patient, all questions answered. Thank you for allowing us to participate in the acute care of Mrs. Liang. Please reconsult us with additional questions, concerns or changes in patient status. Admission and Anticipated Discharge Date Admission Date: December 08, 2020 Subjective Patient examined this morning, alert, awake, and non-toxic on exam. No reported issues overnight, slept well. Did report intermittent abdominal cramping and nausea last evening. Currently denies pain, nausea, or vomiting. Denies fevers or chills. She is tolerating mccurdy catheter without complications. States mild dizziness with sitting upright in bed. Denies syncope. Chart review: Afebrile Creatinine 12/11 stable 0.92 Hgb today 9.6. Urine culture 12/02 Morganella, currently on IV Ertapenem. Plans to complete 14 day course of IV Ertapenem 12/16. Denies additional urologic concerns today. Review of Systems 2 Constitutional: as per Subjective / HPI; no fever and no chills Gastrointestinal: as per Subjective / HPI; no vomiting Genitourinary: as per Subjective / HPI Neurologic: as per Subjective / HPI Physical Exam Constitutional: well developed and well nourished; no acute distress and not ill appearing Respiratory: normal respiratory effort and able to speak in complete sentences; no respiratory distress and no audible wheezes Gastrointestinal (Abdomen): Inspection/Auscultation: abdomen normal to inspection; abdomen not distended Percussion/Palpation: abdomen soft; abdomen nontender and no guarding Psychiatric: Orientation: alert, oriented x 3 and cooperative Affect: euthymic affect Genitourinary: no CVA tenderness Mccurdy catheter intact draining clear yellow urine with mild sediment. Results & Data ([facility]) Vital Signs (Past 12 Hours) Vital Signs Temp Pulse Pulse Resp BP Pulse Ox 12/12/20 07:18 61 18 107/67 98 12/12/20 04:06 71 12/12/20 03:17 36.4 C L 66 17 117/65 98 12/11/20 23:39 36.5 C 77 15 104/64 93 12/11/20 21:00 76 124/73 PG Care Time/CCT Total # of Minutes Spent Total Time Spent with Patient: Total time spent is greater than 50% in coordination of care (as documented) at patient's floor/unit and/or counseling patient: Coding Level of Care Code 25356 Subseq Hosp Care Lvl 2 Diagnoses GI bleed K92.2 UTI (urinary tract infection), bacterial N39.0; A49.9 Ureterolithiasis N20.1
--- NOTE | 2020-12-12 12:21 | Communication Note ---
Date of Service: December 12, 2020 GI was update regarding BRBPR. Pt known to service, planned for OP colon w/ extended prep for evaluation of hematochezia Contacted pt today Suggests today was first BM since in over one week Stool was formed. There was no straining Had BRB with the stool, coating. Rectal pain with BM. No rectal pain, abd pain No lightheadedness, dizziness, CP, SOB. 75 year old female to undergo OP colon w/ extended prep for rectal bleeding who had reccurrent episode of hematochezia today, hemodynamically stable, w/ stable HGB. Trend labs Monitor for ongoing s/s of GI blood loss Continue conservative treatment for now Start bowel regimen Colace 100 mg twice Miralax 1 capful twice daily Plan for OP colonoscopy
[2020-12-12] MEDS: oxyCODONE HCL IR 5 MG TAB (IMMEDIATE RELEASE) PO PRN ×2 (13:16→21:28)
--- NOTE | 2020-12-12 13:22 | Hospitalist Progress Note ---
Date of Service December 12, 2020 Assessment & Plan (1) GI bleed: Hematochezia Diarrhea on presentation H/O diverticulosis, internal hemorrhoids CT ABD:Mild bowel wall thickening involving the descending colon, sigmoid colon, and rectum with adjacent fat stranding. Findings are consistent with a nonspecific proctocolitis and favor infectious or inflammatory process. Cholelithiasis. DD: Hemorrhoids, diverticulosis, AVMs, malignancy H/O very poor bowel preparation for colonoscopy previously Needs prolonged outpatient prep prior to colonoscopy Negative COVID Screen Stool for C.diff: Negative Appreciate GI input Monitor CBC Planned for outpatient colonoscopy with in 4 to 6 weeks Had recurrence of bloody bowel movement today Hold Coumadin for now Will start bowel regimen as per GI If hemoglobin remains stable, no recurrence of bleeding--Plan to discharge for outpatient colonoscopy Factor V Leiden mutation H/O Recurrent PE/DVT S/P IVC filter placement INR slightly subtherapeutic on presentation Coumadin initially held Monitor INR:1.9>1.3>1.3>1.5 Coumadin (Resumed on 12/09/20)--Hold today given recurrence of bleeding Hypokalemia secondary to emesis Replace electrolytes as needed Recent Complicated UTI Urine Cx from 12/02/20: Morganella Ongoing treatment with IV ertapenem from prior admission. Patient to complete 14-day course of IV antibiotics from November 02 as per ID recommendations Last dose of IV Ertapenem on 12/16/20 Appreciate Urology Input Needs follow up Urology upon discharge Chronic diastolic heart failure EF 55 to 59%, TTE 2019 Severe aortic stenosis TAVR contemplated in the future pending cardiac catheterization Continue Lasix Hypertension hyperlipidemia Continue home meds H/O CVA, PVD as per records Continue statin Resume Coumadin as able COPD At baseline Monitor Uterine Cancer S/P Radiation H/O Gastric bypass Mood disorder Functional disability/deconditioning, recurrent admissions Continue home meds DM II Last Hb A1C:5.10 June 2020 Continue Insulin therapy Monitor BGs DVT Px: SCDs Coumadin--held today Code Status Full code Disposition PT/OT Not interested in Rehab placement Case management to help with discharge planning Family: Mr. Shon Osorio, contact #[phone]. Admission and Anticipated Discharge Date Admission Date: December 08, 2020 Subjective Patient is seen and examined at bedside Had a bloody bowel movement today Less abdominal pain/flank pain today Denies chest pain, dyspnea, dizziness, nausea, vomiting Discussed with GI today Review of Systems Review of Systems: All systems reviewed & are unremarkable except as noted in HPI & below Physical Exam Physical Exam: Physical Exam: Vitals signs as noted above General Appearance:Moderately built and nourished, no apparent distress Head: normocephalic, Atraumatic Eyes: normal inspection, EOMI Neck: supple, Trachea midline Respiratory/Chest: Normal breath sounds, Basal crackles Cardiovascular: S1, S2, + systolic murmur Abdomen/GI:Soft,non tender, Bowel sounds present Extremities/Musculoskelatal:normal inspection, 1+ B/L LE edema Neurologic/Psych:AAOX3, grossly no focal neurological deficits Skin: normal color, warm Results & Data Results & Data ([facility]) Vital Signs (Past 12 Hours) Vital Signs Temp Pulse Pulse Resp BP Pulse Ox 12/12/20 07:30 70 12/12/20 07:18 61 18 107/67 98 12/12/20 04:06 71 12/12/20 03:17 36.4 C L 66 17 117/65 98 Laboratory Results Short CBC 12/12/20 Range/Units 07:40 Hgb 9.6 L (12.0-16.0) g/dL Hct 30.6 L (37-47) %
[2020-12-12 14:25] LABS: Hematocrit (blood only) 31.6 % (37-47); Hemoglobin 10.1 g/dL (12.0-16.0)
[2020-12-12] MEDS: DOCUSATE SODIUM 100 MG CAP PO SCH (20:40)
[2020-12-12] MEDS: DULoxetine HCL 20 MG CAP PO SCH (20:41)
[2020-12-12] MEDS: ATORVASTATIN 40 MG TAB PO SCH (20:42)
[2020-12-12 22:08] LABS: Hematocrit (blood only) 30.3 % (37-47); Hemoglobin 9.5 g/dL (12.0-16.0)
[2020-12-12] MEDS ORDERED: ALBUMIN 25% 12.5 GM/50 ML VIAL IV ONE (23:30)
--- NOTE | 2020-12-12 23:47 | Communication Note ---
Date of Service: December 12, 2020 Notified by RN of patient complains of bilateral leg pain. LE venous Dopplers initial read: Partial compressibility at the CFV, RLE superficial femoral and popliteal veins with partial flow suggestive of partially occlusive thrombus. Calf veins are not well seen. Very little flow within anterior tibial vein cannot exclude thrombus at this level. No flow within posterior tibial and peroneal veins suggestive of occlusive thrombus at this levels. L LE difficult to see vascular structures with no distinct thrombus. AP Recurrent DVT History hypercoagulable state (factor V Leiden mutation plus recurrent PE DVT status post IVC filter placement) Coumadin currently on hold secondary to recurrent L GIB, decreasing hemoglobin Anticoagulation may need to be stopped permanently due to recurrent L GIB. Will relay to AM provider.
[2020-12-13] MEDS: ACETAMINOPHEN 325 MG TAB PO PRN ×2 (00:02→15:19)
[2020-12-13 00:18] LABS: Hemoglobin 8.9 g/dL (12.0-16.0)
[2020-12-13 00:28] LABS: Partial Thromboplastin Ratio 1.2; Partial Thromboplastin Time 30.6 Seconds (21.0-31.0)
--- NOTE | 2020-12-13 06:42 | Ultrasound Report ---
BILATERAL LOWER EXTREMITY VENOUS DOPPLER HISTORY: Acute pain and swelling of the lower legs leg pain COMPARISON STUDY: Doppler study 06/22/2020 FINDINGS: Within the right lower extremity partially occlusive thrombus is noted within the common fe moral, superficial femoral and popliteal veins. The calf veins on the right. Visualized, however thro mbus likely extends into the posterior tibial and peroneal veins. Minimal flow seen within the anteri or tibial vein which may also represent additional thrombus. No definite deep venous thrombosis identified within the left lower extremity. The posterior tibial a nd peroneal veins on the left are not diagnostically visualized. IMPRESSION: Extensive deep venous thrombosis of the right lower extremity. ACT 112: Negative or not required by law. Electronically signed by: Ezequiel Denise M.D. 12/13/2020 6:40 AM
[2020-12-13 07:34] LABS: Hematocrit (blood only) 27.5 % (37-47); Hemoglobin 8.7 g/dL (12.0-16.0)
[2020-12-13 07:36] LABS: INR 1.5 (0.9-1.1)
[2020-12-13 08:01] LABS: BUN Creatinine Ratio 27.9 (10-20); Calcium 8.1 mg/dl (8.5-10.1); Creatinine Clr Calc Pharmacy 59.2 ml/min; Est GFR (African American) 71.1; Est GFR (Non-African American) 61.3; Potassium 4.1 mmol/L (3.5-5.1)
--- NOTE | 2020-12-13 08:25 | Gastroenterology Progress Note ---
Date of Service December 13, 2020 Assessment & Plan (1) Hematochezia: This is a 75 y/o female with h/o severe , a-fib on Coumadin and others admitted with weakness following ureteral stent placement 12/02, and GI consulted for GI bleed. Pt has chronic intermittent low-volume hematochezia for which 2 colonoscopies have been done with poor prep. Yesterday, she had return of rectal bleeding x 2 episodes. Presently, feeling well, No further BMs, tolerating diet without GI concerns. Her vitals have remained stable, slight trickling down of HGB From 9.5 --> 8.7 CT with mild thickening in the descending colon/sigmoid/rectum, though study was without oral contrast. DDX discussed including hemorrhoids, diverticulosis, AVMs, malignancy. - As she is known to have very poor bowel preparation, would recommend outpt prep with liquid diet x 5 days prior, then 2 day prep with GoLytely to maximize the potential for a good examination; pt is agreeable and our office will arrange this - Would continue to monitor H&H during her hospitalization, and monitor BMs for any changes GI will sign off, please call with questions. Attg add: I interviewed and examined pt, reviewed chart and labs. Pt without sig chage in hgb, small vol rectal bleeding. Will arrange for outpt cscopy. Admission and Anticipated Discharge Date Admission Date: December 08, 2020 Subjective Pt was seen and evaluated, chart reviewed. No further BM since initial episode of rectal bleeding yesterday. Feeling well. No abd pain, nausea/vomiting. In finishing her breakfast at time of my evaluation. Review of Systems Constitutional: no fever, no chills and no fatigue Respiratory: no cough and no dyspnea Cardiovascular: no chest pain and no dyspnea Gastrointestinal: + blood in stools (yesterday); no abdominal pain, no hematemesis, no change in bowel habits, no change in stools, no diarrhea/loose stools and no melena Physical Exam Constitutional: well nourished; no acute distress Neck: trachea midline Respiratory: normal respiratory effort; no respiratory distress, no labored breathing and does not use accessory muscles Auscultation: lungs clear to auscultation bilaterally Cardiovascular: Rate/Rhythm: regular rate and regular rhythm Gastrointestinal (Abdomen): Percussion/Palpation: abdomen soft; abdomen nontender, no guarding, abdomen not rigid and no ascites Skin: no rashes, warm and dry Results & Data ([facility]) Vital Signs (Past 12 Hours) Vital Signs Temp Pulse Pulse Resp BP Pulse Ox 12/13/20 07:43 36.5 C 68 18 107/67 94 12/13/20 07:21 71 12/13/20 03:14 36.6 C 72 18 99/64 L 95 12/12/20 22:05 37.2 C 83 18 80/50 L 98 Laboratory Results 12/13/20 12/13/20 12/13/20 Range/Units 07:49 06:51 06:51 Hgb (12.0-16.0) g/dL Hct (37-47) % PT 15.0 H (9.0-12.0) Seconds INR 1.5 H (0.9-1.1) APTT (21.0-31.0) Seconds PTT Ratio Sodium 140 (136-145) mmol/L Potassium 4.1 (3.5-5.1) mmol/L Chloride 111 H (98-107) mmol/L Carbon Dioxide 23 (21-32) mmol/L Anion Gap 6.0 (3-11) BUN 26 H (7-18) mg/dl Creatinine 0.92 (0.6-1.2) mg/dl Est Cr Clr Drug Dosing 59.2 ml/min Est GFR ( Amer) 71.1 Est GFR (Non-Af Amer) 61.3 BUN/Creatinine Ratio 27.9 H (10-20) Glucose 72 (70-99) mg/dl POC Glucose 89 (70-99) mg/dl Calcium 8.1 L (8.5-10.1) mg/dl 12/13/20 12/13/20 12/13/20 Range/Units 06:51 00:00 00:00 Hgb 8.7 L 8.9 L (12.0-16.0) g/dL Hct 27.5 L 28.0 L (37-47) % PT (9.0-12.0) Seconds INR (0.9-1.1) APTT 30.6 (21.0-31.0) Seconds PTT Ratio 1.2 Sodium (136-145) mmol/L Potassium (3.5-5.1) mmol/L Chloride (98-107) mmol/L Carbon Dioxide (21-32) mmol/L Anion Gap (3-11) BUN (7-18) mg/dl Creatinine (0.6-1.2) mg/dl Est Cr Clr Drug Dosing ml/min Est GFR ( Amer) Est GFR (Non-Af Amer) BUN/Creatinine Ratio (10-20) Glucose (70-99) mg/dl POC Glucose (70-99) mg/dl Calcium (8.5-10.1) mg/dl 12/12/20 12/12/20 12/12/20 Range/Units 21:52 20:25 16:32 Hgb 9.5 L (12.0-16.0) g/dL Hct 30.3 L (37-47) % PT (9.0-12.0) Seconds INR (0.9-1.1) APTT (21.0-31.0) Seconds PTT Ratio Sodium (136-145) mmol/L Potassium (3.5-5.1) mmol/L Chloride (98-107) mmol/L Carbon Dioxide (21-32) mmol/L Anion Gap (3-11) BUN (7-18) mg/dl Creatinine (0.6-1.2) mg/dl Est Cr Clr Drug Dosing ml/min Est GFR ( Amer) Est GFR (Non-Af Amer) BUN/Creatinine Ratio (10-20) Glucose (70-99) mg/dl POC Glucose 95 106 H (70-99) mg/dl Calcium (8.5-10.1) mg/dl 12/12/20 12/12/20 Range/Units 13:59 11:21 Hgb 10.1 L (12.0-16.0) g/dL Hct 31.6 L (37-47) % PT (9.0-12.0) Seconds INR (0.9-1.1) APTT (21.0-31.0) Seconds PTT Ratio Sodium (136-145) mmol/L Potassium (3.5-5.1) mmol/L Chloride (98-107) mmol/L Carbon Dioxide (21-32) mmol/L Anion Gap (3-11) BUN (7-18) mg/dl Creatinine (0.6-1.2) mg/dl Est Cr Clr Drug Dosing ml/min Est GFR ( Amer) Est GFR (Non-Af Amer) BUN/Creatinine Ratio (10-20) Glucose (70-99) mg/dl POC Glucose 100 H (70-99) mg/dl Calcium (8.5-10.1) mg/dl
[2020-12-13] MEDS: DOCUSATE SODIUM 100 MG CAP PO SCH ×2 (08:28→21:08)
[2020-12-13] MEDS: POLYETHYLENE (MIRALAX) 17 GM PACK PO SCH (08:28)
[2020-12-13] MEDS: buPROPion SR 100 MG TABCR PO SCH ×2 (08:29→21:08)
[2020-12-13] MEDS: OXYBUTYNIN CHLORIDE 5 MG TAB PO SCH ×2 (08:30→21:08)
[2020-12-13] MEDS: allopurinoL 100 MG TAB PO SCH ×2 (08:30→21:07)
[2020-12-13] MEDS: MULTIVITAMIN CHEWABLE TAB PO SCH (08:30)
[2020-12-13] MEDS: FUROSEMIDE 20 MG TAB PO SCH (08:30)
[2020-12-13] MEDS: ADVANCED PROBIOTIC 1250 MG CAPSULE PO SCH (08:30)
[2020-12-13] MEDS: busPIRone 5 MG TAB PO SCH ×3 (08:31→21:08)
[2020-12-13] MEDS: POTASSIUM CHLORIDE 10 MEQ TABCR PO SCH ×2 (08:31→21:09)
[2020-12-13] MEDS: METOPROLOL SUCC 25MG EXT REL TAB PO SCH ×2 (08:32→21:09)
[2020-12-13] MEDS: PANTOprazole 40 MG TAB PO SCH (08:32)
[2020-12-13] MEDS: INSULIN ASPART 100 UNITS/ML 3 ML PEN SC SCH ×4 (08:35→20:58)
[2020-12-13] MEDS: ERTAPENEM SODIUM 1,000 MG in SODIUM CHLORIDE 0.9% 50 ML IV SCH (08:41)
--- NOTE | 2020-12-13 11:37 | Hospitalist Progress Note ---
Date of Service December 13, 2020 Assessment & Plan (1) GI bleed: Hematochezia Diarrhea on presentation H/O diverticulosis, internal hemorrhoids CT ABD:Mild bowel wall thickening involving the descending colon, sigmoid colon, and rectum with adjacent fat stranding. Findings are consistent with a nonspecific proctocolitis and favor infectious or inflammatory process. Cholelithiasis. DD: Hemorrhoids, diverticulosis, AVMs, malignancy H/O very poor bowel preparation for colonoscopy previously Needs prolonged outpatient prep prior to colonoscopy, orders are in [place] paperwork Negative COVID Screen Stool for C.diff: Negative Monitor CBC another 24-48 hrs Planned for outpatient colonoscopy with in 4 to 6 weeks Had recurrence of bloody bowel movement yesterday Hold Coumadin for now If hemoglobin remains stable, no recurrence of bleeding--Plan to discharge for outpatient colonoscopy Factor V Leiden mutation H/O Recurrent PE/DVT S/P IVC filter placement INR slightly subtherapeutic on presentation Coumadin initially held Monitor INR:1.9>1.3>1.3>1.5 Coumadin (Resumed on 12/09/20)--on Hold due to recurrence of bleeding Hypokalemia secondary to emesis Replace electrolytes as needed Recent Complicated UTI Urine Cx from 12/02/20: Morganella Ongoing treatment with IV ertapenem from prior admission. Patient to complete 14-day course of IV antibiotics from November 02 as per ID recommendations Last dose of IV Ertapenem on 12/16/20 Appreciate Urology Input Needs follow up Urology upon discharge Chronic diastolic heart failure EF 55 to 59%, TTE 2019 Severe aortic stenosis TAVR contemplated in the future pending cardiac catheterization Continue Lasix Hypertension Hyperlipidemia Continue home meds H/O CVA, PVD as per records Continue statin Resume Coumadin as able COPD At baseline Monitor Uterine Cancer S/P Radiation H/O Gastric bypass Mood disorder Functional disability/deconditioning, recurrent admissions Continue home meds DM II Last Hb A1C:5.10 June 2020 Continue Insulin therapy Monitor BGs DVT Px: SCDs Coumadin--held today Code Status Full code DC home when Hb stops decreasing 3 more dys of IV Invanz Disposition PT/OT Not interested in Rehab placement Case management to help with discharge planning Family: Mr. Shon Osorio, contact #[phone]. Labs checked ROS-No Headache, No Visual Changes, No Nausea, No Vomiting, No Fever, No Chills, No Neck Pain or Stiffness, No Chest Pain, No Palpitations, No SOB, No MCLEOD, No Cough, No Sputum, No Wheezing, No Abdominal Pain, No Diarrhea, No Hematemesis, No Hemoptysis, No Unexpected Weight Loss, No Flank pain, No Melena, No Hematochezia, No Frequency, No Urgency, No Burning, No Hematuria, No Rashes, No Diaphoresis. Appetite is Normal Physical Exam Gen-AAO x 3, NAD, Afebrile Head-NCAT, EOMI, PERRLA, Anicteric Sclera, No Posterior Pharyngeal Erythema Neck-Supple, No JVD, No Thyromegaly, No Masses, No LAD, No Bruits Lungs-Clear to Auscultation Bilaterally, No Rales, No Rhonchi, No Wheezing, No Crepitus Chest-No S4, +S1, +S2, No S3, No Murmurs, No Rubs, No Gallops, No Ectopy Abdomen-Soft, Bowel Sounds Present, Non Tender, Non Distended, No Hepatomegaly, No Splenomegaly, No Palpable Masses, No Rebound, No Rigidity, No Guarding Musculoskeletal-Full Range of Motion Bilaterally, No CVAT Extremities-No Cyanosis, No Clubbing, No Edema Nuero-Cranial Nerves II-XII grossly intact, Motor WNL, DTRs WNL, Strength WNL, Non Focal Psych-Normal Mood Admission and Anticipated Discharge Date Admission Date: December 08, 2020 Results & Data Results & Data ([facility]) Vital Signs (Past 12 Hours) Vital Signs Temp Pulse Pulse Resp BP Pulse Ox 12/13/20 07:43 36.5 C 68 18 107/67 94 12/13/20 07:21 71 12/13/20 03:14 36.6 C 72 18 99/64 L 95
[2020-12-13] MEDS: oxyCODONE HCL IR 5 MG TAB (IMMEDIATE RELEASE) PO PRN ×2 (13:38→17:45)
[2020-12-13] MEDS: ATORVASTATIN 40 MG TAB PO SCH (21:10)
[2020-12-13] MEDS: DULoxetine HCL 20 MG CAP PO SCH (21:10)
[2020-12-14 07:37] LABS: BUN Creatinine Ratio 29.4 (10-20); Calcium 8.3 mg/dl (8.5-10.1); Creatinine Clr Calc Pharmacy 64.8 ml/min; Est GFR (African American) 79.4; Est GFR (Non-African American) 68.5; Potassium 4.3 mmol/L (3.5-5.1)
--- NOTE | 2020-12-14 08:59 | Hospitalist Progress Note ---
Date of Service December 14, 2020 Assessment & Plan (1) GI bleed: Hematochezia Diarrhea on presentation H/O diverticulosis, internal hemorrhoids CT ABD:Mild bowel wall thickening involving the descending colon, sigmoid colon, and rectum with adjacent fat stranding. Findings are consistent with a nonspecific proctocolitis and favor infectious or inflammatory process. Cholelithiasis. DD: Hemorrhoids, diverticulosis, AVMs, malignancy H/O very poor bowel preparation for colonoscopy previously Needs prolonged outpatient prep prior to colonoscopy, orders are in [place] paperwork Negative COVID Screen Stool for C.diff: Negative Monitor CBC another 24-48 hrs Planned for outpatient colonoscopy with in 4 to 6 weeks Had recurrence of bloody bowel movement yesterday Hold Coumadin for now If hemoglobin remains stable, no recurrence of bleeding--Plan to discharge for outpatient colonoscopy Factor V Leiden mutation H/O Recurrent PE/DVT S/P IVC filter placement INR slightly subtherapeutic on presentation Coumadin initially held Monitor INR Coumadin-on Hold due to recurrence of bleeding Hypokalemia secondary to emesis Replace electrolytes as needed Recent Complicated UTI Urine Cx from 12/02/20: Morganella Ongoing treatment with IV ertapenem from prior admission. Patient to complete 14-day course of IV antibiotics from November 02 as per ID recommendations Last dose of IV Ertapenem on 12/16/20 Appreciate Urology Input Needs follow up Urology upon discharge Chronic diastolic heart failure EF 55 to 59%, TTE 2019 Severe aortic stenosis TAVR contemplated in the future pending cardiac catheterization Continue Lasix Hypertension Hyperlipidemia Continue home meds H/O CVA, PVD as per records Continue statin Resume Coumadin as able COPD At baseline Monitor Uterine Cancer S/P Radiation H/O Gastric bypass Mood disorder Functional disability/deconditioning, recurrent admissions Continue home meds DM II Last Hb A1C:5.10 June 2020 Continue Insulin therapy Monitor BGs DVT Px: SCDs Coumadin--held today Code Status Full code DC home when Hb stops decreasing 2 more days of IV Invanz Disposition PT/OT Not interested in Rehab placement Case management to help with discharge planning Family: Mr. Shon Osorio, contact #[phone]. Labs checked, DC if Hb Stable ROS-No Headache, No Visual Changes, No Nausea, No Vomiting, No Fever, No Chills, No Neck Pain or Stiffness, No Chest Pain, No Palpitations, No SOB, No MCLEOD, No Cough, No Sputum, No Wheezing, No Abdominal Pain, No Diarrhea, No Hematemesis, No Hemoptysis, No Unexpected Weight Loss, No Flank pain, No Melena, No Hematochezia, No Frequency, No Urgency, No Burning, No Hematuria, No Rashes, No Diaphoresis. Appetite is Normal Physical Exam Gen-AAO x 3, NAD, Afebrile Head-NCAT, EOMI, PERRLA, Anicteric Sclera, No Posterior Pharyngeal Erythema Neck-Supple, No JVD, No Thyromegaly, No Masses, No LAD, No Bruits Lungs-Clear to Auscultation Bilaterally, No Rales, No Rhonchi, No Wheezing, No Crepitus Chest-No S4, +S1, +S2, No S3, No Murmurs, No Rubs, No Gallops, No Ectopy Abdomen-Soft, Bowel Sounds Present, Non Tender, Non Distended, No Hepatomegaly, No Splenomegaly, No Palpable Masses, No Rebound, No Rigidity, No Guarding Musculoskeletal-Full Range of Motion Bilaterally, No CVAT Extremities-No Cyanosis, No Clubbing, No Edema Nuero-Cranial Nerves II-XII grossly intact, Motor WNL, DTRs WNL, Strength WNL, Non Focal Psych-Normal Mood Admission and Anticipated Discharge Date Admission Date: December 08, 2020 Results & Data Results & Data ([facility]) Vital Signs (Past 12 Hours) Vital Signs Temp Pulse Pulse Resp BP Pulse Ox 12/14/20 08:03 36.5 C 96 H 16 143/71 H 94 12/14/20 03:32 91/52 L 12/14/20 03:13 36.5 C 71 17 67/51 L 98 12/14/20 00:08 71 12/13/20 22:55 36.6 C 68 18 116/73 98
[2020-12-14 09:11] LABS: Hematocrit (blood only) 28.1 % (37-47); Hemoglobin 8.8 g/dL (12.0-16.0); Mean Corpuscular Hemoglobin 28.5 pg (25-34); Mean Corpuscular Hgb Conc 31.3 g/dL (32-36); Mean Corpuscular Volume 90.9 fL (80-100); Mean Platelet Volume 11.2 fL (7.4-10.4); Platelet Count 181 K/uL (130-400); RDW Coefficient of Variation 18.2 % (11.5-14.5); RDW Standard Deviation 60.6 fL (36.4-46.3); Red Blood Count 3.09 M/uL (4.2-5.4); White Blood Count 5.03 K/uL (4.8-10.8)
[2020-12-14] MEDS: allopurinoL 100 MG TAB PO SCH (09:13)
[2020-12-14] MEDS: buPROPion SR 100 MG TABCR PO SCH (09:13)
[2020-12-14] MEDS: FUROSEMIDE 20 MG TAB PO SCH (09:13)
[2020-12-14] MEDS: METOPROLOL SUCC 25MG EXT REL TAB PO SCH (09:13)
[2020-12-14] MEDS: DOCUSATE SODIUM 100 MG CAP PO SCH (09:13)
[2020-12-14] MEDS: MULTIVITAMIN CHEWABLE TAB PO SCH (09:13)
[2020-12-14] MEDS: OXYBUTYNIN CHLORIDE 5 MG TAB PO SCH (09:14)
[2020-12-14] MEDS: POTASSIUM CHLORIDE 10 MEQ TABCR PO SCH (09:14)
[2020-12-14] MEDS: PANTOprazole 40 MG TAB PO SCH (09:14)
[2020-12-14] MEDS: busPIRone 5 MG TAB PO SCH ×2 (09:14→13:05)
[2020-12-14] MEDS: ADVANCED PROBIOTIC 1250 MG CAPSULE PO SCH (09:14)
[2020-12-14] MEDS: INSULIN ASPART 100 UNITS/ML 3 ML PEN SC SCH ×3 (09:15→17:42)
[2020-12-14] MEDS: POLYETHYLENE (MIRALAX) 17 GM PACK PO SCH (09:17)
[2020-12-14] MEDS: ERTAPENEM SODIUM 1,000 MG in SODIUM CHLORIDE 0.9% 50 ML IV SCH (09:31)
--- NOTE | 2020-12-14 09:34 | Discharge Summary ---
Date of Service December 14, 2020 Admission HPI Per Admitting Provider History obtained from patient and records. 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 Last confinement December 01-2020 for recurrent UTI secondary to obstructive uropathy status post left ureter placement. Urine CS grew MDR Morganella. Patient discharged yesterday on Ertapenem course. Patient had achy abdominal pain nausea emesis symptoms upon arrival at home. Dark bloody stools which happens from time to time at home. No chest pain, no S OB, no cough symptoms. Generalized weakness. No fever, no chills. Patient brought to the ER for urging of son. Patient son not comfortable taking patient home. Medical History as above 2019 colonoscopy showed inadequate colon preparation. Congested/erythematous mucosa rectosigmoid colon. Internal hemorrhoids. 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 Admission Exam Per Admitting Provider GENERAL: uncomfortable, no respiratory distress SKIN: Pallor , warm HEENT: Bespectacled, pale palpebral conjunctivae, no ptosis, dry buccal mucosa NECK : Supple, no tenderness CHEST : CTA, no tenderness HEART : RRR, systolic murmur ABDOMEN: Some distention, minimal hypogastric tenderness EXTREMITIES : Minimal LE swelling, no LE tenderness, no other conspicuous deformities noted NEUROLOGIC : Coherent, no facial asymmetry, no other gross focality Principal Diagnosis GI bleed: Hematochezia Factor V Leiden mutation Hypokalemia Recent Complicated UTI Chronic diastolic heart failure Hypertension Hyperlipidemia H/O CVA, PVD COPD Uterine Cancer H/O Gastric bypass DM II Discharge Exam See below Discharge Data Allergies Allergy/AdvReac Type Severity Reaction Status Date / Time adhesive Allergy Intermediate BLISTERS Verified 12/01/20 15:55 WITH STERI-STRIPS Iodinated Contrast Media Allergy Intermediate hive Verified 12/01/20 15:55 [Iodinated Contrast- Oral and IV Dye] naproxen Allergy Intermediate SWELLING - Verified 12/01/20 15:55 TOLERATES ESTEVES-[address] HALL ciprofloxacin Allergy Mild RASH Verified 12/01/20 15:55 Quinolones Allergy Mild NEUROLOGIC Verified 12/01/20 15:55 SYMPTOMS Consultations 12/08/20 02:53 ED Decision to Admit Stat 12/08/20 06:37 Consult Case Management - Discharge Planning Routine 12/08/20 09:01 Consult Gastroenterology Routine 12/11/20 09:49 Consult Urology Routine Ordered Studies 12/08/20 03:36 CT abd pelvis wo con Urgent 12/12/20 22:12 US venous doppler LE BI Urgent Current Diagnoses Bacterial infection, unspecified (12/08/20) Melena (12/08/20) Gastrointestinal hemorrhage, unspecified (12/08/20) Obstructive and reflux uropathy, unspecified (12/08/20) Calculus of ureter (12/08/20) Urinary tract infection, site not specified (12/08/20) Weakness (12/08/20) Allergies adhesive Allergy (Intermediate, Verified 12/01/20 15:55) BLISTERS WITH STERI-STRIPS Iodinated Contrast Media [Iodinated Contrast- Oral and IV Dye] Allergy (Intermediate, Verified 12/01/20 15:55) hive naproxen Allergy (Intermediate, Verified 12/01/20 15:55) SWELLING - TOLERATES ESTEVES-[address] HALL ciprofloxacin Allergy (Mild, Verified 12/01/20 15:55) RASH Quinolones Allergy (Mild, Verified 12/01/20 15:55) NEUROLOGIC SYMPTOMS Height/Weight/Isolation Height 5 ft 6 in Weight 85.6 kg Chemistry 12/13/20 12/14/20 06:51 06:47 Sodium 140 141 Potassium 4.1 4.3 Chloride 111 H 113 H Carbon Dioxide 23 24 Anion Gap 6.0 5.0 BUN 26 H 25 H Creatinine 0.92 0.84 Glucose 72 66 L Hospital Course (1) GI bleed: Hematochezia Diarrhea on presentation H/O diverticulosis, internal hemorrhoids CT ABD:Mild bowel wall thickening involving the descending colon, sigmoid colon, and rectum with adjacent fat stranding. Findings are consistent with a nonspecific proctocolitis and favor infectious or inflammatory process. Cholelithiasis. DD: Hemorrhoids, diverticulosis, AVMs, malignancy H/O very poor bowel preparation for colonoscopy previously Needs prolonged outpatient prep prior to colonoscopy, orders are in DC paperwork Negative COVID Screen Stool for C.diff: Negative Monitor CBC another 24-48 hrs Planned for outpatient colonoscopy with in 4 to 6 weeks Had recurrence of bloody bowel movement yesterday Hold Coumadin for now Hemoglobin is stable, no recurrence of bleeding--Plan to discharge today for outpatient colonoscopy Factor V Leiden mutation H/O Recurrent PE/DVT S/P IVC filter placement INR slightly subtherapeutic on presentation Coumadin-on Hold due to recurrence of bleeding Hypokalemia secondary to emesis Replace electrolytes as needed Recent Complicated UTI Urine Cx from 12/02/20: Morganella Ongoing treatment with IV ertapenem from prior admission. Patient to complete 14-day course of IV antibiotics from November 02 as per ID recommendations Last dose of IV Ertapenem on 12/16/20 Appreciate Urology Input Needs follow up Urology upon discharge Chronic diastolic heart failure EF 55 to 59%, TTE 2019 Severe aortic stenosis TAVR contemplated in the future pending cardiac catheterization Continue Lasix Hypertension Hyperlipidemia Continue home meds H/O CVA, PVD as per records Continue statin Resume Coumadin as able COPD At baseline Monitor Uterine Cancer S/P Radiation H/O Gastric bypass Mood disorder Functional disability/deconditioning, recurrent admissions Continue home meds DM II Last Hb A1C:5.10 June 2020 Continue Insulin therapy Monitor BGs DVT Px: SCDs Coumadin--held Code Status Full code DC home Hb up today 2 more days of IV Invanz Disposition Not interested in Rehab placement Family: Mr. Shon Osorio, contact #[phone]. Labs checked, DC today ROS-No Headache, No Visual Changes, No Nausea, No Vomiting, No Fever, No Chills, No Neck Pain or Stiffness, No Chest Pain, No Palpitations, No SOB, No MCLEOD, No Cough, No Sputum, No Wheezing, No Abdominal Pain, No Diarrhea, No Hematemesis, No Hemoptysis, No Unexpected Weight Loss, No Flank pain, No Melena, No Hematochezia, No Frequency, No Urgency, No Burning, No Hematuria, No Rashes, No Diaphoresis. Appetite is Normal Physical Exam Gen-AAO x 3, NAD, Afebrile Head-NCAT, EOMI, PERRLA, Anicteric Sclera, No Posterior Pharyngeal Erythema Neck-Supple, No JVD, No Thyromegaly, No Masses, No LAD, No Bruits Lungs-Clear to Auscultation Bilaterally, No Rales, No Rhonchi, No Wheezing, No Crepitus Chest-No S4, +S1, +S2, No S3, No Murmurs, No Rubs, No Gallops, No Ectopy Abdomen-Soft, Bowel Sounds Present, Non Tender, Non Distended, No Hepatomegaly, No Splenomegaly, No Palpable Masses, No Rebound, No Rigidity, No Guarding Musculoskeletal-Full Range of Motion Bilaterally, No CVAT Extremities-No Cyanosis, No Clubbing, No Edema Nuero-Cranial Nerves II-XII grossly intact, Motor WNL, DTRs WNL, Strength WNL, Non Focal Psych-Normal Mood Total Time Total Time Spent Total Time Spent (In Minutes): 45 min Total Time Includes: Examination of the Patient, Discharge Planning, Medication Reconciliation and Communication With Other Providers Discharge Plan Discharge Items Patient Disposition: Home - Self-Care Reason For Visit: LGIB Discharge Diagnosis: GI bleed: Hematochezia Factor V Leiden mutation Hypokalemia Recent Complicated UTI Chronic diastolic heart failure Hypertension Hyperlipidemia H/O CVA, PVD COPD Uterine Cancer H/O Gastric bypass DM II Condition on Discharge: Good Health Concerns: Rebleeding if Warfarin restarted Activity: Resume your previous activity Lifting: Gradually increase as tolerated Bathing: No limitations Sexual Activity: When tolerated Exercise/Sports: Gradually increase as tolerated Driving/Machine Use: No limitations Weightbearing: Full weightbearing Non-emergency contact: Primary Care Provider and Coat Fitter Call non-emergency contact if: you have any medication questions Follow-up/Referrals: Albert Castellanos DO [Physician] - (Call for appointment) Joy Garcia DO [Physician] - (Call for appointment) Sadi Shea DO [Primary Care Provider] - (Date & Time 12/18/2020 3:00 PM Provider Sadi Shea DO Department General Internal Medicine [facility] ) Diet: Heart Healthy Addtl Attending Provider Instructions: Gastroenterology and Dr Shea will determine when to restart Warfarin Addtl Outside Industrial Sales Representative Provider Instructions: Outpatient Colonoscopy prep with liquid diet x 5 days prior, then 2 day prep with GoLytely to maximize the potential for a good examination; If patient is agreeable then our office will arrange this Pending Studies at Discharge: No Stand-Alone Forms: My [facility], Smoking Cessation Medications and DC Order Prescriptions: Continued metoprolol succinate 25 mg Tablet Extended Release 24 Hr 12.5 mg PO BID RF: 0 Flintstones Complete Tablet,Chewable 1 tab PO QAM RF: 0 calcium carbonate [Tums Extra Strength Smoothies] 300 mg (750 mg) Tablet,Chewable 750 mg PO UD PRN (Reason: Heartburn) RF: 0 omeprazole 20 mg Tablet,Delayed Release (Dr/Ec) 20 mg PO QAM RF: 0 nystatin 100,000 unit/gram powder 1 appln TOP BID PRN (Reason: rash) RF: 0 atorvastatin 40 mg Tablet 40 mg PO PM RF: 0 oxybutynin chloride 5 mg Tablet 5 mg PO BID RF: 0 bupropion HCl [Wellbutrin SR] 200 mg Tablet Sustained-Release 12 Hr 200 mg PO BID RF: 0 furosemide 20 mg tablet 20 mg PO DAILY RF: 0 oxycodone 5 mg tablet 5 mg PO Q4 PRN (Reason: Pain) RF: 0 furosemide 20 mg tablet 20 mg PO 2XWK RF: 0 buspirone 5 mg Tablet 5 mg PO TID RF: 0 ondansetron 4 mg Tablet,Disintegrating 4 mg PO Q8H PRN (Reason: Nausea) RF: 0 allopurinol 100 mg Tablet 100 mg PO BID RF: 0 duloxetine [Cymbalta] 20 mg Capsule,Delayed Release(Dr/Ec) 40 mg PO HS RF: 0 cyanocobalamin (vitamin B-12) 1,000 mcg/mL Kit 1,000 mcg IM UD RF: 0 potassium chloride [K-Tab] 10 mEq tablet extended release 10 meq PO BID RF: 0 Probiotic 3 billion cell Capsule 3,000 mmu cells PO QAM RF: 0 loperamide 2 mg Capsule 2 mg PO Q4H PRN (Reason: Diarrhea) RF: 0 docusate sodium 100 mg Tablet 100 mg PO BID RF: 0 cholecalciferol (vitamin D3) 50 mcg (2,000 unit) Tablet 50 mcg PO DAILY RF: 0 Discontinued warfarin 4 mg Tablet 2 mg PO DAILY RF: 0 Discharge Orders: Discharge Order (Routine); Ordered 12/14/20 Ordered By: Ten Araya Admission Data Admit Date/Time: 12/08/20 12:01 Attending Provider: Ten Araya Admit Provider: Biju Zhao Primary Care Provider: Sadi Shea Other Providers: Biju Zhao ; Joy Garcia ; [facility] ; Albert Castellanos ; [facility]
[2020-12-14] MEDS: oxyCODONE HCL IR 5 MG TAB (IMMEDIATE RELEASE) PO PRN (10:51)
[2020-12-14 14:15] LABS: Hematocrit (blood only) 27.7 % (37-47); Hemoglobin 8.9 g/dL (12.0-16.0); Mean Corpuscular Hemoglobin 28.7 pg (25-34); Mean Corpuscular Volume 89.4 fL (80-100); Mean Platelet Volume 11.1 fL (7.4-10.4); Platelet Count 154 K/uL (130-400); RDW Coefficient of Variation 18.1 % (11.5-14.5); White Blood Count 6.39 K/uL (4.8-10.8)
[2020-12-14 14:33] LABS: Mean Corpuscular Hgb Conc 32.1 g/dL (32-36)
[2020-12-14 15:17] VITALS: BP 115/69; PULSE 74; TEMP 98.1; O2SAT 98
== END 2020-12-14 18:15 | disposition home health service (06) | DRG 378 ==
LOC: ED 00:29 → 2N 00:29 → SUATTDRO 04:53 → 2N 06:13 → SUATTDRO 12:01 → 2N 12-09 06:27

== ENCOUNTER 2021-01-05 11:42 | Inpatient (IN) ==
--- NOTE | 2021-01-05 12:20 | Emergency Department Note ---
Impression & Plan Sepsis, Cystitis, SELWYN (acute kidney injury), Acute dehydration ED Provider Note NAME: RAHEEM POSADAS AGE: 75 SEX: F : 1945 ARRIVES VIA: Ambulance INFORMANT: Patient, ED PROVIDER(S): Asher Torres MD Chief Complaint: Decreased urination HPI: Patient does present with decreased urination has been ongoing since Friday. The patient does have a recent history of having a stent placed by Dr. Castellanos with urology secondary to kidney stones. The patient has complained of bilateral back and flank pain which she states is consistent with her or kidney stones. The patient has not had any fevers or chills chest pains or shortness of breath. Patient has had occasional nausea but without vomiting. Patient was started on Bactrim yesterday for which she did take her prescribed doses but has not taken anything today. The patient has admitted to some increasing lower extremity swelling. The patient states she has had decreased appetite. ROS: See HPI for pertinent positives and negatives. A total of 10 systems were reviewed and otherwise negative. Past medical history: See below Surgical history: See below Social history: See below Physical Exam: GENERAL: Mildly ill in appearance, wearing glasses and a mask. EYE EXAM: Normal conjunctiva. PERRL, no anisocoria and EOM's grossly intact w/o pain. NECK: Supple, no nuchal rigidity, no adenopathy, non-tender. No signs of meningismus. LUNGS: Clear to auscultation. Normal chest wall mechanics. HEART: NSR, no MRG. ABDOMEN: Abdomen soft, non-tender, normo-active bowel sounds, no masses, no rebound or guarding. BACK: No CVA TTP. SKIN: No rashes and no bruising. UPPER EXTREMITIES: Upper extremities are grossly normal. LOWER EXTREMITIES: Grossly normal, 2-3+ bilateral symmetric lower extremity edema, small punched-out wound over the mid left belal approximate 2 x 2 cm. No expanding erythema fluctuance or active drainage. NEURO EXAM: A&O x3, cranial nerves II-XII grossly intact, normal speech, moves all 4 extremities on command w/o issue. Differential diagnoses: Appendicitis, ovarian cyst, ovarian torsion, ectopic , TOA, PID, infections, diverticulitis, UTI, obstruction, mesenteric ischemia, aortic pathology, inflammatory bowel disease, renal colic, PUD, pancreatitis, biliary pathology, hernia, volvulus, constipation, as well as other pathologies. Course: Patient was seen and evaluated the bedside. Full history physical exam was performed. EKG: Indication: Nausea Imaging Studies: Radiology results as stated below per my review in the radiologist's interpretation: XR chest 1V portable CLINICAL HISTORY: SEPSIS COMPARISON STUDY: 10/01/2020 FINDINGS: The cardiac and mediastinal contours are normal. There is no evidence of focal pulmonary consolidation. There is no evidence of failure. No pleural effusions are visualized.[ The right central venous catheter has been removed. There are postsurgical tan nges of a reverse total left shoulder arthroplasty. There is a thoracolumbar scoliosis. IMPRESSION: No active disease in the chest. ACT 112: Negative or not required by law. Electronically signed by: Brett Vila M.D. 01/05/2021 1:40 PM Dictated: 01/05/21 1340 Transcribed: 01/05/21 [address] WITHOUT CONTRAST CT DOSE: 946.02 mGy.cm HISTORY: h/o stones, back pain, decreased urine output, stent TECHNIQUE: Multiaxial CT images of the abdomen and pelvis were performed without contrast. A dose lowering technique was utilized adhering to the principles of ALARA. COMPARISON STUDY: Abdomen and pelvis CT 12/08/2020. FINDINGS: Trace left pleural effusion has improved. Small hiatus hernia is again noted. There is a trace pericardial effusion. The unenhanced liver, gallbladder, spleen, and pancreas unremarkable. Chronic thickening of the adrenal glands also remains unchanged. No pneumoperitoneum. No pneumatosis. There is a right total arthroplasty. Chronic deformity and dislocation within the left hip is again noted. Severe body wall edema which has progressed. There are few punctate left renal calculi, unchanged. There is again noted a duplicated left renal collecting system with the left ureteral stent in the lower pole moiety. There appears to be a punctate stone remaining within the mid left ureter. This is unchanged in position. This is best seen on image 224. The left ureteral stent is in good position. Mild bladder wall thickening with adjacent fat stranding. Bladder is completely decompressed by Ramírez catheter. Small of gas within the bladder lumen is likely due to the catheterization. Prior rectosigmoid anastomosis. A few colonic diverticula. No evidence for acute diverticulitis. Prior ventral hernia repair. The uterus is unremarkable. No evidence for bowel obstruction. An IVC filter is noted. No retroperitoneal lymphadenopathy. The left-sided hydronephrosis has resolved. Mild pericolonic fat stranding at the sigmoid colon is noted. The colonic wall thickening has essentially resolved in the interval. Stable punctate bladder calculi. IMPRESSION: 1. Interval resolution of the left-sided hydronephrosis. The left ureteral stent is unchanged in position. There remains a punctate mid left ureteral stone adjacent to the ureteral stent. 2. Stable left-sided nephrolithiasis. Stable punctate bladder calculi. 3. Near complete resolution of the colitis with only mild pericolonic fat stranding remaining at the mid sigmoid colon. 4. No evidence for bowel obstruction. 5. Severe body wall edema which has progressed. 6. Cholelithiasis. 7. Trace left pleural effusion has also improved. 8. Persistent bladder wall thickening. 9. Additional findings as described above. ACT 112: Negative or not required by law. Electronically signed by: Lane Bridges M.D. 01/05/2021 3:42 PM Dictated: 01/05/21 1525Transcribed: 01/05/21 1525 Cardiac monitoring: An order was placed for continuous cardiac monitoring. The monitor shows a rate of 93 with sinus rhythm. MDM: Patient was seen due to concern for decreased urine output prior history of stones. Patient did have blood work completed along with urinalysis blood and urine cultures lactate IV fluids. The patient did receive her first round of IV fluid to get her chest x-ray completed along with CT abdomen pelvis. The patient was difficult stick and did require an arterial stick for blood work. The patient's blood pressure and heart rate did improve with IV fluids. An additional liter was ordered. Upon reassessment the patient did state that she did feel improved. Chest x-ray is clear. Covid negative. Patient does have a white count of 23. The patient does have SELWYN and likely dehydration. The patient does have a positive troponin but the patient denies any chest pains or shortness of breath likely demand ischemia. Pro-Joseph is 3.6. Patient did have a small left anterior bella wound. This was taken care of with bacitracin and small bandage. And the patient was rolled the patient had no evidence of any sacral decubitus ulcers redness or infectious findings to the skin. Patient CT shows improvement of her left-sided hydronephrosis ureteral stents in place. Near complete resolution of colitis. No bowel obstruction. Patient does have improvement in left pleural effusion and the patient does have persistent bladder wall thickening. Patient's blood pressure had improved while in the department with IV fluids. I did speak with the on-call hospitalist Sophia Beverly PA-C and the patient was admitted under Dr. Lyman with [facility] service. Past Med/Surg History Medical History Aortic stenosis, severe PAULY 0.62-0.66 cm2 per 08/31/2020 echo. Patient seen by [facility] valve clinic 08/14/20 for possible TAVR, workup initiated with repeat echo, but patient subsequently admitted to [facility] again for urologic issues. 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 Per cardiology consult , "Only mild left ventricular dysfunction and suspect stress mediated etiology rather than acute ischemic event. Patient on appropriate beta-sheryl therapy." Apical wall motion abnormality resolved on 08/04/20 ECHO Atrial fibrillation follows with Michael Bui> NO PACER Bleeding hemorrhoids Carotid artery stenosis [place] , 50%, LICA 50-69% by 04/09/19 doppler Chronic diastolic heart failure CKD (chronic kidney disease), stage III Degenerative disc disease Depression Dyslipidemia Factor 5 Leiden mutation, heterozygous recurrent PE/DVT; status post IVC filter placement, on Coumadin Frequent UTI RECENT HOSPITALIZATION GERD (gastroesophageal reflux disease) Cinebar filter in place History of COPD "MILD" History of esophageal disorder esophageal diverticulum History of peripheral neuropathy bilateral feet History of stress incontinence Hx of cancer of uterus diagnosed 03/2019---radiation only Hx of gout Hx of iron deficiency anemia Hypertension Intestinal disorder post op malabsorption Non-ST elevation MA (NSTEMI) In setting of acute illness (urosepsis 2/2 obstructing stone) 06/21/20 On anticoagulant therapy warfarin daily NICOLASA on CPAP Pes planus Post traumatic stress disorder Pulmonary embolism hx of bilateral ~2002 2/2 FFL Sleep apnea CPAP Spinal stenosis Stroke 06/03/2019 after I&D left hip--vision loss in left eye--no neurologist Vision abnormalities r peripheral vision loss( posterior ischemic optic neuropathyleft eye), left side altered vision like looking through a screen door Weakness Wheelchair dependence Surgical History H/O cystoscopy 06/23/20 and 07/20/20 [facility] History of arthroplasty of left hip 2006 @ [facility]--infected after, multiple sx's History of biopsy of bladder benign History of colonoscopy with polypectomy History of incision and drainage 05/2019 of left hip [place] of [place] [facility] of left shoulder replacement History of right hip replacement 2005 @ [facility] History of tonsillectomy and adenoidectomy History of tooth extraction Hx of gastric bypass 2016 Hx of tubal ligation Hx of umbilical hernia repair mesh inserted S/P colon resection 1984 @ [facility] complete sigmoid removed d/t diverticular disease Family History Mother , age 91 Heart disease Family hx colonic polyps Father , age 42 Factor V deficiency Myocardial infarction Sister No problems noted. Sister Endometrial cancer Brother Family hx colonic polyps Brother , age 50 Meningitis Brother No problems noted. Brother No problems noted. Son No problems noted. Son No problems noted. Son Colon abnormality Son , in his 30 `s , " girl friend over dosed the patients son " Drug overdose Grandfather (Paternal) Family history of diabetes mellitus Family hx of colon cancer Other No family history of adverse response to anesthesia Social History Smoking Status: Former smoker Tobacco Type: Cigarettes Age Started Using Tobacco: 22; packs per day: 0.5; Years Smoked: 25; Cigarettes Per Day: 10; Smoking End Date: 11/02/1999; Second Hand Exposure: No; Do You Dip or Chew Tobacco: No; Hx Alcohol Use: No Hx Substance Use: No Preferred Language: Kinyarwanda Communication Ability: Effective Visual Impairment: No Limitations Hearing Ability: Normal Patient Account Liaison Required: No Beliefs That Will Affect Care: None marital status: / Current Living Situation: Family Current Living Situation Comment: son current occupational status: retired 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 Other Information That Helps Us Care for You: No Feels Safe at Home: Yes Safety Concerns: Feels Safe At This Time Assistive Devices: BiPap, Glasses and Wheelchair Allergies Allergies Allergy/AdvReac Type Severity Reaction Status Date / Time adhesive Allergy Intermediate BLISTERS Verified 01/05/21 15:18 WITH STERI-STRIPS Iodinated Contrast Media Allergy Intermediate hive Verified 01/05/21 15:18 [Iodinated Contrast- Oral and IV Dye] naproxen Allergy Intermediate SWELLING - Verified 01/05/21 15:18 TOLERATES ESTEVES-[address] HALL ciprofloxacin Allergy Mild RASH Verified 01/05/21 15:18 Quinolones Allergy Mild NEUROLOGIC Verified 01/05/21 15:18 SYMPTOMS Home Meds Home Medications Medication Instructions Recorded Confirmed allopurinol 100 mg PO BID 06/23/19 01/05/21 buspirone 5 mg PO TID 06/23/19 01/05/21 cyanocobalamin (vitamin B-12) 1,000 mcg IM .Q3M 06/23/19 01/05/21 duloxetine [Cymbalta] 40 mg PO HS 06/23/19 01/05/21 ondansetron 4 mg PO Q8H PRN 06/23/19 01/05/21 Flintstones Complete 1 tab PO QAM 08/27/19 01/05/21 atorvastatin 40 mg PO PM 12/31/19 01/05/21 bupropion HCl [Wellbutrin SR] 200 mg PO BID 12/31/19 01/05/21 calcium carbonate [Tums Extra 750 mg PO .PRN PRN 12/31/19 01/05/21 Strength Smoothies] nystatin 1 appln TOP BID PRN 12/31/19 01/05/21 omeprazole 20 mg PO QAM 12/31/19 01/05/21 oxybutynin chloride 5 mg PO BID 12/31/19 01/05/21 Probiotic 3,000 mmu cells PO QAM 06/21/20 01/05/21 potassium chloride [K-Tab] 10 meq PO BID 06/21/20 01/05/21 metoprolol succinate 12.5 mg PO BID 09/25/20 01/05/21 cholecalciferol (vitamin D3) 50 mcg PO DAILY 12/01/20 01/05/21 docusate sodium 100 mg PO BID 12/01/20 01/05/21 loperamide 2 mg PO Q4H PRN 12/01/20 01/05/21 furosemide 60 mg PO .4XW 12/08/20 01/05/21 furosemide 80 mg PO .3XW 12/08/20 01/05/21 oxycodone 5 mg PO Q4 PRN 12/08/20 01/05/21 Previous Rx's Medication Instructions Recorded methenamine hippurate 1 gram tablet 1 g PO BID #60 tab 12/22/20 sulfamethoxazole 800 1 tab PO BID 7 Days #14 tab 01/02/21 mg-trimethoprim 160 mg tablet Results & Data (ED) Vital Signs Vital Signs - 24 hr 01/05/21 11:45 01/05/21 12:01 01/05/21 13:16 Temperature 36.5 C 36.5 C Temperature Source Oral Oral Pulse Rate 102 H Pulse Rate [Left Apical] 102 H 92 H Pulse Rhythm Regular Pulse Rhythm [Left Apical] Regular Pulse Strength Normal Pulse Strength [Left Apical] Normal Respiratory Rate 20 18 20 Respiratory Effort / Characteristics Non-Labored Spontaneous Non-Labored Spontaneous Respiratory Depth Normal Normal Respiratory Pattern Regular Regular Blood Pressure 81/61 L Blood Pressure [Right Arm] 78/60 L 95/69 L Blood Pressure Mean 67 Blood Pressure Mean [Right Arm] 66 77 Blood Pressure Position Lying Blood Pressure Position [Right Arm] Lying Pulse Oximetry 100 100 100 Oxygen Delivery Method Room Air Room Air Room Air Sepsis Recent Fever Within 48 Hours No Sepsis New/Unexplained Change in Mental Status No Sepsis Action Taken by Nursing Physician Notified 01/05/21 13:31 01/05/21 14:50 01/05/21 16:09 Temperature Temperature Source Pulse Rate Pulse Rate [Left Apical] 94 H 93 H 86 Pulse Rhythm Pulse Rhythm [Left Apical] Pulse Strength Pulse Strength [Left Apical] Respiratory Rate 18 20 14 Respiratory Effort / Characteristics Non-Labored Respiratory Depth Normal Respiratory Pattern Blood Pressure Blood Pressure [Right Arm] 111/63 101/68 113/65 Blood Pressure Mean Blood Pressure Mean [Right Arm] 79 79 81 Blood Pressure Position Blood Pressure Position [Right Arm] Pulse Oximetry 100 100 100 Oxygen Delivery Method Room Air Room Air Room Air Sepsis Recent Fever Within 48 Hours Sepsis New/Unexplained Change in Mental Status Sepsis Action Taken by Nursing 01/05/21 17:00 Temperature Temperature Source Pulse Rate Pulse Rate [Left Apical] 88 Pulse Rhythm Pulse Rhythm [Left Apical] Pulse Strength Pulse Strength [Left Apical] Respiratory Rate 16 Respiratory Effort / Characteristics Non-Labored Respiratory Depth Normal Respiratory Pattern Blood Pressure Blood Pressure [Right Arm] 112/67 Blood Pressure Mean Blood Pressure Mean [Right Arm] 82 Blood Pressure Position Blood Pressure Position [Right Arm] Pulse Oximetry 100 Oxygen Delivery Method Room Air Sepsis Recent Fever Within 48 Hours Sepsis New/Unexplained Change in Mental Status Sepsis Action Taken by Assisted Medications Current Medication List: was personally reviewed by me Laboratory Data Attestation: I reviewed the patient's lab results. Result diagrams: 01/05/21 15:42 01/05/21 15:42 Lab Results 01/05/21 01/05/21 01/05/21 Range/Units 13:25 13:25 15:42 WBC 23.92 H (4.8-10.8) K/uL RBC 4.07 L (4.2-5.4) M/uL Hgb 11.4 L (12.0-16.0) g/dL Hct 35.3 L (37-47) % MCV 86.7 (80-100) fL MCH 28.0 (25-34) pg MCHC 32.3 (32-36) g/dL RDW Std Deviation 58.7 H (36.4-46.3) fL RDW Coeff of Karla 18.7 H (11.5-14.5) % Plt Count 166 (130-400) K/uL MPV 10.5 H (7.4-10.4) fL Immature Gran % (Auto) 0.4 % Neut % (Auto) 94.7 % Lymph % (Auto) 3.1 % Tyler % (Auto) 1.7 % Eos % (Auto) 0.0 % Baso % (Auto) 0.1 % Neut # (Auto) 22.65 H (1.4-6.5) K/uL Lymph # (Auto) 0.75 L (1.2-3.4) K/uL Tyler # (Auto) 0.41 (0.11-0.59) K/uL Eos # (Auto) 0.00 (0-0.5) K/uL Baso # (Auto) 0.02 (0-0.2) K/uL Immature Gran # (Auto) 0.09 H (0.00-0.02) K/uL Polychromasia 1+ Poikilocytosis Present Sodium (136-145) mmol/L Potassium (3.5-5.1) mmol/L Chloride (98-107) mmol/L Carbon Dioxide (21-32) mmol/L Anion Gap (3-11) BUN (7-18) mg/dl Creatinine (0.6-1.2) mg/dl Est Cr Clr Drug Dosing ml/min Est GFR ( Amer) Est GFR (Non-Af Amer) BUN/Creatinine Ratio (10-20) Glucose (70-99) mg/dl Calcium (8.5-10.1) mg/dl Magnesium (1.8-2.4) mg/dl Total Bilirubin (0.2-1) mg/dl AST (15-37) U/L ALT (12-78) U/L Alkaline Phosphatase (45-117) U/L Troponin I (0-0.045) ng/ml Total Protein (6.4-8.2) gm/dl Albumin (3.4-5.0) gm/dl Globulin (2.5-4.0) gm/dl Albumin/Globulin Ratio (0.9-2) Procalcitonin (0-0.5) ng/ml COVID-19 Eval [facility] SARS-[facility]-2, RNA, NAAT NEGATIVE (NEGATIVE) 01/05/21 01/05/21 Range/Units 15:42 15:42 WBC (4.8-10.8) K/uL RBC (4.2-5.4) M/uL Hgb (12.0-16.0) g/dL Hct (37-47) % MCV (80-100) fL MCH (25-34) pg MCHC (32-36) g/dL RDW Std Deviation (36.4-46.3) fL RDW Coeff of Karla (11.5-14.5) % Plt Count (130-400) K/uL MPV (7.4-10.4) fL Immature Gran % (Auto) % Neut % (Auto) % Lymph % (Auto) % Tyler % (Auto) % Eos % (Auto) % Baso % (Auto) % Neut # (Auto) (1.4-6.5) K/uL Lymph # (Auto) (1.2-3.4) K/uL Tyler # (Auto) (0.11-0.59) K/uL Eos # (Auto) (0-0.5) K/uL Baso # (Auto) (0-0.2) K/uL Immature Gran # (Auto) (0.00-0.02) K/uL Polychromasia Poikilocytosis Sodium 133 L (136-145) mmol/L Potassium 4.1 (3.5-5.1) mmol/L Chloride 100 (98-107) mmol/L Carbon Dioxide 20 L (21-32) mmol/L Anion Gap 12.0 H (3-11) BUN 53 H (7-18) mg/dl Creatinine 2.41 H (0.6-1.2) mg/dl Est Cr Clr Drug Dosing 23.7 ml/min Est GFR ( Amer) 22.2 Est GFR (Non-Af Amer) 19.1 BUN/Creatinine Ratio 21.9 H (10-20) Glucose 71 (70-99) mg/dl Calcium 7.8 L (8.5-10.1) mg/dl Magnesium 1.9 (1.8-2.4) mg/dl Total Bilirubin 0.3 (0.2-1) mg/dl AST 29 (15-37) U/L ALT 25 (12-78) U/L Alkaline Phosphatase 162 H (45-117) U/L Troponin I 0.214 H* (0-0.045) ng/ml Total Protein 5.0 L (6.4-8.2) gm/dl Albumin 1.8 L (3.4-5.0) gm/dl Globulin 3.2 (2.5-4.0) gm/dl Albumin/Globulin Ratio 0.6 L (0.9-2) Procalcitonin 3.60 H (0-0.5) ng/ml COVID-19 Eval Order SARS-CoV-2, RNA, NAAT (NEGATIVE) Administered Medications Dextrose (Dextrose 50% 50 Ml Syringe) 25 - 50 ml IV UD PRN; Protocol PRN Reason: Hypoglycemia Protocol Stop: 02/04/21 18:48 Last Admin: 01/05/21 19:19 Dose: 50 ml Documented by: [id number] Discontinued Medications Sodium Chloride (Nss 1000ml) 1,000 mls @ 999 mls/hr IV .Q1H1M NAY Stop: 01/05/21 14:00 Last Infusion: 01/05/21 14:20 Dose: 0 mls/hr Documented by: [id number] Admin: 01/05/21 13:20 Dose: 999 mls/hr Documented by: [id number] Meropenem 500 mg/ Syringe 10 mls @ 2 mls/min IV Q8H NAY; Protocol Stop: 01/15/21 13:14 Last Admin: 01/05/21 15:39 Dose: 2 mls/min Documented by: [id number] Sodium Chloride (Nss 1000ml) 1,000 mls @ 999 mls/hr IV .Q1H1M ONE Stop: 01/05/21 16:23 Last Infusion: 01/05/21 16:40 Dose: 0 mls/hr Documented by: [id number] Admin: 01/05/21 15:39 Dose: 999 mls/hr Documented by: [id number] Sodium Chloride (Nss 1000ml) 500 mls @ 999 mls/hr IV .Q31M ONE Stop: 01/05/21 18:34 Last Infusion: 01/05/21 19:53 Dose: 0 mls/hr Documented by: [id number] Admin: 01/05/21 19:22 Dose: 999 mls/hr Documented by: [id number] Discharge Plan Visit Data Chief Complaint: Urinary Symptoms ED Provider: Asher Torres Discharge Problem: Sepsis, Cystitis, SELWYN (acute kidney injury), Acute dehydration Patient Disposition: Admitted As Inpatient Discharge Instructions Interventions: ED Discharge Assessment Last Done: 01/05/21 18:24 Discharge Problem: Sepsis Qualifiers: Sepsis type: sepsis due to unspecified organism Sepsis acute organ dysfunction status: with acute organ dysfunction Severe sepsis acute organ dysfunction type: unspecified Severe sepsis shock status: unspecified Qualified Code(s): A41.9 - Sepsis, unspecified organism
[2021-01-05] MEDS ORDERED: SODIUM CHLORIDE 0.9% 1000ML 1,000 ML IV SCH ×2 (13:00→18:49)
[2021-01-05] MEDS ORDERED: MEROPENEM CONSULT ACITVE PRN ×2 (13:10→18:55)
[2021-01-05] MEDS ORDERED: MEROPENEM 500 MG in SYRINGE 0 ML IV SCH (13:15)
--- NOTE | 2021-01-05 13:42 | XRay Report ---
XR chest 1V portable CLINICAL HISTORY: SEPSIS COMPARISON STUDY: 10/01/2020 FINDINGS: The cardiac and mediastinal contours are normal. There is no evidence of focal pulmonary co nsolidation. There is no evidence of failure. No pleural effusions are visualized.[ The right central venous catheter has been removed. There are postsurgical changes of a reverse total left shoulder arthroplasty. There is a thoracolumbar scoliosis. IMPRESSION: No active disease in the chest. ACT 112: Negative or not required by law. Electronically signed by: Brett Vila M.D. 01/05/2021 1:40 PM
--- NOTE | 2021-01-05 14:15 | Electrocardiogram Report ---
Test Reason : Blood Pressure : / mmHG Vent. Rate : 097 BPM Atrial Rate : 097 BPM P-R Int : 150 ms QRS Dur : 092 ms QT Int : 372 ms P-R-T Axes : 080 018 118 degrees QTc Int : 472 ms Normal sinus rhythm Nonspecific ST and T wave abnormality Prolonged QT Abnormal ECG When compared with ECG of 08-DEC-2020 00:37, No significant change was found Confirmed by Roberto Russo ([id number]) on 01/05/2021 2:14:41 PM Referred By: REFERRED SELF Confirmed By:Elliot Russo
[2021-01-05] MEDS ORDERED: SODIUM CHLORIDE 0.9% 1000ML 1,000 ML IV ONE (15:23)
--- NOTE | 2021-01-05 15:44 | CT Scan Report ---
ABDOMEN AND PELVIS CT WITHOUT CONTRAST CT DOSE: 946.02 mGy.cm HISTORY: h/o stones, back pain, decreased urine output, stent TECHNIQUE: Multiaxial CT images of the abdomen and pelvis were performed without contrast. A dose lo wering technique was utilized adhering to the principles of ALARA. COMPARISON STUDY: Abdomen and pelvis CT 12/08/2020. FINDINGS: Trace left pleural effusion has improved. Small hiatus hernia is again noted. There is a tr jose eduardo pericardial effusion. The unenhanced liver, gallbladder, spleen, and pancreas unremarkable. Chron ic thickening of the adrenal glands also remains unchanged. No pneumoperitoneum. No pneumatosis. Ther e is a right total arthroplasty. Chronic deformity and dislocation within the left hip is again noted . Severe body wall edema which has progressed. There are few punctate left renal calculi, unchanged. 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 There appears to be a punctate stone remaining within the mid left ureter. This is u nchanged in position. This is best seen on image 224. The left ureteral stent is in good position. Mi ld bladder wall thickening with adjacent fat stranding. Bladder is completely decompressed by Ramírez c atheter. Small of gas within the bladder lumen is likely due to the catheterization. Prior rectosigmo id anastomosis. A few colonic diverticula. No evidence for acute diverticulitis. Prior ventral hernia repair. The uterus is unremarkable. No evidence for bowel obstruction. An IVC filter is noted. No re troperitoneal lymphadenopathy. The left-sided hydronephrosis has resolved. Mild pericolonic fat stran ding at the sigmoid colon is noted. The colonic wall thickening has essentially resolved in the inter dante. Stable punctate bladder calculi. IMPRESSION: 1. Interval resolution of the left-sided hydronephrosis. The left ureteral stent is unchanged in posi tion. There remains a punctate mid left ureteral stone adjacent to the ureteral stent. 2. Stable left-sided nephrolithiasis. Stable punctate bladder calculi. 3. Near complete resolution of the colitis with only mild pericolonic fat stranding remaining at the mid sigmoid colon. 4. No evidence for bowel obstruction. 5. Severe body wall edema which has progressed. 6. Cholelithiasis. 7. Trace left pleural effusion has also improved. 8. Persistent bladder wall thickening. 9. Additional findings as described above. ACT 112: Negative or not required by law. Electronically signed by: Lane Bridges M.D. 01/05/2021 3:42 PM
[2021-01-05 15:58] LABS: Hematocrit (blood only) 35.3 % (37-47); Hemoglobin 11.4 g/dL (12.0-16.0); Mean Corpuscular Hgb Conc 32.3 g/dL (32-36); Mean Corpuscular Volume 86.7 fL (80-100); Mean Platelet Volume 10.5 fL (7.4-10.4); Platelet Count 166 K/uL (130-400); RDW Coefficient of Variation 18.7 % (11.5-14.5); RDW Standard Deviation 58.7 fL (36.4-46.3); Red Blood Count 4.07 M/uL (4.2-5.4); White Blood Count 23.92 K/uL (4.8-10.8)
[2021-01-05 16:10] LABS: Albumin Level 1.8 gm/dl (3.4-5.0); BUN Creatinine Ratio 21.9 (10-20); Calcium 7.8 mg/dl (8.5-10.1); Creatinine Clr Calc Pharmacy 23.7 ml/min; Est GFR (African American) 22.2; Est GFR (Non-African American) 19.1; Magnesium 1.9 mg/dl (1.8-2.4); Potassium 4.1 mmol/L (3.5-5.1)
[2021-01-05 16:20] LABS: Basophils # (auto) 0.02 K/uL (0-0.2); Basophils % (auto) 0.1 %; Immature Granulocytes # (auto) 0.09 K/uL (0.00-0.02); Immature Granulocytes % (auto) 0.4 %; Lymphocytes # (auto) 0.75 K/uL (1.2-3.4); Lymphocytes % (auto) 3.1 %; Monocytes # (auto) 0.41 K/uL (0.11-0.59); Monocytes % (auto) 1.7 %; Neutrophils # (auto) 22.65 K/uL (1.4-6.5); Neutrophils % (auto) 94.7 %; Poikilocytosis Present; Polychromasia 1+
[2021-01-05 16:25] LABS: Albumin Globulin Ratio 0.6 (0.9-2); Bilirubin,Total 0.3 mg/dl (0.2-1); Globulin 3.2 gm/dl (2.5-4.0); Troponin I 0.214 ng/ml (0-0.045)
[2021-01-05] MEDS ORDERED: SODIUM CHLORIDE 0.9% 1000ML 500 ML IV ONE (18:04)
--- NOTE | 2021-01-05 18:16 | History & Physical Report ---
Date of Service January 05, 2021 Assessment & Plan (1) Sepsis: Pt s 75 y/o F with PMH DM II, chronic diastolic heart failure, aortic stenosis, CKD III, HTN, CVA, PVD, COPD, uterine cancer s/p radiation, gastric bypass, mood disorder, factor V Leiden mutation, colitis, recurrent UTI demarco luciano to obstructive uropathy presented to ER with complaint of nausea and generalized weakness. left ureteral stent placement by Dr. Castellanos on 12/02/2020. 12/02/20 Urine culture positive for Morganella & was treated with ertapenem. Has Ramírez catheter in place. Outpatient urine culture 12/29/2020 noted in epic positive for Klebsiella. Urology had placed patient on Bactrim, patient reports took several doses Probable urosepsis. Patient afebrile, p: 102, RR: 20, BP 81/61, 100% on room air. UA pending. WBC: 23, lactic acid pending, procalcitonin: 3.6. Negative COVID- 19. Chest x-ray without acute findings. CT abdomen pelvis: Interval resolution of the left-sided hydronephrosis. The left ureteral stent is unchanged in position. There remains a punctate mid left ureteral stone adjacent to the ureteral stent. Near complete resolution of the colitis with only mild pericolonic fat stranding remaining at the mid sigmoid colon. Urine culture, blood cultures pending In ER given 2 L NSS with improvement of BP up to 113/65 and pulse down to 86. Was started on meropenem Admit telemetry Continue meropenem IV fluids Lactate pending (patient difficult stick and was not obtained initially), follow lactate Will hold methenamine hippurate for now ID consult CBC, BMP in a.m. SELWYN on CKD III BUN: 33, Cr: 2.4. Baseline Cr:~1. Patient clinically dehydrated. Poor urinary output at home reported past 4 hours. Had recent increase of Lasix. Recently started on Bactrim IVF Hold Lasix for now Hold Bactrim Monitor renal functions, avoid nephrotoxic agents when possible Consider nephrology consult if no improvement Recent colitis/hematochezia Recent admission patient with hematochezia, colitis she was treated with antibiotics. Patient reports 5 episodes of loose BMs yesterday. CT abdomen pelvis shows near complete resolution of colitis In past patient with poor bowel prep for colonoscopies. Outpatient colonoscopy in the future planned Monitor Obtain C. difficile/stool cultures if recurrent diarrhea Continue probiotics Elevated troponin Denies chest pain, shortness of breath. EKG with nonspecific ST changes, no significant change from prior. Troponin: 0.2 Trend troponin repeat EKG in a.m. Factor V Leiden mutation/H/O Recurrent PE/DVT S/P IVC filter placement Off Coumadin secondary to recurrent hematochezia DM II Last Hb A1C: 4.6 in 12/2020 Monitor BSG's NovoLog sliding scale protocol Chronic diastolic heart failure EF 55 to 59%, TTE 2019 Holding Lasix currently, monitor I's and O's Severe aortic stenosis TAVR contemplated in the future pending cardiac catheterization Hypertension Continue metoprolol with holding parameters H/O CVA, PVD Continue statin Uterine Cancer S/P Radiation Mood disorder Continue bupropion, buspirone, Cymbalta Generalized weakness, deconditioning Ongoing for months. Patient with history recurrent hospitalizations PT/OT eval DVT Prophylaxis -SCDs for now Conditional Code as per discussion with pt. Does not want intubated or mechanical ventilation. Wants CPR, medications Follows with Dr Shea for routine care Pt was seen and care coordinated with Dr Lyman. See addendum History of Present Illness Chief Complaint: nausea, weakness Primary Care Provider: Sadi Shea, DO Pt s 75 y/o F with PMH DM II, chronic diastolic heart failure, aortic stenosis, CKD III, HTN, CVA, PVD, COPD, uterine cancer s/p radiation, gastric bypass, mood disorder, factor V Leiden mutation, colitis, recurrent UTI secondary to obstructive uropathy presented to ER with complaint of nausea and generalized weakness. Patient with history of recent UTI secondary to ureter stone obstruction. Had left ureteral stent placement by Dr. Castellanos on 12/02/2020. Urine culture positive for Morganella was treated with ertapenem. Recent admission 12/08/2020 for GI bleed/colitis. Patient was discharged home. She has been following outpatient neurology. She has Ramírez catheter in place. Patient had outpatient urine culture 12/29/2020 noted in epic positive for Klebsiella. Urology had placed patient on Bactrim. Patient states took several doses. She reports past 2 days with nausea. She vomited a couple of times. Denies any vomiting today. Patient states yesterday had 5 episodes diarrhea. She reports her stools are always dark/black in coloration. Also complaining of intermittent abdominal cramping x2 days and low back pain. She reports bilateral leg swelling x1 week. Her Lasix was increased outpatient without improvement of leg swelling. Patient states has had decreased appetite and has had poor oral intake. She reports had poor urine output in Ramírez bag the last day. She has been taking her temperatures at home and has not had any noted fevers. Patient reports has been weak for months and has not been able to ambulate at home. Denies any falls. Denies chills, diaphoresis, hematemesis, hematochezia HAYS, dizziness, syncope, vision changes, neck pain, CP, SOB, orthopnea, palpitations, cough, sore throat, choking, otalgia, rhinorrhea, paresthesias, extremity erythema or cyanosis, rashes, hematuria. Allergies Allergy/AdvReac Type Severity Reaction Status Date / Time adhesive Allergy Intermediate BLISTERS Verified 01/05/21 15:18 WITH STERI-STRIPS Iodinated Contrast Media Allergy Intermediate hive Verified 01/05/21 15:18 [Iodinated Contrast- Oral and IV Dye] naproxen Allergy Intermediate SWELLING - Verified 01/05/21 15:18 TOLERATES ESTEVES-[address] HALL ciprofloxacin Allergy Mild RASH Verified 01/05/21 15:18 Quinolones Allergy Mild NEUROLOGIC Verified 01/05/21 15:18 SYMPTOMS Home Medications Medication Instructions Recorded Confirmed Type allopurinol 100 mg PO BID 06/23/19 01/05/21 History buspirone 5 mg PO TID 06/23/19 01/05/21 History cyanocobalamin (vitamin B-12) 1,000 mcg IM .Q3M 06/23/19 01/05/21 History duloxetine [Cymbalta] 40 mg PO HS 06/23/19 01/05/21 History ondansetron 4 mg PO Q8H PRN 06/23/19 01/05/21 History Flintstones Complete 1 tab PO QAM 08/27/19 01/05/21 History atorvastatin 40 mg PO PM 12/31/19 01/05/21 History bupropion HCl [Wellbutrin SR] 200 mg PO BID 12/31/19 01/05/21 History calcium carbonate [Tums Extra 750 mg PO .PRN PRN 12/31/19 01/05/21 History Strength Smoothies] nystatin 1 appln TOP BID PRN 12/31/19 01/05/21 History omeprazole 20 mg PO QAM 12/31/19 01/05/21 History oxybutynin chloride 5 mg PO BID 12/31/19 01/05/21 History Probiotic 3,000 mmu cells PO QAM 06/21/20 01/05/21 History potassium chloride [K-Tab] 10 meq PO BID 06/21/20 01/05/21 History metoprolol succinate 12.5 mg PO BID 09/25/20 01/05/21 History cholecalciferol (vitamin D3) 50 mcg PO DAILY 12/01/20 01/05/21 History docusate sodium 100 mg PO BID 12/01/20 01/05/21 History loperamide 2 mg PO Q4H PRN 12/01/20 01/05/21 History furosemide 60 mg PO .4XW 12/08/20 01/05/21 History furosemide 80 mg PO .3XW 12/08/20 01/05/21 History oxycodone 5 mg PO Q4 PRN 12/08/20 01/05/21 History methenamine hippurate 1 gram tablet 1 g PO BID #60 tab 12/22/20 01/05/21 Rx sulfamethoxazole 800 1 tab PO BID 7 Days #14 tab 01/02/21 01/05/21 Rx mg-trimethoprim 160 mg tablet Past Med/Surg History Medical History Aortic stenosis, severe PAULY 0.62-0.66 cm2 per 08/31/2020 echo. Patient seen by [facility] valve clinic 08/14/20 for possible TAVR, workup initiated with repeat echo, but patient subsequently admitted to [facility] again for urologic issues. 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 Per cardiology consult , "Only mild left ventricular dysfunction and suspect stress mediated etiology rather than acute ischemic event. Patient on appropriate beta-sheryl therapy." Apical wall motion abnormality resolved on 08/04/20 ECHO Atrial fibrillation follows with Michael Bui> NO PACER Bleeding hemorrhoids Carotid artery stenosis [place] , 50%, LICA 50-69% by 04/09/19 doppler Chronic diastolic heart failure CKD (chronic kidney disease), stage III Degenerative disc disease Depression Dyslipidemia Factor 5 Leiden mutation, heterozygous recurrent PE/DVT; status post IVC filter placement, on Coumadin Frequent UTI RECENT HOSPITALIZATION GERD (gastroesophageal reflux disease) [place] filter in place History of COPD "MILD" History of esophageal disorder esophageal diverticulum History of peripheral neuropathy bilateral feet History of stress incontinence Hx of cancer of uterus diagnosed 03/2019---radiation only Hx of gout Hx of iron deficiency anemia Hypertension Intestinal disorder post op malabsorption Non-ST elevation HI (NSTEMI) In setting of acute illness (urosepsis 2/2 obstructing stone) 06/21/20 On anticoagulant therapy warfarin daily NICOLASA on CPAP Pes planus Post traumatic stress disorder Pulmonary embolism hx of bilateral ~2003 12/12 FFL Sleep apnea CPAP Spinal stenosis Stroke 06/03/2019 after I&D left hip--vision loss in left eye--no neurologist Vision abnormalities r peripheral vision loss( posterior ischemic optic neuropathyleft eye), left side altered vision like looking through a screen door Weakness Wheelchair dependence Surgical History H/O cystoscopy 06/23/20 and 07/20/20 [facility] History of arthroplasty of left hip 2006 @ [facility]--infected after, multiple sx's History of biopsy of bladder benign History of colonoscopy with polypectomy History of incision and drainage 05/2019 of left hip History of left hip replacement 03/[address] [facility] [place] History of left shoulder replacement History of right hip replacement 2005 @ [facility] History of tonsillectomy and adenoidectomy History of tooth extraction Hx of gastric bypass 2016 Hx of tubal ligation Hx of umbilical hernia repair mesh inserted S/P colon resection 1984 @ [facility] complete sigmoid removed d/t diverticular disease Family History Mother , age 91 Heart disease Family hx colonic polyps Father , age 42 Factor V deficiency Myocardial infarction Sister No problems noted. Sister Endometrial cancer Brother Family hx colonic polyps Brother , age 50 Meningitis Brother No problems noted. Brother No problems noted. Son No problems noted. Son No problems noted. Son Colon abnormality Son , in his 30 `s , " girl friend over dosed the patients son " Drug overdose Grandfather (Paternal) Family history of diabetes mellitus Family hx of colon cancer Other No family history of adverse response to anesthesia Social History Smoking Status: Former smoker Tobacco Type: Cigarettes Age Started Using Tobacco: 22; packs per day: 0.5; Years Smoked: 25; Cigarettes Per Day: 10; Smoking End Date: 11/02/1999; Second Hand Exposure: No; Do You Dip or Chew Tobacco: No; Hx Alcohol Use: No Hx Substance Use: No Preferred Language: Irish Communication Ability: Effective Visual Impairment: No Limitations Hearing Ability: Normal Property Consultant Required: No Beliefs That Will Affect Care: None marital status: / Current Living Situation: Family Current Living Situation Comment: son current occupational status: retired 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 Other Information That Helps Us Care for You: No Feels Safe at Home: Yes Safety Concerns: Feels Safe At This Time Assistive Devices: BiPap, Glasses and Wheelchair Review of Systems Review of Systems: All systems reviewed & are unremarkable except as noted in HPI & below Physical Exam Physical Exam: General: no acute distress, chronic ill appearing, obese Head: normocephalic, atraumatic Eyes: PERRL, EOM's intact, conjunctiva non-injected, anicteric ENT: normal inspection external ears, nose, mucous membranes dry Neck: supple, trachea midline Lungs: clear, no respiratory distress, no wheezing/rhonchi/rales CV: RRR, +systolic murmur, no JVD, 3+ pitting edema Abd: protuberant, normal BS, soft, mild tenderness to palpation RLQ, LLQ; no CVA tenderness to percussion Ext: no cyanosis or erythema, no calf tenderness Neuro: A&O x 3, no focal deficits noted, normal affect Skin: warm, dry Results & Data Results & Data ([facility]) Vital Signs (Past 12 Hours) Vital Signs Temp Pulse Pulse Resp BP BP Pulse Ox 01/05/21 17:45 86 14 109/57 L 100 01/05/21 17:00 88 16 112/67 100 01/05/21 16:09 86 14 113/65 100 01/05/21 14:50 93 H 20 101/68 100 01/05/21 13:31 94 H 18 111/63 100 01/05/21 13:16 92 H 20 95/69 L 100 01/05/21 12:01 36.5 C 102 H 18 78/60 L 100 01/05/21 11:45 36.5 C 102 H 20 81/61 L 100 Laboratory Results Short CBC 01/05/21 01/05/21 Range/Units 15:42 15:42 WBC 23.92 H (4.8-10.8) K/uL Hgb 11.4 L (12.0-16.0) g/dL Hct 35.3 L (37-47) % Plt Count 166 (130-400) K/uL Creatinine 2.41 H (0.6-1.2) mg/dl Est GFR (Non-Af Amer) 19.1 BMP 01/05/21 15:42 Sodium 133 L Potassium 4.1 Chloride 100 Carbon Dioxide 20 L BUN 53 H Creatinine 2.41 H Glucose 71 Calcium 7.8 L Cardiac Enzymes 01/05/21 Range/Units 15:42 Troponin I 0.214 H* (0-0.045) ng/ml Liver Function 01/05/21 Range/Units 15:42 Total Bilirubin 0.3 (0.2-1) mg/dl AST 29 (15-37) U/L ALT 25 (12-78) U/L Alkaline Phosphatase 162 H (45-117) U/L Albumin 1.8 L (3.4-5.0) gm/dl Diagnostic Findings CT ABD/PELVIS: IMPRESSION: 1. Interval resolution of the left-sided hydronephrosis. The left ureteral stent is unchanged in position. There remains a punctate mid left ureteral stone adjacent to the ureteral stent. 2. Stable left-sided nephrolithiasis. Stable punctate bladder calculi. 3. Near complete resolution of the colitis with only mild pericolonic fat stranding remaining at the mid sigmoid colon. 4. No evidence for bowel obstruction. 5. Severe body wall edema which has progressed. 6. Cholelithiasis. 7. Trace left pleural effusion has also improved. 8. Persistent bladder wall thickening. 9. Additional findings as described above. CXR: IMPRESSION: No active disease in the chest. ECG Additional Comments: Normal sinus rhythm Nonspecific ST and T wave abnormality Prolonged QT Abnormal ECG When compared with ECG of 08-DEC-2020 00:37, No significant change was found Confirmed by Roberto Russo ([id number]) on 01/05/2021 2:14:41 PM Code Status & VTE Plan VTE Prophylaxis Plan VTE Prophylaxis will be ordered: Yes Supervising Physician Co-Signing Physician Notes Attending addendum: The patient was seen and examined in telemetry unit She is a 75-year-old female with significant past medical history of chronic diastolic heart failure, aortic stenosis, CKD, hypertension, history of CVA, PVD, COPD, uterine cancer status radiation gastric bypass, factor V Leiden mutation and also UTI secondary to obstructive uropathy status post stent placement was brought into emergency room with weakness and nausea. She has been on Bactrim recently and has been vomiting since yesterday with diarrhea as well She complains of back pain without any fever and/or chills On examination Very weak and lethargic Blood pressure noted to be low at systolic 70s without any tachycardia, tachypnea, fever or desaturation Chest-clear to auscultate bilaterally Heart-S1-S2, 2/6 ejection systolic murmur over precordium and aortic area Abdomen-soft, nontender, bowel sounds present Extremities-2+ edema bilaterally with generalized bruising mostly in the extremities [employer]-alert, awake and oriented x3. Generally very weak and lethargic Admission labs, EKG and imaging studies reviewed Has septic shock secondary to recurrent UTI with possible ESBL SELWYN likely secondary to dehydration, does not have any hydronephrosis on CAT scan Factor V Leiden with generalized bruising Stable aortic stenosis without any cardiac symptoms Mild troponin elevation likely secondary to SELWYN Recent ureteric stone hydronephrosis status post ureteric stent placement The patient was transferred to ICU for administration of pressors since to improve blood pressure Agree with assessment and plan as outlined above by SOHAM Villegas Dr
[2021-01-05] MEDS ORDERED: GLUCOSE 10 TABS/TUBE PO PRN (18:49)
[2021-01-05] MEDS ORDERED: GLUCAGON FOR INJ 1 MG VIAL SQ PRN (18:49)
[2021-01-05] MEDS ORDERED: GLUCOSE 40% GEL 15 GM TUBE PO PRN (18:49)
[2021-01-05] MEDS: DEXTROSE 50% 50 ML SYRINGE IV PRN (19:19)
[2021-01-05] MEDS ORDERED: NOREPINEPHRINE/D5W 8 MG/508 ML IV ONE (20:09)
[2021-01-05] MEDS: NOREPINEPHRINE/D5W 8 MG/508 ML BAG IV SCH (20:10)
[2021-01-05] MEDS ORDERED: STAT IV Infusion **Titration per Protocol STA (20:17)
[2021-01-05] MEDS ORDERED: METOPROLOL SUCC 25MG EXT REL TAB PO SCH (21:00)
[2021-01-05] MEDS ORDERED: allopurinoL 100 MG TAB PO SCH (21:00)
--- NOTE | 2021-01-05 21:16 | Procedure Note ---
Procedure Note Date of Service January 05, 2021 Note INTERNAL JUGULAR CENTRAL LINE PROCEDURE NOTE: Procedure: Internal Jugular Central Line Placement Attending: Dr. Nisha Mueller Provider: MORGAN Smart Indication: Central Drug Administration, Poor Venous Access, Multiple Lab Draws Necessary, etc. Anesthesia: Lidocaine 1% Line placed emergently in the setting of hypotension/shock requiring vasopressor support. A time-out was completed verifying correct patient, procedure, site, positioning, and implants(s) or special equipment if applicable. Patients right neck was cleansed and draped in the typical sterile fashion using Chloraprep. The Internal Jugular Vein and Carotid Artery were identified using ultrasound. The superficial tissue was anesthetized using 3 mL of 1% lidocaine without epinephrine under direct visualization with the ultrasound. After adequate anesthetization was achieved, the Internal Jugular vein was cannulated under direct ultrasound guidance using an introducer needle on a syringe. Good venous blood return was maintained prior to removal of syringe from introducer needle. Using Seldinger Technique, a guide wire was advanced through the introducer needle without resistance. The introducer needle was removed and ultrasound images were obtained of the guide wire within the Internal Jugular Vein and saved to the patients medical record. A small incision was made in penetrating fashion at the guide wire insertion site utilizing an 11 blade scalpel. The dilator was advanced to the vessel without resistance. The dilator was exchanged for the triple lumen catheter which was advanced into the vessel without resistance. The guide wire was removed intact from the catheter without issue. Claves were placed on each catheter tip with confirmation of good blood flow from each lumen. Each port was easily flushed with sterile saline. The catheter was placed at 16 cm and sut[address] in place. BioPatch was applied to the catheter and a sterile Tegaderm dressing was applied over the catheter with careful attention to sterility. Patient tolerated procedure well. No immediate complications were met. Post procedure x-ray was completed, placement was appropriate and no pneumothorax was noted. Images obtained are saved for permanent record Procedural Ultrasound Guidance: Procedure Date: 01/05/2021 Indication: Central venous catheter insertion Attending: Dr. Nisha Mueller Provider: MORGAN Smart Artery AND Vein visualized: Yes Compressible Vein: Yes Guidewire or Short Catheter seen in vein prior to dilation: Yes Line confirmed in Vein with ultrasound: Yes Images obtained are saved for permanent record. Coding CPT Codes Tubes, Drains, and Vasc Access - Tubes, Drains, and Vasc Access: [id number] Place catheter in vein superior or inferior vena cava ([id number]) Tubes, Drains, and Vasc Access - Tubes, Drains, and Vasc Access: [id number] Ultrasound Guidance For Vascular ([id number]) [facility] [place] Procedure Codes (Charges) Tubes, Drains, and Vasc Access Procedure 1: Tubes, Drains, and Vasc Access: [id number] Place catheter in vein superior or inferior vena cava Procedure 2: Tubes, Drains, and Vasc Access: [id number] Ultrasound Guidance For Vascular
--- NOTE | 2021-01-05 21:16 | Critical Care Consultation ---
Date of Consultation January 05, 2021 Assessment & Plan (1) Shock: Reason Critically Ill: 75-year-old female presents to the ICU with hypotension/shock from potential UTI source, now requiring vasopressor support. Neuro - Mood disorder/anxiety depression: Continue home med regimen bupropion, buspirone, Cymbalta Cardiac - Shockpatient received IV fluid 3 L crystalloid with systolic blood pressures remaining in 70s, SELWYN and elevated LFTs also noted on chemistry -Most likely secondary to septic shock as patient with persistent multidrug- resistant UTI, see ID management below -Cortisol 60 appropriate, no indication for steroids -Mild elevation of troponin 0.214--> 0.199, no ST elevation on EKG. Suspect poor renal function may be contributing. Continuous monitor on telemetry and daily EKGs -Echo pending -Hemoconcentrated on CBC and reports 2-day history of nausea and vomiting, suspect dehydration/hypovolemia contributing. Continue IV fluid resuscitation and given 500 albumin -CVC emergently inserted to the right IJ, currently on Levophed for MAP greater than 65. CVA, PVDcontinue statin HTNhold MTP for hypotension Severe ASpatient with work-up for TAVR via [place], follow-up echo Respiratory - History of OSABiPAP HS 17/ home settings Currently maintaining oxygen saturation on room air and lungs clear to auscultation, monitor continuous pulse ox GI - Recent admission for colitis/GI bleedpatient with complaints of diarrhea x2 days, none thus far today and colitis appears improved on CT imaging. -No further reports of melena and H&H stable -We will send C. difficile testing if diarrhea occurs -Monitor Transaminitismild, appears to be chronic. Hypotension may be contributing. Liver unremarkable on CT imaging. Trend GERDcontinue PPI RENAL/LYTES - SELWYN on CKD stage IIIpatient with creatinine of 2.4 with baseline 1.0 -Hydronephrosis resolved on CT imaging and ureteral stent in place -Most likely prerenal this patient presents with hypovolemia/hypotension -Continue IV fluid resuscitation -Continue map management with vasopressor support -Avoid nephrotoxins and renally adjust medication -We will monitor routine BMP and consider consult for nephrology if no improvement by a.m. - UTI/cystitisFoley inserted for strict I's and O's -Bladder wall thickening noted on CT abdomen -See treatment in ID below History of ureteric cancerstatus post radiation ENDO - DM type IImost recent A1c of 4.6 and hypoglycemic on this admission. 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 Will obtain C. difficile if occurs -No active disease noted on chest x-ray -UA with reflex urine culture and blood cultures pending. Follow-up sensitivities -Lactate unremarkable -Continue meropenem LINES/IV ACCESS - CVC right IJ, peripheral IVs DVT PROPHYLAXIS - SCDs, hold on anticoagulation for now due to history of GI bleed since status post IVC filter I have personally spent 65 minutes of critical care time in the direct management of this patient. This is a life/limb threatening event. This includes time spent evaluating patient, direct bedside care, chart review, placing orders, interpretation of diagnostic studies, discussion with consultants, patient, and family members, as well as other required patient management activities. This time is exclusive of all separately billable procedures, and teaching time and separate from and in addition to any other critical care service time. Thank you for allowing us to participate in the care of this patient. Please refer to my attending physician's documentation for any further recommendations. (2) Sepsis: (3) Cystitis: (4) SELWYN (acute kidney injury): (5) Acute dehydration: (6) Recurrent UTI (urinary tract infection): (7) Hydronephrosis, left: (8) Left ureteral stone: (9) Acute on chronic heart failure with preserved ejection fraction (HFpEF): (10) Depression with anxiety: (11) CKD (chronic kidney disease), stage III: (12) NICOLASA on CPAP: (13) GERD (gastroesophageal reflux disease): (14) Aortic stenosis, severe: History of Present Illness Attending Physician: Janett Lyman MD History of Present Illness Ms. booker is a 75-year-old female with past medical history including DM type II, diastolic heart failure, aortic stenosis, CKD stage III, HTN, CVA, PVD, COPD, uterine cancer s/p radiation, gastric bypass, mood disorder, factor V Leyden mutation with history of recurrent PE/DVT (s/p IVC filter), colitis/GI bleed, and recurrent UTIs secondary to obstructive uropathy with recent admission for which she received ureteral stents. She was also found to have multidrug-resistant UTI and was being treated with Bactrim outpatient and was recently admitted for GI bleed/colitis and had been discharged home. She presented to the emergency department earlier today with complaints of nausea, vomiting and diarrhea and generalized weakness persisting for 2 days and bilateral leg swelling that started about a week ago. Her Lasix was increased as an outpatient without improvement in leg swelling. Patient states that she lives at home with her son and is nonambulatory for the past several months. Patient was found to have SELWYN with creatinine of 2.4, baseline 1.0. CT of the abdomen showed interval resolution of the left-sided hydronephrosis with unchanged ureteral stent placement and stable left-sided nephrolithiasis, persistent bladder wall thickening, and improved colitis with mild pericolonic fat stranding in the sigmoid colon without evidence of bowel obstruction. Patient was admitted to telemetry/PCU for treatment of sepsis/UTI and SELWYN. I was notified by hospitalist this afternoon that the patient had become increasingly hypotensive despite fluid resuscitation after admission to PCU and transferred to ICU for vasopressor support was requested. Patient was placed on Levophed and central line was emergently inserted on arrival to the ICU. On arrival to the ICU the patient is alert and oriented without acute distress. Systolic blood pressures in the 70s improved with administration of vasopressors. Currently the patient denies dizziness/syncope, headache, recent fevers, chest pain, palpitations, shortness of breath. Patient confirms recent nausea and vomiting and diarrhea over the past 2 days but none thus far today. She denies melena. She complains of mild generalized abdominal pain, without guarding on exam. She has notable bilateral lower extremity edema +4. Patient to remain in ICU for further management at this time. Allergies Allergy/AdvReac Type Severity Reaction Status Date / Time adhesive Allergy Intermediate BLISTERS Verified 01/05/21 15:18 WITH STERI-STRIPS Iodinated Contrast Media Allergy Intermediate hive Verified 01/05/21 15:18 [Iodinated Contrast- Oral and IV Dye] naproxen Allergy Intermediate SWELLING - Verified 01/05/21 15:18 TOLERATES ESTEVES-[address] HALL ciprofloxacin Allergy Mild RASH Verified 01/05/21 15:18 Quinolones Allergy Mild NEUROLOGIC Verified 01/05/21 15:18 SYMPTOMS Home Medications Medication Instructions Recorded Confirmed Type allopurinol 100 mg PO BID 06/23/19 01/05/21 History buspirone 5 mg PO TID 06/23/19 01/05/21 History cyanocobalamin (vitamin B-12) 1,000 mcg IM .Q3M 06/23/19 01/05/21 History duloxetine [Cymbalta] 40 mg PO HS 06/23/19 01/05/21 History ondansetron 4 mg PO Q8H PRN 06/23/19 01/05/21 History Flintstones Complete 1 tab PO QAM 08/27/19 01/05/21 History atorvastatin 40 mg PO PM 12/31/19 01/05/21 History bupropion HCl [Wellbutrin SR] 200 mg PO BID 12/31/19 01/05/21 History calcium carbonate [Tums Extra 750 mg PO .PRN PRN 12/31/19 01/05/21 History Strength Smoothies] nystatin 1 appln TOP BID PRN 12/31/19 01/05/21 History omeprazole 20 mg PO QAM 12/31/19 01/05/21 History oxybutynin chloride 5 mg PO BID 12/31/19 01/05/21 History Probiotic 3,000 mmu cells PO QAM 06/21/20 01/05/21 History potassium chloride [K-Tab] 10 meq PO BID 06/21/20 01/05/21 History metoprolol succinate 12.5 mg PO BID 09/25/20 01/05/21 History cholecalciferol (vitamin D3) 50 mcg PO DAILY 12/01/20 01/05/21 History docusate sodium 100 mg PO BID 12/01/20 01/05/21 History loperamide 2 mg PO Q4H PRN 12/01/20 01/05/21 History furosemide 60 mg PO .4XW 12/08/20 01/05/21 History furosemide 80 mg PO .3XW 12/08/20 01/05/21 History oxycodone 5 mg PO Q4 PRN 12/08/20 01/05/21 History methenamine hippurate 1 gram tablet 1 g PO BID #60 tab 12/22/20 01/05/21 Rx sulfamethoxazole 800 1 tab PO BID 7 Days #14 tab 01/02/21 01/05/21 Rx mg-trimethoprim 160 mg tablet Patient History Medical History Aortic stenosis, severe PAULY 0.62-0.66 cm2 per 08/31/2020 echo. Patient seen by [facility] 08/14/20 for possible TAVR, workup initiated with repeat echo, but patient subsequently admitted to [facility] again for urologic issues. 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 Per cardiology consult , "Only mild left ventricular dysfunction and suspect stress mediated etiology rather than acute ischemic event. Patient on appropriate beta-sheryl therapy." Apical wall motion abnormality resolved on 08/04/20 ECHO Atrial fibrillation follows with Michael Bui> NO PACER Bleeding hemorrhoids Carotid artery stenosis [place] , 50%, LICA 50-69% by 04/09/19 doppler Chronic diastolic heart failure CKD (chronic kidney disease), stage III Degenerative disc disease Depression Dyslipidemia Factor 5 Leiden mutation, heterozygous recurrent PE/DVT; status post IVC filter placement, on Coumadin Frequent UTI RECENT HOSPITALIZATION GERD (gastroesophageal reflux disease) [place] filter in place History of COPD "MILD" History of esophageal disorder esophageal diverticulum History of peripheral neuropathy bilateral feet History of stress incontinence Hx of cancer of uterus diagnosed 03/2019---radiation only Hx of gout Hx of iron deficiency anemia Hypertension Intestinal disorder post op malabsorption Non-ST elevation UT (NSTEMI) In setting of acute illness (urosepsis 2/2 obstructing stone) 06/21/20 On anticoagulant therapy warfarin daily NICOLASA on CPAP Pes planus Post traumatic stress disorder Pulmonary embolism hx of bilateral ~2002 2/2 FFL Sleep apnea CPAP Spinal stenosis Stroke 06/03/2019 after I&D left hip--vision loss in left eye--no neurologist Vision abnormalities r peripheral vision loss( posterior ischemic optic neuropathyleft eye), left side altered vision like looking through a screen door Weakness Wheelchair dependence Surgical History H/O cystoscopy 06/23/20 and 07/20/20 [facility] History of arthroplasty of left hip 2006 @ [facility]--infected after, multiple sx's History of biopsy of bladder benign History of colonoscopy with polypectomy History of incision and drainage 05/2019 of left hip History of left hip replacement 03/2019 @ [facility] [place] History of left shoulder replacement History of right hip replacement 2005 @ [facility] History of tonsillectomy and adenoidectomy History of tooth extraction Hx of gastric bypass 2016 Hx of tubal ligation Hx of umbilical hernia repair mesh inserted S/P colon resection 1984 @ [facility] complete sigmoid removed d/t diverticular disease Family History Mother , age 91 Heart disease Family hx colonic polyps Father , age 42 Factor V deficiency Myocardial infarction Sister No problems noted. Sister Endometrial cancer Brother Family hx colonic polyps Brother , age 50 Meningitis Brother No problems noted. Brother No problems noted. Son No problems noted. Son No problems noted. Son Colon abnormality Son , in his 30 `s , " girl friend over dosed the patients son " Drug overdose Grandfather (Paternal) Family history of diabetes mellitus Family hx of colon cancer Other No family history of adverse response to anesthesia Social History Smoking Status: Former smoker Tobacco Type: Cigarettes Age Started Using Tobacco: 22; packs per day: 0.5; Years Smoked: 25; Cigarettes Per Day: 10; Smoking End Date: 11/02/1999; Second Hand Exposure: No; Do You Dip or Chew Tobacco: No; Hx Alcohol Use: No Hx Substance Use: No Preferred Language: Cymraes Communication Ability: Effective Visual Impairment: No Limitations Hearing Ability: Normal Sharepoint Manager Required: No Beliefs That Will Affect Care: None marital status: / Current Living Situation: Family Current Living Situation Comment: son current occupational status: retired 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 Other Information That Helps Us Care for You: No Feels Safe at Home: Yes Safety Concerns: Feels Safe At This Time Assistive Devices: BiPap, Glasses and Wheelchair Review of Systems Review of Systems: All systems reviewed & are unremarkable except as noted in HPI & below Physical Exam Constitutional: cooperative and comfortable Eyes: PERRL, conjunctivae normal, anicteric sclerae ENMT: external ear and nose normal, oropharynx normal Neck: trachea midline, no thyromegaly Respiratory: normal respiratory effort, lungs clear to auscultation Cardiovascular: Rate/Rhythm: regular rate and regular rhythm Heart Sounds: normal S1, normal S2 and + murmur Vessels: no JVD Bilateral lower extremity edema +4 Gastrointestinal (Abdomen): Mild generalized abdominal tenderness. Abdomen soft and nondistended. Bowel sounds present in all 4 quadrants. No melena. Skin: no rashes, warm and dry Skin abrasion to the left bella with scant serosanguineous drainage. No other wounds noted on exam Neurologic: PERRL, EOMI, accommodation nl, no face palsy, no dysarthria Psychiatric: A+Ox3, euthymic affect Genitourinary: Indwelling Ramírez catheter present. Urine appears dark and purulent in tubing Results & Data Results & Data ([facility]) Vital Signs (Past 12 Hours) Vital Signs Temp Pulse Pulse Resp BP BP Pulse Ox 01/05/21 20:21 80 16 100 01/05/21 20:19 83 12 128/82 100 01/05/21 20:11 94 H 23 103/65 100 01/05/21 20:09 77 23 113/81 100 01/05/21 20:05 86 13 58/47 L 100 01/05/21 20:01 83 14 100 01/05/21 19:59 36.8 C 88 14 79/50 L 100 01/05/21 19:52 84 71/59 L 100 01/05/21 19:50 91 H 28 H 99 01/05/21 19:45 86 21 99 01/05/21 19:37 86 16 130/79 100 01/05/21 18:50 36.5 C 91 H 18 89/65 L 100 01/05/21 18:24 87 18 112/61 100 01/05/21 17:45 86 14 109/57 L 100 01/05/21 17:00 88 16 112/67 100 01/05/21 16:09 86 14 113/65 100 01/05/21 14:50 93 H 20 101/68 100 01/05/21 13:31 94 H 18 111/63 100 01/05/21 13:16 92 H 20 95/69 L 100 01/05/21 12:01 36.5 C 102 H 18 78/60 L 100 01/05/21 11:45 36.5 C 102 H 20 81/61 L 100 Coding Level of Care Code Critical Care 1st 30-74 mins Diagnoses Shock R57.9 Sepsis A41.9; R65.20 Sepsis acute organ dysfunction status: with acute organ dysfunction Sepsis type: sepsis due to unspecified organism Severe sepsis acute organ dysfunction type: unspecified Severe sepsis shock status: unspecified Cystitis N30.90 SELWYN (acute kidney injury) N17.9 Acute dehydration E86.0 Recurrent UTI (urinary tract infection) N39.0 Hydronephrosis, left N13.30 Left ureteral stone N20.1 Acute on chronic heart failure with preserved ejection fraction (HFpEF) I50.33 Depression with anxiety F41.8 CKD (chronic kidney disease), stage III N18.30 NICOLASA on CPAP G47.33; Z99.89 GERD (gastroesophageal reflux disease) K21.9 Aortic stenosis, severe I35.0 (1) Sepsis Sepsis acute organ dysfunction status: with acute organ dysfunction Sepsis type: sepsis due to unspecified organism Severe sepsis acute organ dysfunction type: unspecified Severe sepsis shock status: unspecified Qualified Code(s): A41.9 - Sepsis, unspecified organism; R65.20 - Severe sepsis without septic shock
[2021-01-05] MEDS ORDERED: ALBUMIN 5% 500 ML IV ONE (21:39)
[2021-01-05] MEDS: D5W AND NSS 1,000 ML IV SCH (21:52)
[2021-01-05] MEDS: INSULIN ASPART 100 UNITS/ML 3 ML PEN SC SCH (21:56)
[2021-01-05] MEDS: OXYBUTYNIN CHLORIDE 5 MG TAB PO SCH (21:57)
[2021-01-05] MEDS: ATORVASTATIN 40 MG TAB PO SCH (21:58)
[2021-01-05] MEDS: busPIRone 5 MG TAB PO SCH (21:58)
[2021-01-05] MEDS: buPROPion SR 100 MG TABCR PO SCH (21:58)
[2021-01-05] MEDS: DULoxetine HCL 20 MG CAP PO SCH (22:01)
[2021-01-05 22:15] LABS: Appearance Urine Turbid (Clear); Bacteria Urine Automated 4+ (Negative); Blood Urine 3+ (Negative); Color Urine Orange; Epithelial Cell Urine Auto >30 /lpf (0-5); Glucose Urine UA Negative (Negative); Ketones Urine Negative (Negative); Leukocyte Esterase Urine 3+ (Negative); Nitrite Urine Positive (Negative); Protein Urine 3+ (Negative); Specific Gravity Urine 1.019 (1.000-1.030); Urobilinogen Urine Negative (Negative); WBC Urine Automated >30 /hpf (0-5); pH Urine 6.5 (4.5-7.5)
[2021-01-05 22:21] LABS: Bilirubin Urine 2+ (Negative)
[2021-01-05 22:28] LABS: Cast Urine Automated 0 /lpf (0-5); RBC Urine Automated >30 /hpf (0-4)
[2021-01-05] MEDS: MEROPENEM 500 MG in SYRINGE 0 ML IV SCH (23:25)
[2021-01-06] MEDS: oxyCODONE HCL IR 5 MG TAB (IMMEDIATE RELEASE) PO PRN ×3 (01:41→20:37)
[2021-01-06] MEDS ORDERED: ALBUMIN 25% 12.5 GM/50 ML VIAL IV SCH (02:00)
[2021-01-06] MEDS ORDERED: NORMOSOL-R 500 ML IV ONE (03:59)
[2021-01-06] MEDS ORDERED: NORMOSOL-R 1,000 ML IV ONE (04:01)
[2021-01-06 05:29] LABS: Albumin Level 2.2 gm/dl (3.4-5.0); BUN Creatinine Ratio 19.1 (10-20); Calcium 6.6 mg/dl (8.5-10.1); Creatinine Clr Calc Pharmacy 24.8 ml/min; Est GFR (Non-African American) 20.7; Potassium 3.4 mmol/L (3.5-5.1)
[2021-01-06] MEDS: D5W AND NSS 1,000 ML IV SCH ×2 (05:37→16:43)
[2021-01-06 05:54] LABS: Albumin Globulin Ratio 1.2 (0.9-2); Bilirubin,Total 0.4 mg/dl (0.2-1); Globulin 1.9 gm/dl (2.5-4.0); Thyroid Stimulating Hormone 1.97 uIu/ml (0.300-4.500); Total Protein 4.1 gm/dl (6.4-8.2)
[2021-01-06 05:56] LABS: Hematocrit (blood only) 22.7 % (37-47); Hemoglobin 7.6 g/dL (12.0-16.0); Mean Corpuscular Hemoglobin 28.6 pg (25-34); Mean Corpuscular Hgb Conc 33.5 g/dL (32-36); Mean Corpuscular Volume 85.3 fL (80-100); Platelet Count 119 K/uL (130-400); RDW Coefficient of Variation 18.5 % (11.5-14.5); RDW Standard Deviation 58.1 fL (36.4-46.3); Red Blood Count 2.66 M/uL (4.2-5.4); White Blood Count 15.72 K/uL (4.8-10.8)
[2021-01-06 05:57] LABS: Immature Granulocytes # (auto) 0.04 K/uL (0.00-0.02); Immature Granulocytes % (auto) 0.3 %; Lymphocytes # (auto) 0.54 K/uL (1.2-3.4); Lymphocytes % (auto) 3.4 %; Monocytes # (auto) 0.28 K/uL (0.11-0.59); Monocytes % (auto) 1.8 %; Neutrophils # (auto) 14.86 K/uL (1.4-6.5); Neutrophils % (auto) 94.5 %; Poikilocytosis Present; Polychromasia 1+
[2021-01-06] MEDS ORDERED: POTASSIUM CHLORIDE 20 MEQ/15 ML UDC PO STA (06:02)
--- NOTE | 2021-01-06 07:15 | XRay Report ---
XR chest 1V portable CLINICAL HISTORY: f/u COMPARISON STUDY: Chest radiograph January 05, 2021. FINDINGS: Right internal jugular central line remains in place. There is a total shoulder arthroplast y. Minimal left basilar opacity favors atelectasis. There is no pneumothorax or pleural effusion. No evidence for pneumonia or pulmonary edema. Severe degenerative changes of the right shoulder are inci dentally noted. IMPRESSION: No acute cardiopulmonary findings. No change in appearance of the chest. ACT 112: Negative or not required by law. Electronically signed by: Duke Terry M.D. 01/06/2021 7:13 AM
[2021-01-06] MEDS: ADVANCED PROBIOTIC 1250 MG CAPSULE PO SCH (07:26)
[2021-01-06] MEDS: busPIRone 5 MG TAB PO SCH ×3 (07:26→19:46)
[2021-01-06] MEDS: CHOLECALCIFEROL 1,000 UNITS 25 MCG TAB PO SCH (07:27)
[2021-01-06] MEDS: OXYBUTYNIN CHLORIDE 5 MG TAB PO SCH ×2 (07:27→19:45)
[2021-01-06] MEDS: PANTOprazole 40 MG TAB PO SCH (07:27)
[2021-01-06] MEDS: MEROPENEM 500 MG in SYRINGE 0 ML IV SCH ×2 (07:38→19:44)
[2021-01-06] MEDS: buPROPion SR 100 MG TABCR PO SCH ×2 (07:39→19:45)
[2021-01-06 07:51] LABS: Magnesium 1.9 mg/dl (1.8-2.4); Phosphorus 5.1 mg/dl (2.5-4.9)
--- NOTE | 2021-01-06 07:56 | Critical Care Progress Note ---
Date of Service January 06, 2021 Assessment & Plan (1) Shock: Reason Critically Ill: 75-year-old female presents to the ICU with hypotension/shock from potential UTI source, now requiring vasopressor support. Neuro - Mood disorder/anxiety depression: Continue home med regimen bupropion, b uspirone, Cymbalta Cardiac - Septic shock patient received IV fluid 3 L crystalloid with systolic blood pressures remaining in 70s, SELWYN and elevated LFTs also noted on chemistry -Most likely secondary to septic shock as patient with persistent multidrug- resistant UTI -Random cortisol cortisol 60 appropriate, no indication for steroids -Mild elevation of troponin 0.214--> 0.199, no ST elevation on EKG. likely type II OK, monitor -Echo 01/06/2021 EF 55-60%, moderate pulmonary hypertension severe . -Continue with vasopressor support and keep MAP greater than 65 CVA, PVDcontinue statin HTNhold MTP for hypotension Severe AScardiology on board Respiratory - History of OSABiPAP HS 26/10 home settings Continue with O2 supplementation to keep oxygen saturation between 88-92% BiPAP nightly and as needed shortness of breath GI - Continue with p.o. diet Transaminitis mild, appears to be chronic. Hypotension may be contributing. Liver unremarkable on CT imaging. -Monitor GERDcontinue PPI RENAL/LYTES - SELWYN on CKD stage III -Baseline creatinine 1.9-1 -Hydronephrosis resolved on CT imaging and ureteral stent in place -Most likely prerenal this patient presents with hypovolemia/hypotension -Keep MAP greater than 65 -Avoid nephrotoxins and renally adjust medication -Strict in and out -ATN might be playing a role High anion gap metabolic acidosis -Likely secondary to elevated BUN -Lactic acidosis resolved -Monitor - UTI/cystitisFoley inserted for strict I's and O's -Bladder wall thickening noted on CT abdomen -See treatment in ID below History of ureteric cancerstatus post radiation ENDO - DM type IImost recent A1c of 4.6 and hypoglycemic on this admission. 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 Patient also has anasarca most likely from hypoalbuminemia from poor intake. I think there is a component of ATN given the hypotension. Creatinine is trending down but patient is oliguric. If there is no improvement in urine output patient will need dialysis in future. There is no emergent indication for dialysis. Nephrology has been consulted. Will await recommendations. There is a drop in hemoglobin. Patient hemoglobin of presentation was 11. I think this was because of hemoconcentration. Patient baseline is 8.5. Repeat H&H. If it is less than 7 will transfuse. Patient has history of Morganella UTI which was sensitive to cefepime and meropenem Follow-up urine lites. I have personally spent 38 minutes of critical care time in the direct management of this patient. This is a life/limb threatening event. This includes time spent evaluating patient, direct bedside care, chart review, placing orders, interpretation of diagnostic studies, discussion with consultants, patient, and family members, as well as other required patient management activities. This time is exclusive of all separately billable procedures, and teaching time and separate from and in addition to any other critical care service time. Please note the above document was generated using voice recognition software. It may contain grammatical, syntax or spelling errors. (2) Sepsis: (3) SELWYN (acute kidney injury): (4) Recurrent UTI (urinary tract infection): Admission and Anticipated Discharge Date Admission Date: January 05, 2021 Subjective Patient seen and examined at bedside. No acute distress, no adverse events overnight. Patient was on Levophed 0.03 mics at the time of examination. Map was in the 70s. Patient states that she is feeling better compared to when she came to the hospital. Denies any nausea or vomiting. Does complain of mild abdominal pain on the left side. No headache, no chest pain, no shortness of breath. Review of Systems Review of Systems: All systems reviewed & are unremarkable except as noted in Subjective Physical Exam Physical Exam: Constitutional: No acute distress HEENT: EOMI, PERRLA Respiratory system: Decreased air entry bilaterally, no wheeze, no rhonchi, mild crackles bilateral lower lobes CVS: S1-S2 positive, positive 3 out of 6 systolic ejection murmur appreciated best at the aorta Abdomen: Soft, nontender, nondistended, positive bowel sounds x4, obese Extremities: +2 pulses bilaterally radialis/ dorsalis pedis, no cyanosis, +2 pitting edema bilateral lower extremity, +1 pitting edema bilateral upper extremity, anasarca, ecchymosis appreciated bilateral upper extremities dorsal surface Neuro: Awake alert oriented x3 Psych: Normal mood and affect G/U: Positive Ramírez Skin: no rashes, warm and dry Lymphatic: no cervical or axillary lymphadenopathy Results & Data Results & Data ([facility]) Vital Signs (Past 12 Hours) Vital Signs Temp Pulse Resp BP Pulse Ox 01/06/21 06:19 36.1 C L 85 17 104/59 L 100 01/06/21 06:04 36.1 C L 82 18 107/58 L 01/06/21 05:49 36.0 C L 84 19 109/62 01/06/21 05:34 36.0 C L 83 20 92/58 L 01/06/21 05:30 36.0 C L 81 15 86/47 L 99 01/06/21 05:19 36.0 C L 77 13 86/46 L 100 01/06/21 05:04 35.9 C L 78 16 86/49 L 01/06/21 04:49 35.9 C L 74 18 98/53 L 100 01/06/21 04:34 35.9 C L 75 16 96/57 L 100 01/06/21 04:30 36.7 C 01/06/21 04:19 35.9 C L 72 18 97/52 L 100 01/06/21 04:04 36.0 C L 81 15 94/61 L 100 01/06/21 03:49 36.0 C L 82 14 96/52 L 01/06/21 03:34 36.0 C L 84 14 103/53 L 100 01/06/21 03:19 36.1 C L 82 16 100/50 L 100 01/06/21 03:04 36.1 C L 84 12 107/65 100 01/06/21 02:49 36.0 C L 77 14 101/58 L 100 01/06/21 02:34 36.0 C L 79 12 104/49 L 100 01/06/21 02:19 36.1 C L 73 15 106/46 L 100 01/06/21 02:04 36.1 C L 75 19 110/47 L 100 01/06/21 01:49 79 19 105/55 L 100 01/06/21 01:35 81 14 92/63 L 100 01/06/21 01:34 80 12 77/62 L 100 01/06/21 01:19 80 15 96/52 L 100 01/06/21 01:04 80 19 97/50 L 100 01/06/21 00:49 84 18 100/54 L 100 01/06/21 00:34 80 17 98/47 L 100 01/06/21 00:20 83 19 100 01/06/21 00:19 82 18 96/56 L 100 01/06/21 00:10 81 18 100 01/06/21 00:04 80 18 99/59 L 100 01/06/21 00:00 83 01/05/21 23:49 82 13 99/47 L 100 01/05/21 23:34 86 14 102/51 L 100 01/05/21 23:19 80 16 106/52 L 100 01/05/21 23:04 81 15 109/59 L 100 01/05/21 22:49 81 14 127/64 100 01/05/21 22:34 81 12 124/67 99 01/05/21 22:30 36.6 C 81 15 100 01/05/21 22:19 82 16 116/78 99 01/05/21 22:15 82 16 98 01/05/21 22:03 85 16 123/81 100 01/05/21 22:00 82 16 100 01/05/21 21:49 89 12 123/78 100 01/05/21 21:45 83 14 100 01/05/21 21:37 86 15 122/71 100 01/05/21 21:34 85 11 L 122/71 99 01/05/21 21:30 85 13 100 01/05/21 21:18 89 14 127/77 100 01/05/21 21:15 89 12 100 01/05/21 21:04 86 21 119/74 100 01/05/21 21:01 89 16 93/62 L 100 01/05/21 21:00 89 20 97 01/05/21 20:45 84 13 100 01/05/21 20:30 84 17 100 01/05/21 20:21 80 16 100 01/05/21 20:19 83 12 128/82 100 01/05/21 20:11 94 H 23 103/65 100 01/05/21 20:09 77 23 113/81 100 01/05/21 20:05 86 13 58/47 L 100 01/05/21 20:01 83 14 100 01/05/21 20:00 83 01/05/21 19:59 36.8 C 88 14 79/50 L 100 01/06/21 04:36 01/06/21 04:36 Coding Level of Care Code Critical Care 1st 30-74 mins Diagnoses Shock R57.9 Sepsis A41.9; R65.20 Sepsis acute organ dysfunction status: with acute organ dysfunction Sepsis type: sepsis due to unspecified organism Severe sepsis acute organ dysfunction type: unspecified Severe sepsis shock status: unspecified SELWYN (acute kidney injury) N17.9 Recurrent UTI (urinary tract infection) N39.0 Time Spent (min) 38 (1) Sepsis Sepsis acute organ dysfunction status: with acute organ dysfunction Sepsis type: sepsis due to unspecified organism Severe sepsis acute organ dysfunction type: unspecified Severe sepsis shock status: unspecified Qualified Code(s): A41.9 - Sepsis, unspecified organism; R65.20 - Severe sepsis without septic shock
[2021-01-06] MEDS: INSULIN ASPART 100 UNITS/ML 3 ML PEN SC SCH ×4 (07:57→20:52)
--- NOTE | 2021-01-06 08:30 | XRay Report ---
XR chest 1V portable CLINICAL HISTORY: central line placement COMPARISON STUDY: Chest radiograph January 05, 2021 at 1:18 PM. FINDINGS: There is no pneumothorax following placement of a right internal jugular central line. Cath eter tip projects over the distal SVC. Left arthroplasty is partially imaged. There is no pleural eff usion. No consolidation is noted. No evidence for pulmonary edema. Cardiomediastinal silhouette is no rmal. Old bilateral rib fractures are incidentally noted. IMPRESSION: No pneumothorax following placement of a right internal jugular central line. ACT 112: Negative or not required by law. Electronically signed by: Duke Terry M.D. 01/06/2021 8:29 AM
[2021-01-06 08:56] LABS: Creatinine Urine Random 29.1 mg/dl; Potassium Random Urine 26.9 mmol/L
--- NOTE | 2021-01-06 11:37 | Hospitalist Progress Note ---
Date of Service January 06, 2021 Assessment & Plan (1) Sepsis: Patient is a 75 yr female with H/O DM II, chronic diastolic heart failure, aortic stenosis, CKD III, HTN, CVA, PVD, COPD, uterine cancer s/p radiation, gastric bypass, mood disorder, factor V Leiden mutation, colitis, recurrent UTI secondary to obstructive uropathy presented to ER with complaint of nausea and generalized weakness. Septic Shock Likely Source: Complicated UTI H/O Left ureteral stent placement by Dr. Castellanos on 12/02/2020. --CT ABD:Interval resolution of the left-sided hydronephrosis. The left ureteral stent is unchanged in position. There remains a punctate mid left ureteral stone adjacent to the ureteral stent. Stable left-sided nephrolithiasis. Stable punctate bladder calculi. Near complete resolution of the colitis with only mild pericolonic fat stranding remaining at the mid sigmoid colon. No evidence for bowel obstruction. Severe body wall edema which has progressed. Cholelithiasis. Trace left pleural effusion has also improved. Persistent bladder wall thickening. -CXR:No acute cardiopulmonary findings. No change in appearance of the chest. -Negative COVID Screen -Procalcitonin:3.6 -Normal Lactate levels -Blood/Urine Cultures pending -On Pressors-Wean off as able -Received IV fluids -Continue Meropenem -Appreciate [employer] help SELWYN on CKD III Baseline Cr:~1. Cr:2.4>2.26 CT ABD as above Avoid nephrotoxic agents as able Home diuretics, Bactrim held Monitor renal function On IV fluids Hypokalemia Likely due to poor oral intake Diuretics could have contributed Normal Mag levels Replace electrolytes as needed Recent colitis/hematochezia CT abdomen pelvis shows near complete resolution of colitis H/O poor bowel prep for colonoscopies in past. Outpatient colonoscopy planned Obtain C. difficile/stool cultures if recurrent diarrhea Elevated troponin In setting of renal failure Trend troponin ECHO pending Factor V Leiden mutation/H/O Recurrent PE/DVT S/P IVC filter placement Off Coumadin secondary to recurrent hematochezia DM II Last Hb A1C: 4.6 in 12/2020 Monitor BSG's NovoLog sliding scale protocol Chronic diastolic heart failure EF 55 to 59%, TTE 2019 monitor I's and O's Diuretics held due to SELWYN Monitor volume status Severe aortic stenosis TAVR contemplated in the future pending cardiac catheterization Cardiology consulted Hypertension Resume metoprolol as below Monitor H/O CVA, PVD Continue statin Uterine Cancer S/P Radiation Mood disorder Continue bupropion, buspirone, Cymbalta Generalized weakness, deconditioning Ongoing for months. Patient with history recurrent hospitalizations PT/OT eval DVT Px: SCDs Code Status DNI only Admission and Anticipated Discharge Date Admission Date: January 05, 2021 Subjective Patient is seen and examined at bedside Poor oral intake Decreased urine output Report chronic left flank pain, dysuria On Pressors Denies chest pain, dyspnea, dizziness, nausea, abd pain Review of Systems Review of Systems: All systems reviewed & are unremarkable except as noted in HPI & below Physical Exam Physical Exam: Physical Exam: Vitals signs as noted above General Appearance:Obese, no apparent distress Head: normocephalic, Atraumatic Eyes: normal inspection, EOMI Neck: supple, Trachea midline Respiratory/Chest: Normal breath sounds, CTA Cardiovascular: S1, S2, + systolic murmur Abdomen/GI:Soft, mild generalized tender, Bowel sounds present Extremities/Musculoskelatal:normal inspection, B/L LE edema Neurologic/Psych:AAOX3, grossly no focal neurological deficits Skin: normal color, warm Results & Data Results & Data ([facility]) Vital Signs (Past 12 Hours) Vital Signs Temp Pulse Resp BP Pulse Ox 01/06/21 11:03 36.5 C 79 18 120/64 100 01/06/21 10:33 36.4 C L 77 20 122/64 100 01/06/21 10:03 36.4 C L 78 19 117/63 100 01/06/21 09:33 36.4 C L 84 118/66 100 01/06/21 09:03 36.4 C L 77 23 119/64 100 01/06/21 08:19 36.4 C L 79 15 112/68 100 01/06/21 08:05 36.4 C L 85 21 109/55 L 01/06/21 08:00 82 01/06/21 07:35 36.3 C L 89 16 90/68 L 100 01/06/21 07:04 36.2 C L 81 15 92/55 L 100 01/06/21 06:50 36.2 C L 80 15 92/50 L 100 01/06/21 06:34 36.1 C L 79 17 93/60 L 100 01/06/21 06:19 36.1 C L 85 17 104/59 L 100 01/06/21 06:04 36.1 C L 82 18 107/58 L 100 01/06/21 05:49 36.0 C L 84 19 109/62 100 01/06/21 05:34 36.0 C L 83 20 92/58 L 100 01/06/21 05:30 36.0 C L 81 15 86/47 L 99 01/06/21 05:19 36.0 C L 77 13 86/46 L 100 01/06/21 05:04 35.9 C L 78 16 86/49 L 100 01/06/21 04:49 35.9 C L 74 18 98/53 L 100 01/06/21 04:34 35.9 C L 75 16 96/57 L 100 01/06/21 04:30 36.7 C 01/06/21 04:19 35.9 C L 72 18 97/52 L 100 01/06/21 04:04 36.0 C L 81 15 94/61 L 100 01/06/21 03:49 36.0 C L 82 14 96/52 L 100 01/06/21 03:34 36.0 C L 84 14 103/53 L 100 01/06/21 03:19 36.1 C L 82 16 100/50 L 100 01/06/21 03:04 36.1 C L 84 12 107/65 100 01/06/21 02:49 36.0 C L 77 14 101/58 L 100 01/06/21 02:34 36.0 C L 79 12 104/49 L 100 01/06/21 02:19 36.1 C L 73 15 106/46 L 100 01/06/21 02:04 36.1 C L 75 19 110/47 L 100 01/06/21 01:49 79 19 105/55 L 100 01/06/21 01:35 81 14 92/63 L 100 01/06/21 01:34 80 12 77/62 L 100 01/06/21 01:19 80 15 96/52 L 100 01/06/21 01:04 80 19 97/50 L 100 01/06/21 00:49 84 18 100/54 L 100 01/06/21 00:34 80 17 98/47 L 100 01/06/21 00:20 83 19 100 01/06/21 00:19 82 18 96/56 L 100 01/06/21 00:10 81 18 100 01/06/21 00:04 80 18 99/59 L 100 01/06/21 00:00 83 01/05/21 23:49 82 13 99/47 L 100 Laboratory Results Short CBC 01/05/21 01/06/21 Range/Units 15:42 04:36 WBC 23.92 H 15.72 H (4.8-10.8) K/uL Hgb 11.4 L 7.6 L D (12.0-16.0) g/dL Hct 35.3 L 22.7 L (37-47) % Plt Count 166 119 L (130-400) K/uL BMP 01/05/21 01/06/21 15:42 04:36 Sodium 133 L 137 Potassium 4.1 3.4 L D Chloride 100 107 Carbon Dioxide 20 L 21 BUN 53 H 43 H Creatinine 2.41 H 2.26 H Glucose 71 81 Calcium 7.8 L 6.6 L D Cardiac Enzymes 01/05/21 01/05/21 Range/Units 15:42 21:04 Troponin I 0.214 H* 0.199 H* (0-0.045) ng/ml Liver Function 01/05/21 01/06/21 Range/Units 15:42 04:36 Total Bilirubin 0.3 0.4 (0.2-1) mg/dl AST 29 20 (15-37) U/L ALT 25 17 (12-78) U/L Alkaline Phosphatase 162 H 101 (45-117) U/L Albumin 1.8 L 2.2 L (3.4-5.0) gm/dl Urine 01/05/21 Range/Units 21:45 Urine Color [place] Urine Appearance Turbid A (Clear) Urine pH 6.5 (4.5-7.5) Ur Specific [place] 1.019 (1.000-1.030) Urine Protein 3+ H (Negative) Urine Glucose (UA) Negative (Negative)
[2021-01-06 12:16] LABS: Hematocrit (blood only) 25.5 % (37-47); Hemoglobin 8.5 g/dL (12.0-16.0)
--- NOTE | 2021-01-06 12:58 | Cardiology Consultation ---
Date of Consultation January 06, 2021 Assessment & Plan (1) Shock: (2) Aortic stenosis, severe: Patient presents with findings of septic shock , working diagnosis is urinary source. No recurrent hydronephrosis on imaging. BP and symptoms improved with IVF, antibiotic therapy, and norepinephrine. EKG 01/05 with SR at 97 bpm with mild nonspecific repolarization changes. Mild troponin elevation noted, of 0.214 and 0.199 ng/ml in setting of hypotension and SELWYN, without clinical symptoms of an acute coronary syndrome. Echo reveals ongoing severe , unchanged compared to 08/2020 outpatient echo, with normal LVEF and normal wall motion. She does have a history of transient apical ballooning LV dysfunction June 2020 felt to be catecholamine induced versus ischemic mediated with presence of coronary disease not excluded. Wall motion however normal today. Continue supportive care. History of Present Illness Attending Physician: Edgardo Lema MD History of Present Illness Pb Liang is a 75 year old female seen in cardiology consultation per the request of Dr Mueller given the patient's history of severe aortic valve stenosis.The patient's primary digital marketing associate is Dr. Stroud of our practice but most recently seen the patient follow-up in October,. Patient is believed to have symptomatic severe aortic valve stenosis. She has been followed by the [facility] valve clinic and ANGE has been considered, but delayed due to Recent noncardiac illnesses including infection. The patient is seen in ICU room 103. She is comfortable and conversant at the time of my conversation . A central line is in place, and she is receiving support with Norepinephrine. Patient describes having presented via the emergency room with symptoms of generalized weakness, nauseousness dysuria. She feels that she has not been urinating much recently. Her admission laboratory studies notable for acute kidney injury, with creatinine of 2.41 increased compared to baseline of deciliter, creatinine repeat this morning was 2.26. Overnight last night, patient was transferred to the intensive care unit due to concerns of hypotension, lowest blood pressure measured in her vital signs occurred at 1:34 AM, 77/62 mmHg. She has since responded well to therapy. Denies any chest discomfort or shortness of breath. Allergies Allergy/AdvReac Type Severity Reaction Status Date / Time adhesive Allergy Intermediate BLISTERS Verified 01/05/21 15:18 WITH STERI-STRIPS Iodinated Contrast Media Allergy Intermediate hive Verified 01/05/21 15:18 [Iodinated Contrast- Oral and IV Dye] naproxen Allergy Intermediate SWELLING - Verified 01/05/21 15:18 TOLERATES ESTEVES-[address] HALL ciprofloxacin Allergy Mild RASH Verified 01/05/21 15:18 Quinolones Allergy Mild NEUROLOGIC Verified 01/05/21 15:18 SYMPTOMS Home Medications Medication Instructions Recorded Confirmed Type allopurinol 100 mg PO BID 06/23/19 01/05/21 History buspirone 5 mg PO TID 06/23/19 01/05/21 History cyanocobalamin (vitamin B-12) 1,000 mcg IM .Q3M 06/23/19 01/05/21 History duloxetine [Cymbalta] 40 mg PO HS 06/23/19 01/05/21 History ondansetron 4 mg PO Q8H PRN 06/23/19 01/05/21 History Flintstones Complete 1 tab PO QAM 08/27/19 01/05/21 History atorvastatin 40 mg PO PM 12/31/19 01/05/21 History bupropion HCl [Wellbutrin SR] 200 mg PO BID 12/31/19 01/05/21 History calcium carbonate [Tums Extra 750 mg PO .PRN PRN 12/31/19 01/05/21 History Strength Smoothies] nystatin 1 appln TOP BID PRN 12/31/19 01/05/21 History omeprazole 20 mg PO QAM 12/31/19 01/05/21 History oxybutynin chloride 5 mg PO BID 12/31/19 01/05/21 History Probiotic 3,000 mmu cells PO QAM 06/21/20 01/05/21 History potassium chloride [K-Tab] 10 meq PO BID 06/21/20 01/05/21 History metoprolol succinate 12.5 mg PO BID 09/25/20 01/05/21 History cholecalciferol (vitamin D3) 50 mcg PO DAILY 12/01/20 01/05/21 History docusate sodium 100 mg PO BID 12/01/20 01/05/21 History loperamide 2 mg PO Q4H PRN 12/01/20 01/05/21 History furosemide 60 mg PO .4XW 12/08/20 01/05/21 History furosemide 80 mg PO .3XW 12/08/20 01/05/21 History oxycodone 5 mg PO Q4 PRN 12/08/20 01/05/21 History methenamine hippurate 1 gram tablet 1 g PO BID #60 tab 12/22/20 01/05/21 Rx sulfamethoxazole 800 1 tab PO BID 7 Days #14 tab 01/02/21 01/05/21 Rx mg-trimethoprim 160 mg tablet Patient History Medical History Aortic stenosis, severe PAULY 0.62-0.66 cm2 per 08/31/2020 echo. Patient seen by [facility] valve clinic 08/14/20 for possible TAVR, workup initiated with repeat echo, but patient subsequently admitted to [facility] again for urologic issues. 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 Per cardiology consult , "Only mild left ventricular dysfunction and suspect stress mediated etiology rather than acute ischemic event. Patient on appropriate beta-sheryl therapy." Apical wall motion abnormality resolved on 08/04/20 ECHO Atrial fibrillation follows with Michael Bui> NO PACER Bleeding hemorrhoids Carotid artery stenosis [place] , 50%, LICA 50-69% by 04/09/19 doppler Chronic diastolic heart failure CKD (chronic kidney disease), stage III Degenerative disc disease Depression Dyslipidemia Factor 5 Leiden mutation, heterozygous recurrent PE/DVT; status post IVC filter placement, on Coumadin Frequent UTI RECENT HOSPITALIZATION GERD (gastroesophageal reflux disease) [place] filter in place History of COPD "MILD" History of esophageal disorder esophageal diverticulum History of peripheral neuropathy bilateral feet History of stress incontinence Hx of cancer of uterus diagnosed 03/2019---radiation only Hx of gout Hx of iron deficiency anemia Hypertension Intestinal disorder post op malabsorption Non-ST elevation MN (NSTEMI) In setting of acute illness (urosepsis 2/2 obstructing stone) 06/21/20 On anticoagulant therapy warfarin daily NICOLASA on CPAP Pes planus Post traumatic stress disorder Pulmonary embolism hx of bilateral ~2003 2/2 FFL Sleep apnea CPAP Spinal stenosis Stroke 06/03/2019 after I&D left hip--vision loss in left eye--no neurologist Vision abnormalities r peripheral vision loss( posterior ischemic optic neuropathyleft eye), left side altered vision like looking through a screen door Weakness Wheelchair dependence Surgical History H/O cystoscopy 06/23/20 and 07/20/20 [facility] History of arthroplasty of left hip 2006 @ [facility]--infected after, multiple sx's History of biopsy of bladder benign History of colonoscopy with polypectomy History of incision and drainage 05/2019 of left hip History of left hip replacement 03/2019 @ [facility] [place] History of left shoulder replacement History of right hip replacement 2005 @ [facility] History of tonsillectomy and adenoidectomy History of tooth extraction Hx of gastric bypass 2016 Hx of tubal ligation Hx of umbilical hernia repair mesh inserted S/P colon resection 1984 @ [facility] complete sigmoid removed d/t diverticular disease Family History Mother , age 91 Heart disease Family hx colonic polyps Father , age 42 Factor V deficiency Myocardial infarction Sister No problems noted. Sister Endometrial cancer Brother Family hx colonic polyps Brother , age 50 Meningitis Brother No problems noted. Brother No problems noted. Son No problems noted. Son No problems noted. Son Colon abnormality Son , in his 30 `s , " girl friend over dosed the patients son " Drug overdose Grandfather (Paternal) Family history of diabetes mellitus Family hx of colon cancer Other No family history of adverse response to anesthesia Social History Smoking Status: Former smoker Tobacco Type: Cigarettes Age Started Using Tobacco: 22; packs per day: 0.5; Years Smoked: 25; Cigarettes Per Day: 10; Smoking End Date: 11/02/1999; Second Hand Exposure: No; Do You Dip or Chew Tobacco: No; Hx Alcohol Use: No Hx Substance Use: No Preferred Language: Danish Communication Ability: Effective Visual Impairment: No Limitations Hearing Ability: Normal Char Filter Tank Tender Required: No Beliefs That Will Affect Care: None marital status: / Current Living Situation: Family Current Living Situation Comment: son current occupational status: retired 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 Other Information That Helps Us Care for You: No Feels Safe at Home: Yes Safety Concerns: Feels Safe At This Time Assistive Devices: CPAP Review of Systems Review of Systems: Recent worsening lower extremity edema, subjectively reduce d urine output Physical Exam Physical Exam: Temp Pulse Resp BP Pulse Ox 36.5 C 79 18 120/64 100 01/06/21 11:03 01/06/21 11:03 01/06/21 11:03 01/06/21 11:03 01/06/21 11:03 Constitutional: Chronically ill in appearance without acute distress Respiratory: normal respiratory effort, lungs clear to auscultation Cardiovascular: Heart Sounds: + murmur (II/ SM) Vessels: no JVD Extremities: + edema (1-2 + BL LE edema, knee high SCDs in place) Gastrointestinal (Abdomen): normal bowel sounds, soft, nontender, no hepatosplenomegaly Skin: Ecchymosis of left forearm noted Neurologic: PERRL, EOMI, accommodation nl, no face palsy, no dysarthria Results & Data ([facility]) Vital Signs (Past 12 Hours) Vital Signs Temp Pulse Resp BP Pulse Ox 01/06/21 11:03 36.5 C 79 18 120/64 100 01/06/21 10:33 36.4 C L 77 20 122/64 100 01/06/21 10:03 36.4 C L 78 19 117/63 100 01/06/21 09:33 36.4 C L 84 118/66 100 01/06/21 09:03 36.4 C L 77 23 119/64 100 01/06/21 08:19 36.4 C L 79 15 112/68 100 01/06/21 08:05 36.4 C L 85 21 109/55 L 01/06/21 08:00 82 01/06/21 07:35 36.3 C L 89 16 90/68 L 100 01/06/21 07:04 36.2 C L 81 15 92/55 L 100 01/06/21 06:50 36.2 C L 80 15 92/50 L 100 01/06/21 06:34 36.1 C L 79 17 93/60 L 100 01/06/21 06:19 36.1 C L 85 17 104/59 L 100 01/06/21 06:04 36.1 C L 82 18 107/58 L 100 01/06/21 05:49 36.0 C L 84 19 109/62 100 01/06/21 05:34 36.0 C L 83 20 92/58 L 100 01/06/21 05:30 36.0 C L 81 15 86/47 L 99 01/06/21 05:19 36.0 C L 77 13 86/46 L 100 01/06/21 05:04 35.9 C L 78 16 86/49 L 100 01/06/21 04:49 35.9 C L 74 18 98/53 L 100 01/06/21 04:34 35.9 C L 75 16 96/57 L 100 01/06/21 04:30 36.7 C 01/06/21 04:19 35.9 C L 72 18 97/52 L 100 01/06/21 04:04 36.0 C L 81 15 94/61 L 100 01/06/21 03:49 36.0 C L 82 14 96/52 L 100 01/06/21 03:34 36.0 C L 84 14 103/53 L 01/06/21 03:19 36.1 C L 82 16 100/50 L 100 01/06/21 03:04 36.1 C L 84 12 107/65 100 01/06/21 02:49 36.0 C L 77 14 101/58 L 100 01/06/21 02:34 36.0 C L 79 12 104/49 L 100 01/06/21 02:19 36.1 C L 73 15 106/46 L 100 01/06/21 02:04 36.1 C L 75 19 110/47 L 100 01/06/21 01:49 79 19 105/55 L 100 01/06/21 01:35 81 14 92/63 L 100 01/06/21 01:34 80 12 77/62 L 100 01/06/21 01:19 80 15 96/52 L 100 01/06/21 01:04 80 19 97/50 L 100 01/06/21 00:49 84 18 100/54 L 100
[2021-01-06] MEDS: ALBUMIN 25% 12.5 GM/50 ML VIAL IV SCH ×2 (14:18→21:36)
--- NOTE | 2021-01-06 15:39 | Nephrology Consultation ---
Date of Consultation January 06, 2021 Assessment & Plan (1) SELWYN (acute kidney injury): Stagee 2 oliguric SELWYN more than likely from ATN; but her case does not yet make much sense clinically >> she is oliguric w/ marked anasarca; her hypotension has not been protracted or severe enough to cause this degree of oliguria; her creatinine elevation may be explained simply from bactrim use but not the oliguria; some mild hypokalemia but chemistries generally ok for now; proteinuria assessment is probably meaningless in a patient like this w/ her chronic mccurdy and chronically inflamed urine - will check it nevertheless; ; note of course some creatinien elevation may reflect bactrim use -check CK and repeat BMP now; ordered these and prot/creat ratio -some concern she will need dialysis potentially to manage anasarca if she remains oliguric but given recurrent infections/septic picture hope to avoid this Present on Admission?: Yes (2) Oliguria: given at least 3 episodes of acute obstruction from stones in past 3 months and now L back pain. do of course note no obstruction seen on imaging last evening but her oliguria is not explained by hypotension, by degree of creatinine elevation (though I fully expect creatinine to worsen before it stabilizes) >> after 3+ L resuscitation obstruction ? more visible now >ordered repeat renal u/s and have low threshold to involve or at least update urology Present on Admission?: Yes (3) Recurrent UTI (urinary tract infection): >recommend consult [facility] infectious diseases if not already done <<they have records of prior infections -cont meropenem, f/u cultures Present on Admission?: Yes (4) Sepsis associated hypotension: s/p 3+ L fluid resuscitation; preserved EF; pressor dependent currently and on 80 ml/hr of D5NS. no readings consistently below 90 systolic (was in 90s for about 5 hrs overnight) but generally 110s. -continue to wean pressor as tolerated though in her case w/ her volume overload, low dose pressor if tolerated may be preferable to excessive IV fluid amounts -current IVF ok for now but low threshold to down titrate Present on Admission?: Yes (5) Anasarca: for the moment treating sepsis takes priority but OK from renal standpoint if BP stabilizes and repeat bmp ok to try lasix c/b profound hypoalbuminemia -agree w/ <2 gm daily Na diet; consider protein supplements and eval for malnutrition Present on Admission?: Yes History of Present Illness Reason for Consultation: acute renal failure Requesting Physician: Dr Mueller Attending Physician: Edgardo Lema MD History of Present Illness 75 y/o F whom I'm asked to see for SELWYN after she was admitted yesterday for sepsis suspected of urinary origin. She presented w/ several concerns including nausea, decreased po, a few episodes of emesis, decreased mccurdy output, and worsening LE edema not responsive to lasix. Her baseline creatinine is 1.1-1.2 but is quite variable. Her admitting creatinine was 2.3, up to 2.4 today. She was recently started on bactrim for UTI on 01/02 approximately but she took only 2 doses before stopping. Her complex PMH includes severe aortic stenosis for which TAVR is tentatively planned, hypercoagulable state w/ DVT/PE s/p IVC filter on coumadin, PVD, diet controlled DM, NICOLASA on bipap, hx of Sarahy en Y gastric bypass 2016 as well as partial colectomy, hx of endometrial CA s/p XRT, s/p L hip replacement c/b 2018 pseudomonal infection and s/p hardware removal/spacer placements/then abtc bead placement, chronically w/c bound and w/ severe deconditioning after multiple hospital stays. She has a chronic mccurdy and is s/p Dec 01-2020 admission here for recurrent UTI with MDR Morganella secondary to obstructive uropathy status post left ureteral stent placement with several weeks of ertapenem planned at that time. She has had recurrent obstruction requiring multiple urologic interventions since September for management of kidney stones. She has also had recurrent/intermiiten GI bleeding: s/p late Sep 2020 colonoscopy (inconclusive d/t poor prep), and with recent 12/08-12/14 admission here also for colitis w/ diarrrhea and hematochezia. OP colonoscopy w/ prolonged/intensive prep was planned after recent d/c. She states that today she feels overall improved in terms of GI sx; does endorse low L back pain, ongoing edema BLE. No dyspnea. From 6 am until noon (shortly before I evaluated her today) she made about 55 mL of urine, despite 3+ L of crystalloid resuscitation; from noon to 1600 made 26 mL urine. She is currently on D5W w/ NS at 80 ML hourly and has had 40 mEq PO K today. Requiring levophed support at the time of my evaluation. Also on meropenem. Allergies Allergy/AdvReac Type Severity Reaction Status Date / Time adhesive Allergy Intermediate BLISTERS Verified 01/05/21 15:18 WITH STERI-STRIPS Iodinated Contrast Media Allergy Intermediate hive Verified 01/05/21 15:18 [Iodinated Contrast- Oral and IV Dye] naproxen Allergy Intermediate SWELLING - Verified 01/05/21 15:18 TOLERATES ESTEVES-[address] HALL ciprofloxacin Allergy Mild RASH Verified 01/05/21 15:18 Quinolones Allergy Mild NEUROLOGIC Verified 01/05/21 15:18 SYMPTOMS Home Medications Medication Instructions Recorded Confirmed Type allopurinol 100 mg PO BID 06/23/19 01/05/21 History buspirone 5 mg PO TID 06/23/19 01/05/21 History cyanocobalamin (vitamin B-12) 1,000 mcg IM .Q3M 06/23/19 01/05/21 History duloxetine [Cymbalta] 40 mg PO HS 06/23/19 01/05/21 History ondansetron 4 mg PO Q8H PRN 06/23/19 01/05/21 History Flintstones Complete 1 tab PO QAM 08/27/19 01/05/21 History atorvastatin 40 mg PO PM 12/31/19 01/05/21 History bupropion HCl [Wellbutrin SR] 200 mg PO BID 12/31/19 01/05/21 History calcium carbonate [Tums Extra 750 mg PO .PRN PRN 12/31/19 01/05/21 History Strength Smoothies] nystatin 1 appln TOP BID PRN 12/31/19 01/05/21 History omeprazole 20 mg PO QAM 12/31/19 01/05/21 History oxybutynin chloride 5 mg PO BID 12/31/19 01/05/21 History Probiotic 3,000 mmu cells PO QAM 06/21/20 01/05/21 History potassium chloride [K-Tab] 10 meq PO BID 06/21/20 01/05/21 History metoprolol succinate 12.5 mg PO BID 09/25/20 01/05/21 History cholecalciferol (vitamin D3) 50 mcg PO DAILY 12/01/20 01/05/21 History docusate sodium 100 mg PO BID 12/01/20 01/05/21 History loperamide 2 mg PO Q4H PRN 12/01/20 01/05/21 History furosemide 60 mg PO .4XW 12/08/20 01/05/21 History furosemide 80 mg PO .3XW 12/08/20 01/05/21 History oxycodone 5 mg PO Q4 PRN 12/08/20 01/05/21 History methenamine hippurate 1 gram tablet 1 g PO BID #60 tab 12/22/20 01/05/21 Rx sulfamethoxazole 800 1 tab PO BID 7 Days #14 tab 01/02/21 01/05/21 Rx mg-trimethoprim 160 mg tablet Patient History Medical History (Updated 01/06/21 @ 16:44 by Rissa Houser MD, PhD) Aortic stenosis, severe PAULY 0.62-0.66 cm2 per 08/31/2020 echo. Patient seen by [facility] valve clinic 08/14/20 for possible TAVR, workup initiated with repeat echo, but patient subsequently admitted to [facility] again for urologic issues. 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 Per cardiology consult , "Only mild left ventricular dysfunction and suspect stress mediated etiology rather than acute ischemic event. Patient on appropriate beta-sheryl therapy." Apical wall motion abnormality resolved on 08/04/20 ECHO Atrial fibrillation follows with Michael Bui> NO PACER Bleeding hemorrhoids Carotid artery stenosis [place] , 50%, LICA 50-69% by 04/09/19 doppler Chronic diastolic heart failure CKD (chronic kidney disease), stage III Degenerative disc disease Depression Dyslipidemia Factor 5 Leiden mutation, heterozygous recurrent PE/DVT; status post IVC filter placement, on Coumadin Frequent UTI RECENT HOSPITALIZATION GERD (gastroesophageal reflux disease) [place] filter in place History of COPD "MILD" History of esophageal disorder esophageal diverticulum History of peripheral neuropathy bilateral feet History of stress incontinence Hx of cancer of uterus diagnosed 03/2019---radiation only Hx of gout Hx of iron deficiency anemia Hypertension Intestinal disorder post op malabsorption Non-ST elevation DE (NSTEMI) In setting of acute illness (urosepsis 2/2 obstructing stone) 06/21/20 Obesity On anticoagulant therapy warfarin daily NICOLASA on CPAP Pes planus Post traumatic stress disorder Pulmonary embolism hx of bilateral ~2003 2/2 FFL Sleep apnea CPAP Spinal stenosis Stroke 06/03/2019 after I&D left hip--vision loss in left eye--no neurologist Vision abnormalities r peripheral vision loss( posterior ischemic optic neuropathyleft eye), left side altered vision like looking through a screen door Weakness Wheelchair dependence Surgical History (Updated 01/06/21 @ 16:23 by Rissa Houser MD, PhD) H/O cystoscopy 06/23/20 and 07/20/20 [facility] History of arthroplasty of left hip 2006 @ [facility]--infected after, multiple sx's History of biopsy of bladder benign History of colonoscopy with polypectomy History of incision and drainage 05/2019 of left hip History of left hip replacement 03/2019 @ [facility] History of left shoulder replacement History of right hip replacement 2005 @ [facility] History of tonsillectomy and adenoidectomy History of tooth extraction Hx of gastric bypass 2016; Sarahy en Y Hx of tubal ligation Hx of umbilical hernia repair mesh inserted S/P colon resection 1984 @ [facility] complete sigmoid removed d/t diverticular disease Family History Mother , age 91 Heart disease Family hx colonic polyps Father , age 42 Factor V deficiency Myocardial infarction Sister No problems noted. Sister Endometrial cancer Brother Family hx colonic polyps Brother , age 50 Meningitis Brother No problems noted. Brother No problems noted. Son No problems noted. Son No problems noted. Son Colon abnormality Son , in his 30 `s , " girl friend over dosed the patients son " Drug overdose Grandfather (Paternal) Family history of diabetes mellitus Family hx of colon cancer Other No family history of adverse response to anesthesia Social History Smoking Status: Former smoker Tobacco Type: Cigarettes Age Started Using Tobacco: 22; packs per day: 0.5; Years Smoked: 25; Cigarettes Per Day: 10; Smoking End Date: 11/02/1999; Second Hand Exposure: No; Do You Dip or Chew Tobacco: No; Hx Alcohol Use: No Hx Substance Use: No Preferred Language: Polish Communication Ability: Effective Visual Impairment: No Limitations Hearing Ability: Normal Getter Filler Required: No Beliefs That Will Affect Care: None marital status: / Current Living Situation: Family Current Living Situation Comment: son current occupational status: retired 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 Other Information That Helps Us Care for You: No Feels Safe at Home: Yes Safety Concerns: Feels Safe At This Time Assistive Devices: CPAP Review of Systems Review of Systems: All systems reviewed & are unremarkable except as noted in HPI & below Genitourinary: concern of decreased mccurdy output Physical Exam Constitutional: + morbidly obese, + frail appearing, cooperative and comfortable; no acute distress Eyes: EOM intact bilaterally ENMT: Ears: no external ear abnormality Nose: no external nose abnormality Mouth: + dry oral mucous membranes Neck: no nuchal rigidity Respiratory: normal respiratory effort Auscultation: lungs clear to auscultation bilaterally and + diminished lung sounds Cardiovascular: Rate/Rhythm: regular rate and regular rhythm Extremities: + edema (2-3+) Gastrointestinal (Abdomen): Inspection/Auscultation: normal bowel sounds Percussion/Palpation: abdomen soft; abdomen nontender Musculoskeletal: Extremities: + abnormal strength (generalized weakness, gracie L side) Skin: no rashes, warm and dry Neurologic: L sided weakness; fluent speech, no tremor Psychiatric: Orientation: alert and oriented x 3 Genitourinary: mccurdy w/ scant ji cloudy urine Results & Data ([facility]) Vital Signs (Past 12 Hours) Vital Signs Temp Pulse Resp BP Pulse Ox 01/06/21 13:03 36.6 C 83 17 118/66 100 01/06/21 12:33 36.6 C 86 11 L 116/62 100 01/06/21 12:03 36.5 C 81 9 L 122/64 100 01/06/21 11:33 36.5 C 85 19 123/67 96 01/06/21 11:03 36.5 C 79 18 120/64 100 01/06/21 10:33 36.4 C L 77 20 122/64 100 01/06/21 10:03 36.4 C L 78 19 117/63 100 01/06/21 09:33 36.4 C L 84 118/66 100 01/06/21 09:03 36.4 C L 77 23 119/64 100 01/06/21 08:19 36.4 C L 79 15 112/68 100 01/06/21 08:05 36.4 C L 85 21 109/55 L 01/06/21 08:00 82 01/06/21 07:35 36.3 C L 89 16 90/68 L 100 01/06/21 07:04 36.2 C L 81 15 92/55 L 100 01/06/21 06:50 36.2 C L 80 15 92/50 L 100 01/06/21 06:34 36.1 C L 79 17 93/60 L 100 01/06/21 06:19 36.1 C L 85 17 104/59 L 100 01/06/21 06:04 36.1 C L 82 18 107/58 L 100 01/06/21 05:49 36.0 C L 84 19 109/62 100 01/06/21 05:34 36.0 C L 83 20 92/58 L 100 01/06/21 05:30 36.0 C L 81 15 86/47 L 99 01/06/21 05:19 36.0 C L 77 13 86/46 L 100 01/06/21 05:04 35.9 C L 78 16 86/49 L 100 01/06/21 04:49 35.9 C L 74 18 98/53 L 100 01/06/21 04:34 35.9 C L 75 16 96/57 L 100 01/06/21 04:30 36.7 C 01/06/21 04:19 35.9 C L 72 18 97/52 L 100 01/06/21 04:04 36.0 C L 81 15 94/61 L 100 01/06/21 03:49 36.0 C L 82 14 96/52 L 100 01/06/21 03:34 36.0 C L 84 14 103/53 L 100 Laboratory Results 01/06/21 12:07 01/06/21 04:36 UA turbid orange urine 3+ prot/blood, +nitrates, 2+ bilirubin, >30 W/RBC, 4+ bacteria blood and urine cxs pending, NGTD Diagnostic Findings CT abd/pelvis non con FINDINGS: Trace left pleural effusion has improved. Small hiatus hernia is again noted. There is a trace pericardial effusion. The unenhanced liver, gallbladder, spleen, and pancreas unremarkable. Chronic thickening of the adrenal glands also remains unchanged. No pneumoperitoneum. No pneumatosis. There is a right total arthroplasty. Chronic deformity and dislocation within the left hip is again noted. Severe body wall edema which has progressed. There are few punctate left renal calculi, unchanged. There is again noted a duplicated left renal collecting system with the left ureteral stent in the lower pole moiety. There appears to be a punctate stone remaining within the mid left ureter. This is unchanged in position. This is best seen on image 224. The left ureteral stent is in good position. Mild bladder wall thickening with adjacent fat stranding. Bladder is completely decompressed by Mccurdy catheter. Small of gas within the bladder lumen is likely due to the catheterization. Prior rectosigmoid anastomosis. A few colonic diverticula. No evidence for acute diverticulitis. Prior ventral hernia repair. The uterus is unremarkable. No evidence for bowel obstruction. An IVC filter is noted. No retroperitoneal lymphadenopathy. The left-sided hydronephrosis has resolved. Mild pericolonic fat stranding at the sigmoid colon is noted. The colonic wall thickening has essentially resolved in the interval. Stable punctate bladder calculi. IMPRESSION: 1. Interval resolution of the left-sided hydronephrosis. The left ureteral stent is unchanged in position. There remains a punctate mid left ureteral stone adjacent to the ureteral stent. 2. Stable left-sided nephrolithiasis. Stable punctate bladder calculi. 3. Near complete resolution of the colitis with only mild pericolonic fat stranding remaining at the mid sigmoid colon. 4. No evidence for bowel obstruction. 5. Severe body wall edema which has progressed. 6. Cholelithiasis. 7. Trace left pleural effusion has also improved. 8. Persistent bladder wall thickening. 9. Additional findings as described above. CXR no acute process today TTE today EF 55%, no WMA; severe
[2021-01-06 18:24] LABS: BUN Creatinine Ratio 19.3 (10-20); Calcium 6.7 mg/dl (8.5-10.1); Creatinine Clr Calc Pharmacy 23.7 ml/min; Est GFR (African American) 21.9; Est GFR (Non-African American) 18.9; Potassium 3.8 mmol/L (3.5-5.1)
[2021-01-06 18:57] LABS: Creatinine Urine Random 35.1 mg/dl; Protein Creatinine Ratio Urine 3.3 (0-0.2); Total Protein Urine Random 115.3 mg/dl (0-11.9)
[2021-01-06] MEDS: ATORVASTATIN 40 MG TAB PO SCH (19:45)
[2021-01-06] MEDS: DULoxetine HCL 20 MG CAP PO SCH (19:46)
[2021-01-06] MEDS: NOREPINEPHRINE/D5W 8 MG/508 ML BAG IV SCH (19:56)
--- NOTE | 2021-01-06 20:43 | Ultrasound Report ---
ULTRASOUND KIDNEYS AND BLADDER CLINICAL HISTORY: Oliguria. COMPARISON STUDY: Abdominal CT dated 01/05/2021. TECHNIQUE: Real-time, grayscale, and color flow sonography of the kidneys and bladder is performed. I mages are reviewed in the transverse and longitudinal planes. The examination is degraded by large elias dy habitus, patient movement, and overlying bowel gas. FINDINGS: Kidneys: The kidneys demonstrate mild cortical atrophy. Echotexture is normal. The right kidney measu res 9.7 cm in length and the left kidney measures 9.9 cm in length. There is no hydronephrosis. A lef t ureteral stent is in place. No shadowing renal calculi are identified. A 1.3 cm simple cyst is inci dentally noted in the left lower pole. There is no sonographic evidence of contour deforming renal ma ss lesion. No perinephric fluid is identified. Bladder: The bladder is decompressed around a Ramírez catheter and could not be evaluated. IMPRESSION: 1. The kidneys demonstrate mild cortical atrophy and are without hydronephrosis. 2. A left ureteral stent is in place. 3. The bladder was decompressed and could not be evaluated. ACT 112: Negative or not required by law. Electronically signed by: Srinivasan Finn M.D. 01/06/2021 8:42 PM
[2021-01-07] MEDS ORDERED: FUROSEMIDE 40 MG in SYRINGE 0 ML IV ONE (04:39)
[2021-01-07 05:07] LABS: Eosinophils # (auto) 0.03 K/uL (0-0.5); Eosinophils % (auto) 0.2 %; Hematocrit (blood only) 25.6 % (37-47); Hemoglobin 8.3 g/dL (12.0-16.0); Immature Granulocytes # (auto) 0.04 K/uL (0.00-0.02); Immature Granulocytes % (auto) 0.3 %; Lymphocytes # (auto) 0.53 K/uL (1.2-3.4); Lymphocytes % (auto) 4.2 %; Mean Corpuscular Hemoglobin 28.1 pg (25-34); Mean Corpuscular Hgb Conc 32.4 g/dL (32-36); Mean Corpuscular Volume 86.8 fL (80-100); Mean Platelet Volume 10.2 fL (7.4-10.4); Monocytes # (auto) 0.31 K/uL (0.11-0.59); Monocytes % (auto) 2.5 %; Neutrophils # (auto) 11.67 K/uL (1.4-6.5); Neutrophils % (auto) 92.8 %; Platelet Count 113 K/uL (130-400); RDW Coefficient of Variation 18.6 % (11.5-14.5); RDW Standard Deviation 59.6 fL (36.4-46.3); Red Blood Count 2.95 M/uL (4.2-5.4); White Blood Count 12.58 K/uL (4.8-10.8)
[2021-01-07] MEDS ORDERED: FUROSEMIDE 40 MG/4 ML VIAL IV ONE (05:15)
[2021-01-07 05:32] LABS: BUN Creatinine Ratio 19.8 (10-20); Creatinine Clr Calc Pharmacy 24.5 ml/min; Est GFR (African American) 22.8; Est GFR (Non-African American) 19.6; Potassium 3.6 mmol/L (3.5-5.1)
[2021-01-07] MEDS: D5W AND NSS 1,000 ML IV SCH (05:46)
[2021-01-07] MEDS: ALBUMIN 25% 12.5 GM/50 ML VIAL IV SCH (05:46)
[2021-01-07] MEDS ORDERED: POTASSIUM CHLORIDE 20 MEQ/15 ML UDC PO STA (05:55)
[2021-01-07] MEDS: INSULIN ASPART 100 UNITS/ML 3 ML PEN SC SCH ×4 (07:54→21:16)
[2021-01-07] MEDS: CHOLECALCIFEROL 1,000 UNITS 25 MCG TAB PO SCH (07:56)
[2021-01-07] MEDS: buPROPion SR 100 MG TABCR PO SCH ×2 (07:56→20:42)
[2021-01-07] MEDS: OXYBUTYNIN CHLORIDE 5 MG TAB PO SCH ×2 (07:56→20:42)
[2021-01-07] MEDS: busPIRone 5 MG TAB PO SCH ×3 (07:56→20:41)
[2021-01-07] MEDS: PANTOprazole 40 MG TAB PO SCH (07:57)
[2021-01-07] MEDS: ADVANCED PROBIOTIC 1250 MG CAPSULE PO SCH (07:57)
[2021-01-07] MEDS: MEROPENEM 500 MG in SYRINGE 0 ML IV SCH ×2 (07:58→20:41)
[2021-01-07] MEDS: oxyCODONE HCL IR 5 MG TAB (IMMEDIATE RELEASE) PO PRN ×3 (09:02→21:12)
--- NOTE | 2021-01-07 09:42 | Critical Care Progress Note ---
Date of Service January 07, 2021 Assessment & Plan (1) Shock: Reason Critically Ill: 75-year-old female presents to the ICU with hypotension/shock from potential UTI source, now requiring vasopressor support. Neuro - Mood disorder/anxiety depression: Continue home med regimen bupropion, b uspirone, Cymbalta Cardiac - Septic shock patient received IV fluid 3 L crystalloid with systolic blood pressures remaining in 70s, SELWYN and elevated LFTs also noted on chemistry -Most likely secondary to septic shock as patient with persistent multidrug- resistant UTI -Random cortisol cortisol 60 appropriate, no indication for steroids -Mild elevation of troponin 0.214--> 0.199, no ST elevation on EKG. likely type II NE, monitor -Echo 01/06/2021 EF 55-60%, moderate pulmonary hypertension severe . -Continue with vasopressor support and keep MAP greater than 65 CVA, PVDcontinue statin HTNcurrently on hold Severe AScardiology on board Respiratory - History of OSABiPAP HS 26/10 home settings Continue with O2 supplementation to keep oxygen saturation between 88-92% BiPAP nightly and as needed shortness of breath GI - Continue with p.o. diet Transaminitis mild, appears to be chronic. Hypotension may be contributing. Liver unremarkable on CT imaging. -Monitor GERDcontinue PPI RENAL/LYTES - SELWYN on CKD stage III -Baseline creatinine 1.9-1 -Hydronephrosis resolved on CT imaging and ureteral stent in place -Most likely prerenal this patient presents with hypovolemia/hypotension -Keep MAP greater than 65 -Avoid nephrotoxins and renally adjust medication -Strict in and out -ATN might be playing a role High anion gap metabolic acidosis -Likely secondary to elevated BUN -Lactic acidosis resolved -Monitor - UTI/cystitisFoley inserted for strict I's and O's -Bladder wall thickening noted on CT abdomen -See treatment in ID below History of ureteric cancerstatus post radiation ENDO - DM type IImost recent A1c of 4.6 and hypoglycemic on this admission. -Sliding scale per protocol, and ICU hyperglycemic protocol TSH within normal limit HEME - -Drop in hemoglobin compared to the time of presentation -This is likely dilution from given IV fluids -Patient's baseline is 8.5 -Monitor H&H transfuse if needed Factor V Leyden mutation with history of DVT/PEs/p IVC filter -No longer on Coumadin due to recurrent hematochezia ID - Sepsispatient presents with hypotension, leukocytosis, and elevated procalcitonin with likely source from recurrent UTI with Morganella which was sensitive to cefepime and Carbapenem -Follow blood cultur. urine culture growing Gram -ve bacilli -Continue with antibiotic --Prophylaxis VTE: IPC's GI: Protonix Lines: Right IJ, positive Ramírez Diet: Cardiac renal Plan: In/out: +2.2 L, urine output 467 mL Patient is + 8 liters since admission. Her saturation is well on RA and lungs sound good. Lasix 40mg given. IV fluids discontinued. Basilar urine output will think about giving another dose of Lasix later today. Patient urine output has started to picking supervisor. She is making up to 125ml per hour of urine output. No emergent need for dialysis. I think with creatinine not worsening and acceptable electrolytes with improving urine output there will be no need for dialysis. Possibility of dialysis in the future still stands. Try to wean off vasopressors. Patient complains of the right upper quadrant tenderness. There is no Anne's. I will get a right upper quadrant ultrasound. Pulse was a bit elevated at presentation but it was within normal limits along with AST and ALT on 01/06/2021. Urine culture is growing gram-negative bacilli. Continue with meropenem till we have sensitivities I have personally spent 35 minutes of critical care time in the direct management of this patient. This is a life/limb threatening event. This includes time spent evaluating patient, direct bedside care, chart review, placing orders, interpretation of diagnostic studies, discussion with consultants, patient, and family members, as well as other required patient management activities. This time is exclusive of all separately billable procedures, and teaching time and separate from and in addition to any other critical care service time. Please note the above document was generated using voice recognition software. It may contain grammatical, syntax or spelling errors. (2) Sepsis: (3) SELWYN (acute kidney injury): (4) Recurrent UTI (urinary tract infection): Admission and Anticipated Discharge Date Admission Date: January 05, 2021 Subjective Patient seen and examined at bedside. No acute distress, no adverse events overnight. She used her BiPAP overnight. Denies any nausea or vomiting. States that she feels better compared to when she came to the hospital. Complains of mild right upper quadrant abdominal pain. Denies any heartburn. No chest pain, no shortness of breath. Review of Systems Review of Systems: All systems reviewed & are unremarkable except as noted in Subjective Physical Exam Physical Exam: Constitutional: No acute distress HEENT: EOMI, PERRLA Respiratory system: Good air entry bilaterally, no wheeze, no rhonchi, mild crackles bilateral lower lobes CVS: S1-S2 positive, positive 3 out of 6 systolic ejection murmur appreciated best at the aorta Abdomen: Soft, mild right upper quadrant tenderness, no rebound, nondistended, positive bowel sounds x4, obese Extremities: +2 pulses bilaterally radialis/ dorsalis pedis, no cyanosis, +2 pitting edema bilateral lower extremity, +1 pitting edema bilateral upper extremity, anasarca, ecchymosis appreciated bilateral upper extremities dorsal surface Neuro: Awake alert oriented x3 Psych: Normal mood and affect G/U: Positive Ramírez Skin: no rashes, warm and dry Lymphatic: no cervical or axillary lymphadenopathy Results & Data Results & Data ([facility]) Vital Signs (Past 12 Hours) Vital Signs Temp Pulse Resp BP Pulse Ox 01/07/21 08:28 36.5 C 98 H 18 93/56 L 100 01/07/21 07:29 36.3 C L 83 18 103/57 L 100 01/07/21 07:00 89 01/07/21 03:28 36.3 C L 86 19 99/60 L 100 01/07/21 02:28 36.3 C L 90 15 114/64 100 01/07/21 01:50 87 14 100 01/07/21 01:28 36.3 C L 93 H 12 103/67 100 01/07/21 00:28 36.3 C L 86 10 L 118/74 100 01/06/21 23:46 94 H 01/06/21 23:40 36.5 C 87 15 100 01/06/21 23:30 36.5 C 90 15 100 01/06/21 23:28 36.5 C 89 14 101/59 L 100 01/06/21 22:28 36.5 C 88 17 93/58 L 100 01/06/21 22:11 91 H 14 100 01/06/21 21:45 88 01/07/21 04:34 01/07/21 04:34 Coding Level of Care Code Critical Care 1st 30-74 mins Diagnoses Shock R57.9 Sepsis A41.9; R65.20 Sepsis acute organ dysfunction status: with acute organ dysfunction Sepsis type: sepsis due to unspecified organism Severe sepsis acute organ dysfunction type: unspecified Severe sepsis shock status: unspecified SELWYN (acute kidney injury) N17.9 Recurrent UTI (urinary tract infection) N39.0 Time Spent (min) 35 (1) Sepsis Sepsis acute organ dysfunction status: with acute organ dysfunction Sepsis type: sepsis due to unspecified organism Severe sepsis acute organ dysfunction type: unspecified Severe sepsis shock status: unspecified Qualified Code(s): A41.9 - Sepsis, unspecified organism; R65.20 - Severe sepsis without septic shock
--- NOTE | 2021-01-07 09:52 | Urology Consultation ---
Date of Consultation January 07, 2021 Assessment & Plan (1) Recurrent UTI (urinary tract infection): Patient known to service secondary to hydronephrosis; history of kidney stones; history of UTIs No plan for surgical intervention as her stent seems to be in appropriate position She is being treated from an ID standpoint She has renal failure which is attributed to ATN, does not appear to be obstructive Given her acute illness I do not believe stent manipulation or exchange or removal would be appropriate nor indicated Plan to have her recover further from her current episode before removing the stent We will follow from a distance, if things change with her status please let us k now History of Present Illness Attending Physician: Edgardo Lema MD History of Present Illness 75-year-old female known to our service through a series of admissions over the past 6 months She has an indwelling left ureteral stent She was admitted with anasarca, renal failure, evidence of infection She has had consults from nephrology, infectious disease, cardiology She has had imaging in the form of CT and then follow-up ultrasound since admission Both of these failed to show any hydronephrosis, they do demonstrate a well- positioned left ureteral stent She does not have urinary retention She has no right-sided hydronephrosis She had very limited urine output on admission, this is gradually improving Presumption of ATN? Does not seem to demonstrate any signs of obstructive uropathy Allergies Allergy/AdvReac Type Severity Reaction Status Date / Time adhesive Allergy Intermediate BLISTERS Verified 01/05/21 15:18 WITH STERI-STRIPS Iodinated Contrast Media Allergy Intermediate hive Verified 01/05/21 15:18 [Iodinated Contrast- Oral and IV Dye] naproxen Allergy Intermediate SWELLING - Verified 01/05/21 15:18 TOLERATES ESTEVES-[address] HALL ciprofloxacin Allergy Mild RASH Verified 01/05/21 15:18 Quinolones Allergy Mild NEUROLOGIC Verified 01/05/21 15:18 SYMPTOMS Home Medications Medication Instructions Recorded Confirmed Type allopurinol 100 mg PO BID 06/23/19 01/05/21 History buspirone 5 mg PO TID 06/23/19 01/05/21 History cyanocobalamin (vitamin B-12) 1,000 mcg IM .Q3M 06/23/19 01/05/21 History duloxetine [Cymbalta] 40 mg PO HS 06/23/19 01/05/21 History ondansetron 4 mg PO Q8H PRN 06/23/19 01/05/21 History Flintstones Complete 1 tab PO QAM 08/27/19 01/05/21 History atorvastatin 40 mg PO PM 12/31/19 01/05/21 History bupropion HCl [Wellbutrin SR] 200 mg PO BID 12/31/19 01/05/21 History calcium carbonate [Tums Extra 750 mg PO .PRN PRN 12/31/19 01/05/21 History Strength Smoothies] nystatin 1 appln TOP BID PRN 12/31/19 01/05/21 History omeprazole 20 mg PO QAM 12/31/19 01/05/21 History oxybutynin chloride 5 mg PO BID 12/31/19 01/05/21 History Probiotic 3,000 mmu cells PO QAM 06/21/20 01/05/21 History potassium chloride [K-Tab] 10 meq PO BID 06/21/20 01/05/21 History metoprolol succinate 12.5 mg PO BID 09/25/20 01/05/21 History cholecalciferol (vitamin D3) 50 mcg PO DAILY 12/01/20 01/05/21 History docusate sodium 100 mg PO BID 12/01/20 01/05/21 History loperamide 2 mg PO Q4H PRN 12/01/20 01/05/21 History furosemide 60 mg PO .4XW 12/08/20 01/05/21 History furosemide 80 mg PO .3XW 12/08/20 01/05/21 History oxycodone 5 mg PO Q4 PRN 12/08/20 01/05/21 History methenamine hippurate 1 gram tablet 1 g PO BID #60 tab 12/22/20 01/05/21 Rx sulfamethoxazole 800 1 tab PO BID 7 Days #14 tab 01/02/21 01/05/21 Rx mg-trimethoprim 160 mg tablet Patient History Medical History Aortic stenosis, severe PAULY 0.62-0.66 cm2 per 08/31/2020 echo. Patient seen by [facility] valve clinic 08/14/20 for possible TAVR, workup initiated with repeat echo, but patient subsequently admitted to [facility] again for urologic issues. 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 Per cardiology consult , "Only mild left ventricular dysfunction and suspect stress mediated etiology rather than acute ischemic event. Patient on appropriate beta-sheryl therapy." Apical wall motion abnormality resolved on 08/04/20 ECHO Atrial fibrillation follows with Michael Bui> NO PACER Bleeding hemorrhoids Carotid artery stenosis [place] , 50%, LICA 50-69% by 04/09/19 doppler Chronic diastolic heart failure CKD (chronic kidney disease), stage III Degenerative disc disease Depression Dyslipidemia Factor 5 Leiden mutation, heterozygous recurrent PE/DVT; status post IVC filter placement, on Coumadin Frequent UTI RECENT HOSPITALIZATION GERD (gastroesophageal reflux disease) [place] filter in place History of COPD "MILD" History of esophageal disorder esophageal diverticulum History of peripheral neuropathy bilateral feet History of stress incontinence Hx of cancer of uterus diagnosed 03/2019---radiation only Hx of gout Hx of iron deficiency anemia Hypertension Intestinal disorder post op malabsorption Non-ST elevation DC (NSTEMI) In setting of acute illness (urosepsis 2/2 obstructing stone) 06/21/20 Obesity On anticoagulant therapy warfarin daily NICOLASA on CPAP Pes planus Post traumatic stress disorder Pulmonary embolism hx of bilateral ~12/12 FFL Sleep apnea CPAP Spinal stenosis Stroke 06/03/2019 after I&D left hip--vision loss in left eye--no neurologist Vision abnormalities r peripheral vision loss( posterior ischemic optic neuropathyleft eye), left side altered vision like looking through a screen door Weakness Wheelchair dependence Surgical History H/O cystoscopy 06/23/20 and 07/20/20 [facility] History of arthroplasty of left hip 2006 @ [facility]--infected after, multiple sx's History of biopsy of bladder benign History of colonoscopy with polypectomy History of incision and drainage 05/2019 of left hip History of left hip replacement 03/2019 @ [facility] [place] History of left shoulder replacement History of right hip replacement 2005 @ [facility] History of tonsillectomy and adenoidectomy History of tooth extraction Hx of gastric bypass 2016; [facility] Hx of tubal ligation Hx of umbilical hernia repair mesh inserted S/P colon resection 1984 @ [facility] complete sigmoid removed d/t diverticular disease Family History Mother , age 91 Heart disease Family hx colonic polyps Father , age 42 Factor V deficiency Myocardial infarction Sister No problems noted. Sister Endometrial cancer Brother Family hx colonic polyps Brother , age 50 Meningitis Brother No problems noted. Brother No problems noted. Son No problems noted. Son No problems noted. Son Colon abnormality Son , in his 30 `s , " girl friend over dosed the patients son " Drug overdose Grandfather (Paternal) Family history of diabetes mellitus Family hx of colon cancer Other No family history of adverse response to anesthesia Social History Smoking Status: Former smoker Tobacco Type: Cigarettes Age Started Using Tobacco: 22; packs per day: 0.5; Years Smoked: 25; Cigarettes Per Day: 10; Smoking End Date: 11/02/1999; Second Hand Exposure: No; Do You Dip or Chew Tobacco: No; Hx Alcohol Use: No Hx Substance Use: No Preferred Language: Chinese Communication Ability: Effective Visual Impairment: No Limitations Hearing Ability: Normal Wood Router Hand Required: No Beliefs That Will Affect Care: None marital status: / Current Living Situation: Family Current Living Situation Comment: son current occupational status: retired 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 Other Information That Helps Us Care for You: No Feels Safe at Home: Yes Safety Concerns: Feels Safe At This Time Assistive Devices: Glasses Review of Systems Constitutional: + fatigue and + malaise Ear, Nose, Mouth, Throat: no hearing loss Respiratory: + dyspnea; no cough Cardiovascular: + palpitations Gastrointestinal: no abdominal pain Genitourinary: Oliguria Musculoskeletal: no joint pain Integumentary: + lesions Neurologic: + unsteadiness Psychiatric: no behavioral changes Hematologic / Lymphatic: + easy bruising Anasarca Physical Exam Physical Exam: Extremely edematous Right IJ in place Abdomen soft, nontender Urine clearFoley catheter in place Borderline tachycardic Constitutional: well developed and well nourished Respiratory: no respiratory distress Gastrointestinal (Abdomen): Inspection/Auscultation: abdomen normal to inspection Results & Data ([facility]) Vital Signs (Past 12 Hours) Vital Signs Temp Pulse Resp BP Pulse Ox 01/07/21 09:28 36.5 C 97 H 14 102/61 100 01/07/21 08:28 36.5 C 98 H 18 93/56 L 100 01/07/21 07:29 36.3 C L 83 18 103/57 L 100 01/07/21 07:00 89 01/07/21 03:28 36.3 C L 86 19 99/60 L 100 01/07/21 02:28 36.3 C L 90 15 114/64 100 01/07/21 01:50 87 14 100 01/07/21 01:28 36.3 C L 93 H 12 103/67 100 01/07/21 00:28 36.3 C L 86 10 L 118/74 100 01/06/21 23:46 94 H 01/06/21 23:40 36.5 C 87 15 100 01/06/21 23:30 36.5 C 90 15 100 01/06/21 23:28 36.5 C 89 14 101/59 L 100 01/06/21 22:28 36.5 C 88 17 93/58 L 100 01/06/21 22:11 91 H 14 100 PG Care Time/CCT Total # of Minutes Spent Total Time Spent with Patient: Total time spent is greater than 50% in coordination of care (as documented) at patient's floor/unit and/or counseling patient: Coding Level of Care Code 44125 Inpt Consult Level 4 Diagnoses Recurrent UTI (urinary tract infection) N39.0
--- NOTE | 2021-01-07 10:23 | Cardiology Progress Note ---
Date of Service January 07, 2021 Assessment & Plan (1) Sepsis associated hypotension: (2) Aortic stenosis, severe: (3) SELWYN (acute kidney injury): Sepsis due to suspected urinary source. Blood pressure improved. Norepinephrine weaned. Plan to resume oral metoprolol when BP allows, to prevent atrial arrhythmias. Echo with normal LV wall motion and normal LVEF, severe (chronic finding). Holding diuretcs due to SELWYN. SCDs for DVT prophylaxis. Admission and Anticipated Discharge Date Admission Date: January 05, 2021 Subjective Patient seen in follow-up of sepsis and severe aortic stenosis. She notes feeling generalized improvement. She is off of norepinephrine. Telemetry reveals sinus rhythm/sinus tachycardia in the range of 98 to 100 bpm. Ramírez ca theter is in place draining clear yellow urine. Physical Exam Physical Exam: Temp Pulse Resp BP Pulse Ox 36.5 C 97 H 14 102/61 100 01/07/21 09:28 01/07/21 09:28 01/07/21 09:28 01/07/21 09:28 01/07/21 09:28 Constitutional: Chronically ill in appearance without acute distress Respiratory: normal respiratory effort, lungs clear to auscultation Cardiovascular: Rate/Rhythm: regular rhythm Heart Sounds: + murmur (II/ SM) Vessels: no JVD Extremities: + edema (1-2+ LE edema, SCDs in place) Results & Data ([facility]) Vital Signs (Past 12 Hours) Vital Signs Temp Pulse Resp BP Pulse Ox 01/07/21 09:28 36.5 C 97 H 14 102/61 100 01/07/21 08:28 36.5 C 98 H 18 93/56 L 100 01/07/21 07:29 36.3 C L 83 18 103/57 L 100 01/07/21 07:00 89 01/07/21 03:28 36.3 C L 86 19 99/60 L 100 01/07/21 02:28 36.3 C L 90 15 114/64 100 01/07/21 01:50 87 14 100 01/07/21 01:28 36.3 C L 93 H 12 103/67 100 01/07/21 00:28 36.3 C L 86 10 L 118/74 100 01/06/21 23:46 94 H 01/06/21 23:40 36.5 C 87 15 100 01/06/21 23:30 36.5 C 90 15 100 01/06/21 23:28 36.5 C 89 14 101/59 L 100 01/06/21 22:28 36.5 C 88 17 93/58 L 100 Laboratory Results CBC 01/06/21 01/07/21 Range/Units 12:07 04:34 WBC 12.58 H (4.8-10.8) K/uL RBC 2.95 L (4.2-5.4) M/uL Hgb 8.5 L 8.3 L (12.0-16.0) g/dL Hct 25.5 L 25.6 L (37-47) % Plt Count 113 L (130-400) K/uL Neut # (Auto) 11.67 H (1.4-6.5) K/uL Lymph # (Auto) 0.53 L (1.2-3.4) K/uL [place] # (Auto) 0.31 (0.11-0.59) K/uL Eos # (Auto) 0.03 (0-0.5) K/uL Baso # (Auto) 0.00 (0-0.2) K/uL Comprehensive Metabolic Panel 01/06/21 01/07/21 Range/Units 17:43 04:34 Sodium 136 137 (136-145) mmol/L Potassium 3.8 3.6 (3.5-5.1) mmol/L Chloride 105 107 (98-107) mmol/L Carbon Dioxide 19 L 21 (21-32) mmol/L BUN 47 H 47 H (7-18) mg/dl Creatinine 2.44 H 2.36 H (0.6-1.2) mg/dl Glucose 108 H 79 (70-99) mg/dl Calcium 6.7 L 7.0 L (8.5-10.1) mg/dl Intake and Output 01/06/21 01/07/21 01/07/21 22:59 06:59 14:59 Intake Total 1001.128 / 2758.665 1150 / 2758.665 220.123 / 220.123 Output Total 130 / 572 277 / 572 230 / 230 Balance 871.128 / 2186.665 873 / 2186.665 -9.877 / -9.877 Intake: IV 881.128 / 2338.665 1050 / 2338.665 195.123 / 195.123 ALBUMIN 25% 12.5 gm In 50 ml @ 100 / 150 50 / 150 50 mls/hr IV Q8 NAY Rx#: [id number] D5w and Nss 1,000 ml @ 80 mls/ 725 / 2000 1000 / 2000 114 / 114 hr IV .[id number] NAY Rx#:[id number] LEVOPHED/D5W 8 mg In 508 ml @ 0 56.128 / 188.665 81.123 / 81.123 .05 MCG/KG/MIN 17.316 mls/hr IV .Q24H NAY Rx#:[id number] Oral 120 / 420 100 / 420 25 / 25 Output: Urine 65 / 102 Urine Amount (Catheter) 65 / 470 277 / 470 230 / 230 Ramírez/Indwelling 65 / 470 277 / 470 230 / 230 Other: Weight 94.2 kg Weight Measurement Method Built in [facility]
--- NOTE | 2021-01-07 12:52 | Nephrology Progress Note ---
Date of Service January 07, 2021 Assessment & Plan (1) SELWYN (acute kidney injury): Stage 2 oliguric SELWYN more than likely from ATN; stable labs today. Initial oliguria resolved. her hypotension has not been protracted or severe but may be contributing to SELWYN. remains volume overloaded but chemistries generally ok for now (K supplemented this am); proteinuria assessment is probably meaningless in a patient like this w/ her chronic mccurdy and chronically inflamed urine; note of course some creatinine elevation may reflect bactrim use -agree w/ po K from this am -cont pressor support as needed /minimize IVF if possible > getting D51/2NS at 50 ml hrly d/t BG issues -daily bmp reasonable for now -protein/creat ratio again would have been more helpful if wnl; doubt she truly has nephrotic syndrome/suspect lower tract proteinuria at least in part -no indication to discuss / consider dialysis at this time -urology eval appreciated (2) Oliguria: resolved; cont strict I/O (3) Recurrent UTI (urinary tract infection): >cont to recommend consult [facility] infectious diseases if not already done <<they have records of prior infections -cont meropenem, f/u cultures > urine w/ strep, GNR (4) Sepsis associated hypotension: s/p 3+ L fluid resuscitation; preserved EF; remains pressor dependent currently. no readings consistently below 90 systolic SBP generally 100s 110s on pressor. -continue to wean pressor as tolerated though in her case w/ her volume ove rload, low dose pressor if tolerated may be preferable to excessive IV fluid amounts (5) Anasarca: for the moment treating sepsis takes priority but OK from renal standpoint if BP stabilizes and repeat bmp ok to try lasix c/b profound hypoalbuminemia -agree w/ <2 gm daily Na diet; consider protein supplements and eval for malnutrition -cont to hold OP diuretics for now Admission and Anticipated Discharge Date Admission Date: January 05, 2021 Subjective had one dose lasix and some K early this AM; no longer oliguric after one dose diuretic; new RUQ pain this am and npo currently for liver u/s; soem BG lability; NE off Review of Systems Review of Systems: All systems reviewed & are unremarkable except as noted in Subjective Cardiovascular: + edema (feels unchanged to her) Physical Exam Constitutional: + morbidly obese, + frail appearing, cooperative and comfortable; no acute distress Eyes: EOM intact bilaterally ENMT: Ears: no external ear abnormality Nose: no external nose abnormality Mouth: + dry oral mucous membranes Neck: no nuchal rigidity Respiratory: normal respiratory effort Auscultation: lungs clear to auscultation bilaterally and + diminished lung sounds Cardiovascular: Rate/Rhythm: regular rate and regular rhythm Extremities: + edema (2+) Gastrointestinal (Abdomen): Inspection/Auscultation: normal bowel sounds Percussion/Palpation: + abdomen tender (RUQ) and abdomen soft Musculoskeletal: Extremities: + abnormal strength (generalized weakness, gracie L side) Skin: no rashes, warm and dry Psychiatric: Orientation: alert and oriented x 3 Genitourinary: mccurdy w/ ample urine Results & [facility] ([facility]) Vital Signs (Past 12 Hours) Vital Signs Temp Pulse Resp BP Pulse Ox 01/07/21 09:28 36.5 C 97 H 14 102/61 100 01/07/21 08:28 36.5 C 98 H 18 93/56 L 100 01/07/21 07:29 36.3 C L 83 18 103/57 L 100 01/07/21 07:00 89 01/07/21 03:28 36.3 C L 86 19 99/60 L 100 01/07/21 02:28 36.3 C L 90 15 114/64 100 01/07/21 01:50 87 14 100 01/07/21 01:28 36.3 C L 93 H 12 103/67 100 Laboratory Results 01/07/21 04:34 01/07/21 04:34
[2021-01-07] MEDS: DEXTROSE 50% 50 ML SYRINGE IV PRN (12:59)
[2021-01-07] MEDS ORDERED: D5W AND 1/2NSS 1,000 ML IV SCH (13:30)
--- NOTE | 2021-01-07 15:27 | Hospitalist Progress Note ---
Date of Service January 07, 2021 Assessment & Plan (1) Sepsis: Patient is a 75 yr female with H/O DM II, chronic diastolic heart failure, aortic stenosis, CKD III, HTN, CVA, PVD, COPD, uterine cancer s/p radiation, gastric bypass, mood disorder, factor V Leiden mutation, colitis, recurrent UTI secondary to obstructive uropathy presented to ER with complaint of nausea and generalized weakness. Septic Shock Likely Source: Complicated UTI H/O Left ureteral stent placement by Dr. Castellanos on 12/02/2020. --CT ABD:Interval resolution of the left-sided hydronephrosis. The left ureteral stent is unchanged in position. There remains a punctate mid left ureteral stone adjacent to the ureteral stent. Stable left-sided nephrolithiasis. Stable punctate bladder calculi. Near complete resolution of the colitis with only mild pericolonic fat stranding remaining at the mid sigmoid colon. No evidence for bowel obstruction. Severe body wall edema which has progressed. Cholelithiasis. Trace left pleural effusion has also improved. Persistent bladder wall thickening. -CXR:No acute cardiopulmonary findings. No change in appearance of the chest. -Negative COVID Screen -Procalcitonin:3.6 -Normal Lactate levels -Blood Cx: Negative to date -Urine Culture: Gram-negative bacilli, strep species -On Pressors-Weaned off -IV fluids as needed -Continue Meropenem -Appreciate Director Business Travel help -No indication for stent manipulation or exchange as per urology SELWYN on CKD III Likely ATN Baseline Cr:~1. Cr:2.4>2.2>2.3 CT ABD as above Avoid nephrotoxic agents as able Home diuretics, Bactrim held Monitor renal function Anasarca IV lasix PRN Monitor renal function RUQ ABD pain USD pending Hypokalemia Likely due to poor oral intake Diuretics could have contributed Normal Mag levels Replace electrolytes as needed Recent colitis/hematochezia CT abdomen pelvis shows near complete resolution of colitis H/O poor bowel prep for colonoscopies in past. Outpatient colonoscopy planned Obtain C. difficile/stool cultures if recurrent diarrhea Elevated troponin In setting of renal failure Trend troponin ECHO: Left ventricle wall motion is normal. Factor V Leiden mutation/H/O Recurrent PE/DVT S/P IVC filter placement Off Coumadin secondary to recurrent hematochezia DM II Last Hb A1C: 4.6 in 12/2020 Monitor BSG's NovoLog sliding scale protocol Chronic diastolic heart failure EF 55 to 59%, TTE 2019 monitor I's and O's Diuretics held due to SELWYN Monitor volume status Severe aortic stenosis TAVR contemplated in the future pending cardiac catheterization Cardiology consulted Hypertension Resume metoprolol as able Monitor H/O CVA, PVD Continue statin Uterine Cancer S/P Radiation Mood disorder Continue bupropion, buspirone, Cymbalta Generalized weakness, deconditioning Ongoing for months. Patient with history recurrent hospitalizations PT/OT eval DVT Px: SCDs Code Status DNI only Admission and Anticipated Discharge Date Admission Date: January 05, 2021 Subjective Patient is seen and examined at bedside Reports having RUQ abdominal pain No other complaints Off pressors this morning Denies chest pain, dyspnea, dizziness, nausea,vomiting Review of Systems Review of Systems: All systems reviewed & are unremarkable except as noted in HPI & below Physical Exam Physical Exam: Physical Exam: Vitals signs as noted above General Appearance:Obese, no apparent distress Head: normocephalic, Atraumatic Eyes: normal inspection, EOMI Neck: supple, Trachea midline Respiratory/Chest: Normal breath sounds, CTA Cardiovascular: S1, S2, + systolic murmur Abdomen/GI:Soft, abd tender, Bowel sounds present Extremities/Musculoskelatal:normal inspection, B/L LE edema Neurologic/Psych:AAOX3, grossly no focal neurological deficits Skin: normal color, warm Results & Data Results & Data ([facility]) Vital Signs (Past 12 Hours) Vital Signs Temp Pulse Resp BP Pulse Ox 01/07/21 12:33 36.4 C L 93 H 13 84/55 L 100 01/07/21 12:29 36.4 C L 100 H 12 73/53 L 100 01/07/21 11:28 36.4 C L 92 H 15 101/58 L 100 01/07/21 10:28 36.4 C L 96 H 14 105/63 100 01/07/21 09:28 36.5 C 97 H 14 102/61 100 01/07/21 08:28 36.5 C 98 H 18 93/56 L 100 01/07/21 07:29 36.3 C L 83 18 103/57 L 100 01/07/21 07:00 89 01/07/21 03:28 36.3 C L 86 19 99/60 L 100 Laboratory Results Short CBC 01/07/21 Range/Units 04:34 WBC 12.58 H (4.8-10.8) K/uL Hgb 8.3 L (12.0-16.0) g/dL Hct 25.6 L (37-47) % Plt Count 113 L (130-400) K/uL BMP 01/06/21 01/07/21 17:43 04:34 Sodium 136 137 Potassium 3.8 3.6 Chloride 105 107 Carbon Dioxide 19 L 21 BUN 47 H 47 H Creatinine 2.44 H 2.36 H Glucose 108 H 79 Calcium 6.7 L 7.0 L Cardiac Enzymes 01/06/21 Range/Units 17:43 Total Creatine Kinase 69 (26-192) U/L
--- NOTE | 2021-01-07 16:17 | Ultrasound Report ---
US liver CLINICAL HISTORY: r/o cholecystitis COMPARISON STUDY: CT of the abdomen and pelvis January 05, 2021. FINDINGS: This exam is compromised by difficulty positioning and suboptimal penetration. Suspected sm all gallstones are noted within the gallbladder. No gallbladder wall thickening. No sonographic Ellis y sign was elicited. There is no pericholecystic fluid. Common bile duct is partially obscured but th ere is no definite biliary ductal dilatation. Pancreas is obscured. There is no right hydronephrosis. IMPRESSION: 1. Technically difficult exam. Cholelithiasis. No evidence for acute cholecystitis. 2. Largely obscured pancreas. 3. No biliary ductal dilatation. ACT 112: Negative or not required by law. Electronically signed by: Duke Terry M.D. 01/07/2021 4:15 PM
[2021-01-07] MEDS: CARBOHYDRATES FOR HYPOGLYCEMIA PO PRN (16:25)
[2021-01-07] MEDS: ATORVASTATIN 40 MG TAB PO SCH (20:42)
[2021-01-07] MEDS: DULoxetine HCL 20 MG CAP PO SCH (20:42)
[2021-01-07] MEDS: NOREPINEPHRINE/D5W 8 MG/508 ML BAG IV SCH (21:00)
[2021-01-08] MEDS: oxyCODONE HCL IR 5 MG TAB (IMMEDIATE RELEASE) PO PRN ×4 (04:53→21:13)
[2021-01-08 05:16] LABS: Eosinophils # (auto) 0.06 K/uL (0-0.5); Eosinophils % (auto) 0.6 %; Hematocrit (blood only) 27.5 % (37-47); Hemoglobin 8.9 g/dL (12.0-16.0); Immature Granulocytes # (auto) 0.02 K/uL (0.00-0.02); Immature Granulocytes % (auto) 0.2 %; Lymphocytes # (auto) 0.57 K/uL (1.2-3.4); Lymphocytes % (auto) 5.7 %; Mean Corpuscular Hemoglobin 28.3 pg (25-34); Mean Corpuscular Hgb Conc 32.4 g/dL (32-36); Mean Corpuscular Volume 87.3 fL (80-100); Mean Platelet Volume 11.1 fL (7.4-10.4); Monocytes # (auto) 0.37 K/uL (0.11-0.59); Monocytes % (auto) 3.7 %; Neutrophils # (auto) 9.01 K/uL (1.4-6.5); Neutrophils % (auto) 89.8 %; Platelet Count 108 K/uL (130-400); RDW Coefficient of Variation 18.5 % (11.5-14.5); RDW Standard Deviation 58.7 fL (36.4-46.3); Red Blood Count 3.15 M/uL (4.2-5.4); White Blood Count 10.03 K/uL (4.8-10.8)
[2021-01-08 05:35] LABS: BUN Creatinine Ratio 18.4 (10-20); Calcium 7.5 mg/dl (8.5-10.1); Creatinine Clr Calc Pharmacy 24.3 ml/min; Est GFR (African American) 23.2; Magnesium 1.9 mg/dl (1.8-2.4); Phosphorus 4.1 mg/dl (2.5-4.9); Potassium 4.2 mmol/L (3.5-5.1)
[2021-01-08] MEDS ORDERED: MAGNESIUM SULFATE / D5W 1 GM/100 ML BAG IV ONE (06:11)
--- NOTE | 2021-01-08 07:22 | Critical Care Progress Note ---
Date of Service January 08, 2021 Assessment & Plan (1) Admitted to intensive care unit: Reason Critically Ill: 75-year-old female presents to the ICU with hypotension/shock from likely UTI source, off of pressor support as of 01/07. Neuro - -CAM ICU neg. + inattention. RAAS 0. Neg for disorganized thinking. A&Ox3 -Mood disorder/anxiety depression: Continue home med regimen bupropion, buspirone, Cymbalta. -headache: monitor clinically Cardiac/Vascular - Septic shock patient received IV fluid 3 L crystalloid with systolic blood pressures remaining in 70s, SELWYN and elevated LFTs also noted on chemistry -Most likely secondary to septic shock, urinary source -hypotension, leukocytosis, and elevated procalcitonin on ICU admission -Random cortisol cortisol 60 appropriate, no indication for steroids -Mild elevation of troponin 0.214--> 0.199, no ST elevation on EKG. likely demand ischemia, monitor -Echo 01/06/2021 EF 55-60%, moderate pulmonary hypertension severe . -MAPs appropriate off pressors 16 hours. CVA, PVDcontinue statin HTNcardiology restarted metoprolol 01/08 Severe AScardiology on board. chronic Respiratory - -History of OSABiPAP HS 26/10 home settings -Continue with O2 supplementation to keep oxygen saturation between 88-92% -BiPAP nightly and as needed shortness of breath -satting well on room air 01/08 GI - Continue with p.o. diet -01/08 start megace for hypoalbuminemia and anasarca -add colace BID Transaminitis mild, appears to be chronic. Hypotension may be contributing. Liver unremarkable on CT imaging. -Monitor GERDcontinue PPI RENAL/LYTES - SELWYN on CKD stage III -Baseline creatinine 1.9. 2.36 (01/07)->2.32 (01/08), stable -Hydronephrosis resolved on CT imaging and L ureteral stent in place -Most likely prerenal this patient presents with hypovolemia/hypotension -Keep MAP greater than 65 -Avoid nephrotoxins and renally adjust medication -Strict Is/Os. 01/08: 24 hr 560mL in 1.2L out. cumulative 9.2L in 1.7L out -ATN might be playing a role -01/08 stop fluids, overall is likely fluid overloaded High anion gap metabolic acidosis -Likely secondary to elevated BUN -Lactic acidosis resolved -Monitor - UTI/cystitisFoley inserted for strict I's and O's -Bladder wall thickening noted on CT abdomen -See treatment in ID below -History of ureteric cancerstatus post radiation ENDO - -DM type IImost recent A1c of 4.6 and hypoglycemic on this admission. 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 - switch from Meropenem IV to Augmentin PO 01/08. total of 14 days of abx. hx of MDRO. allergy to fluoroquinolone. - 01/05 BC prelim NG at 48 hrs - 01/05 UC prelim growing pansensitive Klebsiella. streptococcus sensitivities pending Prophylaxis VTE: IPC's. starting Lovenox 40 01/08 GI: Protonix Lines: Right IJ, mccurdy Diet: Cardiac and low sodium. Dispo: downgrade to med/surg tele 01/08. PT/OT eval ordered (2) Anasarca: (3) Sepsis associated hypotension: (4) Shock: (5) Sepsis: (6) SELWYN (acute kidney injury): (7) Recurrent UTI (urinary tract infection): (8) Depression with anxiety: (9) NICOLASA on CPAP: (10) Factor 5 Leiden mutation, heterozygous: (11) Dyslipidemia: (12) Aortic stenosis, severe: Admission and Anticipated Discharge Date Admission Date: January 05, 2021 Supervising Physician Co-Signing Physician Notes Dr. Devine was resident physician during care of patient. I separately evaluated patient for bejarano portions of the history and the exam. I was present during the critical portion of medical decision making, and I discussed the case with the resident. I generally agree with the findings and plan. Patient is stable for downgrade out of ICU to telemetry status Subjective Patient is off of pressors since yesterday. She is complaining of 7/10 LLQ abdominal pain, slightly worse / about same severity as yesterday. Review of Systems Review of Systems: Constitutional: Denies fever, chills Eyes: + mild blurry vision Cardiovascular: Denies Chest pain Respiratory: Denies shortness of breath Gastrointestinal: Denies vomiting, constipation, diarrhea. + nausea Genitourinary: Denies urinary symptoms including dysuria Musculoskeletal: Denies weakness, muscle aches/pain, joint aches/pain Neurological: Denies numbness, tingling, focal weakness. + headache Physical Exam Physical Exam: General: A&Ox3. NAD. Cooperative. HEENT: Atraumatic, normocephalic. EOMI. Pupils appear dilated. Pulm: CTAB. -wheezes, -rales, -rhonchi. Symmetrical chest rise. No respiratory distress. Cardiac: Tachycardic rate, regular rhythm, no rubs/gallops. 2/6 systolic murmur at aortic region. 3+ BLE pitting edema. Abdominal: Nondistended, soft. LLQ TTP, no rebound or guarding. Results & Data Results & Data ([facility]) Vital Signs (Past 12 Hours) Vital Signs Temp Pulse Resp BP Pulse Ox 01/08/21 05:29 36.5 C 103 H 13 151/82 H 100 01/08/21 04:29 36.4 C L 107 H 15 140/84 100 01/08/21 03:29 36.5 C 105 H 18 135/90 100 01/08/21 02:29 36.6 C 107 H 17 108/72 01/08/21 01:28 36.6 C 111 H 15 123/78 97 01/08/21 00:28 36.7 C 110 H 13 121/77 100 01/07/21 23:41 113 H 01/07/21 23:28 36.8 C 110 H 12 103/74 100 01/07/21 23:18 112 H 16 100 01/07/21 22:28 36.8 C 111 H 26 H 90/70 L 97 01/07/21 21:30 36.7 C 108 H 19 94/63 L 01/07/21 20:28 36.6 C 99 H 20 114/59 L 01/07/21 19:28 36.5 C 106 H 14 95/66 L 100 Resident Activity Tracking Resident Involvement: Resident Care Provided Care Provided: Adult Hospital Medicine (1) Sepsis Sepsis acute organ dysfunction status: with acute organ dysfunction Sepsis type: sepsis due to unspecified organism Severe sepsis acute organ dysfunction type: unspecified Severe sepsis shock status: unspecified Qualified Code(s): A41.9 - Sepsis, unspecified organism; R65.20 - Severe sepsis without septic shock
[2021-01-08] MEDS: ACETAMINOPHEN 325 MG TAB PO PRN (07:24)
[2021-01-08] MEDS: MEROPENEM 500 MG in SYRINGE 0 ML IV SCH (07:27)
[2021-01-08] MEDS: INSULIN ASPART 100 UNITS/ML 3 ML PEN SC SCH ×4 (07:29→20:52)
[2021-01-08] MEDS: CHOLECALCIFEROL 1,000 UNITS 25 MCG TAB PO SCH (08:38)
[2021-01-08] MEDS: OXYBUTYNIN CHLORIDE 5 MG TAB PO SCH ×2 (08:38→21:15)
[2021-01-08] MEDS: ADVANCED PROBIOTIC 1250 MG CAPSULE PO SCH (08:39)
[2021-01-08] MEDS: buPROPion SR 100 MG TABCR PO SCH ×2 (08:39→21:13)
[2021-01-08] MEDS: busPIRone 5 MG TAB PO SCH ×3 (08:39→21:15)
[2021-01-08] MEDS: PANTOprazole 40 MG TAB PO SCH (08:39)
[2021-01-08] MEDS ORDERED: AMOXICILLIN/CLAVULANATE 500 MG TAB PO ONE (10:30)
--- NOTE | 2021-01-08 10:36 | Cardiology Progress Note ---
Date of Service January 08, 2021 Assessment & Plan (1) Sepsis: (2) Aortic stenosis, severe: Sepsis , due to suspected urinary source. Chronic severe . Sinus tachycardia. Hypotension improved. Resume home metoprolol. Admission and Anticipated Discharge Date Admission Date: January 05, 2021 Subjective Patient denies CP or shortness of breath. Diffuse non specific left sided pain noted. Telemetry reveals sinus tachycardia at 100-110 bpm. Physical Exam Physical Exam: Temp Pulse Resp BP Pulse Ox 36.9 C 105 H 15 130/82 100 01/08/21 07:00 01/08/21 07:00 01/08/21 07:00 01/08/21 07:00 01/08/21 07:00 Constitutional: chronically ill in appearance Respiratory: mildly decreased at the bases Cardiovascular: RRR, no murmur, no edema Rate/Rhythm: regular rhythm and + tachycardic Heart Sounds: + murmur (II/ SM) Skin: milld ecchymosis Neurologic: no focal deficits Results & Data ([facility]) Vital Signs (Past 12 Hours) Vital Signs Temp Pulse Resp BP Pulse Ox 01/08/21 07:00 36.9 C 105 H 15 130/82 100 01/08/21 05:29 36.5 C 103 H 13 151/82 H 100 01/08/21 04:29 36.4 C L 107 H 15 140/84 100 01/08/21 03:29 36.5 C 105 H 18 135/90 100 01/08/21 02:29 36.6 C 107 H 17 108/72 01/08/21 01:28 36.6 C 111 H 15 123/78 97 01/08/21 00:28 36.7 C 110 H 13 121/77 100 01/07/21 23:41 113 H 01/07/21 23:28 36.8 C 110 H 12 103/74 100 01/07/21 23:18 112 H 16 100 Laboratory Results CBC 01/08/21 Range/Units 04:56 WBC 10.03 (4.8-10.8) K/uL RBC 3.15 L (4.2-5.4) M/uL Hgb 8.9 L (12.0-16.0) g/dL Hct 27.5 L (37-47) % Plt Count 108 L (130-400) K/uL Neut # (Auto) 9.01 H (1.4-6.5) K/uL Lymph # (Auto) 0.57 L (1.2-3.4) K/uL Bailey # (Auto) 0.37 (0.11-0.59) K/uL Eos # (Auto) 0.06 (0-0.5) K/uL Baso # (Auto) 0.00 (0-0.2) K/uL Comprehensive Metabolic Panel 01/08/21 Range/Units 04:56 Sodium 136 (136-145) mmol/L Potassium 4.2 D (3.5-5.1) mmol/L Chloride 107 (98-107) mmol/L Carbon Dioxide 21 (21-32) mmol/L BUN 43 H (7-18) mg/dl Creatinine 2.32 H (0.6-1.2) mg/dl Glucose 71 (70-99) mg/dl Calcium 7.5 L (8.5-10.1) mg/dl Intake and Output 01/07/21 01/08/21 01/08/21 22:59 06:59 14:59 Intake Total 240 / 560.123 100 / 560.123 100 / 100 Output Total 425 / 1235 210 / 1235 75 / 75 Balance -185 / -674.877 -110 / -674.877 Intake: IV 100 / 100 MAGNESIUM SULFATE / D5W 1 gm In 100 / 100 100 ml @ 50 mls/hr IV ONE ONE Rx#:[id number] Oral 240 / 365 100 / 365 Output: Urine 100 / 100 Urine Amount (Catheter) 325 / 1135 210 / 1135 75 / 75 Ramírez/Indwelling 325 / 1135 210 / 1135 75 / 75 Other: Weight 92.3 kg Weight Measurement Method Built in [facility]
[2021-01-08] MEDS ORDERED: DOCUSATE SODIUM 100 MG CAP PO ONE (10:45)
[2021-01-08] MEDS: METOPROLOL SUCC 25MG EXT REL TAB PO SCH ×2 (11:34→21:14)
--- NOTE | 2021-01-08 12:07 | Nephrology Progress Note ---
Date of Service January 08, 2021 Assessment & Plan (1) SELWYN (acute kidney injury): Stage 2 oliguric SELWYN more than likely from ATN; again stable labs today. Initial oliguria resolved. her hypotension has not been protracted or severe but may be contributing to SELWYN. remains volume overloaded but chemistries generally ok for now (K supplemented this am); proteinuria assessment is probably meaningless in a patient like this w/ her chronic mccurdy and chronically inflamed urine; note of course some creatinine elevation may reflect bactrim use -ivf (more for BG) and pressors off > consider diuretics in am if renal function, bp permit -daily bmp reasonable for now -protein/creat ratio again would have been more helpful if wnl; doubt she truly has nephrotic syndrome/suspect lower tract proteinuria at least in part -no indication to discuss / consider dialysis at this time -urology eval appreciated (2) Anasarca: c/b profound hypoalbuminemia -agree w/ <2 gm daily Na diet; consider protein supplements and eval for malnutrition -pt states lasix makes her mouth too dry to swallow and that she's too weak to use spray >> nursing awaire/to work w/ her -cont to hold OP diuretics for now >>would take care w/ megace > it's excreted in urine and not well studied in renal pts; bear in mind she is also s/p vamsi en y : follow closely -agree w/ colace >>nutrition consult if not already done (3) Recurrent UTI (urinary tract infection): >cont to recommend consult [facility] infectious diseases if not already d one <<they have records of prior infections -cont meropenem, f/u cultures > urine w/ strep, klebsiella (4) Sepsis associated hypotension: s/p 3+ L fluid resuscitation; preserved EF; off pressors now. resolved >> resuming home dose metoprolol for sinus tach in setting of severe Admission and Anticipated Discharge Date Admission Date: January 05, 2021 Subjective off pressors since midday 01/07; back on BB; starting megace/colace; pt breathing ok; has minimal appetite and has had for long time. today w/ marked BL leg pain after changing dressing for seeping wounds Review of Systems Review of Systems: All systems reviewed & are unremarkable except as noted in Subjective Physical Exam Constitutional: + morbidly obese, + frail appearing, cooperative and + in distress (mild from leg pain she states) Eyes: EOM intact bilaterally ENMT: Ears: no external ear abnormality Nose: no external nose abnormality Mouth: + dry oral mucous membranes Neck: no nuchal rigidity Respiratory: normal respiratory effort Auscultation: lungs clear to auscultation bilaterally and + diminished lung sounds Cardiovascular: Rate/Rhythm: regular rate and regular rhythm Extremities: + edema (2-3+ seeping/oozing gracie BLE) Gastrointestinal (Abdomen): Inspection/Auscultation: normal bowel sounds Percussion/Palpation: abdomen soft; abdomen nontender Musculoskeletal: Extremities: + abnormal strength (generalized weakness, gracie L side) Skin: no rashes, warm and dry Neurologic: rabago, fluent speech, no tremor Psychiatric: Orientation: alert and oriented x 3 Genitourinary: mccurdy w/ scant urine Results & Data ([facility]) Vital Signs (Past 12 Hours) Vital Signs Temp Pulse Resp BP Pulse Ox 01/08/21 11:00 36.8 C 113 H 17 125/80 100 01/08/21 10:00 36.7 C 116 H 16 131/84 100 01/08/21 09:00 36.7 C 111 H 18 133/82 100 01/08/21 08:00 36.6 C 113 H 16 116/77 93 01/08/21 07:00 36.9 C 105 H 15 130/82 100 01/08/21 05:29 36.5 C 103 H 13 151/82 H 100 01/08/21 04:29 36.4 C L 107 H 15 140/84 100 01/08/21 03:29 36.5 C 105 H 18 135/90 100 01/08/21 02:29 36.6 C 107 H 17 108/72 01/08/21 01:28 36.6 C 111 H 15 123/78 97 01/08/21 00:28 36.7 C 110 H 13 121/77 100 Laboratory Results 01/08/21 04:56 01/08/21 04:56
[2021-01-08] MEDS: ENOXAPARIN INJ 40 MG/0.4 ML SYR SQ SCH (12:58)
[2021-01-08] MEDS: AMOXICILLIN/CLAVULANATE 500 MG TAB PO SCH (15:55)
--- NOTE | 2021-01-08 17:01 | Hospitalist Progress Note ---
Date of Service January 08, 2021 Assessment & Plan (1) Sepsis: Patient is a 75 yr female with H/O DM II, chronic diastolic heart failure, aortic stenosis, CKD III, HTN, CVA, PVD, COPD, uterine cancer s/p radiation, gastric bypass, mood disorder, factor V Leiden mutation, colitis, recurrent UTI secondary to obstructive uropathy presented to ER with complaint of nausea and generalized weakness. Septic Shock Likely Source: Complicated UTI H/O Left ureteral stent placement by Dr. Castellanos on 12/02/2020. --CT ABD:Interval resolution of the left-sided hydronephrosis. The left ureteral stent is unchanged in position. There remains a punctate mid left ureteral stone adjacent to the ureteral stent. Stable left-sided nephrolithiasis. Stable punctate bladder calculi. Near complete resolution of the colitis with only mild pericolonic fat stranding remaining at the mid sigmoid colon. No evidence for bowel obstruction. Severe body wall edema which has progressed. Cholelithiasis. Trace left pleural effusion has also improved. Persistent bladder wall thickening. -CXR:No acute cardiopulmonary findings. No change in appearance of the chest. -Negative COVID Screen -Procalcitonin:3.6 -Normal Lactate levels -Blood Cx: Negative to date -Urine Culture: Klebsiella, strep species -Weaned off of pressors -Received IV fluids Appreciate ID input -Continue Meropenem>> transition to Augmentin : last dose on 01/13 -Appreciate Tissue Rewinder help -No indication for stent manipulation or exchange as per urology -Transfer out of ICU SELWYN on CKD III Likely ATN Baseline Cr:~1. Cr:2.4>2.2>2.3 CT ABD as above Avoid nephrotoxic agents as able Home diuretics, Bactrim held Monitor renal function Anasarca IV lasix PRN Monitor renal function Resume home diuretics as able RUQ ABD pain Liver USD:Cholelithiasis. No evidence for acute cholecystitis. Largely obscured pancreas. No biliary ductal dilatation. Abdominal pain resolved Monitor Hypokalemia Likely due to poor oral intake Diuretics could have contributed Normal Mag levels Replace electrolytes as needed Recent colitis/hematochezia CT abdomen pelvis shows near complete resolution of colitis H/O poor bowel prep for colonoscopies in past. Outpatient colonoscopy planned Obtain C. difficile/stool cultures if recurrent diarrhea Elevated troponin In setting of renal failure Trend troponin ECHO: Left ventricle wall motion is normal. Factor V Leiden mutation/H/O Recurrent PE/DVT S/P IVC filter placement Off Coumadin secondary to recurrent hematochezia DM II Last Hb A1C: 4.6 in 12/2020 Monitor BSG's NovoLog sliding scale protocol Chronic diastolic heart failure EF 55 to 59%, TTE 2019 monitor I's and O's Diuretics held due to SELWYN Monitor volume status Severe aortic stenosis TAVR contemplated in the future pending cardiac catheterization Cardiology consulted Hypertension Resume metoprolol as able Monitor H/O CVA, PVD Continue statin Uterine Cancer S/P Radiation Mood disorder Continue bupropion, buspirone, Cymbalta Generalized weakness, deconditioning Ongoing for months. Patient with history recurrent hospitalizations PT/OT eval DVT Px: Lovenox SQ Code Status DNI only Admission and Anticipated Discharge Date Admission Date: January 05, 2021 Subjective Patient is seen and examined at bedside RUQ abdominal pain resolved Sinus Tachycardia on monitor Chronic left flank pain BP improved Off pressors Denies chest pain, dyspnea, dizziness, nausea,vomiting Plan to transfer out of ICU Review of Systems Review of Systems: All systems reviewed & are unremarkable except as noted in HPI & below Physical Exam Physical Exam: Physical Exam: Vitals signs as noted above General Appearance:Obese, no apparent distress Head: normocephalic, Atraumatic Eyes: normal inspection, EOMI Neck: supple, Trachea midline Respiratory/Chest: Normal breath sounds, CTA Cardiovascular: S1, S2, + systolic murmur, Tachycardia Abdomen/GI:Soft, Non tender, Bowel sounds present Extremities/Musculoskelatal:normal inspection, B/L LE edema Neurologic/Psych:AAOX3, grossly no focal neurological deficits Skin: normal color, warm Results & Data Results & Data ([facility]) Vital Signs (Past 12 Hours) Vital Signs Temp Pulse Pulse Resp BP BP Pulse Ox 01/08/21 16:18 36.7 C 109 H 18 101/67 99 01/08/21 12:00 36.7 C 111 H 13 138/101 H 100 01/08/21 11:00 36.8 C 113 H 17 125/80 100 01/08/21 10:00 36.7 C 116 H 16 131/84 100 01/08/21 09:00 36.7 C 111 H 18 133/82 100 01/08/21 08:00 36.6 C 113 H 16 116/77 93 01/08/21 07:00 36.9 C 105 H 15 130/82 100 01/08/21 05:29 36.5 C 103 H 13 151/82 H 100 Laboratory Results Short CBC 01/08/21 Range/Units 04:56 WBC 10.03 (4.8-10.8) K/uL Hgb 8.9 L (12.0-16.0) g/dL Hct 27.5 L (37-47) % Plt Count 108 L (130-400) K/uL BMP 01/08/21 04:56 Sodium 136 Potassium 4.2 D Chloride 107 Carbon Dioxide 21 BUN 43 H Creatinine 2.32 H Glucose 71 Calcium 7.5 L
[2021-01-08] MEDS: ATORVASTATIN 40 MG TAB PO SCH (21:14)
[2021-01-08] MEDS: DOCUSATE SODIUM 100 MG CAP PO SCH (21:15)
[2021-01-08] MEDS: DULoxetine HCL 20 MG CAP PO SCH (21:15)
[2021-01-09] MEDS: oxyCODONE HCL IR 5 MG TAB (IMMEDIATE RELEASE) PO PRN ×2 (02:49→14:58)
[2021-01-09 06:35] LABS: Hematocrit (blood only) 26.3 % (37-47); Hemoglobin 8.4 g/dL (12.0-16.0); Mean Corpuscular Hemoglobin 27.8 pg (25-34); Mean Corpuscular Hgb Conc 31.9 g/dL (32-36); Mean Corpuscular Volume 87.1 fL (80-100); Mean Platelet Volume 11.8 fL (7.4-10.4); Platelet Count 124 K/uL (130-400); RDW Coefficient of Variation 18.6 % (11.5-14.5); RDW Standard Deviation 60.1 fL (36.4-46.3); Red Blood Count 3.02 M/uL (4.2-5.4); White Blood Count 8.07 K/uL (4.8-10.8)
[2021-01-09 07:08] LABS: BUN Creatinine Ratio 17.7 (10-20); Creatinine Clr Calc Pharmacy 25.1 ml/min; Est GFR (African American) 24.1; Est GFR (Non-African American) 20.8; Potassium 4.2 mmol/L (3.5-5.1)
--- NOTE | 2021-01-09 07:24 | Billing Data ---
Date of Service January 08, 2021 Coding Level of Care Code 04440 Subseq Hosp Care Lvl 3
[2021-01-09] MEDS ORDERED: MEGESTROL ACETATE 800 MG/20 ML UDP PO SCH (09:00)
[2021-01-09] MEDS: PANTOprazole 40 MG TAB PO SCH (09:13)
[2021-01-09] MEDS: buPROPion SR 100 MG TABCR PO SCH ×2 (09:14→20:55)
[2021-01-09] MEDS: CHOLECALCIFEROL 1,000 UNITS 25 MCG TAB PO SCH (09:14)
[2021-01-09] MEDS: AMOXICILLIN/CLAVULANATE 500 MG TAB PO SCH ×2 (09:14→17:38)
[2021-01-09] MEDS: OXYBUTYNIN CHLORIDE 5 MG TAB PO SCH (09:15)
[2021-01-09] MEDS: ADVANCED PROBIOTIC 1250 MG CAPSULE PO SCH (09:15)
[2021-01-09] MEDS: busPIRone 5 MG TAB PO SCH ×3 (09:15→20:46)
[2021-01-09] MEDS: METOPROLOL SUCC 25MG EXT REL TAB PO SCH ×2 (09:16→20:47)
[2021-01-09] MEDS: DOCUSATE SODIUM 100 MG CAP PO SCH ×2 (09:16→20:55)
[2021-01-09] MEDS: INSULIN ASPART 100 UNITS/ML 3 ML PEN SC SCH ×4 (09:45→20:53)
--- NOTE | 2021-01-09 11:15 | Nephrology Progress Note ---
Date of Service January 09, 2021 Assessment & Plan (1) SELWYN (acute kidney injury): Stage 2 oliguric SELWYN from ATN; stable creatinine past few days. Initial oliguria resolved. her hypotension has not been protracted or severe but may be contributing to SELWYN. remains volume overloaded but chemistries generally ok for now (K supplemented this am); proteinuria assessment is probably meaningless in a patient like this w/ her chronic mccurdy and chronically inflamed urine; note of course some creatinine elevation may reflect bactrim use -daily bmp reasonable for now -protein/creat ratio again would have been more helpful if wnl; doubt she truly has nephrotic syndrome/suspect lower tract proteinuria at least in part -no indication to discuss / consider dialysis at this time -urology eval appreciated ->>>>needs diuretics but for now bp too soft; consider lower/shorter acting BB dose if cardiology agrees (2) Anasarca: c/b profound hypoalbuminemia -agree w/ <2 gm daily Na diet >>>>>consider protein supplements and eval for malnutrition -pt states lasix makes her mouth too dry to swallow and that she's too weak to use spray at times >>>>states dry mouth keep her from eating; will stop oxybutynin -cont to hold OP diuretics for now -megace d/c'd >>>>>needs nutrition consult / f/u (3) Recurrent UTI (urinary tract infection): -cont meropenem, f/u cultures > urine w/ strep, klebsiell (4) Sepsis associated hypotension: s/p 3+ L fluid resuscitation; preserved EF; off pressors now. resolved >> resuming home dose metoprolol for sinus tach in setting of severe Admission and Anticipated Discharge Date Admission Date: January 05, 2021 Subjective ongoing c/o dry mouth > limits what she can eat; minimal po; edema a bit better Review of Systems Review of Systems: All systems reviewed & are unremarkable except as noted in Subjective Physical Exam Constitutional: + morbidly obese, + frail appearing and cooperative; no acute distress Eyes: EOM intact bilaterally ENMT: Ears: no external ear abnormality Nose: no external nose abnormality Mouth: + dry oral mucous membranes Neck: no nuchal rigidity Respiratory: normal respiratory effort Auscultation: lungs clear to auscultation bilaterally and + diminished lung sounds Cardiovascular: Rate/Rhythm: regular rate and regular rhythm Extremities: + edema (1-2+ seeping/oozing gracie BLE) Gastrointestinal (Abdomen): Inspection/Auscultation: normal bowel sounds Percussion/Palpation: abdomen soft; abdomen nontender Musculoskeletal: Extremities: + abnormal strength (generalized weakness, gracie L side) Skin: no rashes, warm and dry Psychiatric: Orientation: alert and oriented x 3 Results & Data ([facility]) Vital Signs (Past 12 Hours) Vital Signs Temp Pulse Pulse Resp BP Pulse Ox 01/09/21 11:00 36.6 C 85 20 95/64 L 100 01/09/21 07:00 36.7 C 88 20 93/64 L 99 01/09/21 03:34 36.6 C 88 18 98/67 L 97 01/09/21 01:53 94 H Laboratory Results 01/09/21 05:50 01/09/21 05:50
--- NOTE | 2021-01-09 14:46 | Cardiology Progress Note ---
Date of Service January 09, 2021 Assessment & Plan (1) Sepsis: (2) Aortic stenosis, severe: Septic shock, suspected urinary source, resolved, blood pressure overall improved. Chronic anemia, Unchanged. SELWYN , perhaps ATN from transient hypotension related to shock. Continue to monitor off of diuretics for now. On oral Augmentin. Admission and Anticipated Discharge Date Admission Date: January 05, 2021 Subjective Mrs Liang is seen in cardiology follow-up. Ongoing diffuse musculoskeletal aches and pains noted with movement, comfortable while lying in bed. Telemetry reveals interval improvement in her heart rates, sinus rhythm in the 90s compared to sinus tachycardia in the 110's notes yesterday. Physical Exam Physical Exam: Temp Pulse Resp BP Pulse Ox 36.6 C 85 20 95/64 L 100 01/09/21 11:00 01/09/21 11:00 01/09/21 11:00 01/09/21 11:00 01/09/21 11:00 Constitutional: Chronically ill in appearance, no acute distress Eyes: Left conjunctival erythema noted Results & Data ([facility]) Vital Signs (Past 12 Hours) Vital Signs Temp Pulse Pulse Resp BP Pulse Ox 01/09/21 11:00 36.6 C 85 20 95/64 L 100 01/09/21 09:00 84 01/09/21 07:00 36.7 C 88 20 93/64 L 99 01/09/21 03:34 36.6 C 88 18 98/67 L 97
[2021-01-09] MEDS: ENOXAPARIN INJ 40 MG/0.4 ML SYR SQ SCH (14:58)
--- NOTE | 2021-01-09 16:31 | Hospitalist Progress Note ---
Date of Service January 09, 2021 Assessment & Plan (1) Sepsis: Patient is a 75 yr female with H/O DM II, chronic diastolic heart failure, aortic stenosis, CKD III, HTN, CVA, PVD, COPD, uterine cancer s/p radiation, gastric bypass, mood disorder, factor V Leiden mutation, colitis, recurrent UTI secondary to obstructive uropathy presented to ER with complaint of nausea and generalized weakness. Septic Shock Likely Source: Complicated UTI H/O Left ureteral stent placement by Dr. Castellanos on 12/02/2020. --CT ABD:Interval resolution of the left-sided hydronephrosis. The left ureteral stent is unchanged in position. There remains a punctate mid left ureteral stone adjacent to the ureteral stent. Stable left-sided nephrolithiasis. Stable punctate bladder calculi. Near complete resolution of the colitis with only mild pericolonic fat stranding remaining at the mid sigmoid colon. No evidence for bowel obstruction. Severe body wall edema which has progressed. Cholelithiasis. Trace left pleural effusion has also improved. Persistent bladder wall thickening. -CXR:No acute cardiopulmonary findings. No change in appearance of the chest. -Negative COVID Screen -Procalcitonin:3.6 -Normal Lactate levels -Blood Cx: Negative to date -Urine Culture: Klebsiella, Enterococcus VRE (Enterococcus VRE likely colonization as per ID) -Weaned off of pressors -Received IV fluids Appreciate ID input -Continue Meropenem>> transition to Augmentin : last dose on 01/13 -Appreciate [employer] help -No indication for stent manipulation or exchange as per urology -Continue current medications ESLWYN on CKD III Likely ATN Baseline Cr:~1. Cr:2.4>2.2 CT ABD as above Avoid nephrotoxic agents as able Home diuretics, Bactrim held Monitor renal function Anasarca IV lasix PRN Monitor renal function Resume home diuretics as able RUQ ABD pain Liver USD:Cholelithiasis. No evidence for acute cholecystitis. Largely obscured pancreas. No biliary ductal dilatation. Abdominal pain resolved Monitor Hypokalemia Likely due to poor oral intake Diuretics could have contributed Normal Mag levels Replace electrolytes as needed Recent colitis/hematochezia CT abdomen pelvis shows near complete resolution of colitis H/O poor bowel prep for colonoscopies in past. Outpatient colonoscopy planned Obtain C. difficile/stool cultures if recurrent diarrhea Elevated troponin In setting of renal failure Trend troponin ECHO: Left ventricle wall motion is normal. Factor V Leiden mutation/H/O Recurrent PE/DVT S/P IVC filter placement Off Coumadin secondary to recurrent hematochezia DM II Last Hb A1C: 4.6 in 12/2020 Monitor BSG's NovoLog sliding scale protocol Chronic diastolic heart failure EF 55 to 59%, TTE 2019 monitor I's and O's Diuretics held due to SELWYN Monitor volume status Severe aortic stenosis TAVR contemplated in the future pending cardiac catheterization Cardiology consulted Hypertension Resume metoprolol as able Monitor H/O CVA, PVD Continue statin Uterine Cancer S/P Radiation Mood disorder Continue bupropion, buspirone, Cymbalta Generalized weakness, deconditioning Ongoing for months. Patient with history recurrent hospitalizations PT/OT eval DVT Px: Lovenox SQ Code Status DNI only Admission and Anticipated Discharge Date Admission Date: January 05, 2021 Subjective Patient is seen and examined at bedside States having chronic left-sided hip, leg pain with movement Blood pressure relatively low this morning Denies chest pain, dyspnea, dizziness, nausea,vomiting Offers no other complaints Updated patient's son Review of Systems Review of Systems: All systems reviewed & are unremarkable except as noted in HPI & below Physical Exam Physical Exam: Physical Exam: Vitals signs as noted above General Appearance:Obese, no apparent distress Head: normocephalic, Atraumatic Eyes: normal inspection, EOMI Neck: supple, Trachea midline Respiratory/Chest: Normal breath sounds, CTA Cardiovascular: S1, S2, + systolic murmur Abdomen/GI:Soft, Non tender, Bowel sounds present Extremities/Musculoskelatal:normal inspection, B/L LE edema Neurologic/Psych:AAOX3, grossly no focal neurological deficits Skin: normal color, warm Results & Data Results & Data ([facility]) Vital Signs (Past 12 Hours) Vital Signs Temp Pulse Pulse Resp BP BP Pulse Ox 01/09/21 15:33 85 01/09/21 15:21 36.3 C L 90 20 99 01/09/21 15:08 103/58 L 01/09/21 11:00 36.6 C 85 20 95/64 L 100 01/09/21 09:00 84 01/09/21 07:00 36.7 C 88 20 93/64 L 99 Laboratory Results Short CBC 01/09/21 Range/Units 05:50 WBC 8.07 (4.8-10.8) K/uL Hgb 8.4 L (12.0-16.0) g/dL Hct 26.3 L (37-47) % Plt Count 124 L (130-400) K/uL [facility] 01/09/21 05:50 Sodium 138 Potassium 4.2 Chloride 106 Carbon Dioxide 21 BUN 40 H Creatinine 2.25 H Glucose 59 L Calcium 8.0 L
[2021-01-09] MEDS: DULoxetine HCL 20 MG CAP PO SCH (20:55)
[2021-01-09] MEDS: ATORVASTATIN 40 MG TAB PO SCH (20:56)
[2021-01-10 06:36] LABS: Hematocrit (blood only) 26.5 % (37-47); Hemoglobin 8.4 g/dL (12.0-16.0); Mean Corpuscular Hemoglobin 27.9 pg (25-34); Mean Corpuscular Hgb Conc 31.7 g/dL (32-36); Mean Platelet Volume 10.3 fL (7.4-10.4); Platelet Count 119 K/uL (130-400); RDW Coefficient of Variation 18.4 % (11.5-14.5); RDW Standard Deviation 58.9 fL (36.4-46.3); Red Blood Count 3.01 M/uL (4.2-5.4); White Blood Count 8.13 K/uL (4.8-10.8)
[2021-01-10 07:05] LABS: BUN Creatinine Ratio 19.6 (10-20); Calcium 7.6 mg/dl (8.5-10.1); Creatinine Clr Calc Pharmacy 27.8 ml/min; Est GFR (African American) 26.8; Est GFR (Non-African American) 23.1; Potassium 3.9 mmol/L (3.5-5.1)
[2021-01-10] MEDS: CARBOHYDRATES FOR HYPOGLYCEMIA PO PRN ×2 (07:45→08:05)
[2021-01-10] MEDS: ONDANSETRON INJ 2 MG/ML 2 ML VIAL IV PRN ×2 (08:37→23:07)
[2021-01-10] MEDS: oxyCODONE HCL IR 5 MG TAB (IMMEDIATE RELEASE) PO PRN (08:40)
[2021-01-10] MEDS: METOPROLOL SUCC 25MG EXT REL TAB PO SCH ×2 (08:40→20:13)
[2021-01-10] MEDS: busPIRone 5 MG TAB PO SCH ×3 (09:00→20:12)
[2021-01-10] MEDS: CHOLECALCIFEROL 1,000 UNITS 25 MCG TAB PO SCH (09:01)
[2021-01-10] MEDS: AMOXICILLIN/CLAVULANATE 500 MG TAB PO SCH ×2 (09:01→17:31)
[2021-01-10] MEDS: ADVANCED PROBIOTIC 1250 MG CAPSULE PO SCH (09:01)
[2021-01-10] MEDS: buPROPion SR 100 MG TABCR PO SCH ×2 (09:02→20:12)
[2021-01-10] MEDS: PANTOprazole 40 MG TAB PO SCH (09:02)
[2021-01-10] MEDS: INSULIN ASPART 100 UNITS/ML 3 ML PEN SC SCH (09:03)
[2021-01-10] MEDS ORDERED: POLYETHYLENE (MIRALAX) 17 GM PACK PO PRN (09:15)
--- NOTE | 2021-01-10 12:22 | Cardiology Progress Note ---
Date of Service January 10, 2021 Assessment & Plan (1) Aortic stenosis, severe: Septic shock physiology improved. ANGE on hold given multiple problems. SELWYN noted. Typically on furosemide 80 mg alternating with 60 mg orally as an outpatient. At some point, need to reintroduce diuretic therapy. Sinus tachycardia improved on prior to hospital dose of metoprolol succinate 12.5 mg twice daily. Continue Lovenox 40 mg subcutaneously daily for DVT prophylaxis. Admission and Anticipated Discharge Date Admission Date: January 05, 2021 Subjective Patient seen in follow-up of her history of severe aortic valve stenosis. Noted recent hypoglycemia. She notes that food just does not taste right for her. Physical Exam Physical Exam: Temp Pulse Resp BP Pulse Ox 36.2 C L 81 20 102/68 97 01/10/21 11:16 01/10/21 11:16 01/10/21 11:16 01/10/21 11:16 01/10/21 11:16 Constitutional: Chronically ill in appearance, no distress, obese forearm bruising noted Respiratory: Auscultation: + diminished lung sounds (Mildly decreased breath sounds in the bases) Cardiovascular: Rate/Rhythm: regular rhythm Heart Sounds: + murmur (II/ SM) 1-2+ Le edema Gastrointestinal (Abdomen): normal bowel sounds, soft, nontender, no hepatosplenomegaly Neurologic: PERRL, EOMI, accommodation nl, no face palsy, no dysarthria Results & Data ([facility]) Vital Signs (Past 12 Hours) Vital Signs Temp Pulse Pulse Resp BP BP Pulse Ox 01/10/21 11:16 36.2 C L 81 20 102/68 97 01/10/21 07:56 36.7 C 84 20 110/67 98 01/10/21 07:09 78 01/10/21 04:16 36.5 C 74 20 106/72 98 Laboratory Results CBC 01/10/21 Range/Units 06:16 WBC 8.13 (4.8-10.8) K/uL RBC 3.01 L (4.2-5.4) M/uL Hgb 8.4 L (12.0-16.0) g/dL Hct 26.5 L (37-47) % Plt Count 119 L (130-400) K/uL Comprehensive Metabolic Panel 01/10/21 Range/Units 06:16 Sodium 136 (136-145) mmol/L Potassium 3.9 (3.5-5.1) mmol/L Chloride 107 (98-107) mmol/L Carbon Dioxide 21 (21-32) mmol/L BUN 40 H (7-18) mg/dl Creatinine 2.06 H (0.6-1.2) mg/dl Glucose 55 L (70-99) mg/dl Calcium 7.6 L (8.5-10.1) mg/dl Intake and Output 01/09/21 01/10/21 01/10/21 22:59 06:59 14:59 Intake Total 100 / 270 50 / 270 Output Total 175 / 500 175 / 500 Balance -75 / -230 -125 / -230 Intake: Oral 100 / 270 50 / 270 Output: Urine Amount (Catheter) 175 / 500 175 / 500 Ramírez/Indwelling 175 / 500 175 / 500 Other: Weight 92.3 kg 94.7 kg Weight Measurement Method Built in [facility]
[2021-01-10] MEDS: DOCUSATE SODIUM 100 MG CAP PO SCH ×2 (13:16→20:17)
[2021-01-10] MEDS: ENOXAPARIN INJ 40 MG/0.4 ML SYR SQ SCH (13:55)
--- NOTE | 2021-01-10 16:54 | Hospitalist Progress Note ---
Date of Service January 10, 2021 Assessment & Plan (1) Sepsis: Patient is a 75 yr female with H/O DM II, chronic diastolic heart failure, aortic stenosis, CKD III, HTN, CVA, PVD, COPD, uterine cancer s/p radiation, gastric bypass, mood disorder, factor V Leiden mutation, colitis, recurrent UTI secondary to obstructive uropathy presented to ER with complaint of nausea and generalized weakness. Septic Shock resolved , vitals been stable Likely Source: Complicated UTI H/O Left ureteral stent placement by Dr. Castellanos on 12/02/2020. --CT ABD:Interval resolution of the left-sided hydronephrosis. The left ureteral stent is unchanged in position. There remains a punctate mid left ureteral stone adjacent to the ureteral stent. Stable left-sided nephrolithiasis. Stable punctate bladder calculi. Near complete resolution of the colitis with only mild pericolonic fat stranding remaining at the mid sigmoid colon. No evidence for bowel obstruction. Severe body wall edema which has progressed. Cholelithiasis. Trace left pleural effusion has also improved. Persistent bladder wall thickening. -CXR:No acute cardiopulmonary findings. No change in appearance of the chest. -Negative COVID Screen -Procalcitonin:3.6 -Normal Lactate levels -Blood Cx: Negative to date -Urine Culture: Klebsiella, Enterococcus VRE (Enterococcus VRE likely colonization as per ID) - Appreciate ID input d/c Meropenem>> transition to Augmentin : last dose on 01/13 - -No indication for stent manipulation or exchange as per urology -Continue current medications SELWYN on CKD III Likely ATN Baseline Cr:~1. Cr:2.4>2.2 CT ABD as above Avoid nephrotoxic agents as able Home diuretics, Bactrim held Monitor renal function nephrology following RUQ ABD pain Liver USD:Cholelithiasis. No evidence for acute cholecystitis. Largely obscured pancreas. No biliary ductal dilatation. Abdominal pain resolved Monitor Hypokalemia Likely due to poor oral intake Diuretics could have contributed Normal Mag levels Replace electrolytes as needed Recent colitis/hematochezia CT abdomen pelvis shows near complete resolution of colitis H/O poor bowel prep for colonoscopies in past. Outpatient colonoscopy planned Obtain C. difficile/stool cultures if recurrent diarrhea Elevated troponin In setting of renal failure Trend troponin ECHO: Left ventricle wall motion is normal. Factor V Leiden mutation/H/O Recurrent PE/DVT S/P IVC filter placement Off Coumadin secondary to recurrent hematochezia hx of DM II-currently not diabetic Last Hb A1C: 4.6 in 12/2020- multiple episodes of hypoglycemia noted D/c insulin SSI regular diet Chronic diastolic heart failure EF 55 to 59%, TTE 2019 monitor I's and O's Diuretics held due to SELWYN Monitor volume status Severe aortic stenosis TAVR contemplated in the future pending cardiac catheterization Cardiology following H/O CVA, PVD Continue statin Uterine Cancer S/P Radiation Mood disorder Continue bupropion, buspirone, Cymbalta Generalized weakness, deconditioning Ongoing for months. Patient with history recurrent hospitalizations PT/OT eval DVT Px: Lovenox SQ Code Status DNI disposition : continue to monitor in tele PT/OT eval requested Admission and Anticipated Discharge Date Admission Date: January 05, 2021 Subjective pt reports her appetite has improved ,since diet is liberalized to regular complains of abdominal distention and bloating -did not had any bowel movement for past 3 days willing to try stool softener no nausea /vomiting no chest pain , sob , orthopnea , palpitation or chest heaviness Review of Systems Review of Systems: All systems reviewed & are unremarkable except as noted in Subjective Physical Exam Physical Exam: Physical Exam Constitutional + morbidly obese, + frail appearing and cooperative; no acute distress ENMT Eyes EOM intact bilaterally Ears: no external ear abnormality Nose: no external nose abnormality Mouth: + dry oral mucous membranes Neck no nuchal rigidity Respiratory normal respiratory effort Auscultation: lungs clear to auscultation bilaterally and + diminished lung sounds Cardiovascular Rate/Rhythm: regular rate and regular rhythm Extremities: + edema (2-3+ BLE) Gastrointestinal (Abdomen) Inspection/Auscultation: normal bowel sounds Percussion/Palpation: abdomen soft; abdomen nontender Musculoskeletal Extremities: + abnormal strength (generalized weakness, gracie L side) Skin no rashes, warm and dry Neurologic awake , alert, fluent speech, generalized weakness Psychiatric Orientation: alert and oriented x 3 Genitourinary mccurdy present Constitutional: + morbidly obese, + frail appearing and cooperative; no acute distress Eyes: EOM intact bilaterally ENMT: Ears: no external ear abnormality Nose: no external nose abnormality Mouth: + dry oral mucous membranes Neck: no nuchal rigidity Respiratory: normal respiratory effort Auscultation: lungs clear to auscultation bilaterally and + diminished lung sounds Cardiovascular: Rate/Rhythm: regular rate and regular rhythm Extremities: + edema (2-3+ BLE) Gastrointestinal (Abdomen): Inspection/Auscultation: normal bowel sounds Percussion/Palpation: abdomen soft; abdomen nontender Musculoskeletal: Extremities: + abnormal strength (generalized weakness, gracie L side) Skin: no rashes, warm and dry Neurologic: awake rabago, fluent speech, generalized weakness Psychiatric: Orientation: alert and oriented x 3 Genitourinary: mccurdy present Results & Data Results & Data ([facility]) Vital Signs (Past 12 Hours) Vital Signs Temp Pulse Pulse Resp BP Pulse Ox 01/10/21 15:00 82 01/10/21 14:20 36.5 C 81 20 114/74 99 01/10/21 11:16 36.2 C L 81 20 102/68 97 01/10/21 07:56 36.7 C 84 20 110/67 98 01/10/21 07:09 78
--- NOTE | 2021-01-10 17:07 | Nephrology Progress Note ---
Date of Service January 10, 2021 Assessment & Plan (1) SELWYN (acute kidney injury): Stage 2 oliguric SELWYN from ATN; stable creatinine past few days. Initial oliguria resolved. baseline creatinine 1.1-1.2 but fairly labile. her hypotension has not been protracted or severe but may be contributing to SELWYN. remains volume overloaded but chemistries generally ok for now (K supplemented this am); proteinuria assessment is probably meaningless in a patient like this w/ her chronic mccurdy and chronically inflamed urine; note of course some creatinine elevation may reflect bactrim use -daily bmp reasonable for now -protein/creat ratio again would have been more helpful if wnl; doubt she truly has nephrotic syndrome/suspect lower tract proteinuria at least in part -no indication to discuss / consider dialysis at this time -urology eval appreciated ->>>>cautious trial of lasix 10 mg IV tid; as OP takes 60 mg alt w/ 40 mg daily lasix (2) Anasarca: c/b profound hypoalbuminemia -agree w/ <2 gm daily Na diet >>>>eval for malnutrition -pt states lasix makes her mouth too dry to swallow and that she's too weak to use spray at times >>>>states dry mouth keep her from eating; will stop oxybutynin -diuretics as above >appreciate RD follow up; trial of protein supplements planned (3) Recurrent UTI (urinary tract infection): -cont meropenem, f/u cultures > urine w/ strep, klebsiell (4) Sepsis associated hypotension: s/p 3+ L fluid resuscitation; preserved EF; off pressors now. resolved >> resuming home dose metoprolol for sinus tach in setting of severe ; cautious diuretic trial Admission and Anticipated Discharge Date Admission Date: January 05, 2021 Subjective improved appetite after working w/ dietary; still w/ dry mouth; no sob; less leg pain as long as not moving/dreesing them Review of Systems Review of Systems: All systems reviewed & are unremarkable except as noted in Subjective Physical Exam Constitutional: + morbidly obese, + frail appearing and cooperative; no acute distress Eyes: EOM intact bilaterally ENMT: Ears: no external ear abnormality Nose: no external nose abnormality Mouth: + dry oral mucous membranes Neck: no nuchal rigidity Respiratory: normal respiratory effort Auscultation: lungs clear to ausc ultation bilaterally and + diminished lung sounds Cardiovascular: Rate/Rhythm: regular rate and regular rhythm Extremities: + edema (2-3+ BLE) Gastrointestinal (Abdomen): Inspection/Auscultation: normal bowel sounds Percussion/Palpation: abdomen soft; abdomen nontender Musculoskeletal: Extremities: + abnormal strength (generalized weakness, gracie L side) Skin: no rashes, warm and dry Neurologic: awake rabago, fluent speech, generalized weakness Psychiatric: Orientation: alert and oriented x 3 Genitourinary: mccurdy present Results & Data ([facility]) Vital Signs (Past 12 Hours) Vital Signs Temp Pulse Pulse Resp BP Pulse Ox 01/10/21 15:00 82 01/10/21 14:20 36.5 C 81 20 114/74 99 01/10/21 11:16 36.2 C L 81 20 102/68 97 01/10/21 07:56 36.7 C 84 20 110/67 98 01/10/21 07:09 78 Laboratory Results 01/10/21 06:16 01/10/21 06:16
[2021-01-10] MEDS ORDERED: FUROSEMIDE 20 MG in SYRINGE 0 ML IV SCH (17:30)
[2021-01-10] MEDS: FUROSEMIDE 10 MG in SYRINGE 0 ML IV SCH ×2 (17:31→20:15)
[2021-01-10] MEDS: POLYETHYLENE (MIRALAX) 17 GM PACK PO SCH (17:31)
[2021-01-10] MEDS: ATORVASTATIN 40 MG TAB PO SCH (20:13)
[2021-01-10] MEDS: DULoxetine HCL 20 MG CAP PO SCH (20:13)
[2021-01-10] MEDS: DOCUSATE SODIUM/SENNA 50/8.6MG TAB PO SCH (20:16)
[2021-01-11] MEDS: oxyCODONE HCL IR 5 MG TAB (IMMEDIATE RELEASE) PO PRN ×2 (04:17→13:22)
[2021-01-11] MEDS: METOPROLOL SUCC 25MG EXT REL TAB PO SCH ×2 (07:27→20:26)
[2021-01-11] MEDS: buPROPion SR 100 MG TABCR PO SCH ×2 (07:28→20:23)
[2021-01-11] MEDS: ADVANCED PROBIOTIC 1250 MG CAPSULE PO SCH (07:29)
[2021-01-11] MEDS: CHOLECALCIFEROL 1,000 UNITS 25 MCG TAB PO SCH (07:29)
[2021-01-11] MEDS: AMOXICILLIN/CLAVULANATE 500 MG TAB PO SCH ×2 (07:29→16:49)
[2021-01-11] MEDS: PANTOprazole 40 MG TAB PO SCH (07:30)
[2021-01-11] MEDS: busPIRone 5 MG TAB PO SCH ×3 (07:30→20:23)
[2021-01-11] MEDS: CARBOHYDRATES FOR HYPOGLYCEMIA PO PRN ×2 (07:45→08:00)
[2021-01-11] MEDS: POLYETHYLENE (MIRALAX) 17 GM PACK PO SCH (08:23)
[2021-01-11] MEDS: FUROSEMIDE 10 MG in SYRINGE 0 ML IV SCH ×3 (08:24→20:29)
[2021-01-11] MEDS: DOCUSATE SODIUM 100 MG CAP PO SCH ×2 (08:24→20:30)
[2021-01-11 09:12] LABS: BUN Creatinine Ratio 20.7 (10-20); Creatinine Clr Calc Pharmacy 29.4 ml/min; Est GFR (African American) 28.5; Est GFR (Non-African American) 24.6; Potassium 3.8 mmol/L (3.5-5.1)
[2021-01-11] MEDS: ENOXAPARIN INJ 40 MG/0.4 ML SYR SQ SCH (14:22)
--- NOTE | 2021-01-11 16:18 | Hospitalist Progress Note ---
Date of Service January 11, 2021 Assessment & Plan (1) Sepsis: Patient is a 75 yr female with H/O DM II, chronic diastolic heart failure, aortic stenosis, CKD III, HTN, CVA, PVD, COPD, uterine cancer s/p radiation, gastric bypass, mood disorder, factor V Leiden mutation, colitis, recurrent UTI secondary to obstructive uropathy presented to ER with complaint of nausea and generalized weakness. Septic Shock -due to complicated UTI resolved , vitals been stable Likely Source: Complicated UTI H/O Left ureteral stent placement by Dr. Castellanos on 12/02/2020. --CT ABD:Interval resolution of the left-sided hydronephrosis. The left ureteral stent is unchanged in position. There remains a punctate mid left ureteral stone adjacent to the ureteral stent. Stable left-sided nephrolithiasis. Stable punctate bladder calculi. Near complete resolution of the colitis with only mild pericolonic fat stranding remaining at the mid sigmoid colon. No evidence for bowel obstruction. Severe body wall edema which has progressed. Cholelithiasis. Trace left pleural effusion has also improved. Persistent bladder wall thickening. -CXR:No acute cardiopulmonary findings. No change in appearance of the chest. -Negative COVID Screen -Normal Lactate levels -Blood Cx: Negative to date -Urine Culture: Klebsiella, Enterococcus VRE (Enterococcus VRE likely colonization as per ID) - Appreciate ID input d/c Meropenem>> transition to Augmentin : last dose on 01/13 - -No indication for stent manipulation or exchange as per urology -Continue current medications SELWYN on CKD III Likely ATN Baseline Cr:~1. Cr cont to improve :2.4>2.2>1.9 CT ABD as above Avoid nephrotoxic agents as able Home diuretics, Bactrim held Monitor renal function nephrology following RUQ ABD pain Liver USD:Cholelithiasis. No evidence for acute cholecystitis. Largely obscured pancreas. No biliary ductal dilatation. Abdominal pain resolved Monitor Recent colitis/hematochezia no further GI symptoms CT abdomen pelvis shows near complete resolution of colitis H/O poor bowel prep for colonoscopies in past. Outpatient colonoscopy planned Elevated troponin In setting of renal failure Trend troponin ECHO: Left ventricle wall motion is normal. Factor V Leiden mutation/H/O Recurrent PE/DVT S/P IVC filter placement Off Coumadin secondary to recurrent hematochezia hx of DM II-currently not diabetic Last Hb A1C: 4.6 in 12/2020- multiple episodes of hypoglycemia noted D/c insulin SSI regular diet Chronic diastolic heart failure EF 55 to 59%, TTE 2019 monitor I's and O's Diuretics held due to SELWYN Monitor volume status Severe aortic stenosis TAVR contemplated in the future pending cardiac catheterization Cardiology following H/O CVA, PVD Continue statin Uterine Cancer S/P Radiation Mood disorder Continue bupropion, buspirone, Cymbalta Generalized weakness, deconditioning Ongoing for months. Patient with history recurrent hospitalizations PT/OT eval DVT Px: Lovenox SQ Code Status DNI disposition : continue to monitor in tele PT/OT eval requested Admission and Anticipated Discharge Date Admission Date: January 05, 2021 Subjective had bowel movement today feels better appetite is still poor no complain of shortness of breath , no cough , no fever or chills Review of Systems Review of Systems: All systems reviewed & are unremarkable except as noted in Subjective Physical Exam Physical Exam: Physical Exam Constitutional + morbidly obese, + frail appearing and cooperative; no acute distress ENMT Eyes EOM intact bilaterally Ears: no external ear abnormality Nose: no external nose abnormality Mouth: + dry oral mucous membranes Neck no nuchal rigidity Respiratory normal respiratory effort Auscultation: lungs clear to auscultation bilaterally and + diminished lung sounds Cardiovascular Rate/Rhythm: regular rate and regular rhythm Extremities: + edema (2-3+ BLE) Gastrointestinal (Abdomen) Inspection/Auscultation: normal bowel sounds Percussion/Palpation: abdomen soft; abdomen nontender Musculoskeletal Extremities: + abnormal strength (generalized weakness, gracie L side) Skin no rashes, warm and dry Neurologic awake , alert, fluent speech, generalized weakness Psychiatric Orientation: alert and oriented x 3 Genitourinary mccurdy present Results & Data Results & Data ([facility]) Vital Signs (Past 12 Hours) Vital Signs Temp Pulse Pulse Resp BP Pulse Ox 01/11/21 15:34 36.5 C 76 18 100/55 L 100 01/11/21 11:34 36.3 C L 73 20 95/61 L 97 01/11/21 08:30 73 01/11/21 08:06 36.6 C 72 20 117/75 90
--- NOTE | 2021-01-11 17:40 | Nephrology Progress Note ---
Date of Service January 11, 2021 Assessment & Plan (1) SELWYN (acute kidney injury): Stage 2 oliguric SELWYN from ATN; stable creatinine past few days. Initial oliguria resolved. baseline creatinine 1.1-1.2 but fairly labile. her hypotension has not been protracted or severe but may be contributing to SELWYN. remains volume overloaded but chemistries generally ok for now (K supplemented this am); proteinuria assessment is probably meaningless in a patient like this w/ her chronic mccurdy and chronically inflamed urine; note of course some creatinine elevation may reflect bactrim use -daily bmp reasonable for now -protein/creat ratio again would have been more helpful if wnl; doubt she truly has nephrotic syndrome/suspect lower tract proteinuria at least in part -no indication to discuss / consider dialysis at this time -urology eval appreciated ->>>>continue cautious trial of lasix 10 mg IV tid; as OP takes 60 mg alt w/ 40 mg daily lasix (2) Anasarca: c/b profound hypoalbuminemia -agree w/ <2 gm daily Na diet >>>>eval for malnutrition -pt states lasix makes her mouth too dry to swallow and that she's too weak to use spray at times >>>>states dry mouth keep her from eating>> cont to hold oxybutynin -diuretics as above >appreciate RD follow up; trial of protein supplements (3) Recurrent UTI (urinary tract infection): -cont meropenem, f/u cultures > urine w/ strep, klebsiella (4) Sepsis associated hypotension: s/p 3+ L fluid resuscitation; preserved EF; off pressors now. resolved >> resuming home dose metoprolol for sinus tach in setting of severe ; cautious diuretic trial Admission and Anticipated Discharge Date Admission Date: January 05, 2021 Subjective seen on round sthis am at 0840; eating better; did c/o abd pain. Review of Systems Review of Systems: All systems reviewed & are unremarkable except as noted in Subjective Physical Exam Constitutional: + morbidly obese, + frail appearing and cooperative; no acute distress Eyes: EOM intact bilaterally ENMT: Ears: no external ear abnormality Nose: no external nose abnormality Mouth: + dry oral mucous membranes Neck: no nuchal rigidity Respiratory: normal respiratory effort Auscultation: lungs clear to auscultation bilaterally and + diminished lung sounds Cardiovascular: Rate/Rhythm: regular rate and regular rhythm Extremities: + edema (2+ BLE) Gastrointestinal (Abdomen): Inspection/Auscultation: normal bowel sounds Percussion/Palpation: abdomen soft; abdomen nontender Musculoskeletal: Extremities: + abnormal strength (generalized weakness, gracie L side) Skin: no rashes, warm and dry Neurologic: awake Psychiatric: Orientation: alert and oriented x 3 Genitourinary: mccurdy Results & Data ([facility]) Vital Signs (Past 12 Hours) Vital Signs Temp Pulse Pulse Resp BP Pulse Ox 01/11/21 16:36 73 01/11/21 15:34 36.5 C 76 18 100/55 L 100 01/11/21 11:34 36.3 C L 73 20 95/61 L 97 01/11/21 08:30 73 01/11/21 08:06 36.6 C 72 20 117/75 90 Laboratory Results 01/10/21 06:16 01/11/21 08:06
[2021-01-11] MEDS: ATORVASTATIN 40 MG TAB PO SCH (20:24)
[2021-01-11] MEDS: DOCUSATE SODIUM/SENNA 50/8.6MG TAB PO SCH (20:24)
[2021-01-11] MEDS: DULoxetine HCL 20 MG CAP PO SCH (20:24)
[2021-01-12] MEDS: oxyCODONE HCL IR 5 MG TAB (IMMEDIATE RELEASE) PO PRN ×2 (05:07→13:06)
[2021-01-12 06:58] LABS: BUN Creatinine Ratio 22.4 (10-20); Calcium 7.6 mg/dl (8.5-10.1); Creatinine Clr Calc Pharmacy 33.3 ml/min; Est GFR (African American) 33.1; Est GFR (Non-African American) 28.6
[2021-01-12] MEDS: POLYETHYLENE (MIRALAX) 17 GM PACK PO SCH (08:51)
[2021-01-12] MEDS: AMOXICILLIN/CLAVULANATE 500 MG TAB PO SCH ×2 (08:51→17:08)
[2021-01-12] MEDS: FUROSEMIDE 10 MG in SYRINGE 0 ML IV SCH ×3 (08:51→21:01)
[2021-01-12] MEDS: busPIRone 5 MG TAB PO SCH ×3 (08:51→20:57)
[2021-01-12] MEDS: ADVANCED PROBIOTIC 1250 MG CAPSULE PO SCH (08:51)
[2021-01-12] MEDS: METOPROLOL SUCC 25MG EXT REL TAB PO SCH ×2 (08:52→20:58)
[2021-01-12] MEDS: CHOLECALCIFEROL 1,000 UNITS 25 MCG TAB PO SCH (08:52)
[2021-01-12] MEDS: PANTOprazole 40 MG TAB PO SCH (08:52)
[2021-01-12] MEDS: buPROPion SR 100 MG TABCR PO SCH ×2 (08:53→20:59)
--- NOTE | 2021-01-12 09:46 | Nephrology Progress Note ---
Date of Service January 12, 2021 Assessment & Plan (1) SELWYN (acute kidney injury): Stage 2 oliguric SELWYN from ATN; stable creatinine past few days. Initial oliguria resolved. baseline creatinine 1.1-1.2 but fairly labile. her hypotension has not been protracted or severe but may be contributing to SELWYN. remains volume overloaded but chemistries generally ok for now ; proteinuria assessment is probably meaningless in a patient like this w/ her chronic mccurdy and chronically inflamed urine; note of course some creatinine elevation may reflect bactrim use -daily bmp reasonable for now -urology eval appreciated ->>>>again continue cautious trial of lasix 10 mg IV tid as bp tolerates; as OP takes 60 mg alt w/ 40 mg daily lasix (2) Anasarca: c/b profound hypoalbuminemia -agree w/ <2 gm daily Na diet >>>>eval for malnutrition -pt states lasix makes her mouth too dry to swallow and that she's too weak to use spray at times >>>>states dry mouth keep her from eating>> cont to hold oxybutynin -diuretics as above >appreciate RD follow up; trial of protein supplements (3) Recurrent UTI (urinary tract infection): -cont meropenem, f/u cultures > urine w/ strep, klebsiella (4) Sepsis associated hypotension: s/p 3+ L fluid resuscitation; preserved EF; off pressors now. resolved >> resuming home dose metoprolol for sinus tach in setting of severe ; naheed s diuretic trial Admission and Anticipated Discharge Date Admission Date: January 05, 2021 Subjective no acute interval events; struggling to eat; edema less Review of Systems Review of Systems: All systems reviewed & are unremarkable except as noted in Subjective Physical Exam Constitutional: + morbidly obese, + frail appearing and cooperative; no acute distress Eyes: EOM intact bilaterally ENMT: Ears: no external ear abnormality Nose: no external nose abnormality Mouth: + dry oral mucous membranes Neck: no nuchal rigidity Respiratory: normal respiratory effort Auscultation: lungs clear to auscultation bilaterally and + diminished lung sounds Cardiovascular: Rate/Rhythm: regular rate and regular rhythm Extremities: + edema (2+ BLE but less taut) Gastrointestinal (Abdomen): Inspection/Auscultation: normal bowel sounds Percussion/Palpation: abdomen soft; abdomen nontender Musculoskeletal: Extremities: + abnormal strength (generalized weakness, gracie L side) Skin: no rashes, warm and dry Neurologic: awake Psychiatric: Orientation: alert and oriented x 3 Genitourinary: mccurdy + Results & Data ([facility]) Vital Signs (Past 12 Hours) Vital Signs Temp Pulse Pulse Resp BP BP Pulse Ox 01/12/21 08:19 36.6 C 78 18 103/69 99 01/12/21 07:26 76 01/12/21 03:00 36.6 C 78 20 101/66 98 01/11/21 23:00 78 01/11/21 22:56 36.5 C 78 20 108/71 98 Laboratory Results 01/10/21 06:16 01/12/21 05:57
[2021-01-12] MEDS: DOCUSATE SODIUM 100 MG CAP PO SCH ×2 (11:34→21:01)
--- NOTE | 2021-01-12 14:15 | Cardiology Progress Note ---
Date of Service January 12, 2021 Assessment & Plan (1) Aortic stenosis, severe: Septic shock physiology improved. ANGE on hold given multiple problems. SELWYN noted. Typically on furosemide 80 mg alternating with 60 mg orally as an outpatient. Nephrology input noted and appreciated, creatinine has trended down from a peak of 2.4-1.73. Continue furosemide 10 mg IV 3 times daily. Sinus tachycardia improved on prior to hospital dose of metoprolol succinate 12.5 mg twice daily. Continue Lovenox 40 mg subcutaneously daily for DVT prophylaxis. ANGE work up as outpatient , however, noncardiac medical problems continue to be a barrier to work-up/intervention. Admission and Anticipated Discharge Date Admission Date: January 05, 2021 Subjective Patient seen in follow-up of her history of severe aortic stenosis. She notes mild interval improvement in terms of her energy levels. Telemetry reveals sinus rhythm in the 70s to 80s. Physical Exam Physical Exam: Temp Pulse Resp BP Pulse Ox 36.4 C L 73 18 103/72 99 01/12/21 10:46 01/12/21 10:46 01/12/21 10:46 01/12/21 10:46 01/12/21 10:46 Constitutional: WD/WN, vitals as above Respiratory: normal respiratory effort, lungs clear to auscultation Cardiovascular: Rate/Rhythm: regular rhythm Heart Sounds: + murmur (I/ SM) Vessels: no JVD Extremities: + edema (1+ LE edema (improving)) Gastrointestinal (Abdomen): normal bowel sounds, soft, nontender, no hepatosplenomegaly Neurologic: PERRL, EOMI, accommodation nl, no face palsy, no dysarthria Results & Data ([facility]) Vital Signs (Past 12 Hours) Vital Signs Temp Pulse Pulse Resp BP BP Pulse Ox 01/12/21 10:46 36.4 C L 73 18 103/72 99 01/12/21 08:19 36.6 C 78 18 103/69 99 01/12/21 07:26 76 01/12/21 03:00 36.6 C 78 20 101/66 98 Laboratory Results Comprehensive Metabolic Panel 01/12/21 Range/Units 05:57 Sodium 138 (136-145) mmol/L Potassium 4.0 (3.5-5.1) mmol/L Chloride 109 H (98-107) mmol/L Carbon Dioxide 23 (21-32) mmol/L BUN 39 H (7-18) mg/dl Creatinine 1.73 H (0.6-1.2) mg/dl Glucose 65 L (70-99) mg/dl Calcium 7.6 L (8.5-10.1) mg/dl Intake and Output 01/11/21 01/12/21 01/12/21 22:59 06:59 14:59 Intake Total 150 / 300 150 / 300 Output Total 350 / 950 300 / 950 Balance -200 / -650 -150 / -650 Intake: Oral 150 / 300 150 / 300 Output: Urine 300 / 300 Urine Amount (Catheter) 350 / 650 Ramírez/Indwelling 350 / 650 Other: Weight 96 kg Patient Weight 01/13/21 06:59 Weight 96 kg
[2021-01-12] MEDS: ENOXAPARIN INJ 40 MG/0.4 ML SYR SQ SCH (14:19)
--- NOTE | 2021-01-12 16:57 | Hospitalist Progress Note ---
Date of Service January 12, 2021 Assessment & Plan (1) Sepsis: Patient is a 75 yr female with H/O DM II, chronic diastolic heart failure, aortic stenosis, CKD III, HTN, CVA, PVD, COPD, uterine cancer s/p radiation, gastric bypass, mood disorder, factor V Leiden mutation, colitis, recurrent UTI secondary to obstructive uropathy presented to ER with complaint of nausea and generalized weakness. Septic Shock -due to complicated UTI resolved , vitals been stable Likely Source: Complicated UTI H/O Left ureteral stent placement by Dr. Castellanos on 12/02/2020. --CT ABD:Interval resolution of the left-sided hydronephrosis. The left ureteral stent is unchanged in position. There remains a punctate mid left ureteral stone adjacent to the ureteral stent. Stable left-sided nephrolithiasis. Stable punctate bladder calculi. Near complete resolution of the colitis with only mild pericolonic fat stranding remaining at the mid sigmoid colon. No evidence for bowel obstruction. Severe body wall edema which has progressed. Cholelithiasis. Trace left pleural effusion has also improved. Persistent bladder wall thickening. -CXR:No acute cardiopulmonary findings. No change in appearance of the chest. -Negative COVID Screen -Normal Lactate levels -Blood Cx: Negative to date -Urine Culture: Klebsiella, Enterococcus VRE (Enterococcus VRE likely colonization as per ID) - Appreciate ID input d/c Meropenem>> transition to Augmentin : last dose on tomorrow 01/13/2021 - -No indication for stent manipulation or exchange as per urology -Continue current medications SELWYN on CKD III Likely ATN Baseline Cr:~1. Avoid nephrotoxic agents as able Home diuretics, Bactrim held Monitor renal function nephrology following RUQ ABD pain Liver USD:Cholelithiasis. No evidence for acute cholecystitis. Largely obscured pancreas. No biliary ductal dilatation. Abdominal pain resolved Monitor Recent colitis/hematochezia no further GI symptoms CT abdomen pelvis shows near complete resolution of colitis H/O poor bowel prep for colonoscopies in past. Outpatient colonoscopy planned Elevated troponin In setting of renal failure /evidence of ACS Trend troponin ECHO: Left ventricle wall motion is normal. Factor V Leiden mutation/H/O Recurrent PE/DVT S/P IVC filter placement Off Coumadin secondary to recurrent hematochezia High risk for bleeding complication, poor candidate for long-term anticoagulation Hypoglycemia: Last Hb A1C: 4.6 in 12/2020-patient is not diabetic multiple episodes of hypoglycemia noted D/c insulin SSI regular diet /BSG improved after liberalization of diet Chronic diastolic heart failure EF 55 to 59%, TTE 2019 monitor I's and O's Diuretics dose adjusted by nephrology, continue to monitor renal function Severe aortic stenosis TAVR contemplated in the future pending cardiac catheterization Cardiology following -appreciate input Patient remains acutely ill with infection/sepsis, renal failure Needs to improve clinically before considering cardiac intervention History of uterine Cancer S/P Radiation DVT Px: Lovenox SQ Code Status DNI disposition : lives at home ( primarily bedbound ) son is the primary care technician Patient will benefit with skilled rehab on discharge form Hospital appreciate input from Case Management pt prefers [facility] - [facility] is not accepting new admissions until 01/22. referral made to [facility] as well Son Shon Osorio -updated over phone , Admission and Anticipated Discharge Date Admission Date: January 05, 2021 Subjective feels the same , offers no new complain , says appetite is getting better had bowel movement yesterday no nausea , vomiting or abdominal pain Review of Systems Review of Systems: All systems reviewed & are unremarkable except as noted in Subjective Physical Exam Physical Exam: Physical Exam Constitutional + morbidly obese, + frail appearing and cooperative; no acute distress ENMT Eyes EOM intact bilaterally Ears: no external ear abnormality Nose: no external nose abnormality Mouth: + dry oral mucous membranes Neck no nuchal rigidity Respiratory normal respiratory effort Auscultation: lungs clear to auscultation bilaterally and + diminished lung sounds Cardiovascular Rate/Rhythm: regular rate and regular rhythm Extremities: + edema (2-3+ BLE) Gastrointestinal (Abdomen) Inspection/Auscultation: normal bowel sounds Percussion/Palpation: abdomen soft; abdomen nontender Musculoskeletal Extremities: + abnormal strength (generalized weakness, gracie L side) Skin no rashes, warm and dry Neurologic awake , alert, fluent speech, generalized weakness Psychiatric Orientation: alert and oriented x 3 Genitourinary mccurdy present Results & Data Results & Data ([facility]) Vital Signs (Past 12 Hours) Vital Signs Temp Pulse Pulse Resp BP Pulse Ox 01/12/21 15:43 75 01/12/21 15:17 36.5 C 84 18 90/61 L 99 01/12/21 10:46 36.4 C L 73 18 103/72 99 01/12/21 08:19 36.6 C 78 18 103/69 99 01/12/21 07:26 76
[2021-01-12] MEDS: ATORVASTATIN 40 MG TAB PO SCH (20:58)
[2021-01-12] MEDS: DOCUSATE SODIUM/SENNA 50/8.6MG TAB PO SCH (20:58)
[2021-01-12] MEDS: DULoxetine HCL 20 MG CAP PO SCH (20:58)
[2021-01-13] MEDS: ALUMINUM/MAGNESIUM/SIMETH (MAALOX MAX) 30 ML UDC PO PRN (03:04)
[2021-01-13] MEDS: PANTOprazole 40 MG TAB PO SCH (08:22)
[2021-01-13] MEDS: AMOXICILLIN/CLAVULANATE 500 MG TAB PO SCH ×2 (08:22→16:51)
[2021-01-13] MEDS: METOPROLOL SUCC 25MG EXT REL TAB PO SCH ×2 (08:23→21:01)
[2021-01-13] MEDS: ADVANCED PROBIOTIC 1250 MG CAPSULE PO SCH (08:23)
[2021-01-13] MEDS: buPROPion SR 100 MG TABCR PO SCH ×2 (08:23→21:00)
[2021-01-13] MEDS: busPIRone 5 MG TAB PO SCH ×3 (08:23→21:00)
[2021-01-13] MEDS: CHOLECALCIFEROL 1,000 UNITS 25 MCG TAB PO SCH (08:24)
[2021-01-13] MEDS: POLYETHYLENE (MIRALAX) 17 GM PACK PO SCH (08:26)
[2021-01-13] MEDS: FUROSEMIDE 10 MG in SYRINGE 0 ML IV SCH ×3 (08:26→21:00)
[2021-01-13] MEDS: DOCUSATE SODIUM 100 MG CAP PO SCH (08:26)
[2021-01-13 09:21] LABS: BUN Creatinine Ratio 22.2 (10-20); Calcium 8.1 mg/dl (8.5-10.1); Creatinine Clr Calc Pharmacy 35.5 ml/min; Est GFR (African American) 35.9; Est GFR (Non-African American) 30.9; Potassium 3.5 mmol/L (3.5-5.1)
[2021-01-13] MEDS: oxyCODONE HCL IR 5 MG TAB (IMMEDIATE RELEASE) PO PRN ×3 (12:32→21:00)
[2021-01-13] MEDS: ENOXAPARIN INJ 40 MG/0.4 ML SYR SQ SCH (13:23)
--- NOTE | 2021-01-13 18:04 | Hospitalist Progress Note ---
Date of Service January 13, 2021 Assessment & Plan (1) Sepsis: Patient is a 75 yr female with H/O DM II, chronic diastolic heart failure, aortic stenosis, CKD III, HTN, CVA, PVD, COPD, uterine cancer s/p radiation, gastric bypass, mood disorder, factor V Leiden mutation, colitis, recurrent UTI secondary to obstructive uropathy presented to ER with complaint of nausea and generalized weakness. Septic Shock -due to complicated UTI resolved , vitals been stable Likely Source: Complicated UTI H/O Left ureteral stent placement by Dr. Castellanos on 12/02/2020. --CT ABD:Interval resolution of the left-sided hydronephrosis. The left ureteral stent is unchanged in position. There remains a punctate mid left ureteral stone adjacent to the ureteral stent. Stable left-sided nephrolithiasis. Stable punctate bladder calculi. Near complete resolution of the colitis with only mild pericolonic fat stranding remaining at the mid sigmoid colon. No evidence for bowel obstruction. Severe body wall edema which has progressed. Cholelithiasis. Trace left pleural effusion has also improved. Persistent bladder wall thickening. -CXR:No acute cardiopulmonary findings. No change in appearance of the chest. -Negative COVID Screen -Normal Lactate levels -Blood Cx: Negative to date -Urine Culture: Klebsiella, Enterococcus VRE (Enterococcus VRE likely colonization as per ID) - Appreciate ID input d/c Meropenem>> transition to Augmentin : last dose on today 01/13/2021 - -No indication for stent manipulation or exchange as per urology -Continue current medications SELWYN on CKD III Likely ATN Baseline Cr:~1. Avoid nephrotoxic agents as able Home diuretics, Bactrim held Monitor renal function, cr level imroved 1.6 nephrology following RUQ ABD pain Liver USD:Cholelithiasis. No evidence for acute cholecystitis. Largely obscured pancreas. No biliary ductal dilatation. Abdominal pain resolved Monitor Recent colitis/hematochezia no further GI symptoms CT abdomen pelvis shows near complete resolution of colitis H/O poor bowel prep for colonoscopies in past. Outpatient colonoscopy planned Elevated troponin In setting of renal failure /evidence of ACS Trend troponin ECHO: Left ventricle wall motion is normal. Factor V Leiden mutation/H/O Recurrent PE/DVT S/P IVC filter placement Off Coumadin secondary to recurrent hematochezia High risk for bleeding complication, poor candidate for long-term anticoagulation Hypoglycemia: Last Hb A1C: 4.6 in 12/2020-patient is not diabetic multiple episodes of hypoglycemia noted D/c insulin SSI regular diet /BSG improved after liberalization of diet Chronic diastolic heart failure EF 55 to 59%, TTE 2019 monitor I's and O's Diuretics dose adjusted by nephrology, continue to monitor renal function Severe aortic stenosis TAVR contemplated in the future pending cardiac catheterization Cardiology following -appreciate input Patient remains acutely ill with infection/sepsis, renal failure Needs to improve clinically before considering cardiac intervention History of uterine Cancer S/P Radiation DVT Px: Lovenox SQ Code Status DNI disposition : lives at home ( primarily bedbound ) son is the primary manager respiratory care Patient will benefit with skilled rehab on discharge form Hospital appreciate input from Case Management pt prefers [facility] - [facility] is not accepting new admissions until 01/22. referral made to [facility] as well Son Shon Osorio -updated over phone , Admission and Anticipated Discharge Date Admission Date: January 05, 2021 Physical Exam Physical Exam: Physical Exam Constitutional + morbidly obese, + frail appearing and cooperative; no acute distress ENMT Eyes EOM intact bilaterally Ears: no external ear abnormality Nose: no external nose abnormality Mouth: + dry oral mucous membranes Neck no nuchal rigidity Respiratory normal respiratory effort Auscultation: lungs clear to auscultation bilaterally and + diminished lung sounds Cardiovascular Rate/Rhythm: regular rate and regular rhythm Extremities: + edema (2-3+ BLE) Gastrointestinal (Abdomen) Inspection/Auscultation: normal bowel sounds Percussion/Palpation: abdomen soft; abdomen nontender Musculoskeletal Extremities: + abnormal strength (generalized weakness, gracie L side) Skin no rashes, warm and dry Neurologic awake , alert, fluent speech, generalized weakness Psychiatric Orientation: alert and oriented x 3 Genitourinary mccurdy present Results & Data Results & Data ([facility]) Vital Signs (Past 12 Hours) Vital Signs Temp Pulse Pulse Resp BP Pulse Ox 01/13/21 16:19 36.5 C 90 19 118/83 99 01/13/21 14:50 86 01/13/21 12:08 36.5 C 82 19 96/65 L 98 01/13/21 11:33 77 01/13/21 08:07 37.0 C 77 18 130/83 95
--- NOTE | 2021-01-13 18:48 | Nephrology Progress Note ---
Date of Service January 13, 2021 Assessment & Plan (1) SELWYN (acute kidney injury): Stage 2 oliguric SELWYN from ATN; stable creatinine past few days. Initial oliguria resolved. baseline creatinine 1.1-1.2 but fairly labile. her hypotension has not been protracted or severe but may be contributing to SELWYN. remains volume overloaded but chemistries generally ok for now ; proteinuria assessment is probably meaningless in a patient like this w/ her chronic mccurdy and chronically inflamed urine; note of course some creatinine elevation may reflect bactrim use -Renal functions improving, UOP has been reasonable.- -Continue on lasix 10 mg IV tid as bp tolerates as look comfortable with this dose, as OP takes 60 mg alt w/ 40 mg daily lasix (2) Anasarca: c/b profound hypoalbuminemia -<2 gm daily Na diet -diuretics as above >appreciate RD follow up; trial of protein supplements (3) Recurrent UTI (urinary tract infection): -cont abx as , f/u cultures > urine w/ strep, klebsiella (4) Sepsis associated hypotension: s/p 3+ L fluid resuscitation; preserved EF; off pressors now. resolved >> resuming home dose metoprolol for sinus tach in setting of severe ; on cautious diuretic trial Admission and Anticipated Discharge Date Admission Date: January 05, 2021 Subjective Stable, no new complain , Not in distress, UOP @1 lit Review of Systems Review of Systems: All systems reviewed & are unremarkable except as noted in HPI & below Physical Exam Physical Exam: Constitutional:In no acute distress, frail looking Eyes: PERRL, EOMI, conjunctivae normal, anicteric sclerae Respiratory: nonlabored breathing, CTAB Cardiovascular: RRR, s1/s2, Ext-b/l +2 lower ext edema Abdomen: normal bowel sounds, soft, nontender Skin: no rashes, warm and dry normal turgor Neurologic:N focal neurology, moves all extremities Psychiatric: A+Ox3 Results & Data ([facility]) Vital Signs (Past 12 Hours) Vital Signs Temp Pulse Pulse Resp BP Pulse Ox 01/13/21 16:19 36.5 C 90 19 118/83 99 01/13/21 14:50 86 01/13/21 12:08 36.5 C 82 19 96/65 L 98 01/13/21 11:33 77 01/13/21 08:07 37.0 C 77 18 130/83 95 Laboratory Results 01/10/21 06:16 01/13/21 08:33
[2021-01-13] MEDS: ATORVASTATIN 40 MG TAB PO SCH (21:00)
[2021-01-13] MEDS: DULoxetine HCL 20 MG CAP PO SCH (21:00)
[2021-01-13] MEDS: DOCUSATE SODIUM/SENNA 50/8.6MG TAB PO SCH (21:01)
[2021-01-13] MEDS ORDERED: ZOLPIDEM TARTRATE 5 MG TAB PO STA (21:08)
[2021-01-14 07:01] LABS: BUN Creatinine Ratio 26.1 (10-20); Creatinine Clr Calc Pharmacy 37.5 ml/min; Est GFR (African American) 39.1; Est GFR (Non-African American) 33.7; Potassium 3.3 mmol/L (3.5-5.1)
[2021-01-14] MEDS: buPROPion SR 100 MG TABCR PO SCH ×2 (08:01→20:48)
[2021-01-14] MEDS: AMOXICILLIN/CLAVULANATE 500 MG TAB PO SCH ×2 (08:02→17:34)
[2021-01-14] MEDS: METOPROLOL SUCC 25MG EXT REL TAB PO SCH ×2 (08:03→20:48)
[2021-01-14] MEDS: FUROSEMIDE 10 MG in SYRINGE 0 ML IV SCH ×3 (08:05→20:47)
[2021-01-14] MEDS: CHOLECALCIFEROL 1,000 UNITS 25 MCG TAB PO SCH (08:05)
[2021-01-14] MEDS: ADVANCED PROBIOTIC 1250 MG CAPSULE PO SCH (08:05)
[2021-01-14] MEDS: busPIRone 5 MG TAB PO SCH ×3 (08:06→20:46)
[2021-01-14] MEDS: POLYETHYLENE (MIRALAX) 17 GM PACK PO SCH (08:06)
[2021-01-14] MEDS: PANTOprazole 40 MG TAB PO SCH (08:06)
[2021-01-14] MEDS: oxyCODONE HCL IR 5 MG TAB (IMMEDIATE RELEASE) PO PRN ×3 (08:08→20:49)
--- NOTE | 2021-01-14 09:10 | Nephrology Progress Note ---
Date of Service January 14, 2021 Assessment & Plan (1) SELWYN (acute kidney injury): Stage 2 oliguric SELWYN from ATN; stable creatinine past few days. Initial oliguria resolved. baseline creatinine 1.1-1.2 but fairly labile. Her hypotension has not been protracted or severe but may be contributing to SELWYN. remains volume overloaded but chemistries generally ok ; proteinuria assessment is probably meaningless in a patient like this w/ her chronic mccurdy and chronically inflamed urine;some creatinine elevation may reflect bactrim use -Renal functions improving, UOP has been reasonable.- -Continue on lasix 10 mg IV tid as bp tolerates as look comfortable with this dose, as OP takes 60 mg alt w/ 40 mg daily lasix (2) Anasarca: c/b profound hypoalbuminemia -<2 gm daily Na diet -diuretics as above >appreciate RD follow up; trial of protein supplements (3) Recurrent UTI (urinary tract infection): -cont abx as , f/u cultures > urine w/ strep, klebsiella (4) Sepsis associated hypotension: s/p 3+ L fluid resuscitation; preserved EF; off pressors now. resolved >> resuming home dose metoprolol for sinus tach in setting of severe ; on cautious diuretic trial. Admission and Anticipated Discharge Date Admission Date: January 05, 2021 Subjective Stable, no new complain,gets SOb on minimum exertion UOP @1 lit Review of Systems Review of Systems: All systems reviewed & are unremarkable except as noted in HPI & below and Other Edema 2+, not changed much. Physical Exam Physical Exam: Constitutional:In no acute distress, frail looking Eyes: PERRL, EOMI, conjunctivae normal, anicteric sclerae Respiratory: nonlabored breathing, CTAB Cardiovascular: RRR, s1/s2, Ext-b/l +2 lower ext edema Abdomen: normal bowel sounds, soft, nontender Skin: no rashes, warm and dry normal turgor Neurologic:N focal neurology, moves all extremities Psychiatric: A+Ox3 Results & Data ([facility]) Vital Signs (Past 12 Hours) Vital Signs Temp Pulse Pulse Resp BP Pulse Ox 01/14/21 07:36 36.4 C L 78 18 110/70 97 01/14/21 03:00 36.4 C L 85 16 99/66 L 97 01/14/21 00:20 83 01/13/21 22:57 36.6 C 87 18 115/76 99 Laboratory Results 01/10/21 06:16 01/14/21 05:59
[2021-01-14] MEDS: ENOXAPARIN INJ 40 MG/0.4 ML SYR SQ SCH (14:33)
--- NOTE | 2021-01-14 16:37 | Hospitalist Progress Note ---
Date of Service January 14, 2021 Assessment & Plan (1) Sepsis: Patient is a 75 yr female with H/O DM II, chronic diastolic heart failure, aortic stenosis, CKD III, HTN, CVA, PVD, COPD, uterine cancer s/p radiation, gastric bypass, mood disorder, factor V Leiden mutation, colitis, recurrent UTI secondary to obstructive uropathy presented to ER with complaint of nausea and generalized weakness. Septic Shock Resolved -due to complicated UTI resolved , vitals been stable Likely Source: Complicated UTI H/O Left ureteral stent placement by Dr. Castellanos on 12/02/2020. --CT ABD:Interval resolution of the left-sided hydronephrosis. The left ureteral stent is unchanged in position. There remains a punctate mid left ureteral stone adjacent to the ureteral stent. Stable left-sided nephrolithiasis. Stable punctate bladder calculi. Near complete resolution of the colitis with only mild pericolonic fat stranding remaining at the mid sigmoid colon. No evidence for bowel obstruction. Severe body wall edema which has progressed. Cholelithiasis. Trace left pleural effusion has also improved. Persistent bladder wall thickening. -CXR:No acute cardiopulmonary findings. No change in appearance of the chest. -Negative COVID Screen -Urine Culture: Klebsiella, Enterococcus VRE (Enterococcus VRE likely colonization as per ID) - Appreciate ID input d/c Meropenem>> transition to Augmentin : last dose complited 01/13/2021 - -No indication for stent manipulation or exchange as per urology -Continue current medications D/c Ramírez SELWYN on CKD III Likely ATN Baseline Cr:~1. Avoid nephrotoxic agents as able Home diuretics, Bactrim held Monitor renal function, cr level improved 1.6 nephrology following RUQ ABD pain Liver USD:Cholelithiasis. No evidence for acute cholecystitis. Largely obscured pancreas. No biliary ductal dilatation. Abdominal pain resolved Monitor Recent colitis/hematochezia no further GI symptoms CT abdomen pelvis shows near complete resolution of colitis H/O poor bowel prep for colonoscopies in past. Outpatient colonoscopy planned Elevated troponin In setting of renal failure /evidence of ACS Trend troponin ECHO: Left ventricle wall motion is normal. Factor V Leiden mutation/H/O Recurrent PE/DVT S/P IVC filter placement Off Coumadin secondary to recurrent hematochezia High risk for bleeding complication, poor candidate for long-term anticoagulation Hypoglycemia: Last Hb A1C: 4.6 in 12/2020-patient is not diabetic multiple episodes of hypoglycemia noted D/c insulin SSI regular diet /BSG improved after liberalization of diet Chronic diastolic heart failure EF 55 to 59%, TTE 2019 monitor I's and O's Diuretics dose adjusted by nephrology, continue to monitor renal function Severe aortic stenosis TAVR contemplated in the future pending cardiac catheterization Cardiology following -appreciate input Patient remains acutely ill with infection/sepsis, renal failure Needs to improve clinically before considering cardiac intervention History of uterine Cancer S/P Radiation DVT Px: Lovenox SQ Code Status DNI disposition : lives at home ( primarily bedbound ) son is the primary patient care manager Patient will benefit with skilled rehab on discharge form Hospital appreciate input from Case Management pt prefers [facility] - [facility] is not accepting new admissions until 01/22[facility] Son Shon Osorio -updated over phone , all questions answered pt requests a visit with her therapy Dog -communication order placed Admission and Anticipated Discharge Date Admission Date: January 05, 2021 Subjective pt reports feeling the same no complain of SOB , no cough no fever or chills appetite remains poor Back pain much improved after adjusting pain meds Review of Systems Review of Systems: All systems reviewed & are unremarkable except as noted in Subjective Physical Exam Physical Exam: Physical Exam Constitutional + morbidly obese, + frail appearing and cooperative; no acute distress ENMT Eyes EOM intact bilaterally Ears: no external ear abnormality Nose: no external nose abnormality Neck no nuchal rigidity Respiratory normal respiratory effort Auscultation: lungs clear to auscultation bilaterally and + diminished lung sounds Cardiovascular Rate/Rhythm: regular rate and regular rhythm Extremities: + edema (2-3+ BLE) Gastrointestinal (Abdomen) Inspection/Auscultation: normal bowel sounds Percussion/Palpation: abdomen soft; abdomen nontender Musculoskeletal Extremities: + abnormal strength (generalized weakness, gracie L side) Skin no rashes, warm and dry Neurologic awake , alert, fluent speech, generalized weakness Psychiatric Orientation: alert and oriented x 3 Results & Data Results & Data ([facility]) Vital Signs (Past 12 Hours) Vital Signs Temp Pulse Pulse Resp BP Pulse Ox 01/14/21 15:22 36.7 C 80 19 125/73 80 L 01/14/21 14:58 77 01/14/21 12:10 78 01/14/21 12:06 36.4 C L 71 18 117/77 97 01/14/21 07:36 36.4 C L 78 18 110/70 97
--- NOTE | 2021-01-14 17:24 | Communication Note ---
Date of Service: January 14, 2021 Urine Cytology result reviewed : Urine (cytologic evaluation in search of eosinophiles): - Severe acute cystitis is seen. - Eosinophiles are not seen on microscopy. - Fungal spores are identified. - The specimen is negative for high-grade urothelial carcinoma. Jeny Kirby MD
[2021-01-14] MEDS ORDERED: POTASSIUM CHLORIDE CRTAB 20 MEQ TABCR PO ONE (17:30)
[2021-01-14] MEDS: DULoxetine HCL 20 MG CAP PO SCH (20:46)
[2021-01-14] MEDS: ATORVASTATIN 40 MG TAB PO SCH (20:47)
[2021-01-14] MEDS: DOCUSATE SODIUM/SENNA 50/8.6MG TAB PO SCH (20:48)
[2021-01-15] MEDS: oxyCODONE HCL IR 5 MG TAB (IMMEDIATE RELEASE) PO PRN (01:15)
[2021-01-15 07:01] LABS: BUN Creatinine Ratio 31.4 (10-20); Calcium 7.7 mg/dl (8.5-10.1); Creatinine Clr Calc Pharmacy 43.8 ml/min; Est GFR (African American) 47.2; Est GFR (Non-African American) 40.8; Potassium 3.6 mmol/L (3.5-5.1)
[2021-01-15] MEDS: FUROSEMIDE 10 MG in SYRINGE 0 ML IV SCH ×3 (08:07→19:53)
[2021-01-15] MEDS: busPIRone 5 MG TAB PO SCH ×3 (08:07→19:58)
[2021-01-15] MEDS: POTASSIUM CHLORIDE CRTAB 20 MEQ TABCR PO SCH (08:08)
[2021-01-15] MEDS: AMOXICILLIN/CLAVULANATE 500 MG TAB PO SCH ×2 (08:08→17:20)
[2021-01-15] MEDS: buPROPion SR 100 MG TABCR PO SCH ×2 (08:08→19:53)
[2021-01-15] MEDS: ADVANCED PROBIOTIC 1250 MG CAPSULE PO SCH (08:08)
[2021-01-15] MEDS: PANTOprazole 40 MG TAB PO SCH (08:08)
[2021-01-15] MEDS: POLYETHYLENE (MIRALAX) 17 GM PACK PO SCH (08:09)
[2021-01-15] MEDS: CHOLECALCIFEROL 1,000 UNITS 25 MCG TAB PO SCH (08:09)
[2021-01-15] MEDS: METOPROLOL SUCC 25MG EXT REL TAB PO SCH ×2 (08:09→19:53)
--- NOTE | 2021-01-15 12:43 | Nephrology Progress Note ---
Date of Service January 15, 2021 Assessment & Plan (1) SELWYN (acute kidney injury): Now resolved stage 2 oliguric SELWYN from ATN; stable creatinine past few days. Initial oliguria resolved. baseline creatinine 1.1-1.2 but some lability. Her hypotension has not been protracted or severe but may be contributing to SELWYN. remains volume overloaded but chemistries generally ok ; proteinuria assessment is probably meaningless in a patient like this w/ her chronic mccurdy and chronically inflamed urine;some creatinine elevation may reflect bactrim use -Continue on lasix 10 mg IV tid as bp tolerates as look comfortable with this dose, as OP takes 60 mg alt w/ 40 mg daily lasix >>>push protein intake to help improve edema/lower lasix needs >>>did ask RD/nutrition to help improve her protein intake specifically -agree w/ standing K dose 20 mEq daily for now (2) Anasarca: c/b profound hypoalbuminemia -<2 gm daily Na diet -diuretics as above >appreciate RD follow up; trial of protein supplements (3) Recurrent UTI (urinary tract infection): -cont abx as , f/u cultures > urine w/ strep, klebsiella Admission and Anticipated Discharge Date Admission Date: January 05, 2021 Subjective no coplaints on rounds htis am at 1020; edema cont to improve some. struggles ongoing w/ po intake Review of Systems Review of Systems: All systems reviewed & are unremarkable except as noted in Subjective Physical Exam Constitutional: + morbidly obese, + frail appearing and cooperative; no acute distress Eyes: EOM intact bilaterally ENMT: Ears: no external ear abnormality Nose: no external nose abnormality Mouth: + dry oral mucous membranes Neck: no nuchal rigidity Respiratory: normal respiratory effort Auscultation: lungs clear to auscultation bilaterally and + diminished lung sounds Cardiovascular: Rate/Rhythm: regular rate and regular rhythm Extremities: + edema (1-2+ BLE but less taut) Gastrointestinal (Abdomen): Inspection/Auscultation: normal bowel sounds Percussion/Palpation: abdomen soft; abdomen nontender Musculoskeletal: Extremities: + abnormal strength (generalized weakness, gracie L side) Skin: no rashes, warm and dry Neurologic: awake Psychiatric: Orientation: alert and oriented x 3 Genitourinary: mccurdy w/ ample urine Results & Data ([facility]) Vital Signs (Past 12 Hours) Vital Signs Temp Pulse Pulse Resp BP Pulse Ox 01/15/21 11:40 36.6 C 72 18 135/71 99 01/15/21 07:07 36.4 C L 84 18 107/65 97 01/15/21 02:38 80 Laboratory Results 01/10/21 06:16 01/15/21 05:54
[2021-01-15] MEDS: ENOXAPARIN INJ 40 MG/0.4 ML SYR SQ SCH (14:14)
[2021-01-15] MEDS: CARBOHYDRATES FOR HYPOGLYCEMIA PO PRN (16:25)
--- NOTE | 2021-01-15 16:57 | Hospitalist Progress Note ---
Date of Service January 15, 2021 Assessment & Plan (1) Sepsis: Patient is a 75 yr female with H/O DM II, chronic diastolic heart failure, aortic stenosis, CKD III, HTN, CVA, PVD, COPD, uterine cancer s/p radiation, gastric bypass, mood disorder, factor V Leiden mutation, colitis, recurrent UTI secondary to obstructive uropathy presented to ER with complaint of nausea and generalized weakness. Septic Shock Resolved -due to complicated UTI resolved , vitals been stable Likely Source: Complicated UTI H/O Left ureteral stent placement by Dr. Castellanos on 12/02/2020. --CT ABD:Interval resolution of the left-sided hydronephrosis. The left ureteral stent is unchanged in position. There remains a punctate mid left ureteral stone adjacent to the ureteral stent. Stable left-sided nephrolithiasis. Stable punctate bladder calculi. Near complete resolution of the colitis with only mild pericolonic fat stranding remaining at the mid sigmoid colon. No evidence for bowel obstruction. Severe body wall edema which has progressed. Cholelithiasis. Trace left pleural effusion has also improved. Persistent bladder wall thickening. -CXR:No acute cardiopulmonary findings. No change in appearance of the chest. -Negative COVID Screen -Urine Culture: Klebsiella, Enterococcus VRE (Enterococcus VRE likely colonization as per ID) - Appreciate ID input d/c Meropenem>> transition to Augmentin : last dose completed 01/13/2021 - -No indication for stent manipulation or exchange as per urology SELWYN on CKD III Likely ATN Baseline Cr:~1. Avoid nephrotoxic agents as able Home diuretics, Bactrim held Monitor renal function, cr level improved 1.6 nephrology following RUQ ABD pain Liver USD:Cholelithiasis. No evidence for acute cholecystitis. Largely obscured pancreas. No biliary ductal dilatation. Abdominal pain resolved Monitor Recent colitis/hematochezia no further GI symptoms CT abdomen pelvis shows near complete resolution of colitis H/O poor bowel prep for colonoscopies in past. Outpatient colonoscopy planned D/w Son Shon-reports of frustration -every time pt was scheduled for outpt colonoscopy , pt could not have the procedure done ( readmitted to hospital few days prior ) son believes lot of the pt's symptoms -weakness, sob could be possibly due to anemia , GI bleed wants to have a discussion with Gi team to consider EGD/colonoscopy while in hospital Elevated troponin In setting of renal failure /evidence of ACS Trend troponin ECHO: Left ventricle wall motion is normal. Factor V Leiden mutation/H/O Recurrent PE/DVT S/P IVC filter placement Off Coumadin secondary to recurrent hematochezia High risk for bleeding complication, poor candidate for long-term anticoag ulation Hypoglycemia: Last Hb A1C: 4.6 in 12/2020-patient is not diabetic multiple episodes of hypoglycemia noted D/c insulin SSI regular diet /BSG improved after liberalization of diet Chronic diastolic heart failure EF 55 to 59%, TTE 2019 monitor I's and O's Diuretics dose adjusted by nephrology, continue to monitor renal function Severe aortic stenosis TAVR contemplated in the future pending cardiac catheterization Cardiology following -appreciate input Patient remains acutely ill with infection/sepsis, renal failure Needs to improve clinically before considering cardiac intervention History of uterine Cancer S/P Radiation DVT Px: Lovenox SQ Code Status DNI disposition : lives at home ( primarily bedbound ) son is the primary care professionals Patient will benefit with skilled rehab on discharge form Hospital appreciate input from Case Management pt prefers [facility] - [facility] is not accepting new admissions until 01/22. had a long discussion with Son /Primary care professionals Shon -pt is requiring 2 person assist for transfer , change of position son believes as she returned home , her breathing will get progressively worsened and pt will be readmitted very soon almost every months ER visit , hospital admission in past 6-8 months pt will benefit with rehab , pt prefers to return home , but may consider [facility] if accepted Admission and Anticipated Discharge Date Admission Date: January 05, 2021 Subjective pt reports of feeling better mccurdy catheter discontinued yesterday , doing well no report for urinary retention no cough , or SOB , no fever or chills feels like her baseline Review of Systems Review of Systems: All systems reviewed & are unremarkable except as noted in Subjective Physical Exam Physical Exam: Physical Exam Constitutional + morbidly obese, + frail appearing and cooperative; no acute distress ENMT Eyes EOM intact bilaterally Ears: no external ear abnormality Nose: no external nose abnormality Neck no nuchal rigidity Respiratory normal respiratory effort Auscultation: lungs clear to auscultation bilaterally and + diminished lung sounds Cardiovascular Rate/Rhythm: regular rate and regular rhythm Extremities: + edema (2-3+ BLE) Gastrointestinal (Abdomen) Inspection/Auscultation: normal bowel sounds Percussion/Palpation: abdomen soft; abdomen nontender Musculoskeletal Extremities: + abnormal strength (generalized weakness, gracie L side) Skin no rashes, warm and dry Neurologic awake , alert, fluent speech, generalized weakness Psychiatric Orientation: alert and oriented x 3 Results & Data Results & Data ([facility]) Vital Signs (Past 12 Hours) Vital Signs Temp Pulse Resp BP Pulse Ox 01/15/21 15:31 36.5 C 87 20 118/69 97 01/15/21 11:40 36.6 C 72 18 135/71 99 01/15/21 07:07 36.4 C L 84 18 107/65 97
[2021-01-15] MEDS: ATORVASTATIN 40 MG TAB PO SCH (19:53)
[2021-01-15] MEDS: DOCUSATE SODIUM/SENNA 50/8.6MG TAB PO SCH (19:53)
[2021-01-15] MEDS: DULoxetine HCL 20 MG CAP PO SCH (19:53)
[2021-01-16 07:04] LABS: BUN Creatinine Ratio 29.8 (10-20); Calcium 8.1 mg/dl (8.5-10.1); Creatinine Clr Calc Pharmacy 42.2 ml/min; Est GFR (African American) 45.5; Est GFR (Non-African American) 39.3; Potassium 3.9 mmol/L (3.5-5.1)
[2021-01-16] MEDS: busPIRone 5 MG TAB PO SCH ×3 (08:24→20:54)
[2021-01-16] MEDS: buPROPion SR 100 MG TABCR PO SCH ×2 (08:24→20:53)
[2021-01-16] MEDS: PANTOprazole 40 MG TAB PO SCH (08:24)
[2021-01-16] MEDS: METOPROLOL SUCC 25MG EXT REL TAB PO SCH ×2 (08:25→20:52)
[2021-01-16] MEDS: ADVANCED PROBIOTIC 1250 MG CAPSULE PO SCH (08:25)
[2021-01-16] MEDS: FUROSEMIDE 10 MG in SYRINGE 0 ML IV SCH ×3 (08:25→20:52)
[2021-01-16] MEDS: POTASSIUM CHLORIDE CRTAB 20 MEQ TABCR PO SCH (08:25)
[2021-01-16] MEDS: POLYETHYLENE (MIRALAX) 17 GM PACK PO SCH (08:25)
[2021-01-16] MEDS: CHOLECALCIFEROL 1,000 UNITS 25 MCG TAB PO SCH (08:25)
[2021-01-16] MEDS: AMOXICILLIN/CLAVULANATE 500 MG TAB PO SCH ×2 (08:25→18:07)
[2021-01-16] MEDS: ENOXAPARIN INJ 40 MG/0.4 ML SYR SQ SCH (14:04)
--- NOTE | 2021-01-16 17:08 | Hospitalist Progress Note ---
Date of Service January 16, 2021 Assessment & Plan (1) Sepsis: Patient is a 75 yr female with H/O DM II, chronic diastolic heart failure, aortic stenosis, CKD III, HTN, CVA, PVD, COPD, uterine cancer s/p radiation, gastric bypass, mood disorder, factor V Leiden mutation, colitis, recurrent UTI secondary to obstructive uropathy presented to ER with complaint of nausea and generalized weakness. Septic Shock Resolved -due to complicated UTI resolved , vitals been stable Likely Source: Complicated UTI H/O Left ureteral stent placement by Dr. Castellanos on 12/02/2020. --CT ABD:Interval resolution of the left-sided hydronephrosis. The left ureteral stent is unchanged in position. There remains a punctate mid left ureteral stone adjacent to the ureteral stent. Stable left-sided nephrolithiasis. Stable punctate bladder calculi. Near complete resolution of the colitis with only mild pericolonic fat stranding remaining at the mid sigmoid colon. No evidence for bowel obstruction. Severe body wall edema which has progressed. Cholelithiasis. Trace left pleural effusion has also improved. Persistent bladder wall thickening. -CXR:No acute cardiopulmonary findings. No change in appearance of the chest. -Negative COVID Screen -Urine Culture: Klebsiella, Enterococcus VRE (Enterococcus VRE likely colonization as per ID) - Appreciate ID input d/c Meropenem>> transition to Augmentin : last dose completed 01/13/2021 - out patient follow up with Urologu - SELWYN on CKD III Likely ATN cr improved to approx baseline Baseline Cr:~1. Avoid nephrotoxic agents as able Monitor renal function, cr level improved 1.6 nephrology following Recent colitis/hematochezia no further GI symptoms CT abdomen pelvis shows near complete resolution of colitis H/O poor bowel prep for colonoscopies in past. Outpatient colonoscopy planned D/w Dino Menendez-reports of frustration -every time pt was scheduled for outpt colonoscopy , pt could not have the procedure done ( readmitted to hospital few days prior ) son believes lot of the pt's symptoms -weakness, sob could be possibly due to anemia , GI bleed wants to have a discussion with Gi team to consider EGD/colonoscopy while in hospital pt's H&H been stable, no blood in stool GI recommends out pt follow up , Elevated troponin In setting of renal failure /evidence of ACS no complain of chest pain or SOB ECHO: Left ventricle wall motion is normal. Factor V Leiden mutation/H/O Recurrent PE/DVT S/P IVC filter placement Off Coumadin secondary to recurrent hematochezia High risk for bleeding complication, poor candidate for long-term anticoagulation Chronic diastolic heart failure EF 55 to 59%, TTE 2019 monitor I's and O's on IV Lasix , vol status has improved Severe aortic stenosis TAVR contemplated in the future pending cardiac catheterization Cardiology following -appreciate input Patient remains acutely ill with infection/sepsis, renal failure Needs to improve clinically before considering cardiac intervention History of uterine Cancer S/P Radiation DVT Px: Lovenox SQ Code Status DNI disposition : lives at home ( primarily bedbound ) son is the primary vehicle care specialist Patient will benefit with skilled rehab on discharge form Hospital appreciate input from Case Management pt prefers [facility] - [facility] is not accepting new admissions until 01/22. had a long discussion with Son /Primary vehicle care specialist Shon -pt is requiring 2 person assist for transfer , change of position son believes as she returned home , her breathing will get progressively worsened and pt will be readmitted very soon almost every months ER visit , hospital admission in past 6-8 months , continue hospital stay for IV Lasix , plan to either discharge home with home health end of this week , or to rehab if accepted Admission and Anticipated Discharge Date Admission Date: January 05, 2021 Subjective complains of feeling weak and tired appetite poor had bowel movement today , no blood in stool no abdominal pain or nausea no complain of SOB , no cough or fever or chills Physical Exam Physical Exam: Physical Exam Constitutional + morbidly obese, + frail appearing and cooperative; no acute distress ENMT Eyes EOM intact bilaterally Ears: no external ear abnormality Nose: no external nose abnormality Neck no nuchal rigidity Respiratory normal respiratory effort Auscultation: lungs clear to auscultation bilaterally and + diminished lung sounds Cardiovascular Rate/Rhythm: regular rate and regular rhythm Extremities: + edema (2-3+ BLE) Gastrointestinal (Abdomen) Inspection/Auscultation: normal bowel sounds Percussion/Palpation: abdomen soft; abdomen nontender Musculoskeletal Extremities: + abnormal strength (generalized weakness, gracie L side) Skin no rashes, warm and dry Neurologic awake , alert, fluent speech, generalized weakness Psychiatric Orientation: alert and oriented x 3 Results & Data Results & Data ([facility]) Vital Signs (Past 12 Hours) Vital Signs Temp Pulse Pulse Resp BP Pulse Ox 01/16/21 15:10 36.5 C 91 H 20 115/81 97 01/16/21 15:00 75 01/16/21 11:17 36.4 C L 106 H 20 119/65 92 01/16/21 07:13 36.3 C L 73 18 126/72 99
--- NOTE | 2021-01-16 17:40 | Nephrology Progress Note ---
Date of Service January 16, 2021 Assessment & Plan (1) SELWYN (acute kidney injury): Now resolved stage 2 oliguric SELWYN from ATN; stable creatinine past few days. Initial oliguria resolved. baseline creatinine 1.1-1.2 but some lability. Her hypotension has not been protracted or severe but may have contributed to SELWYN. remains volume overloaded but chemistries generally ok ; proteinuria assessment is probably meaningless in a patient like this w/ her chronic mccurdy and chronically inflamed urine;some creatinine elevation may reflect bactrim use -Continue on lasix 10 mg IV tid as bp tolerates as look comfortable with this dose, as OP takes 60 mg alt w/ 40 mg daily lasix >>>push protein intake to help improve edema/lower lasix needs >>>appreciate help from RD/nutrition to improve her protein intake specifically -agree w/ standing K dose 20 mEq daily for now WILL SIGN OFF WHEN SHE IS READY FOR DISCHARGE, would resume OP prior to admission lasix dosing along w/ K 10 mEq daily; ensure bmp checked w/in a week of hospital discharge F/u in CKD clinic prn (2) Anasarca: c/b profound hypoalbuminemia -<2 gm daily Na diet -diuretics as above >appreciate RD follow up; trial of protein supplements (3) Recurrent UTI (urinary tract infection): -cont abx as , f/u cultures > urine w/ strep, klebsiella Admission and Anticipated Discharge Date Admission Date: January 05, 2021 Subjective seen on pm rounds at 1500; no sob; feels edema still significant Review of Systems Review of Systems: All systems reviewed & are unremarkable except as noted in Subjective Physical Exam Constitutional: + morbidly obese, + frail appearing and cooperative; no acute distress Eyes: EOM intact bilaterally ENMT: Ears: no external ear abnormality Nose: no external nose abnormality Mouth: + dry oral mucous membranes Neck: no nuchal rigidity Respiratory: normal respiratory effort Auscultation: lungs clear to auscultation bilaterally and + diminished lung sounds Cardiovascular: Rate/Rhythm: regular rate and regular rhythm Extremities: + edema (1-2+ BLE but less taut) Gastrointestinal (Abdomen): Inspection/Auscultation: normal bowel sounds Percussion/Palpation: abdomen soft; abdomen nontender Musculoskeletal: Extremities: + abnormal strength (generalized weakness, gracie L side) Skin: no rashes, warm and dry Neurologic: awake Psychiatric: Orientation: alert and oriented x 3 Genitourinary: mccurdy present Results & Data ([facility]) Vital Signs (Past 12 Hours) Vital Signs Temp Pulse Pulse Resp BP Pulse Ox 01/16/21 15:10 36.5 C 91 H 20 115/81 97 01/16/21 15:00 75 01/16/21 11:17 36.4 C L 106 H 20 119/65 92 01/16/21 07:13 36.3 C L 73 18 126/72 99 Laboratory Results 01/10/21 06:16 01/16/21 06:03
[2021-01-16] MEDS: DOCUSATE SODIUM/SENNA 50/8.6MG TAB PO SCH (20:42)
[2021-01-16] MEDS: DULoxetine HCL 20 MG CAP PO SCH (20:51)
[2021-01-16] MEDS: ATORVASTATIN 40 MG TAB PO SCH (20:52)
[2021-01-16] MEDS: MICONAZOLE NITRATE POWDER 43 GM EXT PRN (21:03)
[2021-01-17] MEDS: POLYETHYLENE (MIRALAX) 17 GM PACK PO SCH (07:07)
[2021-01-17] MEDS: busPIRone 5 MG TAB PO SCH ×3 (09:07→21:05)
[2021-01-17] MEDS: buPROPion SR 100 MG TABCR PO SCH ×2 (09:07→21:03)
[2021-01-17] MEDS: POTASSIUM CHLORIDE CRTAB 20 MEQ TABCR PO SCH (09:08)
[2021-01-17] MEDS: PANTOprazole 40 MG TAB PO SCH (09:08)
[2021-01-17] MEDS: ADVANCED PROBIOTIC 1250 MG CAPSULE PO SCH (09:08)
[2021-01-17] MEDS: CHOLECALCIFEROL 1,000 UNITS 25 MCG TAB PO SCH (09:08)
[2021-01-17] MEDS: AMOXICILLIN/CLAVULANATE 500 MG TAB PO SCH (09:08)
[2021-01-17] MEDS: FUROSEMIDE 10 MG in SYRINGE 0 ML IV SCH ×3 (09:10→21:06)
[2021-01-17] MEDS: METOPROLOL SUCC 25MG EXT REL TAB PO SCH ×2 (09:39→21:03)
[2021-01-17 09:46] LABS: Ferritin 51.9 ng/ml (8-388)
[2021-01-17 10:12] LABS: Folate (Folic Acid) > 20.00 ng/ml (>5.38); Vitamin B12 1583 pg/ml (193-986)
[2021-01-17] MEDS: oxyCODONE HCL IR 5 MG TAB (IMMEDIATE RELEASE) PO PRN ×2 (12:04→17:22)
[2021-01-17] MEDS: traMADol HCL 50 MG TABLET PO PRN (14:25)
[2021-01-17] MEDS: ENOXAPARIN INJ 40 MG/0.4 ML SYR SQ SCH (14:25)
[2021-01-17] MEDS: FERROUS SULFATE 325 MG TAB PO SCH (16:31)
--- NOTE | 2021-01-17 19:14 | Hospitalist Progress Note ---
Date of Service January 17, 2021 Assessment & Plan (1) Sepsis: per Dr. Kirby: Patient is a 75 yr female with H/O DM II, chronic diastolic heart failure, aortic stenosis, CKD III, HTN, CVA, PVD, COPD, uterine cancer s/p radiation, gastric bypass, mood disorder, factor V Leiden mutation, colitis, recurrent UTI secondary to obstructive uropathy presented to ER with complaint of nausea and generalized weakness. Septic Shock Resolved -due to complicated UTI resolved , vitals been stable Likely Source: Complicated UTI H/O Left ureteral stent placement by Dr. Castellanos on 12/02/2020. --CT ABD:Interval resolution of the left-sided hydronephrosis. The left ureteral stent is unchanged in position. There remains a punctate mid left ureteral stone adjacent to the ureteral stent. Stable left-sided nephrolithiasis. Stable punctate bladder calculi. Near complete resolution of the colitis with only mild pericolonic fat stranding remaining at the mid sigmoid colon. No evidence for bowel obstruction. Severe body wall edema which has progressed. Cholelithiasis. Trace left pleural effusion has also improved. Persistent bladder wall thickening. -CXR:No acute cardiopulmonary findings. No change in appearance of the chest. -Negative COVID Screen -Urine Culture: Klebsiella, Enterococcus VRE (Enterococcus VRE likely colonization as per ID) ID consulted: d/c Meropenem>> transition to Augmentin : last dose completed 01/13/2021 - stable afebrile SELWYN on CKD III Likely ATN cr improved to approx baseline Baseline Cr:~1. Avoid nephrotoxic agents as able -- crea improved to 1.3 back to baseline -- on Lasix 10mg IV tid transition to usual PO Lasix on d/c Recent colitis/hematochezia per Dr. Kirby: no further GI symptoms CT abdomen pelvis shows near complete resolution of colitis H/O poor bowel prep for colonoscopies in past. Outpatient colonoscopy planned D/w Son Shon-reports of frustration -every time pt was scheduled for outpt colonoscopy , pt could not have the procedure done ( readmitted to hospital few days prior ) son believes lot of the pt's symptoms -weakness, sob could be possibly due to anemia , GI bleed wants to have a discussion with Gi team to consider EGD/colonoscopy while in hospital pt's H&H been stable, no blood in stool GI recommends out pt follow up -- Hg stable at 8 no signs of melena/hematochezia per patient Elevated troponin In setting of renal failure /evidence of ACS no complain of chest pain or SOB ECHO: Left ventricle wall motion is normal. Factor V Leiden mutation/H/O Recurrent PE/DVT S/P IVC filter placement Off Coumadin secondary to recurrent hematochezia High risk for bleeding complication, poor candidate for long-term anticoagulation Chronic diastolic heart failure EF 55 to 59%, TTE 2019 monitor I's and O's on IV Lasix , vol status has improved Severe aortic stenosis TAVR contemplated in the future pending cardiac catheterization Cardiology following -appreciate input Patient remains acutely ill with infection/sepsis, renal failure Needs to improve clinically before considering cardiac intervention -- euvolemic History of uterine Cancer S/P Radiation DVT Px: Lovenox SQ Code Status DNI disposition : pending Admission and Anticipated Discharge Date Admission Date: January 05, 2021 Subjective ff up s/p sepsis, acute renal failure seen resting in bed, comfortable alert, oriented x 2 states she continues to feel better denies chest pain, dyspnea, palpitations, dizziness, abdominal pain, nausea/vomiting appetite is good BM today, normal no other symptoms Review of Systems Review of Systems: All systems reviewed & are unremarkable except as noted in Subjective Physical Exam Physical Exam: General- oriented x 2, not in distress, speaks in sentences with no effort or accessory muscle use Eyes- anicteric Neck- no JVD Lungs- clear BS bilaterally, no rales/wheezes Heart- normal rate, regular rhythm; no murmurs Abdomen- normal bowel sounds, nondistended, soft, nontender Extremities- no pretibial edema, no calf tenderness Neuro- alert, oriented x 2; no gross focal neurologic deficits Skin- warm & dry Results & Data Results & Data ([facility]) Vital Signs (Past 12 Hours) Vital Signs Temp Pulse Resp BP Pulse Ox 01/17/21 17:02 36.5 C 91 H 18 113/59 L 96 01/17/21 11:59 36.6 C 84 19 110/76 98 all noted and reviewed including below Laboratory Results Laboratory Results - last 24 hr 01/16/21 01/17/21 01/17/21 20:07 07:15 08:41 POC Glucose 120 H 89 Iron TIBC Transferrin Ferritin Vitamin B12 Folate Cancelled 01/17/21 01/17/21 01/17/21 08:41 08:41 11:08 POC Glucose 82 Iron 31 L TIBC 133 L Transferrin 100 L Ferritin 51.9 Vitamin B12 1583 H Folate > 20.00 01/17/21 16:46 POC Glucose 108 H Iron TIBC Transferrin Ferritin Vitamin B12 Folate
[2021-01-17] MEDS: DOCUSATE SODIUM/SENNA 50/8.6MG TAB PO SCH (21:02)
[2021-01-17] MEDS: DULoxetine HCL 20 MG CAP PO SCH (21:05)
[2021-01-17] MEDS: ATORVASTATIN 40 MG TAB PO SCH (21:06)
[2021-01-18] MEDS: CARBOHYDRATES FOR HYPOGLYCEMIA PO PRN (07:32)
[2021-01-18] MEDS: buPROPion SR 100 MG TABCR PO SCH ×2 (09:01→21:10)
[2021-01-18] MEDS: CHOLECALCIFEROL 1,000 UNITS 25 MCG TAB PO SCH (09:01)
[2021-01-18] MEDS: PANTOprazole 40 MG TAB PO SCH (09:01)
[2021-01-18] MEDS: FERROUS SULFATE 325 MG TAB PO SCH ×2 (09:01→16:10)
[2021-01-18] MEDS: busPIRone 5 MG TAB PO SCH ×3 (09:01→21:07)
[2021-01-18] MEDS: METOPROLOL SUCC 25MG EXT REL TAB PO SCH ×2 (09:01→21:08)
[2021-01-18] MEDS: POTASSIUM CHLORIDE CRTAB 20 MEQ TABCR PO SCH (09:02)
[2021-01-18] MEDS: ADVANCED PROBIOTIC 1250 MG CAPSULE PO SCH (09:02)
[2021-01-18] MEDS: POLYETHYLENE (MIRALAX) 17 GM PACK PO SCH (09:03)
[2021-01-18] MEDS: FUROSEMIDE 10 MG in SYRINGE 0 ML IV SCH ×3 (09:05→21:07)
[2021-01-18 09:46] LABS: Basophils # (auto) 0.01 K/uL (0-0.2); Basophils % (auto) 0.1 %; Eosinophils # (auto) 0.04 K/uL (0-0.5); Eosinophils % (auto) 0.5 %; Hematocrit (blood only) 26.4 % (37-47); Hemoglobin 8.3 g/dL (12.0-16.0); Immature Granulocytes # (auto) 0.01 K/uL (0.00-0.02); Immature Granulocytes % (auto) 0.1 %; Lymphocytes % (auto) 7.1 %; Mean Corpuscular Hgb Conc 31.4 g/dL (32-36); Mean Corpuscular Volume 89.2 fL (80-100); Mean Platelet Volume 10.5 fL (7.4-10.4); Monocytes # (auto) 0.32 K/uL (0.11-0.59); Monocytes % (auto) 3.8 %; Neutrophils # (auto) 7.43 K/uL (1.4-6.5); Neutrophils % (auto) 88.4 %; Platelet Count 210 K/uL (130-400); RDW Coefficient of Variation 18.8 % (11.5-14.5); Red Blood Count 2.96 M/uL (4.2-5.4); White Blood Count 8.41 K/uL (4.8-10.8)
[2021-01-18 10:06] LABS: Est GFR (African American) 53.7; Est GFR (Non-African American) 46.3; Potassium 3.6 mmol/L (3.5-5.1)
--- NOTE | 2021-01-18 13:38 | Urology Progress Note ---
Date of Service January 18, 2021 Assessment & Plan (1) Acute UTI: (2) Left ureteral stone: Patient known to service secondary to hydronephrosis; history of kidney stones; history of UTIs - Afebrile, Creatinine improved to 1.16 today, WBC 8.41 - She completed course of PO Augmentin on 01/13 per ID - Case discussed with Dr. Pabon, attending physician - Previous CT A/P showed left ureteral stent in good position, punctate left ureteral stone - Due to left flank and abdominal pain, will order CT A/P without con for further evaluation - Recommend Amphotericin bladder irrigations while inpatient due to history of candiduria - 18F three way Ramírez catheter placed, urine sample obtained, amphotericin bladder irrigation initiated - patient tolerated well - No acute intervention at this time - Continue supportive care - Will determine surgical follow-up pending results and patient status/medically optimized - Will continue to follow Admission and Anticipated Discharge Date Admission Date: January 05, 2021 Supervising Physician Co-Signing Physician Notes Because the patient had a straight cath culture grow estelita glabrata in the pa st and 2 other urine cultures growing yeast not estelita started amphotericin irrigation today. Pt gradually getting better but has been severely debilitated by recurrent episodes of sepsis associated with the left ureteral stones and interval GI bleed and CHF. Because of left flank pain patient had ct today which showed minimal hydronephrosis and punctate left renal stones . She appears to have 2 small stones in the pelvic ureter next to the stent which should pass with a stent removal after it has been indwelling for several months . Because she had 2 ureteroscopies with fragments causing obstruction there is concern of this happening a third time . The trade off between ureteroscopy to remove 1 to 2 mm stone fragments and general anesthesia must be weighed against stent removal under local if the urine can be optimally sterilized. Need to discuss with hospitalists . Pt is tentatively scheduled to go to a rehab center next week. Subjective Patient seen at bedside. Asleep on arrival, appears comfortable, arouses to speech. Generally feeling better, but notes feeling tired and weak. Reports generalized lower abdominal pain and left flank pain. Voiding via external female catheter. Urine appears concentrated yellow. She notes mild dysuria, no hematuria. Tolerating diet, no nausea or vomiting. Bowel movements are regular. No fever or chills. Chart review: Afebrile, creatinine 1.16, WBC 8.41, Hgb 8.3, completed course of PO Augmentin on 01/13 per ID. No additional concerns today. Review of Systems Constitutional: as per Subjective / HPI Gastrointestinal: as per Subjective / HPI Genitourinary: as per Subjective / HPI Physical Exam Constitutional: + morbidly obese; no acute distress Respiratory: normal respiratory effort and able to speak in complete sentences; no respiratory distress and no labored breathing Cardiovascular: bilateral lower extremity edema Gastrointestinal (Abdomen): soft, nondistended, mildly tender to palpation ge neralized in lower abdomen, no rebound or guarding Musculoskeletal: Head/Neck/Chest: normocephalic and head atraumatic Skin: scattered ecchymoses Psychiatric: Orientation: alert and oriented x 3 Genitourinary: no CVA tenderness external female catheter present, urine appears concentrated yellow Results & Data ([facility]) Vital Signs (Past 12 Hours) Vital Signs Temp Pulse Pulse Resp BP Pulse Ox 01/18/21 10:56 36.5 C 62 20 133/84 96 01/18/21 07:10 71 01/18/21 07:06 36.6 C 62 18 107/72 97 01/18/21 03:36 36.6 C 62 18 108/69 97 PG Care Time/CCT Total # of Minutes Spent Total Time Spent with Patient: Total time spent is greater than 50% in coordination of care (as documented) at patient's floor/unit and/or counseling patient: Coding Level of Care Code 82266 Subseq Hosp Care Lvl 2 Diagnoses Acute UTI N39.0 Left ureteral stone N20.1
[2021-01-18] MEDS: ENOXAPARIN INJ 40 MG/0.4 ML SYR SQ SCH (14:13)
[2021-01-18] MEDS: AMPHOTERICIN B 50 MG in WATER, STERILE 1,000 ML IR SCH (14:45)
[2021-01-18 15:03] LABS: Appearance Urine Clear (Clear); Bacteria Urine Automated Negative (Negative); Bilirubin Urine Negative (Negative); Blood Urine 3+ (Negative); Color Urine Yellow; Epithelial Cell Urine Auto >30 /lpf (0-5); Glucose Urine UA Negative (Negative); Ketones Urine Negative (Negative); Leukocyte Esterase Urine 1+ (Negative); Nitrite Urine Negative (Negative); Protein Urine Negative (Negative); Specific Gravity Urine 1.013 (1.000-1.030); Urobilinogen Urine Negative (Negative)
--- NOTE | 2021-01-18 15:24 | CT Scan Report ---
CT SCAN OF THE ABDOMEN AND PELVIS WITHOUT IV CONTRAST CLINICAL HISTORY: Left flank pain. COMPARISON STUDY: Multiple prior abdominal CT scans, most recently dated 01/06/2021. TECHNIQUE: CT scan of the abdomen and pelvis is performed from the lung bases to the proximal femora. Images are reviewed in the axial, sagittal, and coronal planes. IV contrast was not administered for this examination as per the referring clinician. Note that the examination is suboptimal without IV contrast. A dose lowering technique was utilized adhering to the principles of ALARA. The examination is degraded by motion artifact, and by streak artifact from the body wall abutting the CT gantry. CT DOSE: 891.98 mGy.cm FINDINGS: Lung bases: The heart is normal in size noting trace pericardial effusion. The coronary arteries and mitral annulus are densely calcified. There are trace pleural effusions with bibasilar scarring/atele ctasis. Liver: The unenhanced liver is normal in size, contour, and attenuation. There is no intrahepatic jayda iary ductal dilatation. Gallbladder: There are numerous tiny calcified gallstones with no CT evidence of acute cholecystitis. Spleen: Normal in size and attenuation. A small splenic hypodensity is unchanged and of doubtful sign ificance. There is a 9 mm peripherally calcified splenic artery aneurysm seen on image #83. Pancreas: The unenhanced pancreas is atrophic and grossly unremarkable. Adrenal glands: Bilateral adrenal adenomas measure up to 2.2 cm. Kidneys: The unenhanced kidneys are atrophic. 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 A ureteral stent is present within the left lo wer pole ureter. There are least 2 small calculi identified in the left ureter along the course of th e stent near the pelvic inlet seen on images #238 and #244. These measure up to 2 mm. There is only m ild left-sided hydronephrosis, which involves both the upper and lower pole moieties. There are at le ast 3 punctate stone fragments in the lower pole of the left kidney. No right renal calculi are ident ified and there is no right-sided hydronephrosis. Scattered renal cysts and indeterminate cortical hy podensities measure up to 1.6 cm in diameter. Abdominal vasculature: The abdominal aorta is normal in course and caliber noting advanced atheroscle rotic calcification. An IVC filter is in place. Stomach and bowel: There is a moderate hiatal hernia. Postoperative change is noted involving the sto mach. There is also postoperative change from left colonic resection. A small bowel anastomosis is no shaun in the left lower quadrant. There is mild diverticulosis of the remaining colon without CT eviden ce of acute diverticulitis. There is mild to moderate colonic fecal retention. No bowel obstruction i s seen. The appendix is not visualized. There is circumferential rectal wall thickening. Peritoneum: There is no intraperitoneal free air or abdominal ascites. Postoperative change is noted in the ventral abdominal wall. Lymphadenopathy: None. Pelvic viscera: Evaluation of the pelvis is degraded by streak artifact from a right hip arthroplasty . The bladder is decompressed and a Ramírez catheter. The bladder wall is thickened and trabeculated an d there is pericystic inflammation. Bladder diverticula are noted. Small bladder calculi are noted. T he uterus and adnexa are normal as imaged. Skeletal structures: The skeletal structures are osteopenic. There is advanced lumbosacral spondylosi s and mild scoliosis. No lytic or blastic lesions are seen. A right hip arthroplasty is in place. The re are healed left-sided rib fractures. There is advanced chronic deformity of the left hip with dest ruction of the left femoral head, heterotopic bone formation, and surrounding bursal fluid. 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 Soft tissues: There is body wall edema. IMPRESSION: 1. A left ureteral stent is in place within the left lower pole ureter. There is mild persistent left -sided hydroureteronephrosis. 2. There are at least 2 calculi identified in the left ureter along the course of the stent measuring up to 2 mm. 3. Additional punctate stones/fragments are identified in the left kidney. 4. The bladder wall is circumferentially thickened and there is pericystic inflammation. Correlate cl inically and with urinalysis for evidence of cystitis. 5. There are tiny bladder calculi. 6. There is circumferential rectal wall thickening. Clinical correlation will be required. 7. Trace pleural effusions. 8. Cholelithiasis. 9. There is body wall edema. 10. Additional findings as above. ACT 112: Negative or not required by law. Electronically signed by: Srinivasan Finn M.D. 01/18/2021 3:23 PM
[2021-01-18] MEDS: oxyCODONE HCL IR 5 MG TAB (IMMEDIATE RELEASE) PO PRN (17:40)
--- NOTE | 2021-01-18 18:55 | Hospitalist Progress Note ---
Date of Service January 18, 2021 Assessment & Plan (1) Sepsis: per Dr. Kirby: Patient is a 75 yr female with H/O DM II, chronic diastolic heart failure, aortic stenosis, CKD III, HTN, CVA, PVD, COPD, uterine cancer s/p radiation, gastric bypass, mood disorder, factor V Leiden mutation, colitis, recurrent UTI secondary to obstructive uropathy presented to ER with complaint of nausea and generalized weakness. Septic Shock Resolved -due to complicated UTI resolved , vitals been stable Likely Source: Complicated UTI H/O Left ureteral stent placement by Dr. Castellanos on 12/02/2020. --CT ABD:Interval resolution of the left-sided hydronephrosis. The left ureteral stent is unchanged in position. There remains a punctate mid left ureteral stone adjacent to the ureteral stent. Stable left-sided nephrolithiasis. Stable punctate bladder calculi. Near complete resolution of the colitis with only mild pericolonic fat stranding remaining at the mid sigmoid colon. No evidence for bowel obstruction. Severe body wall edema which has progressed. Cholelithiasis. Trace left pleural effusion has also improved. Persistent bladder wall thickening. -CXR:No acute cardiopulmonary findings. No change in appearance of the chest. -Negative COVID Screen -Urine Culture: Klebsiella, Enterococcus VRE (Enterococcus VRE likely colonization as per ID) ID consulted: d/c Meropenem>> transition to Augmentin : last dose completed 01/13/2021 - stable afebrile - discussed with Urologist Dr. Pabon repeat CT abd ordered Amphotericin irrigation started SELWYN on CKD III Likely ATN cr improved to approx baseline Baseline Cr:~1. Avoid nephrotoxic agents as able -- crea improved to 1.1 back to baseline -- on Lasix 10mg IV tid transition to usual PO Lasix on d/c Recent colitis/hematochezia per Dr. Kirby: no further GI symptoms CT abdomen pelvis shows near complete resolution of colitis H/O poor bowel prep for colonoscopies in past. Outpatient colonoscopy planned D/w Son Shon-reports of frustration -every time pt was scheduled for outpt colonoscopy , pt could not have the procedure done ( readmitted to hospital few days prior ) son believes lot of the pt's symptoms -weakness, sob could be possibly due to anemia , GI bleed wants to have a discussion with Gi team to consider EGD/colonoscopy while in hospital pt's H&H been stable, no blood in stool GI recommends out pt follow up -- Hg stable at 8 no signs of melena/hematochezia per patient Elevated troponin In setting of renal failure /evidence of ACS no complain of chest pain or SOB ECHO: Left ventricle wall motion is normal. Factor V Leiden mutation/H/O Recurrent PE/DVT S/P IVC filter placement Off Coumadin secondary to recurrent hematochezia High risk for bleeding complication, poor candidate for long-term anticoagulation Chronic diastolic heart failure EF 55 to 59%, TTE 2019 monitor I's and O's on IV Lasix , vol status has improved Severe aortic stenosis TAVR contemplated in the future pending cardiac catheterization Cardiology following -appreciate input Patient remains acutely ill with infection/sepsis, renal failure Needs to improve clinically before considering cardiac intervention -- euvolemic History of uterine Cancer S/P Radiation DVT Px: Lovenox SQ Code Status DNI disposition : pending Admission and Anticipated Discharge Date Admission Date: January 05, 2021 Subjective ff up for sepsis, UTI seen resting in bed, comfortable states she feels fine except for bladder pain, l sided back pain no chills no chest pain, dyspnea, palpitations, dizziness no other symptoms Review of Systems Review of Systems: All systems reviewed & are unremarkable except as noted in Subjective Physical Exam Physical Exam: General- oriented x 3, not in distress, speaks in sentences with no effort or accessory muscle use Eyes- anicteric Neck- no JVD Lungs- clear BS BL Heart- normal rate, regular rhythm; no murmurs Abdomen- normal bowel sounds, nondistended, soft, mild suprapubic tenderness Extremities- no pretibial edema, no calf tenderness Neuro- alert, oriented x 3; no gross focal neurologic deficits Skin- warm & dry Results & Data Results & Data ([facility]) Vital Signs (Past 12 Hours) Vital Signs Temp Pulse Pulse Resp BP BP Pulse Ox 01/18/21 15:40 36.7 C 62 18 120/78 97 01/18/21 15:31 72 01/18/21 10:56 36.5 C 62 20 133/84 96 01/18/21 07:10 71 01/18/21 07:06 36.6 C 62 18 107/72 97 Laboratory Results Laboratory Results - last 24 hr 01/17/21 01/18/2101/18/21 19:43 07:14 07:16 WBC RBC Hgb Hct MCV MCH MCHC RDW Std Deviation RDW Coeff of Karla Plt Count MPV Immature Gran % (Auto) Neut % (Auto) Lymph % (Auto) Wirt % (Auto) Eos % (Auto) Baso % (Auto) Neut # (Auto) Lymph # (Auto) Wirt # (Auto) Eos # (Auto) Baso # (Auto) Immature Gran # (Auto) Sodium Potassium Chloride Carbon Dioxide Anion Gap BUN Creatinine Est Cr Clr Drug Dosing Est GFR ( Amer) Est GFR (Non-Af Amer) BUN/Creatinine Ratio Glucose POC Glucose 112 H 67 L* 86 Calcium Urine Color Urine Appearance Urine pH Ur Specific Ernest Urine Protein Urine Glucose (UA) Urine Ketones Urine Blood Urine Nitrite Urine Bilirubin Urine Urobilinogen Ur Leukocyte Esterase Urine WBC (Auto) Urine RBC (Auto) U Hyaline Cast (Auto) U Epithel Cells (Auto) Urine Bacteria (Auto) Ur Renal Epithelial Cell Urine Yeast 01/18/21 01/18/21 01/18/21 07:20 07:52 09:27 WBC 8.41 RBC 2.96 L Hgb 8.3 L Hct 26.4 L MCV 89.2 MCH 28.0 MCHC 31.4 L RDW Std Deviation 60.0 H RDW Coeff of Karla 18.8 H Plt Count 210 MPV 10.5 H Immature Gran % (Auto) 0.1 Neut % (Auto) 88.4 Lymph % (Auto) 7.1 Wirt % (Auto) 3.8 Eos % (Auto) 0.5 Baso % (Auto) 0.1 Neut # (Auto) 7.43 H Lymph # (Auto) 0.60 L Wirt # (Auto) 0.32 Eos # (Auto) 0.04 Baso # (Auto) 0.01 Immature Gran # (Auto) 0.01 Sodium Potassium Chloride Carbon Dioxide Anion Gap BUN Creatinine Est Cr Clr Drug Dosing Est GFR ( Amer) Est GFR (Non-Af Amer) BUN/Creatinine Ratio Glucose POC Glucose 69 L* 83 Calcium Urine Color Urine Appearance Urine pH Ur Specific Ernest Urine Protein Urine Glucose (UA) Urine Ketones Urine Blood Urine Nitrite Urine Bilirubin Urine Urobilinogen Ur Leukocyte Esterase Urine WBC (Auto) Urine RBC (Auto) U Hyaline Cast (Auto) U Epithel Cells (Auto) Urine Bacteria (Auto) Ur Renal Epithelial Cell Urine Yeast 01/18/21 01/18/21 01/18/21 09:27 11:14 14:45 WBC RBC Hgb Hct MCV MCH MCHC RDW Std Deviation RDW Coeff of Karla Plt Count MPV Immature Gran % (Auto) Neut % (Auto) Lymph % (Auto) Wirt % (Auto) Eos % (Auto) Baso % (Auto) Neut # (Auto) Lymph # (Auto) Wirt # (Auto) Eos # (Auto) Baso # (Auto) Immature Gran # (Auto) Sodium 141 Potassium 3.6 Chloride 112 H Carbon Dioxide 24 Anion Gap 6.0 BUN 36 H Creatinine 1.16 Est Cr Clr Drug Dosing 49.0 Est GFR ( Amer) 53.7 Est GFR (Non-Af Amer) 46.3 BUN/Creatinine Ratio 31.0 H Glucose 106 H POC Glucose 89 Calcium 8.0 L Urine Color Yellow Urine Appearance Clear Urine pH 5.0 Ur Specific Ernest 1.013 Urine Protein Negative Urine Glucose (UA) Negative Urine Ketones Negative Urine Blood 3+ H Urine Nitrite Negative Urine Bilirubin Negative Urine Urobilinogen Negative Ur Leukocyte Esterase 1+ H Urine WBC (Auto) 10-30 H Urine RBC (Auto) 5-10 H U Hyaline Cast (Auto) 5-10 H U Epithel Cells (Auto) >30 H Urine Bacteria (Auto) Negative Ur Renal Epithelial Cell Not Reportable Urine Yeast Budding A 01/18/21 16:48 WBC RBC Hgb Hct MCV MCH MCHC RDW Std Deviation RDW Coeff of Karla Plt Count MPV Immature Gran % (Auto) Neut % (Auto) Lymph % (Auto) Wirt % (Auto) Eos % (Auto) Baso % (Auto) Neut # (Auto) Lymph # (Auto) Wirt # (Auto) Eos # (Auto) Baso # (Auto) Immature Gran # (Auto) Sodium Potassium Chloride Carbon Dioxide Anion Gap BUN Creatinine Est Cr Clr Drug Dosing Est GFR ( Amer) Est GFR (Non-Af Amer) BUN/Creatinine Ratio Glucose POC Glucose 101 H Calcium Urine Color Urine Appearance Urine pH Ur Specific Ernest Urine Protein Urine Glucose (UA) Urine Ketones Urine Blood Urine Nitrite Urine Bilirubin Urine Urobilinogen Ur Leukocyte Esterase Urine WBC (Auto) Urine RBC (Auto) U Hyaline Cast (Auto) U Epithel Cells (Auto) Urine Bacteria (Auto) Ur Renal Epithelial Cell Urine Yeast
[2021-01-18] MEDS: DULoxetine HCL 20 MG CAP PO SCH (21:07)
[2021-01-18] MEDS: ATORVASTATIN 40 MG TAB PO SCH (21:08)
[2021-01-18] MEDS: DOCUSATE SODIUM/SENNA 50/8.6MG TAB PO SCH (21:08)
--- NOTE | 2021-01-19 08:46 | Urology Progress Note ---
Date of Service January 19, 2021 Assessment & Plan (1) Hydronephrosis, left: (2) Acute UTI: (3) Left ureteral stone: 75 yo F with multiple comorbidities admitted for sepsis, complicated UTI and SELWYN. - Case reviewed with Dr. Pabon, attending physician - Afebrile, nontoxic, no new lab work at time of visit, previous creat 1.16 and WBC 8.41 - CT A/P reviewed - left ureteral stent in place, mild left hydro, at least 2 calculi in the left ureter along the stent ~2 mm. - Continue Amphotericin B bladder irrigations x 5 days - Cath UC&S pending - Continue supportive care - Will determine surgical follow-up with ureteroscopy vs stent removal pending results and patient status/medically optimized - Will continue to follow along closely with primary team Admission and Anticipated Discharge Date Admission Date: January 05, 2021 Supervising Physician Co-Signing Physician Notes Pt feels markedly better after 24 hours of amphoteracin bladder irrigation . Would keep her here through Friday to ensure 5 days of bladder irrigation . Will need to reevaluate next week for timing of either stent removal or repeat ureteroscopy. Spoke with patient and discussed the conundrum as she seems to return with sepsis with stent and appears debilitated . If there was high likelihood that she would rehab and regain strength would delay . Think getting stent out RASHAD is also important as she keeps bouncing back with signs of upper tract infection. She expresses understanding of the conundrum . Subjective Patient awake and resting in bed. No issues overnight. Reports lower abdominal pain and left flank/low back pain. Appetite improved today. No nausea or vomiting. Ramírez catheter intact, patent, and draining clear yellow urine. Amphotericin B bladder irrigation running. Tolerating Ramírez catheter. No fever or chills. Chart review: CT A/P without con IMPRESSION: 1. A left ureteral stent is in place within the left lower pole ureter. There is mild persistent left-sided hydroureteronephrosis. 2. There are at least 2 calculi identified in the left ureter along the course of the stent measuring up to 2 mm. 3. Additional punctate stones/fragments are identified in the left kidney. 4. The bladder wall is circumferentially thickened and there is pericystic inflammation. Correlate clinically and with urinalysis for evidence of cystitis. 5. There are tiny bladder calculi. 6. There is circumferential rectal wall thickening. Clinical correlation will be required. 7. Trace pleural effusions. 8. Cholelithiasis. 9. There is body wall edema. 10. Additional findings as above. Afebrile, no new lab work at time of visit. UC&S pending. No additional concerns today. Review of Systems Constitutional: as per Subjective / HPI Gastrointestinal: as per Subjective / HPI Genitourinary: as per Subjective / HPI Physical Exam Constitutional: + morbidly obese and comfortable; no acute distress Respiratory: normal respiratory effort and able to speak in complete sentences; no respiratory distress and no labored breathing Cardiovascular: b/l lower extremity edema pitting Gastrointestinal (Abdomen): soft, mildly tender to palpation across lower abdomen, no rebound or guarding Musculoskeletal: Head/Neck/Chest: normocephalic and head atraumatic Skin: scattered ecchymoses Neurologic: awake Psychiatric: Orientation: alert and oriented x 3 Genitourinary: Ramírez catheter intact, patent, and draining clear yellow urine. Amphotericin B bladder irrigation running. Results & Data ([facility]) Vital Signs (Past 12 Hours) Vital Signs Temp Pulse Pulse Resp BP Pulse Ox 01/19/21 07:29 71 01/19/21 07:07 36.5 C 77 18 108/57 L 98 01/19/21 04:05 36.6 C 77 18 115/81 97 01/18/21 23:39 36.4 C L 79 18 117/61 93 01/18/21 23:00 87 PG Care Time/CCT Total # of Minutes Spent Total Time Spent with Patient: Total time spent is greater than 50% in coordination of care (as documented) at patient's floor/unit and/or counseling patient: Coding Level of Care Code 70502 Subseq Hosp Care Lvl 2 Diagnoses Hydronephrosis, left N13.30 Acute UTI N39.0 Left ureteral stone N20.1
[2021-01-19] MEDS ORDERED: AMPHOTERICIN B 50 MG in WATER, STERILE 1,000 ML IR SCH (09:00)
[2021-01-19] MEDS: busPIRone 5 MG TAB PO SCH ×3 (09:03→20:02)
[2021-01-19] MEDS: POLYETHYLENE (MIRALAX) 17 GM PACK PO SCH (09:03)
[2021-01-19] MEDS: buPROPion SR 100 MG TABCR PO SCH ×2 (09:04→19:57)
[2021-01-19] MEDS: METOPROLOL SUCC 25MG EXT REL TAB PO SCH ×2 (09:04→20:17)
[2021-01-19] MEDS: FERROUS SULFATE 325 MG TAB PO SCH ×2 (09:05→18:22)
[2021-01-19] MEDS: PANTOprazole 40 MG TAB PO SCH (09:06)
[2021-01-19] MEDS: POTASSIUM CHLORIDE CRTAB 20 MEQ TABCR PO SCH (09:06)
[2021-01-19] MEDS: FUROSEMIDE 10 MG in SYRINGE 0 ML IV SCH ×3 (09:06→21:32)
[2021-01-19] MEDS: ADVANCED PROBIOTIC 1250 MG CAPSULE PO SCH (09:07)
[2021-01-19] MEDS: CHOLECALCIFEROL 1,000 UNITS 25 MCG TAB PO SCH (09:07)
[2021-01-19] MEDS: oxyCODONE HCL IR 5 MG TAB (IMMEDIATE RELEASE) PO PRN ×2 (12:48→19:56)
[2021-01-19] MEDS: PHENAZOPYRIDINE HCL 100 MG TAB PO PRN (12:49)
[2021-01-19] MEDS: AMPHOTERICIN B 50 MG in WATER, STERILE 1,000 ML IR SCH (13:39)
[2021-01-19] MEDS: ENOXAPARIN INJ 40 MG/0.4 ML SYR SQ SCH (13:42)
--- NOTE | 2021-01-19 18:22 | Hospitalist Progress Note ---
Date of Service January 19, 2021 Assessment & Plan (1) Sepsis: per Dr. Kirby: Patient is a 75 yr female with H/O DM II, chronic diastolic heart failure, aortic stenosis, CKD III, HTN, CVA, PVD, COPD, uterine cancer s/p radiation, gastric bypass, mood disorder, factor V Leiden mutation, colitis, recurrent UTI secondary to obstructive uropathy presented to ER with complaint of nausea and generalized weakness. Septic Shock Resolved -due to complicated UTI resolved , vitals been stable Likely Source: Complicated UTI H/O Left ureteral stent placement by Dr. Castellanos on 12/02/2020. --CT ABD:Interval resolution of the left-sided hydronephrosis. The left ureteral stent is unchanged in position. There remains a punctate mid left ureteral stone adjacent to the ureteral stent. Stable left-sided nephrolithiasis. Stable punctate bladder calculi. Near complete resolution of the colitis with only mild pericolonic fat stranding remaining at the mid sigmoid colon. No evidence for bowel obstruction. Severe body wall edema which has progressed. Cholelithiasis. Trace left pleural effusion has also improved. Persistent bladder wall thickening. -CXR:No acute cardiopulmonary findings. No change in appearance of the chest. -Negative COVID Screen -Urine Culture: Klebsiella, Enterococcus VRE (Enterococcus VRE likely colonization as per ID) ID consulted: d/c Meropenem>> transition to Augmentin : last dose completed 01/13/2021 - stable afebrile - discussed with Urologist Dr. Pabon repeat CT abd ordered : noted Amphotericin irrigation started bladder pain improving SELWYN on CKD III Likely ATN cr improved to approx baseline Baseline Cr:~1. Avoid nephrotoxic agents as able -- crea improved to 1.1 back to baseline -- on Lasix 10mg IV tid transition to usual PO Lasix on d/c Recent colitis/hematochezia per Dr. Kirby: no further GI symptoms CT abdomen pelvis shows near complete resolution of colitis H/O poor bowel prep for colonoscopies in past. Outpatient colonoscopy planned D/w Dino Menendez-reports of frustration -every time pt was scheduled for outpt colonoscopy , pt could not have the procedure done ( readmitted to hospital few days prior ) son believes lot of the pt's symptoms -weakness, sob could be possibly due to anemia , GI bleed wants to have a discussion with Gi team to consider EGD/colonoscopy while in hospital pt's H&H been stable, no blood in stool GI recommends out pt follow up -- Hg stable at 8 no signs of melena/hematochezia per patient Elevated troponin In setting of renal failure /evidence of ACS no complain of chest pain or SOB ECHO: Left ventricle wall motion is normal. Factor V Leiden mutation/H/O Recurrent PE/DVT S/P IVC filter placement Off Coumadin secondary to recurrent hematochezia High risk for bleeding complication, poor candidate for long-term anticoagulation Chronic diastolic heart failure EF 55 to 59%, TTE 2019 monitor I's and O's on IV Lasix , vol status has improved Severe aortic stenosis TAVR contemplated in the future pending cardiac catheterization Cardiology following -appreciate input Patient remains acutely ill with infection/sepsis, renal failure Needs to improve clinically before considering cardiac intervention -- euvolemic History of uterine Cancer S/P Radiation DVT Px: Lovenox SQ Code Status DNI disposition : pending Admission and Anticipated Discharge Date Admission Date: January 05, 2021 Subjective ff up for sepsis, UTI seen resting in bed, having dinner states she feels improved today bladder pain improving no fever/chills no chest pain, dyspnea, palpitations, dizziness no other symptoms Review of Systems Review of Systems: All systems reviewed & are unremarkable except as noted in Subjective Physical Exam Physical Exam: General- oriented x 2, not in distress, speaks in sentences with no effort or accessory muscle use Eyes- anicteric Neck- no JVD Lungs- clear breath sounds BL Heart- normal rate, regular rhythm; no murmurs Abdomen- normal bowel sounds, nondistended, soft, nontender Extremities- mild lower leg edema, no calf tenderness Neuro- alert, oriented x 3; no gross focal neurologic deficits Skin- warm & dry Results & Data Results & Data ([facility]) Vital Signs (Past 12 Hours) Vital Signs Temp Pulse Pulse Resp BP Pulse Ox 01/19/21 18:20 36.6 C 69 18 98/54 L 99 01/19/21 15:06 36.3 C L 95 H 20 100/62 100 01/19/21 12:06 36.3 C L 70 20 113/64 01/19/21 07:29 71 01/19/21 07:07 36.5 C 77 18 108/57 L 98 all noted and reviewed including below Laboratory Results Laboratory Results - last 24 hr 01/18/21 01/19/21 01/19/21 20:34 07:23 11:22 POC Glucose 103 H 76 80 01/19/21 16:25 POC Glucose 95
[2021-01-19] MEDS: DOCUSATE SODIUM/SENNA 50/8.6MG TAB PO SCH (20:01)
[2021-01-19] MEDS: DULoxetine HCL 20 MG CAP PO SCH (20:01)
[2021-01-19] MEDS: ATORVASTATIN 40 MG TAB PO SCH (20:02)
[2021-01-20] MEDS: buPROPion SR 100 MG TABCR PO SCH ×2 (07:17→13:16)
[2021-01-20] MEDS: busPIRone 5 MG TAB PO SCH ×3 (07:51→20:13)
[2021-01-20] MEDS: FERROUS SULFATE 325 MG TAB PO SCH ×2 (07:51→16:49)
[2021-01-20] MEDS: POTASSIUM CHLORIDE CRTAB 20 MEQ TABCR PO SCH (07:51)
[2021-01-20] MEDS: FUROSEMIDE 10 MG in SYRINGE 0 ML IV SCH ×3 (07:51→20:13)
[2021-01-20] MEDS: POLYETHYLENE (MIRALAX) 17 GM PACK PO SCH (07:52)
[2021-01-20] MEDS: ADVANCED PROBIOTIC 1250 MG CAPSULE PO SCH (07:52)
[2021-01-20] MEDS: PANTOprazole 40 MG TAB PO SCH (07:52)
[2021-01-20] MEDS: METOPROLOL SUCC 25MG EXT REL TAB PO SCH ×2 (07:52→20:13)
[2021-01-20] MEDS: CHOLECALCIFEROL 1,000 UNITS 25 MCG TAB PO SCH (07:53)
[2021-01-20] MEDS: PHENAZOPYRIDINE HCL 100 MG TAB PO PRN (11:44)
[2021-01-20] MEDS: oxyCODONE HCL IR 5 MG TAB (IMMEDIATE RELEASE) PO PRN (11:44)
--- NOTE | 2021-01-20 12:27 | Urology Consultation ---
Date of Consultation January 20, 2021 Assessment & Plan (1) Left ureteral stone: Doing well on her current antifungal regimen. No changes at this time. Possible stent removal vs. ureteroscopy in the future. Primary urologist will make that decision next week. Stable at this time. Present on Admission?: Yes History of Present Illness Attending Physician: Pablito Evans MD Patient is doing well on her current regimen for the fungus in her urine. She reports lower abdominal pain at times. She has a duplicated left collecting system. She unfortunately has had multiple issues stemming from the stones including sepsis. Doing well today. No pain currently. No CP or SOB. She reports that she feels well today. Allergies Allergy/AdvReac Type Severity Reaction Status Date / Time adhesive Allergy Intermediate BLISTERS Verified 01/05/21 15:18 WITH STERI-STRIPS Iodinated Contrast Media Allergy Intermediate hive Verified 01/05/21 15:18 [Iodinated Contrast- Oral and IV Dye] naproxen Allergy Intermediate SWELLING - Verified 01/05/21 15:18 TOLERATES ESTEVES-[address] HALL ciprofloxacin Allergy Mild RASH Verified 01/05/21 15:18 Quinolones Allergy Mild NEUROLOGIC Verified 01/05/21 15:18 SYMPTOMS Home Medications Medication Instructions Recorded Confirmed Type allopurinol 100 mg PO BID 06/23/19 01/05/21 History buspirone 5 mg PO TID 06/23/19 01/05/21 History cyanocobalamin (vitamin B-12) 1,000 mcg IM .Q3M 06/23/19 01/05/21 History duloxetine [Cymbalta] 40 mg PO HS 06/23/19 01/05/21 History ondansetron 4 mg PO Q8H PRN 06/23/19 01/05/21 History Flintstones Complete 1 tab PO QAM 08/27/19 01/05/21 History atorvastatin 40 mg PO PM 12/31/19 01/05/21 History bupropion HCl [Wellbutrin SR] 200 mg PO BID 12/31/19 01/05/21 History calcium carbonate [Tums Extra 750 mg PO .PRN PRN 12/31/19 01/05/21 History Strength Smoothies] nystatin 1 appln TOP BID PRN 12/31/19 01/05/21 History omeprazole 20 mg PO QAM 12/31/19 01/05/21 History oxybutynin chloride 5 mg PO BID 12/31/19 01/05/21 History Probiotic 3,000 mmu cells PO QAM 06/21/20 01/05/21 History potassium chloride [K-Tab] 10 meq PO BID 06/21/20 01/05/21 History metoprolol succinate 12.5 mg PO BID 09/25/20 01/05/21 History cholecalciferol (vitamin D3) 50 mcg PO DAILY 12/01/20 01/05/21 History docusate sodium 100 mg PO BID 12/01/20 01/05/21 History loperamide 2 mg PO Q4H PRN 12/01/20 01/05/21 History furosemide 60 mg PO .4XW 12/08/20 01/05/21 History furosemide 80 mg PO .3XW 12/08/20 01/05/21 History oxycodone 5 mg PO Q4 PRN 12/08/20 01/05/21 History methenamine hippurate 1 gram tablet 1 g PO BID #60 tab 12/22/20 01/05/21 Rx sulfamethoxazole 800 1 tab PO BID 7 Days #14 tab 01/02/21 01/05/21 Rx mg-trimethoprim 160 mg tablet Patient History Medical History (Updated 01/20/21 @ 12:26 by Mary Mejia MD) Aortic stenosis, severe PAULY 0.62-0.66 cm2 per 08/31/2020 echo. Patient seen by [facility] valve clinic 08/14/20 for possible TAVR, workup initiated with repeat echo, but patient subsequently admitted to [facility] again for urologic issues. 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 Per cardiology consult , "Only mild left ventricular dysfunction and suspect stress mediated etiology rather than acute ischemic event. Patient on appropriate beta-sheryl therapy." Apical wall motion abnormality resolved on 08/04/20 ECHO Atrial fibrillation follows with Michael Bui> NO PACER Bleeding hemorrhoids Carotid artery stenosis [place] , 50%, LICA 50-69% by 04/09/19 doppler Chronic diastolic heart failure CKD (chronic kidney disease), stage III Degenerative disc disease Depression Diarrhea Dyslipidemia Factor 5 Leiden mutation, heterozygous recurrent PE/DVT; status post IVC filter placement, on Coumadin Frequent UTI RECENT HOSPITALIZATION GERD (gastroesophageal reflux disease) [place] filter in place History of COPD "MILD" History of esophageal disorder esophageal diverticulum History of peripheral neuropathy bilateral feet History of stress incontinence Hx of cancer of uterus diagnosed 03/2019---radiation only Hx of gout Hx of iron deficiency anemia Hypertension Intestinal disorder post op malabsorption Left ureteral stone Non-ST elevation IN (NSTEMI) In setting of acute illness (urosepsis 2/2 obstructing stone) 06/21/20 Obesity On anticoagulant therapy warfarin daily NICOLASA on CPAP Pes planus Post traumatic stress disorder Pulmonary embolism hx of bilateral ~12/12 FFL Sleep apnea CPAP Spinal stenosis Stroke 06/03/2019 after I&D left hip--vision loss in left eye--no neurologist Vision abnormalities r peripheral vision loss( posterior ischemic optic neuropathyleft eye), left side altered vision like looking through a screen door Weakness Wheelchair dependence Surgical History H/O cystoscopy 06/23/20 and 07/20/20 [facility] History of arthroplasty of left hip 2006 @ [facility]--infected after, multiple sx's History of biopsy of bladder benign History of colonoscopy with polypectomy History of incision and drainage 05/2019 of left hip History of left hip replacement 03/2019 @ [facility] History of left shoulder replacement History of right hip replacement 2005 @ [facility] History of tonsillectomy and adenoidectomy History of tooth extraction Hx of gastric bypass 2016; [facility] Hx of tubal ligation Hx of umbilical hernia repair mesh inserted S/P colon resection 1984 @ [facility] complete sigmoid removed d/t diverticular disease Family History Mother , age 91 Heart disease Family hx colonic polyps Father , age 42 Factor V deficiency Myocardial infarction Sister No problems noted. Sister Endometrial cancer Brother Family hx colonic polyps Brother , age 50 Meningitis Brother No problems noted. Brother No problems noted. Son No problems noted. Son No problems noted. Son Colon abnormality Son , in his 30 `s , " girl friend over dosed the patients son " Drug overdose Grandfather (Paternal) Family history of diabetes mellitus Family hx of colon cancer Other No family history of adverse response to anesthesia Social History Smoking Status: Former smoker Tobacco Type: Cigarettes Age Started Using Tobacco: 22; packs per day: 0.5; Years Smoked: 25; Cigarettes Per Day: 10; Smoking End Date: 11/02/1999; Second Hand Exposure: No; Do You Dip or Chew Tobacco: No; Hx Alcohol Use: No Hx Substance Use: No Preferred Language: Estonian Communication Ability: Effective Visual Impairment: No Limitations Hearing Ability: Normal Trimming Caser Required: No Beliefs That Will Affect Care: None marital status: / Current Living Situation: Family Current Living Situation Comment: son current occupational status: retired 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 Other Information That Helps Us Care for You: No Feels Safe at Home: Yes Safety Concerns: Feels Safe At This Time Assistive Devices: None Review of Systems Constitutional: as per Subjective / HPI Gastrointestinal: as per Subjective / HPI Genitourinary: as per Subjective / HPI Physical Exam Physical Exam: NAD oriented nonlabored breathing soft NT urine is light yellow with minimal debris [facility] Vital Signs (Past 12 Hours) Vital Signs Temp Pulse Pulse Resp BP Pulse Ox 01/20/21 07:23 76 01/20/21 07:00 36.6 C 76 20 117/74 95 01/20/21 03:00 36.5 C 75 20 125/78 95 PG Care Time/CCT Total # of Minutes Spent Total Time Spent with Patient: Total time spent is greater than 50% in coordination of care (as documented) at patient's floor/unit and/or counseling patient: C[place] [address] Initial Inpt Care Lvl 3 Patient Type Established History Problem Focused Exam Problem Focused Medical Decision Making Low Complexity Diagnoses Left ureteral stone N20.1
[2021-01-20 13:26] LABS: Basophils # (auto) 0.02 K/uL (0-0.2); Basophils % (auto) 0.3 %; Eosinophils # (auto) 0.04 K/uL (0-0.5); Eosinophils % (auto) 0.6 %; Hematocrit (blood only) 24.9 % (37-47); Hemoglobin 7.9 g/dL (12.0-16.0); Immature Granulocytes # (auto) 0.01 K/uL (0.00-0.02); Immature Granulocytes % (auto) 0.1 %; Lymphocytes # (auto) 0.57 K/uL (1.2-3.4); Lymphocytes % (auto) 8.1 %; Mean Corpuscular Hemoglobin 28.2 pg (25-34); Mean Corpuscular Hgb Conc 31.7 g/dL (32-36); Mean Corpuscular Volume 88.9 fL (80-100); Mean Platelet Volume 10.5 fL (7.4-10.4); Monocytes # (auto) 0.24 K/uL (0.11-0.59); Monocytes % (auto) 3.4 %; Neutrophils # (auto) 6.12 K/uL (1.4-6.5); Neutrophils % (auto) 87.5 %; Platelet Count 205 K/uL (130-400); RDW Standard Deviation 61.3 fL (36.4-46.3)
[2021-01-20 13:46] LABS: Anisocytosis Present; Polychromasia 1+; Schistocytes Occasional
[2021-01-20 13:48] LABS: Calcium 7.5 mg/dl (8.5-10.1); Creatinine Clr Calc Pharmacy 52.7 ml/min; Est GFR (African American) 57.9; Potassium 3.6 mmol/L (3.5-5.1)
[2021-01-20] MEDS: ENOXAPARIN INJ 40 MG/0.4 ML SYR SQ SCH (14:03)
[2021-01-20] MEDS: AMPHOTERICIN B 50 MG in WATER, STERILE 1,000 ML IR SCH (14:40)
[2021-01-20] MEDS: DULoxetine HCL 20 MG CAP PO SCH (20:13)
[2021-01-20] MEDS: ATORVASTATIN 40 MG TAB PO SCH (20:13)
[2021-01-20] MEDS: DOCUSATE SODIUM/SENNA 50/8.6MG TAB PO SCH (20:13)
--- NOTE | 2021-01-20 20:20 | Hospitalist Progress Note ---
Date of Service January 20, 2021 Assessment & Plan (1) Sepsis: per Dr. Kirby: Patient is a 75 yr female with H/O DM II, chronic diastolic heart failure, aortic stenosis, CKD III, HTN, CVA, PVD, COPD, uterine cancer s/p radiation, gastric bypass, mood disorder, factor V Leiden mutation, colitis, recurrent UTI secondary to obstructive uropathy presented to ER with complaint of nausea and generalized weakness. Septic Shock Resolved -due to complicated UTI resolved , vitals been stable Likely Source: Complicated UTI H/O Left ureteral stent placement by Dr. Castellanos on 12/02/2020. --CT ABD:Interval resolution of the left-sided hydronephrosis. The left ureteral stent is unchanged in position. There remains a punctate mid left ureteral stone adjacent to the ureteral stent. Stable left-sided nephrolithiasis. Stable punctate bladder calculi. Near complete resolution of the colitis with only mild pericolonic fat stranding remaining at the mid sigmoid colon. No evidence for bowel obstruction. Severe body wall edema which has progressed. Cholelithiasis. Trace left pleural effusion has also improved. Persistent bladder wall thickening. -CXR:No acute cardiopulmonary findings. No change in appearance of the chest. -Negative COVID Screen -Urine Culture: Klebsiella, Enterococcus VRE (Enterococcus VRE likely colonization as per ID) ID consulted: d/c Meropenem>> transition to Augmentin : last dose completed 01/13/2021 - stable afebrile - discussed with Urologist Dr. Pabon repeat CT abd ordered : noted Amphotericin irrigation in progress bladder pain improving urine culture: negative SELWYN on CKD III Likely ATN cr improved to approx baseline Baseline Cr:~1. Avoid nephrotoxic agents as able -- crea improved to 1.09 back to baseline -- on Lasix 10mg IV tid transition to usual PO Lasix on d/c Recent colitis/hematochezia per Dr. Kirby: no further GI symptoms CT abdomen pelvis shows near complete resolution of colitis H/O poor bowel prep for colonoscopies in past. Outpatient colonoscopy planned D/w Son Shon-reports of frustration -every time pt was scheduled for outpt colonoscopy , pt could not have the procedure done ( readmitted to hospital few days prior ) son believes lot of the pt's symptoms -weakness, sob could be possibly due to anemia , GI bleed wants to have a discussion with Gi team to consider EGD/colonoscopy while in hospital pt's H&H been stable, no blood in stool GI recommends out pt follow up -- Hg stable at 8 no signs of melena/hematochezia per patient -- noted to have streak of blood when being cleaned today patient reports some discomfort with BM (+) external hemorrhoid noted start Anusol supp BID Elevated troponin In setting of renal failure /evidence of ACS no complain of chest pain or SOB ECHO: Left ventricle wall motion is normal. Factor V Leiden mutation/H/O Recurrent PE/DVT S/P IVC filter placement Off Coumadin secondary to recurrent hematochezia High risk for bleeding complication, poor candidate for long-term anticoagulation on Lovenox SC Chronic diastolic heart failure EF 55 to 59%, TTE 2019 monitor I's and O's on IV Lasix , vol status has improved Severe aortic stenosis TAVR contemplated in the future pending cardiac catheterization Cardiology following -appreciate input Patient remains acutely ill with infection/sepsis, renal failure Needs to improve clinically before considering cardiac intervention -- euvolemic History of uterine Cancer S/P Radiation DVT Px: Lovenox SQ Code Status DNI disposition : pending Admission and Anticipated Discharge Date Admission Date: January 05, 2021 Subjective ff up for uti, etc seen resting in bed, comfortable states she feels better today minimal bladder discomfort no chest pain, dyspnea, nausea, palpitations, dizziness appetite is good no other symptoms Review of Systems Review of Systems: All systems reviewed & are unremarkable except as noted in Subjective Physical Exam Physical Exam: General- oriented x 3, not in distress, speaks in sentences with no effort or accessory muscle use Eyes- anicteric Neck- no JVD Lungs- clear breath sounds BL Heart- normal rate, regular rhythm; no murmurs Abdomen- normal bowel sounds, nondistended, soft, nontender Extremities- mild pretibial edema, no calf tenderness LLE wound: healing well small area of echymmoses left hip- no tenderness small area of ecchymoses on the right LLE lateral aspect- no tenderness Neuro- alert, oriented x 3; no gross focal neurologic deficits Skin- warm & dry Results & Data Results & Data ([facility]) Vital Signs (Past 12 Hours) Vital Signs Temp Pulse Pulse Resp BP Pulse Ox 01/20/21 20:12 76 132/70 01/20/21 19:01 36.4 C L 79 20 104/68 94 01/20/21 15:00 71 01/20/21 14:47 36.0 C L 73 18 103/50 L 93 01/20/21 12:31 35.6 C L 76 18 101/65 99 Laboratory Results Laboratory Results - last 24 hr 01/19/21 01/20/21 01/20/21 20:23 07:22 11:17 WBC RBC Hgb Hct MCV MCH MCHC RDW Std Deviation RDW Coeff of Karla Plt Count MPV Immature Gran % (Auto) Neut % (Auto) Lymph % (Auto) [place]verse % (Auto) Eos % (Auto) Baso % (Auto) Neut # (Auto) Lymph # (Auto) [place]verse # (Auto) Eos # (Auto) Baso # (Auto) Immature Gran # (Auto) Polychromasia Anisocytosis Schistocytes Sodium Potassium Chloride Carbon Dioxide Anion Gap BUN Creatinine Est Cr Clr Drug Dosing Est GFR ( Amer) Est GFR (Non-Af Amer) BUN/Creatinine Ratio Glucose POC Glucose 113 H 73 149 H Calcium 01/20/21 01/20/21 01/20/21 13:04 13:04 16:13 WBC 7.00 RBC 2.80 L Hgb 7.9 L Hct 24.9 L MCV 88.9 MCH 28.2 MCHC 31.7 L RDW Std Deviation 61.3 H RDW Coeff of Karla 19.0 H Plt Count 205 MPV 10.5 H Immature Gran % (Auto) 0.1 Neut % (Auto) 87.5 Lymph % (Auto) 8.1 Converse % (Auto) 3.4 Eos % (Auto) 0.6 Baso % (Auto) 0.3 Neut # (Auto) 6.12 Lymph # (Auto) 0.57 L [place] # (Auto) 0.24 Eos # (Auto) 0.04 Baso # (Auto) 0.02 Immature Gran # (Auto) 0.01 Polychromasia 1+ Anisocytosis Present Schistocytes Occasional Sodium 141 Potassium 3.6 Chloride 112 H Carbon Dioxide 23 Anion Gap 6.0 BUN 36 H Creatinine 1.09 Est Cr Clr Drug Dosing 52.7 Est GFR ( Amer) 57.9 Est GFR (Non-Af Amer) 50.0 BUN/Creatinine Ratio 33.0 H Glucose 134 H POC Glucose 74 Calcium 7.5 L 01/20/21 20:05 WBC RBC Hgb Hct MCV MCH MCHC RDW Std Deviation RDW Coeff of Karla Plt Count MPV Immature Gran % (Auto) Neut % (Auto) Lymph % (Auto) Converse % (Auto) Eos % (Auto) Baso % (Auto) Neut # (Auto) Lymph # (Auto) Converse # (Auto) Eos # (Auto) Baso # (Auto) Immature Gran # (Auto) Polychromasia Anisocytosis Schistocytes Sodium Potassium Chloride Carbon Dioxide Anion Gap BUN Creatinine Est Cr Clr Drug Dosing Est GFR ( Amer) Est GFR (Non-Af Amer) BUN/Creatinine Ratio Glucose POC Glucose 144 H Calcium
[2021-01-20] MEDS: ANUSOL SUPP 1 EA PR SCH (21:19)
[2021-01-21] MEDS: buPROPion SR 100 MG TABCR PO SCH ×2 (06:32→13:07)
[2021-01-21] MEDS: traMADol HCL 50 MG TABLET PO PRN (06:36)
[2021-01-21] MEDS: FERROUS SULFATE 325 MG TAB PO SCH ×2 (07:57→17:31)
[2021-01-21] MEDS: ANUSOL SUPP 1 EA PR SCH ×2 (07:58→20:13)
[2021-01-21] MEDS: busPIRone 5 MG TAB PO SCH ×3 (07:58→20:14)
[2021-01-21] MEDS: POTASSIUM CHLORIDE CRTAB 20 MEQ TABCR PO SCH (07:58)
[2021-01-21] MEDS: POLYETHYLENE (MIRALAX) 17 GM PACK PO SCH (07:58)
[2021-01-21] MEDS: FUROSEMIDE 10 MG in SYRINGE 0 ML IV SCH (07:58)
[2021-01-21] MEDS: ADVANCED PROBIOTIC 1250 MG CAPSULE PO SCH (07:59)
[2021-01-21] MEDS: PANTOprazole 40 MG TAB PO SCH (07:59)
[2021-01-21] MEDS: METOPROLOL SUCC 25MG EXT REL TAB PO SCH ×2 (07:59→20:14)
[2021-01-21] MEDS: CHOLECALCIFEROL 1,000 UNITS 25 MCG TAB PO SCH (08:00)
--- NOTE | 2021-01-21 10:26 | Urology Progress Note ---
Date of Service January 21, 2021 Assessment & Plan (1) Left ureteral stone: Doing well on her current antifungal regimen. No changes at this time. Possible stent removal vs. ureteroscopy in the future. Primary urologist will make that decision next week. Stable at this time. Admission and Anticipated Discharge Date Admission Date: January 05, 2021 Subjective Patient is doing well today. No issues overnight. She is tolerating a diet. No abdominal pain today. She reports feeling much better today. Occasional bladder discomfort but only lasts a few seconds Review of Systems Constitutional: as per Subjective / HPI Gastrointestinal: as per Subjective / HPI Genitourinary: as per Subjective / HPI Physical Exam Physical Exam: NAD oriented nonlabored breathing soft NT urine is light yellow -- no debris today Results & Data ([facility]) Vital Signs (Past 12 Hours) Vital Signs Temp Pulse Pulse Resp BP Pulse Ox 01/21/21 07:15 77 01/21/21 03:10 36.5 C 71 20 112/69 98 01/21/21 01:31 85 01/20/21 23:00 36.7 C 80 20 97/65 L 96 PG Care Time/CCT Total # of Minutes Spent Total Time Spent with Patient: Total time spent is greater than 50% in coordination of care (as documented) at patient's floor/unit and/or counseling patient: Coding Level of Care Code 76483 Subseq Hosp Care Lvl 2 Diagnoses Left ureteral stone N20.1
[2021-01-21] MEDS: FUROSEMIDE 20 MG TAB PO SCH ×2 (11:57→17:18)
[2021-01-21] MEDS: AMPHOTERICIN B 50 MG in WATER, STERILE 1,000 ML IR SCH (13:06)
[2021-01-21] MEDS: oxyCODONE HCL IR 5 MG TAB (IMMEDIATE RELEASE) PO PRN (13:06)
[2021-01-21] MEDS: ENOXAPARIN INJ 40 MG/0.4 ML SYR SQ SCH (13:07)
--- NOTE | 2021-01-21 16:07 | Hospitalist Progress Note ---
Date of Service January 21, 2021 Assessment & Plan (1) Sepsis: (2) Cystitis: (3) SELWYN (acute kidney injury): (1) Sepsis: per Dr. Kirby: 75 yr female with H/O DM II, chronic diastolic heart failure, aortic stenosis, CKD III, HTN, CVA, PVD, COPD, uterine cancer s/p radiation, gastric bypass, mood disorder, factor V Leiden mutation, colitis, recurrent UTI secondary to obstructive uropathy presented to ER with complaint of nausea and generalized weakness. Septic Shock Resolved due to complicated UTI resolved , vitals been stable Likely Source: Complicated UTI H/O Left ureteral stent placement by Dr. Castellanos - 12/02/2020 -- CT Abdomen: Interval resolution of the left-sided hydronephrosis. The left ureteral stent is unchanged in position. There remains a punctate mid left ureteral stone adjacent to the ureteral stent. Stable left-sided nephrolithiasis. Stable punctate bladder calculi. Near complete resolution of the colitis with only mild pericolonic fat stranding remaining at the mid sigmoid colon. No evidence for bowel obstruction. Severe body wall edema which has progressed. Cholelithiasis. Trace left pleural effusion has also improved. Persistent bladder wall thickening. -- CXR: No acute cardiopulmonary findings. No change in appearance of the chest. -- Negative COVID Screen -- Urine Culture: Klebsiella, Enterococcus VRE (Enterococcus VRE likely colonization as per ID) ID consulted: d/c Meropenem>> transition to Augmentin : last dose completed 01/13/2021 -- stable afebrile -- discussed with Urologist Dr. Pabon repeat CT abdomen ordered: noted Amphotericin irrigation in progress Bladder pain improving Urine culture: negative Acute Kidney Injury on CKD III Likely ATN -- cr improved to approx baseline Baseline Cr ~1 Avoid nephrotoxic agents as able -- crea improved to 1.09 back to baseline -- on Lasix 10mg IV tid transition to Lasix 40mg in AM, 20mg PM Recent colitis/hematochezia per Dr. Kirby: no further GI symptoms CT abdomen pelvis shows near complete resolution of colitis H/O poor bowel prep for colonoscopies in past. Outpatient colonoscopy planned D/w Son Shon-reports of frustration -every time pt was scheduled for outpt colonoscopy , pt could not have the procedure done ( readmitted to hospital few days prior ) son believes lot of the pt's symptoms -weakness, sob could be possibly due to anemia , GI bleed wants to have a discussion with Gi team to consider EGD/colonoscopy while in hospital pt's H&H been stable, no blood in stool GI recommends out pt follow up -- Hg stable at 8 no signs of melena/hematochezia per patient -- noted to have streak of blood when being cleaned today patient reports some discomfort with BM (+) external hemorrhoid noted Anusol supp BID Elevated troponin In setting of renal failure /evidence of ACS no complain of chest pain or SOB ECHO: Left ventricle wall motion is normal. Factor V Leiden mutation/H/O Recurrent PE/DVT S/P IVC filter placement Off Coumadin secondary to recurrent hematochezia High risk for bleeding complication, poor candidate for long-term anticoagulation on Lovenox SC Chronic diastolic heart failure EF 55 to 59%, TTE 2019 monitor I's and O's on IV Lasix , vol status has improved Severe aortic stenosis TAVR contemplated in the future pending cardiac catheterization Cardiology following -appreciate input Patient remains acutely ill with infection/sepsis, renal failure Needs to improve clinically before considering cardiac intervention -- euvolemic History of uterine Cancer S/P Radiation DVT Px: Lovenox SQ Code Status DNI disposition : pending Admission and Anticipated Discharge Date Admission Date: January 05, 2021 Subjective ff up for uti, etc seen resting in bed, comfortable in good spirits states she feels fine today no chest pain, dyspnea, nausea bladder discomfort minimal, intermittent no other symptoms Review of Systems Review of Systems: All systems reviewed & are unremarkable except as noted in Subjective Physical Exam Physical Exam: General- oriented x 2, not in distress, speaks in sentences with no effort or accessory muscle use Eyes- anicteric Neck- no JVD Lungs- clear BS BL Heart- normal rate, regular rhythm; no murmurs Abdomen- normal bowel sounds, nondistended, soft, nontender Extremities- mild pretibial edema, no calf tenderness Neuro- alert, oriented x 2; no gross focal neurologic deficits Skin- warm & dry Results & Data Results & Data ([facility]) Vital Signs (Past 12 Hours) Vital Signs Temp Pulse Pulse Resp BP Pulse Ox 01/21/21 15:36 36.5 C 73 16 106/63 98 01/21/21 15:00 81 01/21/21 11:25 36.5 C 73 20 119/74 99 01/21/21 07:30 36.6 C 78 18 114/65 98 01/21/21 07:15 77 all noted and reviewed including below Laboratory Results Laboratory Results - last 24 hr 01/20/21 01/20/21 01/21/21 16:13 20:05 07:31 POC Glucose 74 144 H 76 01/21/21 11:52 POC Glucose 122 H (1) Sepsis Sepsis acute organ dysfunction status: with acute organ dysfunction Sepsis type: sepsis due to unspecified organism Severe sepsis acute organ dysfunction type: unspecified Severe sepsis shock status: unspecified Qualified Code(s): A41.9 - Sepsis, unspecified organism; R65.20 - Severe sepsis without septic shock
[2021-01-21] MEDS: DULoxetine HCL 20 MG CAP PO SCH (20:14)
[2021-01-21] MEDS: ATORVASTATIN 40 MG TAB PO SCH (20:14)
[2021-01-21] MEDS: DOCUSATE SODIUM/SENNA 50/8.6MG TAB PO SCH (20:15)
[2021-01-22] MEDS: buPROPion SR 100 MG TABCR PO SCH ×2 (06:38→12:55)
[2021-01-22] MEDS: busPIRone 5 MG TAB PO SCH ×3 (09:12→21:21)
[2021-01-22] MEDS: ADVANCED PROBIOTIC 1250 MG CAPSULE PO SCH (09:12)
[2021-01-22] MEDS: FUROSEMIDE 20 MG TAB PO SCH ×2 (09:12→17:05)
[2021-01-22] MEDS: PANTOprazole 40 MG TAB PO SCH (09:13)
[2021-01-22] MEDS: CHOLECALCIFEROL 1,000 UNITS 25 MCG TAB PO SCH (09:13)
[2021-01-22] MEDS: METOPROLOL SUCC 25MG EXT REL TAB PO SCH ×2 (09:13→21:21)
[2021-01-22] MEDS: POTASSIUM CHLORIDE CRTAB 20 MEQ TABCR PO SCH (09:16)
[2021-01-22] MEDS: ANUSOL SUPP 1 EA PR SCH ×2 (09:19→21:19)
[2021-01-22] MEDS: FERROUS SULFATE 325 MG TAB PO SCH ×2 (09:19→17:06)
[2021-01-22] MEDS: POLYETHYLENE (MIRALAX) 17 GM PACK PO SCH (09:19)
[2021-01-22 09:58] LABS: Basophils # (auto) 0.02 K/uL (0-0.2); Basophils % (auto) 0.4 %; Eosinophils # (auto) 0.08 K/uL (0-0.5); Eosinophils % (auto) 1.4 %; Hematocrit (blood only) 26.8 % (37-47); Hemoglobin 8.5 g/dL (12.0-16.0); Immature Granulocytes # (auto) 0.01 K/uL (0.00-0.02); Immature Granulocytes % (auto) 0.2 %; Lymphocytes # (auto) 0.63 K/uL (1.2-3.4); Lymphocytes % (auto) 11.4 %; Mean Corpuscular Hemoglobin 28.1 pg (25-34); Mean Corpuscular Hgb Conc 31.7 g/dL (32-36); Mean Corpuscular Volume 88.7 fL (80-100); Mean Platelet Volume 10.4 fL (7.4-10.4); Monocytes # (auto) 0.25 K/uL (0.11-0.59); Monocytes % (auto) 4.5 %; Neutrophils # (auto) 4.55 K/uL (1.4-6.5); Neutrophils % (auto) 82.1 %; Platelet Count 238 K/uL (130-400); RDW Coefficient of Variation 19.1 % (11.5-14.5); RDW Standard Deviation 61.2 fL (36.4-46.3); Red Blood Count 3.02 M/uL (4.2-5.4); White Blood Count 5.54 K/uL (4.8-10.8)
[2021-01-22 10:33] LABS: Calcium 7.6 mg/dl (8.5-10.1); Creatinine Clr Calc Pharmacy 52.1 ml/min; Est GFR (African American) 57.3; Est GFR (Non-African American) 49.4; Potassium 3.2 mmol/L (3.5-5.1)
--- NOTE | 2021-01-22 11:28 | Urology Progress Note ---
Date of Service January 22, 2021 Assessment & Plan (1) Left ureteral stone: - Doing well on her current antifungal regimen. - Continue Amphotericin B bladder irrigation until completed, last dose is scheduled to start later today. - She is pending discharge to [facility] later today. - Recommend maintain 3-way Ramírez catheter upon discharge, complete irrigation as above. - She can have a voiding trial at [facility] after completion of treatment. - Possible stent removal vs. ureteroscopy in the future. - Will arrange follow-up with our service outpatient to discuss definitive management. Thank you for allowing us to participate in the acute care of Ms. Liang. Please reconsult us with additional questions, concerns or changes in patient status. Admission and Anticipated Discharge Date Admission Date: January 05, 2021 Subjective Patient resting in bed, arouses easily to speech. No issues overnight. Overall feeling better. Occasional bladder pain, left flank pain. No nausea or vomiting. No fever or chills. Tolerating Ramírez catheter. Ramírez intact, patent and draining clear yellow urine. Amphotericin B bladder irrigation in place. No dysuria or hematuria. No additional concerns. Chart review: Afebrile, creatinine 1.10, WBC 5.54, Hgb 8.5. VS - CP 121/77, HR 78, Resp 20, Temp 36.6, O2 sat 97% RA. Review of Systems Constitutional: as per Subjective / HPI Gastrointestinal: as per Subjective / HPI Genitourinary: as per Subjective / HPI Physical Exam Constitutional: + morbidly obese and comfortable; no acute distress Respiratory: able to speak in complete sentences; no respiratory distress and no labored breathing Cardiovascular: b/l lower extremity pitting edema Gastrointestinal (Abdomen): Inspection/Auscultation: abdomen normal to inspection; abdomen not distended Percussion/Palpation: abdomen soft; abdomen nontender and no guarding Musculoskeletal: Head/Neck/Chest: normocephalic and head atraumatic Skin: scattered ecchymoses Neurologic: awake Psychiatric: Orientation: alert and oriented x 3 Genitourinary: no CVA tenderness Ramírez intact, patent, draining clear yellow urine. Amphotericin B bladder irrigation intact. Results & Data ([facility]) Vital Signs (Past 12 Hours) Vital Signs Temp Pulse Pulse Resp BP Pulse Ox 01/22/21 07:18 78 01/22/21 07:00 36.6 C 74 20 121/77 97 03/15/21 03:10 36.5 C 84 20 112/61 97 01/22/21 00:46 83 PG Care Time/CCT Total # of Minutes Spent Total Time Spent with Patient: Total time spent is greater than 50% in coordination of care (as documented) at patient's floor/unit and/or counseling patient: Coding Level of Care Code 22926 Subseq Hosp Care Lvl 2 Diagnoses Left ureteral stone N20.1
[2021-01-22] MEDS: ENOXAPARIN INJ 40 MG/0.4 ML SYR SQ SCH (12:56)
[2021-01-22] MEDS: oxyCODONE HCL IR 5 MG TAB (IMMEDIATE RELEASE) PO PRN (13:17)
[2021-01-22] MEDS: AMPHOTERICIN B 50 MG in WATER, STERILE 1,000 ML IR SCH (13:19)
[2021-01-22] MEDS: traMADol HCL 50 MG TABLET PO PRN (13:58)
[2021-01-22] MEDS: ACETAMINOPHEN 325 MG TAB PO PRN ×2 (17:35→23:50)
[2021-01-22] MEDS ORDERED: POTASSIUM CHLORIDE CRTAB 20 MEQ TABCR PO STA (18:23)
--- NOTE | 2021-01-22 18:25 | Hospitalist Progress Note ---
Date of Service January 22, 2021 Assessment & Plan (1) Sepsis: (2) Cystitis: (3) SELWYN (acute kidney injury): (1) Sepsis: per Dr. Kirby: 75 yr female with H/O DM II, chronic diastolic heart failure, aortic stenosis, CKD III, HTN, CVA, PVD, COPD, uterine cancer s/p radiation, gastric bypass, mood disorder, factor V Leiden mutation, colitis, recurrent UTI secondary to obstructive uropathy presented to ER with complaint of nausea and generalized weakness. Septic Shock Resolved due to complicated UTI resolved , vitals been stable Likely Source: Complicated UTI H/O Left ureteral stent placement by Dr. Castellanos - 12/02/2020 -- CT Abdomen: Interval resolution of the left-sided hydronephrosis. The left ureteral stent is unchanged in position. There remains a punctate mid left ureteral stone adjacent to the ureteral stent. Stable left-sided nephrolithiasis. Stable punctate bladder calculi. Near complete resolution of the colitis with only mild pericolonic fat stranding remaining at the mid sigmoid colon. No evidence for bowel obstruction. Severe body wall edema which has progressed. Cholelithiasis. Trace left pleural effusion has also improved. Persistent bladder wall thickening. -- CXR: No acute cardiopulmonary findings. No change in appearance of the chest. -- Negative COVID Screen -- Urine Culture: Klebsiella, Enterococcus VRE (Enterococcus VRE likely colonization as per ID) ID consulted: d/c Meropenem>> transition to Augmentin : last dose completed 01/13/2021 -- stable afebrile -- discussed with Urologist Dr. Pabon repeat CT abdomen ordered: noted Amphotericin Day 5/5 in progress Bladder pain improving Urine culture: negative Acute Kidney Injury on CKD III Likely ATN -- cr improved to approx baseline Baseline Cr ~1 Avoid nephrotoxic agents as able -- crea improved to 1.09 back to baseline -- on Lasix 10mg IV tid transitioned to Lasix 40mg in AM, 20mg PM edema improving monitor volume status, renal function closely Recent colitis/hematochezia per Dr. Kirby: no further GI symptoms CT abdomen pelvis shows near complete resolution of colitis H/O poor bowel prep for colonoscopies in past. Outpatient colonoscopy planned D/w Son Shon-reports of frustration -every time pt was scheduled for outpt colonoscopy , pt could not have the procedure done ( readmitted to hospital few days prior ) son believes lot of the pt's symptoms -weakness, sob could be possibly due to anemia , GI bleed wants to have a discussion with Gi team to consider EGD/colonoscopy while in hospital pt's H&H been stable, no blood in stool GI recommends out pt follow up -- Hg stable at 8 no signs of melena/hematochezia per patient -- 01/21 noted to have streak of blood per rectum when being cleaned patient reports some discomfort with BM (+) external hemorrhoid noted Anusol supp BID no recurrence Elevated troponin In setting of renal failure /evidence of ACS no complain of chest pain or SOB ECHO: Left ventricle wall motion is normal. Factor V Leiden mutation/H/O Recurrent PE/DVT S/P IVC filter placement Off Coumadin secondary to recurrent hematochezia High risk for bleeding complication, poor candidate for long-term anticoagulation on Lovenox SC Chronic diastolic heart failure EF 55 to 59%, TTE 2019 monitor I's and O's given IV Lasix , vol status has improved Severe aortic stenosis TAVR contemplated in the future pending cardiac catheterization Cardiology following -appreciate input Patient remains acutely ill with infection/sepsis, renal failure Needs to improve clinically before considering cardiac intervention -- euvolemic History of uterine Cancer S/P Radiation DVT Px: Lovenox SQ Code Status DNI disposition : [facility] tomorrow Admission and Anticipated Discharge Date Admission Date: January 05, 2021 Subjective ff up for uti, etc seen resting in bed, comfortable states she feels fine overall minimal bladder pain no nausea, chills no chest pain, dyspnea, palpitations appetite is good no other symptoms Review of Systems Review of Systems: All systems reviewed & are unremarkable except as noted in Subjective Physical Exam Physical Exam: General- oriented x 3, not in distress, speaks in sentences with no effort or accessory muscle use Eyes- anicteric Neck- no JVD Lungs- clear BS BL Heart- normal rate, regular rhythm; no murmurs Abdomen- normal bowel sounds, nondistended, soft, nontender Extremities-mild lower leg edema- improving, no calf tenderness LLE wound healing well no signs of infection Neuro- alert, oriented x 3; no gross focal neurologic deficits Skin- warm & dry Results & Data Results & Data ([facility]) Vital Signs (Past 12 Hours) Vital Signs Temp Pulse Pulse Resp BP Pulse Ox 01/22/21 16:00 76 01/22/21 15:06 36.7 C 73 18 107/73 98 01/22/21 11:29 36.2 C L 81 20 121/77 91 01/22/21 07:18 78 01/22/21 07:00 36.6 C 74 20 121/77 97 all noted and reviewed including below Laboratory Results Laboratory Results - last 24 hr 01/21/21 01/22/21 01/22/21 20:18 07:18 09:46 WBC 5.54 RBC 3.02 L Hgb 8.5 L Hct 26.8 L MCV 88.7 MCH 28.1 MCHC 31.7 L RDW Std Deviation 61.2 H RDW Coeff of Karla 19.1 H Plt Count 238 MPV 10.4 Immature Gran % (Auto) 0.2 Neut % (Auto) 82.1 Lymph % (Auto) 11.4 [place] % (Auto) 4.5 Eos % (Auto) 1.4 Baso % (Auto) 0.4 Neut # (Auto) 4.55 Lymph # (Auto) 0.63 L [place] # (Auto) 0.25 Eos # (Auto) 0.08 Baso # (Auto) 0.02 Immature Gran # (Auto) 0.01 Sodium Potassium Chloride Carbon Dioxide Anion Gap BUN Creatinine Est Cr Clr Drug Dosing Est GFR ( Amer) Est GFR (Non-Af Amer) BUN/Creatinine Ratio Glucose POC Glucose 116 H 72 Calcium SARS-CoV-2 Ag (Rapid) 01/22/21 01/22/21 01/22/21 09:46 11:09 16:25 WBC RBC Hgb Hct MCV MCH MCHC RDW Std Deviation RDW Coeff of Karla Plt Count MPV Immature Gran % (Auto) Neut % (Auto) Lymph % (Auto) [place] % (Auto) Eos % (Auto) Baso % (Auto) Neut # (Auto) Lymph # (Auto) [place] # (Auto) Eos # (Auto) Baso # (Auto) Immature Gran # (Auto) Sodium 141 Potassium 3.2 L Chloride 112 H Carbon Dioxide 22 Anion Gap 7.0 BUN 32 H Creatinine 1.10 Est Cr Clr Drug Dosing 52.1 Est GFR ( Amer) 57.3 Est GFR (Non-Af Amer) 49.4 BUN/Creatinine Ratio 29.0 H Glucose 96 POC Glucose 89 96 Calcium 7.6 L SARS-CoV-2 Ag (Rapid) 01/22/21 Unknown WBC RBC Hgb Hct MCV MCH MCHC RDW Std Deviation RDW Coeff of Karla Plt Count MPV Immature Gran % (Auto) Neut % (Auto) Lymph % (Auto) [place] % (Auto) Eos % (Auto) Baso % (Auto) Neut # (Auto) Lymph # (Auto) [place] # (Auto) Eos # (Auto) Baso # (Auto) Immature Gran # (Auto) Sodium Potassium Chloride Carbon Dioxide Anion Gap BUN Creatinine Est Cr Clr Drug Dosing Est GFR ( Amer) Est GFR (Non-Af Amer) BUN/Creatinine Ratio Glucose POC Glucose Calcium SARS-CoV-2 Ag (Rapid) Negative (1) Sepsis Sepsis acute organ dysfunction status: with acute organ dysfunction Sepsis type: sepsis due to unspecified organism Severe sepsis acute organ dysfunction type: unspecified Severe sepsis shock status: unspecified Qualified Code(s): A41.9 - Sepsis, unspecified organism; R65.20 - Severe sepsis without septic shock
[2021-01-22] MEDS: DOCUSATE SODIUM/SENNA 50/8.6MG TAB PO SCH (21:21)
[2021-01-22] MEDS: DULoxetine HCL 20 MG CAP PO SCH (21:21)
[2021-01-22] MEDS: ATORVASTATIN 40 MG TAB PO SCH (21:21)
[2021-01-23] MEDS: oxyCODONE HCL IR 5 MG TAB (IMMEDIATE RELEASE) PO PRN ×2 (03:19→23:08)
[2021-01-23] MEDS: buPROPion SR 100 MG TABCR PO SCH ×2 (07:14→12:58)
[2021-01-23] MEDS: ANUSOL SUPP 1 EA PR SCH ×2 (08:34→20:51)
[2021-01-23] MEDS: POLYETHYLENE (MIRALAX) 17 GM PACK PO SCH (08:34)
[2021-01-23] MEDS: FERROUS SULFATE 325 MG TAB PO SCH ×2 (08:34→16:44)
[2021-01-23] MEDS: CHOLECALCIFEROL 1,000 UNITS 25 MCG TAB PO SCH (08:36)
[2021-01-23] MEDS: busPIRone 5 MG TAB PO SCH ×3 (08:36→20:55)
[2021-01-23] MEDS: PANTOprazole 40 MG TAB PO SCH (08:36)
[2021-01-23] MEDS: ADVANCED PROBIOTIC 1250 MG CAPSULE PO SCH (08:36)
[2021-01-23] MEDS: POTASSIUM CHLORIDE CRTAB 20 MEQ TABCR PO SCH (08:37)
[2021-01-23] MEDS: FUROSEMIDE 20 MG TAB PO SCH ×2 (08:37→16:45)
[2021-01-23] MEDS: METOPROLOL SUCC 25MG EXT REL TAB PO SCH ×2 (08:38→20:51)
--- NOTE | 2021-01-23 10:25 | XRay Report ---
KUB CLINICAL HISTORY: Nephrolithiasis. FINDINGS: An AP, portable, supine abdominal radiograph is correlated with abdominal CT dated . There is a nonobstructed abdominal bowel gas pattern noting mild to moderate colonic fecal retenti on. Suture and mesh material project across the abdomen. A left ureteral stent is in place. Question a small stone along the course of the stent projecting over the sacrum. No additional calcifications are seen projecting over either kidney. IVC filter is in place. The skeletal structures are osteopeni c. There is advanced lumbosacral spondylosis as well as scoliosis. A right hip arthroplasty is in dyan ce. Extensive chronic deformity of the left hip/proximal femur is unchanged from previous. IMPRESSION: 1. A left ureteral stent is in place. 2. Question a small calcification along the course of the stent overlying the sacrum. Electronically signed by: Srinivasan Finn M.D. 01/23/2021 10:24 AM
[2021-01-23] MEDS: ENOXAPARIN INJ 40 MG/0.4 ML SYR SQ SCH (12:59)
[2021-01-23] MEDS: AMPHOTERICIN B 50 MG in WATER, STERILE 1,000 ML IR SCH (13:32)
--- NOTE | 2021-01-23 13:48 | Urology Progress Note ---
Date of Service January 23, 2021 Assessment & Plan (1) Left ureteral stone: (2) Recurrent UTI (urinary tract infection): - Patient seen and examined with Dr. Pabon. - She remains afebrile. - Doing well on her current antifungal regimen. - Continue Amphotericin B bladder irrigation for total of 7 days, okay to discontinue sooner if she is discharged. - She is pending discharge to SNF, prior [facility] authorization denied. - Recommend maintain 3-way Ramírez catheter upon discharge, complete irrigation as above. - She can have a voiding trial at [facility] facility after completion of treatment. - Discussed options of proceeding with versus postponing stone treatment, origin ally scheduled for tomorrow. - Patient prefers to reschedule to allow more time to clinically progress. - Start Methenamine 1g HS tonight. - Recommend discharge to SNF with oral Fluconazole. Spoke with pharmacy who recommended renal dose of 100 mg daily. - Will need repeat fungal urine culture in 1 week. - Outpatient follow-up arranged with urology service to discuss definitive stone treatment. - Expected clinical course reviewed with patient, all questions answered. Admission and Anticipated Discharge Date Admission Date: January 05, 2021 Supervising Physician Co-Signing Physician Notes Discussed possible ureteroscopy in the a.m. however patient does not feel she is sufficiently recovered to undergo anesthesia and wishes to delay. The patient has felt markedly better since having amphotericin and its not clear that she will recur or that this will prevent her from being at risk for recurrence and I am concerned that she could have recurrence of urosepsis if she leaves however would send her out on the phentermine and if possible Diflucan even though I do not think it will sterilize her urine it may partially retard the growth of what ever she is on. Would like to see her back in several weeks to schedule surgery soon as possible to remove the two small stones in the mid ureter that was seen on repeat CT scan and appear to still be there on KUB today. The stones are small enough that it is possible that they might come out if we just remove the stent but given the number of difficulties that she has had murray probably worthwhile to try to remove them completely. She also has some small fragments up in her kidney would not try to remove those as they are at the lower pole and are quite small would be concerned that the length of time would probably increase the risk of urosepsis. Also will repeat fungal culture and may start her on amphotericin as an outpatient by placing a catheter and clamping it with amphotericin in it prior to her return if it grows out something. Overall patient's had a very difficult experience and wish to remove the stent as soon as possible. Subjective Patient resting in bed, alert and comfortable. No reported issues overnight. Overall feeling much better since starting Amphotericin B bladder irrigations. Denies bladder pain or pressure. Denies abdominal pain. Does note lower back discomfort which is chronic. No nausea or vomiting. Denies fever or chills. Tolerating Ramírez catheter well. Ramírez intact, patent, and draining cloudy yellow urine with debris. Amphotericin B bladder irrigation in place. No dysuria or hematuria. Chart review: Afebrile Labs 01/22 reviewed - creatinine 1.10 WBC 5.54 Hgb 8.5 KUB today - IMPRESSION: 1. A left ureteral stent is in place. 2. Question a small calcification along the course of the stent overlying the sacrum. Denies additional urologic concerns today. Review of Systems Constitutional: as per Subjective / HPI; no fever and no chills Gastrointestinal: as per Subjective / HPI; no nausea and no vomiting Genitourinary: as per Subjective / HPI Musculoskeletal: as per Subjective / HPI Physical Exam Constitutional: well developed, well nourished, cooperative and comfortable; no acute distress Respiratory: normal respiratory effort and able to speak in complete sentences; no respiratory distress and no audible wheezes Gastrointestinal (Abdomen): Inspection/Auscultation: abdomen normal to inspection; abdomen not distended Percussion/Palpation: abdomen soft; abdomen nontender and no guarding Psychiatric: Orientation: alert, oriented x 3 and cooperative Affect: euthymic affect Genitourinary: Ramírez catheter intact draining cloudy yellow urine with sediment. Results & Data ([facility]) Vital Signs (Past 12 Hours) Vital Signs Temp Pulse Pulse Resp BP Pulse Ox 01/23/21 11:04 36.3 C L 76 18 111/59 L 97 01/23/21 08:00 79 01/23/21 07:37 36.7 C 84 20 119/71 90 01/23/21 03:37 36.4 C L 71 16 125/65 98 PG Care Time/CCT Total # of Minutes Spent Total Time Spent with Patient: Total time spent is greater than 50% in coordination of care (as documented) at patient's floor/unit and/or counseling patient: Coding Level of Care Code 66528 Subseq Hosp Care Lvl 2 Diagnoses Left ureteral stone N20.1 Recurrent UTI (urinary tract infection) N39.0
--- NOTE | 2021-01-23 18:11 | Hospitalist Progress Note ---
Date of Service January 23, 2021 Assessment & Plan (1) Sepsis: (2) Cystitis: (3) SELWYN (acute kidney injury): (1) Sepsis: per Dr. Kirby: 75 yr female with H/O DM II, chronic diastolic heart failure, aortic stenosis, CKD III, HTN, CVA, PVD, COPD, uterine cancer s/p radiation, gastric bypass, mood disorder, factor V Leiden mutation, colitis, recurrent UTI secondary to obstructive uropathy presented to ER with complaint of nausea and generalized weakness. Septic Shock Resolved due to complicated UTI resolved , vitals been stable Likely Source: Complicated UTI H/O Left ureteral stent placement by Dr. Castellanos - 12/02/2020 -- CT Abdomen: Interval resolution of the left-sided hydronephrosis. The left ureteral stent is unchanged in position. There remains a punctate mid left ureteral stone adjacent to the ureteral stent. Stable left-sided nephrolithiasis. Stable punctate bladder calculi. Near complete resolution of the colitis with only mild pericolonic fat stranding remaining at the mid sigmoid colon. No evidence for bowel obstruction. Severe body wall edema which has progressed. Cholelithiasis. Trace left pleural effusion has also improved. Persistent bladder wall thickening. -- CXR: No acute cardiopulmonary findings. No change in appearance of the chest. -- Negative COVID Screen -- Urine Culture: Klebsiella, Enterococcus VRE (Enterococcus VRE likely colonization as per ID) ID consulted: d/c Meropenem>> transition to Augmentin : last dose completed 01/13/2021 -- stable afebrile -- discussed with Urologist Dr. Pabon repeat CT abdomen ordered: noted Amphotericin Day 6 in progress Bladder pain improving Urine culture: negative -- remains stable overall plan for ureteral stent removal as outpatient in 1-2 weeks per Urology Acute Kidney Injury on CKD III Likely ATN -- cr improved to approx baseline Baseline Cr ~1 Avoid nephrotoxic agents as able -- crea improved to 1.09 back to baseline -- on Lasix 10mg IV tid transitioned to Lasix 40mg in AM, 20mg PM edema improving monitor volume status, renal function closely including at [facility] Recent colitis/hematochezia per Dr. Kirby: no further GI symptoms CT abdomen pelvis shows near complete resolution of colitis H/O poor bowel prep for colonoscopies in past. Outpatient colonoscopy planned D/w Son Shon-reports of frustration -every time pt was scheduled for outpt colonoscopy , pt could not have the procedure done ( readmitted to hospital few days prior ) son believes lot of the pt's symptoms -weakness, sob could be possibly due to anemia , GI bleed wants to have a discussion with Gi team to consider EGD/colonoscopy while in hospital pt's H&H been stable, no blood in stool GI recommends out pt follow up -- Hg stable at 8 no signs of melena/hematochezia per patient -- 01/21 noted to have streak of blood per rectum when being cleaned patient reports some discomfort with BM (+) external hemorrhoid noted Anusol supp BID no recurrence Elevated troponin In setting of renal failure /evidence of ACS no complain of chest pain or SOB ECHO: Left ventricle wall motion is normal. Factor V Leiden mutation/H/O Recurrent PE/DVT S/P IVC filter placement Off Coumadin secondary to recurrent hematochezia High risk for bleeding complication, poor candidate for long-term anticoagulation on Lovenox SC Chronic diastolic heart failure EF 55 to 59%, TTE 2019 monitor I's and O's given IV Lasix , volume status has improved now euvolemic Severe aortic stenosis TAVR contemplated in the future pending cardiac catheterization Cardiology following -appreciate input Patient remains acutely ill with infection/sepsis, renal failure Needs to improve clinically before considering cardiac intervention History of uterine Cancer S/P Radiation DVT Px: Lovenox SQ Code Status DNI Disposition: pending patient was to go to [facility], but Insurance has denied this case management on board Admission and Anticipated Discharge Date Admission Date: January 05, 2021 Subjective ff up for sepsis, UTI, etc seen resting in bed, comfortable in good spirits states she feels fine overall No shortness of breath, chest pain, palpitations, dizziness, nausea Denies abdominal pain today No other symptoms Review of Systems Review of Systems: All systems reviewed & are unremarkable except as noted in Subjective Physical Exam Physical Exam: General- oriented x 3, not in distress, speaks in sentences with no effort or accessory muscle use Eyes- anicteric Neck- no JVD Lungs- clear breath sounds bilaterally No crackles Heart- normal rate, regular rhythm; no murmurs Abdomen- normal bowel sounds, nondistended, soft, nontender Left hip with edema, and some ecchymosis, improving, no tenderness per patient this is chronic for her Extremities-edema improving, mild, no calf tenderness Extremity wound healing well No signs of infection Neuro- alert, oriented x 3; no gross focal neurologic deficits Skin- warm & dry Results & Data Results & Data ([facility]) Vital Signs (Past 12 Hours) Vital Signs Temp Pulse Pulse Resp BP Pulse Ox 01/23/21 15:53 78 01/23/21 14:44 36.7 C 84 18 104/69 96 01/23/21 11:04 36.3 C L 76 18 111/59 L 97 01/23/21 08:00 79 01/23/21 07:37 36.7 C 84 20 119/71 90 all noted and reviewed including below Laboratory Results Laboratory Results - last 24 hr 01/22/21 01/23/21 01/23/21 20:08 07:30 09:19 Potassium 3.6 POC Glucose 90 75 01/23/21 01/23/21 11:25 16:43 Potassium POC Glucose 135 H 158 H (1) Sepsis Sepsis acute organ dysfunction status: with acute organ dysfunction Sepsis type: sepsis due to unspecified organism Severe sepsis acute organ dysfunction type: unspecified Severe sepsis shock status: unspecified Qualified Code(s): A41.9 - Sepsis, unspecified organism; R65.20 - Severe sepsis without septic shock
[2021-01-23] MEDS: DULoxetine HCL 20 MG CAP PO SCH (20:55)
[2021-01-23] MEDS: DOCUSATE SODIUM/SENNA 50/8.6MG TAB PO SCH (20:55)
[2021-01-23] MEDS: METHENAMINE HIPPURATE 1 GM TAB PO SCH (20:55)
[2021-01-23] MEDS: ATORVASTATIN 40 MG TAB PO SCH (20:55)
[2021-01-23] MEDS: MICONAZOLE NITRATE POWDER 43 GM EXT PRN (23:08)
[2021-01-24] MEDS: buPROPion SR 100 MG TABCR PO SCH ×2 (06:24→13:13)
[2021-01-24] MEDS: oxyCODONE HCL IR 5 MG TAB (IMMEDIATE RELEASE) PO PRN ×3 (06:24→18:52)
[2021-01-24 07:00] LABS: BUN Creatinine Ratio 25.3 (10-20); Calcium 8.1 mg/dl (8.5-10.1); Creatinine Clr Calc Pharmacy 47.3 ml/min; Est GFR (African American) 52.6; Est GFR (Non-African American) 45.4; Magnesium 1.8 mg/dl (1.8-2.4); Potassium 3.7 mmol/L (3.5-5.1)
[2021-01-24] MEDS: ADVANCED PROBIOTIC 1250 MG CAPSULE PO SCH (08:04)
[2021-01-24] MEDS: POTASSIUM CHLORIDE CRTAB 20 MEQ TABCR PO SCH (08:04)
[2021-01-24] MEDS: PANTOprazole 40 MG TAB PO SCH (08:04)
[2021-01-24] MEDS: busPIRone 5 MG TAB PO SCH ×3 (08:05→21:23)
[2021-01-24] MEDS: FERROUS SULFATE 325 MG TAB PO SCH ×2 (08:05→16:03)
[2021-01-24] MEDS: CHOLECALCIFEROL 1,000 UNITS 25 MCG TAB PO SCH (08:05)
[2021-01-24] MEDS: METOPROLOL SUCC 25MG EXT REL TAB PO SCH ×2 (08:06→22:20)
[2021-01-24] MEDS: ANUSOL SUPP 1 EA PR SCH ×2 (08:07→21:23)
[2021-01-24] MEDS: FUROSEMIDE 20 MG TAB PO SCH ×2 (08:07→17:07)
[2021-01-24] MEDS: POLYETHYLENE (MIRALAX) 17 GM PACK PO SCH (08:07)
[2021-01-24] MEDS: ONDANSETRON INJ 2 MG/ML 2 ML VIAL IV PRN (09:26)
[2021-01-24] MEDS: traMADol HCL 50 MG TABLET PO PRN (09:53)
[2021-01-24] MEDS: CARBOHYDRATES FOR HYPOGLYCEMIA PO PRN ×2 (11:43→12:10)
[2021-01-24] MEDS: AMPHOTERICIN B 50 MG in WATER, STERILE 1,000 ML IR SCH (13:11)
[2021-01-24] MEDS: ENOXAPARIN INJ 40 MG/0.4 ML SYR SQ SCH (13:13)
[2021-01-24] MEDS: ALUMINUM/MAGNESIUM/SIMETH (MAALOX MAX) 30 ML UDC PO PRN (15:30)
[2021-01-24] MEDS: ACETAMINOPHEN 325 MG TAB PO PRN (16:02)
[2021-01-24] MEDS: ATORVASTATIN 40 MG TAB PO SCH (21:23)
[2021-01-24] MEDS: DOCUSATE SODIUM/SENNA 50/8.6MG TAB PO SCH (21:23)
[2021-01-24] MEDS: DULoxetine HCL 20 MG CAP PO SCH (21:23)
[2021-01-24] MEDS: METHENAMINE HIPPURATE 1 GM TAB PO SCH (21:23)
[2021-01-24] MEDS: MICONAZOLE NITRATE POWDER 43 GM EXT PRN (21:24)
[2021-01-24] MEDS ORDERED: SODIUM CHLORIDE 0.9% 1000ML 1,000 ML IV ONE (22:31)
[2021-01-24 23:34] LABS: Hematocrit (blood only) 25.6 % (37-47); Hemoglobin 8.3 g/dL (12.0-16.0); Immature Granulocytes # (auto) 0.02 K/uL (0.00-0.02); Immature Granulocytes % (auto) 0.3 %; Lymphocytes # (auto) 0.39 K/uL (1.2-3.4); Lymphocytes % (auto) 5.7 %; Mean Corpuscular Hemoglobin 28.6 pg (25-34); Mean Corpuscular Volume 88.3 fL (80-100); Mean Platelet Volume 10.3 fL (7.4-10.4); Monocytes # (auto) 0.22 K/uL (0.11-0.59); Monocytes % (auto) 3.2 %; Neutrophils % (auto) 90.8 %; Platelet Count 192 K/uL (130-400); RDW Coefficient of Variation 19.6 % (11.5-14.5); RDW Standard Deviation 62.5 fL (36.4-46.3); White Blood Count 6.83 K/uL (4.8-10.8)
[2021-01-24] MEDS ORDERED: traMADol HCL 50 MG TABLET PO STA (23:41)
[2021-01-24 23:43] LABS: Mean Corpuscular Hgb Conc 32.4 g/dL (32-36)
[2021-01-24 23:56] LABS: Albumin Level 1.4 gm/dl (3.4-5.0); BUN Creatinine Ratio 23.5 (10-20); Bilirubin Direct 0.2 mg/dl (0-0.2); Calcium 7.4 mg/dl (8.5-10.1); Creatinine Clr Calc Pharmacy 38.2 ml/min; Est GFR (African American) 40.7; Est GFR (Non-African American) 35.1; Potassium 4.4 mmol/L (3.5-5.1)
[2021-01-24 23:58] LABS: Bilirubin,Total 0.3 mg/dl (0.2-1); Total Protein 3.9 gm/dl (6.4-8.2)
[2021-01-25] MEDS ORDERED: STAT IV Infusion **Titration per Protocol STA (00:06)
--- NOTE | 2021-01-25 00:11 | Critical Care Progress Note ---
Date of Service January 25, 2021 Assessment & Plan (1) Admitted to intensive care unit: Reason Critically Ill: 75-year-old female represent to the ICU with hypotension/shock requiring vasopressor support. Neuro - -CAM ICU neg. + inattention. RAAS 0. Neg for disorganized thinking. A&Ox3 -Mood disorder/anxiety depression: Continue home med regimen bupropion, buspirone, Cymbalta. Cardiac/Vascular - Shock patient received 1 L bolus with SBP remaining in 60, creatinine and lactate elevated to correlate. Elevated pro-Joseph suggestive of septic shock -Most likely secondary to septic shock, suspect urinary source versus cellulitis? -See ID work-up below -H&H consistent with prior studies -Random cortisol significantly elevated, no indication for steroids -Mild elevation of troponin 0.06, no ST elevation on EKG. trend and monitor on telemetry -Echo 01/06/2021 EF 55-60%, moderate pulmonary hypertension severe -Continue levo drip for maps greater than 65, arterial line placed on arrival to ICU CVA, PVDcontinue statin HTNhold MTP Severe AScardiology on board. Plan for TAVR work-up once medically stable Respiratory - -History of OSABiPAP HS 26/10 home settings -Currently maintaining oxygen saturation on room air with sats 98 to 100% -No active disease noted on chest x-ray -BiPAP nightly and as needed shortness of breath -Continuous monitoring on pulse ox GI - N.p.o. LFTs unremarkable Hepatobiliary unremarkable on CT imaging. GERDcontinue PPI RENAL/LYTES - SELWYN on CKD stage III -Creatinine previously returned to baseline, however 1.5 on repeat BMP this evening -Hydronephrosis resolved on CT imaging and L ureteral stent in place -Most likely prerenal with recurrence of hypotension -Keep MAP greater than 65 -Avoid nephrotoxins and renally adjust medication -Strict Is/Os -ATN might be playing a role -Careful with fluid resuscitation given diastolic heart failure/severe Lactic acidosislactate of 3.0, no anion gap on BMP -Ischemic versus septic in etiology, will treat underlying causes and trend - UTI/cystitisthree-way Mccurdy inserted for amphotericin B irrigation after urine culture grew yeast, currently finishing back 05/16 -Completed antibiotic course for Klebsiella/VRE bacterial UTIs, started on Urex per urology. -Transitioning back to IV antibiotics given sepsis, see ID -Tentative plan for urology to remove ureteral stent after discharge, stent redemonstrated as patent on CT abdomen -History of ureteric cancerstatus post radiation ENDO - -DM type IImost recent A1c of 4.6 and continued hypoglycemic on this admission. -Sliding scale per protocol, and ICU hyperglycemic protocol -TSH within normal limit -continue ACHS BSG checks, increase frequency if becomes symptomatic HEME - -hemoglobin remains stable with previous baselines, monitor routine CBCs and transfuse if needed -Factor V Leyden mutation with history of DVT/PEs/p IVC filter -No longer on Coumadin due to recurrent hematochezia ID - Sepsismultiple potential sources of infection including recurrence of UTI versus left lower extremity cellulitis versus stasis ulcers -Pro-Joseph and lactate elevated, no leukocytosis on CBC or fevers? -previously finished treatment of complicated UTI with VRE and Klebsiella. Currently finishing bag 05/16 of amphotericin B irrigation for urinary yeast infection Chest x-ray without active disease, doubt pulmonary source. Nasal MRSA negative -CT abdomen and pelvis appear similar to prior studies, without evidence of intra-abdominal source. See report -CT left hip and left lower extremity without evidence of gas or loculated subcutaneous abscess. Favor cellulitis with soft tissue edema. -Blood cultures and UA pending -Starting Dapto and cefepime Prophylaxis VTE: Lovenox GI: Protonix Lines: Right IJ, right radial A-line, mccurdy Diet: N.p.o. for now Dispo: ICU while on vasopressors I have personally spent 60 minutes of critical care time in the direct management of this patient. This is a life/limb threatening event. This includes time spent evaluating patient, direct bedside care, chart review, placing orders, interpretation of diagnostic studies, discussion with consultants, patient, and family members, as well as other required patient management activities. This time is exclusive of all separately billable procedures, and teaching time and separate from and in addition to any other critical care service time. Thank you for allowing us to participate in the care of this patient. Please refer to my attending physician's documentation for any further recommendations. (2) Anasarca: (3) Sepsis associated hypotension: (4) Obesity: (5) Left ureteral stone: (6) Shock: (7) Sepsis: (8) SELWYN (acute kidney injury): (9) UTI (urinary tract infection), bacterial: (10) Factor V Leiden mutation: (11) Acute on chronic heart failure with preserved ejection fraction (HFpEF): (12) Cellulitis of left leg: (13) Anemia: (14) CKD (chronic kidney disease), stage III: (15) Aortic stenosis, severe: Admission and Anticipated Discharge Date Admission Date: January 05, 2021 Subjective Ms. booker is 75-year-old female with past medical history including DM type II, diastolic heart failure, severe aortic stenosis, CKD stage III, HTN, CVA, PVD, COPD, uterine cancer s/p radiation, gastric bypass, mood disorder, factor V Leyden mutation with history of recurrent PE/DVT (s/p IVC filter), colitis/GI bleed, and recurrent UTIs with obstructive uropathy in November with ureteral stent placement. Was notified by the patient's primary team that the patient had become hypotensive with systolics in the 60s, unresponsive to fluid bolus. She also had an elevated lactate and creatinine. Patient has previously been followed by critical care on this admission for which she was admitted to the ICU earlier with urosepsis and at that time she was requiring vasopressors but was able to be weaned off and downgraded from ICU care. She had previously completed treatment for complicated UTI with VRE and Klebsiella and was undergoing treatment for a UTI with yeast with amphotericin B catheter infusions for which she was on day 7 of 7. She was awaiting discharge to SNF. However, this evening she has become increasingly hypotensive, and she was started on Levophed drip and transferred to the ICU. On arrival to the ICU patient was mentating well without acute distress, however there is noticeable swelling and inflammation to the left hip and thigh. This area is very sensitive to touch. Feels edematous/fluid-filled without evidence of subcutaneous air. She has multiple venous stasis ulcers on the left lower extremity as well. She has bilateral lower extremity edema and has palpable pulses bilaterally. Patient's abdominal exam is benign, and Anne sign negative. Chest x-ray without evidence of pulmonary disease and the patient is maintaining oxygen saturation on room air without difficulty. Given the extent of what appears to be septic shock, she was sent for CT abdomen and pelvis and CT of the left hip and left lower extremity. No definite well-defined loculated subcutaneous abscess noted on the CT but extensive subcutaneous fat stranding and soft tissue edema would clinically correlate with developing cellulitis, per preliminary report. No gas or free air noted on CT reports. There are no significant changes from previous studies on the CT abdomen and pelvis. Blood cultures have been recollected and she is started on broad-spectrum antibiotics. She had a central line still in place and I placed an A-line shortly after arrival to the ICU. Review of Systems Review of Systems: Currently the patient is alert and oriented without acute distress. She does complain of pain to her left hip and left thigh, and these areas are very sensitive to touch. She denies any headache dizziness or visual changes and was asymptomatic during episodes of hypotension. She denies fevers or chills, sore throat, productive cough, wheezing, shortness of breath, palpitations, chest pain, abdominal pain, nausea or vomiting, or diarrhea. Physical Exam Constitutional: + ill appearing, + morbidly obese and cooperative; no acute distress Eyes: PERRL, conjunctivae normal, anicteric sclerae ENMT: external ear and nose normal, oropharynx normal Neck: trachea midline, no thyromegaly Respiratory: normal respiratory effort, lungs clear to auscultation Cardiovascular: RRR, no murmur, no edema Heart Sounds: normal S1 and normal S2; no murmur Extremities: normal capillary refill Generalized anasarca and bilateral lower extremity edema +4 Gastrointestinal (Abdomen): normal bowel sounds, soft, nontender, no hepatosplenomegaly Skin: Generalized anasarca, multiple weeping venous stasis ulcers to the left lower extremity, swelling and erythema with patches of purpura noted on the left hip and left thigh. Neurologic: PERRL, EOMI, accommodation nl, no face palsy, no dysarthria Psychiatric: A+Ox3, euthymic affect Results & Data Results & Data ([facility]) Vital Signs (Past 12 Hours) Vital Signs Temp Pulse Pulse Resp BP BP Pulse Ox 01/24/21 19:10 36.5 C 104 H 20 109/72 100 01/24/21 17:05 119/91 01/24/21 15:22 36.3 C L 100 H 18 91/66 L 100 01/24/21 14:21 93 H 01/24/21 12:44 36.8 C 98 H 20 92/58 L 100 Coding Level of Care Code Critical Care 1st 30-74 mins Diagnoses Admitted to intensive care unit Z78.9 Anasarca R60.1 Sepsis associated hypotension A41.9; I95.9 Obesity E66.9 Left ureteral stone N20.1 Shock R57.9 Sepsis A41.9; R65.20 Sepsis acute organ dysfunction status: with acute organ dysfunction Sepsis type: sepsis due to unspecified organism Severe sepsis acute organ dysfunction type: unspecified Severe sepsis shock status: unspecified SELWYN (acute kidney injury) N17.9 UTI (urinary tract infection), bacterial N39.0; A49.9 Factor V Leiden mutation D68.51 Acute on chronic heart failure with preserved ejection fraction (HFpEF) I50.33 Cellulitis of left leg L03.116 Anemia D64.9 CKD (chronic kidney disease), stage III N18.30 Aortic stenosis, severe I35.0 (1) Sepsis Sepsis acute organ dysfunction status: with acute organ dysfunction Sepsis type: sepsis due to unspecified organism Severe sepsis acute organ dysfunction type: unspecified Severe sepsis shock status: unspecified Qualified Code(s): A41.9 - Sepsis, unspecified organism; R65.20 - Severe sepsis without septic shock
[2021-01-25] MEDS ORDERED: ICU PROTOCOL FOR HYPERGLYCEMIA PRN (00:16)
[2021-01-25] MEDS ORDERED: PIPERACILL/TAZOBAC CONSULT ACTIVE PRN (00:28)
[2021-01-25] MEDS ORDERED: DAPTOmycin 425 MG in SYRINGE 0 ML IV SCH (01:00)
[2021-01-25 01:02] LABS: INR 1.2 (0.9-1.1); Partial Thromboplastin Ratio 2.3; Prothrombin Time 12.1 Seconds (9.0-12.0)
[2021-01-25 01:06] LABS: Partial Thromboplastin Time 60.3 Seconds (21.0-31.0)
[2021-01-25] MEDS: NOREPINEPHRINE/D5W 8 MG/508 ML BAG IV SCH ×2 (01:10→11:54)
[2021-01-25] MEDS: NORMOSOL-R 1,000 ML IV SCH ×2 (01:10→13:00)
[2021-01-25] MEDS ORDERED: LACTATED RINGER'S 1,000 ML IV ONE (01:16)
[2021-01-25] MEDS ORDERED: PIPERACILLIN/TAZOBACTAM 3.375 GM in DEXTROSE 5% 100 ML IV ONE (01:30)
[2021-01-25] MEDS ORDERED: fentaNYL citrate 100 MCG/2 ML VIAL IV PRN (02:46)
[2021-01-25 03:33] LABS: Troponin I 0.064 ng/ml (0-0.045)
[2021-01-25 04:11] LABS: Hematocrit (blood only) 26.7 % (37-47); Hemoglobin 8.7 g/dL (12.0-16.0); Mean Corpuscular Hemoglobin 28.5 pg (25-34); Mean Corpuscular Hgb Conc 32.6 g/dL (32-36); Mean Corpuscular Volume 87.5 fL (80-100); Mean Platelet Volume 10.4 fL (7.4-10.4); Platelet Count 209 K/uL (130-400); RDW Coefficient of Variation 19.5 % (11.5-14.5); RDW Standard Deviation 61.6 fL (36.4-46.3); Red Blood Count 3.05 M/uL (4.2-5.4); White Blood Count 6.72 K/uL (4.8-10.8)
--- NOTE | 2021-01-25 04:20 | Procedure Note ---
Procedure Note Date of Service January 25, 2021 Note ARTERIAL LINE PROCEDURE NOTE: Procedure: Arterial Line Placement Attending: Dr. Jeet Quigley Provider: MORGAN Smart Indication: Monitoring on Pressors Anesthesia: Lidocaine 1% Line placed emergently in the setting of hypotension/shock requiring vasopressor support A time-out was completed verifying correct patient, procedure, site, positioning, and implant(s) or special equipment if applicable. Allens test was performed to ensure adequate perfusion. Patients right wrist was prepped and draped in the usual sterile fashion. Ultrasound guidance was used to aid needle placement. A 20g Arrow arterial line was introduced into the right radial artery. Catheter was threaded, and the needle was removed with appropriate blood return. Good waveform was observed. The patient tolerated the procedure well. Confirmation of placement with ultrasound. Blood Loss: Minimal Complications: None Procedural Ultrasound Guidance: Procedure Date: 01/25/2021 Indication: Arterial line insertion Attending: Dr. Jeet Quigley Provider: MORGAN Smart Artery Identified: YES Line confirmed in Artery with ultrasound: Yes Complications: NONE Patient tolerated procedure: WELL Coding CPT Codes Tubes, Drains, and Vasc Access - Tubes, Drains, and Vasc Access: [id number] Place catheter in vein superior or inferior vena cava ([id number]) Tubes, Drains, and Vasc Access - Tubes, Drains, and Vasc Access: [id number] Ultrasound Guidance For Vascular ([id number]) [facility] [place]Ch[place]) Tubes, Drains, and Vasc Access Procedure 3: Tubes, Drains, and Vasc Access: [id number] Place catheter in vein superior or inferior vena cava Procedure 4: Tubes, Drains, and Vasc Access: [id number] Ultrasound Guidance For Vascular
[2021-01-25 04:29] LABS: BUN Creatinine Ratio 23.4 (10-20); Calcium 7.5 mg/dl (8.5-10.1); Creatinine Clr Calc Pharmacy 37.2 ml/min; Est GFR (African American) 39.4; Magnesium 1.7 mg/dl (1.8-2.4); Phosphorus 3.3 mg/dl (2.5-4.9); Potassium 4.4 mmol/L (3.5-5.1)
[2021-01-25 04:51] LABS: Dohle Bodies Occasional; Echinocytes 1+; Immature Granulocytes # (auto) 0.04 K/uL (0.00-0.02); Immature Granulocytes % (auto) 0.6 %; Lymphocytes # (auto) 0.22 K/uL (1.2-3.4); Lymphocytes % (auto) 3.3 %; Monocytes # (auto) 0.16 K/uL (0.11-0.59); Monocytes % (auto) 2.4 %; Neutrophils % (auto) 93.7 %; Ovalocytes 1+; Toxic Vacuolation Occasional
[2021-01-25 05:20] LABS: Troponin I 0.098 ng/ml (0-0.045)
[2021-01-25] MEDS: MAGNESIUM SULFATE / D5W 1 GM/100 ML BAG IV SCH ×3 (05:58→09:30)
[2021-01-25] MEDS ORDERED: PIPERACILLIN/TAZOBACTAM 3.375 GM in DEXTROSE 5% 100 ML IV SCH (06:00)
--- NOTE | 2021-01-25 06:58 | CT Scan Report ---
CT LEFT HIP WITHOUT CONTRAST CLINICAL HISTORY: swelling, pain; sepsis COMPARISON STUDY: MRI of the pelvis July 20, 2019. CT of the abdomen and pelvis January 18, 2011. TECHNIQUE: Axial images of the left hip were obtained without IV contrast. Sagittal and coronal recon structions were viewed. Automated exposure control was utilized for the study. A dose lowering techn ique was utilized adhering to the principles of ALARA. FINDINGS: Chronic posterior superior dislocation of the left femur is noted. As before, the femoral h ead is not visualized. There is evidence for previous left hip arthroplasty with hardware removal. A vertical lucency through the proximal left femur is unchanged. This may reflect an old fracture. Hete rotopic ossification and periosteal reaction of the proximal left femur remains unchanged from earlie r exams. The appearance of the left hip is similar to CTs dating back to June 21, 2020 although the size of the left hip joint effusion appears decreased since that examination. Extensive soft tissue edema is noted. Please note that the CT of the abdomen and pelvis the CT of the left femur will be re ported separately. There is no soft tissue gas. No new fluid collections are identified. A left urete ral stent is better depicted on the abdominal CT. IMPRESSION: 1. Severe chronic deformity of the left hip. This is similar appearance to CTs dating back to June 21, 2020 although the size of the left hip joint effusion appears decreased since that exam. No new f luid collections. 2. 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 Evidence for previous left hip arthroplast y with hardware removal. Stable heterotopic ossification and periosteal reaction. 3. No change in a vertical lucency within the proximal left femur. This may reflect an old fracture. No acute fracture. 4. Extensive subcutaneous edema. ACT 112: Negative or not required by law. Electronically signed by: Duke Terry M.D. 01/25/2021 6:57 AM
--- NOTE | 2021-01-25 07:23 | XRay Report ---
XR chest 1V portable CLINICAL HISTORY: septic shock COMPARISON STUDY: Chest radiograph January 06, 2021. FINDINGS: Lung volumes are normal. Lungs are clear. There is no pneumothorax or pleural effusion. Car diac size is normal. Mediastinal contours are normal. There is no evidence for pulmonary edema. Right internal jugular central line is in place. IVC filter is partially imaged as is a left shoulder arth roplasty. There are old left rib fractures. Severe degenerative changes of the right shoulder are not ed. IMPRESSION: No acute cardiopulmonary findings. No change in appearance of the chest. ACT 112: Negative or not required by law. Electronically signed by: Duke Terry M.D. 01/25/2021 7:22 AM
--- NOTE | 2021-01-25 07:37 | CT Scan Report ---
CT femur LT wo con CT DOSE: 1563.35 mGy.cm CLINICAL HISTORY: wound, sepsis TECHNIQUE: Helical images were acquired in the transverse plane. No intravenous contrast administered . A dose lowering technique was utilized adhering to the principles of ALARA. COMPARISON STUDY: CT scan the abdomen and pelvis dated 01/18/2021 FINDINGS: There is diffuse muscular atrophy of the thigh. There is extensive diffuse soft tissue edema. There are vascular calcifications. There is a small joint effusion at the knee. There is an old chronic fracture deformity of the left hip with dislocation foreshortening and femora l head erosive/destructive changes. There is persistent periostitis. There are no fluid collections on this noncontrast study to indicate an abscess. IMPRESSION: 1. Chronic fracture deformity of the left hip with dislocation and foreshortening. There is femoral h ead erosive/destructive change. There is persistent periostitis 2. Diffuse muscular atrophy 3. Diffuse extensive soft tissue edema 4. Vascular calcifications 5. Advanced arthritic changes within the knee. Joint effusion. 6. Osteopenia ACT 112: Negative or not required by law. Electronically signed by: Brett Vila M.D. 01/25/2021 7:36 AM
--- NOTE | 2021-01-25 07:43 | CT Scan Report ---
CT SCAN OF THE ABDOMEN AND PELVIS WITHOUT CONTRAST CLINICAL HISTORY: sepsis COMPARISON STUDY: 01/18/2021 TECHNIQUE: CT scan of the abdomen and pelvis was performed from the lung bases to the proximal femurs . Images are reviewed in the axial, sagittal, and coronal planes. IV contrast was not administered fo r this examination. A dose lowering technique was utilized adhering to the principles of ALARA. CT DOSE: FINDINGS: Lower chest: There are coronary artery calcifications. There is a small left pleural effusion and tra ce right pleural effusion. There is a small pericardial effusion. There is a hiatal hernia Liver: The unenhanced liver is normal in size, contour, and attenuation. There is no intrahepatic jayda iary ductal dilatation. Gallbladder: Distended. No calculi identified Spleen: Normal in size and attenuation. Pancreas: Unremarkable. Adrenal glands: Stable low density bilateral adrenal gland thickening Kidneys: There is no hydronephrosis. There is left-sided nephrolithiasis. There is an indwelling doub le pigtail left sided nephroureteral stent Bowel: There are no transition zones to indicate bowel obstruction. There is no evidence of acute div erticulitis. There is no evidence of acute appendicitis. Peritoneum: There is no intraperitoneal free air or abdominal ascites. There are postsurgical changes of a ventral hernia repair. Vasculature: There is an indwelling IVC filter the tip of which 7 level of the right renal vein. Ther e is no evidence of abdominal aortic aneurysm. There are aortoiliac atheromatous changes. Adenopathy: None. Pelvic viscera: There is gas in the bladder, likely iatrogenic. There is a Ramírez catheter present. Sm all bladder calculi are visualized. Skeletal structures: There is diffuse muscular atrophy. There is a chronic left hip deformity with a fracture subluxation. There is periostitis present. There are destructive/erosive changes involving t he femoral head. There is diffuse body wall edema. IMPRESSION: 1. No evidence of bowel obstruction. No evidence of free air 2. Left-sided nephrolithiasis 3. Indwelling left-sided nephroureteral stent. Bladder calculi 4. Chronic left hip deformity 5. Small pericardial effusion. Small left pleural effusion. 6. Gallbladder distention. 7. Muscular atrophy. Diffuse body wall edema. ACT 112: Negative or not required by law. Electronically signed by: Brett Vila M.D. 01/25/2021 7:41 AM
[2021-01-25] MEDS: buPROPion SR 100 MG TABCR PO SCH ×2 (07:57→12:59)
[2021-01-25] MEDS: FERROUS SULFATE 325 MG TAB PO SCH ×3 (07:58→17:49)
[2021-01-25] MEDS: CEFEPIME 2,000 MG in SYRINGE 0 ML IV SCH ×2 (07:58→21:17)
[2021-01-25] MEDS: busPIRone 5 MG TAB PO SCH ×3 (08:00→21:18)
[2021-01-25] MEDS: ADVANCED PROBIOTIC 1250 MG CAPSULE PO SCH (08:02)
[2021-01-25] MEDS: PANTOprazole 40 MG TAB PO SCH (08:03)
[2021-01-25] MEDS: CHOLECALCIFEROL 1,000 UNITS 25 MCG TAB PO SCH (08:03)
[2021-01-25] MEDS: POLYETHYLENE (MIRALAX) 17 GM PACK PO SCH (08:21)
[2021-01-25] MEDS: ANUSOL SUPP 1 EA PR SCH (08:21)
[2021-01-25] MEDS: ACETAMINOPHEN 325 MG TAB PO PRN (08:28)
--- NOTE | 2021-01-25 09:49 | Billing Data ---
Date of Service January 25, 2021 Coding Level of Care Code Critical Care 1st - mins
[2021-01-25] MEDS ORDERED: HYDROmorphone INJ 0.5 MG/0.5 ML SYR IV PRN (10:35)
[2021-01-25] MEDS ORDERED: Heparin IV Adult Wt-Based Standard WITH Bolus Protocol IV SCH (10:46)
--- NOTE | 2021-01-25 10:48 | Urology Progress Note ---
Date of Service January 25, 2021 Assessment & Plan (1) Left ureteral stone: (2) Recurrent UTI (urinary tract infection): 75 year-old female patient, with multiple comorbidities, admitted with sepsis and acute UTI. -Plan of care reviewed with Dr. Castellanos. -Transferred overnight to ICU secondary to acute hypotension and presumed septic shock. -She is afebrile. -Labs reviewed - white count normal, creatinine above baseline at 1.5. -Imaging reviewed - left-sided ureteral stent in satisfactory position without hydronephrosis. -Patient completed 7 day course of Amphotericin B bladder irrigations. -Repeat urine and blood cultures pending. -Recommend continued supportive care and antibiotic therapy. -No acute intervention indicated at this time. -Will continue to follow while inpatient. Admission and Anticipated Discharge Date Admission Date: January 05, 2021 Subjective Patient examined, appears fatigued and acutely ill. Was transferred to ICU overnight due to hypotension, presumed septic shock. She reports she is having moderate amount of left thigh pain. Reports she continues to have lower abdominal discomfort. Tolerating mccurdy catheter, Amphotericin B bladder irrigations to be completed today. No hematuria. Denies fever or chills. Does have some nausea, denies vomiting. Reports she overall "does not feel good." Chart review: Afebrile Wbc 6.72 Hgb 8.7 Creatinine 1.50 (previously 1.46) Lactate 3.0, repeat of 2.4 Repeat urine and blood cultures pending. Patient restarted on IV Caspofungin, IV Daptomycin, and IV Cefepime. Repeat CT abd/pelvis - IMPRESSION: 1. No evidence of bowel obstruction. No evidence of free air 2. Left-sided nephrolithiasis 3. Indwelling left-sided nephroureteral stent. Bladder calculi 4. Chronic left hip deformity 5. Small pericardial effusion. Small left pleural effusion. 6. Gallbladder distention. 7. Muscular atrophy. Diffuse body wall edema. Denies additional urologic concerns today. Review of Systems Constitutional: as per Subjective / HPI Gastrointestinal: as per Subjective / HPI and + nausea; no vomiting Genitourinary: as per Subjective / HPI Physical Exam Constitutional: + ill appearing, + obese and cooperative; no acute distress Respiratory: normal respiratory effort and able to speak in complete sentences; no respiratory distress and no audible wheezes Cardiovascular: Generalized anasarca and bilateral lower extremity edema. Gastrointestinal (Abdomen): Inspection/Auscultation: abdomen normal to inspection; abdomen not distended Percussion/Palpation: abdomen soft; abdomen nontender and no guarding Skin: Multiple wound dressings to left lower extremity. Swelling with ecchymotic/discolored area to left hip and upper thigh. Psychiatric: Orientation: alert, oriented x 3 and cooperative Affect: euthymic affect Genitourinary: Mccurdy catheter intact draining cloudy yellow urine. Results & Data ([facility]) Vital Signs (Past 12 Hours) Vital Signs Temp Pulse Pulse Resp BP BP Pulse Ox 01/25/21 06:25 36.6 C 01/25/21 06:20 91 H 23 98 01/25/21 06:10 88 23 96 01/25/21 06:00 90 22 99 01/25/21 05:50 91 H 19 98 01/25/21 05:40 85 21 96 01/25/21 05:30 87 21 97 01/25/21 05:20 86 20 97 01/25/21 05:10 87 20 96 01/25/21 05:00 87 21 99 01/25/21 04:56 88 22 97 01/25/21 04:53 87 20 85/45 L 98 01/25/21 04:50 86 21 97 01/25/21 04:40 86 21 96 01/25/21 04:30 88 21 98 01/25/21 04:23 87 19 100/50 L 96 01/25/21 04:20 86 21 96 01/25/21 04:10 85 21 99 01/25/21 03:53 87 18 97/52 L 01/25/21 03:50 88 19 01/25/21 03:40 91 H 20 01/25/21 03:30 90 20 01/25/21 03:23 80 22 91/57 L 01/25/21 03:20 80 20 01/25/21 03:10 81 19 01/25/21 03:00 84 20 01/25/21 02:53 79 19 106/69 01/25/21 02:50 78 20 01/25/21 02:40 83 19 01/25/21 02:30 87 17 01/25/21 02:27 86 19 99/57 L 01/25/21 02:26 88 17 01/25/21 01:54 86 21 111/53 L 100 01/25/21 01:50 81 17 100 01/25/21 01:40 84 19 99 01/25/21 01:30 79 19 100 01/25/21 01:23 83 110/66 100 01/25/21 01:21 85 128/63 100 01/25/21 01:20 86 100 01/25/21 01:10 82 92 01/25/21 01:02 89 103/55 L 97 01/25/21 01:00 91 H 95 01/25/21 00:55 88 73/46 L 92 01/25/21 00:52 89 60/40 L 01/25/21 00:50 91 H 01/25/21 00:40 89 21 01/25/21 00:30 91 H 24 01/25/21 00:23 67/49 L 01/25/21 00:20 85 17 01/25/21 00:10 90 16 01/25/21 00:00 86 14 01/24/21 23:50 89 14 01/24/21 23:40 93 H 19 01/24/21 23:30 36.4 C L 88 89 22 111/71 100 01/24/21 23:20 88 16 01/24/21 23:10 87 15 01/24/21 23:00 86 15 01/24/21 22:50 88 12 PG Care Time/CCT Total # of Minutes Spent Total Time Spent with Patient: Total time spent is greater than 50% in coordination of care (as documented) at patient's floor/unit and/or counseling patient: Coding Level of Care Code 31186 Subseq Hosp Care Lvl 2 Diagnoses Left ureteral stone N20.1 Recurrent UTI (urinary tract infection) N39.0
[2021-01-25] MEDS ORDERED: CASPOFUNGIN 70 MG in SODIUM CHLORIDE 0.9% 250 ML IV SCH (11:00)
[2021-01-25] MEDS ORDERED: HEPARIN IV BOLUS 6,000 UNITS in SYRINGE 0 ML IV ONE ×2 (11:15→21:15)
[2021-01-25] MEDS: THIAMINE HCL 100 MG TAB PO SCH (11:39)
--- NOTE | 2021-01-25 11:52 | Ultrasound Report ---
ULTRASOUND RIGHT UPPER EXTREMITY VENOUS CLINICAL HISTORY: Deep venous thrombosis. Assess for thrombus around a catheter. COMPARISON STUDY: Chest x-ray dated 01/25/2021. TECHNIQUE: Portable real-time, grayscale, and color Doppler sonography of the right internal jugular and subclavian veins is performed to assess for deep venous thrombosis around an IV catheter. FINDINGS: There is no sonographic evidence of deep venous thrombosis identified in the right internal jugular vein or the right subclavian vein. The right internal jugular vein is patent and normally co mpressible. Normal venous waveforms and augmentation are seen within the right subclavian vein. IMPRESSION: There is no sonographic evidence of deep venous thrombosis identified within the right in ternal jugular or subclavian veins around the IV catheter. ACT 112: Negative or not required by law. Electronically signed by: Srinivasan Finn M.D. 01/25/2021 11:51 AM
--- NOTE | 2021-01-25 11:52 | Ultrasound Report ---
US duplex aorta/iliacs/IVC ltd CLINICAL HISTORY: Bilateral DVTs. History of IVC filter. Evaluate for IVC and iliac vein thrombus. COMPARISON STUDY: No previous studies for comparison. FINDINGS: There is distal IVC and bilateral iliac vein DVT. The proximal IVC appears small but is patent. The proximal renal veins appear patent. IMPRESSION: Bilateral iliac vein thrombosis. Thrombosis of the distal IVC. ACT 112: Negative or not required by law. Electronically signed by: Brett Vila M.D. 01/25/2021 11:51 AM
--- NOTE | 2021-01-25 11:53 | Ultrasound Report ---
BILATERAL LOWER EXTREMITY VENOUS DOPPLER CLINICAL HISTORY: LLE cellulitis vs DVT COMPARISON STUDY: Bilateral largely venous Doppler ultrasound December 12, 2020. TECHNIQUE: Sonography of the deep venous system of the bilateral lower extremities was performed. Co mpression and augmentation were evaluated. FINDINGS: Note is made of extensive deep venous thrombus within the right common femoral, superficial femoral, popliteal, anterior tibial and posterior tibial veins. Thrombus within these vessels was sh own on ultrasound of December 12, 2020. The extent of thrombus appears slightly decreased. Note is als o made of deep venous thrombus within the left common femoral, superficial femoral and popliteal vein s as well as the left profunda. This thrombus was not evident on ultrasound December 12, 2020 and is l ikely acute. IMPRESSION: 1. Deep venous thrombus within the left common femoral, superficial femoral and popliteal veins. This is age indeterminate but is new since ultrasound of December 12, 2020 and is likely acute. 2. Extensive deep venous thrombus within the right lower extremity, mildly decreased since ultrasound of December 12, 2020. ACT 112: Negative or not required by law. Electronically signed by: Duke Terry M.D. 01/25/2021 11:52 AM
--- NOTE | 2021-01-25 11:55 | Ultrasound Report ---
DOPPLER ULTRASOUND OF THE HEPATIC AND PORTAL VASCULATURE CLINICAL HISTORY: Lower extremity deep venous thrombosis. COMPARISON STUDY: Abdominal CT dated 01/25/2021. FINDINGS: Real-time, grayscale, and color Doppler sonography of the hepatic and portal vasculature is performed. The main portal vein is patent with normal direction of flow. The right and left lobe por cathi veins are also patent. The hepatic veins are patent. There is loss of the normal hepatic venous w aveforms. The hepatic artery is patent with velocities measuring up to 65 cm/s. IMPRESSION: Normal Doppler assessment of the hepatic and portal vasculature. See above. Electronically signed by: Srinivasan Finn M.D. 01/25/2021 11:53 AM
[2021-01-25 12:22] LABS: Partial Thromboplastin Ratio 1.6; Partial Thromboplastin Time 42.5 Seconds (21.0-31.0)
[2021-01-25] MEDS: HEPARIN SODIUM/DEXTROSE 25,000 UNITS/500 ML BAG IV SCH (12:59)
--- NOTE | 2021-01-25 13:25 | Palliative Care Consultation ---
Date of Consultation January 25, 2021 Assessment & Plan (1) Palliative care encounter: Ms. Liang is a 75 year old female who presented to the [facility] three weeks ago and was admitted on 01/05. She has an extensive past medical history that includes: Factor V Leiden mutation, aortic stenosis, diastolic CHF, HTN, CVA, PVD, COPD, uterine CA s/p radiation, gastric bypass, and mood disorder. She has had recurrent DVT/PE s/p IVC filter related to her Factor V and recent obstructive uropathy. She has been experiencing significant pain in his bilateral hips and legs with anasarca. Today, a ana duplex ultrasound was obtained revealing extensive bilateral lower extremity total occlusive clot which extends into the distal IVC. She has also been followed by Urology for management of an indwelling left ureteral stent. Palliative Care was consulted to discuss code status and goals of care. I met with Ms. Liang in her room. She was lying flat in her bed as she has pain in her left hip when HOB is elevated. I talked with Ms. Liang about her current hospitalization and overall goals of care. We did discuss her recent ultrasound findings related to her Factor V. Ultimately, she does state that she realizes she is quite ill. We discussed her code status and she has waffled with this question, but when considering her extensive heart and lung disease, with underlying cancer, she recognizes that she may not return to an overall meaningful state of living. She does want to be transitioned to a DNR/DNI, which has reflected in the computer. We did discuss her being on pressors and what her overall goal would be. She is comfortable with continuing her current treatment plan, but does not want to escalate care from here; she does not want to add additional pressors if her blood pressure does not respond to the Levophed. I did talk with her son, Shon, on the phone. I initially called her son, Génesis (GIANNI) and leave a VM. I updated Shon with her current wishes and did express that after discussion with the Motor Coach Tour Operator that her prognosis is poor. I did elio visitation for her two sons to visit this evening as she is more critical today. This, and the above, was discussed with Dr. Quigley and nursing. (2) Endometrial adenocarcinoma: (3) Factor V Leiden mutation: (4) Anasarca: (5) DVT (deep venous thrombosis): History of Present Illness Reason for Consultation: Goals of Care Requesting Physician: Dr. Quigley Attending Physician: Janett Lyman MD History of Present Illness Ms. Liang is a 75 year old female who presented to the [facility] three weeks ago and was admitted on 01/05. She has an extensive past medical history that includes: Factor V Leiden mutation, aortic stenosis, diastolic CHF, HTN, CVA, PVD, COPD, uterine CA s/p radiation, gastric bypass, and mood disorder. She has had recurrent DVT/PE s/p IVC filter related to her Factor V and recent obstructive uropathy. She has been experiencing significant pain in his bilateral hips and legs with anasarca. Today, a ana duplex ultrasound was obtained revealing extensive bilateral lower extremity total occlusive clot which extends into the distal IVC. Palliative Care was consulted to discuss code status and goals of care. Please see A/P for further information. Thanks for involving palliative care with this unfortunate patient. Allergies Allergy/AdvReac Type Severity Reaction Status Date / Time adhesive Allergy Intermediate BLISTERS Verified 01/05/21 15:18 WITH STERI-STRIPS Iodinated Contrast Media Allergy Intermediate hive Verified 01/05/21 15:18 [Iodinated Contrast- Oral and IV Dye] naproxen Allergy Intermediate SWELLING - Verified 01/05/21 15:18 TOLERATES ESTEVES-[address] HALL ciprofloxacin Allergy Mild RASH Verified 01/05/21 15:18 Quinolones Allergy Mild NEUROLOGIC Verified 01/05/21 15:18 SYMPTOMS Home Medications Medication Instructions Recorded Confirmed Type allopurinol 100 mg PO BID 06/23/19 01/05/21 History buspirone 5 mg PO TID 06/23/19 01/05/21 History cyanocobalamin (vitamin B-12) 1,000 mcg IM .Q3M 06/23/19 01/05/21 History duloxetine [Cymbalta] 40 mg PO HS 06/23/19 01/05/21 History ondansetron 4 mg PO Q8H PRN 06/23/19 01/05/21 History Flintstones Complete 1 tab PO QAM 08/27/19 01/05/21 History atorvastatin 40 mg PO PM 12/31/19 01/05/21 History bupropion HCl [Wellbutrin SR] 200 mg PO BID 12/31/19 01/05/21 History calcium carbonate [Tums Extra 750 mg PO .PRN PRN 12/31/19 01/05/21 History Strength Smoothies] nystatin 1 appln TOP BID PRN 12/31/19 01/05/21 History omeprazole 20 mg PO QAM 12/31/19 01/05/21 History oxybutynin chloride 5 mg PO BID 12/31/19 01/05/21 History Probiotic 3,000 mmu cells PO QAM 06/21/20 01/05/21 History potassium chloride [K-Tab] 10 meq PO BID 06/21/20 01/05/21 History metoprolol succinate 12.5 mg PO BID 09/25/20 01/05/21 History cholecalciferol (vitamin D3) 50 mcg PO DAILY 12/01/20 01/05/21 History docusate sodium 100 mg PO BID 12/01/20 01/05/21 History loperamide 2 mg PO Q4H PRN 12/01/20 01/05/21 History furosemide 60 mg PO .4XW 12/08/20 01/05/21 History furosemide 80 mg PO .3XW 12/08/20 01/05/21 History oxycodone 5 mg PO Q4 PRN 12/08/20 01/05/21 History methenamine hippurate 1 gram tablet 1 g PO BID #60 tab 12/22/20 01/05/21 Rx sulfamethoxazole 800 1 tab PO BID 7 Days #14 tab 01/02/21 01/05/21 Rx mg-trimethoprim 160 mg tablet Patient History Medical History Aortic stenosis, severe PAULY 0.62-0.66 cm2 per 08/31/2020 echo. Patient seen by [facility] valve clinic 08/14/20 for possible TAVR, workup initiated with repeat echo, but patient subsequently admitted to [facility] again for urologic issues. 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 Per cardiology consult , "Only mild left ventricular dysfunction and suspect stress mediated etiology rather than acute ischemic event. Patient on appropriate beta-sheryl therapy." Apical wall motion abnormality resolved on 08/04/20 ECHO Atrial fibrillation follows with Michael Bui> NO PACER Bleeding hemorrhoids Carotid artery stenosis [place] , 50%, LICA 50-69% by 5/31/19 doppler Chronic diastolic heart failure CKD (chronic kidney disease), stage III Degenerative disc disease Depression Diarrhea Dyslipidemia Factor 5 Leiden mutation, heterozygous recurrent PE/DVT; status post IVC filter placement, on Coumadin Frequent UTI RECENT HOSPITALIZATION GERD (gastroesophageal reflux disease) [place] filter in place History of COPD "MILD" History of esophageal disorder esophageal diverticulum History of peripheral neuropathy bilateral feet History of stress incontinence Hx of cancer of uterus diagnosed 03/2019---radiation only Hx of gout Hx of iron deficiency anemia Hypertension Intestinal disorder post op malabsorption Left ureteral stone Non-ST elevation WI (NSTEMI) In setting of acute illness (urosepsis 2/2 obstructing stone) 06/21/20 Obesity On anticoagulant therapy warfarin daily NICOLASA on CPAP Pes planus Post traumatic stress disorder Pulmonary embolism hx of bilateral ~2003 12/12 FFL Sleep apnea CPAP Spinal stenosis Stroke 06/03/2019 after I&D left hip--vision loss in left eye--no neurologist Vision abnormalities r peripheral vision loss( posterior ischemic optic neuropathyleft eye), left side altered vision like looking through a screen door Weakness Wheelchair dependence Surgical History H/O cystoscopy 06/23/20 and 07/20/20 [facility] History of arthroplasty of left hip 2006 @ [facility]--infected after, multiple sx's History of biopsy of bladder benign History of colonoscopy with polypectomy History of incision and drainage 05/2019 of left hip History of left hip replacement 03/2019 @ [facility] History of left shoulder replacement History of right hip replacement 2005 @ [facility] History of tonsillectomy and adenoidectomy History of tooth extraction Hx of gastric bypass 2016; [facility] Hx of tubal ligation Hx of umbilical hernia repair mesh inserted S/P colon resection 1984 @ [facility] complete sigmoid removed d/t diverticular disease Family History Mother , age 91 Heart disease Family hx colonic polyps Father , age 42 Factor V deficiency Myocardial infarction Sister No problems noted. Sister Endometrial cancer Brother Family hx colonic polyps Brother , age 50 Meningitis Brother No problems noted. Brother No problems noted. Son No problems noted. Son No problems noted. Son Colon abnormality Son , in his 30 `s , " girl friend over dosed the patients son " Drug overdose Grandfather (Paternal) Family history of diabetes mellitus Family hx of colon cancer Other No family history of adverse response to anesthesia Social History Smoking Status: Former smoker Tobacco Type: Cigarettes Age Started Using Tobacco: 22; packs per day: 0.5; Years Smoked: 25; Cigarettes Per Day: 10; Second Hand Exposure: No; Hx Alcohol Use: No Hx Substance Use: No Preferred Language: Maltese Communication Ability: Effective Visual Impairment: No Limitations Hearing Ability: Normal Housing Officer Required: No Beliefs That Will Affect Care: None marital status: / Current Living Situation: Family Current Living Situation Comment: son current occupational status: retired 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 Feels Safe at Home: Yes Assistive Devices: Glasses Review of Systems Review of Systems: [place] Assessment Scale: Tiredness: 2/3 Shortness of breath: 1/3 Anxiety: 0/3 Pain: 2/3 Palliative Performance Scale: 30% Physical Exam Constitutional: + ill appearing, + obese, + frail appearing and cooperative Respiratory: + cough Auscultation: + diminished lung sounds Cardiovascular: Rate/Rhythm: regular rate and regular rhythm Heart Sounds: normal S1 and normal S2 Extremities: + edema (generalized anasarca ) Gastrointestinal (Abdomen): normal bowel sounds, soft, nontender, no hepatosplenomegaly Skin: no rashes, warm and dry Psychiatric: A+Ox3, euthymic affect Insight: good insight Judgement: good judgement Genitourinary: 3 way mccurdy catheter Results & Data ([facility]) Vital Signs (Past 12 Hours) Vital Signs Temp Pulse Resp BP Pulse Ox 01/25/21 11:23 90 22 98 01/25/21 11:00 96 H 19 98 01/25/21 10:53 89 23 99/65 L 97 01/25/21 10:23 91 H 21 98 01/25/21 10:00 89 23 98 01/25/21 09:53 86 24 101/66 99 01/25/21 09:24 91 H 23 106/53 L 100 01/25/21 09:00 88 23 97 01/25/21 08:53 89 24 94/79 L 97 01/25/21 08:25 86 23 134/56 L 100 01/25/21 08:00 35.9 C L 88 22 99 01/25/21 07:53 86 21 104/56 L 99 01/25/21 07:37 89 23 135/55 L 95 01/25/21 07:00 85 19 98 01/25/21 06:25 36.6 C 01/25/21 06:20 91 H 23 98 01/25/21 06:10 88 23 96 01/25/21 06:00 90 22 99 01/25/21 05:50 91 H 19 98 01/25/21 05:40 85 21 96 01/25/21 05:30 87 21 97 01/25/21 05:20 86 20 97 01/25/21 05:10 87 20 96 01/25/21 05:00 87 21 99 01/25/21 04:56 88 22 97 01/25/21 04:53 87 20 85/45 L 98 01/25/21 04:50 86 21 97 01/25/21 04:40 86 21 96 01/25/21 04:30 88 21 98 01/25/21 04:23 87 19 100/50 L 96 01/25/21 04:20 86 21 96 01/25/21 04:10 85 21 99 01/25/21 03:53 87 18 97/52 L 01/25/21 03:50 88 19 01/25/21 03:40 91 H 20 01/25/21 03:30 90 20 01/25/21 03:23 80 22 91/57 L 01/25/21 03:20 80 20 01/25/21 03:10 81 19 01/25/21 03:00 84 20 01/25/21 02:53 79 19 106/69 01/25/21 02:50 78 20 01/25/21 02:40 83 19 01/25/21 02:30 87 17 01/25/21 02:27 86 19 99/57 L 01/25/21 02:26 88 17 01/25/21 01:54 86 21 111/53 L 100 01/25/21 01:50 81 17 100 01/25/21 01:40 84 19 99 01/25/21 01:30 79 19 100 PG Care Time/CCT Total # of Minutes Spent Total Time Spent with Patient: Total time spent is greater than 50% in coordination of care (as documented) at patient's floor/unit and/or counseling patient: 10 minutes with > 50% of that time spent assessing the patient, discussing goals of care; including code status, discussing plan of care with family and collaborating with IDT Coding Level of Care Code 33326 Inpt Consult Level 4 Diagnoses Palliative care encounter Z51.5 Endometrial adenocarcinoma C54.1 Factor V Leiden mutation D68.51 Anasarca R60.1 DVT (deep venous thrombosis) I82.409 Time Spent (min) 100
--- NOTE | 2021-01-25 13:49 | Hospitalist Progress Note ---
Date of Service January 24, 2021 Assessment & Plan (1) Sepsis: (2) Cystitis: (3) SELWYN (acute kidney injury): (1) Sepsis: 75 yr female with H/O DM II, chronic diastolic heart failure, aortic stenosis, CKD III, HTN, CVA, PVD, COPD, uterine cancer s/p radiation, gastric bypass, mood disorder, factor V Leiden mutation, colitis, recurrent UTI secondary to obstructive uropathy presented to ER with complaint of nausea and generalized weakness. Septic Shock Resolved due to complicated UTI resolved , vitals been stable Likely Source: Complicated UTI H/O Left ureteral stent placement by Dr. Castellanos - 12/02/2020 Negative COVID Screen Urine Culture: Klebsiella, Enterococcus VRE (Enterococcus VRE likely colonization as per ID) ID consulted: d/c Meropenem>> transition to Augmentin : last dose completed 01/13/2021 Remains stable as of this morning Appreciate urologist management and recommendation Amphotericin Day 04/16 in progress Repeat urine culture is negative We will have outpatient urology appointment in 2 weeks following discharge Acute Kidney Injury on CKD III Likely ATN Creatinine improved to approx baseline Baseline Cr ~1 Avoid nephrotoxic agents as able On Lasix 10mg IV tid Transitioned to Lasix 40mg in AM, 20mg PM Edema is minimally improved Recent colitis/hematochezia No further GI symptoms CT abdomen pelvis shows near complete resolution of colitis H/O poor bowel prep for colonoscopies in past. Outpatient colonoscopy planned GI recommends out pt follow up Hg stable at 8 No signs of melena/hematochezia per patient Has been on Anusol twice daily Elevated troponin In setting of renal failure /evidence of ACS no complain of chest pain or SOB ECHO: Left ventricle wall motion is normal. Factor V Leiden mutation/H/O Recurrent PE/DVT S/P IVC filter placement Off Coumadin secondary to recurrent hematochezia High risk for bleeding complication, poor candidate for long-term anticoagulation on Lovenox SC Chronic diastolic heart failure EF 55 to 59%, TTE 2019 monitor I's and O's given IV Lasix , volume status has improved now euvolemic Severe aortic stenosis TAVR contemplated in the future pending cardiac catheterization Cardiology following -appreciate input Patient remains acutely ill with infection/sepsis, renal failure Needs to improve clinically before considering cardiac intervention History of uterine Cancer S/P Radiation DVT Px: Lovenox SQ Code Status DNI Disposition: Denied from [facility]ivas manager surgical is working with referral Admission and Anticipated Discharge Date Admission Date: January 05, 2021 Subjective 01/24/2021 The patient was seen and examined in medical telemetry unit She remained weak and lethargic and complains to have some back pain and left hip pain Denies any other significant symptoms He was noted to have low blood sugar in the morning but that went up with usual treatment Review of Systems Review of Systems: All systems reviewed and are unremarkable except as noted below Cardiovascular: Additional Comments: Generalized edema Neurologic: + generalized weakness Physical Exam Physical Exam: Lying in bed comfortably Constitutional: well developed, well nourished, + ill appearing and + obese Eyes: PERRL, conjunctivae normal, anicteric sclerae ENMT: external ear and nose normal, oropharynx normal Neck: trachea midline, no thyromegaly Respiratory: no respiratory distress Auscultation: + diminished lung sounds Cardiovascular: Rate/Rhythm: regular rate and regular rhythm Heart Sounds: + murmur (2/6 over the remaining otic area) Extremities: + edema Gastrointestinal (Abdomen): Inspection/Auscultation: normal bowel sounds; abdomen not distended Percussion/Palpation: abdomen soft; abdomen nontender Musculoskeletal: Pain with movement of the left lower extremity Neurologic: Alert, awake. Generally very weak and lethargic Psychiatric: Judgement: + limited judgement Results & Data Results & Data ([facility]) Vital Signs (Past 12 Hours) Vital Signs Temp Pulse Resp BP Pulse Ox 01/25/21 11:23 90 22 98 01/25/21 11:00 96 H 19 98 01/25/21 10:53 89 23 99/65 L 97 01/25/21 10:23 91 H 21 98 01/25/21 10:00 89 23 98 01/25/21 09:53 86 24 101/66 99 01/25/21 09:24 91 H 23 106/53 L 100 01/25/21 09:00 88 23 97 01/25/21 08:53 89 24 94/79 L 97 01/25/21 08:25 86 23 134/56 L 100 01/25/21 08:00 35.9 C L 88 22 99 01/25/21 07:53 86 21 104/56 L 99 01/25/21 07:37 89 23 135/55 L 95 01/25/21 07:00 85 19 98 01/25/21 06:25 36.6 C 01/25/21 06:20 91 H 23 98 01/25/21 06:10 88 23 96 01/25/21 06:00 90 22 99 01/25/21 05:50 91 H 19 98 01/25/21 05:40 85 21 96 01/25/21 05:30 87 21 97 01/25/21 05:20 86 20 97 01/25/21 05:10 87 20 96 01/25/21 05:00 87 21 99 01/25/21 04:56 88 22 97 01/25/21 04:53 87 20 85/45 L 98 01/25/21 04:50 86 21 97 01/25/21 04:40 86 21 96 01/25/21 04:30 88 21 98 01/25/21 04:23 87 19 100/50 L 96 01/25/21 04:20 86 21 96 01/25/21 04:10 85 21 99 01/25/21 03:53 87 18 97/52 L 01/25/21 03:50 88 19 01/25/21 03:40 91 H 20 01/25/21 03:30 90 20 01/25/21 03:23 80 22 91/57 L 01/25/21 03:20 80 20 01/25/21 03:10 81 19 01/25/21 03:00 84 20 01/25/21 02:53 79 19 106/69 01/25/21 02:50 78 20 01/25/21 02:40 83 19 01/25/21 02:30 87 17 01/25/21 02:27 86 19 99/57 L 01/25/21 02:26 88 17 01/25/21 01:54 86 21 111/53 L 100 01/25/21 01:50 81 17 100 01/25/21 01:40 84 19 99 Diagnostic Findings -- CT Abdomen: Interval resolution of the left-sided hydronephrosis. The left ure teral stent is unchanged in position. There remains a punctate mid left ureteral stone adjacent to the ureteral stent. Stable left-sided nephrolithiasis. Stable punctate bladder calculi. Near complete resolution of the colitis with only mild pericolonic fat stranding remaining at the mid sigmoid colon. No evidence for bowel obstruction. Severe body wall edema which has progressed. Cholelithiasis. Trace left pleural effusion has also improved. Persistent bladder wall thickening. -- CXR: No acute cardiopulmonary findings. No change in appearance of the chest. (1) Sepsis Sepsis acute organ dysfunction status: with acute organ dysfunction Sepsis type: sepsis due to unspecified organism Severe sepsis acute organ dysfunction type: unspecified Severe sepsis shock status: unspecified Qualified Code(s): A41.9 - Sepsis, unspecified organism; R65.20 - Severe sepsis without septic shock
--- NOTE | 2021-01-25 14:02 | Communication Note ---
Date of Service: January 25, 2021 Obtain venous duplex studies she has extensive bilateral lower extremity total occlusive clot which extends into the distal IVC, portal vein at this time a ppears to be patent. Patient has a central venous catheter that was placed approximately during the start of her admission, and there is no clot identified around that with regards to the central venous catheter given we are no escalation of care I believe it is appropriate to continue with the current vascular access device and we will obtain cultures to elucidate whether this could be a possible source of sepsis. At this point I believe there is significant contribution from difficulty with preload given the extensive venous thrombotic disease and the patient's severe aortic stenosis compromising her hemodynamics. We have engaged palliative care and ultimately we appear to be transitioning towards comfort and I feel changing her central venous access at this time is relatively contraindicated given patient goals. Patient was previously taken off warfarin due to hematochezia, we have started the patient on therapeutic heparin. If we are able to de-escalate care we would not reinitiate pressors as we will not escalate care. Patient is critically ill Patient was discussed in multidisciplinary I have personally spent 55 minutes of critical care time in the direct management of this patient. This is a life/limb threatening event. This includes time spent evaluating patient, direct bedside care, chart review, placing orders, interpretation of diagnostic studies, discussion with consultants, patient, and/or family members regarding treatment decisions, as well as other required patient management activities. This time is exclusive of all separately billable procedures, and teaching time and separate from and in addition to any other critical care service time. Coding Level of Care Code Critical Care dina addt'l 30 min Time Spent (min) 55 Comment x2
--- NOTE | 2021-01-25 14:27 | Hospitalist Progress Note ---
Date of Service January 25, 2021 Assessment & Plan (1) Sepsis: Patient is critically ill: Initially admitted with septic shock which improved with continued management Developed hypotensive shock again early this morning which did not improve with boluses of normal saline She was transferred to ICU for pressor support after appropriate test and administration of antibiotic for possible sepsis Appreciate it application development manager input and recommendation Has been put on intravenous cefepime and daptomycin including pacer resents to improve blood pressure Blood and urine cultures have been sent She remains critically ill and her prognosis is very poor given other comorbid conditions that she have Palliative care is consulted to help with goals of care Family members have been notified by the it application development manager and I will call them personally (2) Cystitis: (3) SELWYN (acute kidney injury): (1) Sepsis: 75 yr female with H/O DM II, chronic diastolic heart failure, aortic stenosis, CKD III, HTN, CVA, PVD, COPD, uterine cancer s/p radiation, gastric bypass, mood disorder, factor V Leiden mutation, colitis, recurrent UTI secondary to obstructive uropathy presented to ER with complaint of nausea and generalized weakness. Septic Shock Resolved due to complicated UTI resolved , vitals been stable Likely Source: Complicated UTI H/O Left ureteral stent placement by Dr. Castellanos - 12/02/2020 Negative COVID Screen Urine Culture: Klebsiella, Enterococcus VRE (Enterococcus VRE likely colonization as per ID) ID consulted: d/c Meropenem>> transition to Augmentin : last dose completed 01/13/2021 Remains stable as of this morning Appreciate urologist management and recommendation Amphotericin Day 04/16 in progress Repeat urine culture is negative Repeat CT scan of the abdomen did not show any stent obstruction Acute Kidney Injury on CKD III Likely ATN Creatinine improved to approx baseline Baseline Cr ~1 Avoid nephrotoxic agents as able On Lasix 10mg IV tid Transitioned to Lasix 40mg in AM, 20mg PM Edema is minimally improved Recent colitis/hematochezia No further GI symptoms CT abdomen pelvis shows near complete resolution of colitis H/O poor bowel prep for colonoscopies in past. Outpatient colonoscopy planned GI recommends out pt follow up Hg stable at 8 No signs of melena/hematochezia per patient Has been on Anusol twice daily Elevated troponin In setting of renal failure /evidence of ACS no complain of chest pain or SOB ECHO: Left ventricle wall motion is normal. Mildly elevated troponins again noted likely secondary to septic shock Factor V Leiden mutation/H/O Recurrent PE/DVT S/P IVC filter placement Off Coumadin secondary to recurrent hematochezia High risk for bleeding complication, poor candidate for long-term anticoagulation on Lovenox SC Chronic diastolic heart failure EF 55 to 59%, TTE 2019 monitor I's and O's given IV Lasix , volume status has improved now euvolemic Severe aortic stenosis TAVR contemplated in the future pending cardiac catheterization Cardiology following -appreciate input Patient remains acutely ill with infection/sepsis, renal failure Needs to improve clinically before considering cardiac intervention History of uterine Cancer S/P Radiation DVT Px: Lovenox SQ Code Status DNI Disposition: Remains critically ill Palliative care consulted Family members are aware as per the note from it application development manager Admission and Anticipated Discharge Date Admission Date: January 05, 2021 Subjective 01/24/2021 The patient was seen and examined in medical telemetry unit She remained weak and lethargic and complains to have some back pain and left hip pain Denies any other significant symptoms He was noted to have low blood sugar in the morning but that went up with usual treatment 01/25/2021 The patient was seen and examined in ICU She was noted to be very hypotensive early this morning which did not improve with 1 L of normal saline bolus She was transferred to ICU for pressor support She remains very weak and lethargic as of this morning and complains some pain involving the left hip Review of Systems Review of Systems: All systems reviewed and are unremarkable except as noted below Cardiovascular: Additional Comments: Generalized edema Musculoskeletal: Pain in left hip Neurologic: + generalized weakness Physical Exam Physical Exam: Lying in bed comfortably with generalized edema Constitutional: well developed, well nourished, + ill appearing and + obese Eyes: PERRL, conjunctivae normal, anicteric sclerae ENMT: external ear and nose normal, oropharynx normal Neck: trachea midline, no thyromegaly Respiratory: no respiratory distress Auscultation: + diminished lung sounds Cardiovascular: Rate/Rhythm: regular rate and regular rhythm Heart Sounds: + murmur (2/6 over the remaining otic area) Extremities: + edema Gastrointestinal (Abdomen): Inspection/Auscultation: normal bowel sounds; abdomen not distended Percussion/Palpation: abdomen soft; abdomen nontender Musculoskeletal: No acute arthritis in any joint but complains to have left hip pain with any movement Neurologic: Alert and awake, extremely weak and lethargic Psychiatric: Judgement: + limited judgement Results & Data Results & Data ([facility]) Vital Signs (Past 12 Hours) Vital Signs Temp Pulse Resp BP Pulse Ox 01/25/21 11:23 90 22 98 01/25/21 11:00 96 H 19 98 01/25/21 10:53 89 23 99/65 L 97 01/25/21 10:23 91 H 21 98 01/25/21 10:00 89 23 98 01/25/21 09:53 86 24 101/66 99 01/25/21 09:24 91 H 23 106/53 L 100 01/25/21 09:00 88 23 97 01/25/21 08:53 89 24 94/79 L 97 01/25/21 08:25 86 23 134/56 L 100 01/25/21 08:00 35.9 C L 88 22 99 01/25/21 07:53 86 21 104/56 L 99 01/25/21 07:37 89 23 135/55 L 95 01/25/21 07:00 85 19 98 01/25/21 06:25 36.6 C 01/25/21 06:20 91 H 23 98 01/25/21 06:10 88 23 96 01/25/21 06:00 90 22 99 01/25/21 05:50 91 H 19 98 01/25/21 05:40 85 21 96 01/25/21 05:30 87 21 97 01/25/21 05:20 86 20 97 01/25/21 05:10 87 20 96 01/25/21 05:00 87 21 99 01/25/21 04:56 88 22 97 01/25/21 04:53 87 20 85/45 L 98 01/25/21 04:50 86 21 97 01/25/21 04:40 86 21 96 01/25/21 04:30 88 21 98 01/25/21 04:23 87 19 100/50 L 96 01/25/21 04:20 86 21 96 01/25/21 04:10 85 21 99 01/25/21 03:53 87 18 97/52 L 01/25/21 03:50 88 19 01/25/21 03:40 91 H 20 01/25/21 03:30 90 20 01/25/21 03:23 80 22 91/57 L 01/25/21 03:20 80 20 01/25/21 03:10 81 19 01/25/21 03:00 84 20 01/25/21 02:53 79 19 106/69 01/25/21 02:50 78 20 01/25/21 02:40 83 19 01/25/21 02:30 87 17 01/25/21 02:27 86 19 99/57 L 01/25/21 02:26 88 17 Laboratory Results Short CBC 01/24/21 01/25/21 Range/Units 23:13 03:58 WBC 6.83 6.72 (4.8-10.8) K/uL Hgb 8.3 L 8.7 L (12.0-16.0) g/dL Hct 25.6 L 26.7 L (37-47) % Plt Count 192 209 (130-400) K/uL BMP 01/24/21 01/25/21 23:07 03:58 Sodium 139 136 Potassium 4.4 D 4.4 Chloride 111 H 110 H Carbon Dioxide 18 L 18 L BUN 34 H 35 H Creatinine 1.46 H 1.50 H Glucose 86 105 H Calcium 7.4 L 7.5 L Cardiac Enzymes 01/24/21 01/25/21 01/25/21 Range/Units 23:07 03:58 10:10 Total Creatine Kinase 19 L (26-192) U/L Troponin I 0.064 H* 0.098 H* 0.128 H* (0-0.045) ng/ml Liver Function 01/24/21 Range/Units 23:07 Total Bilirubin 0.3 (0.2-1) mg/dl Direct Bilirubin 0.2 (0-0.2) mg/dl AST 12 L (15-37) U/L ALT 14 (12-78) U/L Alkaline Phosphatase 105 (45-117) U/L Albumin 1.4 L (3.4-5.0) gm/dl Medications Administered Current Inpatient Medications Acetaminophen (Acetaminophen 325 Mg Tab) 650 mg PO Q4H PRN PRN Reason: Pain or Fever Stop: 02/04/21 18:48 Last Admin: 01/25/21 08:28 Dose: 650 mg Documented by: Al Hydrox/Mg Hydrox/Simethicone (Aluminum/Magnesium/Simeth (Maalox Max) 30 Ml Udc) 30 ml PO Q6H PRN PRN Reason: Indigestion Stop: 02/12/21 02:50 Last Admin: 01/24/21 15:30 Dose: 30 ml Documented by: Atorvastatin Calcium (Atorvastatin 40 Mg Tab) 40 mg PO PM NAY Stop: 02/04/21 20:59 Last Admin: 01/24/21 21:23 Dose: 40 mg Documented by: Bupropion HCl (Bupropion Sr 100 Mg Tabcr) 200 mg PO BID@0700,1300 [facility] Stop: 02/19/21 06:59 Last Admin: 01/25/21 12:59 Dose: 200 mg Documented by: Buspirone HCl (Buspirone 5 Mg Tab) 5 mg PO TID [facility] Stop: 02/04/21 20:59 Last Admin: 01/25/21 12:59 Dose: 5 mg Documented by: Dextrose (Dextrose 50% 50 Ml Syringe) 25 - 50 ml IV UD PRN; Protocol PRN Reason: Hypoglycemia Protocol Stop: 02/04/21 18:48 Last Admin: 01/07/21 12:59 Dose: 25 ml Documented by: Duloxetine HCl (Duloxetine Hcl 20 Mg Cap) 40 mg PO HS [facility] Stop: 02/04/21 20:59 Last Admin: 01/24/21 21:23 Dose: 40 mg Documented by: Ferrous Sulfate (Ferrous Sulfate 325 Mg Tab) 325 mg PO BIDM [facility] Stop: 02/16/21 16:59 Last Admin: 01/25/21 08:21 Dose: Not Given Documented by: Glucagon (Glucagon For Inj 1 Mg Vial) 1 mg SQ UD PRN; Protocol PRN Reason: Hypoglycemia Protocol Stop: 02/04/21 18:48 Glucose (Glucose 10 Tabs/Tube) 4 - 8 tabs PO UD PRN; Protocol PRN Reason: Hypoglycemia Protocol Stop: 02/04/21 18:48 Glucose (Glucose 40% Gel 15 Gm Tube) 15 - 30 gm PO UD PRN; Protocol PRN Reason: Hypoglycemia Protocol Stop: 02/04/21 18:48 Heparin Sodium (Beef Lung) (Heparin 10 Unit/Ml 5 Ml Flush) 5 ml FLUSH PRN PRN PRN Reason: Flush Stop: 02/05/21 22:42 Last Admin: 01/24/21 23:17 Dose: 5 ml Documented by: Hydromorphone HCl (Hydromorphone Inj 0.5 Mg/0.5 Ml Syr) 0.5 mg IV Q6 PRN PRN Reason: Severe Pain Stop: 02/08/21 10:34 Norepinephrine Bitartrate (Levophed/D5w) 8 mg in 508 mls @ 17.164 mls/hr IV .Q24H [facility]; Protocol Stop: 02/24/21 00:14 Last Admin: 01/25/21 11:54 Dose: 0.15 mcg/kg/min, 51.5 mls/hr Documented by: Parenteral Electrolytes (Normosol-R) 1,000 mls @ 80 mls/hr IV .[id number] [facility] Stop: 02/24/21 00:29 Last Admin: 01/25/21 13:00 Dose: 80 mls/hr Documented by: Cefepime HCl 2,000 mg/ Syringe 20 mls @ 5 mls/min IV Q12H [facility]; Protocol Stop: 02/03/21 23:59 Last Admin: 01/25/21 07:58 Dose: 5 mls/min Documented by: Daptomycin 475 mg/ Syringe 9.5 mls @ 4.25 mls/min IV Q24H [facility]; Protocol Stop: 02/05/21 00:59 Caspofungin 50 mg/ Sodium (Chloride) 260 mls @ 260 mls/hr IV DAILY@1100 NAY Stop: 02/05/21 10:59 Heparin Sodium/Dextrose (Heparin Sodium/Dextrose) 25,000 units in 500 mls @ 26 mls/hr IV .[id number] [facility]; Protocol Stop: 02/24/21 11:14 Last Admin: 01/25/21 12:59 Dose: 1,300 units/hr, 26 mls/hr Documented by: Lactobacillus Acidoph/Casei/Rhamnos (Advanced Probiotic 1250 Mg Capsule) 2 cap PO QAM NAY Stop: 02/05/21 08:59 Last Admin: 01/25/21 08:02 Dose: 2 cap Documented by: Miconazole Nitrate (Miconazole Nitrate Powder 43 Gm) 1 appln EXT PRN PRN PRN Reason: Affected Skin Folds Stop: 02/13/21 18:28 Last Admin: 01/24/21 21:24 Dose: 1 appln Documented by: Miscellaneous (Carbohydrates For Hypoglycemia ) 15 - 30 gm PO UD PRN PRN Reason: Hypoglycemia Protocol Stop: 02/04/21 18:48 Last Admin: 01/24/21 12:10 Dose: 30 gm Documented by: Miscellaneous (Icu Protocol For Hyperglycemia) 1 ea N/A PRN PRN; Protocol PRN Reason: Hyperglycemia Protocol Stop: 01/27/21 00:15 Miscellaneous Information (Daptomycin Consult Active) 1 ea N/A UD PRN PRN Reason: Consult Stop: 02/24/21 00:27 Ondansetron HCl (Ondansetron Inj 2 Mg/Ml 2 Ml Vial) 4 mg IV Q6H PRN PRN Reason: Nausea Stop: 02/04/21 18:48 Last Admin: 01/24/21 09:26 Dose: 4 mg Documented by: Oxycodone HCl (Oxycodone Hcl Ir 5 Mg Tab (Immediate Release)) 10 mg PO QID PRN PRN Reason: Pain Stop: 02/02/21 19:30 Last Admin: 01/24/21 18:52 Dose: 10 mg Documented by: Pantoprazole Sodium (Pantoprazole 40 Mg Tab) 40 mg PO QAM NAY Stop: 02/05/21 08:59 Last Admin: 01/25/21 08:03 Dose: 40 mg Documented by: Phenylephrine HCl (Anusol Supp 1 Ea) 1 ea [place] BID NAY Stop: 02/19/21 20:59 Last Admin: 01/25/21 08:21 Dose: Not Given Documented by: Polyethylene Glycol (Polyethylene (Miralax) 17 Gm Pack) 17 gm PO DAILY NAY Stop: 02/09/21 17:14 Last Admin: 01/25/21 08:21 Dose: Not Given Documented by: Senna/Docusate Sodium (Docusate Sodium/Senna 50/8.6mg Tab) 1 tab PO HS ANY Stop: 02/09/21 20:59 Last Admin: 01/24/21 21:23 Dose: 1 tab Documented by: Thiamine HCl (Thiamine Hcl 100 Mg Tab) 100 mg PO QAM NAY Stop: 02/24/21 10:59 Last Admin: 01/25/21 11:39 Dose: 100 mg Documented by: Vitamin D (Cholecalciferol 1,000 Units 25 Mcg Tab) 2,000 units PO DAILY NAY Stop: 02/05/21 08:59 Last Admin: 01/25/21 08:03 Dose: 2,000 units Documented by: (1) Sepsis Sepsis acute organ dysfunction status: with acute organ dysfunction Sepsis type: sepsis due to unspecified organism Severe sepsis acute organ dysfunction type: unspecified Severe sepsis shock status: unspecified Qualified Code(s): A41.9 - Sepsis, unspecified organism; R65.20 - Severe sepsis without septic shock
--- NOTE | 2021-01-25 14:29 | XCELERA ---
[id number]
[2021-01-25 20:15] LABS: Bilirubin Urine Negative (Negative); Blood Urine 3+ (Negative); Glucose Urine UA Negative (Negative); Ketones Urine Negative (Negative); Leukocyte Esterase Urine 3+ (Negative); Nitrite Urine Positive (Negative); Protein Urine 3+ (Negative); Specific Gravity Urine 1.025 (1.000-1.030); Urobilinogen Urine Negative (Negative); pH Urine 6.5 (4.5-7.5)
[2021-01-25 20:20] LABS: Color Urine Red
[2021-01-25 20:21] LABS: Appearance Urine Cloudy (Clear)
[2021-01-25 20:25] LABS: Partial Thromboplastin Time 27.5 Seconds (21.0-31.0)
[2021-01-25 20:29] LABS: Epithelial Cell Urine 0-5 /lpf (0-5); RBC Urine >30 /hpf (0-4); WBC Urine >30 /hpf (0-5)
[2021-01-25 20:30] LABS: Bacteria Urine 2+ (Negative)
[2021-01-25] MEDS: DULoxetine HCL 20 MG CAP PO SCH (21:28)
[2021-01-25] MEDS: ATORVASTATIN 40 MG TAB PO SCH (21:29)
[2021-01-25] MEDS: DOCUSATE SODIUM/SENNA 50/8.6MG TAB PO SCH (21:30)
[2021-01-26] MEDS ORDERED: DAPTOmycin 475 MG in SYRINGE 0 ML IV SCH (01:00)
[2021-01-26] MEDS: NORMOSOL-R 1,000 ML IV SCH ×2 (01:10→12:41)
[2021-01-26] MEDS: NOREPINEPHRINE/D5W 8 MG/508 ML BAG IV SCH ×3 (01:12→12:45)
[2021-01-26 04:28] LABS: Hematocrit (blood only) 27.2 % (37-47); Hemoglobin 9.1 g/dL (12.0-16.0); Mean Corpuscular Hemoglobin 28.5 pg (25-34); Mean Corpuscular Hgb Conc 33.5 g/dL (32-36); Mean Corpuscular Volume 85.3 fL (80-100); Mean Platelet Volume 10.4 fL (7.4-10.4); Nucleated RBC # (auto) 0.02 K/uL (0-0); Nucleated RBC % (auto) 0.2 %; Platelet Count 200 K/uL (130-400); RDW Coefficient of Variation 19.4 % (11.5-14.5); RDW Standard Deviation 61.5 fL (36.4-46.3); Red Blood Count 3.19 M/uL (4.2-5.4); White Blood Count 12.75 K/uL (4.8-10.8)
[2021-01-26 04:54] LABS: Basophils # (auto) 0.01 K/uL (0-0.2); Basophils % (auto) 0.1 %; Echinocytes 2+; Immature Granulocytes # (auto) 1.15 K/uL (0.00-0.02); Lymphocytes # (auto) 0.38 K/uL (1.2-3.4); Monocytes # (auto) 0.28 K/uL (0.11-0.59); Monocytes % (auto) 2.2 %; Neutrophils # (auto) 10.93 K/uL (1.4-6.5); Neutrophils % (auto) 85.7 %; Polychromasia 1+
[2021-01-26 04:58] LABS: Albumin Level 1.2 gm/dl (3.4-5.0); BUN Creatinine Ratio 22.1 (10-20); Bilirubin Direct 0.1 mg/dl (0-0.2); Bilirubin,Total 0.3 mg/dl (0.2-1); Calcium 7.2 mg/dl (8.5-10.1); Creatinine Clr Calc Pharmacy 31.2 ml/min; Est GFR (African American) 31.8; Est GFR (Non-African American) 27.4; Magnesium 2.3 mg/dl (1.8-2.4); Phosphorus 4.2 mg/dl (2.5-4.9); Potassium 4.9 mmol/L (3.5-5.1); Total Protein 4.1 gm/dl (6.4-8.2)
[2021-01-26] MEDS: HEPARIN SODIUM/DEXTROSE 25,000 UNITS/500 ML BAG IV SCH (05:23)
--- NOTE | 2021-01-26 06:02 | Electrocardiogram Report ---
Test Reason : Blood Pressure : / mmHG Vent. Rate : 087 BPM Atrial Rate : 087 BPM P-R Int : 160 ms QRS Dur : 086 ms QT Int : 356 ms P-R-T Axes : 076 -10 074 degrees QTc Int : 428 ms Normal sinus rhythm Low voltage QRS Septal infarct , age undetermined Nonspecific ST and T wave abnormality Abnormal ECG When compared with ECG of 05-JAN-2021 13:17, Septal infarct is now Present Confirmed by Harrison Ware ([id number]) on 01/26/2021 6:02:23 AM Referred By: REFERRED SELF Confirmed By:Harrison Ware
--- NOTE | 2021-01-26 07:35 | Critical Care Progress Note ---
Date of Service January 26, 2021 Assessment & Plan (1) Admitted to intensive care unit: Reason Critically Ill: 75-year-old female with PMHx significant for severe aortic stenosis, T2DM, COPD, uterine cancer s/p radiation, admitted on 01/05 and previously in the ICU for vasopressor support due to hypotension/septic shock, now re-presenting to ICU on 01/25 for vasopressor support. Neuro - [facility]: POSITIVE, A+O to self and year only - Anxiety/Depression: continue home Bupropion/Buspirone/Duloxetine - pain: PRN Tylenol/Dilaudid Cardiac - septic shock given leukocytosis, elevated procalcitonin >4, recent UTI - TTE showing EF 50-55%, LVH, severe - venous duplex studies showing extensive bilateral lower extremity total occlusive thromboses extending to distal IVC; portal vein and central venous catheter patent without thromboses - suspect severe aortic stenosis as well as significant venous thrombotic disease are contributing to shock as well - Troponin peaked at 0.128, likely demand ischemia secondary to above - continue Levophed gtt - target MAP>65 - continue therapeutic Heparin gtt - adjust as necessary to maintain PTT in therapeutic range - last PTT last night subtherapeutic at 27.5; gtt rate increased and repeat PTT pending - CVA/PAD - continue statin - HTN - held Metoprolol - Severe - cardiology on board, plan for TAVR work-up once medically stable Respiratory - History of NICOLASA - BiPAP HS 26/10 home settings - Currently maintaining oxygen saturation on room air with sats 98 to 100% - No active disease noted on chest x-ray - Continuous monitoring on pulse ox GI - continue clear liquid diet for now, can advance as tolerated - continue bowel regimen, strict I/Os RENAL/LYTES - SELWYN on CKD stage III - Cr worsening to 1.79 today (BUN:Cr ratio >20:1) from baseline 1.1, hydronephrosis resolved on CT imaging and L ureteral stent in place - Suspect pre-renal injury 2/2 shock - Lactate 2.4 --> 3.0 today, suspect 2/2 shock as well - Na 136 --> 130 today, suspect hypovolemic hyponatremia 2/2 severe third- spacing/anasarca - Pressors to maintain MAP greater than 65, as mentioned above - Cautious fluid resuscitation with Normosol 80cc/hr, given diastolic heart failure/severe - Avoid nephrotoxins and renally adjust medication - continue Thiamine 100mg PO QAM - Strict I/Os - UTI/cystitis - s/p antibiotics for Klebsiella/VRE bacterial UTIs, transitioned back to IV abx on 01/25 given septic shock (see ID below) - Tentative plan for urology to remove ureteral stent after discharge, stent re-demonstrated as patent on CT abdomen - History of ureteric cancerstatus post radiation - UOP 0.26 cc/kg/hr, suspect due to shock/anasarca - mccurdy changed on 01/25 - continue - strict I/Os ENDO - T2DM - most recent A1c of 4.6 and continued hypoglycemic on this admission. - TSH within normal limits - Sliding scale per protocol, and ICU hyperglycemic protocol - continue ACHS BSG checks, increase frequency if becomes symptomatic HEME - hemoglobin remains stable with previous baselines - Factor V Leyden mutation with history of DVT/PE - s/p IVC filter - No longer on Coumadin due to recurrent hematochezia - PTT subtherapeutic as mentioned above; Heparin gtt increased and repeat PTT this AM is pending - continue to trend CBC and coags, adjust Heparin gtt as necessary to maintain PTT within therapeutic range ID - Septic shock - procalcitonin >4, lactate up-trending to 3.0, h/o VRE/Klebsiella/yeast UTI this admission - suspect urosepsis with contribution of severe and veno-occlusive disease as mentioned above - Blood cultures/fungal blood cultures and urine culture pending - continue Daptomycin, Cefepime and Caspofungin - Monitor fever curve INTEGUMENTARY - bilateral venous stasis dermatitis in addition to large ecchymosis on left lateral thigh with overlying bullae - likely worsening due to anasarca and extensive veno-occlusive disease - continue to monitor closely for progression LINES/IV ACCESS - - R IJ CVC, PIVs, mccurdy intact DVT ppx - Heparin gtt treatment dosing (see above) GI ppx - Pantoprazole 40mg PO QAM CODE STATUS: DNR/DNI Dispo: Palliative care consult placed to ascertain long-term care goals Thank you for allowing us to be part of this patient's care. Please refer to Dr. Quigley's documentation for any further recommendations. (2) Inferior vena cava syndrome: (3) DVT (deep venous thrombosis): (4) Aortic stenosis, severe: (5) Factor V Leiden mutation: (6) SELWYN (acute kidney injury): (7) Anasarca: Admission and Anticipated Discharge Date Admission Date: January 05, 2021 Subjective Levophed increased overnight due to SBPs down to 60s - subsequently up to 80s this morning. This morning the patient reports understanding she is at [facility] but wants to be "transferred to [facility]". A+O to self and year only. Patient is mildly short of breath but denies syncope/near-syncope. Reports that her sheets are "soaked" - per nursing the patient's skin is weeping, most prominently on her LLE. Patient denies fever/chills, chest pain, N/V, abdominal pain. Review of Systems Review of Systems: Pertinent positives and negatives mentioned in HPI. Physical Exam Physical Exam: General: A&O to self and year only. NAD. Obese. HEENT: Atraumatic, normocephalic. Pulm: Decreased air entry bilaterally, -wheezes, -rales, -rhonchi. Symmetrical chest rise. No increase work of breathing. No respiratory distress. Cardiac: tachycardic rate, regular rhythm, 1/6 systolic murmur at right upper sternal border. Radial pulses intact and symmetrical. Severe anasarca with pitting edema throughout lower extremities up to abdomen. Abdominal: soft, non-tender, non-distended, BS x 4 Skin: left thigh with large ecchymosis covering majority of lateral thigh, with overlying bullae - skin sloughs and weeps with light touch. No bullae or sloughing skin anywhere besides for lateral thigh. Results & Data Results & Data ([facility]) Vital Signs (Past 12 Hours) Vital Signs Temp Pulse Resp BP Pulse Ox 01/26/21 06:30 37.4 C 115 H 25 H 98 01/26/21 06:00 37.4 C 116 H 23 98 01/26/21 05:30 37.5 C 118 H 24 94 01/26/21 05:00 37.5 C 120 H 26 H 97 01/26/21 04:37 37.5 C 118 H 25 H 84/68 L 99 01/26/21 04:00 37.5 C 119 H 24 98 01/26/21 03:37 37.5 C 118 H 17 93/65 L 100 01/26/21 03:00 37.5 C 118 H 19 97 01/26/21 02:37 37.5 C 119 H 16 106/47 L 98 01/26/21 02:00 37.3 C 115 H 26 H 99 01/26/21 01:37 37.5 C 113 H 21 92/77 L 98 01/26/21 01:00 37.4 C 115 H 24 98 01/26/21 00:00 37.4 C 115 H 26 H 97 01/25/21 23:37 37.4 C 113 H 24 64/52 L 97 01/25/21 23:00 37.4 C 113 H 26 H 96 01/25/21 22:37 37.4 C 110 H 0 L 97 01/25/21 22:29 37.4 C 107 H 26 H 56/41 L 96 01/25/21 22:21 37.4 C 108 H 26 H 101/42 L 98 01/25/21 22:00 37.4 C 106 H 26 H 97 01/25/21 21:36 37.3 C 106 H 26 H 93/57 L 98 01/25/21 21:00 37.3 C 107 H 23 96 01/25/21 20:37 37.2 C 107 H 12 70/44 L 95 01/25/21 20:00 37.2 C 105 H 19 94 01/25/21 19:40 37.1 C 104 H 11 L 95/66 L 95 01/25/21 19:37 37.1 C 104 H 27 H 59/42 L 95 Resident Activity Tracking Resident Involvement: Resident Care Provided Care Provided: Adult [facility] Medicine
[2021-01-26] MEDS: CEFEPIME 2,000 MG in SYRINGE 0 ML IV SCH (07:51)
[2021-01-26] MEDS: buPROPion SR 100 MG TABCR PO SCH ×2 (07:51→12:41)
[2021-01-26] MEDS: CHOLECALCIFEROL 1,000 UNITS 25 MCG TAB PO SCH (07:52)
[2021-01-26] MEDS: POLYETHYLENE (MIRALAX) 17 GM PACK PO SCH (07:52)
[2021-01-26] MEDS: busPIRone 5 MG TAB PO SCH ×2 (07:52→12:41)
[2021-01-26] MEDS: PANTOprazole 40 MG TAB PO SCH (07:52)
[2021-01-26] MEDS: FERROUS SULFATE 325 MG TAB PO SCH (07:52)
[2021-01-26] MEDS: THIAMINE HCL 100 MG TAB PO SCH (07:52)
[2021-01-26] MEDS: ACETAMINOPHEN 325 MG TAB PO PRN (08:01)
--- NOTE | 2021-01-26 09:42 | Billing Data ---
Date of Service January 26, 2021 Coding Level of Care Code Critical Care 1st - mins
--- NOTE | 2021-01-26 10:33 | Urology Progress Note ---
Date of Service January 26, 2021 Assessment & Plan (1) Left ureteral stone: (2) Recurrent UTI (urinary tract infection): 75 year-old female patient, with multiple comorbidities, admitted with sepsis and acute UTI. -Plan of care reviewed with Dr. Castellanos. -She continues with ICU observation. Unfortunately, she has not had significant improvement in clinical status. -She remains afebrile, hypotensive, and tachycardic. -Labs reviewed - white count and creatinine elevated, decreased urine output. -Repeat urine and blood cultures pending. -Recommend continued supportive care and antibiotic therapy. -Palliative care consult in place to discuss goals of care, meeting with patient's sons planned today. -No acute intervention indicated at this time. -Will continue to follow while inpatient. Admission and Anticipated Discharge Date Admission Date: January 05, 2021 Subjective Patient examined, acutely ill. Continues with ICU observation. Patient was found to have extensive bilateral lower extremity total occlusive clot which extends into the distal IVC. Now on Heparin drip. Continues to report moderate amount of left lower extremity pain. Denies abdominal/flank pain. Ramírez catheter changed 01/25, now to gravity. No hematuria. Denies fever or chills. Chart review: Afebrile Wbc 12.75 (previously 6.72) Hgb 9.1 Creatinine 1.79 (previously 1.50) Repeat urine and blood cultures pending. Patient restarted on IV Caspofungin, IV Daptomycin, and IV Cefepime. Repeat CT abd/pelvis 01/25 - IMPRESSION: 1. No evidence of bowel obstruction. No evidence of free air 2. Left-sided nephrolithiasis 3. Indwelling left-sided nephroureteral stent. Bladder calculi 4. Chronic left hip deformity 5. Small pericardial effusion. Small left pleural effusion. 6. Gallbladder distention. 7. Muscular atrophy. Diffuse body wall edema. Denies additional urologic concerns today. Review of Systems Constitutional: as per Subjective / HPI Gastrointestinal: as per Subjective / HPI Genitourinary: as per Subjective / HPI Physical Exam Constitutional: + ill appearing, + obese, + frail appearing and cooperative Respiratory: normal respiratory effort; no respiratory distress, no cough and no audible wheezes Cardiovascular: Generalized anasarca and bilateral lower extremity edema. Gastrointestinal (Abdomen): Inspection/Auscultation: abdomen normal to inspection and + abdomen distended Percussion/Palpation: abdomen soft; abdomen nontender and no guarding Skin: Multiple wound dressings to left lower extremity. Significant swelling with ecchymotic/discolored area to left hip and upper thigh. Psychiatric: Orientation: alert Affect: + flat affect Alert to person, place, month. Does have periods of confusion during discussion. Genitourinary: Ramírez catheter intact draining cloudy yellow urine, minimal output noted. Results & Data ([facility]) Vital Signs (Past 12 Hours) Vital Signs Temp Pulse Resp BP Pulse Ox 01/26/21 06:30 37.4 C 115 H 25 H 98 01/26/21 06:00 37.4 C 116 H 23 98 01/26/21 05:30 37.5 C 118 H 24 94 01/26/21 05:00 37.5 C 120 H 26 H 97 01/26/21 04:37 37.5 C 118 H 25 H 84/68 L 99 01/26/21 04:00 37.5 C 119 H 24 98 01/26/21 03:37 37.5 C 118 H 17 93/65 L 100 01/26/21 03:00 37.5 C 118 H 19 97 01/26/21 02:37 37.5 C 119 H 16 106/47 L 98 01/26/21 02:00 37.3 C 115 H 26 H 99 01/26/21 01:37 37.5 C 113 H 21 92/77 L 98 01/26/21 01:00 37.4 C 115 H 24 98 01/26/21 00:00 37.4 C 115 H 26 H 97 01/25/21 23:37 37.4 C 113 H 24 64/52 L 97 01/25/21 23:00 37.4 C 113 H 26 H 96 01/25/21 22:37 37.4 C 110 H 0 L 97 01/25/21 22:29 37.4 C 107 H 26 H 56/41 L 96 PG Care Time/CCT Total # of Minutes Spent Total Time Spent with Patient: Total time spent is greater than 50% in coordination of care (as documented) at patient's floor/unit and/or counseling patient: Coding Level of Care Code 70156 Subseq Hosp Care Lvl 2 Diagnoses Left ureteral stone N20.1 Recurrent UTI (urinary tract infection) N39.0
[2021-01-26] MEDS ORDERED: CASPOFUNGIN 50 MG in SODIUM CHLORIDE 0.9% 250 ML IV SCH (11:00)
[2021-01-26 12:18] VITALS: BP 85/68
--- NOTE | 2021-01-26 14:16 | Hospitalist Progress Note ---
Date of Service January 26, 2021 Assessment & Plan (1) Sepsis: Patient is critically ill: Initially admitted with septic shock which improved with continued management Developed hypotensive shock again early this morning which did not improve with boluses of normal saline She was transferred to ICU for pressor support after appropriate test and administration of antibiotic for possible sepsis Appreciate underlay stitcher input and recommendation Has been put on intravenous cefepime,daptomycin and caspofungin Blood and urine cultures have been sent-blood cultures are negative and urine culture is pending She remains critically ill and her prognosis is very poor given other comorbid conditions that she have Palliative care is consulted to help with goals of care Heart condition seems to be deteriorating with the development of extensive clot in the lower extremities She has been requiring pressor exams to maintain her blood pressure which remains below normal right now We will continue current supportive care (2) Cystitis: (3) SELWYN (acute kidney injury): (1) Sepsis: 75 yr female with H/O DM II, chronic diastolic heart failure, aortic stenosis, CKD III, HTN, CVA, PVD, COPD, uterine cancer s/p radiation, gastric bypass, mood disorder, factor V Leiden mutation, colitis, recurrent UTI secondary to obstructive uropathy presented to ER with complaint of nausea and generalized weakness. Septic Shock Resolved due to complicated UTI resolved , vitals been stable Likely Source: Complicated UTI H/O Left ureteral stent placement by Dr. Castellanos - 12/02/2020 Negative COVID Screen Urine Culture: Klebsiella, Enterococcus VRE (Enterococcus VRE likely colonization as per ID) ID consulted: d/c Meropenem>> transition to Augmentin : last dose completed 01/13/2021 Remains stable as of this morning Appreciate urologist management and recommendation Amphotericin Day 04/16 in progress Repeat urine culture is negative Repeat CT scan of the abdomen did not show any stent obstruction Acute Kidney Injury on CKD III Likely ATN Creatinine improved to approx baseline Baseline Cr ~1 Avoid nephrotoxic agents as able On Lasix 10mg IV tid Transitioned to Lasix 40mg in AM, 20mg PM Edema is minimally improved Her creatinine has been increasing Recent colitis/hematochezia No further GI symptoms CT abdomen pelvis shows near complete resolution of colitis H/O poor bowel prep for colonoscopies in past. Outpatient colonoscopy planned GI recommends out pt follow up Hg stable at 8 No signs of melena/hematochezia per patient Has been on Anusol twice daily Elevated troponin In setting of renal failure /evidence of ACS no complain of chest pain or SOB ECHO: Left ventricle wall motion is normal. Mildly elevated troponins again noted likely secondary to septic shock Factor V Leiden mutation/H/O Recurrent PE/DVT S/P IVC filter placement Off Coumadin secondary to recurrent hematochezia High risk for bleeding complication, poor candidate for long-term anticoagulation Has been getting intravenous heparin with the development of extensive DVT involving the lower extremities Chronic diastolic heart failure EF 55 to 59%, TTE 2019 monitor I's and O's given IV Lasix , volume status has improved now euvolemic Severe aortic stenosis TAVR contemplated in the future pending cardiac catheterization Cardiology following -appreciate input Patient remains acutely ill with infection/sepsis, renal failure Needs to improve clinically before considering cardiac intervention History of uterine Cancer S/P Radiation DVT Px: Lovenox SQ Code Status DNI Disposition: Remains critically ill Palliative care consulted I discussed with the patient's son in detail on 01/25/2021 I was informed that he will be coming today to make further decisions about his mom's care Admission and Anticipated Discharge Date Admission Date: January 05, 2021 Subjective 01/24/2021 The patient was seen and examined in medical telemetry unit She remained weak and lethargic and complains to have some back pain and left hip pain Denies any other significant symptoms He was noted to have low blood sugar in the morning but that went up with usual treatment 01/25/2021 The patient was seen and examined in ICU She was noted to be very hypotensive early this morning which did not improve with 1 L of normal saline bolus She was transferred to ICU for pressor support She remains very weak and lethargic as of this morning and complains some pain involving the left hip 01/26/2021 The patient was seen and examined in ICU She has not been doing well Still complains to have left hip pain and remains extremely lethargic Denies any shortness of breath, any nausea and or vomiting Review of Systems Review of Systems: All systems reviewed and are unremarkable except as noted below Cardiovascular: Additional Comments: Generalized edema Musculoskeletal: Pain in left hip Neurologic: + generalized weakness Physical Exam Physical Exam: Lying in bed comfortably with generalized edema Constitutional: well developed, well nourished, + ill appearing and + obese Eyes: PERRL, conjunctivae normal, anicteric sclerae ENMT: external ear and nose normal, oropharynx normal Neck: trachea midline, no thyromegaly Respiratory: no respiratory distress Auscultation: + diminished lung sounds (Bilaterally with bibasilar crackles) Cardiovascular: Rate/Rhythm: regular rate and regular rhythm Heart Sounds: + murmur (2/6 over the remaining otic area) Extremities: + edema (2+ edema b ilaterally) Gastrointestinal (Abdomen): Inspection/Auscultation: normal bowel sounds; abdomen not distended Percussion/Palpation: abdomen soft; abdomen nontender Neurologic: Alert and awake. Remains generally very weak and lethargic Psychiatric: Judgement: + limited judgement Results & Data Results & Data ([facility]) Vital Signs (Past 12 Hours) Vital Signs Temp Pulse Resp BP Pulse Ox 01/26/21 12:00 37.2 C 116 H 30 H 99 01/26/21 11:00 37.3 C 115 H 29 H 98 01/26/21 09:38 37.4 C 116 H 17 85/68 L 99 01/26/21 08:37 37.4 C 118 H 27 H 87/58 L 97 01/26/21 07:38 37.4 C 114 H 28 H 152/111 H 99 01/26/21 06:30 37.4 C 115 H 25 H 98 01/26/21 06:00 37.4 C 116 H 23 98 01/26/21 05:30 37.5 C 118 H 24 94 01/26/21 05:00 37.5 C 120 H 26 H 97 01/26/21 04:37 37.5 C 118 H 25 H 84/68 L 99 01/26/21 04:00 37.5 C 119 H 24 98 01/26/21 03:37 37.5 C 118 H 17 93/65 L 100 01/26/21 03:00 37.5 C 118 H 19 97 01/26/21 02:37 37.5 C 119 H 16 106/47 L 98 Laboratory Results Short CBC 01/26/21 Range/Units 04:17 WBC 12.75 H (4.8-10.8) K/uL Hgb 9.1 L (12.0-16.0) g/dL Hct 27.2 L (37-47) % Plt Count 200 (130-400) K/uL BMP 01/26/21 04:17 Sodium 130 L Potassium 4.9 Chloride 105 Carbon Dioxide 12 L BUN 40 H Creatinine 1.79 H Glucose 136 H Calcium 7.2 L Cardiac Enzymes 01/25/21 Range/Units 16:29 Troponin I 0.118 H* (0-0.045) ng/ml Liver Function 01/26/21 Range/Units 04:17 Total Bilirubin 0.3 (0.2-1) mg/dl Direct Bilirubin 0.1 (0-0.2) mg/dl AST 17 (15-37) U/L ALT 15 (12-78) U/L Alkaline Phosphatase 107 (45-117) U/L Albumin 1.2 L (3.4-5.0) gm/dl Urine 01/25/21 Range/Units 19:55 Urine Color Red Urine Appearance Cloudy A (Clear) Urine pH 6.5 (4.5-7.5) Ur Specific [place] 1.025 (1.000-1.030) Urine Protein 3+ H (Negative) Urine Glucose (UA) Negative (Negative) Diagnostic Findings Imaging studies reveales: No sonographic evidence of deep venous thrombosis identified within the right internal jugular or subclavian veins around the IV catheter Ultrasound of the portal and hepatic vasculature are unremarkable Bilateral iliac vein thrombosis and thrombosis of the distal IVC And also has deep venous thrombosis within the left common femoral, superficial femoral and popliteal veins Medications Administered Current Inpatient Medications Acetaminophen (Acetaminophen 325 Mg Tab) 650 mg PO Q4H PRN PRN Reason: Pain or Fever Stop: 02/04/21 18:48 Last Admin: 01/26/21 08:01 Dose: 650 mg Documented by: Al Hydrox/Mg Hydrox/Simethicone (Aluminum/Magnesium/Simeth (Maalox Max) 30 Ml Udc) 30 ml PO Q6H PRN PRN Reason: Indigestion Stop: 02/12/21 02:50 Last Admin: 01/24/21 15:30 Dose: 30 ml Documented by: Atorvastatin Calcium (Atorvastatin 40 Mg Tab) 40 mg PO PM NAY Stop: 02/04/21 20:59 Last Admin: 01/25/21 21:29 Dose: 40 mg Documented by: Bupropion HCl (Bupropion Sr 100 Mg Tabcr) 200 mg PO BID@0700,1300 NAY Stop: 02/19/21 06:59 Last Admin: 01/26/21 12:41 Dose: Not Given Documented by: Buspirone HCl (Buspirone 5 Mg Tab) 5 mg PO TID NAY Stop: 02/04/21 20:59 Last Admin: 01/26/21 12:41 Dose: Not Given Documented by: Dextrose (Dextrose 50% 50 Ml Syringe) 25 - 50 ml IV UD PRN; Protocol PRN Reason: Hypoglycemia Protocol Stop: 02/04/21 18:48 Last Admin: 01/07/21 12:59 Dose: 25 ml Documented by: Duloxetine HCl (Duloxetine Hcl 20 Mg Cap) 40 mg PO HS NAY Stop: 02/04/21 20:59 Last Admin: 01/25/21 21:28 Dose: 40 mg Documented by: Ferrous Sulfate (Ferrous Sulfate 325 Mg Tab) 325 mg PO BIDM NAY Stop: 02/16/21 16:59 Last Admin: 01/26/21 07:52 Dose: Not Given Documented by: Glucagon (Glucagon For Inj 1 Mg Vial) 1 mg SQ UD PRN; Protocol PRN Reason: Hypoglycemia Protocol Stop: 02/04/21 18:48 Glucose (Glucose 10 Tabs/Tube) 4 - 8 tabs PO UD PRN; Protocol PRN Reason: Hypoglycemia Protocol Stop: 02/04/21 18:48 Glucose (Glucose 40% Gel 15 Gm Tube) 15 - 30 gm PO UD PRN; Protocol PRN Reason: Hypoglycemia Protocol Stop: 02/04/21 18:48 Heparin Sodium (Beef Lung) (Heparin 10 Unit/Ml 5 Ml Flush) 5 ml FLUSH PRN PRN PRN Reason: Flush Stop: 02/05/21 22:42 Last Admin: 01/24/21 23:17 Dose: 5 ml Documented by: Hydromorphone HCl (Hydromorphone Inj 0.5 Mg/0.5 Ml Syr) 0.5 mg IV Q6 PRN PRN Reason: Severe Pain Stop: 02/08/21 10:34 Norepinephrine Bitartrate (Levophed/D5w) 8 mg in 508 mls @ 17.164 mls/hr IV .Q24H NAY; Protocol Stop: 02/24/21 00:14 Last Titration: 01/26/21 14:02 Dose: 0.18 mcg/kg/min, 61.8 mls/hr Documented by: Parenteral Electrolytes (Normosol-R) 1,000 mls @ 80 mls/hr IV .[id number] [facility] Stop: 02/24/21 00:29 Last Admin: 01/26/21 12:41 Dose: 80 mls/hr Documented by: Cefepime HCl 2,000 mg/ Syringe 20 mls @ 5 mls/min IV Q12H [facility]; Protocol Stop: 02/03/21 23:59 Last Admin: 01/26/21 07:51 Dose: 5 mls/min Documented by: Daptomycin 475 mg/ Syringe 9.5 mls @ 4.25 mls/min IV Q24H [facility]; Protocol Stop: 02/05/21 00:59 Last Admin: 01/26/21 01:10 Dose: 4.25 mls/min Documented by: Caspofungin 50 mg/ Sodium (Chloride) 260 mls @ 260 mls/hr IV DAILY@1100 NAY Stop: 02/05/21 10:59 Last Infusion: 01/26/21 12:40 Dose: Infused Documented by: Heparin Sodium/Dextrose (Heparin Sodium/Dextrose) 25,000 units in 500 mls @ 30 mls/hr IV .[id number] [facility]; Protocol Stop: 02/24/21 11:14 Last Titration: 01/26/21 06:57 Dose: 1,500 units/hr, 30 mls/hr Documented by: Lactobacillus Acidoph/Casei/Rhamnos (Advanced Probiotic 1250 Mg Capsule) 2 cap PO QAM [facility] Stop: 02/05/21 08:59 Last Admin: 01/25/21 08:02 Dose: 2 cap Documented by: Miconazole Nitrate (Miconazole Nitrate Powder 43 Gm) 1 appln EXT PRN PRN PRN Reason: Affected Skin Folds Stop: 02/13/21 18:28 Last Admin: 01/24/21 21:24 Dose: 1 appln Documented by: Miscellaneous (Carbohydrates For Hypoglycemia ) 15 - 30 gm PO UD PRN PRN Reason: Hypoglycemia Protocol Stop: 02/04/21 18:48 Last Admin: 01/24/21 12:10 Dose: 30 gm Documented by: Miscellaneous (Icu Protocol For Hyperglycemia) 1 ea N/A PRN PRN; Protocol PRN Reason: Hyperglycemia Protocol Stop: 01/27/21 00:15 Miscellaneous Information (Daptomycin Consult Active) 1 ea N/A UD PRN PRN Reason: Consult Stop: 02/24/21 00:27 Ondansetron HCl (Ondansetron Inj 2 Mg/Ml 2 Ml Vial) 4 mg IV Q6H PRN PRN Reason: Nausea Stop: 02/04/21 18:48 Last Admin: 01/24/21 09:26 Dose: 4 mg Documented by: Oxycodone HCl (Oxycodone Hcl Ir 5 Mg Tab (Immediate Release)) 10 mg PO QID PRN PRN Reason: Pain Stop: 02/02/21 19:30 Last Admin: 01/24/21 18:52 Dose: 10 mg Documented by: Pantoprazole Sodium (Pantoprazole 40 Mg Tab) 40 mg PO QAM NAY Stop: 02/05/21 08:59 Last Admin: 01/26/21 07:52 Dose: Not Given Documented by: Phenylephrine HCl (Anusol Supp 1 Ea) 1 ea DE BID NAY Stop: 02/19/21 20:59 Last Admin: 01/25/21 08:21 Dose: Not Given Documented by: Polyethylene Glycol (Polyethylene (Miralax) 17 Gm Pack) 17 gm PO DAILY NAY Stop: 02/09/21 17:14 Last Admin: 01/26/21 07:52 Dose: Not Given Documented by: Senna/Docusate Sodium (Docusate Sodium/Senna 50/8.6mg Tab) 1 tab PO HS NAY Stop: 02/09/21 20:59 Last Admin: 01/25/21 21:30 Dose: 1 tab Documented by: Thiamine HCl (Thiamine Hcl 100 Mg Tab) 100 mg PO QAM NAY Stop: 02/24/21 10:59 Last Admin: 01/26/21 07:52 Dose: Not Given Documented by: Vitamin D (Cholecalciferol 1,000 Units 25 Mcg Tab) 2,000 units PO DAILY NAY Stop: 02/05/21 08:59 Last Admin: 01/26/21 07:52 Dose: Not Given Documented by: (1) Sepsis Sepsis acute organ dysfunction status: with acute organ dysfunction Sepsis type: sepsis due to unspecified organism Severe sepsis acute organ dysfunction type: unspecified Severe sepsis shock status: unspecified Qualified Code(s): A41.9 - Sepsis, unspecified organism; R65.20 - Severe sepsis without septic shock
[2021-01-26 14:33] VITALS: O2SAT 98
[2021-01-26 15:51] VITALS: PULSE 113; TEMP 99
[2021-01-26] MEDS ORDERED: LORazepam 0.5 MG/1 ML VIAL IV PRN ×2 (16:39→20:43)
[2021-01-26] MEDS ORDERED: ONDANSETRON 4 MG OD TAB SL PRN (16:39)
[2021-01-26] MEDS ORDERED: ONDANSETRON INJ 2 MG/ML 2 ML VIAL IV PRN ×2 (16:39→20:43)
[2021-01-26] MEDS ORDERED: LORazepam 0.5 MG TAB PO PRN (16:39)
[2021-01-26] MEDS ORDERED: GLYCOPYRROLATE 0.2 MG/ML VIAL IV PRN (16:54)
[2021-01-26] MEDS ORDERED: HYDROmorphone INJ 0.5 MG/0.5 ML SYR IV PRN (16:55)
--- NOTE | 2021-01-26 17:47 | Palliative Care Progress Note ---
Date of Service January 26, 2021 Assessment & Plan (1) Palliative care encounter: I met with Pb's sons and Dr. Cifuentes to discuss plan of care. Dr. Cifuentes explained her current status and they understand that prognosis is poor. They express that they knew this was coming but had been hopeful when she seemed to rebound earlier. We talked about whether Pb had talked to them about what she would want for her care if seriously ill. She has a living will and the two brothers are co POAs for healthcare. They are both in agreement that focus of her care should be on comfort at this point. They asked questions about prognosis and what to expect which were answered. There are some family members who would also like to see her and they will be notified. Medications were adjusted with comfort focus. She remains on levophed with systolic BP in 90s. That will continue until all family members have been able to visit. At that time, we will wean BP support. I explained to her sons that it is likely that she will shortly after that. If she is stable, she will be moved to private room outside ICU to allow family more space and privacy. Reviewed orders and care plan with Dr. Cifuentes. Admission and Anticipated Discharge Date Admission Date: January 05, 2021 Subjective Significant decline today. Now with DIC. Sons have been called to bedside. Review of Systems Review of Systems: Unobtainable due to reduced consciousness Palliative Performance Score 10% Physical Exam Constitutional: + lethargic Respiratory: no labored breathing sats WNL on RA Neurologic: + obtunded Results & Data ([facility]) Vital Signs (Past 12 Hours) Vital Signs Temp Pulse Resp BP Pulse Ox 01/26/21 15:00 99.0 F 113 H 31 H 98 01/26/21 14:45 99.0 F 114 H 38 H 98 01/26/21 14:30 99.0 F 114 H 31 H 100 01/26/21 14:15 98.8 F 27 H 100 01/26/21 14:00 98.8 F 114 H 27 H 98 01/26/21 13:00 98.8 F 110 H 30 H 99 01/26/21 12:00 99.0 F 116 H 30 H 99 01/26/21 11:00 99.1 F 115 H 29 H 98 01/26/21 09:38 99.3 F 116 H 17 85/68 L 99 01/26/21 08:37 99.3 F 118 H 27 H 87/58 L 97 01/26/21 07:38 99.3 F 114 H 28 H 152/111 H 99 01/26/21 06:30 99.3 F 115 H 25 H 98 01/26/21 06:00 99.3 F 116 H 23 98 PG Care Time/CCT Total # of Minutes Spent Total Time Spent with Patient: Total time spent is greater than 50% in coordination of care (as documented) at patient's floor/unit and/or counseling patient: Total time spent 45 minutes with more than 50% of time spent on symptom management, family education and support, goals of care, coordination of care Coding Level of Care Code 34215 Subseq Hosp Care Lvl 3 Diagnoses Palliative care encounter Z51.5
[2021-01-26] MEDS ORDERED: ATROPINE SULFATE 1% OP SOLN 5 ML BTL SL PRN (20:43)
[2021-01-26] MEDS ORDERED: MoRPHine SULF/NSS 250 MG/250 ML BTL IV SCH (20:45)
--- NOTE | 2021-01-26 20:46 | Communication Note ---
Date of Service: January 26, 2021 2030: Patient's sons arrived at bedside. This had been arranged by daily services prior to my evaluation. I did present at bedside and have discussion w javan franklin regarding clinical decline of patient and impending passing. We did discuss transitioning our ongoing care goals towards peaceful passing. Patient is restless and in mild respiratory distress. Family is in agreement with starting morphine drip with goals for comfort. They understand that when morphine is started, this will inhibit the patient's ability to communicate with them (which she has been unable to do at this point regardless). They acknowledge their understanding and wish to proceed. Additionally, we discussed turning off life-sustaining medications, specifically vasopressors. They agree to this as well. The sons did have a request that the patient be able to see her therapy dog one last time. The dog is currently in the car with another family member. Family reports that her therapy dog is up to date on all vaccinations/immunizations. The [facility] is [facility] at [facility]. I discussed this with Clinical Coordinator prior to granting permission. We agree that we would be unable to obtain veterinary records at this hour, however, the dog is a small breed (Yorkie) who was previously utilized as a therapy animal and is thought to be up to date on all vaccinations per sons. At this point, I did have discussion with sons and allowed them to bring the dog to bedside with the explicit agreement that the animal would be carried into the facility as inconspicuously as possible as to not disrupt other patients/family members. The animal will be allowed to stay at bedside for no more than 10 minutes, and the animal would then be returned to the vehicle in the care of a family member after visitation. We did discuss that if the animal causes disruption that it will be removed from the facility immediately. Renzo agree completely to these conditions. I did confirm this all will beside nurse as well as Clinical Coordinator. Patient started on morphine gtt per my orders with other palliative care orders as needed. I have personally spent 32 minutes of critical care time in the direct management of this patient. This is a life/limb threatening event. This includes time spent evaluating patient, direct bedside care, chart review, placing or ders, interpretation of diagnostic studies, discussion with consultants, patient, and family members, as well as other required patient management activities. This time is exclusive of all separately billable procedures, and teaching time and separate from and in addition to any other critical care service time. Coding Level of Care Code Critical Care ea addt'l 30 min Time Spent (min) 32
[2021-01-26] MEDS ORDERED: SCOPOLAMINE 1 MG TDSY TD SCH (21:00)
--- NOTE | 2021-01-26 22:11 | Death Pronouncement Note ---
Date of Service January 26, 2021 Pronouncement Note Admission Date Admission Date: January 05, 2021 Date and Time of Date of : 01/26/21 Time of : 22:02 PCOD Preliminary cause of : Severe sepsis Contributing Factors (1) Palliative care encounter: Hospital Course Hospital Course: Patient was initially admitted on 01/05 with severe sepsis from urinary source. She initially improved and was able to be downgraded from ICU status. Throughout her stay, she has had multiple complications including recurrent sepsis and ultimately development of extensive bilateral lower extremity clot burden. Despite aggressive intervention and with escalating dose of vasopressor, the patient remained hypotensive with progression of endorgan dysfunction. After discussion with patient and family, patient was made DNR/DNI and eventually decision was made to place the patient on comfort measures only. The patient ceased to breathe at 2202 on 01/26/2021 with family at bedside. Additional Data Confirmation of : no pulse, no respirations, no heart sounds and pupils fixed and dilated Family: at bedside Attending/PCP notified?: Yes Attending physician: Janett Lyman MD Was code activated?: No Autopsy requested?: No insurance claims examiner notified?: No Organ bank notified?: No Advance directives: No Coding Level of Care Code None Diagnoses Palliative care encounter Z51.5 Time Spent (min) 20
[2021-01-27] MEDS ORDERED: CHECK SCOPOLAMINE PATCH PLACEMENT SCH
--- NOTE | 2021-01-28 07:39 | Discharge Summary ---
Date of Service January 28, 2021 Admission HPI Per Admitting Provider Pt s 75 y/o F with PMH DM II, chronic diastolic heart failure, aortic stenosis, CKD III, HTN, CVA, PVD, COPD, uterine cancer s/p radiation, gastric bypass, mood disorder, factor V Leiden mutation, colitis, recurrent UTI secondary to obstructive uropathy presented to ER with complaint of nausea and generalized weakness. Patient with history of recent UTI secondary to ureter stone obstruction. Had left ureteral stent placement by Dr. Castellanos on 12/02/2020. Urine culture positive for Morganella was treated with ertapenem. Recent admission 12/08/2020 for GI bleed/colitis. Patient was discharged home. She has been following outpatient neurology. She has Ramírez catheter in place. Patient had outpatient urine culture 12/29/2020 noted in epic positive for Klebsiella. Urology had placed patient on Bactrim. Patient states took several doses. She reports past 2 days with nausea. She vomited a couple of times. Denies any vomiting today. Patient states yesterday had 5 episodes diarrhea. She reports her stools are always dark/black in coloration. Also complaining of intermittent abdominal cramping x2 days and low back pain. She reports bilateral leg swelling x1 week. Her Lasix was increased outpatient without improvement of leg swelling. Patient states has had decreased appetite and has had poor oral intake. She reports had poor urine output in Ramírez bag the last day. She has been taking her temperatures at home and has not had any noted fevers. Patient reports has been weak for months and has not been able to ambulate at home. Denies any falls. Denies chills, diaphoresis, hematemesis, hematochezia HAYS, dizziness, syncope, vision changes, neck pain, CP, SOB, orthopnea, palpitations, cough, sore throat, choking, otalgia, rhinorrhea, paresthesias, extremity erythema or cyanosis, rashes, hematuria. Admission Exam Per Admitting Provider Physical Exam: General: no acute distress, chronic ill appearing, obese Head: normocephalic, atraumatic Eyes: PERRL, EOM's intact, conjunctiva non-injected, anicteric ENT: normal inspection external ears, nose, mucous membranes dry Neck: supple, trachea midline Lungs: clear, no respiratory distress, no wheezing/rhonchi/rales CV: RRR, +systolic murmur, no JVD, 3+ pitting edema Abd: protuberant, normal BS, soft, mild tenderness to palpation RLQ, LLQ; no CVA tenderness to percussion Ext: no cyanosis or erythema, no calf tenderness Neuro: A&O x 3, no focal deficits noted, normal affect Skin: warm, dry Principal Diagnosis Severe sepsis Discharge Data Allergies Allergy/AdvReac Type Severity Reaction Status Date / Time adhesive Allergy Intermediate BLISTERS Verified 01/05/21 15:18 WITH STERI-STRIPS Iodinated Contrast Media Allergy Intermediate hive Verified 01/05/21 15:18 [Iodinated Contrast- Oral and IV Dye] naproxen Allergy Intermediate SWELLING - Verified 01/05/21 15:18 TOLERATES ESTEVES-[address] HALL ciprofloxacin Allergy Mild RASH Verified 01/05/21 15:18 Quinolones Allergy Mild NEUROLOGIC Verified 01/05/21 15:18 SYMPTOMS Consultations 01/05/21 16:52 ED Decision to Admit Stat 01/05/21 18:49 Consult Infectious Diseases Routine 01/05/21 19:40 Consult Brick Tosser Routine 01/06/21 06:37 Consult Nephrology Routine 01/06/21 09:21 Consult Cardiology Routine 01/06/21 20:24 Consult Urology Routine 01/25/21 13:45 Consult Palliative Care Routine 01/26/21 16:40 Consult Palliative Care Routine 01/26/21 20:43 Consult Palliative Care Routine Procedures Performed Operation Date: 01/24/21 10:25 <No data on this case meets the specified criteria> Ordered Studies 01/05/21 12:57 CT abd pelvis wo con Stat 01/05/21 20:25 US point of care ultrasound Routine 01/06/21 17:01 US renal/blad retro comp Routine 01/07/21 09:38 US liver Routine 01/18/21 13:38 CT abd pelvis wo con Urgent 01/25/21 00:57 CT abd pelvis wo con Urgent CT hip LT wo con Urgent 01/25/21 01:10 CT femur LT wo con Urgent 01/25/21 09:32 US venous doppler LE BI Stat 01/25/21 10:41 US duplex aorta/iliacs/IVC ltd Stat US duplex portal hepatic veins Stat 01/25/21 10:46 US venous doppler UE RT Stat Hospital Course (1) Sepsis: Patient is critically ill: Initially admitted with septic shock which improved with continued management Developed hypotensive shock again early this morning which did not improve with boluses of normal saline She was transferred to ICU for pressor support after appropriate test and administration of antibiotic for possible sepsis Appreciate yeast maker input and recommendation Has been put on intravenous cefepime,daptomycin and caspofungin Blood and urine cultures have been sent-blood cultures are negative and urine culture is pending She remains critically ill and her prognosis is very poor given other comorbid conditions that she have Palliative care is consulted to help with goals of care Heart condition seems to be deteriorating with the development of extensive clot in the lower extremities She has been requiring pressor exams to maintain her blood pressure which remains below normal right now We will continue current supportive care (2) Cystitis: (3) SELWYN (acute kidney injury): (1) Sepsis: 75 yr female with H/O DM II, chronic diastolic heart failure, aortic stenosis, CKD III, HTN, CVA, PVD, COPD, uterine cancer s/p radiation, gastric bypass, mood disorder, factor V Leiden mutation, colitis, recurrent UTI secondary to obstructive uropathy presented to ER with complaint of nausea and generalized weakness. Septic Shock Resolved due to complicated UTI resolved , vitals been stable Likely Source: Complicated UTI H/O Left ureteral stent placement by Dr. Castellanos - 12/02/2020 Negative COVID Screen Urine Culture: Klebsiella, Enterococcus VRE (Enterococcus VRE likely colonization as per ID) ID consulted: d/c Meropenem>> transition to Augmentin : last dose completed 01/13/2021 Remains stable as of this morning Appreciate urologist management and recommendation Amphotericin Day 04/16 in progress Repeat urine culture is negative Repeat CT scan of the abdomen did not show any stent obstruction Acute Kidney Injury on CKD III Likely ATN Creatinine improved to approx baseline Baseline Cr ~1 Avoid nephrotoxic agents as able On Lasix 10mg IV tid Transitioned to Lasix 40mg in AM, 20mg PM Edema is minimally improved Her creatinine has been increasing Recent colitis/hematochezia No further GI symptoms CT abdomen pelvis shows near complete resolution of colitis H/O poor bowel prep for colonoscopies in past. Outpatient colonoscopy planned GI recommends out pt follow up Hg stable at 8 No signs of melena/hematochezia per patient Has been on Anusol twice daily Elevated troponin In setting of renal failure /evidence of ACS no complain of chest pain or SOB ECHO: Left ventricle wall motion is normal. Mildly elevated troponins again noted likely secondary to septic shock Factor V Leiden mutation/H/O Recurrent PE/DVT S/P IVC filter placement Off Coumadin secondary to recurrent hematochezia High risk for bleeding complication, poor candidate for long-term anticoagulation Has been getting intravenous heparin with the development of extensive DVT involving the lower extremities Chronic diastolic heart failure EF 55 to 59%, TTE 2019 monitor I's and O's given IV Lasix , volume status has improved now euvolemic Severe aortic stenosis TAVR contemplated in the future pending cardiac catheterization Cardiology following -appreciate input Patient remains acutely ill with infection/sepsis, renal failure Needs to improve clinically before considering cardiac intervention History of uterine Cancer S/P Radiation DVT Px: Lovenox SQ Code Status DNI Disposition: Remains critically ill Palliative care consulted I discussed with the patient's son in detail on 01/25/2021 I was informed that he will be coming today to make further decisions about his mom's care Total Time Total Time Spent Total Time Spent (In Minutes): 20 minutes Total Time Includes: Other (Discharge summery) Discharge Plan Discharge Items Patient Disposition: Discharge Diagnosis: Severe Sepsis Addtl Attending Provider Instructions: Family members notified
== END 2021-01-26 22:02 | disposition expired | DRG 871 ==
LOC: ED 11:42 → SUATTDRO 17:18 → 2E 17:18 → 1E 20:10 → 2W 01-08 12:29 → 1E 01-25 00:42